=== PATIENT | female | born 1955 | race Caucasian/White ===

== ENCOUNTER → 2017-09-09 05:00 | Outpatient (REF) | payer MEDICARE, SELFPAY ==
[2017-09-09 07:43] LABS: Hematocrit 34.4 % (37-47); Mean Corpuscular Volume 93.7 fL (81-99); Mean Platelet Vol. 10.6 fl (6.2-12.0); Platelet Count 233 K/mm3 (150-450); RBC Distribution Width SD 45.6 fl (35.1-43.9); Red Blood Count 3.67 M/mm3 (4.2-5.4); White Blood Count 7.2 K/mm3 (4.4-11.0)
[2017-09-09 07:44] LABS: Scan Indicated on CBC? Y/N NO
[2017-09-09 07:51] LABS: Anion Gap 9 (5-15); BUN 18 mg/dL (7-18); BUN/Creat Ratio 31.1 RATIO (10-20); Calcium,Total 8.4 mg/dL (8.5-10.1); Chloride 109 mmol/L (98-107); Creatinine, Serum 0.58 mg/dL (0.55-1.02); EST Glomerular Filtration Rate 112 mL/min (>60); Est Glom Filt Rate - Afr Amer 136 mL/min (>60); Glucose 87 mg/dL (70-110); Potassium 3.9 mmol/L (3.5-5.1); Sodium Level 143 mmol/L (136-145)
== END ==
LOC: OLS.ACW300 05:00
PROVIDERS: Visit Provider Family Medicine
DX: I48.91 Unspecified atrial fibrillation (principal)
CPT/HCPCS: 36415; 80048; 85027

== ENCOUNTER → 2017-10-18 05:00 | Outpatient (REF) | payer MEDICARE, MEDICAID, SELFPAY ==
[2017-10-18 07:18] LABS: ALB/GLOB Ratio 1.2 RATIO (0.9-2.4); AST(SGOT) 17 U/L (15-37); Alanine Aminotransfer ALT/SGPT 35 U/L (13-56); Albumin, Serum 3.2 g/dL (3.2-5.0); Alkaline Phosphatase 71 U/L (45-117); Anion Gap 9 (5-15); BUN 21 mg/dL (7-18); BUN/Creat Ratio 37.2 RATIO (10-20); Calcium,Total 8.3 mg/dL (8.5-10.1); Chloride 110 mmol/L (98-107); Creatinine, Serum 0.56 mg/dL (0.55-1.02); EST Glomerular Filtration Rate 115 mL/min (>60); Est Glom Filt Rate - Afr Amer 139 mL/min (>60); Globulin 2.7 g/dL (2.2-4.2); Glucose 79 mg/dL (70-110); Potassium 4.1 mmol/L (3.5-5.1); Protein, Total 5.9 g/dL (6.4-8.2); Sodium Level 145 mmol/L (136-145)
[2017-10-18 07:49] LABS: Hematocrit 35.3 % (37-47); Hemoglobin 11.4 g/dl (12.0-15.0); Mean Corp Hgb Conc 32.3 g/gl (32-36); Mean Corpuscular Volume 92.9 fL (81-99); Mean Platelet Vol. 10.5 fl (6.2-12.0); Platelet Count 249 K/mm3 (150-450); RBC Distribution Width CV 13.8 % (11.6-14.6); RBC Distribution Width SD 45.1 fl (35.1-43.9); White Blood Count 7.1 K/mm3 (4.4-11.0)
[2017-10-18 07:59] LABS: Scan Indicated on CBC? Y/N NO
== END ==
LOC: OLS.ACW300 05:00
PROVIDERS: Visit Provider Family Medicine
DX: G35 Multiple sclerosis (principal); J44.9 Chronic obstructive pulmonary disease, unspecified; N31.9 Neuromuscular dysfunction of bladder, unspecified; R53.2 Functional quadriplegia; R27.9 Unspecified lack of coordination; M62.81 Muscle weakness (generalized)
CPT/HCPCS: 36415; 80053; 85027

== ENCOUNTER → 2018-03-10 05:00 | Outpatient (REF) | payer MEDICARE, MEDICAID, SELFPAY ==
[2018-03-10 07:58] LABS: Hematocrit 37.6 % (37-47); Mean Corp Hgb Conc 31.9 g/gl (32-36); Mean Corpuscular Hgb 29.4 pg (27.0-32.0); Mean Corpuscular Volume 92.2 fL (81-99); Mean Platelet Vol. 10.4 fl (6.2-12.0); Platelet Count 242 K/mm3 (150-450); RBC Distribution Width CV 13.6 % (11.6-14.6); RBC Distribution Width SD 45.3 fl (35.1-43.9); Red Blood Count 4.08 M/mm3 (4.2-5.4); White Blood Count 7.5 K/mm3 (4.4-11.0)
[2018-03-10 07:59] LABS: Scan Indicated on CBC? Y/N NO
[2018-03-10 08:06] LABS: Anion Gap 4 (5-15); BUN 13 mg/dL (7-18); BUN/Creat Ratio 19.6 RATIO (10-20); Calcium,Total 8.5 mg/dL (8.5-10.1); Chloride 112 mmol/L (98-107); Creatinine, Serum 0.66 mg/dL (0.55-1.02); EST Glomerular Filtration Rate 95 mL/min (>60); Est Glom Filt Rate - Afr Amer 116 mL/min (>60); Glucose 84 mg/dL (74-106); Potassium 3.8 mmol/L (3.5-5.1); Sodium Level 144 mmol/L (136-145)
== END ==
LOC: OLS.ACW300 05:00
PROVIDERS: Visit Provider Family Medicine
DX: G35 Multiple sclerosis (principal); J44.9 Chronic obstructive pulmonary disease, unspecified; N31.9 Neuromuscular dysfunction of bladder, unspecified; R53.2 Functional quadriplegia; R27.9 Unspecified lack of coordination; M62.81 Muscle weakness (generalized)
CPT/HCPCS: 36415; 80048; 85027

== ENCOUNTER → 2018-09-08 05:00 | Outpatient (REF) | payer MEDICARE, MEDICAID, SELFPAY ==
[2018-09-08 08:20] LABS: Hematocrit 37.7 % (37-47); Mean Corp Hgb Conc 31.8 g/gl (32-36); Mean Corpuscular Hgb 29.3 pg (27.0-32.0); Mean Platelet Vol. 10.1 fl (6.2-12.0); Platelet Count 227 K/mm3 (150-450); RBC Distribution Width CV 13.7 % (11.6-14.6); RBC Distribution Width SD 46.1 fl (35.1-43.9); White Blood Count 7.4 K/mm3 (4.4-11.0)
[2018-09-08 08:24] LABS: Scan Indicated on CBC? Y/N NO
[2018-09-08 08:26] LABS: Anion Gap 8 (5-15); BUN 16 mg/dL (7-18); BUN/Creat Ratio 24.7 RATIO (10-20); Calcium,Total 8.5 mg/dL (8.5-10.1); Chloride 110 mmol/L (98-107); Creatinine, Serum 0.65 mg/dL (0.55-1.02); EST Glomerular Filtration Rate 98 mL/min (>60); Est Glom Filt Rate - Afr Amer 119 mL/min (>60); Glucose 98 mg/dL (74-106); Sodium Level 143 mmol/L (136-145)
== END ==
LOC: OLS.ACW300 05:00
PROVIDERS: Visit Provider Family Medicine
DX: G35 Multiple sclerosis (principal); J44.9 Chronic obstructive pulmonary disease, unspecified; N31.9 Neuromuscular dysfunction of bladder, unspecified; R53.2 Functional quadriplegia; R27.9 Unspecified lack of coordination; M62.81 Muscle weakness (generalized)
CPT/HCPCS: 36415; 80048; 85027

== ENCOUNTER → 2018-10-06 20:05 | Outpatient (REF) | payer MEDICARE, MEDICAID, SELFPAY ==
[2018-10-06 21:05] LABS: Hematocrit 34.7 % (37-47); Hemoglobin 11.1 g/dl (12.0-15.0); Mean Corpuscular Hgb 30.2 pg (27.0-32.0); Mean Corpuscular Volume 94.3 fL (81-99); Mean Platelet Vol. 10.4 fl (6.2-12.0); Platelet Count 207 K/mm3 (150-450); RBC Distribution Width CV 13.7 % (11.6-14.6); RBC Distribution Width SD 45.1 fl (35.1-43.9); Red Blood Count 3.68 M/mm3 (4.2-5.4)
[2018-10-06 21:06] LABS: Scan Indicated on CBC? Y/N NO
[2018-10-06 21:08] LABS: Color, Urine Yellow (Yellow); Glucose, Dipstick Normal (Normal); Ketone-Dipstick Negative (Negative); Leukocyte Esterase-Dipstick 100 /ul (Negative); Nitrite-Dipstick Negative (Negative); Occult Blood-Urine Negative /ul (Negative); Protein-Dipstick Negative (Negative); Urine Bilirubin Dipstick Negative (Negative); Urine Clarity Sl. Cloudy (Clear); Urine Urobilinogen Normal (Normal)
[2018-10-06 21:14] LABS: Anion Gap 9 (5-15); BUN 12 mg/dL (7-18); BUN/Creat Ratio 13.8 RATIO (10-20); Chloride 110 mmol/L (98-107); Creatinine, Serum 0.87 mg/dL (0.55-1.02); EST Glomerular Filtration Rate 70 mL/min (>60); Est Glom Filt Rate - Afr Amer 85 mL/min (>60); Glucose 163 mg/dL (74-106); Potassium 3.8 mmol/L (3.5-5.1); Sodium Level 144 mmol/L (136-145)
[2018-10-10 13:20] LABS: Procalcitonin 0.07 ng/mL (0.00-0.08)
--- OUTSIDE RECORDS SUMMARY | 2018-12-11 12:52 | XMS RPT_ITS ---
:1955 Author Organization OHIP Care Team Providers Name Role Phone Cisco Orozco Attending Unavailable Cisco Orozco Attending Unavailable Cisco Orozco Attending Unavailable Cisco Orozco Attending Unavailable MARISELA STOCKTON (ESTEFANI) Attending Unavailable CISCO OROZCO Referring Unavailable MARISELA STOCKTON (ESTEFANI) Attending Unavailable CISCO OROZCO Referring Unavailable MARISELA STOCKTON (ESTEFANI) Attending Unavailable CISCO OROZCO Referring Unavailable MARISELA STOCKTON (ESTEFANI) Referring Unavailable PROVIDER, UNKNOWN Referring Unavailable No, PCP Primary Care Unavailable Arthur Mays Attending Unavailable MARISELA STOCKTON Attending Unavailable CISCO OROZCO Referring Unavailable CISCO OROZCO Primary Care Unavailable MARISELA STOCKTON Attending Unavailable CISCO OROZCO Referring Unavailable CISCO OROZCO Primary Care Unavailable MARISELA STOCKTON Attending Unavailable CISCO OROZCO Referring Unavailable CISCO OROZCO S Primary Care Unavailable MARISELA STOCKTON Attending Unavailable CISCO OROZCO Referring Unavailable CISCO OROZCO S Primary Care Unavailable MARISELA STOCKTON Referring Unavailable CISCO OROZCO Primary Care Unavailable PROBLEMS PROBLEMS DATE TYPE CONDITION / CODE ATTENDING STATUS SOURCE 10/06/2018 Admitting Acute cystitis Tabatha, Active [facility] Diagnosis without hematuria / [facility] N30.00(ICD-10) Repository 10/06/2018 Admitting Unspecified asthma, Mays, Active [facility] Diagnosis uncomplicated / [facility] J45.909(ICD-10) Repository 10/06/2018 Admitting Unspecified atrial Mays, Active [facility] Diagnosis fibrillation / [facility] I48.91(ICD-10) Repository 10/06/2018 Admitting Other chronic pain Mays, Active [facility] Diagnosis / G89.29(ICD-10) [facility] Repository 10/06/2018 Admitting Gastro-esophageal Mays, Active [facility] Diagnosis reflux disease [facility] without esophagitis Repository / K21.9(ICD-10) 10/06/2018 Admitting Hyperlipidemia, Mays, Active [facility] Diagnosis unspecified / [facility] E78.5(ICD-10) Repository 10/06/2018 Admitting Essential (primary) Mays, Active [facility] Diagnosis hypertension / [facility] I10(ICD-10) Repository 10/06/2018 Admitting Multiple sclerosis Mays, Active [facility] Diagnosis / G35(ICD-10) [facility] Repository 10/06/2018 Admitting Iron deficiency Mays, Active [facility] Diagnosis anemia, unspecified [facility] / D50.9(ICD-10) Repository 10/06/2018 Admitting Angina pectoris, Tabatha, Active [facility] Diagnosis unspecified / [facility] I20.9(ICD-10) Repository 10/06/2018 Admitting Flaccid neuropathic Mays, 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, 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 Repository classified / N31.2(ICD-10) 10/06/2018 Admitting prison (current) Mays, Active [facility] Diagnosis use of aspirin / [facility] Z79.82(ICD-10) Repository 10/06/2018 Admitting prison (current) Mays, Active [facility] Diagnosis use of [facility] non-steroidal Repository non-inflam (NSAID) / Z79.1(ICD-10) 10/06/2018 Admitting Allergy status to Mays, Active [facility] Diagnosis other antibiotic [facility] agents status / Repository Z88.1(ICD-10) 10/06/2018 Admitting Allergy status to Mays, Active [facility] Diagnosis penicillin / [facility] Z88.0(ICD-10) Repository 10/06/2018 Admitting Allergy status to Mays, Active [facility] Diagnosis oth drug/meds/biol [facility] subst status / Repository Z88.8(ICD-10) 10/06/2018 Admitting Pain, unspecified / Mays, Active [facility] Diagnosis R52(ICD-10) [facility] Repository 09/28/2018 Unknown G35 - Multiple Cisco Orozco Active [facility] G35(ICD-10) Hospital Repository 09/28/2018 Unknown J44.9 - Chronic Cisco Orozco Active [facility] pulmonary disease, Hospital unspecified / Repository J44.9(ICD-10) 09/28/2018 Unknown N31.9 - Cisco Orozco Active [facility] dysfunction of Hospital bladder, Repository unspecified / N31.9(ICD-10) 09/28/2018 Unknown R53.2 - Functional Cisco Orozco Active [facility] quadriplegia / Community R53.2(ICD-10) Hospital Repository 09/28/2018 Unknown R27.9 - Unspecified Cisco Orozco Active [facility] lack of Community coordination / Hospital R27.9(ICD-10) Repository 09/28/2018 Unknown M62.81 - Muscle Cisco Orozco Active [facility] weakness Community (generalized) / Hospital M62.81(ICD-10) Repository 03/04/2018 Active Retention of urine, MARISELA STOCKTON Active [facility] unspecified [facility] Other R33.9(ICD-10) [facility] Repository 03/04/2018 Admitting Unknown / MARISELA STOCKTON Active [facility] diagnosis UNK(Unknown) [facility] System Repository PROCEDURES PROCEDURES No Procedure Records FoundRESULTS RESULTS CR CHEST PORTABLE Observed: 10/07/2018 Status: F Source: [facility] 1:16 AM SYSTEM REPOSITORY Patient Name: SHIN ORJO Diagnostic Radiology Exam Date/Time 10/07/2018 00:40:25 EST Exam CR Chest Portable Ordering Physician Maya -ARTHUR MAYS Accession Number [id number] CPT4 Codes 14735 () Reason For Exam fever, sepsis eval from nursing Report PORTABLE CHEST CLINICAL INDICATION: Fever. Sepsis. COMPARISON: 09/10/2012. TECHNIQUE: Portable upright AP chest. FINDINGS: There are coarse bilateral interstitial markings. Interval lingular streaky density is noted. No consolidation, pneumothorax or pleural effusion is evident. The cardiac and mediastinal silhouette are normal. Moderate mid thoracic dextroconvexity is noted. There are degenerative changes of thoracic spine. IMPRESSION: Lingular subsegmental atelectasis. Report Dictated on Workstation: [id number] Final Dictating Physician: DARIO BERKOWITZ DO, I Signed Date and Time: 10/07/2018 1:18 am Signed by: DARIO BERKOWITZ DO, I Transcribed Date and Time: 10/07/2018 1:19 LACTIC ACID Collected: 10/07/2018 Status: F Source: [facility] 12:20 AM SYSTEM REPOSITORY TYPE CODE TESTS RESULT OUT OF RANGE REFERENCE UNITS LAB LACT3 0.7-2.0 mmol/L Normal Lactic Acid 1.2 Performed By: #### LACT3, CMP3, HEMDF, MDIFF #### [facility] [address] [place] [address] COMP METABOLIC PANEL Collected: 10/07/2018 Status: F Source: [facility] 12:20 AM SYSTEM REPOSITORY TYPE CODE TESTS RESULT OUT OF RANGE REFERENCE UNITS LAB NA3 135-145 mmol/L Sodium Normal 143 LAB K3 3.5-5.1 mmol/L Low Potassium 3.4 LAB CL3 98-107 mmol/L High Chloride 108 LAB CO23 22-30 mmol/L Carbon Normal Dioxide 28 LAB ANIN3 NA Anion Gap 6 LAB GLUC3 70-100 mg/dL High Glucose 149 LAB BUN3 7-20 mg/dL Urea Normal Nitrogen 10 LAB CRET3 0.52-1.25 mg/dL Normal Creatinine 0.57 LAB GF3BR >60 mL/min eGFR > 60.0 LAB GF3WR >60 mL/min eGFR OTHER > 60.0 Result Comment: Source- MDRD equation with creatinine calibration to IDMS(NKDEP) eGFR not recommended for drug dose adjustment LAB CA3 8.4-10.4 mg/dL Calcium Normal 8.8 LAB ALB3 3.5-5.0 g/dL Albumin, Serum Normal 3.6 LAB TP3 6.3-8.2 g/dL Low Total Protein 5.8 LAB BILT3 0.2-1.3 mg/dL Normal Bilirubin,Total 0.2 LAB ALKP3 38-126 U/L Alkaline Normal Phosphatase 49 LAB ALT3 13-69 U/L ALT (SGPT) Normal 44 LAB AST3 15-46 U/L AST (SGOT) Normal 26 Performed By: #### LACT3, CMP3, ANGELO, MDIFF #### [facility] [address] [place] [address] HEMOGRAM W/ AUTODIFF Collected: 10/07/2018 Status: F Source: [facility] 12:20 AM SYSTEM REPOSITORY TYPE CODE TESTS RESULT OUT OF RANGE REFERENCE UNITS LAB IWBC 3.6-10.7 10*3/uL WBC Normal 4.2 LAB RBC 3.80-5.20 10*6/uL Low RBC 3.67 LAB HGB 11.7-16.0 g/dL Low Hemoglobin 10.9 LAB HCT 35.0-47.0 % Low Hematocrit 33.0 LAB MCV 79.0-98.0 fL MCV Normal 90.0 LAB MCH 26.0-34.0 pg MCH Normal 29.7 LAB MCHC 32.0-36.0 % MCHC Normal 33.0 LAB RDW 11.5-14.5 % RDW Normal 14.1 LAB PLT 140-440 10*3/uL Platelet Normal 192 LAB MPV 7.4-10.4 fL MPV Normal 8.4 Performed By: #### LACT3, CMP3, ANGELO MDIFF #### [facility] [address] [place] [address] MANUAL DIFF Collected: 10/07/2018 Status: F Source: [facility] 12:20 AM SYSTEM REPOSITORY TYPE CODE TESTS RESULT OUT OF REFERENCE UNITS RANGE LAB NEUTR 40-80 % Low Seg Neutrophils 36 LAB BANDS 0-3 % Bands Normal 0 LAB LYMPH 20-40 % Lymphocytes High 49 LAB MONOC 2-10 % Monocytes High 14 LAB EO 1-6 % Low Eosinophils 0 LAB BASO 0-2 % Basophils Normal 1 LAB ANCM 2.2-8.2 10*3/uL Low Abs Neutrophile Cnt 1.5 LAB ALCM 1.1-4.5 10*3/uL Abs Lymph Normal Cnt 2.1 LAB AMCM 0.2-1.1 10*3/uL Abs Normal Monocyte Cnt 0.6 LAB AECM 0.0-0.5 10*3/uL Abs Eosin Normal Cnt 0.0 LAB ABCM 0.0-0.2 10*3/uL Abs Baso Normal Cnt 0.0 LAB RBMOR NA RBC Morphology Normal LAB LIMIT NA Cells counted 100 Performed By: #### LACT3, CMP3, HEMDF, MDIFF #### [facility] [address] [place] [address] URINALYSIS,MACRO Collected: 10/07/2018 Status: F Source: [facility] [employer] 12:20 AM SYSTEM REPOSITORY TYPE CODE TESTS RESULT OUT OF REFERENCE UNITS RANGE LAB APPUR Clear NA Appearance CLOUDY LAB COLUR Lt. Yellow NA Color YELLOW LAB USG 1.005-1.030 NA Low Specific [place],Urine 1.003 LAB UPH 5.0-8.0 NA pH,Urine Normal 6.0 LAB ULUK Negative NA Leukocytes 2 + LAB UNIT Negative NA Nitrites NEG LAB UPRO Negative mg/dL Total Protein,Urine NEG LAB UGLU Negative mg/dL Glucose,Urine NEG LAB UKET Negative mg/dL Ketone,Urine NEG LAB UURO 0-1 mg/dL Urobilinogen 0.2 LAB UBIL Negative NA Bilirubin,Ur NEG LAB UBLD Negative {RBC}/uL Occult Blood,Ur NEG Performed By: #### UAMAC, UAMIC #### [facility] [address] [place] [address] URINALYSIS,MICROSCOPIC Collected: Status: F Source: [facility] 10/07/2018 12:20 AM HEALTH SYSTEM REPOSITORY TYPE CODE TESTS RESULT OUT OF REFERENCE UNITS RANGE LAB WBCU 0-5 /[HPF] 6 WBC,Urine - 10 LAB RBCU 0-2 /[HPF] 0 RBC,Urine - 2 LAB EPIU 3-5 /[HPF] 3 Epithelial Cells - 5 LAB DIVYA Negative NA Bacteria Moderate (6-50) LAB HYL 0-1 /[LPF] Cast, 0 Hyaline - 2 Performed By: #### UAMAC, UAMIC #### [facility] [address] [place] [place] [address] Observed: 10/07/2018 Status: F Source: [employer] CULTURE URINE 12:20 AM SYSTEM REPOSITORY Order Comment: Specimen Source Comment:Urine, clean catch CULTURE URINE --> Status: F Multiple organisms, no one type predominant, suggestive of collection contamination or delayed transport to laboratory. Recollect if clinically indicated. collection contamination or delayed transport to laboratory. Recollect if clinically indicated. Performed By: #### C/UR #### [facility] [address] [address] ED PROVIDER NOTE Observed: 10/06/2018 Status: F Source: [facility] 11:58 PM SYSTEM REPOSITORY [facility] ED eMERGENCY dEPARTMENT eNCOUnter Pt Name: Shin Rojo Birthdate 1955 Date of evaluation: 10/06/2018 Provider: Arthur Mays MD CHIEF CONCERN Chief Complaint Patient presents with ? Generalized Body Aches CHIEF CONCERN / HISTORY OF PRESENT ILLNESS Here from [facility]. Today noted to be febrile. Was given tylenol. They noticed that she had stronger smell to the urine. She seemed lethargic and they wanted to make sure she was not septic but could not get an IV to send labs. Patient reports chronic indwelling patrick and fever with chills over the past 2 days. She laughs saying they only sent her because she had no IV. She says she otherwise feels well. REVIEW OF SYSTEMS Constitutional: Mild fatigue. HENT: No sore throat. No congestion. Eye: No double vision. No blurry vision. No eye pain. Respiratory: No cough. No dyspnea. No wheezing. Cardiovascular: No chest pain. No palpitations. No lightheadedness. No leg swelling. GI: No abdominal pain. No diarrhea. No constipation. No nausea. No vomiting. : No frequency. No dysuria. No urgency. MSK: No arthralgias. No myalgias. Skin: No rashes. Neuro: No numbness. No tingling. No weakness. No headache. PAST MEDICAL HISTORY Past Medical History: Diagnosis Date ? Allergic rhinitis ? Angina pectoris (HCC) ? Asthma ? Atrial fibrillation (HCC) ? Chronic pain ? Constipation ? GERD (gastroesophageal reflux disease) ? Hyperlipidemia ? Hypertension ? Iron deficiency anemia ? MS (multiple sclerosis) (HCC) ? Muscle weakness ? Neuromuscular dysfunction of bladder SURGICAL HISTORY Past Surgical History: Procedure Laterality Date ? INSERT/CHANGE PATRICK CATHETER - SIMPLE CURRENT MEDICATIONS Previous Medications ACETIC ACID 0.25 % IRRIGATION Irrigate with as directed daily Irrigate with as directed daily. ASCORBIC ACID (VITAMIN C) 500 MG TABLET Take 1,000 mg by mouth daily ASPIRIN 81 MG TABLET Take 81 mg by mouth daily BACLOFEN (LIORESAL) 20 MG TABLET Take 20 mg by mouth 4 times daily CALCIUM CARBONATE 1250 MG CAPSULE Take 1,250 mg by mouth 2 times daily (with meals) CALCIUM CARBONATE 500 MG CHEW Take 200 mg by mouth 3 times daily as needed CRANBERRY 400 MG TABS Take by mouth 2 times daily CYCLOBENZAPRINE (FLEXERIL) 5 MG TABLET Take 5 mg by mouth every 8 hours as needed for Muscle spasms ERGOCALCIFEROL (ERGOCALCIFEROL) 65416 UNITS CAPSULE Take 50,000 Units by mouth once a week EZETIMIBE (ZETIA) 10 MG TABLET Take 10 mg by mouth nightly FERROUS SULFATE 325 (65 FE) MG TABLET Take 325 mg by mouth daily (with breakfast) GABAPENTIN (NEURONTIN) 300 MG CAPSULE Take 300 mg by mouth every 8 hours IBUPROFEN (ADVIL;MOTRIN) 200 MG TABLET Take 200 mg by mouth every 6 hours as needed for Pain LACTOBACILLUS (ACIDOPHILUS PO) Take by mouth LIDOCAINE (LIDODERM) 5 % Place 1 patch onto the skin daily 12 hours on, 12 hours off. LORATADINE (CLARITIN) 10 MG TABLET Take 10 mg by mouth daily MAGNESIUM HYDROXIDE (MILK OF MAGNESIA) 400 MG/5ML SUSPENSION Take by mouth daily as needed for Constipation MELATONIN 1 MG Take 1 mg by mouth daily MELATONIN 3 MG TABS TABLET Take 3 mg by mouth daily MENTHOL, TOPICAL ANALGESIC, 4 % GEL Apply topically every 12 hours as needed MULTIPLE VITAMINS-MINERALS (MULTIVITAMIN PO) Take by mouth SODIUM CHLORIDE (OCEAN, BABY AYR) 0.65 % NASAL SPRAY 1 spray by Nasal route as needed for Congestion TIZANIDINE (ZANAFLEX) 2 MG TABLET Take 2 mg by mouth 3 times daily as needed ALLERGIES Ciprofloxacin; Nadolol; Penicillins; and Pregabalin FAMILY HISTORY History reviewed. No pertinent family history. SOCIAL HISTORY Social History Social History ? Marital status: Spouse name: N/A ? Number of children: N/A ? Years of education: N/A Social History Main Topics ? Smoking status: Never Smoker ? Smokeless tobacco: Never Used ? Alcohol use No ? Drug use: No ? Sexual activity: No Other Topics Concern ? None Social History Narrative ? None SCREENINGS PHYSICAL EXAM Vitals: As documented in EMR have been reviewed throughout ED course. General: Nontoxic. Conversational. Appears stated age. Skin: Warm. Dry. Intact. No systemic rashes or lesions. Eyes: Pupils are equally round and reactive to light. Extraocular motions are intact. Clear sclera. No gaze preference. HENT: Atraumatic. Normocephalic. Trachea midline. Mucosal membranes moist. Posterior oropharynx without erythema or exudate. Lungs: Clear to auscultation throughout. Nonlabored breathing. Cardiovascular: No murmurs, rubs, or gallops appreciated. No significant pedal edema. No JVD. Symmetric radial pulses. Abdomen: Soft and nontender. Nondistended. Bowel sounds are present. Musculoskeletal: No asymmetry. No deformities. No effusions. Neuro: Alert. Oriented x 3. No facial asymmetry. Facial sensation symmetric. No aphasia. No dysarthria. Midline tongue protrusion. Posterior oropharynx with symmetric elevation. She can lift her arms from the bed but is weak bilaterally (at baseline per patient). She cannot oppose gravity in lower extremities (at baseline per patient) Psych: Appropriate. Cooperative. REVIEWED DIAGNOSTIC RESULTS RADIOLOGY Xr Chest Portable Result Date: 10/07/2018 Patient Name: SHIN ROJO ---Diagnostic Radiology--- Exam Date/Time 10/07/2018 00:40:25 EST Exam CR Chest Portable Ordering Physician ARTHUR JASSO Accession Number [id number] CPT4 Codes 60013 () Reason For Exam fever, sepsis eval from nursing Report PORTABLE CHEST CLINICAL INDICATION: Fever. Sepsis. COMPARISON: 09/10/2012. TECHNIQUE: Portable upright AP chest. FINDINGS: There are coarse bilateral interstitial markings. Interval lingular streaky density is noted. No consolidation, pneumothorax or pleural effusion is evident. The cardiac and mediastinal silhouette are normal. Moderate mid thoracic dextroconvexity is noted. There are degenerative changes of thoracic spine. IMPRESSION: Lingular subsegmental atelectasis. Report Dictated on Workstation: [id number] --- Final --- Dictating Physician: DARIO BERKOWITZ DO, I Signed Date and Time: 10/07/2018 1:18 am Signed by: DARIO BERKOWITZ DO, I Transcribed Date and Time: 10/07/2018 1:19 LABS: Labs Reviewed URINALYSIS - Abnormal; Notable for the following: Result Value Specific [place], Urine 1.003 (*) All other components within normal limits Narrative: Test Performed by [facility], [address] [place], [place] [address] CBC WITH AUTO DIFFERENTIAL - Abnormal; Notable for the following: RBC 3.67 (*) Hemoglobin 10.9 (*) Hematocrit 33.0 (*) All other components within normal limits Narrative: Test Performed by [facility], [address] [place] [address] COMPREHENSIVE METABOLIC PANEL - Abnormal; Notable for the following: Potassium 3.4 (*) Chloride 108 (*) Glucose 149 (*) Total Protein 5.8 (*) All other components within normal limits Narrative: Test Performed by [facility], [address] [place] [address] MANUAL DIFFERENTIAL - Abnormal; Notable for the following: Seg Neutrophils 36 (*) Lymphocytes 49 (*) Monocytes 14 (*) Eosinophils 0 (*) Absolute Neut # 1.5 (*) All other components within normal limits Narrative: Test Performed by [facility], [facility] [address] [place] [address] URINE CULTURE LACTIC ACID, PLASMA Narrative: Test Performed by [facility], [facility] [address] [place] [address] URINALYSIS WITH MICROSCOPIC Narrative: Test Performed by [facility], [address] [place] [address] All other labs were within normal range or not returned as of this dictation. EMERGENCY DEPARTMENT COURSE and DIFFERENTIAL DIAGNOSIS/MDM: ? Nursing notes were reviewed. Patient was evaluated. Orders placed as below. ? IV access established. She is not altered, non-tachypneic, and without tachycardia. I have a low suspicion for sepsis though she could have an underlying infection. ? Labs reviewed and with mild hypokalemia, likely UTI. ? Imaging reviewed. ? Patient re-evaluated and without new symptoms. Patrick was exchanged this morning. ? Low suspicion for sepsis, pneumonia, acute intra-abdominal process, stroke. Medications 0.9 % sodium chloride bolus (0 mLs Intravenous Stopped 10/07/18 012) sulfamethoxazole-trimethoprim (BACTRIM DS;SEPTRA DS) 800-160 MG per tablet 1 tablet (1 tablet Oral Given 10/07/18 0128) Orders Placed This Encounter Procedures ? Urine Culture ? XR CHEST PORTABLE ? Urinalysis ? Lactic Acid, Plasma ? Hemogram (CBC) w/Auto Diff ? Comprehensive Metabolic Panel ? Urinalysis with Microscopic ? Manual Differential ? Vital signs per Policy ? Check pulse oximetry ? Cardiac telemetry monitoring ? Insert peripheral IV CRITICAL CARE TIME Zero / not met minutes, excluding separately reportable procedures were spent directly caring for patient, interpreting testing, consulting, and documenting care. There was a high probability of clinically significant/life threatening deterioration in the patient's condition which required my urgent intervention. CONSULTS: None PROCEDURES (if any): Procedures FINAL IMPRESSION 1. Acute cystitis without hematuria DISPOSITION/PLAN DISPOSITION PATIENT REFERRED TO: [place] [address] 2-3 days DISCHARGE MEDICATIONS: New Prescriptions SULFAMETHOXAZOLE-TRIMETHOPRIM (BACTRIM DS) 800-160 MG PER TABLET Take 1 tablet by mouth 2 times daily for 4 days (Please note: Portions of this note were completed with a voice recognition program. Efforts were made to edit the dictations but occasionally words and phrases are mis-transcribed.) Form [id number] Arthur Mays MD (electronically signed) Emergency Medicine Provider Arthur Mays MD 10/07/18 0130 CBC-COMPLETE BLOOD CNT Collected: 10/06/2018 Status: F Source: [facility] NO DIFF 8:05 PM [facility] REPOSITORY TYPE CODE TESTS RESULT OUT OF RANGE REFERENCE UNITS LAB L100.1000 4.4-11.0 K/mm3 Normal WBC 5.0 LAB L100.1200 4.2-5.4 M/mm3 Low RBC 3.68 LAB L100.1300 12.0-15.0 g/dl Low HGB 11.1 LAB L100.1400 37-47 % Low HCT 34.7 LAB L100.1500 81-99 fL Normal MCV 94.3 LAB L100.1600 27.0-32.0 pg Normal MCH 30.2 LAB L100.1700 32-36 g/gl Normal MCHC 32.0 LAB L100.1810 11.6-14.6 % Normal RDW CV 13.7 LAB L100.1820 35.1-43.9 fl High RDW SD 45.1 LAB L100.1900 150-450 K/mm3 Normal PLT 207 LAB L100.2000 6.2-12.0 fl Normal MPV 10.4 Performed By: #### L100.0500 #### [facility] [address] [place], [address] BASIC METABOLIC Collected: 10/06/2018 Status: F Source: [facility] PROFILE (BMP) 8:05 PM [facility] Order Comment: Comments: PATRICK TYPE CODE TESTS RESULT OUT OF RANGE REFERENCE UNITS LAB L501.0100 74-106 mg/dL High GLU 163 Result Comment: Fasting Glucose result greater than or equal to 126 mg/dL suggests DIABETES MELLITUS per A.D.A. criteria. Please note revised GLUCOSE reference range effective 2017. LAB L501.1000 7-18 mg/dL Normal BUN 12 LAB L501.1100 0.55-1.02 mg/dL Normal CREAT,SERUM 0.87 Result Comment: The validity of the calculated GFR AND GFRAA in patients over 70 years has not been determined. Clinical correlation is essential. LAB L501.1110 >60 mL/min Normal EST GFR 70 Result Comment: Non- GFR Calc LAB L501.1115 >60 mL/min Normal EST GFR - AA 85 Result Comment: GFR Calc LAB L501.1300 10-20 RATIO Normal BUN/CRE 13.8 LAB L501.2200 8.5-10.1 mg/dL CA Normal 9.0 LAB L501.5300 136-145 mmol/L NA Normal 144 LAB L501.5600 3.5-5.1 mmol/L K Normal 3.8 LAB L501.5900 98-107 mmol/L High CL 110 LAB L501.6100 21.0-32.0 mmol/L Normal CO2 25.0 LAB L501.6200 5-15 Normal GAP 9 Performed By: #### L500.2500 #### [facility] [address] [place], [address] PROCALCITONIN Collected: 10/06/2018 Status: F Source: [place] 8:05 PM [facility] REPOSITORY TYPE CODE TESTS RESULT OUT OF REFERENCE UNITS RANGE LAB L3300.0980 0.00-0.08 ng/mL Procalcitonin Normal 0.07 Result Comment: The change of PCT concentration over time provides prognostic information about the risk of mortality within 28 days for patients diagnosed with severe sepsis or septic shock coming from the emergency department, ICU, other medical wards, or directly from outside the hospital. Data supports the use of PCT determinations from the day severe sepsis or septic shock is first diagnosed (Day 0) or the day thereafter (Day 1) and the fourth day after diagnosis (Day 4) for the classification of patients into higher and lower risk for mortality within 28 days according to the workflow below: PCT Day 0(or Day 1) - PCT Day 4 delta PCT = X 100% PCT Day 0 (or Day 1) A decrease of PCT levels below or equal to 80% defines a positive delta PCT test result representing a higher risk for 28-day all-cause mortality of patients diagnosed with severe sepsis or septic shock. A decreased of PCT levels of more than 80% defines a negative delta PCT result representing a lower risk for 28-day all-cause mortality of patients diagnosed with severe sepsis or septic shock. To determine delta PCT results from the absolute PCT concentrations of a patient obtained on the day severe sepsis or septic shock was first diagnosed (or 24 hours later) and on Day 4, go to [email or web address]. Performed at: [place] [facility] [id number] Doughnut Machine Operator Helper: Primo Niño MD, Phone: [phone] Performed By: #### L3300.0980 #### [facility] (refer to report for specific site) refer to report for address and phone number URINALYSIS, ROUTINE Collected: 10/06/2018 Status: F Source: PHU (DIPSTICK) 2:00 PM [facility] REPOSITORY Order Comment: Comments: CELINA How was Urine Obtained? CATHETER SPECIMEN TYPE CODE TESTS RESULT OUT OF RANGE REFERENCE UNITS LAB L400.3000 Yellow COLOR Normal Yellow LAB L400.3050 Clear Normal CLARITY Sl. Cloudy LAB L400.3200 Normal mg/dl Normal GLUCOSE, UR Normal LAB L400.3300 Negative mg/dL Normal BILIRUBIN URINE Negative LAB L400.3400 Negative mg/dl Normal KETONE UR Negative LAB L400.3465 1.002-1.030 Normal SP.GR. DIPSTX 1.010 LAB L400.3550 5.0 - 8.0 pH UR Normal 7.0 LAB L400.3600 Negative mg/dl PROT Normal DIPSTX Negative LAB L400.3700 Normal mg/dl Normal UROBILI Normal LAB L400.3750 Negative Normal NITRITE UR Negative LAB L400.3780 Negative /ul Normal OCCULT BLOOD-UR Negative LAB L400.3800 Negative /ul High LEUK ESTERASE 100 Performed By: #### L400.2010 #### [facility] [address] [place], [address] Observed: 10/06/2018 Status: F Source: PHU CULTURE, URINE 2:00 PM [facility] REPOSITORY Urine Culture ORGANISM 1: Mixed Gram Pos AND Gram Neg Org Mcclure Count >100,000 MIX CULTURE Mixed contaminants. Submit a new specimen if indicated. Performed By: #### M100.0650 #### [facility] [address] [facility] [place], [address] CBC-COMPLETE BLOOD CNT Collected: 09/08/2018 Status: F Source: PHU NO DIFF 7:10 AM [facility] REPOSITORY Order Comment: 310/1 TYPE CODE TESTS RESULT OUT OF RANGE REFERENCE UNITS LAB L100.1000 4.4-11.0 K/mm3 Normal WBC 7.4 LAB L100.1200 4.2-5.4 M/mm3 Low RBC 4.10 LAB L100.1300 12.0-15.0 g/dl Normal HGB 12.0 LAB L100.1400 37-47 % Normal HCT 37.7 LAB L100.1500 81-99 fL Normal MCV 92.0 LAB L100.1600 27.0-32.0 pg Normal MCH 29.3 LAB L100.1700 32-36 g/gl Low MCHC 31.8 LAB L100.1810 11.6-14.6 % Normal RDW CV 13.7 LAB L100.1820 35.1-43.9 fl High RDW SD 46.1 LAB L100.1900 150-450 K/mm3 Normal PLT 227 LAB L100.2000 6.2-12.0 fl Normal MPV 10.1 Performed By: #### L100.0500 #### [facility] [address] [facility] [place], [address] BASIC METABOLIC Collected: 09/08/2018 Status: F Source: PHU PROFILE (BMP) 7:10 AM [facility] REPOSITORY Order Comment: 310/1 TYPE CODE TESTS RESULT OUT OF RANGE REFERENCE UNITS LAB L501.0100 74-106 mg/dL Normal GLU 98 Result Comment: Please note revised GLUCOSE reference range effective 2017. LAB L501.1000 7-18 mg/dL Normal BUN 16 LAB L501.1100 0.55-1.02 mg/dL Normal CREAT,SERUM 0.65 Result Comment: The validity of the calculated GFR AND GFRAA in patients over 70 years has not been determined. Clinical correlation is essential. LAB L501.1110 >60 mL/min Normal EST GFR 98 Result Comment: Non- GFR Calc LAB L501.1115 >60 mL/min Normal EST GFR - AA 119 Result Comment: GFR Calc LAB L501.1300 10-20 RATIO High BUN/CRE 24.7 LAB L501.2200 8.5-10.1 mg/dL CA Normal 8.5 LAB L501.5300 136-145 mmol/L NA Normal 143 LAB L501.5600 3.5-5.1 mmol/L K Normal 4.0 LAB L501.5900 98-107 mmol/L High CL 110 LAB L501.6100 21.0-32.0 mmol/L Normal CO2 25.0 LAB L501.6200 5-15 Normal GAP 8 Performed By: #### L500.2500 #### [facility] [address] [facility] [place], [address] PROGRESS Observed: 04/07/2018 Status: COMPLETED Source: [place] 2:43 PM [facility] REPOSITORY O ID: [id number] Author: Marisela Stockton (Pa) Service: (none) Author Type: Physician Reinsurance Clerk Type: Progress Notes Filed: 04/07/2018 3:37 PM Note Text: The patient with chronic urinary retention /neurogenic bladder presents today for the change of her Suprapubic catheter. Pt c/o leaking urine from below. Pt states that last night she was soaking wet, small amount of urine in drainage bag. Pt is to be flushed every day to keep catheter patent, she states that it does not happen every day. Staff feels that it is not necessary. Pt denies fever, chills, hematuria. She states that facility will change catheter in future, ins. Will not pay to have her transported to office. Procedure: The Suprapubic latex catheter was changed without difficulty. The new 16 F indwelling catheter was changed by Marisela BertrandC.using sterile technique. The balloon was inflated to 10CC with sterile water. The patient tolerated the procedure well. Comments: cloudy urine in drainage bag. ASSESSMENT/PLAN: 1. Retention of urine, unspecified - ICD9: 788.20, ICD10: R33.9 s/p tube change Urine culture Marisela Stockton PA-C CNOV Observed: 04/07/2018 Status: COMPLETED Source: [place] 2:00 PM [facility] REPOSITORY Office Visit (YASL) SHIN ROJO ([id number]) 1955 F [facility] Date Time Provider Department 04/07/18 2:00 PM MARISELA STOCKTON (PA) During your visit today, we recorded the following information about you: Blood pressure Weight Height 104/58 70.3 kg 1.6 m Marisela Stockton PA-C 04/07/2018 3:37 PM Signed The patient with chronic urinary retention /neurogenic bladder presents today for the change of her Suprapubic catheter. Pt c/o leaking urine from below. Pt states that last night she was soaking wet, small amount of urine in drainage bag. Pt is to be flushed every day to keep catheter patent, she states that it does not happen every day. Staff feels that it is not necessary. Pt denies fever, chills, hematuria. She states that facility will change catheter in future, ins. Will not pay to have her transported to office. Procedure: The Suprapubic latex catheter was changed without difficulty. The new 16 F indwelling catheter was changed by Marisela Stockton P.A.-C.using sterile technique. The balloon was inflated to 10CC with sterile water. The patient tolerated the procedure well. Comments: cloudy urine in drainage bag. ASSESSMENT/PLAN: 1. Retention of urine, unspecified - ICD9: 788.20, ICD10: R33.9 s/p tube change Urine culture Marisela Stockton PA-C Referring Provider: CISCO OROZCO [[id number]] Allergies As of Date: 04/07/2018 Noted Allergy Reaction All Cillins [Other] 06/01/2003 CIPROFLOXACIN 07/13/2016 1 - Mental Status Change NADOLOL 09/30/2015 16 - Unknown PENICILLIN V 11/17/2002 PREGABALIN 09/30/2015 16 - Unknown Date Reviewed: 04/07/2018 Reviewed by: Marisela Stockton (Pa) - Fully Assessed Reason for Visit: Urinary Retention [228] Primary Visit Diagnosis:Retention of urine, unspecified [R33.9] Order(s):URINE CULTURE [SQURCUL] Order #: [id number] Prescriptions as of 04/07/2018 Sig: TIZANIDINE 2 MG TABLET Take 2 mg by mouth. MULTIVITAMIN TABLET Take 1 tablet by mouth once d* EZETIMIBE 10 MG TABLET Take 10 mg by mouth daily at * ASPIRIN 81 MG TABLET,DELAYED * Take 81 mg by mouth once bharat* LORATADINE 10 MG TABLET Take 10 mg by mouth once bharat* OMEPRAZOLE 20 MG CAPSULE,RAS* Take 20 mg by mouth once bharat* CYANOCOBALAMIN (VIT B-12) 1,0* Take 1,000 mcg by mouth once * BACLOFEN 20 MG TABLET Take 20 mg by mouth three dave* DOCUSATE SODIUM ORAL Take 100 mg by mouth as neede* CRANBERRY ORAL Take 400 mg by mouth twice da* ASCORBIC ACID (VITAMIN C) 1,0* Take 1,000 mg by mouth twice * MENTHOL 4 % TOPICAL GEL Apply 4 % to affected area as* HYDROCODONE 5 MG-ACETAMINOPHE* Take 1 tablet by mouth every * MELATONIN 1 MG TABLET Take 1 mg by mouth at bedtime* MAGNESIUM HYDROXIDE 400 MG/5 * Take 30 mL by mouth once bharat* SODIUM CHLORIDE 0.65 % NASAL * Use 1 [place] in the nose every* IBUPROFEN 200 MG TABLET Take 200 mg by mouth every 8 * LIDOCAINE 5 % TOPICAL PATCH Apply 1 Patch as directed as * SENNOSIDES 8.6 MG TABLET Take 8.6 mg by mouth once david* ERGOCALCIFEROL (VITAMIN D2) 5* Take 50,000 Units by mouth on* GABAPENTIN 300 MG CAPSULE Take 300 mg by mouth three ti* Problem List As Of Date 04/07/2018 Noted Resolved MYALGIA AND MYOSITIS NOS [IIG0521] INVALID FOR* SACROILIITIS NEC [M46.1] INVALID FOR* SOMAT DYSFUNC LOWER EXTR [M99.9] INVALID FOR* SOMAT DYSFUNC PELVIC REG [M99.9] INVALID FOR* SOMAT DYSFUNC SACRAL REG [M99.9] INVALID FOR* SOMAT DYSFUNC LUMBAR REG [M99.9] INVALID FOR* SOMAT DYSFUNC THORAC REG [M99.9] INVALID FOR* SOMAT DYSFUNC UPPER EXTR [M99.9] INVALID FOR* SOMAT DYSFUNC CERVIC REG [M99.81] INVALID FOR* MS (multiple sclerosis) [G35] INVALID FOR* Retention of urine, unspecified [R33.9] INVALID FOR* Disposition: Return if symptoms worsen or fail to improve. Follow-up and Disposition History Recorded Encounter Status:Closed by MARISELA STOCKTON on 04/07/18 Observed: 04/07/2018 Status: F Source: [facility] Ravel Law URINE 12:30 PM [facility] REPOSITORY Test performed at [facility] Organisms cultured are indicative of probable nonclean catch specimen or contamination of specimen collection system. No further identification or susceptibility testing will be performed. Please submit new specimen. Plates will be held for 5 days. Performed By: #### C_URI #### [place] [address] PROGRESS Observed: 04/01/2018 Status: COMPLETED Source: [place] 12:29 PM [facility] REPOSITORY HNO ID: [id number] Author: Marisela Stockton (Pa) Service: (none) Author Type: Physician Reinsurance Clerk Type: Progress Notes Filed: 04/01/2018 12:31 PM Note Text: ESTABLISHED PATIENT OFFICE VISIT HISTORY OF PRESENT ILLNESS: Shin Rojo is a 63 year old female, There were no vitals taken for this visit. with a PMH significant for s/p tube change. Pt in wheelchair, unable to do catheter change safely, will reschedule when they can bring her on a cot. . LAB: No results found for: CREAT No results found for: PSA No results found for: UGLUC, UBILI, UKET, SPGR, UHB, UPH, UPROT, UROBIL, NITRITES, UWBC, UCOLAP MEDICATIONS: tiZANidine (ZANAFLEX) 2 mg tablet Take 2 mg by mouth. multivitamin tablet Take 1 tablet by mouth once daily. ezetimibe (ZETIA) 10 mg tablet Take 10 mg by mouth daily at bedtime. aspirin, enteric coated (ASPIRIN, ENTERIC COATED) 81 mg EC tablet Take 81 mg by mouth once daily. loratadine (CLARITIN) 10 mg tablet Take 10 mg by mouth once daily. omeprazole (PRILOSEC) 20 mg capsule Take 20 mg by mouth once daily. cyanocobalamin (VITAMIN B-12) 1,000 mcg tab Take 1,000 mcg by mouth once daily. baclofen (LIORESAL) 20 mg tablet Take 20 mg by mouth three times daily. DOCUSATE SODIUM ORAL Take 100 mg by mouth as needed. CRANBERRY FRUIT EXTRACT (CRANBERRY ORAL) Take 400 mg by mouth twice daily. Ascorbic Acid (VITAMIN C) 1,000 mg tablet Take 1,000 mg by mouth twice daily. menthol (BIOFREEZE, MENTHOL,) 4 % gel Apply 4 % to affected area as needed. HYDROcodone-acetaminophen (NORCO) 5-325 mg per tablet Take 1 tablet by mouth every 6 hours as needed for Pain. melatonin 1 mg tab Take 1 mg by mouth at bedtime as needed. magnesium hydroxide (MOM) 400 mg/5 mL suspension Take 30 mL by mouth once daily as needed for Constipation. sodium chloride (OCEAN NASAL) 0.65 % nasal spray Use 1 [place] in the nose every 2 hours as needed. ibuprofen (MOTRIN) 200 mg tablet Take 200 mg by mouth every 8 hours as needed for Pain. lidocaine (LIDODERM) 5 % Apply 1 Patch as directed as needed. senna (SENNA) 8.6 mg tab Take 8.6 mg by mouth once daily as needed (Constipation). ergocalciferol, vitamin D2, (VITAMIN D) 50,000 unit capsule Take 50,000 Units by mouth once each week. gabapentin (NEURONTIN) 300 mg capsule Take 300 mg by mouth three times daily. Review of Systems HISTORIES PAST MEDICAL HISTORY Diagnosis Date - Anemia - Asthma - Atrial fibrillation (HCC) - Constipation - Functional quadriplegia (HCC) - Hyperlipidemia - Insomnia - Lack of coordination - Major depressive disorder - Multiple sclerosis (HCC) - Muscle weakness (generalized) - Neurogenic bladder - Pulmonary disease - Retention of urine, unspecified 03/04/2018 - Retention, urine No family history on file. Social History Substance Use Topics - Smoking status: Never Smoker - Smokeless tobacco: Never Used - Alcohol use No PHYSICAL EXAMINATION GENERAL APPEARANCE: Well appearing, alert, in no acute distress, well-hydrated, well nourished. ASSESSMENT/PLAN: 1. Retention of urine, unspecified - ICD9: 788.20, ICD10: R33.9 Nothing done, needs to be on a cot for catheter change. Contacted facililty to schedule. Marisela Stockton PA-C CNOV Observed: 04/01/2018 Status: COMPLETED Source: [place] 12:00 PM [facility] REPOSITORY Office Visit (AKURFL) SHIN ROJO ([id number]) 1955 F [facility] Date Time Provider Department 04/01/18 12:00 PM MARISELA STOCKTON) SERINA During your visit today, we recorded the following information about you: Marisela Stockton PA-C 04/01/2018 12:31 PM Signed ESTABLISHED PATIENT OFFICE VISIT HISTORY OF PRESENT ILLNESS: Shin Rojo is a 63 year old female, There were no vitals taken for this visit. with a PMH significant for s/p tube change. Pt in wheelchair, unable to do catheter change safely, will reschedule when they can bring her on a cot. . LAB: No results found for: CREAT No results found for: PSA No results found for: UGLUC, UBILI, UKET, SPGR, UHB, UPH, UPROT, UROBIL, NITRITES, UWBC, UCOLAP MEDICATIONS: tiZANidine (ZANAFLEX) 2 mg tablet Take 2 mg by mouth. multivitamin tablet Take 1 tablet by mouth once daily. ezetimibe (ZETIA) 10 mg tablet Take 10 mg by mouth daily at bedtime. aspirin, enteric coated (ASPIRIN, ENTERIC COATED) 81 mg EC tablet Take 81 mg by mouth once daily. loratadine (CLARITIN) 10 mg tablet Take 10 mg by mouth once daily. omeprazole (PRILOSEC) 20 mg capsule Take 20 mg by mouth once daily. cyanocobalamin (VITAMIN B-12) 1,000 mcg tab Take 1,000 mcg by mouth once daily. baclofen (LIORESAL) 20 mg tablet Take 20 mg by mouth three times daily. DOCUSATE SODIUM ORAL Take 100 mg by mouth as needed. CRANBERRY FRUIT EXTRACT (CRANBERRY ORAL) Take 400 mg by mouth twice daily. Ascorbic Acid (VITAMIN C) 1,000 mg tablet Take 1,000 mg by mouth twice daily. menthol (BIOFREEZE, MENTHOL,) 4 % gel Apply 4 % to affected area as needed. HYDROcodone-acetaminophen (NORCO) 5-325 mg per tablet Take 1 tablet by mouth every 6 hours as needed for Pain. melatonin 1 mg tab Take 1 mg by mouth at bedtime as needed. magnesium hydroxide (MOM) 400 mg/5 mL suspension Take 30 mL by mouth once daily as needed for Constipation. sodium chloride (OCEAN NASAL) 0.65 % nasal spray Use 1 [place] in the nose every 2 hours as needed. ibuprofen (MOTRIN) 200 mg tablet Take 200 mg by mouth every 8 hours as needed for Pain. lidocaine (LIDODERM) 5 % Apply 1 Patch as directed as needed. senna (SENNA) 8.6 mg tab Take 8.6 mg by mouth once daily as needed (Constipation). ergocalciferol, vitamin D2, (VITAMIN D) 50,000 unit capsule Take 50,000 Units by mouth once each week. gabapentin (NEURONTIN) 300 mg capsule Take 300 mg by mouth three times daily. Review of Systems HISTORIES PAST MEDICAL HISTORY Diagnosis Date - Anemia - Asthma - Atrial fibrillation (HCC) - Constipation - Functional quadriplegia (HCC) - Hyperlipidemia - Insomnia - Lack of coordination - Major depressive disorder - Multiple sclerosis (HCC) - Muscle weakness (generalized) - Neurogenic bladder - Pulmonary disease - Retention of urine, unspecified 03/04/2018 - Retention, urine No family history on file. Social History Substance Use Topics - Smoking status: Never Smoker - Smokeless tobacco: Never Used - Alcohol use No PHYSICAL EXAMINATION GENERAL APPEARANCE: Well appearing, alert, in no acute distress, well-hydrated, well nourished. ASSESSMENT/PLAN: 1. Retention of urine, unspecified - ICD9: 788.20, ICD10: R33.9 Nothing done, needs to be on a cot for catheter change. Contacted facililty to schedule. Marisela Stockton PA-C Referring Provider: CSICO OROZCO [[id number]] Allergies As of Date: 04/01/2018 Noted Allergy Reaction All Cillins [Other] 06/01/2003 CIPROFLOXACIN 07/13/2016 1 - Mental Status Change NADOLOL 09/30/2015 16 - Unknown PENICILLIN V 11/17/2002 PREGABALIN 09/30/2015 16 - Unknown Date Reviewed: 04/01/2018 Reviewed by: Marisela Stockton (Pa) - Fully Assessed Primary Visit Diagnosis:Retention of urine, unspecified [R33.9] Prescriptions as of 04/01/2018 Sig: TIZANIDINE 2 MG TABLET Take 2 mg by mouth. MULTIVITAMIN TABLET Take 1 tablet by mouth once d* EZETIMIBE 10 MG TABLET Take 10 mg by mouth daily at * ASPIRIN 81 MG TABLET,DELAYED * Take 81 mg by mouth once bharat* LORATADINE 10 MG TABLET Take 10 mg by mouth once bharat* OMEPRAZOLE 20 MG CAPSULE,RAS* Take 20 mg by mouth once bharat* CYANOCOBALAMIN (VIT B-12) 1,0* Take 1,000 mcg by mouth once * BACLOFEN 20 MG TABLET Take 20 mg by mouth three dave* DOCUSATE SODIUM ORAL Take 100 mg by mouth as neede* CRANBERRY ORAL Take 400 mg by mouth twice da* ASCORBIC ACID (VITAMIN C) 1,0* Take 1,000 mg by mouth twice * MENTHOL 4 % TOPICAL GEL Apply 4 % to affected area as* HYDROCODONE 5 MG-ACETAMINOPHE* Take 1 tablet by mouth every * MELATONIN 1 MG TABLET Take 1 mg by mouth at bedtime* MAGNESIUM HYDROXIDE 400 MG/5 * Take 30 mL by mouth once bharat* SODIUM CHLORIDE 0.65 % NASAL * Use 1 [place] in the nose every* IBUPROFEN 200 MG TABLET Take 200 mg by mouth every 8 * LIDOCAINE 5 % TOPICAL PATCH Apply 1 Patch as directed as * SENNOSIDES 8.6 MG TABLET Take 8.6 mg by mouth once david* ERGOCALCIFEROL (VITAMIN D2) 5* Take 50,000 Units by mouth on* GABAPENTIN 300 MG CAPSULE Take 300 mg by mouth three ti* Problem List As Of Date 04/01/2018 Noted Resolved MYALGIA AND MYOSITIS NOS [[id number]] INVALID FOR* SACROILIITIS NEC [M46.1] INVALID FOR* SOMAT DYSFUNC LOWER EXTR [M99.9] INVALID FOR* SOMAT DYSFUNC PELVIC REG [M99.9] INVALID FOR* SOMAT DYSFUNC SACRAL REG [M99.9] INVALID FOR* SOMAT DYSFUNC LUMBAR REG [M99.9] INVALID FOR* SOMAT DYSFUNC THORAC REG [M99.9] INVALID FOR* SOMAT DYSFUNC UPPER EXTR [M99.9] INVALID FOR* SOMAT DYSFUNC CERVIC REG [M99.81] INVALID FOR* MS (multiple sclerosis) [G35] INVALID FOR* Retention of urine, unspecified [R33.9] INVALID FOR* Encounter Status:Closed by MARISELA STOCKTON on 04/01/18 CBC-COMPLETE BLOOD CNT Collected: 03/10/2018 Status: F Source: [place] NO DIFF 6:00 AM [facility] REPOSITORY Order Comment: ROOM 310 TYPE CODE TESTS RESULT OUT OF RANGE REFERENCE UNITS LAB L100.1000 4.4-11.0 K/mm3 Normal WBC 7.5 LAB L100.1200 4.2-5.4 M/mm3 Low RBC 4.08 LAB L100.1300 12.0-15.0 g/dl Normal HGB 12.0 LAB L100.1400 37-47 % Normal HCT 37.6 LAB L100.1500 81-99 fL Normal MCV 92.2 LAB L100.1600 27.0-32.0 pg Normal MCH 29.4 LAB L100.1700 32-36 g/gl Low MCHC 31.9 LAB L100.1810 11.6-14.6 % Normal RDW CV 13.6 LAB L100.1820 35.1-43.9 fl High RDW SD 45.3 LAB L100.1900 150-450 K/mm3 Normal PLT 242 LAB L100.2000 6.2-12.0 fl Normal MPV 10.4 Performed By: #### L100.0500 #### [facility] [address] [place], [place], [id number] BASIC METABOLIC Collected: 03/10/2018 Status: F Source: [place] PROFILE (BMP) 6:00 AM [facility] REPOSITORY Order Comment: ROOM 310 TYPE CODE TESTS RESULT OUT OF RANGE REFERENCE UNITS LAB L501.0100 74-106 mg/dL Normal GLU 84 Result Comment: Please note revised GLUCOSE reference range effective 2017. LAB L501.1000 7-18 mg/dL Normal BUN 13 LAB L501.1100 0.55-1.02 mg/dL Normal CREAT,SERUM 0.66 Result Comment: The validity of the calculated GFR AND GFRAA in patients over 70 years has not been determined. Clinical correlation is essential. LAB L501.1110 >60 mL/min Normal EST GFR 95 Result Comment: Non- GFR Calc LAB L501.1115 >60 mL/min Normal EST GFR - AA 116 Result Comment: GFR Calc LAB L501.1300 10-20 RATIO Normal BUN/CRE 19.6 LAB L501.2200 8.5-10.1 mg/dL CA Normal 8.5 LAB L501.5300 136-145 mmol/L NA Normal 144 LAB L501.5600 3.5-5.1 mmol/L K Normal 3.8 LAB L501.5900 98-107 mmol/L High CL 112 LAB L501.6100 21.0-32.0 mmol/L Normal CO2 28.0 LAB L501.6200 5-15 Low GAP 4 Performed By: #### L500.2500 #### [facility] [address] [place], [address] PROGRESS Observed: 03/04/2018 Status: COMPLETED Source: [place] 12:25 PM [facility] OTHER [facility] REPOSITORY HNO ID: [id number] Author: Marisela Stockton (Pa) Service: (none) Author Type: Physician Reinsurance Clerk Type: Progress Notes Filed: 03/04/2018 12:38 PM Note Text: ESTABLISHED PATIENT OFFICE VISIT HISTORY OF PRESENT ILLNESS: Shin Rojo is a 63 year old female, Ht 160 cm (5' 3) BMI 28.7 kg/m2 with a PMH significant for urinary retention. Pt is facility and s/p tube is being changed there, but pt having increase in sediment and leaking from below. Pt denies fever, chills, hematuria. Will arrange for tube change in office to monitor sediment. . LAB: No results found for: CREAT No results found for: PSA No results found for: UGLUC, UBILI, UKET, SPGR, UHB, UPH, UPROT, UROBIL, NITRITES, UWBC, UCOLAP MEDICATIONS: tiZANidine (ZANAFLEX) 2 mg tablet Take 2 mg by mouth. multivitamin tablet Take 1 tablet by mouth once daily. loratadine (CLARITIN) 10 mg tablet Take 10 mg by mouth once daily. baclofen (LIORESAL) 20 mg tablet Take 20 mg by mouth three times daily. DOCUSATE SODIUM ORAL Take 100 mg by mouth as needed. HYDROcodone-acetaminophen (NORCO) 5-325 mg per tablet Take 1 tablet by mouth every 6 hours as needed for Pain. melatonin 1 mg tab Take 1 mg by mouth at bedtime as needed. magnesium hydroxide (MOM) 400 mg/5 mL suspension Take 30 mL by mouth once daily as needed for Constipation. sodium chloride (OCEAN NASAL) 0.65 % nasal spray Use 1 [place] in the nose every 2 hours as needed. ibuprofen (MOTRIN) 200 mg tablet Take 200 mg by mouth every 8 hours as needed for Pain. lidocaine (LIDODERM) 5 % Apply 1 Patch as directed as needed. senna (SENNA) 8.6 mg tab Take 8.6 mg by mouth once daily as needed (Constipation). gabapentin (NEURONTIN) 300 mg capsule Take 300 mg by mouth three times daily. ezetimibe (ZETIA) 10 mg tablet Take 10 mg by mouth daily at bedtime. aspirin, enteric coated (ASPIRIN, ENTERIC COATED) 81 mg EC tablet Take 81 mg by mouth once daily. omeprazole (PRILOSEC) 20 mg capsule Take 20 mg by mouth once daily. cyanocobalamin (VITAMIN B-12) 1,000 mcg tab Take 1,000 mcg by mouth once daily. CRANBERRY FRUIT EXTRACT (CRANBERRY ORAL) Take 400 mg by mouth twice daily. Ascorbic Acid (VITAMIN C) 1,000 mg tablet Take 1,000 mg by mouth twice daily. menthol (BIOFREEZE, MENTHOL,) 4 % gel Apply 4 % to affected area as needed. ergocalciferol, vitamin D2, (VITAMIN D) 50,000 unit capsule Take 50,000 Units by mouth once each week. Review of Systems Constitutional: Negative for chills, fatigue and fever. Respiratory: Negative for shortness of breath and wheezing. Gastrointestinal: Negative for abdominal pain, constipation, diarrhea and nausea. Genitourinary: See HPI Neurological: Negative for dizziness, light-headedness and headaches. Psychiatric/Behavioral: Negative for behavioral problems. The patient is not nervous/anxious. HISTORIES PAST MEDICAL HISTORY Diagnosis Date - Anemia - Asthma - Atrial fibrillation (HCC) - Constipation - Functional quadriplegia (HCC) - Hyperlipidemia - Insomnia - Lack of coordination - Major depressive disorder - Multiple sclerosis (HCC) - Muscle weakness (generalized) - Neurogenic bladder - Pulmonary disease - Retention, urine History reviewed. No pertinent family history. Social History Substance Use Topics - Smoking status: Never Smoker - Smokeless tobacco: Never Used - Alcohol use No PHYSICAL EXAMINATION GENERAL APPEARANCE: Well appearing, alert, in no acute distress, well-hydrated, well nourished. ASSESSMENT/PLAN: 1. Retention of urine, unspecified - ICD9: 788.20, ICD10: R33.9 s/p tube change in office Marisela Stockton PA-C CNOV Observed: 03/04/2018 Status: COMPLETED Source: [place] 11:45 AM [facility] [place] REPOSITORY Office Visit (AKJOEY) SHIN ROJO ([id number]) 1955 F [facility] Date Time Provider Department 03/04/18 11:45 AM MARISELA STOCKTON (PA) During your visit today, we recorded the following information about you: Blood pressure Weight Height 102/68 73.5 kg 1.6 m Marisela Stockton PA-C 03/04/2018 12:38 PM Signed ESTABLISHED PATIENT OFFICE VISIT HISTORY OF PRESENT ILLNESS: Shin Rojo is a 63 year old female, Ht 160 cm (5' 3) BMI 28.7 kg/m2 with a PMH significant for urinary retention. Pt is facility and s/p tube is being changed there, but pt having increase in sediment and leaking from below. Pt denies fever, chills, hematuria. Will arrange for tube change in office to monitor sediment. . LAB: No results found for: CREAT No results found for: PSA No results found for: UGLUC, UBILI, UKET, SPGR, UHB, UPH, UPROT, UROBIL, NITRITES, UWBC, UCOLAP MEDICATIONS: tiZANidine (ZANAFLEX) 2 mg tablet Take 2 mg by mouth. multivitamin tablet Take 1 tablet by mouth once daily. loratadine (CLARITIN) 10 mg tablet Take 10 mg by mouth once daily. baclofen (LIORESAL) 20 mg tablet Take 20 mg by mouth three times daily. DOCUSATE SODIUM ORAL Take 100 mg by mouth as needed. HYDROcodone-acetaminophen (NORCO) 5-325 mg per tablet Take 1 tablet by mouth every 6 hours as needed for Pain. melatonin 1 mg tab Take 1 mg by mouth at bedtime as needed. magnesium hydroxide (MOM) 400 mg/5 mL suspension Take 30 mL by mouth once daily as needed for Constipation. sodium chloride (OCEAN NASAL) 0.65 % nasal spray Use 1 [place] in the nose every 2 hours as needed. ibuprofen (MOTRIN) 200 mg tablet Take 200 mg by mouth every 8 hours as needed for Pain. lidocaine (LIDODERM) 5 % Apply 1 Patch as directed as needed. senna (SENNA) 8.6 mg tab Take 8.6 mg by mouth once daily as needed (Constipation). gabapentin (NEURONTIN) 300 mg capsule Take 300 mg by mouth three times daily. ezetimibe (ZETIA) 10 mg tablet Take 10 mg by mouth daily at bedtime. aspirin, enteric coated (ASPIRIN, ENTERIC COATED) 81 mg EC tablet Take 81 mg by mouth once daily. omeprazole (PRILOSEC) 20 mg capsule Take 20 mg by mouth once daily. cyanocobalamin (VITAMIN B-12) 1,000 mcg tab Take 1,000 mcg by mouth once daily. CRANBERRY FRUIT EXTRACT (CRANBERRY ORAL) Take 400 mg by mouth twice daily. Ascorbic Acid (VITAMIN C) 1,000 mg tablet Take 1,000 mg by mouth twice daily. menthol (BIOFREEZE, MENTHOL,) 4 % gel Apply 4 % to affected area as needed. ergocalciferol, vitamin D2, (VITAMIN D) 50,000 unit capsule Take 50,000 Units by mouth once each week. Review of Systems Constitutional: Negative for chills, fatigue and fever. Respiratory: Negative for shortness of breath and wheezing. Gastrointestinal: Negative for abdominal pain, constipation, diarrhea and nausea. Genitourinary: See HPI Neurological: Negative for dizziness, light-headedness and headaches. Psychiatric/Behavioral: Negative for behavioral problems. The patient is not nervous/anxious. HISTORIES PAST MEDICAL HISTORY Diagnosis Date - Anemia - Asthma - Atrial fibrillation (HCC) - Constipation - Functional quadriplegia (HCC) - Hyperlipidemia - Insomnia - Lack of coordination - Major depressive disorder - Multiple sclerosis (HCC) - Muscle weakness (generalized) - Neurogenic bladder - Pulmonary disease - Retention, urine History reviewed. No pertinent family history. Social History Substance Use Topics - Smoking status: Never Smoker - Smokeless tobacco: Never Used - Alcohol use No PHYSICAL EXAMINATION GENERAL APPEARANCE: Well appearing, alert, in no acute distress, well-hydrated, well nourished. ASSESSMENT/PLAN: 1. Retention of urine, unspecified - ICD9: 788.20, ICD10: R33.9 s/p tube change in office Marisela Stockton PA-C Referring Provider: CISCO OROZCO [[id number]] Allergies As of Date: 03/04/2018 Noted Allergy Reaction All Cillins [Other] 06/01/2003 CIPROFLOXACIN 07/13/2016 1 - Mental Status Change NADOLOL 09/30/2015 16 - Unknown PENICILLIN V 11/17/2002 PREGABALIN 09/30/2015 16 - Unknown Date Reviewed: 03/04/2018 Reviewed by: Marisela Stockton (Pa) - Fully Assessed Reason for Visit: Neurogenic Bladder [397] Visit Diagnosis:Retention of urine, unspecified [R33.9] Prescriptions as of 03/04/2018 Sig: TIZANIDINE 2 MG TABLET Take 2 mg by mouth. MULTIVITAMIN TABLET Take 1 tablet by mouth once d* LORATADINE 10 MG TABLET Take 10 mg by mouth once bharat* BACLOFEN 20 MG TABLET Take 20 mg by mouth three dave* DOCUSATE SODIUM ORAL Take 100 mg by mouth as neede* HYDROCODONE 5 MG-ACETAMINOPHE* Take 1 tablet by mouth every * MELATONIN 1 MG TABLET Take 1 mg by mouth at bedtime* MAGNESIUM HYDROXIDE 400 MG/5 * Take 30 mL by mouth once bharat* SODIUM CHLORIDE 0.65 % NASAL * Use 1 [place] in the nose every* IBUPROFEN 200 MG TABLET Take 200 mg by mouth every 8 * LIDOCAINE 5 % TOPICAL PATCH Apply 1 Patch as directed as * SENNOSIDES 8.6 MG TABLET Take 8.6 mg by mouth once david* GABAPENTIN 300 MG CAPSULE Take 300 mg by mouth three ti* EZETIMIBE 10 MG TABLET Take 10 mg by mouth daily at * ASPIRIN 81 MG TABLET,DELAYED * Take 81 mg by mouth once bharat* OMEPRAZOLE 20 MG CAPSULE,RAS* Take 20 mg by mouth once bharat* CYANOCOBALAMIN (VIT B-12) 1,0* Take 1,000 mcg by mouth once * CRANBERRY ORAL Take 400 mg by mouth twice da* ASCORBIC ACID (VITAMIN C) 1,0* Take 1,000 mg by mouth twice * MENTHOL 4 % TOPICAL GEL Apply 4 % to affected area as* ERGOCALCIFEROL (VITAMIN D2) 5* Take 50,000 Units by mouth on* Problem List As Of Date 03/04/2018 Noted Resolved MYALGIA AND MYOSITIS NOS [SWK1316] INVALID FOR* SACROILIITIS NEC [M46.1] INVALID FOR* SOMAT DYSFUNC LOWER EXTR [M99.9] INVALID FOR* SOMAT DYSFUNC PELVIC REG [M99.9] INVALID FOR* SOMAT DYSFUNC SACRAL REG [M99.9] INVALID FOR* SOMAT DYSFUNC LUMBAR REG [M99.9] INVALID FOR* SOMAT DYSFUNC THORAC REG [M99.9] INVALID FOR* SOMAT DYSFUNC UPPER EXTR [M99.9] INVALID FOR* SOMAT DYSFUNC CERVIC REG [M99.81] INVALID FOR* MS (multiple sclerosis) [G35] INVALID FOR* Retention of urine, unspecified [R33.9] INVALID FOR* Disposition: Return in about 3 weeks (around 03/25/2018) for catheter change. Follow-up and Disposition History Recorded Encounter Status:Closed by MARISELA STOCKTON on 03/04/18 COMPREHENSIVE METABOLIC Collected: 10/18/2017 Status: F Source: PHU MARCANO 5:35 AM [facility] REPOSITORY TYPE CODE TESTS RESULT OUT OF RANGE REFERENCE UNITS LAB L501.0100 70-110 mg/dL Normal GLU 79 LAB L501.1000 7-18 mg/dL High BUN 21 LAB L501.1100 0.55-1.02 mg/dL Normal 0.56 CREAT,SERUM Result Comment: The validity of the calculated GFR AND GFRAA in patients over 70 years has not been determined. Clinical correlation is essential. LAB L501.1110 >60 mL/min Normal EST GFR 115 Result Comment: Non- GFR Calc LAB L501.1115 >60 mL/min Normal EST GFR - AA 139 Result Comment: GFR Calc LAB L501.1300 10-20 RATIO High BUN/CRE 37.2 LAB L501.1500 6.4-8.2 g/dL Low T PROT 5.9 LAB L501.1800 3.2-5.0 g/dL Normal ALB 3.2 LAB L501.1950 2.2-4.2 g/dL Normal GLOB 2.7 LAB L501.2000 0.9-2.4 RATIO Normal A/G 1.2 LAB L501.2200 8.5-10.1 mg/dL Low CA 8.3 LAB L501.4100 15-37 U/L Normal AST 17 LAB L501.4305 45-117 U/L Normal ALK P 71 LAB L501.4405 13-56 U/L Normal ALT 35 Result Comment: Please note revised ALT reference range effective 2017. LAB L501.4600 0.20-1.00 mg/dL Normal T BILI 0.40 LAB L501.5300 136-145 mmol/L Normal NA 145 LAB L501.5600 3.5-5.1 mmol/L Normal K 4.1 LAB L501.5900 98-107 mmol/L High CL 110 LAB L501.6100 21.0-32.0 mmol/L Normal CO2 26.0 LAB L501.6200 5-15 Normal GAP 9 Performed By: #### L500.4050 #### [facility] [address] [place], [place], [address] CBC-COMPLETE BLOOD CNT Collected: 10/18/2017 Status: F Source: PHU NO DIFF 5:35 AM [facility] REPOSITORY TYPE CODE TESTS RESULT OUT OF RANGE REFERENCE UNITS LAB L100.1000 4.4-11.0 K/mm3 Normal WBC 7.1 LAB L100.1200 4.2-5.4 M/mm3 Low RBC 3.80 LAB L100.1300 12.0-15.0 g/dl Low HGB 11.4 LAB L100.1400 37-47 % Low HCT 35.3 LAB L100.1500 81-99 fL Normal MCV 92.9 LAB L100.1600 27.0-32.0 pg Normal MCH 30.0 LAB L100.1700 32-36 g/gl Normal MCHC 32.3 LAB L100.1810 11.6-14.6 % Normal RDW CV 13.8 LAB L100.1820 35.1-43.9 fl High RDW SD 45.1 LAB L100.1900 150-450 K/mm3 Normal PLT 249 LAB L100.2000 6.2-12.0 fl Normal MPV 10.5 Performed By: #### L100.0500 #### [facility] [address] [place], [place], [address] ALLERGIES ALLERGIES DATE TYPE / CODE NAME / CODE REACTION SEVERITY SOURCE DRUG CIPROFLOXACIN Mental Chg [place] [facility] INGREDI/[id number]( Clinic Other SNOMED CT) [facility] DRUG NADOLOL UNKNOWN [place] [facility] INGREDI/[id number]( Clinic Other SNOMED CT) [facility] DRUG PREGABALIN UNKNOWN [place] [facility] INGREDI/[id number]( Clinic Other SNOMED CT) [facility] Miscellaneous OTHER [place] 3 Allergy/[id number]( Clinic Other SNOMED CT) [facility] DRUG PENICILLIN V [place] [facility] INGREDI/095434052( Clinic Other SNOMED CT) [facility] NG/[id number](SNOME OTHER [facility] D [facility]) [facility] Repository NG/[id number](SNOME CIPROFLOXACIN [facility] D [facility]) [facility] System Repository NG/[id number](SNOME NADOLOL [facility] D [facility]) [facility] System Repository NG/[id number](SNOME PENICILLIN V [facility] D [facility]) [facility] System Repository NG/[id number](SNOME PREGABALIN [facility] D CT) Health System Repository ENCOUNTERS ENCOUNTERS ADMIT/DISCHARGE ACCOUNT NUMBER ADMITTING ENCOUNTER LOCATION SOURCE CLASS 10/06/2018 [id number] Emergency [facility] [place] [address] EDRoom: 2A System 444Bed: Repository [id number] 10/06/2018 [id number] Ambulatory [facility] ding:RENETTA.ACW Repository 300 09/08/2018 [id number] Ambulatory [facility] ding:OLS.ACW Repository 300 04/07/2018 [id number] Ambulatory [facility] Repository 04/07/2018/04/07/20 [id number] Ambulatory [address] MEDICAL Repository CENTERBuildi ng:AKLB 04/07/2018/04/07/20 [id number] Ambulatory [address] Other [place] 04/07/2018/04/07/20 [id number] Ambulatory [address] MEDICAL Repository CENTERBuildi ng:AKUF 04/01/2018/04/01/20 [id number] Ambulatory [address] Repository 04/01/2018/04/01/20 [id number] Ambulatory [address] MEDICAL Repository CENTERBuildi ng:AKUF 03/28/2018 [id number] Ambulatory [facility] MEDICAL Repository CENTERBuildi ng:AKUF 03/10/2018 [id number] Ambulatory [facility] ding:OLS.ACW Repository 300 03/04/2018/03/04/20 [id number] Ambulatory [address] Repository 03/04/2018/03/04/20 [id number] Ambulatory [address] MEDICAL Repository CENTERBuildi ng:AKUF 10/18/2017 [id number] [facility] ding:OLS.ACW Repository 300 PAYERS PAYERS ENCOUNTER GUARANTOR PAYER SUBSCRIBER SOURCE 10/06/2018 Shin Banda Primary [facility] [employer] CanforaDOB: Insurance:United CanforaDOB: System [facility] avera [id number] Repository [facility] Number: Effective ([facility] Of Date: Ever)[place] [address]Fgb: () 10/06/2018 Secondary [facility] [employer] Aras Insurance:United CanforaDOB: System [facility] [id number] Repository Number: Effective Date: 10/06/2018 Shin Rochea147 Primary NOT GIVENUNK [place] Insurance:SELF PAY [facility], Number: Effective Repository [place] [address]Tfv: [phone]) Date:2018-10-06 [phone] (HP) 09/08/2018 Shin Rochea147 Primary Shin [place] Insurance:MEDICARE CanforaDOB: [facility] OF PART A [facility] [id number], Number: Repository [place] [address]Dqa: [phone] [id number] [phone] (HP) Date:2018-09-08 09/08/2018 Secondary Shin Phu Insurance:MEDICAIDPol CanforaDOB: [facility] Number: [id number] Hospital [id number] Repository Date:2018-09-08 09/08/2018 Tertiary NOT GIVENUNK [place] Insurance:SELF PAY [facility] Number: Effective Repository Date:2018-09-08 04/07/2018 SHIN CANFORADOB: Primary SHIN [facility] Insurance:MEDICARE A CANFORADOB: Health System [place] AND [facility] Number: [id number] Repository [place], [place] [id number]: ([phone]) Date: () 04/07/2018 Secondary SHIN [facility] Insurance:[facility] CANFORADOB: Health System [facility] [id number] Repository Number: [id number] Date: 04/07/2018 SHIN CANFORADOB: Primary SHIN [facility] [id number] Insurance:MEDICARE A CANFORADOB: Health System [place] AND [facility] Number: [id number] Repository [place], [place] [id number]: ([phone]) Date: [phone] (HP) 04/07/2018 Secondary SHIN [facility] Insurance:[facility] CANFORADOB: Health System [facility] [id number] Repository Number: [id number] Date: 04/01/2018 SHIN CANFORADOB: Primary SHIN [facility] Insurance:MEDICARE A CANFORADOB: [facility] Number: [id number] Repository [place], [place] [id number]: ([phone]) Date: [phone] (HP) 04/01/2018 Secondary SHIN [facility] Insurance:[facility] CANFORADOB: [facility] System [facility]ICAID [facility] [id number] Repository Number: [id number] Date: 03/28/2018 SHIN CANFORADOB: Primary SHIN [place] Insurance:MEDICARE A CANFORADOB: [facility] Number: [id number] Repository [place], [place] [id number]: (330) Date: [phone] () 03/28/2018 Secondary SHIN [facility] Insurance:[facility] CANFORADOB: [facility] System MEDICAID [facility] [id number] Repository Number: [id number] Date: 03/10/2018 Shin [id number] Primary [place] Insurance:MEDICARE CanforaDOB: [facility] OF PART A [facility] [id number] Developmental Center, Number: [place]ository [place] [phone]: [phone]) [id number] [phone] (HP) Date:2018-03-10 03/10/2018 Secondary [place] Insurance:MEDICAIDPol CanforaDOB: [facility] Number: [id number] Hospital [id number] Repository Date:2018-03-10 03/10/2018 Tertiary [facility] [place] Insurance:SELF PAY [facility] Number: Effective Repository Date:2018-03-10 03/04/2018 SHIN CANFORADOB: Primary SHIN [place] [facility] Insurance:MEDICARE A CANFORADOB: [facility] Number: [id number] Repository [place], [place] [id number]: ([phone]) Date: [phone] () 03/04/2018 Secondary SHIN [facility] Insurance:MYCARE [facility] CANFORADOB: Health System [facility]ICAID [facility] [id number] Repository Number: [id number] Date: 10/18/2017 Shin [id number] Primary [place] Insurance:MEDICARE CanforaDOB: [facility] OF [facility] A [facility] [id number] Developmental Center, Number: [place] [phone]: [phone] [id number] [phone] () Date:2017-10-18 10/18/2017 Secondary [place] Insurance:MEDICAIDPol CanforaDOB: Community ic Number: [id number] Hospital [id number] Repository Date:2017-10-18 10/18/2017 Tertiary NOT GIVENSHITAL [place] Insurance:SELF PAY [facility] Number: Effective Repository Date:2017-10-18
== END ==
LOC: OLS.ACW300 20:05
PROVIDERS: Visit Provider Family Medicine
DX: G35 Multiple sclerosis (principal); J44.9 Chronic obstructive pulmonary disease, unspecified; I48.91 Unspecified atrial fibrillation; E78.5 Hyperlipidemia, unspecified; F33.1 Major depressive disorder, recurrent, moderate; G47.00 Insomnia, unspecified
CPT/HCPCS: 36415; 80048; 81002; 84145; 85027; 87086; 87088

== ENCOUNTER → 2019-01-05 05:00 | Outpatient (REF) | payer MEDICARE, MEDICAID, SELFPAY ==
[2019-01-05 09:34] LABS: Hemoglobin 10.9 g/dl (12.0-15.0); Mean Corp Hgb Conc 32.1 g/gl (32-36); Mean Corpuscular Hgb 29.4 pg (27.0-32.0); Mean Corpuscular Volume 91.6 fL (81-99); Mean Platelet Vol. 10.3 fl (6.2-12.0); Platelet Count 245 K/mm3 (150-450); RBC Distribution Width CV 14.4 % (11.6-14.6); RBC Distribution Width SD 48.5 fl (35.1-43.9); Red Blood Count 3.71 M/mm3 (4.2-5.4); White Blood Count 7.2 K/mm3 (4.4-11.0)
[2019-01-05 09:51] LABS: Scan Indicated on CBC? Y/N NO
[2019-01-05 10:03] LABS: AST(SGOT) 19 U/L (15-37); Alanine Aminotransfer ALT/SGPT 31 U/L (13-56); Albumin, Serum 3.2 g/dL (3.2-5.0); Alkaline Phosphatase 81 U/L (45-117); Anion Gap 6 (5-15); BUN 10 mg/dL (7-18); BUN/Creat Ratio 16.2 RATIO (10-20); Calcium,Total 8.5 mg/dL (8.5-10.1); Chloride 113 mmol/L (98-107); Cholesterol 145 mg/dL (200); Creatinine, Serum 0.62 mg/dL (0.55-1.02); EST Glomerular Filtration Rate 104 mL/min (>60); Est Glom Filt Rate - Afr Amer 125 mL/min (>60); Globulin 3.2 g/dL (2.2-4.2); Glucose 91 mg/dL (74-106); High Density Lipoprotein 30 mg/dL; Potassium 3.7 mmol/L (3.5-5.1); Protein, Total 6.4 g/dL (6.4-8.2); Sodium Level 145 mmol/L (136-145); Thyroid Stim Hormone (TSH) 1.52 uIU/mL (0.358-3.74); Triglycerides 296 mg/dL; Very Low Density Lipoprotein 59 mg/dL (5-40)
[2019-01-05 10:34] LABS: Vitamin D,25 Hydroxy 85.4 ng/mL (29.95-100.01)
== END ==
LOC: OLS.ACW300 05:00
PROVIDERS: Visit Provider Family Medicine
DX: G35 Multiple sclerosis (principal); J44.9 Chronic obstructive pulmonary disease, unspecified; I48.91 Unspecified atrial fibrillation; E78.5 Hyperlipidemia, unspecified; F33.1 Major depressive disorder, recurrent, moderate; G47.00 Insomnia, unspecified
CPT/HCPCS: 36415; 80053; 80061; 82306; 83735; 84443; 85027

== ENCOUNTER → 2019-03-09 | Outpatient (REF) | payer MEDICARE, MEDICAID, SELFPAY ==
[2019-03-09 08:45] LABS: Hematocrit 35.5 % (37-47); Hemoglobin 11.4 g/dl (12.0-15.0); Mean Corp Hgb Conc 32.1 g/gl (32-36); Mean Corpuscular Hgb 29.5 pg (27.0-32.0); Mean Corpuscular Volume 91.7 fL (81-99); Mean Platelet Vol. 10.2 fl (6.2-12.0); Platelet Count 241 K/mm3 (150-450); RBC Distribution Width CV 14.3 % (11.6-14.6); Red Blood Count 3.87 M/mm3 (4.2-5.4); White Blood Count 7.4 K/mm3 (4.4-11.0)
[2019-03-09 08:46] LABS: Scan Indicated on CBC? Y/N NO
[2019-03-09 09:04] LABS: Anion Gap 5 (5-15); BUN 15 mg/dL (7-18); BUN/Creat Ratio 23.1 RATIO (10-20); Calcium,Total 8.4 mg/dL (8.5-10.1); Chloride 114 mmol/L (98-107); Creatinine, Serum 0.65 mg/dL (0.55-1.02); EST Glomerular Filtration Rate 98 mL/min (>60); Est Glom Filt Rate - Afr Amer 118 mL/min (>60); Glucose 102 mg/dL (74-106); Potassium 3.7 mmol/L (3.5-5.1); Sodium Level 144 mmol/L (136-145)
== END | disposition home or self-care (01) ==
LOC: OLS.ACW300 05:00
PROVIDERS: Visit Provider Family Medicine
DX: G35 Multiple sclerosis (principal); J44.9 Chronic obstructive pulmonary disease, unspecified; N31.9 Neuromuscular dysfunction of bladder, unspecified; R53.2 Functional quadriplegia; R27.9 Unspecified lack of coordination; M62.81 Muscle weakness (generalized)
CPT/HCPCS: 36415; 80048; 85027

== ENCOUNTER → 2019-09-07 05:00 | Outpatient (REF) | payer MEDICARE, SELFPAY ==
[2019-09-07 09:07] LABS: Hematocrit 34.4 % (37-47); Mean Corpuscular Hgb 29.8 pg (27.0-32.0); Mean Corpuscular Volume 93.2 fL (81-99); Mean Platelet Vol. 10.2 fl (6.2-12.0); Platelet Count 242 K/mm3 (150-450); RBC Distribution Width CV 13.2 % (11.6-14.6); RBC Distribution Width SD 44.5 fl (35.1-43.9); Red Blood Count 3.69 M/mm3 (4.2-5.4); White Blood Count 7.1 K/mm3 (4.4-11.0)
[2019-09-07 09:13] LABS: Anion Gap 4 (5-15); BUN 14 mg/dL (7-18); BUN/Creat Ratio 24.1 RATIO (10-20); Calcium,Total 8.3 mg/dL (8.5-10.1); Chloride 114 mmol/L (98-107); Creatinine, Serum 0.58 mg/dL (0.55-1.02); EST Glomerular Filtration Rate 111 mL/min (>60); Est Glom Filt Rate - Afr Amer 134 mL/min (>60); Glucose 98 mg/dL (74-106); Potassium 3.8 mmol/L (3.5-5.1); Sodium Level 145 mmol/L (136-145)
== END ==
LOC: OLS.ACW300 05:00
PROVIDERS: Visit Provider Family Medicine
DX: G35 Multiple sclerosis (principal); J44.9 Chronic obstructive pulmonary disease, unspecified; N31.9 Neuromuscular dysfunction of bladder, unspecified; R53.2 Functional quadriplegia; R27.9 Unspecified lack of coordination; M62.81 Muscle weakness (generalized)
CPT/HCPCS: 36415; 80048; 85027

== ENCOUNTER → 2021-01-01 05:00 | Outpatient (REF) | payer MEDICARE, MEDICAID, SELFPAY ==
[2021-01-01 07:51] LABS: Erythrocyte Sedimentation Rate 21 mm/hr (0-30)
[2021-01-01 07:52] LABS: Absolute Lymphocyte Count 3.06 X10^3/uL (0.83-4.51); Absolute Neutrophil Count 3.5 X10^3/uL (2.0-7.7); Basophil# 0.04 X10^3/uL; Basophil% 0.5 % (0-1); Eosinophil# 0.19 X10^3/uL; Eosinophils% 2.5 % (0-5); Hemoglobin 11.8 g/dL (12.0-15.0); Lymphocyte # 3.06 X10^3/ul (4.0); Lymphocyte % 40.6 % (19-41); Mean Corp Hgb Conc 31.1 g/dL (32-36); Mean Corpuscular Hgb 29.6 pg (27.0-32.0); Mean Corpuscular Volume 95.2 fL (81-99); Mean Platelet Vol. 10.4 fl (6.2-12.0); Monocyte# 0.75 X10^3/uL; Monocyte% 9.9 % (0-10); NRBC Flagged by Analyzer 0 % (0-5); Neutrophil # 3.48 X10^3/uL (2.7-7.7); Neutrophil % 46.2 % (47-70); Platelet Count 256 K/mm3 (150-450); RBC Distribution Width SD 49.4 fl (35.1-43.9); Red Blood Count 3.99 M/mm3 (4.2-5.4); White Blood Count 7.5 K/mm3 (4.4-11.0)
[2021-01-01 08:13] LABS: Vitamin B12 1324 pg/mL (211-911)
[2021-01-01 08:19] LABS: ALB/GLOB Ratio 0.9 RATIO (0.9-2.4); AST(SGOT) 21 U/L (15-37); Alanine Aminotransfer ALT/SGPT 36 U/L (13-56); Albumin, Serum 3.1 g/dL (3.2-5.0); Alkaline Phosphatase 101 U/L (45-117); Anion Gap 4 (5-15); BUN 13 mg/dL (7-18); BUN/Creat Ratio 20.7 RATIO (10-20); CPK Total, Creatine Kinase 58 U/L (26-192); Calcium,Total 8.4 mg/dL (8.5-10.1); Chloride 112 mmol/L (98-107); Cholesterol 136 mg/dL (200); Creatinine, Serum 0.63 mg/dL (0.55-1.02); EST Glomerular Filtration Rate 101 mL/min (>60); Est Glom Filt Rate - Afr Amer 122 mL/min (>60); Globulin 3.3 g/dL (2.2-4.2); Glucose 92 mg/dL (74-106); High Density Lipoprotein 31 mg/dL; Magnesium 2.3 mg/dL (1.6-2.6); Potassium 3.7 mmol/L (3.5-5.1); Protein, Total 6.4 g/dL (6.4-8.2); Sodium Level 143 mmol/L (136-145); Thyroid Stim Hormone (TSH) 2.99 uIU/mL (0.358-3.74); Triglycerides 251 mg/dL; Very Low Density Lipoprotein 50 mg/dL (5-40)
== END ==
LOC: OLS.ACH 05:00
PROVIDERS: PCP Family Medicine; Visit Provider Family Medicine
DX: I10 Essential (primary) hypertension (principal); E78.49 Other hyperlipidemia; G35 Multiple sclerosis
CPT/HCPCS: 36415; 80053; 80061; 82550; 82607; 83735; 84443; 85025; 85652

== ENCOUNTER → 2021-01-21 12:29 | Outpatient (CLI) | payer MEDICARE, MEDICAID, SELFPAY ==
--- NOTE | 2021-01-21 13:00 | MRI_ITS ---
STUDY: MRI BRAIN WITH AND WITHOUT CONTRAST REASON FOR EXAM: Female, 65 years old. MS, new doctor. No prior MRI for many years TECHNIQUE: Standardized multiplanar fat and water weighted pulse sequences were obtained. 15ml Dotarem via IV was administered for the contrast portion of the examination. COMPARISON: None. FINDINGS: There is mild cerebral atrophy with widening of the extra-axial spaces and ventricular dilatation. There are a limited number of small white matter hyperintensities, distributed throughout the deep white matter tracts of the cerebral hemispheres, consistent with mild chronic white matter ischemic changes. There is no evidence for recent intracranial ischemia or other cause of cytotoxic edema on diffusion weighted imaging (DWI). Normal T2* images of the brain without demonstrated susceptibility artifact. There is no demonstrated hemosiderin stain. Normal bilateral basal ganglia. 1.5 cm multiseptated cystic area within the left thalamus most consistent with a chronic lacunar infarct. There is no extra-axial fluid accumulation. Normal flow voids within the major intracranial circulation suggesting patency by spin echo criteria. Normal venous enhancement. There is no enhancing intra-axial or extra-axial abnormality. Normal sella turcica, pituitary gland, infundibular stalk, optic chiasm and hypothalamus. Normal tectal plate and pineal gland. Normal midbrain, abhay and medulla. Normal cerebellum. Normal basal cisterns. Normal bilateral temporal bones. Normal bilateral internal auditory canals. No demonstrated orbital abnormality, within the constraints of a routine brain study. Normal visualized paranasal sinuses. Normal calvarium and skull base. Normal visualized soft tissue structures. Normal visualized upper cervical spine. MRI/Brain W/WO Contrast IMPRESSION: Involutional changes of the brain, as described above. Electronically Signed: Reza Patterson MD at 16:50 EDT Tel , Service support ,
== END ==
PROVIDERS: PCP Family Medicine; Referring Provider Family Medicine; Visit Provider Family Medicine
DX: G35 Multiple sclerosis (principal)
CPT/HCPCS: 70553; A9575

== ENCOUNTER → 2021-02-14 05:00 | Outpatient (REF) | payer MEDICARE, MEDICAID, SELFPAY ==
[2021-02-14 07:51] LABS: Absolute Lymphocyte Count 2.47 X10^3/uL (0.83-4.51); Absolute Neutrophil Count 3.2 X10^3/uL (2.0-7.7); Basophil# 0.04 X10^3/uL; Basophil% 0.6 % (0-1); Eosinophil# 0.26 X10^3/uL; Eosinophils% 3.9 % (0-5); Hematocrit 36.2 % (37-47); Hemoglobin 11.1 g/dL (12.0-15.0); Lymphocyte # 2.47 X10^3/ul (0.83-4.51); Lymphocyte % 37.2 % (19-41); Mean Corp Hgb Conc 30.7 g/dL (32-36); Mean Corpuscular Hgb 29.1 pg (27.0-32.0); Mean Corpuscular Volume 94.8 fL (81-99); Mean Platelet Vol. 10.3 fl (6.2-12.0); Monocyte# 0.65 X10^3/uL; Monocyte% 9.8 % (0-10); NRBC Flagged by Analyzer 0 % (0-5); Neutrophil # 3.19 X10^3/uL (2.7-7.7); Platelet Count 239 K/mm3 (150-450); RBC Distribution Width CV 14.3 % (11.6-14.6); RBC Distribution Width SD 49.6 fl (35.1-43.9); Red Blood Count 3.82 M/mm3 (4.2-5.4); White Blood Count 6.6 K/mm3 (4.4-11.0)
[2021-02-14 08:21] LABS: Cholesterol 142 mg/dL (200); High Density Lipoprotein 33 mg/dL; Triglycerides 248 mg/dL; Very Low Density Lipoprotein 50 mg/dL (5-40)
[2021-02-14 08:53] LABS: Vitamin D,25 Hydroxy 50.7 ng/mL
== END ==
LOC: OLS.ACH 05:00
PROVIDERS: PCP Family Medicine; Visit Provider Family Medicine
DX: E78.49 Other hyperlipidemia (principal); K21.9 Gastro-esophageal reflux disease without esophagitis; G35 Multiple sclerosis; R53.82 Chronic fatigue, unspecified; E55.9 Vitamin D deficiency, unspecified
CPT/HCPCS: 36415; 80061; 82306; 85025

== ENCOUNTER → 2021-03-10 01:00 | Outpatient (REF) | payer MEDICARE, MEDICAID, SELFPAY ==
[2021-03-10 07:17] LABS: Mucous, Urine 0 SEEN /hpf (<or=2+)
[2021-03-10 07:43] LABS: Color, Urine Yellow (Yellow); Glucose, Dipstick Normal (Normal); Ketone-Dipstick 5 mg/dl (Negative); Leukocyte Esterase-Dipstick 500 /ul (Negative); Nitrite-Dipstick Negative (Negative); Occult Blood-Urine 10 /ul (Negative); Protein-Dipstick 100 mg/dl (Negative); Urine Bilirubin Dipstick Negative (Negative); Urine Clarity Cloudy (Clear); Urine Urobilinogen 1 mg/dl (Normal)
[2021-03-10 08:00] LABS: Red Blood Cells-Urine 0-5 SEEN /hpf (0-5); Squamous Epithelial Cells - UA 0-5 SEEN /hpf (5-10); White Blood Cells 25-50 SEEN /hpf (0-5)
[2021-03-10 08:01] LABS: Bacteria 3+ /hpf (None Seen); Calcium Oxalate Crystals Ur 1+ /hpf (<or=2+)
[2021-03-25 17:45] VITALS: BMI 29.9
== END ==
LOC: OLS.ACH 01:00
PROVIDERS: PCP Family Medicine; Visit Provider Family Medicine
DX: Z43.6 Encounter for attention to other artificial openings of urinary tract (principal)
CPT/HCPCS: 81001; 87077; 87086; 87088; 87186

== ENCOUNTER 2021-03-25 17:44 | Observation (INO) | payer MEDICARE, MEDICAID, SELFPAY ==
[2021-03-25] VITALS (9 sets, daily range): BP systolic 113–142; BP diastolic 66–77; PULSE 57–79; RESP 16–17; TEMP 36.2–36.8; O2SAT 94–98; BMI 29.9
--- NOTE | 2021-03-25 | CALC_PTH ---
PATIENT: FRANCIE MOLINA LOC: MS3 U#:[id number] AGE/SX: 66/F ROOM: MD315 RE03/25/[address]: Dr. Vielka Durbin MD : 1955 BED: 1 DIS: 03/26/2021 SPEC #: [id number] RECD: 03/26/21 07:21 STATUS: NOAH VO #: [id number] ECHO: 03/25/21 00:[address]: Vielka Durbin DEPT: SURGICAL PATHOLOGY RECD BY: Ra Hartley ENTERED: 03/26/21 09:04 SP TYPE: Calculi OTHR DR: Dr. Portillo Trujillo DO Tissues: CALCULI Procedures: Surgery Specimen Level I HEADER OPERATION: Cystoscopy, bladder stone removal, laser lithotripsy PRE-OP DIAGNOSIS: Neurogenic bladder, urinary retention, urinary tract infection TISSUE SUBMITTED: Bladder stones GROSS DIAGNOSIS Urinary bladder stones, removal: Unremarkable calculi (gross diagnosis only). AM:hong 03/27/2021 COMMENT If chemical analysis is requested on this specimen, please notify the laboratory. GROSS DESCRIPTION Received without fixative labeled with the patient's name and designated bladder stones. The specimen consists multiple irregular fragments of chalky, white stones ranging in size from <0.1 to 0.7 cm and in aggregate measuring 6 x 6 x 0.5 cm. The entire specimen is saved if stone analysis is requested. / AM:hong 03/26/21 CPT: 43163
--- NOTE | 2021-03-25 11:31 | EKG12_ITS ---
Test Reason : PREOP Blood Pressure : / mmHG Vent. Rate : 069 BPM Atrial Rate : 069 BPM P-R Int : 174 ms QRS Dur : 094 ms QT Int : 448 ms P-R-T Axes : 073 -40 029 degrees QTc Int : 480 ms Normal sinus rhythm Left axis deviation Abnormal ECG No previous ECGs available Confirmed by LUCIO HALL, DEWEY ([id number]), book editor GLENN BRAN ([id number]) on 04/01/2021 8:45:38 AM Referred By: Vielka Durbin Confirmed By:DEWEY VALDES MD
[2021-03-25] MEDS: Lactated Ringers 1,000 ML 100 ML IV (11:33)
[2021-03-25] MEDS: Cefazolin 2 GM in 0.9% Normal Saline 100 ML IV (12:27)
--- NOTE | 2021-03-25 16:42 | PCM.OPRPT ---
Problems Associated Problem List Diagnoses (1) Neurogenic bladder: (2) Urinary retention: (3) Urinary tract infection: Report of Operation Date of Procedure: 03/25/21 Pre-Operative Diagnosis: Neurogenic bladder, urinary retention, Urinary tract infections Post-Operative Diagnosis: Same, multiple bladder stones Surgery/Procedure Performed:: Cystoscopy, laser lithotripsy, bladder stone removal, suprapubic tube change Surgeon: Vielka Durbin Type of Anesthesia: MAC Specimen's removed: Bladder stone fragments Description of Procedure: The patient is a 66-year-old female with MS, nonmobile with neurogenic bladder, urinary retention with longstanding suprapubic tube and urinary tract infections. She presents for cystoscopic evaluation and suprapubic tube change. She is 5 days status post IV antibiotic administration for resistant urinary tract infection treated by infectious disease. Informed consent was obtained. The patient was taken to the operating room and placed on the operating room table. Anesthesia monitored the head, neck, airway, IV access and vital signs throughout the case. Once anesthesia was appropriately administered the patient was placed into dorsal lithotomy position was prepped and draped in usual sterile fashion. The cystoscope was inserted through the urethra under direct visualization into the urinary bladder. Immediately there were 5 large round stones each approximately 1.5 cm or more in size. At this time the 1000 ?m laser fiber was used to blast the stones into small fragments which were irrigated and flushed from the urinary bladder. Some of the pieces were removed with graspers at the end. The resectoscope was used for irrigation with Sergey syringe. All stone fragments were removed. There were a few small areas of erythema to the bladder mucosa but no significant injury to the bladder was made. At this time the suprapubic catheter was removed by emptying 30 cc from the balloon and a new 16 Trin[place] 5 cc catheter was inserted through the suprapubic site, and 10 cc was placed in the balloon and the catheter was placed to straight drain. A 22 Trinidadian urethral Hopkins was placed to straight drain as well with 10 cc in the balloon. The patient was then awakened and taken to the recovery room in good condition. There were no complications during this procedure. She will be watched overnight. Grafts/Implants Used: None Complications None Admit VTE Documentation VTE Present on Admission: Yes VTE Mechan Device Prophylaxis: SCD's VTE Pharm Prophylaxis ordered?: Yes
[2021-03-25] MEDS: Cefazolin 1 GM/50 ML BAG IV (18:37)
[2021-03-25] MEDS: Enoxaparin 40 MG/0.4 ML Syringe SC (18:41)
[2021-03-25] MEDS: Aspirin E.C. 81 MG Tablet PO (18:42)
[2021-03-25] MEDS: Dextrose 5%-Lactated Ringers 1,000 ML 100 ML IV (20:13)
[2021-03-25] MEDS: Baclofen 10 MG Tablet 20 MG PO (20:37)
[2021-03-25] MEDS: Famotidine 20 MG Tablet PO (20:38)
[2021-03-25] MEDS: Atorvastatin Calcium 40 MG Tablet PO (20:38)
[2021-03-26 01:38] VITALS: BP 118/60; PULSE 83; RESP 15; TEMP 36.5; O2SAT 95
[2021-03-26 05:41] VITALS: BP 105/60; PULSE 79; RESP 17; TEMP 36.4; O2SAT 96
[2021-03-26] MEDS: Dextrose 5%-Lactated Ringers 1,000 ML 100 ML IV (05:47)
[2021-03-26] MEDS: Cefazolin 1 GM/50 ML BAG IV ×2 (05:48→12:57)
[2021-03-26] MEDS: Zinc Oxide 30gm Tube 1 APPLIC TOPICAL ×2 (05:51→16:19)
[2021-03-26] MEDS: Baclofen 10 MG Tablet 20 MG PO ×2 (05:52→12:58)
[2021-03-26 06:09] LABS: Absolute Lymphocyte Count 1.99 X10^3/uL (0.83-4.51); Absolute Neutrophil Count 6.2 X10^3/uL (2.0-7.7); Basophil# 0.04 X10^3/uL; Basophil% 0.4 % (0-1); Eosinophil# 0.11 X10^3/uL; Eosinophils% 1.2 % (0-5); Hematocrit 32.7 % (37-47); Hemoglobin 10.4 g/dL (12.0-15.0); Lymphocyte # 1.99 X10^3/ul (0.83-4.51); Lymphocyte % 21.6 % (19-41); Mean Corp Hgb Conc 31.8 g/dL (32-36); Mean Corpuscular Hgb 29.7 pg (27.0-32.0); Mean Corpuscular Volume 93.4 fL (81-99); Mean Platelet Vol. 10.4 fl (6.2-12.0); Monocyte# 0.85 X10^3/uL; Monocyte% 9.2 % (0-10); NRBC Flagged by Analyzer 0 % (0-5); Neutrophil % 67.3 % (47-70); Platelet Count 209 K/mm3 (150-450); RBC Distribution Width CV 14.1 % (11.6-14.6); RBC Distribution Width SD 47.4 fl (35.1-43.9); White Blood Count 9.2 K/mm3 (4.4-11.0)
[2021-03-26 06:36] LABS: Anion Gap 5 (5-15); BUN 10 mg/dL (7-18); BUN/Creat Ratio 19.7 RATIO (10-20); Calcium,Total 8.1 mg/dL (8.5-10.1); Chloride 110 mmol/L (98-107); Creatinine, Serum 0.51 mg/dL (0.55-1.02); EST Glomerular Filtration Rate 129 mL/min (>60); Est Glom Filt Rate - Afr Amer 156 mL/min (>60); Estimated Creatinine Clearance 45.78 ml/min; Glucose 100 mg/dL (74-106); Potassium 3.7 mmol/L (3.5-5.1); Sodium Level 144 mmol/L (136-145)
[2021-03-26 08:31] VITALS: BP 98/56; PULSE 83; RESP 18; TEMP 36.9; O2SAT 94
[2021-03-26] MEDS: Enoxaparin 40 MG/0.4 ML Syringe SC (08:49)
[2021-03-26] MEDS: Aspirin E.C. 81 MG Tablet PO (08:49)
[2021-03-26] MEDS: Loratadine 10 MG Tablet PO (08:49)
[2021-03-26] MEDS: Gabapentin 400 MG Capsule PO ×2 (08:49→16:18)
--- NOTE | 2021-03-26 09:39 | CASEMGMT ---
Social Work Note Pt is listed as being from [facility]. DEANNA placed a call to [facility] and spoke with Doreen in admissions. 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 Pt will need COVID test on day of discharge. DEANNA in to speak with pt. DEANNA introduced self and role at [facility]. Pt confirms she came from [facility] and plans to return at discharge. Patient was provided a list of SNF providers including quality and resource use data and consistent with the patient?s preferred geographic region, medical needs, and insurance network. Pt's preferred provider is to return to [facility] at discharge. Plan: Return to [facility] when medically cleared Brynn Mae ELECTRIC TOOL REPAIRER, STOCK GRADER
--- NOTE | 2021-03-26 12:13 | PCM.PROGNOTE ---
Subjective Subjective Sitting in bed. No complaints. No pain. No issues overnight. Ate breakfast this morning. Objective Data Objective Data Vital Signs: Vital Signs Temp Pulse Resp BP Pulse Ox 98.5 F 83 18 98/56 L 94 03/26/21 08:31 03/26/21 08:31 03/26/21 08:31 03/26/21 08:31 03/26/21 08:31 Oxygen Delivery Method Room Air Weight: 76.657 kg Body Mass Index (BMI) 29.9 Intake & Output: Intake and Output for Last 24 Hours 03/24/21 03/25/21 03/26/21 23:59 23:59 23:59 Intake Total 1035 / 1435 1608.34 / 1608.34 Output Total 300 / 600 850 / 850 Balance 735 / 835 758.34 / 758.34 Lab / Micro Data Result Diagrams: 03/26/21 05:34 03/26/21 05:34 Labs: Laboratory Results - last 24 hr 03/26/21 03/26/21 05:34 05:34 WBC 9.2 RBC 3.50 L Hgb 10.4 L Hct 32.7 L MCV 93.4 MCH 29.7 MCHC 31.8 L RDW Std Deviation 47.4 H RDW Coeff of Joshua 14.1 Plt Count 209 MPV 10.4 Immature Gran % (Auto) 0.300 Neut % (Auto) 67.3 Lymph % (Auto) 21.6 [place] % (Auto) 9.2 Eos % (Auto) 1.2 Baso % (Auto) 0.4 Absolute Neuts (auto) 6.2 Absolute Lymphs (auto) 1.99 Nucleated RBC % 0 Sodium 144 Potassium 3.7 Chloride 110 H Carbon Dioxide 29.0 Anion Gap 5 BUN 10 Creatinine 0.51 L Estim Creat Clear Calc 45.78 Est GFR (MDRD) Af Amer 156 Est GFR (MDRD) Non-Af 129 BUN/Creatinine Ratio 19.7 Glucose 100 Calcium 8.1 L Physical Exam Const alert, oriented x3 and no apparent distress Resp normal respiratory effort, normal air movement, no retractions and no use of accessory muscles GI soft to palpation and non-tender Narrative: suprapubic tube draining clear yellow Skin no rashes or lesions noted Neuro oriented x3 Assessment & Plan Assessment/Plan (1) Urinary tract infection: PLAN: home today with SPT to straight drain. no further antibiotics needed follow up in the office continue routine SPT care (2) Urinary retention: (3) Neurogenic bladder:
--- NOTE | 2021-03-26 12:15 | PCM.DC ---
Discharge Instructions Diet Discharge Diet: No restrictions Activity Discharge Activity: Return to Normal Activity Dressing / Incision Call your doctor if you observe: Fever of 101 or Higher, Inability to have a bowel movement and Uncontrolled pain Catheter: - (suprapubic catheter to straight drain) Follow Up Care Please Follow Up With: Vielka Durbin MD When: call office for appt Test Results: Test results from this visit will be discussed in further detail at your follow-up appointment, if applicable. Discharge Plan Admission Admit Date/Time: 03/25/21 17:44 Attending Provider: Vielka Durbin Primary Care Provider: Portillo Trujillo Discharge Orders/Prescriptions Prescriptions: Continued Aspercreme (lidocaine) 4 % transdermal PRN PRN (Reason: Pain) RF: 0 atorvastatin 40 mg Tablet 40 mg PO QHS RF: 0 aspirin 81 mg Tablet,Delayed Release (Dr/Ec) 81 mg PO DAILY RF: 0 acetaminophen 500 mg Tablet 1,000 mg PO Q6H PRN (Reason: Pain) RF: 0 baclofen 20 mg Tablet 20 mg PO TID RF: 0 camphor-menthol 0.2-3.5 % Gel 1 applic TOPICAL DAILY PRN (Reason: Pain) RF: 0 cyclobenzaprine 10 mg Tablet 10 mg PO TID PRN (Reason: Muscle Spasm) RF: 0 ketoconazole 2 % Shampoo 1 applic TOPICAL Q14D RF: 0 polyethylene glycol 3350 [Miralax] 17 gram Powder In Packet 17 g PO QODAY RF: 0 hydrocodone-acetaminophen 5-325 mg Tablet 1 tab PO Q6H PRN (Reason: Pain) RF: 0 ondansetron HCl [Zofran] 4 mg Tablet 4 mg PO Q8H PRN (Reason: Nausea) RF: 0 sennosides-docusate sodium [Senexon-S] 8.6-50 mg Tablet 1 tab-cap PO DAILY PRN (Reason: Constipation) RF: 0 dextromethorphan-guaifenesin 10-100 mg/5 mL Syrup 10 ml PO Q4H PRN (Reason: Cough) RF: 0 zinc oxide 20 % Ointment 1 applic TOPICAL TID RF: 0 pyridoxine (vitamin B6) 200 mg Tablet 200 mg PO DAILY RF: 0 mineral oil Enema 118 ml [place] DAILY PRN (Reason: Constipation) RF: 0 famotidine 20 mg Tablet 20 mg PO QHS RF: 0 magnesium hydroxide [Milk of Magnesia] 400 mg/5 mL Suspension 30 ml PO DAILY PRN (Reason: Constipation) RF: 0 ascorbic acid (vitamin C) [Vitamin C] 500 mg Tablet 500 mg PO BID RF: 0 bisacodyl 10 mg Suppository 10 mg [place] DAILY PRN (Reason: Constipation) RF: 0 ibuprofen 400 mg Tablet 400 mg PO Q8H PRN (Reason: Pain) RF: 0 cranberry 400 mg Capsule 400 mg PO BID RF: 0 docusate sodium [Colace] 100 mg Capsule 100 mg PO DAILY PRN (Reason: Constipation) RF: 0 magnesium citrate [Citrate of Magnesia] Solution 150 ml PO DAILY PRN (Reason: Constipation) RF: 0 multivitamin Capsule 1 cap PO DAILY RF: 0 vitamin E 400 unit Capsule 400 unit PO DAILY RF: 0 zinc 50 mg Capsule 50 mg PO DAILY RF: 0 gabapentin 400 mg Tablet 400 mg PO BID RF: 0 calcium carbonate-vitamin D3 [Calcium 600 + D(3)] 600 mg(1,500mg) -400 unit Tablet 1 tab PO DAILY RF: 0 cholecalciferol (vitamin D3) [Vitamin D3] 50 mcg (2,000 unit) Capsule 50 mcg PO DAILY RF: 0 salt moisturizing solution no1 Mist 1 spray INTRANASAL DAILY PRN (Reason: dry nares) RF: 0 loratadine 10 mg Capsule 10 mg PO DAILY RF: 0 guaifenesin [Mucinex] 600 mg Tablet Extended Release 12hr 600 mg PO Q12H PRN (Reason: Congestion) RF: 0 cyanocobalamin (vitamin B-12) 1,000 mcg Capsule 1,000 mcg PO DAILY RF: 0 Referrals / Follow Up: Portillo Trujillo DO [Primary Care Provider] - Disposition Disposition (needs filled in before D/C Order can be placed): [facility]irement Facility
--- NOTE | 2021-03-26 12:20 | PCM.TXEXTCAR ---
Diet 03/25/21 17:41 Diet: Regular - General Problem/Diagnosis (1) Urinary tract infection: Status: Acute (2) Urinary retention: Status: Acute (3) Neurogenic bladder: Status: Acute Allergies/Procedures Done in Hospital Allergies ciprofloxacin [From Cipro] Allergy (Verified 03/10/21 14:56) PT UNSURE OF REACTION nadolol Allergy (Verified 03/10/21 14:56) PT UNSURE OF REACTION Penicillins Allergy (Verified 03/10/21 14:56) PT UNSURE OF REACTION pregabalin Allergy (Verified 03/10/21 14:56) PT UNSURE OF REACTION Type of Care/Length of Stay Estimated LOS: More Than 30 Days Type of Care Needed: Intermediate Rehab Potential: Fair Prognosis: Fair Additional Orders/Day of Discharge Day of Discharge: 03/26/21 Follow Up Care Please Follow Up With: Vielka Durbin MD Discharge Plan Admission Admit Date/Time: 03/25/21 17:44 Attending Provider: Vielka Durbin Primary Care Provider: Portillo Trujillo Discharge Orders/Prescriptions Prescriptions: Continued Aspercreme (lidocaine) 4 % transdermal PRN PRN (Reason: Pain) RF: 0 atorvastatin 40 mg Tablet 40 mg PO QHS RF: 0 aspirin 81 mg Tablet,Delayed Release (Dr/Ec) 81 mg PO DAILY RF: 0 acetaminophen 500 mg Tablet 1,000 mg PO Q6H PRN (Reason: Pain) RF: 0 baclofen 20 mg Tablet 20 mg PO TID RF: 0 camphor-menthol 0.2-3.5 % Gel 1 applic TOPICAL DAILY PRN (Reason: Pain) RF: 0 cyclobenzaprine 10 mg Tablet 10 mg PO TID PRN (Reason: Muscle Spasm) RF: 0 ketoconazole 2 % Shampoo 1 applic TOPICAL Q14D RF: 0 polyethylene glycol 3350 [Miralax] 17 gram Powder In Packet 17 g PO QODAY RF: 0 hydrocodone-acetaminophen 5-325 mg Tablet 1 tab PO Q6H PRN (Reason: Pain) RF: 0 ondansetron HCl [Zofran] 4 mg Tablet 4 mg PO Q8H PRN (Reason: Nausea) RF: 0 sennosides-docusate sodium [Senexon-S] 8.6-50 mg Tablet 1 tab-cap PO DAILY PRN (Reason: Constipation) RF: 0 dextromethorphan-guaifenesin 10-100 mg/5 mL Syrup 10 ml PO Q4H PRN (Reason: Cough) RF: 0 zinc oxide 20 % Ointment 1 applic TOPICAL TID RF: 0 pyridoxine (vitamin B6) 200 mg Tablet 200 mg PO DAILY RF: 0 mineral oil Enema 118 ml [place] DAILY PRN (Reason: Constipation) RF: 0 famotidine 20 mg Tablet 20 mg PO QHS RF: 0 magnesium hydroxide [Milk of Magnesia] 400 mg/5 mL Suspension 30 ml PO DAILY PRN (Reason: Constipation) RF: 0 ascorbic acid (vitamin C) [Vitamin C] 500 mg Tablet 500 mg PO BID RF: 0 bisacodyl 10 mg Suppository 10 mg [place] DAILY PRN (Reason: Constipation) RF: 0 ibuprofen 400 mg Tablet 400 mg PO Q8H PRN (Reason: Pain) RF: 0 cranberry 400 mg Capsule 400 mg PO BID RF: 0 docusate sodium [Colace] 100 mg Capsule 100 mg PO DAILY PRN (Reason: Constipation) RF: 0 magnesium citrate [Citrate of Magnesia] Solution 150 ml PO DAILY PRN (Reason: Constipation) RF: 0 multivitamin Capsule 1 cap PO DAILY RF: 0 vitamin E 400 unit Capsule 400 unit PO DAILY RF: 0 zinc 50 mg Capsule 50 mg PO DAILY RF: 0 gabapentin 400 mg Tablet 400 mg PO BID RF: 0 calcium carbonate-vitamin D3 [Calcium 600 + D(3)] 600 mg(1,500mg) -400 unit Tablet 1 tab PO DAILY RF: 0 cholecalciferol (vitamin D3) [Vitamin D3] 50 mcg (2,000 unit) Capsule 50 mcg PO DAILY RF: 0 salt moisturizing solution no1 Mist 1 spray INTRANASAL DAILY PRN (Reason: dry nares) RF: 0 loratadine 10 mg Capsule 10 mg PO DAILY RF: 0 guaifenesin [Mucinex] 600 mg Tablet Extended Release 12hr 600 mg PO Q12H PRN (Reason: Congestion) RF: 0 cyanocobalamin (vitamin B-12) 1,000 mcg Capsule 1,000 mcg PO DAILY RF: 0 Referrals / Follow Up: Portillo Trujillo DO [Primary Care Provider] - Disposition Disposition (needs filled in before D/C Order can be placed): Senior Living Facility
--- NOTE | 2021-03-26 14:25 | PHA.DC.MR ---
Pharmacy Service has performed discharge medication reconciliation for this patient. The patient's discharge medication list was reviewed for discrepancies and discrepancies were resolved. Home Medications Aspercreme (lidocaine) 4 % TRANSDERMAL PRN PRN 03/10/21 acetaminophen 1,000 mg PO Q6H PRN 03/10/21 ascorbic acid (vitamin C) [Vitamin C] 500 mg PO BID 03/10/21 aspirin 81 mg PO DAILY 03/10/21 atorvastatin 40 mg PO QHS 03/10/21 baclofen 20 mg PO TID 03/10/21 bisacodyl 10 mg [place] DAILY PRN 03/10/21 calcium carbonate-vitamin D3 [Calcium 600 + D(3)] 1 tab PO DAILY 03/10/21 camphor-menthol 1 applic TOPICAL DAILY PRN 03/10/21 cholecalciferol (vitamin D3) [Vitamin D3] 50 mcg PO DAILY 03/10/21 cranberry 400 mg PO BID 03/10/21 cyanocobalamin (vitamin B-12) 1,000 mcg PO DAILY 03/10/21 cyclobenzaprine 10 mg PO TID PRN 03/10/21 dextromethorphan-guaifenesin 10 ml PO Q4H PRN 03/10/21 docusate sodium [Colace] 100 mg PO DAILY PRN 03/10/21 famotidine 20 mg PO QHS 03/10/21 gabapentin 400 mg PO BID 03/10/21 guaifenesin [Mucinex] 600 mg PO Q12H PRN 03/10/21 hydrocodone-acetaminophen 1 tab PO Q6H PRN 03/10/21 ibuprofen 400 mg PO Q8H PRN 03/10/21 ketoconazole 1 applic TOPICAL Q14D 03/10/21 loratadine 10 mg PO DAILY 03/10/21 magnesium citrate [Citrate of Magnesia] 150 ml PO DAILY PRN 03/10/21 magnesium hydroxide [Milk of Magnesia] 30 ml PO DAILY PRN 03/10/21 mineral oil 118 ml [place] DAILY PRN 03/10/21 multivitamin 1 cap PO DAILY 03/10/21 ondansetron HCl [Zofran] 4 mg PO Q8H PRN 03/10/21 polyethylene glycol 3350 [Miralax] 17 g PO QODAY 03/10/21 pyridoxine (vitamin B6) 200 mg PO DAILY 03/10/21 salt moisturizing solution no1 1 spray INTRANASAL DAILY PRN 03/10/21 sennosides-docusate sodium [Senexon-S] 1 tab-cap PO DAILY PRN 03/10/21 vitamin E 400 unit PO DAILY 03/10/21 zinc 50 mg PO DAILY 03/10/21 zinc oxide 1 applic TOPICAL TID 03/10/21
[2021-03-26 14:30] VITALS: BP 115/63; PULSE 78; RESP 18; TEMP 36.9; O2SAT 95
--- NOTE | 2021-03-26 14:30 | CASEMGMT ---
Social Work Note Pt is medically ready for discharge back to [facility] today. SW faxed completed discharge paperwork to [facility] including transfer to extended care facility, signed medication list, any scripts, COVID tool and COVID test. Original in SNF folder and copy on pt's chart. SW spoke with RN, pt can transport via cot. SW accessed trip assist and arranged transportation via cot for 4:30pm. Transportation form completed and placed on SNF folder and copy on pt's chart. RN updated on transportation time. SW in to speak with pt. SW updated pt on discharge and transportation time to [facility]. Pt states understanding, agreeable plan. Pt gave this worker permission to call her son Wojciech to update him. SW placed a call to Doreen at [facility] and updated her on discharge and transportation time. SW attempted to call pt's son Wojciech, no answer, SW unable to leave message as voicemail is not set up. Plan: Return to [facility] with Physician's transportation pt via cot at 4:30pm Brynn Mae MSW, ENVIRONMENTAL COMPLIANCE MANAGER
--- NOTE | 2021-04-04 08:12 | HP.PCM_ITS ---
HPI - General General Date of Admission: 03/25/21 HPI Narrative FRANCIE MOLINA, is a 66 F who presents for cystoscopic evaluation with suprapubic tube change for neurogenic bladder, urinary retention, recurrent urinary tract infections. [facility] Medical History Bladder disease COPD (chronic obstructive pulmonary disease) Depression Former smoker Gastric reflux History of atrial fibrillation History of deviated nasal septum History of edema History of stress test History of ulceration Hypertension Multiple sclerosis Neurogenic bladder Suprapubic catheter Urinary retention Urinary tract infection Home Medications Aspercreme (lidocaine) 4 % TRANSDERMAL PRN PRN 03/10/21 [History Last Taken Unknown] acetaminophen 1,000 mg PO Q6H PRN 03/10/21 [History Last Taken Unknown] ascorbic acid (vitamin C) [Vitamin C] 500 mg PO BID 03/10/21 [History Last Taken Unknown] aspirin 81 mg PO DAILY 03/10/21 [History Last Taken Unknown] atorvastatin 40 mg PO QHS 03/10/21 [History Last Taken Unknown] baclofen 20 mg PO TID 03/10/21 [History Last Taken 03/25/21] bisacodyl 10 mg [place] DAILY PRN 03/10/21 [History Last Taken Unknown] calcium carbonate-vitamin D3 [Calcium 600 + D(3)] 1 tab PO DAILY 03/10/21 [History Last Taken Unknown] camphor-menthol 1 applic TOPICAL DAILY PRN 03/10/21 [History Last Taken Unknown] cholecalciferol (vitamin D3) [Vitamin D3] 50 mcg PO DAILY 03/10/21 [History Last Taken Unknown] cranberry 400 mg PO BID 03/10/21 [History Last Taken Unknown] cyanocobalamin (vitamin B-12) 1,000 mcg PO DAILY 03/10/21 [History Last Taken Unknown] cyclobenzaprine 10 mg PO TID PRN 03/10/21 [History Last Taken Unknown] dextromethorphan-guaifenesin 10 ml PO Q4H PRN 03/10/21 [History Last Taken Unknown] docusate sodium [Colace] 100 mg PO DAILY PRN 03/10/21 [History Last Taken Unknown] famotidine 20 mg PO QHS 03/10/21 [History Last Taken Unknown] gabapentin 400 mg PO BID 03/10/21 [History Last Taken 03/25/21] guaifenesin [Mucinex] 600 mg PO Q12H PRN 03/10/21 [History Last Taken Unknown] hydrocodone-acetaminophen 1 tab PO Q6H PRN 03/10/21 [History Last Taken Unknown] ibuprofen 400 mg PO Q8H PRN 03/10/21 [History Last Taken Unknown] ketoconazole 1 applic TOPICAL Q14D 03/10/21 [History Last Taken Unknown] loratadine 10 mg PO DAILY 03/10/21 [History Last Taken Unknown] magnesium citrate [Citrate of Magnesia] 150 ml PO DAILY PRN 03/10/21 [History Last Taken Unknown] magnesium hydroxide [Milk of Magnesia] 30 ml PO DAILY PRN 03/10/21 [History Last Taken Unknown] mineral oil 118 ml [place] DAILY PRN 03/10/21 [History Last Taken Unknown] multivitamin 1 cap PO DAILY 03/10/21 [History Last Taken Unknown] ondansetron HCl [Zofran] 4 mg PO Q8H PRN 03/10/21 [History Last Taken Unknown] polyethylene glycol 3350 [Miralax] 17 g PO QODAY 03/10/21 [History Last Taken Unknown] pyridoxine (vitamin B6) 200 mg PO DAILY 03/10/21 [History Last Taken Unknown] salt moisturizing solution no1 1 spray INTRANASAL DAILY PRN 03/10/21 [History Last Taken Unknown] sennosides-docusate sodium [Senexon-S] 1 tab-cap PO DAILY PRN 03/10/21 [History Last Taken Unknown] vitamin E 400 unit PO DAILY 03/10/21 [History Last Taken Unknown] zinc 50 mg PO DAILY 03/10/21 [History Last Taken Unknown] zinc oxide 1 applic TOPICAL TID 03/10/21 [History Last Taken Unknown] Allergy/AdvReac Type Severity Reaction Status Date / Time ciprofloxacin [From Cipro] Allergy PT UNSURE Verified 03/10/21 14:56 OF REACTION nadolol Allergy PT UNSURE Verified 03/10/21 14:56 OF REACTION Penicillins Allergy PT UNSURE Verified 03/10/21 14:56 OF REACTION pregabalin Allergy PT UNSURE Verified 03/10/21 14:56 OF REACTION Surgical History (Updated 03/10/21 @ 15:31 by Arianne Mckeon) S/P percutaneous endoscopic gastrostomy (PEG) tube placement Social History Smoking Status: Former smoker ROS Constitutional Constitutional: Reports systems reviewed and no addt'l complaints, except as documented Eyes Eyes: Denies change in vision ENT HEENT: Denies dysphagia, headache(s) or tongue swelling Cardiovascular Cardiovascular: Denies abdominal pain, dizziness or edema Respiratory/Chest Respiratory/Chest: Denies chest congestion, chest tightness or cough Gastrointestinal Gastrointestinal: Denies abdominal pain or change in bowel habits Genitourinary Genitourinary: Reports other Details: retention with chronic SPT and infections Musculoskeletal Musculoskeletal: Reports systems reviewed and no addt'l complaints, except as documented and other Details: non-ambulatory Integumentary Integumentary: Reports systems reviewed and no addt'l complaints, except as documented Neurologic Neurologic: Reports systems reviewed and no addt'l complaints, except as documented Psychiatric Psychiatric: Reports systems reviewed and no addt'l complaints, except as documented Hematologic/Lymphatic Hematologic/Lymphatic: Reports systems reviewed and no addt'l complaints, except as documented Vital Signs Vital Signs Vital Signs: Weight Weight: 76.657 kg Body Mass Index (BMI) 29.9 Physical Exam Const alert, oriented x3 and no apparent distress HEENT normocephalic, head/scalp atraumatic, hearing grossly normal bilaterally, external ears normal, external nose normal and moist oral mucous membranes Eyes conjunctivae normal and no scleral icterus Neck supple General: trachea midline Lymph Lymphatic: no lymphedema noted Chest inspection of chest normal Chest: symmetrical chest wall rise Resp normal respiratory effort, normal air movement, no retractions and no use of accessory muscles Cardio regular rate GI soft to palpation, non-tender and non-distended Narrative: griffith with clear yellow urine Extremity normal to inspection Extremity Narrative: non-ambulatory Skin no rashes or lesions noted, skin turgor normal, no jaundice, no petechiae and no mottling Neuro oriented x3 and CN's II-XII intact bilaterally Psych mental status grossly normal, thought process normal, cooperative and affect normal Results Lab / Micro Data Result Diagrams: 03/26/21 05:34 03/26/21 05:34 Assessment & Plan Assessment/Plan (1) Urinary tract infection: (2) Urinary retention: (3) Neurogenic bladder: PLAN: Proceed with cystoscopy and suprapubic tube change, possible bladder biopsy, possible removal bladder calculus Procedure Criteria Type of Procedure Procedure Type: Elective Elective Risks - COVID COVID Risk Discussion: The surgeon/proceduralist and patient have discussed in detail the risk of exposure to and/or potential harm posed by the COVID-19 virus with having a surgery/procedure at this time versus the risk of delaying the surgery/procedure. It is not possible to know either the risk of delaying the surgery or procedure or chance of getting an infection with perfect accuracy, but a joint decision was made between the patient and the surgeon/proceduralist to proceed at this time with the scheduled surgery/procedure as indicated on the consent form.
== END 2021-03-26 17:35 ==
LOC: SDC 18:08 → MS3 03-26 05:19
PROVIDERS: Admitting Provider Urology; PCP Family Medicine; Referring Provider Urology; Visit Provider Urology
PROC: (CPT 52353; principal; 2021-03-25 12:20)
DX: N31.9 Neuromuscular dysfunction of bladder, unspecified (principal); N20.9 Urinary calculus, unspecified; N39.0 Urinary tract infection, site not specified; J44.9 Chronic obstructive pulmonary disease, unspecified; G35 Multiple sclerosis; I10 Essential (primary) hypertension; I48.91 Unspecified atrial fibrillation; F32.9 Major depressive disorder, single episode, unspecified; Z79.899 Other long term (current) drug therapy; Z79.82 Long term (current) use of aspirin; Z87.440 Personal history of urinary (tract) infections; Z87.891 Personal history of nicotine dependence; K21.9 Gastro-esophageal reflux disease without esophagitis
CPT/HCPCS: 00910; 51705; 52317; 36415; 80048; 85025; 87426; 88300; 93005; 96361; 96365; 96366; 96372; 99218; 99251; J7120; G0378; G0379; G0463; J2405

== ENCOUNTER → 2021-05-12 04:00 | Outpatient (REF) | payer MEDICARE, MEDICAID, SELFPAY ==
[2021-05-12 08:12] LABS: Absolute Lymphocyte Count 1.97 X10^3/uL (0.83-4.51); Absolute Neutrophil Count 3.4 X10^3/uL (2.0-7.7); Basophil# 0.03 X10^3/uL; Basophil% 0.5 % (0-1); Eosinophil# 0.16 X10^3/uL; Eosinophils% 2.5 % (0-5); Hematocrit 36.6 % (37-47); Hemoglobin 11.4 g/dL (12.0-15.0); Lymphocyte # 1.97 X10^3/ul (0.83-4.51); Lymphocyte % 31.1 % (19-41); Mean Corp Hgb Conc 31.1 g/dL (32-36); Mean Corpuscular Hgb 29.5 pg (27.0-32.0); Mean Corpuscular Volume 94.8 fL (81-99); Mean Platelet Vol. 10.6 fl (6.2-12.0); Monocyte# 0.73 X10^3/uL; Monocyte% 11.5 % (0-10); NRBC Flagged by Analyzer 0 % (0-5); Neutrophil # 3.43 X10^3/uL (2.7-7.7); Neutrophil % 54.2 % (47-70); Platelet Count 219 K/mm3 (150-450); RBC Distribution Width CV 13.7 % (11.6-14.6); RBC Distribution Width SD 47.6 fl (35.1-43.9); Red Blood Count 3.86 M/mm3 (4.2-5.4); White Blood Count 6.3 K/mm3 (4.4-11.0)
[2021-05-12 08:43] LABS: Cholesterol 131 mg/dL (200); High Density Lipoprotein 34 mg/dL; Triglycerides 190 mg/dL; Very Low Density Lipoprotein 38 mg/dL (5-40)
[2021-05-12 09:26] LABS: Vitamin D,25 Hydroxy 67.1 ng/mL
== END ==
LOC: OLS.ACH 04:00
PROVIDERS: PCP Family Medicine; Referring Provider Family Medicine; Visit Provider Family Medicine
DX: I10 Essential (primary) hypertension (principal); E78.49 Other hyperlipidemia; G35 Multiple sclerosis; R53.82 Chronic fatigue, unspecified; E55.9 Vitamin D deficiency, unspecified
CPT/HCPCS: 36415; 80061; 82306; 85025

== ENCOUNTER → 2021-06-27 22:00 | Outpatient (REF) | payer MEDICARE, MEDICAID, SELFPAY ==
[2021-06-29 08:01] LABS: Mucous, Urine 0 SEEN /hpf (<or=2+)
[2021-06-29 08:53] LABS: Color, Urine Yellow (Yellow); Glucose, Dipstick Normal (Normal); Ketone-Dipstick Negative (Negative); Leukocyte Esterase-Dipstick 500 /ul (Negative); Nitrite-Dipstick Positive (Negative); Occult Blood-Urine 250 /ul (Negative); Protein-Dipstick 100 mg/dl (Negative); Urine Bilirubin Dipstick Negative (Negative); Urine Clarity Turbid (Clear); Urine Urobilinogen 4 mg/dl (Normal)
[2021-06-29 09:08] LABS: Bacteria 4+ /hpf (None Seen); Red Blood Cells-Urine 5-10 SEEN /hpf (0-5); Squamous Epithelial Cells - UA 0-5 SEEN /hpf (5-10); White Blood Cells 25-50 SEEN /hpf (0-5)
== END ==
LOC: OLS.ACH 22:00
PROVIDERS: PCP Family Medicine; Visit Provider Family Medicine
DX: N31.9 Neuromuscular dysfunction of bladder, unspecified (principal); Z79.899 Other long term (current) drug therapy
CPT/HCPCS: 81001; 87086; 87088; 87186

== ENCOUNTER → 2021-07-21 | Outpatient (REF) | payer MEDICARE, MEDICAID, SELFPAY ==
[2021-07-22 08:10] LABS: Mucous, Urine 0 SEEN /hpf (<or=2+); Red Blood Cells-Urine 0 SEEN /hpf (0-5); Squamous Epithelial Cells - UA 0 SEEN /hpf (5-10)
[2021-07-22 08:34] LABS: Color, Urine Yellow (Yellow); Glucose, Dipstick Normal (Normal); Ketone-Dipstick Negative (Negative); Leukocyte Esterase-Dipstick 500 /ul (Negative); Nitrite-Dipstick Positive (Negative); Occult Blood-Urine 10 /ul (Negative); Protein-Dipstick Negative (Negative); Urine Bilirubin Dipstick Negative (Negative); Urine Clarity Cloudy (Clear); Urine Urobilinogen Normal (Normal)
[2021-07-22 08:44] LABS: Bacteria 3+ /hpf (None Seen)
[2021-07-22 08:45] LABS: White Blood Cells 5-10 SEEN /hpf (0-5)
== END | disposition home or self-care (01) ==
LOC: OLS.ACH 08:08
PROVIDERS: PCP Family Medicine; Visit Provider Family Medicine
DX: R31.9 Hematuria, unspecified (principal)
CPT/HCPCS: 81001; 87077; 87086; 87088; 87186

== ENCOUNTER → 2021-07-28 04:00 | Outpatient (REF) | payer MEDICARE, MEDICAID, SELFPAY ==
[2021-07-28 07:20] LABS: Absolute Lymphocyte Count 2.26 X10^3/uL (0.83-4.51); Absolute Neutrophil Count 4.2 X10^3/uL (2.0-7.7); Basophil# 0.04 X10^3/uL; Basophil% 0.5 % (0-1); Eosinophil# 0.13 X10^3/uL; Eosinophils% 1.7 % (0-5); Hematocrit 37.3 % (37-47); Hemoglobin 11.9 g/dL (12.0-15.0); Lymphocyte # 2.26 X10^3/ul (0.83-4.51); Lymphocyte % 29.1 % (19-41); Mean Corp Hgb Conc 31.9 g/dL (32-36); Mean Corpuscular Hgb 29.8 pg (27.0-32.0); Mean Corpuscular Volume 93.5 fL (81-99); Mean Platelet Vol. 10.7 fl (6.2-12.0); Monocyte# 1.11 X10^3/uL; Monocyte% 14.3 % (0-10); NRBC Flagged by Analyzer 0 % (0-5); Neutrophil % 54.1 % (47-70); Platelet Count 220 K/mm3 (150-450); RBC Distribution Width CV 14.2 % (11.6-14.6); RBC Distribution Width SD 48.4 fl (35.1-43.9); Red Blood Count 3.99 M/mm3 (4.2-5.4); White Blood Count 7.8 K/mm3 (4.4-11.0)
[2021-07-28 07:43] LABS: Cholesterol 128 mg/dL (200); High Density Lipoprotein 33 mg/dL; Triglycerides 206 mg/dL; Very Low Density Lipoprotein 41 mg/dL (5-40)
== END ==
LOC: OLS.ACH 04:00
PROVIDERS: PCP Family Medicine; Visit Provider Family Medicine
DX: E78.49 Other hyperlipidemia (principal); K21.9 Gastro-esophageal reflux disease without esophagitis
CPT/HCPCS: 36415; 80061; 85025

== ENCOUNTER → 2021-10-15 | Outpatient (REF) | payer MEDICARE, MEDICAID, SELFPAY | END | disposition home or self-care (01) | LOC: OLS.ACH 20:00 | PROVIDERS: PCP Family Medicine; Visit Provider Family Medicine | DX: N39.0 Urinary tract infection, site not specified (principal) | CPT/HCPCS: 87077; 87086; 87088; 87186 ==

== ENCOUNTER → 2021-10-20 | Outpatient (REF) | payer MEDICARE, MEDICAID, SELFPAY ==
[2021-10-20 09:50] LABS: Basophil# 0.06 X10^3/uL; Basophil% 0.8 % (0-1); Eosinophil# 0.13 X10^3/uL; Eosinophils% 1.7 % (0-5); Hematocrit 37.6 % (37-47); Hemoglobin 11.5 g/dL (12.0-15.0); Lymphocyte % 33.7 % (19-41); Mean Corp Hgb Conc 30.6 g/dL (32-36); Mean Corpuscular Volume 94.9 fL (81-99); Mean Platelet Vol. 10.6 fl (6.2-12.0); Monocyte# 0.85 X10^3/uL; NRBC Flagged by Analyzer 0 % (0-5); Neutrophil # 4.03 X10^3/uL (2.7-7.7); Neutrophil % 52.3 % (47-70); Platelet Count 260 K/mm3 (150-450); RBC Distribution Width CV 14.1 % (11.6-14.6); RBC Distribution Width SD 49.6 fl (35.1-43.9); Red Blood Count 3.96 M/mm3 (4.2-5.4); White Blood Count 7.7 K/mm3 (4.4-11.0)
[2021-10-20 10:06] LABS: Cholesterol 120 mg/dL (200); High Density Lipoprotein 35 mg/dL; Triglycerides 144 mg/dL; Very Low Density Lipoprotein 29 mg/dL (5-40)
== END | disposition home or self-care (01) ==
LOC: OLS.ACH 05:00
PROVIDERS: PCP Family Medicine; Visit Provider Family Medicine
DX: E78.49 Other hyperlipidemia (principal); G35 Multiple sclerosis
CPT/HCPCS: 36415; 80061; 85025

== ENCOUNTER → 2021-12-31 | Outpatient (REF) | payer MEDICARE, MEDICAID, SELFPAY ==
[2021-12-31 09:06] LABS: Absolute Lymphocyte Count 2.15 X10^3/uL (0.83-4.51); Absolute Neutrophil Count 3.5 X10^3/uL (2.0-7.7); Basophil# 0.04 X10^3/uL; Basophil% 0.6 % (0-1); Eosinophil# 0.13 X10^3/uL; Eosinophils% 2.1 % (0-5); Hematocrit 34.4 % (37-47); Lymphocyte # 2.15 X10^3/ul (0.83-4.51); Lymphocyte % 34.1 % (19-41); Mean Corpuscular Hgb 29.6 pg (27.0-32.0); Mean Corpuscular Volume 92.5 fL (81-99); Mean Platelet Vol. 10.5 fl (6.2-12.0); Monocyte% 7.9 % (0-10); NRBC Flagged by Analyzer 0 % (0-5); Neutrophil # 3.46 X10^3/uL (2.7-7.7); Platelet Count 229 K/mm3 (150-450); RBC Distribution Width CV 14.7 % (11.6-14.6); RBC Distribution Width SD 49.7 fl (35.1-43.9); Red Blood Count 3.72 M/mm3 (4.2-5.4); White Blood Count 6.3 K/mm3 (4.4-11.0)
[2021-12-31 09:29] LABS: AST(SGOT) 17 U/L (15-37); Alanine Aminotransfer ALT/SGPT 33 U/L (13-56); Alkaline Phosphatase 80 U/L (45-117); Anion Gap 6 (5-15); BUN 14 mg/dL (7-18); BUN/Creat Ratio 23.2 RATIO (10-20); Calcium,Total 8.3 mg/dL (8.5-10.1); Chloride 112 mmol/L (98-107); EST Glomerular Filtration Rate 105 mL/min (>60); Est Glom Filt Rate - Afr Amer 128 mL/min (>60); Globulin 2.9 g/dL (2.2-4.2); Glucose 107 mg/dL (74-106); Potassium 3.8 mmol/L (3.5-5.1); Protein, Total 5.9 g/dL (6.4-8.2); Sodium Level 144 mmol/L (136-145)
== END | disposition home or self-care (01) ==
LOC: OLS.ACH 05:00
PROVIDERS: PCP Family Medicine; Visit Provider Family Medicine
DX: N83.9 Noninflammatory disorder of ovary, fallopian tube and broad ligament, unspecified (principal)
CPT/HCPCS: 36415; 80053; 85025; 86304

== ENCOUNTER → 2022-01-12 | Outpatient (REF) | payer MEDICARE, MEDICAID, SELFPAY ==
[2022-01-12 10:15] LABS: Absolute Lymphocyte Count 2.71 X10^3/uL (0.83-4.51); Absolute Neutrophil Count 2.9 X10^3/uL (2.0-7.7); Basophil# 0.06 X10^3/uL; Basophil% 0.9 % (0-1); Eosinophil# 0.26 X10^3/uL; Hematocrit 35.2 % (37-47); Hemoglobin 10.9 g/dL (12.0-15.0); Lymphocyte # 2.71 X10^3/ul (0.83-4.51); Lymphocyte % 41.7 % (19-41); Mean Corpuscular Hgb 29.4 pg (27.0-32.0); Mean Corpuscular Volume 94.9 fL (81-99); Mean Platelet Vol. 10.7 fl (6.2-12.0); Monocyte# 0.53 X10^3/uL; Monocyte% 8.2 % (0-10); NRBC Flagged by Analyzer 0 % (0-5); Neutrophil # 2.92 X10^3/uL (2.7-7.7); Neutrophil % 44.9 % (47-70); Platelet Count 214 K/mm3 (150-450); RBC Distribution Width CV 14.9 % (11.6-14.6); RBC Distribution Width SD 51.7 fl (35.1-43.9); Red Blood Count 3.71 M/mm3 (4.2-5.4); White Blood Count 6.5 K/mm3 (4.4-11.0)
[2022-01-12 10:38] LABS: Cholesterol 130 mg/dL (200); High Density Lipoprotein 33 mg/dL; Triglycerides 222 mg/dL; Very Low Density Lipoprotein 44 mg/dL (5-40)
== END | disposition home or self-care (01) ==
LOC: OLS.ACH 04:45
PROVIDERS: PCP Family Medicine; Visit Provider Family Medicine
DX: D64.9 Anemia, unspecified (principal); E78.49 Other hyperlipidemia
CPT/HCPCS: 36415; 80061; 85025

== ENCOUNTER → 2022-02-18 | Outpatient (REF) | payer MEDICARE, MEDICAID, SELFPAY ==
[2022-02-18 11:05] LABS: AST(SGOT) 21 U/L (15-37); Alanine Aminotransfer ALT/SGPT 41 U/L (13-56); Albumin, Serum 3.2 g/dL (3.2-5.0); Alkaline Phosphatase 86 U/L (45-117); Anion Gap 9 (5-15); BUN 14 mg/dL (7-18); BUN/Creat Ratio 21.8 RATIO (10-20); Calcium,Total 8.8 mg/dL (8.5-10.1); Chloride 109 mmol/L (98-107); Creatinine, Serum 0.64 mg/dL (0.55-1.02); EST Glomerular Filtration Rate 98 mL/min (>60); Est Glom Filt Rate - Afr Amer 119 mL/min (>60); Globulin 3.3 g/dL (2.2-4.2); Glucose 107 mg/dL (74-106); Protein, Total 6.5 g/dL (6.4-8.2); Sodium Level 143 mmol/L (136-145)
== END | disposition home or self-care (01) ==
LOC: OLS.ACH 05:00
PROVIDERS: PCP Family Medicine; Visit Provider Family Medicine
DX: G35 Multiple sclerosis (principal)
CPT/HCPCS: 36415; 80053

== ENCOUNTER → 2022-02-23 | Outpatient (REF) | payer MEDICARE, MEDICAID, SELFPAY ==
[2022-02-24 07:57] LABS: Mucous, Urine 0 SEEN /hpf (<or=2+); Red Blood Cells-Urine 0 SEEN /hpf (0-5); Squamous Epithelial Cells - UA 0 SEEN /hpf (5-10)
[2022-02-24 08:45] LABS: Color, Urine Yellow (Yellow); Glucose, Dipstick Normal (Normal); Ketone-Dipstick Negative (Negative); Leukocyte Esterase-Dipstick 500 /ul (Negative); Nitrite-Dipstick Positive (Negative); Occult Blood-Urine 150 /ul (Negative); Protein-Dipstick 30 mg/dl (Negative); Urine Bilirubin Dipstick Negative (Negative); Urine Clarity Cloudy (Clear); Urine Urobilinogen Normal (Normal); Urine pH 6.5 (5.0 - 8.0)
[2022-02-24 09:29] LABS: Bacteria 4+ /hpf (None Seen); White Blood Cells 50-100 SEEN /hpf (0-5)
== END | disposition home or self-care (01) ==
LOC: OLS.ACH 17:00
PROVIDERS: PCP Family Medicine; Referring Provider Family Medicine; Visit Provider Family Medicine
DX: N31.9 Neuromuscular dysfunction of bladder, unspecified (principal); K21.9 Gastro-esophageal reflux disease without esophagitis
CPT/HCPCS: 81001; 87077; 87086; 87088; 87186

== ENCOUNTER → 2022-02-23 | Outpatient (REF) | payer MEDICARE, MEDICAID, SELFPAY ==
[2022-02-23 09:59] LABS: Absolute Neutrophil Count 3.9 X10^3/uL (2.0-7.7); Basophil# 0.04 X10^3/uL; Basophil% 0.6 % (0-1); Eosinophil# 0.14 X10^3/uL; Eosinophils% 1.9 % (0-5); Hematocrit 35.5 % (37-47); Hemoglobin 11.1 g/dL (12.0-15.0); Lymphocyte % 33.2 % (19-41); Mean Corp Hgb Conc 31.3 g/dL (32-36); Mean Corpuscular Hgb 29.7 pg (27.0-32.0); Mean Corpuscular Volume 94.9 fL (81-99); Mean Platelet Vol. 10.8 fl (6.2-12.0); Monocyte# 0.66 X10^3/uL; Monocyte% 9.1 % (0-10); NRBC Flagged by Analyzer 0 % (0-5); Neutrophil # 3.94 X10^3/uL (2.7-7.7); Neutrophil % 54.6 % (47-70); Platelet Count 238 K/mm3 (150-450); RBC Distribution Width SD 52.6 fl (35.1-43.9); Red Blood Count 3.74 M/mm3 (4.2-5.4); White Blood Count 7.2 K/mm3 (4.4-11.0)
== END | disposition home or self-care (01) ==
LOC: OLS.ACH 05:00
PROVIDERS: PCP Family Medicine; Visit Provider Family Medicine
DX: D64.9 Anemia, unspecified (principal)
CPT/HCPCS: 36415; 85025

== ENCOUNTER → 2022-04-01 | Outpatient (REF) | payer MEDICARE, MEDICAID, SELFPAY ==
[2022-04-01 09:06] LABS: AST(SGOT) 24 U/L (15-37); Alanine Aminotransfer ALT/SGPT 47 U/L (13-56)
== END | disposition home or self-care (01) ==
LOC: OLS.ACH 04:00
PROVIDERS: PCP Family Medicine; Visit Provider Family Medicine
DX: G35 Multiple sclerosis (principal)
CPT/HCPCS: 36415; 84450; 84460

== ENCOUNTER → 2022-04-06 | Outpatient (REF) | payer MEDICARE, MEDICAID, SELFPAY ==
[2022-04-06 08:42] LABS: Absolute Lymphocyte Count 2.67 X10^3/uL (0.83-4.51); Absolute Neutrophil Count 3.8 X10^3/uL (2.0-7.7); Basophil# 0.04 X10^3/uL; Basophil% 0.5 % (0-1); Eosinophil# 0.13 X10^3/uL; Eosinophils% 1.7 % (0-5); Hematocrit 38.3 % (37-47); Lymphocyte # 2.67 X10^3/ul (0.83-4.51); Lymphocyte % 35.6 % (19-41); Mean Corp Hgb Conc 31.3 g/dL (32-36); Mean Corpuscular Hgb 29.4 pg (27.0-32.0); Mean Corpuscular Volume 93.9 fL (81-99); Monocyte# 0.79 X10^3/uL; Monocyte% 10.5 % (0-10); NRBC Flagged by Analyzer 0 % (0-5); Neutrophil # 3.83 X10^3/uL (2.7-7.7); Neutrophil % 51.2 % (47-70); Platelet Count 247 K/mm3 (150-450); RBC Distribution Width CV 14.9 % (11.6-14.6); RBC Distribution Width SD 51.8 fl (35.1-43.9); Red Blood Count 4.08 M/mm3 (4.2-5.4); White Blood Count 7.5 K/mm3 (4.4-11.0)
[2022-04-06 09:03] LABS: Cholesterol 157 mg/dL (200); High Density Lipoprotein 35 mg/dL; Triglycerides 266 mg/dL; Very Low Density Lipoprotein 53 mg/dL (5-40)
== END | disposition home or self-care (01) ==
LOC: OLS.ACH 05:00
PROVIDERS: PCP Family Medicine; Visit Provider Family Medicine
DX: E78.49 Other hyperlipidemia (principal); D64.9 Anemia, unspecified
CPT/HCPCS: 36415; 80061; 85025

== ENCOUNTER → 2022-06-26 | Outpatient (REF) | payer MEDICARE, MEDICAID, SELFPAY ==
[2022-06-27 12:09] LABS: Bacteria 0 SEEN /hpf (None Seen); Mucous, Urine 0 SEEN /hpf (<or=2+); Red Blood Cells-Urine 0 SEEN /hpf (0-5)
[2022-06-27 12:31] LABS: Color, Urine Yellow (Yellow); Glucose, Dipstick Normal (Normal); Ketone-Dipstick Negative (Negative); Leukocyte Esterase-Dipstick 500 /ul (Negative); Nitrite-Dipstick Positive (Negative); Occult Blood-Urine Negative /ul (Negative); Protein-Dipstick Negative (Negative); Specific Gravity, Urine 1.015 (1.002-1.030); Urine Bilirubin Dipstick Negative (Negative); Urine Clarity Sl. Cloudy (Clear); Urine Urobilinogen Normal (Normal)
[2022-06-27 12:47] LABS: Calcium Oxalate Crystals Ur RARE /hpf (<or=2+); Squamous Epithelial Cells - UA 0-5 SEEN /hpf (5-10); White Blood Cells 0-5 SEEN /hpf (0-5)
[2022-06-27 12:48] LABS: Amorphous Sediment 2+
== END ==
LOC: OLS.ACH 12:08
PROVIDERS: PCP Family Medicine; Visit Provider Family Medicine
DX: R82.90 Unspecified abnormal findings in urine (principal); Z87.440 Personal history of urinary (tract) infections
CPT/HCPCS: 81001; 87077; 87086; 87088; 87186

== ENCOUNTER → 2022-06-29 | Outpatient (REF) | payer MEDICARE, MEDICAID, SELFPAY ==
[2022-06-29 09:29] LABS: Absolute Lymphocyte Count 2.37 X10^3/uL (0.83-4.51); Absolute Neutrophil Count 5.1 X10^3/uL (2.0-7.7); Basophil# 0.05 X10^3/uL; Basophil% 0.6 % (0-1); Eosinophil# 0.13 X10^3/uL; Eosinophils% 1.5 % (0-5); Hematocrit 36.7 % (37-47); Hemoglobin 11.5 g/dL (12.0-15.0); Lymphocyte # 2.37 X10^3/ul (0.83-4.51); Lymphocyte % 28.2 % (19-41); Mean Corp Hgb Conc 31.3 g/dL (32-36); Mean Corpuscular Hgb 29.6 pg (27.0-32.0); Mean Corpuscular Volume 94.3 fL (81-99); Monocyte# 0.78 X10^3/uL; Monocyte% 9.3 % (0-10); NRBC Flagged by Analyzer 0 % (0-5); Neutrophil # 5.06 X10^3/uL (2.7-7.7); Neutrophil % 60.2 % (47-70); Platelet Count 232 K/mm3 (150-450); RBC Distribution Width CV 14.7 % (11.6-14.6); RBC Distribution Width SD 51.4 fl (35.1-43.9); Red Blood Count 3.89 M/mm3 (4.2-5.4); White Blood Count 8.4 K/mm3 (4.4-11.0)
[2022-06-29 09:59] LABS: Cholesterol 127 mg/dL (200); High Density Lipoprotein 33 mg/dL; Triglycerides 223 mg/dL; Very Low Density Lipoprotein 45 mg/dL (5-40)
== END ==
LOC: OLS.ACH 05:00
PROVIDERS: PCP Family Medicine; Visit Provider Family Medicine
DX: I10 Essential (primary) hypertension (principal); G35 Multiple sclerosis; E78.49 Other hyperlipidemia
CPT/HCPCS: 36415; 80061; 85025

== ENCOUNTER → 2022-08-04 | Outpatient (REF) | payer MEDICARE, MEDICAID, SELFPAY ==
[2022-08-04 19:36] LABS: Hematocrit 39.8 % (37-47); Hemoglobin 12.6 g/dL (12.0-15.0); Mean Corp Hgb Conc 31.7 g/dL (32-36); Mean Corpuscular Volume 91.7 fL (81-99); Mean Platelet Vol. 10.4 fl (6.2-12.0); Platelet Count 224 K/mm3 (150-450); RBC Distribution Width CV 14.3 % (11.6-14.6); RBC Distribution Width SD 48.4 fl (35.1-43.9); Red Blood Count 4.34 M/mm3 (4.2-5.4); White Blood Count 9.6 K/mm3 (4.4-11.0)
[2022-08-04 19:40] LABS: Anion Gap 8 (5-15); BUN 11 mg/dL (7-18); BUN/Creat Ratio 17.8 RATIO (10-20); Calcium,Total 8.2 mg/dL (8.5-10.1); Chloride 106 mmol/L (98-107); Creatinine, Serum 0.62 mg/dL (0.55-1.02); EST Glomerular Filtration Rate 102 mL/min (>60); Est Glom Filt Rate - Afr Amer 124 mL/min (>60); Glucose 140 mg/dL (74-106); Potassium 3.9 mmol/L (3.5-5.1); Sodium Level 139 mmol/L (136-145)
== END ==
LOC: OLS.ACH 18:40
PROVIDERS: PCP Family Medicine; Visit Provider Family Medicine
DX: R50.9 Fever, unspecified (principal); R53.83 Other fatigue
CPT/HCPCS: 36415; 80048; 85027

== ENCOUNTER 2022-09-08 03:53 | Inpatient (IN) | payer MEDICARE, MEDICAID, SELFPAY ==
[2022-09-08] VITALS (19 sets, daily range): BP systolic 92–114; BP diastolic 49–71; PULSE 68–122; RESP 15–21; TEMP 36.2–39.1; O2SAT 87–98; BMI 29.4; BMI 33.3
--- NOTE | 2022-09-08 04:00 | EKG12_ITS ---
Test Reason : FEVER Blood Pressure : / mmHG Vent. Rate : 122 BPM Atrial Rate : 122 BPM P-R Int : 158 ms QRS Dur : 090 ms QT Int : 324 ms P-R-T Axes : 045 -73 051 degrees QTc Int : 461 ms Sinus tachycardia Incomplete right bundle branch block Possible Left atrial enlargement Possible Pulmonary disease pattern Left anterior fascicular block Nonspecific T wave abnormality Abnormal ECG Confirmed by MINDI HALL, JAILYN ([id number]), scientific editor GLENN BRAN ([id number]) on 09/09/2022 10:45:27 AM Referred By: Confirmed By:JAILYN OBREGON MD
--- NOTE | 2022-09-08 04:02 | EX.ED.DYSGE1 ---
HPI History of Present Illness Chief Complaint: Fever Narrative Narrative: 67-year-old female presenting with fever, chills, body aches, cough and dyspnea since yesterday. She states has been worse today. He is currently at a retirement. She is presenting with generalized malaise. There is reported that she was tested for COVID before she came to the emergency room and this was positive. She reportedly had a fever of 104 and was given Tylenol before she came. She has been hypoxic at the retirement. [facility] Medical History (Updated 09/08/22 @ 06:[address] Wojciech Hodge MD) Bladder disease COPD (chronic obstructive pulmonary disease) Depression Former smoker Gastric reflux History of atrial fibrillation History of deviated nasal septum History of edema History of stress test History of ulceration Hypertension Multiple sclerosis Neurogenic bladder Suprapubic catheter Urinary retention Urinary tract infection Home Medications Aspercreme (lidocaine) 4 % transdermal PRN PRN Pain 03/10/21 [History Last Taken Unknown] acetaminophen 500 mg tablet 1,000 mg PO Q6H PRN Pain 03/10/21 [History Last Taken Unknown] ascorbic acid (vitamin C) 500 mg tablet (Vitamin C) 500 mg PO BID 03/10/21 [History Last Taken Unknown] aspirin 81 mg tablet,delayed release 81 mg PO DAILY 03/10/21 [History Last Taken Unknown] atorvastatin 40 mg tablet 40 mg PO QHS 03/10/21 [History Last Taken Unknown] baclofen 20 mg tablet 20 mg PO TID 03/10/21 [History Last Taken 03/25/21] bisacodyl 10 mg rectal suppository 10 mg CO DAILY PRN Constipation 03/10/21 [History Last Taken Unknown] calcium carbonate 600 mg-vitamin D3 10 mcg (400 unit) tablet (Calcium 600 + D(3)) 1 tab PO DAILY 03/10/21 [History Last Taken Unknown] camphor-menthol 0.2 %-3.5 % topical gel 1 applic topical DAILY PRN Pain 03/10/21 [History Last Taken Unknown] cholecalciferol (vitamin D3) 50 mcg (2,000 unit) capsule (Vitamin D3) 50 mcg PO DAILY 03/10/21 [History Last Taken Unknown] cranberry 400 mg capsule 400 mg PO BID 03/10/21 [History Last Taken Unknown] cyanocobalamin (vitamin B-12) 1,000 mcg capsule 1,000 mcg PO DAILY 03/10/21 [History Last Taken Unknown] cyclobenzaprine 10 mg tablet 10 mg PO TID PRN Muscle Spasm 03/10/21 [History Last Taken Unknown] dextromethorphan-guaifenesin 10 mg-100 mg/5 mL oral syrup 10 ml PO Q4H PRN Cough 03/10/21 [History Last Taken Unknown] docusate sodium 100 mg capsule (Colace) 100 mg PO DAILY PRN Constipation 03/10/21 [History Last Taken Unknown] famotidine 20 mg tablet 20 mg PO QHS 03/10/21 [History Last Taken Unknown] gabapentin 400 mg tablet 400 mg PO BID 03/10/21 [History Last Taken 03/25/21] guaifenesin 600 mg tablet, extended release 12 hr (Mucinex) 600 mg PO Q12H PRN Congestion 03/10/21 [History Last Taken Unknown] hydrocodone-acetaminophen 5-325mg 5mg-325mg 1 tab PO Q6H PRN Pain 03/10/21 [History Last Taken Unknown] ibuprofen 400 mg tablet 400 mg PO Q8H PRN Pain 03/10/21 [History Last Taken Unknown] ketoconazole 2 % shampoo 1 applic topical Q14D 03/10/21 [History Last Taken Unknown] loratadine 10 mg capsule 10 mg PO DAILY 03/10/21 [History Last Taken Unknown] magnesium citrate (Citrate of Magnesia oral) 150 ml PO DAILY PRN Constipation 03/10/21 [History Last Taken Unknown] magnesium hydroxide 400 mg/5 mL oral suspension (Milk of Magnesia) 30 ml PO DAILY PRN Constipation 03/10/21 [History Last Taken Unknown] mineral oil 118 ml CO DAILY PRN Constipation 03/10/21 [History Last Taken Unknown] multivitamin 1 cap PO DAILY 03/10/21 [History Last Taken Unknown] ondansetron HCl 4 mg tablet (Zofran) 4 mg PO Q8H PRN Nausea 03/10/21 [History Last Taken Unknown] polyethylene glycol 3350 17 gram oral powder packet (Miralax) 17 g PO QODAY 03/10/21 [History Last Taken Unknown] pyridoxine (vitamin B6) 200 mg tablet 200 mg PO DAILY 03/10/21 [History Last Taken Unknown] salt moisturizing solution no1 1 spray intranasal DAILY PRN dry nares 03/10/21 [History Last Taken Unknown] sennosides 8.6 mg-docusate sodium 50 mg tablet (Senexon-S) 1 tab-cap PO DAILY PRN Constipation 03/10/21 [History Last Taken Unknown] vitamin E 268 mg (400 unit) capsule 400 unit PO DAILY 03/10/21 [History Last Taken Unknown] zinc 50 mg capsule 50 mg PO DAILY 03/10/21 [History Last Taken Unknown] zinc oxide 20 % topical ointment 1 applic topical TID 03/10/21 [History Last Taken Unknown] montelukast 10 mg tablet (Singulair) 10 mg PO QHS 09/08/22 [History Last Taken Unknown] omeprazole 20 mg capsule,delayed release 20 mg PO DAILY 09/08/22 [History Last Taken Unknown] Allergy/AdvReac Type Severity Reaction Status Date / Time ciprofloxacin [From Cipro] Allergy PT UNSURE Verified 09/08/22 04:23 OF REACTION nadolol Allergy PT UNSURE Verified 09/08/22 04:23 OF REACTION Penicillins Allergy PT UNSURE Verified 09/08/22 04:23 OF REACTION pregabalin Allergy PT UNSURE Verified 09/08/22 04:23 OF REACTION Surgical History S/P percutaneous endoscopic gastrostomy (PEG) tube placement Social History Smoking Status: Former smoker ROS ROS ED Constitutional Constitutional ED: Reports chills and fever(s) Eyes Eyes: Denies change in vision or diplopia ENT ENT ED: Reports sore throat Cardiovascular Cardiovascular: Reports palpitations and racing heartbeat Respiratory/Chest Respiratory/Chest: Reports cough and dyspnea Gastrointestinal Gastrointestinal: Reports nausea; Denies abdominal pain or vomiting Genitourinary Genitourinary ED: Denies dysuria or hematuria Musculoskeletal Musculoskeletal: Reports myalgias Integumentary Denies abscess or Abrasions Neurologic Neurologic: Reports headache(s); Denies paresthesias EXAM Physical Exam Const Vital Signs: 09/08/22 03:54 09/08/22 04:01 09/08/22 04:02 Temperature 102.3 F H 102.3 F H Temperature Source Oral Oral Pulse Rate 122 H 122 H Respiratory Rate 21 H 21 H Respiratory Effort Normal Non-Labored Respiratory Pattern Normal Blood Pressure 109/57 L 109/57 L Blood Pressure Mean 74 74 Pulse Ox 87 87 Oxygen Delivery Method Room Air Room Air Oxygen Flow Rate (L/min) 09/08/22 04:05 09/08/22 05:25 09/08/22 06:40 Temperature 99.1 F 99 F Temperature Source Oral Oral Pulse Rate 99 92 Respiratory Rate 15 16 Respiratory Effort Respiratory Pattern Blood Pressure 93/49 L 92/60 Blood Pressure Mean 63 70 Pulse Ox 94 96 95 Oxygen Delivery Method Nasal Cannula Nasal Cannula Nasal Cannula Oxygen Flow Rate (L/min) 2 2 2 09/08/22 06:41 Temperature 99 F Temperature Source Oral Pulse Rate 92 Respiratory Rate 16 Respiratory Effort Respiratory Pattern Blood Pressure 92/60 Blood Pressure Mean 70 Pulse Ox 95 Oxygen Delivery Method Nasal Cannula Oxygen Flow Rate (L/min) 2 Positive obese General Appearance ED: Negative for pallor Nutritional Appearance: obese HEENT Reports dry mucous membranes Negative for trauma Mouth ED: Yes dry mucous membranes Mouth: dry mucous membranes Eyes PERRL and EOMs intact bilaterally General Eye ED: Negative for pale conjunctiva or scleral icterus Neck no lymphadenopathy Chest Wall inspection of chest normal Resp Resp Narrative: Bibasilar crackles. No wheezing. Cardio regular rhythm Rate: tachycardic GI normal to inspection, nondistended, normoactive bowel sounds Back/Spine no CVA tenderness Neuro CN's II-XII intact bilaterally Sensorium / Orientation: alert Motor Exam: general weakness Psych Psych Narrative: Appears confused and weak Skin no rashes or lesions noted and no wounds General Skin Exam: Negative for jaundice or pallor Sepsis Attestation Sepsis Alert: Yes Sepsis Attestation: Sepsis Ruled Out Date exam was performed: 09/08/22 Possible Source of Sepsis: Pulmonary MDM MDM MDM Narrative Medical decision making narrative: Patient presenting with a fever of 102.3. She was reportedly given Tylenol for a fever of 104 at the retirement. She was tested for COVID-19 prior to leaving and she was positive. Patient is also tachycardic, tachypneic. Sepsis work-up will be pursued. Patient noted to be 87% on room air sitting in the bed. She is placed on 2 L nasal cannula is maintaining sats of 94%. CBC shows a normal white blood cell count 8.9. Hemoglobin hematocrit are stable. Platelets are normal. Renal function within normal limits. Lactic acid 1.9. Electrolytes normal. High-sensitivity troponin is 12. EKG on my interpretation shows a sinus tachycardia at a rate of 122 bpm. Chest x-ray my interpretation shows no acute cardiopulmonary process and radiologist interprets this and agrees. Patient did test positive for COVID here in the ER today. influenza was negative. Dimer was elevated so I did obtain a CTA of the chest which does not show any PE or dissection. Patient's fever has come down. Heart rate is normalized. Because she is hypoxic she will need to be admitted. She was given 6 mg of Decadron IV. I spoke with her son and told him that she would be getting admitted. Discussed with the hospitalist. Impression: 1. COVID-19 2. Hypoxic respiratory failure 3. Fever Lab Data Attestation: I reviewed the patient's lab results. Labs: Laboratory Results - last 24 hr 09/08/22 09/08/22 09/08/22 04:08 04:08 04:08 WBC 8.9 RBC 3.94 L Hgb 11.4 L Hct 36.0 L MCV 91.4 MCH 28.9 MCHC 31.7 L RDW Std Deviation 50.0 H RDW Coeff of Joshua 14.8 H Plt Count 224 MPV 10.0 Immature Gran % (Auto) 0.700 Neut % (Auto) 77.9 H Lymph % (Auto) 8.8 L Cowley % (Auto) 12.3 H Eos % (Auto) 0.1 Baso % (Auto) 0.2 Absolute Neuts (auto) 7.0 Absolute Lymphs (auto) 0.79 L Nucleated RBC % 0 PT 14.1 INR 1.1 APTT 30.5 D-Dimer Quant (PE/DVT) 0.68 H* Sodium 139 Potassium 3.4 L Chloride 107 Carbon Dioxide 25.0 Anion Gap 7 BUN 18 Creatinine 0.79 Estim Creat Clear Calc 51.11 Est GFR (MDRD) Af Amer 93 Est GFR (MDRD) Non-Af 77 BUN/Creatinine Ratio 22.7 H Glucose 156 H Lactic Acid Calcium 8.4 L Total Bilirubin 0.30 AST 31 ALT 52 Alkaline Phosphatase 98 Troponin I High Sens 12 Total Protein 6.6 Albumin 3.0 L Globulin 3.6 Albumin/Globulin Ratio 0.8 L 09/08/22 04:08 WBC RBC Hgb Hct MCV MCH MCHC RDW Std Deviation RDW Coeff of Joshua Plt Count MPV Immature Gran % (Auto) Neut % (Auto) Lymph % (Auto) Cowley % (Auto) Eos % (Auto) Baso % (Auto) Absolute Neuts (auto) Absolute Lymphs (auto) Nucleated RBC % PT INR APTT D-Dimer Quant (PE/DVT) Sodium Potassium Chloride Carbon Dioxide Anion Gap BUN Creatinine Estim Creat Clear Calc Est GFR (MDRD) Af Amer Est GFR (MDRD) Non-Af BUN/Creatinine Ratio Glucose Lactic Acid 1.9 Calcium Total Bilirubin AST ALT Alkaline Phosphatase Troponin I High Sens Total Protein Albumin Globulin Albumin/Globulin Ratio Radiography Diagnostic Testing: Clinical Impression(s) from Imaging Studies Chest X-Ray 09/08/22 04:20 IMPRESSION: 1. Low lung volumes limit the exam. No consolidations. 2. No acute cardiopulmonary abnormality. 3. Marked dextroscoliosis. Electronically Signed: Nacho Scruggs MD at 4:33 EST , Chest CTA 09/08/22 04:48 IMPRESSION: 1. Moderate atelectasis bilateral lower lobes. 2. No pulmonary embolism or dissection. 3. Dextroscoliosis. Electronically Signed: Nacho Scruggs MD at 5:36 EST , Discharge Plan Triage Chief Complaint: Fever ED Provider: Vern Mcintosh Dx/Rx/DC Orders Prescriptions: No Action Aspercreme (lidocaine) 4 % transdermal PRN PRN (Reason: Pain) atorvastatin 40 mg Tablet 40 mg PO QHS aspirin 81 mg Tablet,Delayed Release (Dr/Ec) 81 mg PO DAILY acetaminophen 500 mg Tablet 1,000 mg PO Q6H PRN (Reason: Pain) baclofen 20 mg Tablet 20 mg PO TID camphor-menthol 0.2-3.5 % Gel 1 applic TOPICAL DAILY PRN (Reason: Pain) cyclobenzaprine 10 mg Tablet 10 mg PO TID PRN (Reason: Muscle Spasm) ketoconazole 2 % Shampoo 1 applic TOPICAL Q14D polyethylene glycol 3350 [Miralax] 17 gram Powder In Packet 17 g PO QODAY hydrocodone-acetaminophen 5-325 mg Tablet 1 tab PO Q6H PRN (Reason: Pain) ondansetron HCl [Zofran] 4 mg Tablet 4 mg PO Q8H PRN (Reason: Nausea) sennosides-docusate sodium [Senexon-S] 8.6-50 mg Tablet 1 tab-cap PO DAILY PRN (Reason: Constipation) dextromethorphan-guaifenesin 10-100 mg/5 mL Syrup 10 ml PO Q4H PRN (Reason: Cough) zinc oxide 20 % Ointment 1 applic TOPICAL TID pyridoxine (vitamin B6) 200 mg Tablet 200 mg PO DAILY mineral oil Enema 118 ml CO DAILY PRN (Reason: Constipation) famotidine 20 mg Tablet 20 mg PO QHS magnesium hydroxide [Milk of Magnesia] 400 mg/5 mL Suspension 30 ml PO DAILY PRN (Reason: Constipation) ascorbic acid (vitamin C) [Vitamin C] 500 mg Tablet 500 mg PO BID bisacodyl 10 mg Suppository 10 mg CO DAILY PRN (Reason: Constipation) ibuprofen 400 mg Tablet 400 mg PO Q8H PRN (Reason: Pain) cranberry 400 mg Capsule 400 mg PO BID docusate sodium [Colace] 100 mg Capsule 100 mg PO DAILY PRN (Reason: Constipation) magnesium citrate [Citrate of Magnesia] Solution 150 ml PO DAILY PRN (Reason: Constipation) multivitamin Capsule 1 cap PO DAILY vitamin E 400 unit Capsule 400 unit PO DAILY zinc 50 mg Capsule 50 mg PO DAILY gabapentin 400 mg Tablet 400 mg PO BID calcium carbonate-vitamin D3 [Calcium 600 + D(3)] 600 mg(1,500mg) -400 unit Tablet 1 tab PO DAILY cholecalciferol (vitamin D3) [Vitamin D3] 50 mcg (2,000 unit) Capsule 50 mcg PO DAILY salt moisturizing solution no1 Mist 1 spray INTRANASAL DAILY PRN (Reason: dry nares) loratadine 10 mg Capsule 10 mg PO DAILY guaifenesin [Mucinex] 600 mg Tablet Extended Release 12hr 600 mg PO Q12H PRN (Reason: Congestion) cyanocobalamin (vitamin B-12) 1,000 mcg Capsule 1,000 mcg PO DAILY omeprazole 20 mg Capsule,Delayed Release(Dr/Ec) 20 mg PO DAILY montelukast [Singulair] 10 mg Tablet 10 mg PO QHS Primary Care Provider: Poritllo Trujillo Referrals: Portillo Trujillo DO [Primary Care Provider] -
[2022-09-08] MEDS: 0.9% Normal Saline 1,000 ML 999 ML IV (04:12)
[2022-09-08] MEDS: dexAMETHasone 10 MG/ML Vial 6 MG IV (04:12)
[2022-09-08 04:16] LABS: Absolute Lymphocyte Count 0.79 X10^3/uL (0.83-4.51); Basophil# 0.02 X10^3/uL; Basophil% 0.2 % (0-1); Eosinophil# 0.01 X10^3/uL; Eosinophils% 0.1 % (0-5); Hemoglobin 11.4 g/dL (12.0-15.0); Lymphocyte # 0.79 X10^3/ul (0.83-4.51); Lymphocyte % 8.8 % (19-41); Mean Corp Hgb Conc 31.7 g/dL (32-36); Mean Corpuscular Hgb 28.9 pg (27.0-32.0); Mean Corpuscular Volume 91.4 fL (81-99); Monocyte% 12.3 % (0-10); NRBC Flagged by Analyzer 0 % (0-5); Neutrophil # 6.96 X10^3/uL (2.7-7.7); Neutrophil % 77.9 % (47-70); Platelet Count 224 K/mm3 (150-450); RBC Distribution Width CV 14.8 % (11.6-14.6); Red Blood Count 3.94 M/mm3 (4.2-5.4); White Blood Count 8.9 K/mm3 (4.4-11.0)
--- NOTE | 2022-09-08 04:20 | RAD_ITS ---
EXAM: XR CHEST, 1 VIEW CLINICAL INDICATION: fever TECHNIQUE: Frontal view of the chest. This report was created using [employer] report generation technology. COMPARISON: None. FINDINGS: LUNGS AND PLEURAL SPACES: Low lung volumes limit the exam. No consolidations. No pneumothorax. No effusion. HEART: Unremarkable. Cardiac silhouette not enlarged. MEDIASTINUM: Central airways and mediastinal contour are unremarkable. BONES/JOINTS: Marked dextroscoliosis. SOFT TISSUES: Unremarkable. RAD/Chest 1 View (Portable) IMPRESSION: 1. Low lung volumes limit the exam. No consolidations. 2. No acute cardiopulmonary abnormality. 3. Marked dextroscoliosis. Electronically Signed: Nacho Scruggs MD at 4:33 EST ,
[2022-09-08 04:27] LABS: International Normalized Ratio 1.1; Prothrombin Time (Protime)PT. 14.1 SECONDS (11.7-14.9)
[2022-09-08 04:28] LABS: Partial Thromboplast Time 30.5 Seconds (24.1-36.2)
[2022-09-08 04:36] LABS: ALB/GLOB Ratio 0.8 RATIO (0.9-2.4); AST(SGOT) 31 U/L (15-37); Alanine Aminotransfer ALT/SGPT 52 U/L (13-56); Alkaline Phosphatase 98 U/L (45-117); Anion Gap 7 (5-15); BUN 18 mg/dL (7-18); BUN/Creat Ratio 22.7 RATIO (10-20); Calcium,Total 8.4 mg/dL (8.5-10.1); Chloride 107 mmol/L (98-107); Creatinine, Serum 0.79 mg/dL (0.55-1.02); EST Glomerular Filtration Rate 77 mL/min (>60); Est Glom Filt Rate - Afr Amer 93 mL/min (>60); Estimated Creatinine Clearance 51.11 ml/min; Globulin 3.6 g/dL (2.2-4.2); Glucose 156 mg/dL (74-106); Potassium 3.4 mmol/L (3.5-5.1); Protein, Total 6.6 g/dL (6.4-8.2); Sodium Level 139 mmol/L (136-145); Troponin-I HS 12 pg/mL (3.0-54.0)
[2022-09-08 04:38] LABS: Lactic Acid 1.9 mmol/L (0.4-1.9)
[2022-09-08 04:47] LABS: D-Dimer Quantitative (DVT/PE) 0.68 FEU/ug/m (0.27-0.49)
--- NOTE | 2022-09-08 04:48 | CT_ITS ---
EXAM: CT ANGIOGRAPHY CHEST WITHOUT AND WITH INTRAVENOUS CONTRAST CLINICAL INDICATION: Hypoxic respiratory failure TECHNIQUE: Helically acquired angiography images were obtained of the chest without and with intravenous contrast. This CT exam was performed using one or more of the following dose reduction techniques: automated exposure control, adjustment of the mA and/or kV according to patient size, and/or use of iterative reconstruction technique. This report was created using [employer] report generation technology. MIP reconstructed images were created and reviewed. CONTRAST: 100 cc of Isovue-370 IV. RADIATION DOSE: CTDIvol = 15.45 mGy, DLP = 393.61 mGy-cm. COMPARISON: None. FINDINGS: PULMONARY ARTERIES: Unremarkable. Normal in caliber. No evidence of pulmonary embolism. AORTA: Unremarkable. Normal in caliber. No evidence of dissection. GREAT VESSELS OF AORTIC ARCH: Unremarkable. Normal in caliber. No evidence of dissection. LUNGS AND PLEURAL SPACES: Moderate atelectasis bilateral lower lobes. No mass. No pleural effusion or thickening. No pneumothorax. HEART: Unremarkable. Heart size is normal. No pericardial effusion. No signs of right heart strain, ratio of right ventricle to left ventricle measures less than 1. MEDIASTINUM: Unremarkable. No mediastinal or hilar adenopathy. Esophagus is unremarkable. No hiatal hernia. THYROID: Unremarkable. No thyroid lesions. BONES/JOINTS: Dextroscoliosis. No suspicious lytic or blastic abnormality. CT/CTA Chest W/WO Contrast IMPRESSION: 1. Moderate atelectasis bilateral lower lobes. 2. No pulmonary embolism or dissection. 3. Dextroscoliosis. Electronically Signed: Nacho Scruggs MD at 5:36 EST ,
--- NOTE | 2022-09-08 06:08 | PCM.HP.STD ---
HPI - General General Date of Admission: 09/08/22 Date of Service: 09/08/22 Chief Complaint: Fever with hypoxia HPI Narrative FRANCIE MOLINA, is a 67 F who presents to the emergency room from a prison due to hypoxia and febrile illness. 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 She denies chest pain and/or nausea and vomiting. She does have a reported fever of 104 at the prison for which she received Tylenol and is currently afebrile. COVID-19 testing is positive. She is requiring 2 L nasal cannula oxygen to maintain her oxygen saturations above 90%. She received a dose of Decadron in the emergency room and was put in isolation. Chest x-ray reveals lower lobe atelectasis and CT angiogram of the chest was negative for pulmonary embolism. She will be admitted for further management of her COVID-19 infection. FORMERLY [facility], [facility] Medical History (Updated 09/08/22 @ 06:[address] Wojciech Hodge MD) Bladder disease COPD (chronic obstructive pulmonary disease) Depression Former smoker Gastric reflux History of atrial fibrillation History of deviated nasal septum History of edema History of stress test History of ulceration Hypertension Multiple sclerosis Neurogenic bladder Suprapubic catheter Urinary retention Urinary tract infection Home Medications Aspercreme (lidocaine) 4 % transdermal PRN PRN Pain 03/10/21 [History Last Taken Unknown] acetaminophen 500 mg tablet 1,000 mg PO Q6H PRN Pain 03/10/21 [History Last Taken Unknown] ascorbic acid (vitamin C) 500 mg tablet (Vitamin C) 500 mg PO BID 03/10/21 [History Last Taken Unknown] aspirin 81 mg tablet,delayed release 81 mg PO DAILY 03/10/21 [History Last Taken Unknown] atorvastatin 40 mg tablet 40 mg PO QHS 03/10/21 [History Last Taken Unknown] baclofen 20 mg tablet 20 mg PO TID 03/10/21 [History Last Taken 03/25/21] bisacodyl 10 mg rectal suppository 10 mg MS DAILY PRN Constipation 03/10/21 [History Last Taken Unknown] calcium carbonate 600 mg-vitamin D3 10 mcg (400 unit) tablet (Calcium 600 + D(3)) 1 tab PO DAILY 03/10/21 [History Last Taken Unknown] camphor-menthol 0.2 %-3.5 % topical gel 1 applic topical DAILY PRN Pain 03/10/21 [History Last Taken Unknown] cholecalciferol (vitamin D3) 50 mcg (2,000 unit) capsule (Vitamin D3) 50 mcg PO DAILY 03/10/21 [History Last Taken Unknown] cranberry 400 mg capsule 400 mg PO BID 03/10/21 [History Last Taken Unknown] cyanocobalamin (vitamin B-12) 1,000 mcg capsule 1,000 mcg PO DAILY 03/10/21 [History Last Taken Unknown] cyclobenzaprine 10 mg tablet 10 mg PO TID PRN Muscle Spasm 03/10/21 [History Last Taken Unknown] dextromethorphan-guaifenesin 10 mg-100 mg/5 mL oral syrup 10 ml PO Q4H PRN Cough 03/10/21 [History Last Taken Unknown] docusate sodium 100 mg capsule (Colace) 100 mg PO DAILY PRN Constipation 03/10/21 [History Last Taken Unknown] famotidine 20 mg tablet 20 mg PO QHS 03/10/21 [History Last Taken Unknown] gabapentin 400 mg tablet 400 mg PO BID 03/10/21 [History Last Taken 03/25/21] guaifenesin 600 mg tablet, extended release 12 hr (Mucinex) 600 mg PO Q12H PRN Congestion 03/10/21 [History Last Taken Unknown] hydrocodone-acetaminophen 5-325mg 5mg-325mg 1 tab PO Q6H PRN Pain 03/10/21 [History Last Taken Unknown] ibuprofen 400 mg tablet 400 mg PO Q8H PRN Pain 03/10/21 [History Last Taken Unknown] ketoconazole 2 % shampoo 1 applic topical Q14D 03/10/21 [History Last Taken Unknown] loratadine 10 mg capsule 10 mg PO DAILY 03/10/21 [History Last Taken Unknown] magnesium citrate (Citrate of Magnesia oral) 150 ml PO DAILY PRN Constipation 03/10/21 [History Last Taken Unknown] magnesium hydroxide 400 mg/5 mL oral suspension (Milk of Magnesia) 30 ml PO DAILY PRN Constipation 03/10/21 [History Last Taken Unknown] mineral oil 118 ml MS DAILY PRN Constipation 03/10/21 [History Last Taken Unknown] multivitamin 1 cap PO DAILY 03/10/21 [History Last Taken Unknown] ondansetron HCl 4 mg tablet (Zofran) 4 mg PO Q8H PRN Nausea 03/10/21 [History Last Taken Unknown] polyethylene glycol 3350 17 gram oral powder packet (Miralax) 17 g PO QODAY 03/10/21 [History Last Taken Unknown] pyridoxine (vitamin B6) 200 mg tablet 200 mg PO DAILY 03/10/21 [History Last Taken Unknown] salt moisturizing solution no1 1 spray intranasal DAILY PRN dry nares 03/10/21 [History Last Taken Unknown] sennosides 8.6 mg-docusate sodium 50 mg tablet (Senexon-S) 1 tab-cap PO DAILY PRN Constipation 03/10/21 [History Last Taken Unknown] vitamin E 268 mg (400 unit) capsule 400 unit PO DAILY 03/10/21 [History Last Taken Unknown] zinc 50 mg capsule 50 mg PO DAILY 03/10/21 [History Last Taken Unknown] zinc oxide 20 % topical ointment 1 applic topical TID 03/10/21 [History Last Taken Unknown] montelukast 10 mg tablet (Singulair) 10 mg PO QHS 09/08/22 [History Last Taken Unknown] omeprazole 20 mg capsule,delayed release 20 mg PO DAILY 09/08/22 [History Last Taken Unknown] Allergy/AdvReac Type Severity Reaction Status Date / Time ciprofloxacin [From Cipro] Allergy PT UNSURE Verified 09/08/22 04:23 OF REACTION nadolol Allergy PT UNSURE Verified 09/08/22 04:23 OF REACTION Penicillins Allergy PT UNSURE Verified 09/08/22 04:23 OF REACTION pregabalin Allergy PT UNSURE Verified 09/08/22 04:23 OF REACTION Surgical History S/P percutaneous endoscopic gastrostomy (PEG) tube placement Social History Smoking Status: Former smoker Vital Signs Vital Signs Vital Signs: 09/08/22 03:54 09/08/22 04:01 09/08/22 04:02 Temperature 102.3 F H 102.3 F H Temperature Source Oral Oral Pulse Rate 122 H 122 H Respiratory Rate 21 H 21 H Respiratory Effort Normal Non-Labored Respiratory Pattern Normal Blood Pressure 109/57 L 109/57 L Blood Pressure Mean 74 74 Pulse Ox 87 87 Oxygen Delivery Method Room Air Room Air Oxygen Flow Rate (L/min) 09/08/22 04:05 09/08/22 05:25 Temperature 99.1 F Temperature Source Oral Pulse Rate 99 Respiratory Rate 15 Respiratory Effort Respiratory Pattern Blood Pressure 93/49 L Blood Pressure Mean 63 Pulse Ox 94 96 Oxygen Delivery Method Nasal Cannula Nasal Cannula Oxygen Flow Rate (L/min) 2 2 Weight Weight: 182 lb 1.629 oz Body Mass Index (BMI) 29.4 Physical Exam Const alert and no apparent distress HEENT normocephalic and head/scalp atraumatic Eyes PERRL Neck no lymphadenopathy Lymph Lymphatic: no lymphadenopathy noted Resp Auscultation: diminished lung sounds bilateral; Negative for rales, rhonchi or wheezes Cardio regular rate, regular rhythm, S1 normal heart sound, S2 normal heart sound and no murmurs GI normal to inspection, nondistended, normoactive bowel sounds Extremity normal capillary refill Skin General Skin Exam: no breakdown Neuro no focal motor deficits and no sensory deficits noted Speech: speech abnormal Details: Positive for garbled Psych Psych Narrative: Unable to assess Results Lab / Micro Data Result Diagrams: 09/08/22 04:08 09/08/22 04:08 Labs: Laboratory Results - last 24 hr 09/08/22 04:08: WBC 8.9, RBC 3.94 L, Hgb 11.4 L, Hct 36.0 L, MCV 91.4, MCH 28.9, MCHC 31.7 L, RDW Std Deviation 50.0 H, RDW Coeff of Joshua 14.8 H, Plt Count 224, MPV 10.0, Immature Gran % (Auto) 0.700, Neut % (Auto) 77.9 H, Lymph % (Auto) 8.8 L, Harney % (Auto) 12.3 H, Eos % (Auto) 0.1, Baso % (Auto) 0.2, Absolute Neuts (auto) 7.0, Absolute Lymphs (auto) 0.79 L, Nucleated RBC % 0 09/08/22 04:08: PT 14.1, INR 1.1, APTT 30.5, D-Dimer Quant (PE/DVT) 0.68 H* 09/08/22 04:08: Sodium 139, Potassium 3.4 L, Chloride 107, Carbon Dioxide 25.0, Anion Gap 7, BUN 18, Creatinine 0.79, Estim Creat Clear Calc 51.11, Est GFR (MDRD) Af Amer 93, Est GFR (MDRD) Non-Af 77, BUN/Creatinine Ratio 22.7 H, Glucose 156 H, Calcium 8.4 L, Total Bilirubin 0.30, AST 31, ALT 52, Alkaline Phosphatase 98, Troponin I High Sens 12, Total Protein 6.6, Albumin 3.0 L, Globulin 3.6, Albumin/Globulin Ratio 0.8 L 09/08/22 04:08: Lactic Acid 1.9 Micro: Microbiology 09/08/22 04:05 Nasal Secretion SARS-CoV-2 & FLU Antigen (Rapid) - Final SARS-CoV-2 (COVID 19) Radiology Impression Chest X-Ray 09/08/22 04:20 IMPRESSION: 1. Low lung volumes limit the exam. No consolidations. 2. No acute cardiopulmonary abnormality. 3. Marked dextroscoliosis. Electronically Signed: Nacho Scruggs MD at 4:33 EST , Chest CTA 09/08/22 04:48 IMPRESSION: 1. Moderate atelectasis bilateral lower lobes. 2. No pulmonary embolism or dissection. 3. Dextroscoliosis. Electronically Signed: Nacho Scruggs MD at 5:36 EST , Assessment & Plan Assessment/Plan (1) COVID-19: (2) Hypoxia: (3) Multiple sclerosis: (4) History of atrial fibrillation: (5) Depression: (6) COPD (chronic obstructive pulmonary disease): PLAN: Plan 1. COVID-19 infection with hypoxia?admit patient to general medical floor continue droplet isolation, initiate Decadron treatment with supplemental oxygen support and monitor for progression 2. History of COPD?continue routine home medications including inhalers 3. Depression?continue routine home medications 4. History of atrial fibrillation we will monitor patient 5. Multiple sclerosis patient has been a Brigitte lift since 2011 cording to prison records 6. DVT prophylaxis?low molecular weight heparin Charges/Coding Visit Charges Inpatient E&M: 97918 Init Hosp L3
--- NOTE | 2022-09-08 06:44 | ED.RN ---
REPORT CALLED TO RUTH REGARDING PT ADMISSION STATUS
--- NOTE | 2022-09-08 06:47 | NURSING ---
med surg gauri olmos hypoxia
--- NOTE | 2022-09-08 06:48 | NURSING ---
MS-ED 4
--- NOTE | 2022-09-08 06:57 | PCM.HOSP.N ---
Hospitalist Note Patient is a 67-year-old female who presented from nursing facility due to hypoxia and febrile illness. Patient resides at a local prison. She was reported to have a fever of 104 degrees for which she was given Tylenol prior to presentation but was afebrile at the time of admission. Her COVID-19 rapid the emergency department was positive and she was requiring 2 L of nasal cannula to maintain oxygen saturations above 90%. A CTA of the chest was performed that showed lower lobe atelectasis, dextroscoliosis, and no PE or dissection. No significant groundglass infiltrates were noted either. Current vital signs show a temperature of 99 degrees, blood pressure of 92/60, heart rate of 92, respiratory rate of 16, oxygen saturation of 95% on 2 L nasal cannula. Her CBC this morning is overall unremarkable. Her chemistry panel shows mild hypokalemia for which she was given 40 mill equivalents p.o. potassium. Liver enzymes are normal and a procalcitonin is pending. I have added on a CPK given her oxygen requirements in case she were to worsen and would require consideration for baricitinib. Blood urine and sputum cultures have been ordered. Strep pneumo and Legionella antigens are pending however I suspect her febrile illness is all related to her COVID-19 infection. She currently is being boarded in the emergency department pending open bed availability on the floor. I have added remdesivir to her Decadron and she will require daily laboratory monitoring for renal function and liver function while on remdesivir. I have added incentive spirometry and Acapella to help promote deep breathing and hopefully improve the atelectasis that is present currently on imaging.
[2022-09-08 07:36] LABS: Procalcitonin 0.09 ng/mL (0.00-0.09)
--- NOTE | 2022-09-08 10:50 | CASEMGMT ---
Addendum entered by Sandra Rawls 09/08/22 13:54: Amber from [facility] called. Patient is intermediate LOC at the facility. She can return on intermediate LOC as no concern regarding bed hold days. Sandra MARCUS Original Note: DEANNA HUERTA met with patient and patient's son, Wojciech. Patient has been at [facility] for 1 1/2 years and voiced that she wishes to return to the [facility]. Patient and son voiced that they want patient to return to [facility] when medically ready for discharge. Son inquired about call light for patient due to her MS and also help with feeding for patient due to her MS. DEANNA spoke to OVI Lam who is aware of the issues with patient and her eating and call light. DEANNA called Alannah at [facility]. Alannah said that when patient is medically ready she can return to the [facility]. DEANNA inquired about any issues with bed hold days and Alannah left message for the certified social workers in health care to call this magnetic tape typewriter operator. Plan: Return to [facility] at discharge Sandra BLOUNT
[2022-09-08] MEDS: Enoxaparin 40 MG/0.4 ML Syringe SC (10:56)
[2022-09-08] MEDS: Multivitamins,Therapeutic Tablet 1 TABLET PO (10:56)
[2022-09-08] MEDS: Aspirin E.C. 81 MG Tablet PO (10:56)
[2022-09-08] MEDS: Ascorbic Acid 500 MG Tablet PO ×2 (10:56→20:10)
[2022-09-08] MEDS: Cholecalciferol (VIT D3) 25 MCG TABLET (1,000 UNITS) 50 MCG PO (10:56)
[2022-09-08] MEDS: Cyanocobalamin 500 MCG Tablet 1000 MCG PO (10:56)
[2022-09-08] MEDS: Pantoprazole Sodium 20 MG Tablet PO (10:57)
[2022-09-08] MEDS: Calcium Carb/Vitamin D 1 TABLET Tablet PO (10:57)
[2022-09-08] MEDS: Loratadine 10 MG Tablet PO (10:57)
[2022-09-08] MEDS: Potassium Chloride Oral Tablet 20 MEQ 40 MEQ PO (13:34)
[2022-09-08] MEDS: Gabapentin 400 MG Capsule PO ×2 (13:34→20:10)
[2022-09-08] MEDS: Baclofen 10 MG Tablet 20 MG PO ×2 (13:38→20:10)
[2022-09-08 14:12] LABS: Mucous, Urine 0 SEEN /hpf (<or=2+)
[2022-09-08 14:28] LABS: Color, Urine Yellow (Yellow); Glucose, Dipstick Normal (Normal); Ketone-Dipstick Negative (Negative); Leukocyte Esterase-Dipstick 100 /ul (Negative); Nitrite-Dipstick Positive (Negative); Occult Blood-Urine 10 /ul (Negative); Protein-Dipstick Negative (Negative); Specific Gravity, Urine 1.005 (1.002-1.030); Urine Bilirubin Dipstick Negative (Negative); Urine Clarity Sl. Cloudy (Clear); Urine Urobilinogen Normal (Normal)
[2022-09-08 14:42] LABS: Amorphous Sediment 2+; Bacteria 2+ /hpf (None Seen); Red Blood Cells-Urine 0-5 SEEN /hpf (0-5); Squamous Epithelial Cells - UA 0-5 SEEN /hpf (5-10); White Blood Cells 10-25 SEEN /hpf (0-5)
[2022-09-08] MEDS: Famotidine 20 MG Tablet PO (20:10)
[2022-09-08] MEDS: Atorvastatin Calcium 40 MG Tablet PO (20:11)
[2022-09-08] MEDS: Montelukast 10 MG Tablet PO (20:11)
[2022-09-09] VITALS (9 sets, daily range): BP systolic 101–127; BP diastolic 57–65; PULSE 55–66; RESP 16–18; TEMP 36.2–37.1; O2SAT 94–100
[2022-09-09 05:49] LABS: Absolute Lymphocyte Count 1.76 X10^3/uL (0.83-4.51); Absolute Neutrophil Count 4.8 X10^3/uL (2.0-7.7); Basophil# 0.01 X10^3/uL; Basophil% 0.1 % (0-1); Hematocrit 36.8 % (37-47); Hemoglobin 11.3 g/dL (12.0-15.0); Lymphocyte # 1.76 X10^3/ul (0.83-4.51); Lymphocyte % 21.9 % (19-41); Mean Corp Hgb Conc 30.7 g/dL (32-36); Mean Corpuscular Volume 94.4 fL (81-99); Mean Platelet Vol. 10.2 fl (6.2-12.0); Monocyte# 1.38 X10^3/uL; Monocyte% 17.2 % (0-10); NRBC Flagged by Analyzer 0 % (0-5); Neutrophil # 4.82 X10^3/uL (2.7-7.7); Neutrophil % 60.2 % (47-70); Platelet Count 223 K/mm3 (150-450); RBC Distribution Width CV 15.2 % (11.6-14.6); RBC Distribution Width SD 52.6 fl (35.1-43.9)
[2022-09-09 06:26] LABS: ALB/GLOB Ratio 0.8 RATIO (0.9-2.4); AST(SGOT) 24 U/L (15-37); Alanine Aminotransfer ALT/SGPT 44 U/L (13-56); Albumin, Serum 2.9 g/dL (3.2-5.0); Alkaline Phosphatase 86 U/L (45-117); Anion Gap 4 (5-15); BUN 15 mg/dL (7-18); Calcium,Total 9.1 mg/dL (8.5-10.1); Chloride 115 mmol/L (98-107); Creatinine, Serum 0.62 mg/dL (0.55-1.02); EST Glomerular Filtration Rate 101 mL/min (>60); Est Glom Filt Rate - Afr Amer 122 mL/min (>60); Estimated Creatinine Clearance 43.18 ml/min; Globulin 3.5 g/dL (2.2-4.2); Glucose 101 mg/dL (74-106); Protein, Total 6.4 g/dL (6.4-8.2); Sodium Level 144 mmol/L (136-145)
[2022-09-09] MEDS: Gabapentin 400 MG Capsule PO (11:02)
[2022-09-09] MEDS: Baclofen 10 MG Tablet 20 MG PO (11:03)
[2022-09-09] MEDS: Calcium Carb/Vitamin D 1 TABLET Tablet PO (11:07)
[2022-09-09] MEDS: Enoxaparin 40 MG/0.4 ML Syringe SC (11:07)
[2022-09-09] MEDS: Pantoprazole Sodium 20 MG Tablet PO (11:07)
[2022-09-09] MEDS: Cholecalciferol (VIT D3) 25 MCG TABLET (1,000 UNITS) 50 MCG PO (11:07)
[2022-09-09] MEDS: Loratadine 10 MG Tablet PO (11:07)
[2022-09-09] MEDS: Multivitamins,Therapeutic Tablet 1 TABLET PO (11:08)
[2022-09-09] MEDS: Cyanocobalamin 500 MCG Tablet 1000 MCG PO (11:08)
[2022-09-09] MEDS: Aspirin E.C. 81 MG Tablet PO (11:08)
[2022-09-09] MEDS: dexAMETHasone 10 MG/ML Vial 6 MG IV (11:08)
[2022-09-09] MEDS: Ascorbic Acid 500 MG Tablet PO (11:08)
--- NOTE | 2022-09-09 12:26 | PCM.TXEXTCAR ---
Diet Diet Order/Speech Therapy: 09/08/22 08:06 Diet: Regular - General Food consistency:: Regular Liquid Consistency:: Regular/Thin Routine Orders/Code Status Routine Lab Work: CBC and BMP Code Status: Full Code Wound(s) COCCYX: Wound Type: Pressure Injury Therapies Physical Therapy: Eval and Treat Occupational Therapy: Eval and Treat Problem/Diagnosis (1) COVID-19: Status: Acute Code(s): U07.1 - COVID-19 (2) Hypoxia: Status: Acute Code(s): R09.02 - Hypoxemia (3) Multiple sclerosis: Status: Acute Code(s): G35 - Multiple sclerosis Comment: since 2011/shailesh lift (4) History of atrial fibrillation: Status: Acute Code(s): Z86.79 - Personal history of other diseases of the circulatory system Comment: hx of noted from fdc papers (5) Depression: Status: Acute Code(s): F32.9 - Major depressive disorder, single episode, unspecified (6) COPD (chronic obstructive pulmonary disease): Status: Chronic Code(s): J44.9 - Chronic obstructive pulmonary disease, unspecified Comment: hx of/resident denies per fdc note Allergies/Procedures Done in Hospital Allergies ciprofloxacin [From Cipro] Allergy (Verified 09/08/22 04:23) PT UNSURE OF REACTION nadolol Allergy (Verified 09/08/22 04:23) PT UNSURE OF REACTION Penicillins Allergy (Verified 09/08/22 04:23) PT UNSURE OF REACTION pregabalin Allergy (Verified 09/08/22 04:23) PT UNSURE OF REACTION Procedures: None Type of Care/Length of Stay Estimated LOS: Convalescent Care Less Than 30 days Type of Care Needed: Skilled Rehab Potential: Good Prognosis: Good Additional Orders/Day of Discharge Day of Discharge: 09/09/22 Discharge Plan Admission Admit Date/Time: 09/08/22 06:17 Attending Provider: Maco Blackmon Primary Care Provider: Portillo Trujillo Consulting Providers: Wojciech Hodge ; Gail Houston Discharge Orders/Prescriptions Prescriptions: New dexamethasone 2 mg tablet 6 mg PO DAILY 9 Days Qty: 27 0RF Continued Aspercreme (lidocaine) 4 % transdermal PRN PRN (Reason: Pain) atorvastatin 40 mg Tablet 40 mg PO QHS aspirin 81 mg Tablet,Delayed Release (Dr/Ec) 81 mg PO DAILY acetaminophen 500 mg Tablet 1,000 mg PO Q6H PRN (Reason: Pain) baclofen 20 mg Tablet 20 mg PO TID camphor-menthol 0.2-3.5 % Gel 1 applic TOPICAL DAILY PRN (Reason: Pain) cyclobenzaprine 10 mg Tablet 10 mg PO TID PRN (Reason: Muscle Spasm) ketoconazole 2 % Shampoo 1 applic TOPICAL Q14D polyethylene glycol 3350 [Miralax] 17 gram Powder In Packet 17 g PO QODAY hydrocodone-acetaminophen 5-325 mg Tablet 1 tab PO Q6H PRN (Reason: Pain) ondansetron HCl [Zofran] 4 mg Tablet 4 mg PO Q8H PRN (Reason: Nausea) sennosides-docusate sodium [Senexon-S] 8.6-50 mg Tablet 1 tab-cap PO DAILY PRN (Reason: Constipation) dextromethorphan-guaifenesin 10-100 mg/5 mL Syrup 10 ml PO Q4H PRN (Reason: Cough) zinc oxide 20 % Ointment 1 applic TOPICAL TID pyridoxine (vitamin B6) 200 mg Tablet 200 mg PO DAILY mineral oil Enema 118 ml [place] DAILY PRN (Reason: Constipation) famotidine 20 mg Tablet 20 mg PO QHS magnesium hydroxide [Milk of Magnesia] 400 mg/5 mL Suspension 30 ml PO DAILY PRN (Reason: Constipation) ascorbic acid (vitamin C) [Vitamin C] 500 mg Tablet 500 mg PO BID bisacodyl 10 mg Suppository 10 mg [place] DAILY PRN (Reason: Constipation) ibuprofen 400 mg Tablet 400 mg PO Q8H PRN (Reason: Pain) cranberry 400 mg Capsule 400 mg PO BID docusate sodium [Colace] 100 mg Capsule 100 mg PO DAILY PRN (Reason: Constipation) magnesium citrate [Citrate of Magnesia] Solution 150 ml PO DAILY PRN (Reason: Constipation) multivitamin Capsule 1 cap PO DAILY vitamin E 400 unit Capsule 400 unit PO DAILY zinc 50 mg Capsule 50 mg PO DAILY gabapentin 400 mg Tablet 400 mg PO BID calcium carbonate-vitamin D3 [Calcium 600 + D(3)] 600 mg(1,500mg) -400 unit Tablet 1 tab PO DAILY cholecalciferol (vitamin D3) [Vitamin D3] 50 mcg (2,000 unit) Capsule 50 mcg PO DAILY salt moisturizing solution no1 Mist 1 spray INTRANASAL DAILY PRN (Reason: dry nares) loratadine 10 mg Capsule 10 mg PO DAILY guaifenesin [Mucinex] 600 mg Tablet Extended Release 12hr 600 mg PO Q12H PRN (Reason: Congestion) cyanocobalamin (vitamin B-12) 1,000 mcg Capsule 1,000 mcg PO DAILY omeprazole 20 mg Capsule,Delayed Release(Dr/Ec) 20 mg PO DAILY montelukast [Singulair] 10 mg Tablet 10 mg PO QHS Referrals / Follow Up: Portillo Trujillo DO [Primary Care Provider] - Disposition Disposition (needs filled in before D/C Order can be placed): [facility] Facility
--- NOTE | 2022-09-09 17:04 | PCM.DC.SUM ---
Providers Date of Admission: 09/08/22 Primary Care Physician: Dr. Portillo Trujillo DO Reason For Visit: COVID 19 INFECTION WITH HYPOXIA Diagnosis Discharge Diagnosis (1) COVID-19: Status: Acute Code(s): U07.1 - COVID-19 (2) Hypoxia: Status: Acute Code(s): R09.02 - Hypoxemia (3) Multiple sclerosis: Status: Acute Code(s): G35 - Multiple sclerosis (4) History of atrial fibrillation: Status: Acute Code(s): Z86.79 - Personal history of other diseases of the circulatory system (5) Depression: Status: Acute Code(s): F32.9 - Major depressive disorder, single episode, unspecified (6) COPD (chronic obstructive pulmonary disease): Status: Chronic Code(s): J44.9 - Chronic obstructive pulmonary disease, unspecified Medications at Discharge Home Medications Aspercreme (lidocaine) 4 % transdermal PRN PRN Pain 03/10/21 acetaminophen 500 mg tablet 1,000 mg PO Q6H PRN Pain 03/10/21 ascorbic acid (vitamin C) 500 mg tablet (Vitamin C) 500 mg PO BID 03/10/21 aspirin 81 mg tablet,delayed release 81 mg PO DAILY 03/10/21 atorvastatin 40 mg tablet 40 mg PO QHS 03/10/21 baclofen 20 mg tablet 20 mg PO TID 03/10/21 bisacodyl 10 mg rectal suppository 10 mg DC DAILY PRN Constipation 03/10/21 calcium carbonate 600 mg-vitamin D3 10 mcg (400 unit) tablet (Calcium 600 + D(3)) 1 tab PO DAILY 03/10/21 camphor-menthol 0.2 %-3.5 % topical gel 1 applic topical DAILY PRN Pain 03/10/21 cholecalciferol (vitamin D3) 50 mcg (2,000 unit) capsule (Vitamin D3) 50 mcg PO DAILY 03/10/21 cranberry 400 mg capsule 400 mg PO BID 03/10/21 cyanocobalamin (vitamin B-12) 1,000 mcg capsule 1,000 mcg PO DAILY 03/10/21 cyclobenzaprine 10 mg tablet 10 mg PO TID PRN Muscle Spasm 03/10/21 dextromethorphan-guaifenesin 10 mg-100 mg/5 mL oral syrup 10 ml PO Q4H PRN Cough 03/10/21 docusate sodium 100 mg capsule (Colace) 100 mg PO DAILY PRN Constipation 03/10/21 famotidine 20 mg tablet 20 mg PO QHS 03/10/21 gabapentin 400 mg tablet 400 mg PO BID 03/10/21 guaifenesin 600 mg tablet, extended release 12 hr (Mucinex) 600 mg PO Q12H PRN Congestion 03/10/21 hydrocodone-acetaminophen 5-325mg 5mg-325mg 1 tab PO Q6H PRN Pain 03/10/21 ibuprofen 400 mg tablet 400 mg PO Q8H PRN Pain 03/10/21 ketoconazole 2 % shampoo 1 applic topical Q14D 03/10/21 loratadine 10 mg capsule 10 mg PO DAILY 03/10/21 magnesium citrate (Citrate of Magnesia oral) 150 ml PO DAILY PRN Constipation 03/10/21 magnesium hydroxide 400 mg/5 mL oral suspension (Milk of Magnesia) 30 ml PO DAILY PRN Constipation 03/10/21 mineral oil 118 ml DC DAILY PRN Constipation 03/10/21 multivitamin 1 cap PO DAILY 03/10/21 ondansetron HCl 4 mg tablet (Zofran) 4 mg PO Q8H PRN Nausea 03/10/21 polyethylene glycol 3350 17 gram oral powder packet (Miralax) 17 g PO QODAY 03/10/21 pyridoxine (vitamin B6) 200 mg tablet 200 mg PO DAILY 03/10/21 salt moisturizing solution no1 1 spray intranasal DAILY PRN dry nares 03/10/21 sennosides 8.6 mg-docusate sodium 50 mg tablet (Senexon-S) 1 tab-cap PO DAILY PRN Constipation 03/10/21 vitamin E 268 mg (400 unit) capsule 400 unit PO DAILY 03/10/21 zinc 50 mg capsule 50 mg PO DAILY 03/10/21 zinc oxide 20 % topical ointment 1 applic topical TID 03/10/21 montelukast 10 mg tablet (Singulair) 10 mg PO QHS 09/08/22 omeprazole 20 mg capsule,delayed release 20 mg PO DAILY 09/08/22 dexamethasone 2 mg tablet 6 mg PO DAILY 9 days #27 tabs 09/09/22 Hospital Course Operations None Procedures None Summary of Care Provided Minutes Spent on Discharge: 42 Hospital Course: Per HPI: FRANCIE SAUCEDADUONG, is a 67 F who presents to the emergency room from a senior care due to hypoxia and febrile illness.? 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 She denies chest pain and/or nausea and vomiting.? She does have a reported fever of 104 at the senior care for which she received Tylenol and is currently afebrile.? COVID-19 testing is positive.? She is requiring 2 L nasal cannula oxygen to maintain her oxygen saturations above 90%.? She received a dose of Decadron in the emergency room and was put in isolation.? Chest x-ray reveals lower lobe atelectasis and CT angiogram of the chest was negative for pulmonary embolism.? She will be admitted for further management of her COVID-19 infection. Hospital Course: 1. Acute hypoxia secondary to COVID-19?67-year-old female presents from the senior care secondary to hypoxia. She was febrile to 104 at the senior care and with her oxygen requirement she was sent in for evaluation. She states symptoms initially started with a sore throat on Wednesday but not get worse until yesterday. She tested positive for COVID-19 here in the hospital and she was started on remdesivir and Decadron. She will complete 9 more days of Decadron to complete a total 10 days of the steroid. She did receive 2 doses of remdesivir however on the day of discharge she was not requiring any oxygen and she was maintaining 95% on room air. She is paraplegic from her MS and is unable to walk so she did not meet any oxygen criteria at rest prior to discharge. 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 I discussed with her the plan for discharge back to her senior care today given her significant improvement due to appropriate treatment, and she expressed understanding of the risk benefits of going back to the senior care and would like to go today. D-dimer was slightly elevated at 2.68 her age is 67 so makes it slightly positive, CTA of her chest was negative for PE. 2. History of COPD, depression, history of A. fib, multiple sclerosis are all chronic medical conditions which complicate her care her home medications were continued where appropriate. Of note she was tested for UTI on the UA which was slightly positive with 100 leukocyte esterase some white blood cells as well as amorphous sediment and urine bacteria. Urine culture is preliminary positive for Enterococcus sensitivities are pending. She has not been giving any antibiotics while she is been here and she does not have a leukocytosis and no longer a fever despite no antibiotics therefore once the sensitivities come back this will be forwarded to her senior care so that way if she does develop any urinary symptoms in the next couple of days they would be able to start her on antibiotics. Prior to starting her on these antibiotics, I would recommend clarifying her reactions to penicillins and Cipro as these will most likely be the most appropriate in terms of treating a UTI if necessary. Physical Exam Narrative General: Alert, Oriented x3, Cooperative, No apparent distress HEENT: Atraumatic, PERRLA, EOMI, Normocephalic Oral: Moist Mucosa Neck: Supple, No JVD Lungs: Dished, Normal air movement, No rhonchi, No wheeze, No rales Cardiovascular: Regular rate, Regular Rhythm, Normal S1, Normal S2, No murmurs Abdomen: Soft, Non Tender, Non-Distended, No Hepato-splenomegaly Extremities: No edema, Capillary Refill Less than 3 Seconds Skin: No rashes, No breakdown Musculoskeletal: No Tenderness to Palpation of Joints or Extremities Neurological: Chronic lower extremity weakness from MS Psych/Mental Status: Normal Affect, Appropriate Weight / BMI Weight Weight: 184 lb 15.485 oz Body Mass Index (BMI) 33.3 ABG / Lab / Microbiology Data Result Diagrams: 09/09/22 05:35 09/09/22 05:35 Laboratory: Laboratory Results - last 24 hr 09/09/22 05:35: WBC 8.0, RBC 3.90 L, Hgb 11.3 L, Hct 36.8 L, MCV 94.4, MCH 29.0, MCHC 30.7 L, RDW Std Deviation 52.6 H, RDW Coeff of Joshua 15.2 H, Plt Count 223, MPV 10.2, Immature Gran % (Auto) 0.600, Neut % (Auto) 60.2, Lymph % (Auto) 21.9, Wood % (Auto) 17.2 H, Eos % (Auto) 0.0, Baso % (Auto) 0.1, Absolute Neuts (auto) 4.8, Absolute Lymphs (auto) 1.76, Nucleated RBC % 0 09/09/22 05:35: Sodium 144, Potassium 4.0, Chloride 115 H, Carbon Dioxide 25.0, Anion Gap 4 L, BUN 15, Creatinine 0.62, Estim Creat Clear Calc 43.18, Est GFR (MDRD) Af Amer 122, Est GFR (MDRD) Non-Af 101, BUN/Creatinine Ratio 24.0 H, Glucose 101, Calcium 9.1, Total Bilirubin 0.20, AST 24, ALT 44, Alkaline Phosphatase 86, Total Protein 6.4, Albumin 2.9 L, Globulin 3.5, Albumin/Globulin Ratio 0.8 L Microbiology: Microbiology 09/08/22 13:56 Urine, Clean Catch Urine Culture - Preliminary GPC Poss Enterococcus sp 09/08/22 13:56 Urine Catheter - [facility] Legionella Antigen - Final 09/08/22 13:56 Urine Catheter - [facility] Streptococcus pneumoniae Antigen (M - Final 09/08/22 04:05 Nasal Secretion SARS-CoV-2 & FLU Antigen (Rapid) - Final SARS-CoV-2 (COVID 19) Meaningful Use Info Meaningful Use Diagnoses (Choose all that apply): None applicable Discharge Plan Admission Admit Date/Time: 09/08/22 06:17 Attending Provider: Maco Blackmon Primary Care Provider: Portillo Trujillo Consulting Providers: Wojciech Hodge ; Gail Houston Discharge Orders/Prescriptions Prescriptions: New dexamethasone 2 mg tablet 6 mg PO DAILY 9 Days Qty: 27 0RF Continued Aspercreme (lidocaine) 4 % transdermal PRN PRN (Reason: Pain) atorvastatin 40 mg Tablet 40 mg PO QHS aspirin 81 mg Tablet,Delayed Release (Dr/Ec) 81 mg PO DAILY acetaminophen 500 mg Tablet 1,000 mg PO Q6H PRN (Reason: Pain) baclofen 20 mg Tablet 20 mg PO TID camphor-menthol 0.2-3.5 % Gel 1 applic TOPICAL DAILY PRN (Reason: Pain) cyclobenzaprine 10 mg Tablet 10 mg PO TID PRN (Reason: Muscle Spasm) ketoconazole 2 % Shampoo 1 applic TOPICAL Q14D polyethylene glycol 3350 [Miralax] 17 gram Powder In Packet 17 g PO QODAY hydrocodone-acetaminophen 5-325 mg Tablet 1 tab PO Q6H PRN (Reason: Pain) ondansetron HCl [Zofran] 4 mg Tablet 4 mg PO Q8H PRN (Reason: Nausea) sennosides-docusate sodium [Senexon-S] 8.6-50 mg Tablet 1 tab-cap PO DAILY PRN (Reason: Constipation) dextromethorphan-guaifenesin 10-100 mg/5 mL Syrup 10 ml PO Q4H PRN (Reason: Cough) zinc oxide 20 % Ointment 1 applic TOPICAL TID pyridoxine (vitamin B6) 200 mg Tablet 200 mg PO DAILY mineral oil Enema 118 ml DC DAILY PRN (Reason: Constipation) famotidine 20 mg Tablet 20 mg PO QHS magnesium hydroxide [Milk of Magnesia] 400 mg/5 mL Suspension 30 ml PO DAILY PRN (Reason: Constipation) ascorbic acid (vitamin C) [Vitamin C] 500 mg Tablet 500 mg PO BID bisacodyl 10 mg Suppository 10 mg DC DAILY PRN (Reason: Constipation) ibuprofen 400 mg Tablet 400 mg PO Q8H PRN (Reason: Pain) cranberry 400 mg Capsule 400 mg PO BID docusate sodium [Colace] 100 mg Capsule 100 mg PO DAILY PRN (Reason: Constipation) magnesium citrate [Citrate of Magnesia] Solution 150 ml PO DAILY PRN (Reason: Constipation) multivitamin Capsule 1 cap PO DAILY vitamin E 400 unit Capsule 400 unit PO DAILY zinc 50 mg Capsule 50 mg PO DAILY gabapentin 400 mg Tablet 400 mg PO BID calcium carbonate-vitamin D3 [Calcium 600 + D(3)] 600 mg(1,500mg) -400 unit Tablet 1 tab PO DAILY cholecalciferol (vitamin D3) [Vitamin D3] 50 mcg (2,000 unit) Capsule 50 mcg PO DAILY salt moisturizing solution no1 Mist 1 spray INTRANASAL DAILY PRN (Reason: dry nares) loratadine 10 mg Capsule 10 mg PO DAILY guaifenesin [Mucinex] 600 mg Tablet Extended Release 12hr 600 mg PO Q12H PRN (Reason: Congestion) cyanocobalamin (vitamin B-12) 1,000 mcg Capsule 1,000 mcg PO DAILY omeprazole 20 mg Capsule,Delayed Release(Dr/Ec) 20 mg PO DAILY montelukast [Singulair] 10 mg Tablet 10 mg PO QHS Referrals / Follow Up: Portillo Trujillo DO [Primary Care Provider] - Disposition Disposition (needs filled in before D/C Order can be placed): [facility] Charges/Coding Visit Charges Inpatient E&M: 03204 Disch Hosp
--- NOTE | 2022-09-09 19:18 | NURSING ---
Report called the Maci at the [facility] at this time.
[2022-09-10 01:31] VITALS: BP 126/64; PULSE 64; RESP 18; TEMP 36.4; O2SAT 97
== END 2022-09-10 01:30 | disposition skilled nursing facility (03) | DRG 178 ==
LOC: ED 04:33 → MS3 06:57
PROVIDERS: Internal Medicine; Admitting Provider Family Medicine; Emergency Provider Student in an Organized Health Care Education/Training Program; PCP Family Medicine; Visit Provider Family Medicine
DX: U07.1 COVID-19 (principal); G82.20 Paraplegia, unspecified; J44.9 Chronic obstructive pulmonary disease, unspecified; G35 Multiple sclerosis; E87.6 Hypokalemia; I10 Essential (primary) hypertension; F32.9 Major depressive disorder, single episode, unspecified; Z87.891 Personal history of nicotine dependence; Z79.82 Long term (current) use of aspirin; R09.02 Hypoxemia; Z86.79 Personal history of other diseases of the circulatory system
CPT/HCPCS: 36415; 71045; 71275; 80053; 81001; 83605; 84145; 84484; 85025; 85379; 85610; 85730; 86140; 87040; 87077; 87086; 87088; 87186; 87428; 87449; 93005; 94667; 94668; 99251; 99285; J7030; J7050; Q9967; A4216; G0463; J0248

== ENCOUNTER → 2022-09-15 | Outpatient (REF) | payer MEDICARE, MEDICAID, SELFPAY ==
[2022-09-15 10:35] LABS: Hematocrit 37.3 % (37-47); Mean Corp Hgb Conc 32.2 g/dL (32-36); Mean Corpuscular Hgb 29.8 pg (27.0-32.0); Mean Corpuscular Volume 92.6 fL (81-99); Mean Platelet Vol. 10.5 fl (6.2-12.0); Platelet Count 309 K/mm3 (150-450); RBC Distribution Width CV 15.5 % (11.6-14.6); RBC Distribution Width SD 53.1 fl (35.1-43.9); Red Blood Count 4.03 M/mm3 (4.2-5.4); White Blood Count 16.2 K/mm3 (4.4-11.0)
[2022-09-15 11:07] LABS: Anion Gap 9 (5-15); BUN 21 mg/dL (7-18); BUN/Creat Ratio 39.7 RATIO (10-20); Calcium,Total 8.5 mg/dL (8.5-10.1); Chloride 111 mmol/L (98-107); Creatinine, Serum 0.53 mg/dL (0.55-1.02); EST Glomerular Filtration Rate 122 mL/min (>60); Est Glom Filt Rate - Afr Amer 148 mL/min (>60); Glucose 73 mg/dL (74-106); Potassium 3.7 mmol/L (3.5-5.1); Sodium Level 142 mmol/L (136-145)
== END ==
LOC: OLS.ACH 04:00
PROVIDERS: PCP Family Medicine; Visit Provider Family Medicine
DX: U07.1 COVID-19 (principal)
CPT/HCPCS: 36415; 80048; 85027

== ENCOUNTER → 2022-09-22 | Outpatient (REF) | payer MEDICARE, MEDICAID, SELFPAY ==
[2022-09-22 09:23] LABS: Absolute Lymphocyte Count 2.92 X10^3/uL (0.83-4.51); Basophil# 0.02 X10^3/uL; Basophil% 0.2 % (0-1); Eosinophil# 0.13 X10^3/uL; Eosinophils% 1.3 % (0-5); Hematocrit 35.7 % (37-47); Hemoglobin 11.4 g/dL (12.0-15.0); Lymphocyte # 2.92 X10^3/ul (0.83-4.51); Lymphocyte % 29.7 % (19-41); Mean Corp Hgb Conc 31.9 g/dL (32-36); Mean Corpuscular Hgb 29.8 pg (27.0-32.0); Mean Corpuscular Volume 93.2 fL (81-99); Mean Platelet Vol. 10.6 fl (6.2-12.0); Monocyte# 0.75 X10^3/uL; Monocyte% 7.6 % (0-10); NRBC Flagged by Analyzer 0 % (0-5); Neutrophil # 5.99 X10^3/uL (2.7-7.7); Neutrophil % 60.9 % (47-70); Platelet Count 198 K/mm3 (150-450); RBC Distribution Width CV 15.9 % (11.6-14.6); RBC Distribution Width SD 54.6 fl (35.1-43.9); Red Blood Count 3.83 M/mm3 (4.2-5.4); White Blood Count 9.8 K/mm3 (4.4-11.0)
[2022-09-22 09:34] LABS: Cholesterol 132 mg/dL (200); High Density Lipoprotein 35 mg/dL; Triglycerides 202 mg/dL; Very Low Density Lipoprotein 40 mg/dL (5-40)
== END ==
LOC: OLS.ACH 04:00
PROVIDERS: PCP Internal Medicine; Referring Provider Internal Medicine; Visit Provider Internal Medicine
DX: G35 Multiple sclerosis (principal); E78.49 Other hyperlipidemia
CPT/HCPCS: 36415; 80061; 85025

== ENCOUNTER → 2022-10-27 | Outpatient (REF) | payer MEDICARE, MEDICAID, SELFPAY ==
[2022-10-27 09:39] LABS: Mucous, Urine 0 SEEN /hpf (<or=2+)
[2022-10-27 09:43] LABS: Hematocrit 36.8 % (37-47); Hemoglobin 11.7 g/dL (12.0-15.0); Mean Corp Hgb Conc 31.8 g/dL (32-36); Mean Corpuscular Hgb 29.1 pg (27.0-32.0); Mean Corpuscular Volume 91.5 fL (81-99); Mean Platelet Vol. 10.7 fl (6.2-12.0); Platelet Count 223 K/mm3 (150-450); RBC Distribution Width SD 51.2 fl (35.1-43.9); Red Blood Count 4.02 M/mm3 (4.2-5.4); White Blood Count 8.1 K/mm3 (4.4-11.0)
[2022-10-27 09:56] LABS: Color, Urine Yellow (Yellow); Glucose, Dipstick Normal (Normal); Ketone-Dipstick Negative (Negative); Leukocyte Esterase-Dipstick 25 /ul (Negative); Nitrite-Dipstick Negative (Negative); Occult Blood-Urine 250 /ul (Negative); Protein-Dipstick 30 mg/dl (Negative); Urine Bilirubin Dipstick Negative (Negative); Urine Clarity Sl. Cloudy (Clear); Urine Urobilinogen Normal (Normal)
[2022-10-27 10:08] LABS: Red Blood Cells-Urine 25-50 SEEN /hpf (0-5); Squamous Epithelial Cells - UA 0-5 SEEN /hpf (5-10); White Blood Cells 0-5 SEEN /hpf (0-5)
[2022-10-27 10:09] LABS: Bacteria RARE /hpf (None Seen)
== END ==
LOC: OLS.ACH 05:00
PROVIDERS: PCP Internal Medicine; Visit Provider Internal Medicine
DX: D50.8 Other iron deficiency anemias (principal); N39.0 Urinary tract infection, site not specified; Z43.6 Encounter for attention to other artificial openings of urinary tract
CPT/HCPCS: 36415; 81001; 85027; 87077; 87086; 87088; 87186

== ENCOUNTER → 2022-12-14 | Outpatient (REF) | payer MEDICARE, MEDICAID, SELFPAY ==
[2022-12-14 10:45] LABS: Absolute Lymphocyte Count 2.49 X10^3/uL (0.83-4.51); Absolute Neutrophil Count 3.5 X10^3/uL (2.0-7.7); Basophil# 0.05 X10^3/uL; Basophil% 0.7 % (0-1); Eosinophils% 1.5 % (0-5); Hematocrit 38.9 % (37-47); Hemoglobin 11.9 g/dL (12.0-15.0); Lymphocyte # 2.49 X10^3/ul (0.83-4.51); Lymphocyte % 36.5 % (19-41); Mean Corp Hgb Conc 30.6 g/dL (32-36); Mean Corpuscular Hgb 28.9 pg (27.0-32.0); Mean Corpuscular Volume 94.4 fL (81-99); Mean Platelet Vol. 10.8 fl (6.2-12.0); Monocyte% 10.3 % (0-10); NRBC Flagged by Analyzer 0 % (0-5); Neutrophil # 3.45 X10^3/uL (2.7-7.7); Neutrophil % 50.6 % (47-70); Platelet Count 230 K/mm3 (150-450); RBC Distribution Width CV 14.8 % (11.6-14.6); Red Blood Count 4.12 M/mm3 (4.2-5.4); White Blood Count 6.8 K/mm3 (4.4-11.0)
[2022-12-14 11:10] LABS: Cholesterol 126 mg/dL (200); High Density Lipoprotein 34 mg/dL; Triglycerides 244 mg/dL; Very Low Density Lipoprotein 49 mg/dL (5-40)
== END ==
LOC: OLS.ACH 04:00
PROVIDERS: PCP Internal Medicine; Referring Provider Internal Medicine; Visit Provider Internal Medicine
DX: D50.8 Other iron deficiency anemias (principal); E78.49 Other hyperlipidemia
CPT/HCPCS: 36415; 80061; 85025

== ENCOUNTER → 2023-01-06 | Outpatient (REF) | payer MEDICARE, MEDICAID, SELFPAY ==
[2023-01-07 04:07] LABS: Cancer Antigen 125 13.8 U/mL (0.0-38.1)
== END ==
LOC: OLS.ACH 05:48
PROVIDERS: PCP Internal Medicine; Visit Provider Internal Medicine
DX: C56.9 Malignant neoplasm of unspecified ovary (principal)
CPT/HCPCS: 36415; 86304

== ENCOUNTER → 2023-03-15 | Outpatient (REF) | payer MEDICARE, MEDICAID, SELFPAY ==
[2023-03-15 09:21] LABS: Absolute Lymphocyte Count 2.21 X10^3/uL (0.83-4.51); Absolute Neutrophil Count 4.9 X10^3/uL (2.0-7.7); Basophil# 0.04 X10^3/uL; Basophil% 0.5 % (0-1); Eosinophil# 0.14 X10^3/uL; Eosinophils% 1.7 % (0-5); Hematocrit 38.1 % (37-47); Hemoglobin 11.8 g/dL (12.0-15.0); Lymphocyte # 2.21 X10^3/ul (0.83-4.51); Lymphocyte % 27.5 % (19-41); Mean Corpuscular Hgb 29.1 pg (27.0-32.0); Mean Corpuscular Volume 93.8 fL (81-99); Mean Platelet Vol. 10.8 fl (6.2-12.0); Monocyte% 8.7 % (0-10); NRBC Flagged by Analyzer 0 % (0-5); Neutrophil # 4.93 X10^3/uL (2.7-7.7); Neutrophil % 61.2 % (47-70); Platelet Count 247 K/mm3 (150-450); RBC Distribution Width SD 52.6 fl (35.1-43.9); Red Blood Count 4.06 M/mm3 (4.2-5.4); White Blood Count 8.1 K/mm3 (4.4-11.0)
[2023-03-15 09:41] LABS: Cholesterol 105 mg/dL (200); High Density Lipoprotein 34 mg/dL; Prealbumin 23.4 mg/dL (20.0-40.0); Triglycerides 174 mg/dL; Very Low Density Lipoprotein 35 mg/dL (5-40)
== END ==
LOC: OLS.ACH 04:00
PROVIDERS: PCP Internal Medicine; Referring Provider Internal Medicine; Visit Provider Internal Medicine
DX: M99.84 Other biomechanical lesions of sacral region (principal); G35 Multiple sclerosis; I10 Essential (primary) hypertension; E78.49 Other hyperlipidemia
CPT/HCPCS: 36415; 80061; 84134; 85025

== ENCOUNTER → 2023-06-07 | Outpatient (REF) | payer MEDICARE, MEDICAID, SELFPAY ==
[2023-06-07 08:38] LABS: Absolute Lymphocyte Count 2.26 X10^3/uL (0.83-4.51); Absolute Neutrophil Count 2.7 X10^3/uL (2.0-7.7); Basophil# 0.06 X10^3/uL; Eosinophil# 0.25 X10^3/uL; Hemoglobin 11.4 g/dL (12.0-15.0); Lymphocyte # 2.26 X10^3/ul (0.83-4.51); Lymphocyte % 36.3 % (19-41); Mean Corp Hgb Conc 30.8 g/dL (32-36); Mean Corpuscular Volume 94.1 fL (81-99); Mean Platelet Vol. 10.7 fl (6.2-12.0); Monocyte% 14.4 % (0-10); NRBC Flagged by Analyzer 0 % (0-5); Neutrophil # 2.73 X10^3/uL (2.7-7.7); Neutrophil % 43.8 % (47-70); Platelet Count 234 K/mm3 (150-450); RBC Distribution Width CV 14.8 % (11.6-14.6); Red Blood Count 3.93 M/mm3 (4.2-5.4); White Blood Count 6.2 K/mm3 (4.4-11.0)
[2023-06-07 08:50] LABS: Cholesterol 121 mg/dL (200); High Density Lipoprotein 31 mg/dL; Triglycerides 233 mg/dL; Very Low Density Lipoprotein 47 mg/dL (5-40)
== END ==
LOC: OLS.ACH 05:00
PROVIDERS: PCP Internal Medicine; Visit Provider Internal Medicine
DX: G35 Multiple sclerosis (principal); I10 Essential (primary) hypertension; E78.49 Other hyperlipidemia
CPT/HCPCS: 36415; 80061; 85025

== ENCOUNTER → 2023-08-30 | Outpatient (REF) | payer MEDICARE, MEDICAID, SELFPAY ==
[2023-08-30 08:36] LABS: Absolute Lymphocyte Count 2.43 X10^3/uL (0.83-4.51); Absolute Neutrophil Count 3.8 X10^3/uL (2.0-7.7); Basophil# 0.05 X10^3/uL; Basophil% 0.7 % (0-1); Eosinophil# 0.12 X10^3/uL; Eosinophils% 1.7 % (0-5); Hematocrit 36.8 % (37-47); Hemoglobin 11.3 g/dL (12.0-15.0); Lymphocyte # 2.43 X10^3/ul (0.83-4.51); Lymphocyte % 34.5 % (19-41); Mean Corp Hgb Conc 30.7 g/dL (32-36); Mean Corpuscular Hgb 28.5 pg (27.0-32.0); Mean Corpuscular Volume 92.9 fL (81-99); Mean Platelet Vol. 10.9 fl (6.2-12.0); Monocyte# 0.58 X10^3/uL; Monocyte% 8.2 % (0-10); NRBC Flagged by Analyzer 0 % (0-5); Neutrophil # 3.84 X10^3/uL (2.7-7.7); Neutrophil % 54.5 % (47-70); Platelet Count 247 K/mm3 (150-450); RBC Distribution Width CV 14.7 % (11.6-14.6); RBC Distribution Width SD 50.4 fl (35.1-43.9); Red Blood Count 3.96 M/mm3 (4.2-5.4); White Blood Count 7.1 K/mm3 (4.4-11.0)
[2023-08-30 08:56] LABS: Cholesterol 107 mg/dL (200); High Density Lipoprotein 35 mg/dL; Triglycerides 147 mg/dL; Very Low Density Lipoprotein 29 mg/dL (5-40)
== END ==
LOC: OLS.ACH 04:00
PROVIDERS: PCP Internal Medicine; Visit Provider Internal Medicine
DX: G35 Multiple sclerosis (principal); I10 Essential (primary) hypertension; E78.49 Other hyperlipidemia
CPT/HCPCS: 36415; 80061; 85025

== ENCOUNTER → 2023-09-22 | Outpatient (REF) | payer MEDICARE, MEDICAID, SELFPAY ==
[2023-09-22 09:53] LABS: Hematocrit 35.8 % (37-47); Hemoglobin 11.4 g/dL (12.0-15.0); Mean Corp Hgb Conc 31.8 g/dL (32-36); Mean Corpuscular Hgb 29.5 pg (27.0-32.0); Mean Corpuscular Volume 92.5 fL (81-99); Platelet Count 230 K/mm3 (150-450); RBC Distribution Width CV 14.8 % (11.6-14.6); RBC Distribution Width SD 49.5 fl (35.1-43.9); Red Blood Count 3.87 M/mm3 (4.2-5.4); White Blood Count 6.6 K/mm3 (4.4-11.0)
[2023-09-22 10:11] LABS: AST(SGOT) 22 U/L (15-37); Alanine Aminotransfer ALT/SGPT 41 U/L (13-56); Albumin, Serum 3.1 g/dL (3.2-5.0); Alkaline Phosphatase 86 U/L (45-117); Anion Gap 3 (5-15); BUN 10 mg/dL (7-18); BUN/Creat Ratio 15.5 RATIO (10-20); Calcium,Total 9.1 mg/dL (8.5-10.1); Chloride 114 mmol/L (98-107); Creatinine, Serum 0.65 mg/dL (0.55-1.02); EST Glomerular Filtration Rate 97 mL/min (>60); Est Glom Filt Rate - Afr Amer 117 mL/min (>60); Glucose 101 mg/dL (74-106); Protein, Total 6.1 g/dL (6.4-8.2); Sodium Level 144 mmol/L (136-145)
== END ==
LOC: OLS.ACH 04:00
PROVIDERS: PCP Internal Medicine; Referring Provider Internal Medicine; Visit Provider Internal Medicine
DX: G35 Multiple sclerosis (principal); I10 Essential (primary) hypertension; D50.8 Other iron deficiency anemias
CPT/HCPCS: 36415; 80053; 85027

== ENCOUNTER → 2023-11-09 | Outpatient (REF) | payer MEDICARE, MEDICAID, SELFPAY ==
[2023-11-09 09:45] LABS: Vitamin B12 1084 pg/mL (211-911)
== END ==
LOC: OLS.ACH 05:00
PROVIDERS: PCP Internal Medicine; Visit Provider Internal Medicine
DX: D50.8 Other iron deficiency anemias (principal)
CPT/HCPCS: 36415; 82607

== ENCOUNTER → 2023-11-22 | Outpatient (REF) | payer MEDICARE, MEDICAID, SELFPAY ==
--- OUTSIDE RECORDS SUMMARY | 2023-11-22 05:18 | XMS RPT_ITS | CCD ---
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 Name Role Phone MAHIN, MARISELA Unavailable Unavailable ERNESTO, CISCO S Unavailable Unavailable ERNESTO, CISCO S Unavailable Unavailable KOVACHIK, MARISELA Unavailable Unavailable ERNESTO, CISCO S Unavailable Unavailable ERNESTO, CISCO S Unavailable Unavailable KOVACHIK, MARISELA Unavailable Unavailable ERNESTO, CISCO S Unavailable Unavailable ERNESTO, CISCO S Unavailable Unavailable KOVACHIK, MARISELA Unavailable Unavailable ERNESTO, CISCO S Unavailable Unavailable ERNESTO, CISCO S Unavailable Unavailable KOVACHIK, MARISELA Unavailable Unavailable ERNESTO, CISCO S Unavailable Unavailable PROVIDER, UNKNOWN Referring Unavailable No, PCP Primary Care Unavailable Joel Mays Attending Unavailable RENETTA HEATH Attending Unavailable RENETTA HEATH Attending Unavailable Ronnie Portillo F Primary Care Provider [phone] Ronnie Portillo F Primary Care Provider Ronnie, Portillo F Primary Care Provider [phone] Ronnie, Portillo F Primary Care Provider [phone] RONNIE PORTILLO F Referring Unavailable MAXIM NAVARRETE Attending Unavailable RONNIE PORTILLO F Primary Care Unavailable RONNIE PORTILLO F Primary Care Unavailable MIKEL WHITEHEAD Attending Unavailable RONNIE PORTILLO F Primary Care Unavailable MAXIM NAVARRETE Referring Unavailable MAHIN, MARISELA Attending Unavailable MIKEL WHITEHEAD Attending Unavailable RONNIE PORTILLO F Primary Care Unavailable MIKEL WHITEHEAD Attending Unavailable MIKEL WHITEHEAD Referring Unavailable MIKEL WHITEHEAD Admitting Unavailable [facility], PORT[facility] F Primary Care Unavailable OLUA, PORTILLO F Primary Care Unavailable MIKEL WHITEHEAD Referring Unavailable OLUA, PORTILLO F Primary Care Unavailable MIKEL WHITEHEAD Referring Unavailable MIKEL WHITEHEAD Attending Unavailable [facility] Primary Care Unavailable VIKY YUE Montaño Referring Unavailabl e OLUA, PORTILLO F Primary Care Unavailable MIKEL WHITEHEAD Attending Unavailable [facility] Primary Care Unavailable MAXIM NAVARRETE Referring Unavailable MIKEL WHITEHEAD Attending Unavailable [facility] Primary Care Unavailable Allergies Allergy Classification Reported Allergen(s) Allergy Type Date of Onset Reaction(s) Facility (17 sources) ciprofloxacin; Translations: [CIPROFLOXACIN] Drug Allergy 6 Mental Status Change [facility] Repository (17 sources) nadolol; Translations: [NADOLOL] Drug Allergy 6 Unknown [facility] Repository (17 sources) penicillin; Translations: [PENICILLIN V] Drug Allergy 3 Rash [facility] Repository (17 sources) pregabalin; Translations: [PREGABALIN] Drug Allergy 6 Unknown [facility] Repository (2 sources) OTHER; Translations: [OTHER] Propensity to adverse reactions (disorder) 3 [facility] Repository (15 sources) All Cillins [Other] Propensity to adverse reactions 3 [facility] Medications Current Medications Medication Drug Class(es) Dates Sig (Normalized) Sig (Original) sulfamethoxazole 800 mg / trimethoprim 160 mg oral tablet (1 source) Dihydrofolate Reductase Inhibitor Antibacterial, Sulfonamide Antimicrobial Start: 07-02-2022 End: 07-09-2022 take 1 tablet by mouth twice daily sulfamethoxazol e-trimethoprim (BACTRIM DS) 800-160 mg per tablet Take 1 tablet by mouth twice daily for 7 days. 14 tablet 0 07/02/2022 07/09/2022 Active Completed/Discontinued Medications Medication Drug Class(es) Dates Sig (Normalized) Sig (Original) acetaminophen 325 mg oral tablet (13 sources) Start: 05-12-2022 take 2 tablets by mouth every six hours acetaminophen (TYLENOL) 325 mg tablet Take 2 tablets by mouth every 6 hours. 240 tablet 0 05/12/2022 Active Problems Active Problems Problem Classification Problem Date Documented Da te Episodic/Chronic Allergic reactions (6 sources) Allergy status to other antibiotic agents status; Translations: [Allergy status to penicillin] Onset: 10-07-2018 Episodic Asthma (2 sources) Unspecified asthma, uncomplicated; Translations: [Unspecified asthma, uncomplicated] Onset: 10-07-2018 Chronic Cancer of ovary (3 sources) Serous cystadenoma borderline malignancy of ovary; Translations: [Malignant neoplasm of unspecified ovary] Onset: 01-05-2023 Chronic Cardiac dysrhythmias (2 sources) Unspecified atrial fibrillation; Translations: [Unspecified atrial fibrillation] Onset: 10-07-2018 Chronic Coronary atherosclerosis and other heart disease (2 sources) Angina pectoris, unspecified; Translations: [Angina pectoris, unspecified] Onset: 10-07-2018 Chronic Deficiency and other anemia (1 source) Iron deficiency anemia; Translations: [Iron deficiency anemia, unspecified] Episodic Disorders of lipid metabolism (4 sources) Hyperlipidemia, unspecified; Translations: [Mixed hyperlipidemia] Onset: 10-07-2018 Chronic Esophageal disorders (2 sources) Gastro-esophageal reflux disease without esophagitis; Translations: [Gastro-esophageal reflux disease without esophagitis] Onset: 10-07-2018 Chronic Essential hypertension (2 sources) Essential (primary) hypertension; Translations: [Essential (primary) hypertension] Onset: 10-07-2018 Chronic Multiple sclerosis (20 sources) Multiple sclerosis; Translations: [Multiple sclerosis] Onset: 01-02-2014 01-02-2014 Chronic Other aftercare (2 sources) USP (current) use of aspirin; Translations: [USP (current) use of aspirin] Onset: 10-07-2018 Episodic Other aftercare (2 sources) [employer] (current) use of non-steroidal anti-inflammatories (NSAID); Translations: [[employer] (current) use of non-steroidal non-inflam (NSAID)] Onset: 10-07-2018 Episodic Other diseases of bladder and urethra (2 sources) Flaccid neuropathic bladder, not elsewhere classified; 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, not elsewhere classified] Onset: 10-07-2018 Chronic Other female genital disorders (4 sources) Tubo-ovarian mass; Translations: [Other noninflammatory disorders of ovary, fallopian tube and broad ligament] Episodic Other gastrointestinal disorders (1 source) Pelvic mass; Translations: [Intra-abdominal and pelvic swelling, mass and lump, unspecified site] Episodic Other nervous system disorders (2 sources) Other chronic pain; Translations: [Other chronic pain] Onset: 10-07-2018 Chronic Paralysis (3 sources) Functional quadriplegia; Translations: [Functional quadriplegia] Chronic Residual codes; unclassified (2 sources) Pain, unspecified; Translations: [Pain, unspecified] Onset: 10-07-2018 Spondylosis; intervertebral disc disorders; other back problems (15 sources) Inflammation of sacroiliac joint; Translations: [Sacroiliitis, not elsewhere classified] Onset: 11-20-2002 01-14-2004 Chronic Unclassified (1 source) Unknown / UNK(Unknown) Onset: 03-04-2018 Urinary tract infections (2 sources) Acute cystitis without hematuria; Translations: [Acute cystitis without hematuria] Onset: 10-07-2018 Episodic Past or Other Problems Problem Classification Problem Date Documented Da te Episodic/Chronic Deficiency and other anemia (3 sources) Iron deficiency anemia, unspecified; Translations: [Iron deficiency anemia, unspecified] Onset: 10-07-2018 Episodic Genitourinary symptoms and ill-defined conditions (20 sources) Retention of urine; Translations: [Retention of urine, unspecified] Onset: 03-04-2018 03-04-2018 Episodic Other acquired deformities (15 sources) Somatic dysfunction of lower limb; Translations: [Biomechanical lesion, unspecified] Onset: 12-07-2002 01-14-2004 Episodic Other acquired deformities (15 sources) Somatic dysfunction of pelvic region; Translations: [Biomechanical lesion, unspecified] Onset: 12-07-2002 01-14-2004 Episodic Other acquired deformities (15 sources) Somatic dysfunction of sacral region; Translations: [Biomechanical lesion, unspecified] Onset: 12-07-2002 01-14-2004 Episodic Other acquired deformities (15 sources) Somatic dysfunction of lumbar region; Translations: [Biomechanical lesion, unspecified] Onset: 12-07-2002 01-14-2004 Episodic Other acquired deformities (15 sources) Somatic dysfunction of thoracic region; Translations: [Biomechanical lesion, unspecified] Onset: 06-01-2003 01-14-2004 Episodic Other acquired deformities (15 sources) Somatic dysfunction of upper limb; Translations: [Biomechanical lesion, unspecified] Onset: 06-29-2003 01-14-2004 Episodic Other acquired deformities (15 sources) Cervical somatic dysfunction; Translations: [Other biomechanical lesions of cervical region] Onset: 11-23-2003 01-14-2004 Episodic Other connective tissue disease (15 sources) Muscle pain; Translations: [Myalgia and myositis, unspecified] Onset: 11-20-2002 01-14-2004 Episodic Other female genital disorders (1 source) Other noninflammatory disorders of ovary, fallopian tube and broad ligament; Translations: [Bilateral tubo-ovarian mass] Onset: 05-11-2022 Episodic Other gastrointestinal disorders (1 source) Intra-abdominal and pelvic swelling, mass and lump, unspecified site; Translations: [Pelvic mass in female] Onset: 05-01-2022 Episodic Unclassified (1 source) Retention of urine, unspecified Onset: 03-04-2018 Results Test Name Value Interpretation Reference Range Facil ity Vital Signs Date Time Vital Sign Value Performing Clinician Faci lity 01-05-2023 15:11-0400 Body height 160 cm Mikel [place] MD Work Phone: [facility] 01-05-2023 15:11-0400 Body temperature 98.2 [degF] Mikel [place] MD Work Phone: [facility] 01-05-2023 15:11-0400 Diastolic blood pressure 86 mm[Hg] Mikel [place] MD Work Phone: [facility] 01-05-2023 15:11-0400 Heart rate 92 /min Mikel [place] MD Work Phone: [facility] 01-05-2023 15:11-0400 SaO2% (BldA) [Mass fraction] 97 % Mikel [place] MD Work Phone: [facility] 01-05-2023 15:11-0400 Systolic blood pressure 131 mm[Hg] Mikel [place] MD Work Phone: [facility] 07-27-2022 14:28-0500 Body height 160 cm Marisela Murray PA-C Work Phone: [facility] 07-27-2022 14:28-0500 Diastolic blood pressure 80 mm[Hg] Marisela Murray PA-C Work Phone: [facility] 07-27-2022 14:28-0500 Systolic blood pressure 150 mm[Hg] Marisela Fragak PA-C Work Phone: [facility] 06-09-2022 10:03-0400 Body height 160 cm Mikel [place] MD Work Phone: [facility] 06-09-2022 10:03-0400 Body temperature 98.91 [degF] Mikel [place] MD Work Phone: [facility] 06-09-2022 10:03-0400 Diastolic blood pressure 84 mm[Hg] Mikel [place] MD Work Phone: [facility] 06-09-2022 10:03-0400 Heart rate 85 /min Mikel [place] MD Work Phone: [facility] 06-09-2022 10:03-0400 SaO2% (BldA) [Mass fraction] 95 % Mikel [place] MD Work Phone: [facility] 06-09-2022 10:03-0400 Systolic blood pressure 155 mm[Hg] Mikel [place] MD Work Phone: [facility] 05-01-2022 15:50-0400 Body height 157.[address] [facility] 05-01-2022 15:50-0400 Body temperature 97 [degF] Pst 1 [facility] 05-01-2022 15:50-0400 Body weight 77.[address] [facility] 05-01-2022 15:50-0400 Diastolic blood pressure 66 mm[Hg] Pst [address] [facility] 05-01-2022 15:50-0400 Heart rate 95 /min Pst [address] [facility] 05-01-2022 15:50-0400 Respiratory rate 16 /min Pst 1 [facility] 05-01-2022 15:50-0400 SaO2% (BldA) [Mass fraction] 95 % Pst [address] [facility] 05-01-2022 15:50-0400 Systolic blood pressure 138 mm[Hg] Pst [address] [facility] 04-07-2022 10:02-0400 Body height 158.8 cm Mikel [place] MD Work Phone: [facility] 04-07-2022 10:02-0400 Diastolic blood pressure 69 mm[Hg] Mikel [place] MD Work Phone: [facility] 04-07-2022 10:02-0400 Heart rate 90 /min Mikel [place] MD Work Phone: [facility] 04-07-2022 10:02-0400 SaO2% (BldA) [Mass fraction] 95 % Mikel [place] MD Work Phone: [facility] 04-07-2022 10:02-0400 Systolic blood pressure 129 mm[Hg] Mikel [place] MD Work Phone: [facility] 03-10-2022 09:12-0400 Body height 158.8 cm Mikel [place] MD Work Phone: [facility] 03-10-2022 09:12-0400 Body temperature 97.7 [degF] Mikel [place] MD Work Phone: [facility] 03-10-2022 09:12-0400 Diastolic blood pressure 80 mm[Hg] Mikel [place] MD Work Phone: [facility] 03-10-2022 09:12-0400 Heart rate 88 /min Mikel [place] MD Work Phone: [facility] 03-10-2022 09:12-0400 SaO2% (BldA) [Mass fraction] 96 % Mikel [place] MD Work Phone: [facility] 03-10-2022 09:12-0400 Systolic blood pressure 137 mm[Hg] Mikel [place] MD Work Phone: [facility] 02-03-2022 08:59-0400 Body height 160 cm Mikel [place] MD Work Phone: [facility] 02-03-2022 08:59-0400 Body temperature 96.8 [degF] Mikel [place] MD Work Phone: [facility] 02-03-2022 08:59-0400 Body weight 77.11 kg Mikel [place] MD Work Phone: [facility] 02-03-2022 08:59-0400 Diastolic blood pressure 98 mm[Hg] Mikel [place] MD Work Phone: [facility] 02-03-2022 08:59-0400 Heart rate 70 /min Mikel [place] MD Work Phone: [facility] 02-03-2022 08:59-0400 SaO2% (BldA) [Mass fraction] 96 % Mikel [place] MD Work Phone: [facility] 02-03-2022 08:59-0400 Systolic blood pressure 150 mm[Hg] Mikel [place] MD Work Phone: [facility] 01-22-2022 10:08-0400 Body height 160 cm Maxim Navarrete Jr., MD Work Phone: [facility] 01-22-2022 10:08-0400 Body weight 68.95 kg Maxim Navarrete Jr., MD Work Phone: [facility] 01-22-2022 10:08-0400 Diastolic blood pressure 88 mm[Hg] Maxim Navarrete Jr., MD Work Phone: [facility] 01-22-2022 10:08-0400 Systolic blood pressure 142 mm[Hg] Maxim Navarrete Jr., MD Work Phone: [facility] Encounters Encounter Date Encounter Type Care Provider Facility Start: 01-05-2023 End: 01-05-2023 ambulatory [facility] [facility] Procedures Date Procedure Procedure Detail Performing Clinician Start: 05-01-2022 Antibody screen PORTILLO TRUJILLO Plan of Treatment Date Care Activity Detail Author Start: 05-01-2025 DIABETES SCREEN DIABETES SCREEN [facility] Start: 05-21-2023 Influenza vaccination INFLUENZ A (Season Ended) 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) Expected: 01/05/2023, Expires: 03/07/2023 [facility] Work Phone: Payers Date Payer Category Payer Medicare 2019 Medicaid [facility] MEDICA[facility] [id number] 2019-Present [phone] [address] [place] [address] Medicaid [id number] 2019 Medicare [id number] 2019 Medicare [id number] 1955 Unknown [id number] Medicare [id number] Private Health Insurance Social History Date Type Detail Facility [facility]: [facility] Work Phone: Start: 08-13-2021 End: 01-05-2023 Alcohol intake Current non-drinker of alcohol (finding) [facility] Start: 1955 Sex Assigned At Not on file [facility] Start: 12-15-2021 End: 07-27-2022 Exposure to SARS-CoV-2 (event) Not sure [facility] Start: 07-13-2016 Tobacco use and exposure Smokeless tobacco non-user [facility] Clinical Notes 12-25-2021 to 01-05-2023 Mikel [place] MD - 01/05/2023 3:00 PM EDTTelephone Encounter - Maxim Navarrete Jr., MD - 10/07/2022 1:56 PM ESTTelephone Encounter - Yamilet Osman RN - 10/07/2022 11:58 AM EST Note Date & Type Note Facility 01-05-2023 Note HNO ID: [id number] Author: Mikel [place] MD Service: ? Author Type: Physician Type: Progress Notes Filed: 01/17/2023 10:43 PM Note Text: Gynecologic Oncology [facility] [place] [facility] Follow up visit Date of service: 01/05/2023 PROBLEM/CC: Shin Rojo presents for 6 month follow-up. HPI: Ms. 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 Today she is s/p 05/11/2022 BSO and peritoneal biopsy. Diagnosis with MS at 56. Has significantly lost muscle strength. Lives at nursing facility and uses a wheelchair and brigitte lift. Last Office Visit: 06/09/2022 ONCOLOGY HISTORY: 05/11/2022 Laparoscopic Bilateral Salpingo-oophorectomy AND Biopsy of Peritoneal Cavity FINAL DIAGNOSIS A. 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 See comment. - Tumor appears confined to the ovary without surface involvement. Fallopian tube: - Unremarkable fallopian tube. B. Right ovary and Fallopian tube, right salpingo-oophorectomy: Ovary: - Ovary with serous cystadenofibroma. - Fibrous adhesions with associated dystrophic and psammomatous calcifications. Fallopian tube; - Unremarkable fallopian tube. C. Serosal adhesion, biopsy: - Fat necrosis. Diagnosis Comment B. A p53 immunostain performed on block B4 shows wild-type staining. A Ki-67 immunostain shows no significant mitotic activity (Ki-67 index less than 5%). Select slides of part a and B were reviewed at the [facility] gynecologic pathology consensus conference via telepathology on 05/21/[address] 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 PATHOLOGICAL STAGE CLASSIFICATION (pTNM, AJCC 8th Edition) pT Category: pT1a pN Category: pN not assigned (no nodes submitted or found) FIGO STAGE FIGO STAGE: IA GENETIC TESTING: HISTORIES: PAST MEDICAL HISTORY Diagnosis Date Anemia Atrial fibrillation (HCC) Functional quadriplegia (HCC) Hyperlipidemia Insomnia Lack of coordination Major depressive disorder Multiple sclerosis (HCC) Muscle weakness (generalized) Neurogenic bladder Pulmonary disease Retention of urine, unspecified 03/04/2018 PAST SURGICAL HISTORY Procedure Laterality Date PAST SURGICAL HISTORY OF nasal septum repair PAST SURGICAL HISTORY OF suprapubic catheter placement PAST SURGICAL HISTORY OF 2020 remove of bladder stone REMOVAL OF OVARY/TUBE(S) 05/11/2022 w/ removal of associated bilateral adnexal masses and sigmoid adhesion biopsy REPAIR INCISIONAL HERNIA,REDUCIBLE 1991 per patient left groin area FAMILY HISTORY Problem Relation Age of Onset Diabetes Mother Heart disease Father Stroke Father SOCIAL HISTORY: Social History Tobacco Use Smoking status: Never Smokeless tobacco: Never Vaping Use Vaping Use: Never used Substance Use Topics Alcohol use: No Drug use: No Marital Status: PAST GYNECOLOGIC HISTORY: OB History No obstetric history on file. LMP: No LMP recorded. Patient is postmenopausal. HEALTH MAINTENANCE: Last pap: N/A Last mammogram: N/A Last colonoscopy: N/A ALLERGIES Allergen Reactions All Cillins [Other] Ciprofloxacin Mental Status Change Nadolol Unknown Penicillin V Rash Patient doubt having PCN allergy, states had amoxicillin ear drops was okay Pregabalin Unknown MEDICATIONS menthol/camphor (BIOFREEZE TOPICAL) Apply to affected area. ibuprofen (MOTRIN) 600 mg tablet Take 1 tablet by mouth every 6 hours. acetaminophen (TYLENOL) 325 mg tablet Take 2 tablets by mouth every 6 hours. acetaminophen (TYLENOL) 500 mg tablet Take 1,000 mg by mouth. atorvastatin (LIPITOR) 40 mg tablet Take 40 mg by mouth. calcium carbonate 600 mg-cholecalciferol 400 units 600 mg-10 mcg (400 unit) tab Take by mouth. famotidine (PEPCID) 20 mg tablet Take 20 mg by mouth. ondansetron (ZOFRAN) 4 mg tablet Take by mouth. Vitamin E, dl, acetate, (VITAMIN E) 400 unit capsule Take by mouth. zinc oxide 20 % ointment Apply to affected area. carboxymethylcellulose sodium (REFRESH OPHTHALMIC) Use in eyes. milk thistle/NAC/dandel/turmer (LIVER COMPLEX ORAL) Take by mouth. tiZANidine (ZANAFLEX) 2 mg tablet Take 2 mg by mouth. multivitamin tablet Take 1 tablet by mouth once daily. aspirin, enteric coated (ASPIRIN, ENTERIC COATED) 81 mg EC tablet Take 81 mg by mouth once daily. loratadine (CLARITIN) 10 mg tablet Take 10 mg by mouth once daily. cyanocobalamin (VITAMIN B-12) 1,000 mcg tab Take 1,000 mcg by mouth once daily. baclofen (LIORESAL) 20 mg tablet Take 20 mg by mouth three times daily. DOCUSATE SODIUM ORAL Take 100 mg by mouth as needed. CRANBERRY FRUIT EXTRACT (CRANBERRY ORAL) Take 400 mg by mouth twice daily. Ascorbic Acid 1,000 mg tablet Take 1,000 mg by mouth twice daily. menthol (BIOFREEZE) 4 % t (more content not included)... [facility] 01-05-2023 History of Presen t illness Narrative Gynecologic Oncology [facility] Follow up visit Date of service: 01/05/2023 PROBLEM/CC: Shin Rojo presents for 6 month follow-up. HPI: Ms. 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 Today she is s/p 05/11/2022 BSO and peritoneal biopsy. Diagnosis with MS at 56. Has significantly lost muscle strength. Lives at nursing facility and uses a wheelchair and brigitte lift. Last Office Visit: 06/09/2022 ONCOLOGY HISTORY: 05/11/2022 Laparoscopic Bilateral Salpingo-oophorectomy & Biopsy of Peritoneal Cavity FINAL DIAGNOSIS A. 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 See comment. - Tumor appears confined to the ovary without surface involvement. Fallopian tube: - Unremarkable fallopian tube. B. Right ovary and Fallopian tube, right salpingo-oophorectomy: Ovary: - Ovary with serous cystadenofibroma. - Fibrous adhesions with associated dystrophic and psammomatous calcifications. Fallopian tube; - Unremarkable fallopian tube. C. Serosal adhesion, biopsy: - Fat necrosis. Diagnosis Comment B. A p53 immunostain performed on block B4 shows wild-type staining. A Ki-67 immunostain shows no significant mitotic activity (Ki-67 index less than 5%). Select slides of part a and B were reviewed at the [facility] gynecologic pathology consensus conference via telepathology on 05/21/[address] 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 PATHOLOGICAL STAGE CLASSIFICATION (pTNM, AJCC 8th Edition) pT Category: pT1a pN Category: pN not assigned (no nodes submitted or found) FIGO STAGE FIGO STAGE: IA GENETIC TESTING: HISTORIES: PAST MEDICAL HISTORY Diagnosis Date Anemia Atrial fibrillation (HCC) Functional quadriplegia (HCC) Hyperlipidemia Insomnia Lack of coordination Major depressive disorder Multiple sclerosis (HCC) Muscle weakness (generalized) Neurogenic bladder Pulmonary disease Retention of urine, unspecified 03/04/2018 PAST SURGICAL HISTORY Procedure Laterality Date PAST SURGICAL HISTORY OF nasal septum repair PAST SURGICAL HISTORY OF suprapubic catheter placement PAST SURGICAL HISTORY OF 2020 remove of bladder stone REMOVAL OF OVARY/TUBE(S) 05/11/2022 w/ removal of associated bilateral adnexal masses and sigmoid adhesion biopsy REPAIR INCISIONAL HERNIA,REDUCIBLE 1991 per patient left groin area FAMILY HISTORY Problem Relation Age of Onset Diabetes Mother Heart disease Father Stroke Father SOCIAL HISTORY: Social History Tobacco Use Smoking status: Never Smokeless tobacco: Never Vaping Use Vaping Use: Never used Substance Use Topics Alcohol use: No Drug use: No Marital Status: PAST GYNECOLOGIC HISTORY: OB History No obstetric history on file. LMP: No LMP recorded. Patient is postmenopausal. HEALTH MAINTENANCE: Last pap: N/A Last mammogram: N/A Last colonoscopy: N/A ALLERGIES Allergen Reactions All Cillins [Other] Ciprofloxacin Mental Status Change Nadolol Unknown Penicillin V Rash Patient doubt having PCN allergy, states had amoxicillin ear drops was okay Pregabalin Unknown MEDICATIONS menthol/camphor (BIOFREEZE TOPICAL) Apply to affected area. ibuprofen (MOTRIN) 600 mg tablet Take 1 tablet by mouth every 6 hours. acetaminophen (TYLENOL) 325 mg tablet Take 2 tablets by mouth every 6 hours. acetaminophen (TYLENOL) 500 mg tablet Take 1,000 mg by mouth. atorvastatin (LIPITOR) 40 mg tablet Take 40 mg by mouth. calcium carbonate 600 mg-cholecalciferol 400 units 600 mg-10 mcg (400 unit) tab Take by mouth. famotidine (PEPCID) 20 mg tablet Take 20 mg by mouth. ondansetron (ZOFRAN) 4 mg tablet Take by mouth. Vitamin E, dl, acetate, (VITAMIN E) 400 unit capsule Take by mouth. zinc oxide 20 % ointment Apply to affected area. carboxymethylcellulose sodium (REFRESH OPHTHALMIC) Use in eyes. milk thistle/NAC/dandel/turmer (LIVER COMPLEX ORAL) Take by mouth. tiZANidine (ZANAFLEX) 2 mg tablet Take 2 mg by mouth. multivitamin tablet Take 1 tablet by mouth once daily. aspirin, enteric coated (ASPIRIN, ENTERIC COATED) 81 mg EC tablet Take 81 mg by mouth once daily. loratadine (CLARITIN) 10 mg tablet Take 10 mg by mouth once daily. cyanocobalamin (VITAMIN B-12) 1,000 mcg tab Take 1,000 mcg by mouth once daily. baclofen (LIORESAL) 20 mg tablet Take 20 mg by mouth three times daily. DOCUSATE SODIUM ORAL Take 100 mg by mouth as needed. CRANBERRY FRUIT EXTRACT (CRANBERRY ORAL) Take 400 mg by mouth twice daily. Ascorbic Acid 1,000 mg tablet Take 1,000 mg by mouth twice daily. menthol (BIOFREEZE) 4 % topical gel Apply 4 % to affected area as needed. HYDROcodone-acetaminophen (NORCO) 5-325 mg per tablet Take 1 tablet by mouth every 6 hours as needed for Pain. melatonin 1 mg tab Take 1 mg by mouth at bedtime as needed. magnesium hydroxide (MOM) 400 mg/5 mL suspension Take 30 mL by mouth once daily as needed for Constipation. sodium chloride (AYR, OCEAN) 0.65 % nasal spray Use 1 [place] in the nose every 2 hours as needed. lidocaine (LIDODERM) 5 % Apply 1 Patch as directed as needed. senna (SENOKOT) 8.6 mg tab Take 8.6 mg by mouth once daily as needed (Constipation). ergocalciferol 50,000 unit capsule (VITAMIN D2, DRISDOL) Take 50,000 Units by mouth once each week. gabapentin (NEURONTIN) 300 mg capsule Take 300 mg by mouth three times daily. INTERVAL HISTORY: Shin Rojo reports that she feels ok. She presents today alone. No new health complaints at today's visit. No recent infections. She has a few consistent friends at her facility. She reports her pain feels improved since surgery. Reports a decrease in fullness/pressure sensation in her abdomen. Regular bowel movements. PHYSICAL EXAM: VITALS: BP 131/86 (BP Site: Right Arm, BP Position: Sitting, BP Cuff Size: Extra Large Adult) Pulse 92 Temp 36.8 C (98.2 F) (Oral) Ht 160 cm (5' 3 ) SpO2 97% BMI 33.19 kg/m GENERAL: Patient is a well developed, well nourished, no acute distress. Presenting alone. presents in a wheelchair. SKIN: Color, texture, turgor normal. No rashes or lesions. HEENT: Normocephalic, atraumatic, mucus membranes moist, and no lesions NECK: Supple, no adenopathy; thyroid symmetric, normal size, no bruits LUNGS: Respirations unlabored. Chest clear. HEART: Regular rate and rhythm. No murmer. No JVD. ABDOMEN: Nontender. No palpable masses. Incision well healed. No ascites apparent. Suprapubic site no infection. PELVIC: Deferred PSYCHIATRIC: Alert, cooperative. Normal affect. Normal behavior. LYMPH NODES: No palpable enlarged nodes in neck or groin. LOWER EXTREMITIES: Not tender. Mild pitting edema. No phlebitis Dental Office Assistant for exam: Yue Alcantara APRN, CAN INTAKE WORKER RESULTS: CA 125: 01/01/2022 = 19 U/mL 04/07/2022 = 19 U/mL ASSESSMENT & PLAN: 02/03/2022 Impression: Cystic adnexal mass(es) probably involving both adnexal. Left sided lesion is multi septated measuring approximately 16 x 10 cm. Right cystic lesion Measures approximately 5 cm. No ascites or adenopathy or carcinomatosis on CT scan in December. She gives a history of a pelvic mass going back several years. No source documents were available for my review today. She believes prior scans may have been done at [facility]. She had laboratory studies collected recently, the results are unavailable at today's visit, but she believe she was told her tumor markers were normal. Plan: I reviewed the natural history of pelvic cystic masses. The findings are not consistent with ovarian cancer but this has not been excluded. It is difficult to assess wether this mass is contributing to any abdominal discomfort which she says is intermittent. She has no sense any rapid increase in abdominal girth. No change in GI symptoms. No vaginal bleeding. She understands that she is at a higher then average risk of having a post operative complication given her functional status and MS if surgery is done to remove the lesions. At this point our shared decision is to allow me time to collect 1 or more documents regarding the mass that was assessed many years ago. Will also obtain results of recent blood test including CA 125 which was probably done. I will see her next month to review these findings. Consideration for surgery or re-assessment with US or CT Will be discussed at that time. 03/10/22 67 year old presenting with bilateral ovarian cysts (L>R) management. Reviewed normal CA-[address] images with patient today. Reviewed possibility of cyst drainage vs surgical removal. Reviewed high surgical risk given low performance status. Plan for transabdominal US to further characterize cyst progression and characteristics. Order placed for Green after 23 of March. Plan to return to office after US results - march. 04/07/22: Karrie Colmenares DO, MARICARMENA, HOME HEALTH TRAVEL PT PGY-2 67 year old female with bilateral adnexal cystic masses presents for follow up and discussion of management. -Reviewed most recent pelvic US from 03/31 which again shows bilateral septated adnexal cysts, L>R as below: - Within the right adnexa there is a 6.5 x 4.9 x 3.5 cm cystic structure - there is a 13.3 x 8.7 x 14.7 cm cystic structure. This has a mildly thickened internal septation. No significant vascular flow. - US impression states cysts are similar in size compared to CT done in December 2021 -Reviewed prior US from 2010 where cystic structures were present but smaller -Given extermination inspector presence of cysts and slow growth, low concern for cancer -thorough discussion with patient regarding natural progression of cysts including low likelihood of malignant process but inability to predict if they could cause bulk symptoms in the future. Discussed option of expectant management vs surgical management. Discussed that she would be at higher risk for surgical complications due to her MS. She is concerned about the possibility developing complications from the cysts and needing surgery in the future after possible further decline in health. -The risks of surgery were discussed including bleeding, infection, injury to surrounding organs including GI, , nerve or vascular structures. Possible blood clot following surgery was discussed. Average recovery following minimally invasive and open procedure was discussed. Additional risks including possible difficulty waking up from anesthesia given her MS were discussed. -She would like to proceed with surgical management at this time. She is physically unable to sign for herself so her accompanying caregiver (MARÍA Sams) signed her consent form in her presence after informed consent was obtained from the patient. He was not involved in the decision making process and acted only to sign in the setting of the patient's physical inability to sign. -Referral to anesthesia for preoperative testing and further discussion of specific anesthesia risks with MS -Plan for exam under anesthesia, laparoscopic BSO, removal of pelvic masses, possible removal of other structures if concern for cancer including uterus, omentum, lymph nodes, and any other concerning structures. Possible laparotomy. Tentatively planned for May 11. -Plan to admit for 24 hour observation after surgery, longer if indicated. 05/11/2022 Surgery - Laparoscopic bilateral salpingo-oophorectomy with biopsy of peritoneal cavity. 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 Tumor surveillance visits discussed with her. Symptoms or signs that would prompt earlier visit reviewed. See me in 6 months with CA 125 at that time. 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 No new health concerns at today's visit. CA 125 not yet drawn. PLAN Order will be sent back to her facility for her CA 125 to be drawn. Return to clinic in 6 months, in June, for continued surveillance. Contact this office with any questions or concerns prior to her next appointment. Documentation from my notes of previous visit of 06/09/2022 was copied and pasted, documentation has been reviewed and edited as necessary and is current for today. ATTESTATION: By signing my name below, I, Yen Horan, attest that this documentation has been prepared under the direction and in the presence of Mikel Whitehead MD. I, Mikel Whitehead MD, agree that the above note, as documented by my scribe, accurately describes my encounter with the patient today. Electronically signed:Alex Gentile, Mikel Whitehead MD, Physician, January 05, 2023 3:49 PM documented in this encounter [facility] 10-07-2022 Miscellaneous Notes Ok to send the order Patient with current SP tube. [facility] nurse calling for verbal orders to change amount of time catheter is flushed daily. Current order is to flush 3x day twice with saline and once with acetic acid. Patient would like to have the catheter flushed only twice daily. Once with saline and one with acetic acid. Please call [phone] and ask for nurse caring for patient. Yamilet Osman RN documented in this encounter [facility] 07-27-2022 Note HNO ID: [id number] Author: Marisela Murray PA-C Service: ? Author Type: Physician Electrophysiology Tech Type: Progress Notes Filed: 07/27/2022 3:15 PM Note Text: ESTABLISHED PATIENT OFFICE VISIT HISTORY OF PRESENT ILLNESS: Shin Rojo is a 67 year old female, Ht 160 cm (5' 3 ) BMI 33.19 kg/m2 with a PMH significant for yearly check up. Pt gets flushed 3 times daily with acidic acid for sediment, it has been working well, occational uti's, no symptoms today. Urine is clear. . LAB: Creatinine Date Value Ref Range Status 05/01/2022 0.58 0.58 - 0.96 mg/dL Final No results found for: PSA No results found for: UGLUC, UBILI, UKET, SPGR, UHB, UPH, UPROT, UROBIL, NITRITES, UWBC, UCOLAP MEDICATIONS: menthol/camphor (BIOFREEZE TOPICAL) Apply to affected area. ibuprofen (MOTRIN) 600 mg tablet Take 1 tablet by mouth every 6 hours. acetaminophen (TYLENOL) 325 mg tablet Take 2 tablets by mouth every 6 hours. acetaminophen (TYLENOL) 500 mg tablet Take 1,000 mg by mouth. atorvastatin (LIPITOR) 40 mg tablet Take 40 mg by mouth. calcium carbonate 600 mg-cholecalciferol 400 units 600 mg-10 mcg (400 unit) tab Take by mouth. famotidine (PEPCID) 20 mg tablet Take 20 mg by mouth. ondansetron (ZOFRAN) 4 mg tablet Take by mouth. Vitamin E, dl, acetate, (VITAMIN E) 400 unit capsule Take by mouth. zinc oxide 20 % ointment Apply to affected area. carboxymethylcellulose sodium (REFRESH OPHTHALMIC) Use in eyes. milk thistle/NAC/dandel/turmer (LIVER COMPLEX ORAL) Take by mouth. tiZANidine (ZANAFLEX) 2 mg tablet Take 2 mg by mouth. multivitamin tablet Take 1 tablet by mouth once daily. aspirin, enteric coated (ASPIRIN, ENTERIC COATED) 81 mg EC tablet Take 81 mg by mouth once daily. loratadine (CLARITIN) 10 mg tablet Take 10 mg by mouth once daily. cyanocobalamin (VITAMIN B-12) 1,000 mcg tab Take 1,000 mcg by mouth once daily. baclofen (LIORESAL) 20 mg tablet Take 20 mg by mouth three times daily. DOCUSATE SODIUM ORAL Take 100 mg by mouth as needed. CRANBERRY FRUIT EXTRACT (CRANBERRY ORAL) Take 400 mg by mouth twice daily. Ascorbic Acid 1,000 mg tablet Take 1,000 mg by mouth twice daily. menthol (BIOFREEZE) 4 % topical gel Apply 4 % to affected area as needed. HYDROcodone-acetaminophen (NORCO) 5-325 mg per tablet Take 1 tablet by mouth every 6 hours as needed for Pain. melatonin 1 mg tab Take 1 mg by mouth at bedtime as needed. magnesium hydroxide (MOM) 400 mg/5 mL suspension Take 30 mL by mouth once daily as needed for Constipation. sodium chloride (AYR, OCEAN) 0.65 % nasal spray Use 1 [place] in the nose every 2 hours as needed. lidocaine (LIDODERM) 5 % Apply 1 Patch as directed as needed. senna (SENOKOT) 8.6 mg tab Take 8.6 mg by mouth once daily as needed (Constipation). ergocalciferol 50,000 unit capsule (VITAMIN D2, DRISDOL) Take 50,000 Units by mouth once each week. gabapentin (NEURONTIN) 300 mg capsule Take 300 mg by mouth three times daily. Review of Systems HISTORIES PAST MEDICAL HISTORY Diagnosis Date Anemia Atrial fibrillation (HCC) Functional quadriplegia (HCC) Hyperlipidemia Insomnia Lack of coordination Major depressive disorder Multiple sclerosis (HCC) Muscle weakness (generalized) Neurogenic bladder Pulmonary disease Retention of urine, unspecified 03/04/2018 FAMILY HISTORY Problem Relation Age of Onset Diabetes Mother Heart disease Father Stroke Father Social History Tobacco Use Smoking status: Never Smokeless tobacco: Never Vaping Use Vaping Use: Never used Substance Use Topics Alcohol use: No Drug use: No PHYSICAL EXAMINATION GENERAL APPEARANCE: Well appearing, alert, in no acute distress, well-hydrated, well nourished. ASSESSMENT/PLAN: 1. Retention of urine, unspecified - ICD9: 788.20, ICD10: R33.9 Facility changes catheter monthly Bladder irrigated 3 times daily for sediment Marisela Murray PA-C I spent a total of 20 minutes on the date of the service which included preparing to see the patient, [id number] patient care, completing clinical documentation, and counseling and educating the patient/family/caregiver. [facility] 07-27-2022 History of Presen t illness Narrative ESTABLISHED PATIENT OFFICE VISIT HISTORY OF PRESENT ILLNESS: Shin Rojo is a 67 year old female, Ht 160 cm (5' 3 ) BMI 33.19 kg/m2 with a PMH significant for yearly check up. Pt gets flushed 3 times daily with acidic acid for sediment, it has been working well, occational uti's, no symptoms today. Urine is clear. . LAB: Creatinine Date Value Ref Range Status 05/01/2022 0.58 0.58 - 0.96 mg/dL Final No results found for: PSA No results found for: UGLUC, UBILI, UKET, SPGR, UHB, UPH, UPROT, UROBIL, NITRITES, UWBC, UCOLAP MEDICATIONS: menthol/camphor (BIOFREEZE TOPICAL) Apply to affected area. ibuprofen (MOTRIN) 600 mg tablet Take 1 tablet by mouth every 6 hours. acetaminophen (TYLENOL) 325 mg tablet Take 2 tablets by mouth every 6 hours. acetaminophen (TYLENOL) 500 mg tablet Take 1,000 mg by mouth. atorvastatin (LIPITOR) 40 mg tablet Take 40 mg by mouth. calcium carbonate 600 mg-cholecalciferol 400 units 600 mg-10 mcg (400 unit) tab Take by mouth. famotidine (PEPCID) 20 mg tablet Take 20 mg by mouth. ondansetron (ZOFRAN) 4 mg tablet Take by mouth. Vitamin E, dl, acetate, (VITAMIN E) 400 unit capsule Take by mouth. zinc oxide 20 % ointment Apply to affected area. carboxymethylcellulose sodium (REFRESH OPHTHALMIC) Use in eyes. milk thistle/NAC/dandel/turmer (LIVER COMPLEX ORAL) Take by mouth. tiZANidine (ZANAFLEX) 2 mg tablet Take 2 mg by mouth. multivitamin tablet Take 1 tablet by mouth once daily. aspirin, enteric coated (ASPIRIN, ENTERIC COATED) 81 mg EC tablet Take 81 mg by mouth once daily. loratadine (CLARITIN) 10 mg tablet Take 10 mg by mouth once daily. cyanocobalamin (VITAMIN B-12) 1,000 mcg tab Take 1,000 mcg by mouth once daily. baclofen (LIORESAL) 20 mg tablet Take 20 mg by mouth three times daily. DOCUSATE SODIUM ORAL Take 100 mg by mouth as needed. CRANBERRY FRUIT EXTRACT (CRANBERRY ORAL) Take 400 mg by mouth twice daily. Ascorbic Acid 1,000 mg tablet Take 1,000 mg by mouth twice daily. menthol (BIOFREEZE) 4 % topical gel Apply 4 % to affected area as needed. HYDROcodone-acetaminophen (NORCO) 5-325 mg per tablet Take 1 tablet by mouth every 6 hours as needed for Pain. melatonin 1 mg tab Take 1 mg by mouth at bedtime as needed. magnesium hydroxide (MOM) 400 mg/5 mL suspension Take 30 mL by mouth once daily as needed for Constipation. sodium chloride (AYR, OCEAN) 0.65 % nasal spray Use 1 [place] in the nose every 2 hours as needed. lidocaine (LIDODERM) 5 % Apply 1 Patch as directed as needed. senna (SENOKOT) 8.6 mg tab Take 8.6 mg by mouth once daily as needed (Constipation). ergocalciferol 50,000 unit capsule (VITAMIN D2, DRISDOL) Take 50,000 Units by mouth once each week. gabapentin (NEURONTIN) 300 mg capsule Take 300 mg by mouth three times daily. Review of Systems HISTORIES PAST MEDICAL HISTORY Diagnosis Date Anemia Atrial fibrillation (HCC) Functional quadriplegia (HCC) Hyperlipidemia Insomnia Lack of coordination Major depressive disorder Multiple sclerosis (HCC) Muscle weakness (generalized) Neurogenic bladder Pulmonary disease Retention of urine, unspecified 03/04/2018 FAMILY HISTORY Problem Relation Age of Onset Diabetes Mother Heart disease Father Stroke Father Social History Tobacco Use Smoking status: Never Smokeless tobacco: Never Vaping Use Vaping Use: Never used Substance Use Topics Alcohol use: No Drug use: No PHYSICAL EXAMINATION GENERAL APPEARANCE: Well appearing, alert, in no acute distress, well-hydrated, well nourished. ASSESSMENT/PLAN: 1. Retention of urine, unspecified - ICD9: 788.20, ICD10: R33.9 Facility changes catheter monthly Bladder irrigated 3 times daily for sediment Marisela Murray PA-C I spent a total of 20 minutes on the date of the service which included preparing to see the patient, [id number] patient care, completing clinical documentation, and counseling and educating the patient/family/caregiver. documented in this encounter [facility] 07-02-2022 Miscellaneous Notes Please fax antibiotic script to facility. Marisela Murray PA-C documented in this encounter [facility] 06-26-2022 Miscellaneous Notes Crystal informed. They will fax results. Eugenio Yanez Ma signed Facility called stating that Shin is having a pink color to her urine and is complaining of pressure in her bladder. They are asking if you would like to do a urine culture? Pended if needed. Can you advise? Eugenio Yanez Ma [facility] [place] [phone] Alannah documented in this encounter [facility] 06-09-2022 Note HNO ID: [id number] Author: Mikel Whitehead MD Service: ? Author Type: Physician Type: Progress Notes Filed: 06/15/2022 1:27 PM Note Text: Gynecologic Oncology [facility] Post-Op Visit Date of service: 06/09/2022 PROBLEM/CC: Shin Rojo returns to the office today for her postoperative visit. HPI:Ms. 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 Today she is s/p 05/11/2022 BSO and peritoneal biopsy. Diagnosis with MS at 56. Has significantly lost muscle strength. Lives at nursing facility and uses a wheelchair and brigitte lift. SURGERY AND DATE: 05/11/2022 Laparoscopic Bilateral Salpingo-oophorectomy with peritoneal cavity biopsy. Last office visit: 04/07/2022 ONCOLOGY HISTORY: 05/11/2022 Laparoscopic Bilateral Salpingo-oophorectomy AND Biopsy of Peritoneal Cavity FINAL DIAGNOSIS A. 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 See comment. - Tumor appears confined to the ovary without surface involvement. Fallopian tube: - Unremarkable fallopian tube. B. Right ovary and Fallopian tube, right salpingo-oophorectomy: Ovary: - Ovary with serous cystadenofibroma. - Fibrous adhesions with associated dystrophic and psammomatous calcifications. Fallopian tube; - Unremarkable fallopian tube. C. Serosal adhesion, biopsy: - Fat necrosis. Diagnosis Comment B. A p53 immunostain performed on block B4 shows wild-type staining. A Ki-67 immunostain shows no significant mitotic activity (Ki-67 index less than 5%). Select slides of part a and B were reviewed at the [facility] gynecologic pathology consensus conference via telepathology on 05/21/[address] 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 PATHOLOGICAL STAGE CLASSIFICATION (pTNM, AJCC 8th Edition) pT Category: pT1a pN Category: pN not assigned (no nodes submitted or found) FIGO STAGE FIGO STAGE: IA HISTORIES: PAST MEDICAL HISTORY Diagnosis Date Anemia Atrial fibrillation (HCC) Functional quadriplegia (HCC) Hyperlipidemia Insomnia Lack of coordination Major depressive disorder Multiple sclerosis (HCC) Muscle weakness (generalized) Neurogenic bladder Pulmonary disease Retention of urine, unspecified 03/04/2018 PAST SURGICAL HISTORY Procedure Laterality Date PAST SURGICAL HISTORY OF nasal septum repair PAST SURGICAL HISTORY OF suprapubic catheter placement PAST SURGICAL HISTORY OF 2020 remove of bladder stone REMOVAL OF OVARY/TUBE(S) 05/11/2022 w/ removal of associated bilateral adnexal masses and sigmoid adhesion biopsy REPAIR INCISIONAL HERNIA,REDUCIBLE 1991 per patient left groin area FAMILY HISTORY Problem Relation Age of Onset Diabetes Mother Heart disease Father Stroke Father SOCIAL HISTORY: Social History Tobacco Use Smoking status: Never Smokeless tobacco: Never Vaping Use Vaping Use: Never used Substance Use Topics Alcohol use: No Drug use: No Marital Status: PAST GYNECOLOGIC HISTORY: OB History No obstetric history on file. LMP: No LMP recorded. Patient is postmenopausal. HEALTH MAINTENANCE Last pap: N/A Last mammogram: N/A Last colonoscopy: N/A ALLERGIES Allergen Reactions All Cillins [Other] Ciprofloxacin Mental Status Change Nadolol Unknown Penicillin V Rash Patient doubt having PCN allergy, states had amoxicillin ear drops was okay Pregabalin Unknown CURRENT MEDICATIONS menthol/camphor (BIOFREEZE TOPICAL) Apply to affected area. ibuprofen (MOTRIN) 600 mg tablet Take 1 tablet by mouth every 6 hours. acetaminophen (TYLENOL) 325 mg tablet Take 2 tablets by mouth every 6 hours. acetaminophen (TYLENOL) 500 mg tablet Take 1,000 mg by mouth. atorvastatin (LIPITOR) 40 mg tablet Take 40 mg by mouth. calcium carbonate 600 mg-cholecalciferol 400 units 600 mg-10 mcg (400 unit) tab Take by mouth. famotidine (PEPCID) 20 mg tablet Take 20 mg by mouth. ondansetron (ZOFRAN) 4 mg tablet Take by mouth. Vitamin E, dl, acetate, (VITAMIN E) 400 unit capsule Take by mouth. zinc oxide 20 % ointment Apply to affected area. carboxymethylcellulose sodium (REFRESH OPHTHALMIC) Use in eyes. milk thistle/NAC/dandel/turmer (LIVER COMPLEX ORAL) Take by mouth. tiZANidine (ZANAFLEX) 2 mg tablet Take 2 mg by mouth. multivitamin tablet Take 1 tablet by mouth once daily. aspirin, enteric coated (ASPIRIN, ENTERIC COATED) 81 mg EC tablet Take 81 mg by mouth once daily. loratadine (CLARITIN) 10 mg tablet Take 10 mg by mouth once daily. cyanocobalamin (VITAMIN B-12) 1,000 mcg tab Take 1,000 mcg by mouth once daily. baclofen (LIORESAL) 20 mg tablet Take 20 mg by mouth three times daily. DOCUSATE SODIUM ORAL Take 100 mg by mouth as needed. CRANBERRY FRUIT EXTRACT (CRANBERRY ORAL) Take 400 mg b (more content not included)... [facility] 06-09-2022 History of Presen t illness Narrative Gynecologic Oncology [facility] Post-Op Visit Date of service: 06/09/2022 PROBLEM/CC: Shin Rojo returns to the office today for her postoperative visit. HPI:Ms. 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 Today she is s/p 05/11/2022 BSO and peritoneal biopsy. Diagnosis with MS at 56. Has significantly lost muscle strength. Lives at nursing facility and uses a wheelchair and brigitte lift. SURGERY & DATE: 05/11/2022 Laparoscopic Bilateral Salpingo-oophorectomy with peritoneal cavity biopsy. Last office visit: 04/07/2022 ONCOLOGY HISTORY: 05/11/2022 Laparoscopic Bilateral Salpingo-oophorectomy & Biopsy of Peritoneal Cavity FINAL DIAGNOSIS A. 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 See comment. - Tumor appears confined to the ovary without surface involvement. Fallopian tube: - Unremarkable fallopian tube. B. Right ovary and Fallopian tube, right salpingo-oophorectomy: Ovary: - Ovary with serous cystadenofibroma. - Fibrous adhesions with associated dystrophic and psammomatous calcifications. Fallopian tube; - Unremarkable fallopian tube. C. Serosal adhesion, biopsy: - Fat necrosis. Diagnosis Comment B. A p53 immunostain performed on block B4 shows wild-type staining. A Ki-67 immunostain shows no significant mitotic activity (Ki-67 index less than 5%). Select slides of part a and B were reviewed at the [facility] gynecologic pathology consensus conference via telepathology on 05/21/[address] 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 PATHOLOGICAL STAGE CLASSIFICATION (pTNM, AJCC 8th Edition) pT Category: pT1a pN Category: pN not assigned (no nodes submitted or found) FIGO STAGE FIGO STAGE: IA HISTORIES: PAST MEDICAL HISTORY Diagnosis Date Anemia Atrial fibrillation (HCC) Functional quadriplegia (HCC) Hyperlipidemia Insomnia Lack of coordination Major depressive disorder Multiple sclerosis (HCC) Muscle weakness (generalized) Neurogenic bladder Pulmonary disease Retention of urine, unspecified 03/04/2018 PAST SURGICAL HISTORY Procedure Laterality Date PAST SURGICAL HISTORY OF nasal septum repair PAST SURGICAL HISTORY OF suprapubic catheter placement PAST SURGICAL HISTORY OF 2020 remove of bladder stone REMOVAL OF OVARY/TUBE(S) 05/11/2022 w/ removal of associated bilateral adnexal masses and sigmoid adhesion biopsy REPAIR INCISIONAL HERNIA,REDUCIBLE 1991 per patient left groin area FAMILY HISTORY Problem Relation Age of Onset Diabetes Mother Heart disease Father Stroke Father SOCIAL HISTORY: Social History Tobacco Use Smoking status: Never Smokeless tobacco: Never Vaping Use Vaping Use: Never used Substance Use Topics Alcohol use: No Drug use: No Marital Status: PAST GYNECOLOGIC HISTORY: OB History No obstetric history on file. LMP: No LMP recorded. Patient is postmenopausal. HEALTH MAINTENANCE Last pap: N/A Last mammogram: N/A Last colonoscopy: N/A ALLERGIES Allergen Reactions All Cillins [Other] Ciprofloxacin Mental Status Change Nadolol Unknown Penicillin V Rash Patient doubt having PCN allergy, states had amoxicillin ear drops was okay Pregabalin Unknown CURRENT MEDICATIONS menthol/camphor (BIOFREEZE TOPICAL) Apply to affected area. ibuprofen (MOTRIN) 600 mg tablet Take 1 tablet by mouth every 6 hours. acetaminophen (TYLENOL) 325 mg tablet Take 2 tablets by mouth every 6 hours. acetaminophen (TYLENOL) 500 mg tablet Take 1,000 mg by mouth. atorvastatin (LIPITOR) 40 mg tablet Take 40 mg by mouth. calcium carbonate 600 mg-cholecalciferol 400 units 600 mg-10 mcg (400 unit) tab Take by mouth. famotidine (PEPCID) 20 mg tablet Take 20 mg by mouth. ondansetron (ZOFRAN) 4 mg tablet Take by mouth. Vitamin E, dl, acetate, (VITAMIN E) 400 unit capsule Take by mouth. zinc oxide 20 % ointment Apply to affected area. carboxymethylcellulose sodium (REFRESH OPHTHALMIC) Use in eyes. milk thistle/NAC/dandel/turmer (LIVER COMPLEX ORAL) Take by mouth. tiZANidine (ZANAFLEX) 2 mg tablet Take 2 mg by mouth. multivitamin tablet Take 1 tablet by mouth once daily. aspirin, enteric coated (ASPIRIN, ENTERIC COATED) 81 mg EC tablet Take 81 mg by mouth once daily. loratadine (CLARITIN) 10 mg tablet Take 10 mg by mouth once daily. cyanocobalamin (VITAMIN B-12) 1,000 mcg tab Take 1,000 mcg by mouth once daily. baclofen (LIORESAL) 20 mg tablet Take 20 mg by mouth three times daily. DOCUSATE SODIUM ORAL Take 100 mg by mouth as needed. CRANBERRY FRUIT EXTRACT (CRANBERRY ORAL) Take 400 mg by mouth twice daily. Ascorbic Acid 1,000 mg tablet Take 1,000 mg by mouth twice daily. menthol (BIOFREEZE) 4 % topical gel Apply 4 % to affected area as needed. HYDROcodone-acetaminophen (NORCO) 5-325 mg per tablet Take 1 tablet by mouth every 6 hours as needed for Pain. melatonin 1 mg tab Take 1 mg by mouth at bedtime as needed. magnesium hydroxide (MOM) 400 mg/5 mL suspension Take 30 mL by mouth once daily as needed for Constipation. sodium chloride (AYR, OCEAN) 0.65 % nasal spray Use 1 [place] in the nose every 2 hours as needed. lidocaine (LIDODERM) 5 % Apply 1 Patch as directed as needed. senna (SENOKOT) 8.6 mg tab Take 8.6 mg by mouth once daily as needed (Constipation). ergocalciferol 50,000 unit capsule (VITAMIN D2, DRISDOL) Take 50,000 Units by mouth once each week. gabapentin (NEURONTIN) 300 mg capsule Take 300 mg by mouth three times daily. INTERVAL HISTORY: Shin Rojo is presenting today alone in a tiltable wheel chair. She has been feeling well since her operation. reports that she has a cough today. She is tested for COVID every Wednesday and Wednesday, her tests have been negative. Diagnosis with MS at 56, she has significantly lost muscle strength. Lives at nursing facility. PHYSICAL EXAM: VITALS: BP 155/84 (BP Site: Left Arm, BP Position: Sitting, BP Cuff Size: Regular Adult) Pulse 85 Temp 37.2 C (98.9 F) (Oral) Ht 160 cm (5' 3 ) SpO2 95% BMI 33.19 kg/m GENERAL: In tiltable wheel chair as before. She is alert, cooperative and responds appropriately. No acute distress. Presenting alone, accompanied to clinic by MARÍA Sams. SKIN: Color, texture, turgor normal. No rashes or lesions. HEENT: Some sniffles. Normocephalic, atraumatic, mucus membranes moist, and no lesions NECK: Supple, no adenopathy; thyroid symmetric, normal size, no bruits LUNGS: Respirations unlabored. Chest clear. HEART: Regular rate and rhythm. No murmer. No JVD. ABDOMEN: Nontender, port sites have healed well RESULTS: PATHOLOGY: 05/11/2022 Laparoscopic Bilateral Salpingo-oophorectomy & Biopsy of Peritoneal Cavity FINAL DIAGNOSIS A. 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 See comment. - Tumor appears confined to the ovary without surface involvement. Fallopian tube: - Unremarkable fallopian tube. B. Right ovary and Fallopian tube, right salpingo-oophorectomy: Ovary: - Ovary with serous cystadenofibroma. - Fibrous adhesions with associated dystrophic and psammomatous calcifications. Fallopian tube; - Unremarkable fallopian tube. C. Serosal adhesion, biopsy: - Fat necrosis. Diagnosis Comment B. A p53 immunostain performed on block B4 shows wild-type staining. A Ki-67 immunostain shows no significant mitotic activity (Ki-67 index less than 5%). Select slides of part a and B were reviewed at the [facility] gynecologic pathology consensus conference via telepathology on 05/21/2022 [address] Jenaro Alvardao and Rosalba Farrar agree with the above diagnoses of serous borderline tumor (A) and serous cystadenofibroma (B). PATHOLOGICAL STAGE CLASSIFICATION (pTNM, AJCC 8th Edition) pT Category: pT1a pN Category: pN not assigned (no nodes submitted or found) FIGO STAGE FIGO STAGE: IA 05/11/2022 CHEST X-RAY IMPRESSION No chest radiographic evidence of acute cardiopulmonary disease 05/01/2022 CBC Component Ref Range & Units 1 mo ago WBC 3.70 - 11.00 k/uL 9.50 RBC 3.90 - 5.20 m/uL 4.01 Hemoglobin 11.5 - 15.5 g/dL 11.9 Hematocrit 36.0 - 46.0 % 36.2 MCV 80.0 - 100.0 fL 90.3 MCH 26.0 - 34.0 pg 29.7 MCHC 30.5 - 36.0 g/dL 32.9 RDW-CV 11.5 - 15.0 % 14.7 Platelet Count 150 - 400 k/uL 231 MPV 9.0 - 12.7 fL 10.3 Absolute nRBC <0.01 k/uL <0.01 05/01/2022 COMP METABOLIC PANEL Component Ref Range & Units 1 mo ago Protein, Total 6.3 - 8.0 g/dL 6.4 Albumin 3.9 - 4.9 g/dL 4.2 Calcium, Total 8.5 - 10.2 mg/dL 9.3 Bilirubin, Total 0.2 - 1.3 mg/dL 0.2 Alkaline Phosphatase 34 - 123 U/L 105 AST 13 - 35 U/L 27 ALT 7 - 38 U/L 35 Glucose 74 - 99 mg/dL 106 High Comment: The [place] [employer] (ADA) provides guidance for cutoff values for fasting glucose and random glucose. The ADA defines fasting as no caloric intake for at least 8 hours. Fasting plasma glucose results between 100 to 125 mg/dL indicate increased risk for diabetes (prediabetes). Fasting plasma glucose results greater than or equal to 126 mg/dL meet the criteria for diagnosis of diabetes. In the absence of unequivocal hyperglycemia, results should be confirmed by repeat testing. In a patient with classic symptoms of hyperglycemia or hyperglycemic crisis, random plasma glucose results greater than or equal to 200 mg/dL meet the criteria for diagnosis of diabetes. Reference: Standards of Medical Care in Diabetes 2016, [place] [employer]. Diabetes Care. 2016.39(Suppl 1). BUN 7 - 21 mg/dL 13 Creatinine 0.58 - 0.96 mg/dL 0.58 Sodium 136 - 144 mmol/L 141 Potassium 3.7 - 5.1 mmol/L 3.9 Chloride 97 - 105 mmol/L 106 High CO2 22 - 30 mmol/L 25 Anion Gap 9 - 18 mmol/L 10 Estimated Glomerular Filtration Rate >=60 mL/min/1.73m 99 Comment: Estimated Glomerular Filtration Rate (eGFR) is calculated using the 2020 CKD-EPI creatinine equation. This equation utilizes serum creatinine, sex, and age as parameters. The creatinine assay has traceable calibration to isotope dilution-mass spectrometry. Refer to KDIGO guidelines for clinical interpretation. In patients with unstable renal function, e.g. those with acute kidney injury, the eGFR may not accurately reflect actual GFR. 05/01/2022 TYPE AND SCREEN Component 1 mo ago ABO A Rh(D) Positive Antibody Screen Negative HIstorical Ab Scr Status NEGATIVE 05/01/2022 CONFIRM BLOOD TYPE Component 1 mo ago ABO A Rh(D) Positive 04/07/2022 CA 125 CA 125: 19 (lab adult reference 0-38). No results found for: CA125 ASSESSMENT/PLAN 02/03/2022 Impression: Cystic adnexal mass(es) probably involving both adnexal. Left sided lesion is multi septated measuring approximately 16 x 10 cm. Right cystic lesion Measures approximately 5 cm. No ascites or adenopathy or carcinomatosis on CT scan in December. She gives a history of a pelvic mass going back several years. No source documents were available for my review today. She believes prior scans may have been done at [facility]. She had laboratory studies collected recently, the results are unavailable at today's visit, but she believe she was told her tumor markers were normal. Plan: I reviewed the natural history of pelvic cystic masses. The findings are not consistent with ovarian cancer but this has not been excluded. It is difficult to assess wether this mass is contributing to any abdominal discomfort which she says is intermittent. She has no sense any rapid increase in abdominal girth. No change in GI symptoms. No vaginal bleeding. She understands that she is at a higher then average risk of having a post operative complication given her functional status and MS if surgery is done to remove the lesions. At this point our shared decision is to allow me time to collect 1 or more documents regarding the mass that was assessed many years ago. Will also obtain results of recent blood test including CA 125 which was probably done. I will see her next month to review these findings. Consideration for surgery or re-assessment with US or CT Will be discussed at that time. 03/10/22 67 year old presenting with bilateral ovarian cysts (L>R) management. Reviewed normal CA-[address] images with patient today. Reviewed possibility of cyst drainage vs surgical removal. Reviewed high surgical risk given low performance status. Plan for transabdominal US to further characterize cyst progression and characteristics. Order placed for Green after 23 of March. Plan to return to office after US results - march. 04/07/22: Karrie Colmenares DO, MARICARMENA, HOME HEALTH TRAVEL PT PGY-2 67 year old female with bilateral adnexal cystic masses presents for follow up and discussion of management. -Reviewed most recent pelvic US from 03/31 which again shows bilateral septated adnexal cysts, L>R as below: - Within the right adnexa there is a 6.5 x 4.9 x 3.5 cm cystic structure - there is a 13.3 x 8.7 x 14.7 cm cystic structure. This has a mildly thickened internal septation. No significant vascular flow. - US impression states cysts are similar in size compared to CT done in December 2021 -Reviewed prior US from 2010 where cystic structures were present but smaller -Given extermination inspector presence of cysts and slow growth, low concern for cancer -thorough discussion with patient regarding natural progression of cysts including low likelihood of malignant process but inability to predict if they could cause bulk symptoms in the future. Discussed option of expectant management vs surgical management. Discussed that she would be at higher risk for surgical complications due to her MS. She is concerned about the possibility developing complications from the cysts and needing surgery in the future after possible further decline in health. -The risks of surgery were discussed including bleeding, infection, injury to surrounding organs including GI, , nerve or vascular structures. Possible blood clot following surgery was discussed. Average recovery following minimally invasive and open procedure was discussed. Additional risks including possible difficulty waking up from anesthesia given her MS were discussed. -She would like to proceed with surgical management at this time. She is physically unable to sign for herself so her accompanying caregiver (Latrell, MARÍA) signed her consent form in her presence after informed consent was obtained from the patient. He was not involved in the decision making process and acted only to sign in the setting of the patient's physical inability to sign. -Referral to anesthesia for preoperative testing and further discussion of specific anesthesia risks with MS -Plan for exam under anesthesia, laparoscopic BSO, removal of pelvic masses, possible removal of other structures if concern for cancer including uterus, omentum, lymph nodes, and any other concerning structures. Possible laparotomy. Tentatively planned for May 11. -Plan to admit for 24 hour observation after surgery, longer if indicated. 05/11/2022 Surgery - Laparoscopic bilateral salpingo-oophorectomy with biopsy of peritoneal cavity. 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 Tumor surveillance visits discussed with her. Symptoms or signs that would prompt earlier visit reviewed. See me in 6 months with CA 125 at that time. ATTESTATION: By signing my name below, I, Yen Horan, attest that this documentation has been prepared under the direction and in the presence of Mikel Whitehead MD. I, Mikel Whitehead MD, agree that the above note, as documented by my scribe, accurately describes my encounter with the patient today. Electronically signed:Alex Gentile, Mikel Whitehead MD, Physician, June 09, 2022 10:17 AM documented in this encounter [facility] 05-12-2022 Note HNO ID: [id number] Author: Cathy Mccord RN Service: Care Management Author Type: Registered Nurse Type: Care Mgt Progress Note Filed: 05/12/2022 3:27 PM Note Text: CARE MANAGEMENT DISCHARGE NOTE SERVICE DATE: 05/12/2022 SERVICE TIME: 3:26 PM LOS: 0 days Admission Date: 05/11/2022 DISCHARGE ARRANGEMENT (list agency and phone number) Discharge Arrangement: Extended Care Facility Provider Name: [facility] CAREGIVER ASSESSMENT: Caregiver is ready, willing and able to meet the patient's needs as recommended by the inter-professional team:: Yes HANDOFF COMMUNICATION: Handoff to: Primary Care Physician Primary Care Physician Name/Phone: Portillo Trujillo [phone] TRANSPORTATION ARRANGEMENTS: Transportation Arrangements: Other: See Comment ([facility] wheelchair van) ADDITIONAL CONTACT RESOURCES: n/a Orders completed for patient to discharge back to [facility]. They are picking patient up and transporting her via their wheelchair van. SIGNATURE: Cathy Mccord RN PATIENT NAME: Shin Rojo DATE: May 12, 2022 TIME: 3:26 PM PAGER/CONTACT #: [phone] [facility] 05-12-2022 Note HNO ID: [id number] Author: Cathy Mccord RN Service: Care Management Author Type: Registered Nurse Type: Care Mgt Progress Note Filed: 05/12/2022 1:42 PM Note Text: CARE MANAGEMENT PROGRESS NOTE SERVICE DATE: 05/12/2022 SERVICE TIME: 1:11 PM LOS: 0 days Needs Prior to Discharge: Accepting Facility;Discharge Transportation Notified by RN that patient is from [facility] and plan is for DC back today. Referral placed in [employer] to SNF. Have not received a response. VM left for Doreen in Admissions on her facility phone and cell phone requesting return call to confirm patient can return today. Updated patient at bedside of attempts to reach facility. 1:41 PM: Received return call from Doreen at [facility]. She states patient can return today and they are able to transport her. They plan to pick patient up around 3:30-4pm. RN notified. SIGNATURE: Cathy Mccord RN PATIENT NAME: Shin Rojo DATE: May 12, 2022 TIME: 1:11 PM PAGER/CONTACT #: [phone] [facility] 05-12-2022 Note HNO ID: [id number] Author: Vero Bryant DO Service: Gynecology Oncology Author Type: Resident Type: Progress Notes Filed: 05/12/2022 6:42 AM Note Text: PROGRESS NOTE - GYNECOLOGY ONCOLOGY SERVICE DATE: 05/12/2022 SERVICE TIME: 6:03 AM ATTENDING PHYSICIAN: Mikel Whiethead MD Subjective INTERVAL HISTORY OF PRESENT ILLNESS: hSin Rojo is post-operative day #1 s/p laparoscopic bilateral salpingo-oophorectomy with removal of associated bilateral adnexal masses and sigmoid adhesion biopsy. This morning she reports being able to get some rest. Her son brought her sandwich for dinner, she she was able to eat. She denies N/V, CP, SOB, and abdominal pain. She does also report that her call system is not functional, and so she has not been able to be adjusted in her bed for some time. REVIEW OF SYSTEMS: As in HPI. Objective PHYSICAL EXAM: BP 122/74 Pulse 95 Temp (Src) 98.6 (Oral) Resp 18 Ht 5' 3 (1.60m) Wt 187 lb 6.3 oz (85.0kg) SpO2 95% BMI 33.20 kg/(m2). O2 Therapy: Room Air, Liters: 2 GENERAL: Alert, no distress, cooperative SKIN: Skin color, texture, turgor normal. No rashes or lesions. NECK: No jugulovenous distention, Supple LUNGS: Lungs clear to auscultation. Good diaphragmatic excursion. CARDIAC: Normal S1 and S2; no rubs, murmurs, or gallops ABDOMEN: Soft, non-distended. Appropriately tender. Port site incisions are clean, dry, intact, with dressings in place. Suprapubic catheter in place draining light yellow urine EXTREMETIES: No edema, SCDs in place bilaterally DATA: Diagnostic tests reviewed for today's visit: Most recent labs and imaging results. Assessment/Plan 67 year old post-operative day #1 s/p laparoscopic bilateral salpingo-oophorectomy with removal of associated bilateral adnexal masses and sigmoid adhesion biopsy. #Post-operative state - Pain well controlled - Tolerating PO intake - Suprapubic catheter in place, UOP adequate - Not yet passing flatus #MS/quadriplegia - Continuing home gabapentin and baclofen - Patient reports she would be more comfortable not in the hospital, desires d/c this morning #Pelvic mass - s/p BSO and removal of masses - Final pathology pending Plan of care discussed with: Provider, RN, Patient. SIGNATURE: Vero Bryant DO PATIENT NAME: Shin Rojo DATE: May 12, 2022 TIME: 6:03 AM PAGER/CONTACT #: [phone] [facility] 05-11-2022 Note HNO ID: [id number] Author: Tio Ruano MD Service: Anesthesiology Author Type: Physician Type: Anesthesia Procedure Notes Filed: 05/11/2022 12:12 PM Note Text: ANESTHESIOLOGY PROCEDURE NOTE PIV General Information Procedure Start Time/Medication Administration: 05/11/2022 9:00 AM Patient Location: OR Staffing Anesthesiologist: Tio Ruano MD Performed by: anesthesiologist Preparation Sterility Preparation: hand hygiene performed prior to procedure, surgical cap used, mask used, sterile drape used during line insertion, skin prep agent completely dried prior to procedure Sterility Technique Not Completely Performed Due to Extreme Emergency: No Site Prep: Chloraprep Procedure Details Indication: need for IV access Needle Size/Type: 20 gauge angiocath Orientation: Right Location: Hand Imaging Guidance Used: No SIGNATURE: Reza Rees APRN.CRNA PATIENT NAME: Shin Rojo DATE: May 11, 2022 TIME: 9:27 AM CSN: [id number] [facility] 05-11-2022 Note HNO ID: [id number] Author: Tio Ruano MD Service: Anesthesiology Author Type: Physician Type: Anesthesia Procedure Notes Filed: 05/11/2022 12:12 PM Note Text: ANESTHESIOLOGY PROCEDURE NOTE PIV General Information Procedure Start Time/Medication Administration: 05/11/2022 7:30 AM Patient Location: OR Staffing Anesthesiologist: Tio Ruano MD SUPERVISING AIRPLANE PILOT: Reza Rees APRN.SUPERVISING AIRPLANE PILOT Performed by: SUPERVISING AIRPLANE PILOT Preparation Sterility Preparation: hand hygiene performed prior to procedure, surgical cap used, mask used, sterile drape used during line insertion, skin prep agent completely dried prior to procedure Sterility Technique Not Completely Performed Due to Extreme Emergency: No Site Prep: Chloraprep Procedure Details Indication: need for IV access Needle Size/Type: 22 gauge angiocath Orientation: Left Location: Wrist Imaging Guidance Used: No Medications Administered lidocaine (PF) 10 mg/mL (1 %) injection (XYLOCAINE) - INTRADERMAL 0.5 mg - 05/11/2022 7:30:00 AM SIGNATURE: Reza Rees APRN.SUPERVISING AIRPLANE PILOT PATIENT NAME: Shin Rojo DATE: May 11, 2022 TIME: 9:25 AM CSN: [id number] [facility] 05-11-2022 Note HNO ID: [id number] Author: Tio Ruano MD Service: Anesthesiology Author Type: Physician Type: Anesthesia Procedure Notes Filed: 05/11/2022 12:12 PM Note Text: ANESTHESIOLOGY PROCEDURE NOTE Airway General Information Procedure Start Time/Medication Administration: 05/11/2022 8:35 AM Patient location during procedure: OR Timeout Performed Pre-procedure: timeout performed Consent Obtained: Yes Patient identity confirmed: arm band and care project manager/team coach Staffing Anesthesiologist: Tio Ruano MD SUPERVISING AIRPLANE PILOT: Reza Rees APRN.SUPERVISING AIRPLANE PILOT Performed by: MAYA Indications and Patient Condition Indications for airway management: anesthesia and airway protection Preoxygenated: yes anesthesia circuit Patient position: sniffing Method: asleep Cricoid Pressure: No Manual In-Line Stabilization: No Difficult Mask: No Final Airway Details Final airway type: endotracheal airway Final Endotracheal Airway: ETT Cuffed: yes Successful intubation technique: video laryngoscopy Devices used: [place]es Endotracheal tube insertion site: oral Blade: [place]acia Blade size: #3 ETT size (mm): 7.0 Measured from: lips Measurement (cm): 24 Placement verified by: chest auscultation and capnometry Cormack-Lehane Classification: grade I - full view of glottis Number of attempts at approach: 1 Other Attempts Unsuccessful attempted endotracheal techniques: video laryngoscopy Failed airway: no Unrecognized esophageal intubation: no Airway not difficult SIGNATURE: Reza Rees APRN.SUPERVISING AIRPLANE PILOT PATIENT NAME: Shin Rojo DATE: May 11, 2022 TIME: 9:14 AM CSN: [id number] [facility] 05-08-2022 Note HNO ID: [id number] Author: Angi Storey APRN.[employer] IN[employer]KE WORKER Service: Anesthesiology Author Type: Nurse Practitioner Type: Progress Notes Filed: 05/08/2022 9:12 AM Note Text: Spoke with Kaycee in 's office- no medical clearance requested by surgeon. Spoke with care home and chest x-ray had not been done which was ordered by PCP preoperatively - they could not give me a reason as to why it was not completed- I relayed this information to anesthesia to see if they wanted the chest x-ray and per anesthesia - Dr. Elke allen to proceed with no chest x-ray. [facility] 05-04-2022 Note HNO ID: [id number] Author: Stephanie Cummings APRN.CAN INTAKE WORKER Service: General Surgery Author Type: Nurse Practitioner Type: Progress Notes Filed: 05/04/2022 12:54 PM Note Text: Summary: PST Reviewed red dot concerns and last office note of Dr. Trujillo with Dr. Manuel in anesthesia. OK to proceed with procedure as planned. [facility] 05-04-2022 Note HNO ID: [id number] Author: Stephanie Cummings APRN.KENNA Service: General Surgery Author Type: Nurse Practitioner Type: Progress Notes Filed: 05/04/2022 10:12 AM Note Text: In scanned docs on 04/30/2022, there is a note from Dr. Trujillo which states stable for OR on the EKG written results. LM otoniel Benoit at Dr. Whitehead's office asking if there is an actual clearance request sent. On Dr. Trujillo's note it states patient need EKG and CXR per op. I do have results of EKG but do not see CXR. [facility] 05-01-2022 Note HNO ID: [id number] Author: Leo Fair APRN.CAN INTAKE WORKER Service: ? Author Type: Nurse Practitioner Type: Progress Notes Filed: 05/01/2022 4:34 PM Note Text: Summary: PAT RED DOT CC TEODORO please review with anesthesia and see if further optimization is needed before surgery. Thank you! 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 Patient lost muscle strength significantly, non-ambulatory, lives at nursing facility, wheelchair-domínguez and need to use brigitte lift; neurogenic bladder with longstanding suprapubic catheter, denies SOB, vision is well, no recent worsening of symptoms Anemia - 10/20/21 HANDH 11.5/37.6. CBC ordered per surgeon will be drawn at PST. Atrial fibrillation - patient states years ago had only once, pt unsure if taken blood thinners before, but denies any issues since then. on ASA. Instructed patient to have SNF contact surgeon for instruction. HLD - on atorvastatin, pt not sure if taking zetia, not on med list provided by SNF, she only knows is taking medication for cholesterol [facility] 05-01-2022 History of Presen t illness Narrative Summary: PAT RED DOT CC TEODORO please review with anesthesia and see if further optimization is needed before surgery. Thank you! 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 Patient lost muscle strength significantly, non-ambulatory, lives at nursing facility, wheelchair-domínguez and need to use brigitte lift; neurogenic bladder with longstanding suprapubic catheter, denies SOB, vision is well, no recent worsening of symptoms Anemia - 10/20/21 H&H 11.5/37.6. CBC ordered per surgeon will be drawn at PST. Atrial fibrillation - patient states years ago had only once, pt unsure if taken blood thinners before, but denies any issues since then. on ASA. Instructed patient to have SNF contact surgeon for instruction. HLD - on atorvastatin, pt not sure if taking zetia, not on med list provided by SNF, she only knows is taking medication for cholesterol documented in this encounter [facility] 05-01-2022 History and physical note HISTORY AND PHYSICAL EXAMINATION SERVICE DATE: 04/30/2022 SERVICE TIME: 3:54 PM PRIMARY CARE PHYSICIAN: Portillo Trujillo REASON FOR VISIT: Shin Rojo is a 67 year old female who is scheduled for Procedure(s): LAPAROSCOPY WITH OOPHORECTOMY AND SALPINGECTOMY (Bilateral) EXAM UNDER ANESTHESIA PELVIC / VAGINAL (N/A) LAPAROSCOPIC BILAT SALPINGO-OOPHORECTOMY W/ TOTAL OMENTECTOMY TOTAL ABD HYSTERECTOMY FOR MALIGNANCY (N/A) LAPAROSCOPY SURGICAL W/RETROPERITONEAL LYMPH NODE SAMPLING SINGLE OR MULTIPLE (N/A) LAPAROTOMY PELVIC (N/A) TRANSFUSION BLOOD (N/A) at the request of Dr. Mikel Whitehead for. My final recommendation will be communicated back to the requesting physician by way of shared medical record or letter. Subjective The patient has the following: ACTIVE PROBLEM LIST Myalgia and Myositis, Unspecified Sacroiliitis, Not Elsewhere Classified (Hcc) Nonallopathic Lesion of Lower Extremities, Not Elsewhere Classified Nonallopathic Lesion of Pelvic Region, Not Elsewhere Classified Nonallopathic Lesion of Sacral Region, Not Elsewhere Classified Nonallopathic Lesion of Lumbar Region, Not Elsewhere Classified Nonallopathic Lesion of Thoracic Region, Not Elsewhere Classified Nonallopathic Lesion of Upper Extremities, Not Elsewhere Classified Nonallopathic Lesion of Cervical Region, Not Elsewhere Classified Ms (Multiple Sclerosis) (Hcc) Retention of Urine, Unspecified COVID-19 Immunization Status Overdue - COVID-19 VACCINE (1) Overdue - never done No completion, postpone, frequency change, or communication history exists for this topic. CHIEF COMPLAINT: Pre surgical testing HPI: Patient presents to [facility] for the above procedure. Shin is a 67 yo female who has bilat pelvic cystic masses. She also suffers from MS which she lost muscle strength significantly, has suprapubic catheter due to neurogenic bladder. Occasional fullness feeling and discomfort at lower abdomen, mostly on Left side of abdomen. Patient states when having dependent movements such as bringing left knee to chest she cannot tolerate going too far and may have muscle spasms. Patient denies any other problems or concerns at this time. Risks and benefits of the procedure discussed by Surgeon and patient agreed to proceed with planned procedure. REVIEW OF SYSTEMS: General: Negative for: unintentional weight change, malaise and fever. Neurological: Occasional muscle spasms with touch, such as moving legs Positive for: multiple sclerosis. Negative for: delirium, dementia, seizures, TIA and strokes. Respiratory: Negative for: asthma, COPD, current cough, dyspnea, pneumonia within 6 weeks, URI < 2 weeks and obstructive sleep apnea. Cardiovascular: Positive for: atrial fibrillation and hyperlipidemia Negative for: abdominal aortic aneurysm, angina, CAD, chest pain, DVT/PE and recent IN. GI: Negative for: abdominal pain, hepatitis, liver disease, nausea and vomiting. : Positive for: indwelling catheter (SP catheter). Negative for: dysuria, flank pain and hematuria. 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 Endocrine: Negative for: diabetes mellitus, hyperthyroidism, hypothyroidism and hyperparathyroidism. Hematology: Positive for: anemia, iron deficiency anemia and chronic anti-coagulation/platelet meds. Patient is on anti-coagulation/platelet medication(s): Aspirin. Negative for: factor V Leiden, hemophilia and von Willebrand disease. Oncology: No history of CA metastasis, chemo within 30 days, or radiotherapy within 90 days. No history of oncological symptoms or problems. Psych: Positive for: depression. Negative for: anxiety. Musculoskeletal: Negative for joint pain or swelling, back pain or muscle pain. Skin: Negative for lesions, rash and itching. PAST MEDICAL HISTORY Diagnosis Date Anemia Atrial fibrillation (HCC) Functional quadriplegia (HCC) Hyperlipidemia Insomnia Lack of coordination Major depressive disorder Multiple sclerosis (HCC) Muscle weakness (generalized) Neurogenic bladder Pulmonary disease Retention of urine, unspecified 03/04/2018 PAST SURGICAL HISTORY Procedure Laterality Date PAST SURGICAL HISTORY OF nasal septum repair PAST SURGICAL HISTORY OF suprapubic catheter placement PAST SURGICAL HISTORY OF 2020 remove of bladder stone REPAIR INCISIONAL HERNIA,REDUCIBLE 1991 per patient left groin area FAMILY HISTORY Problem Relation Age of Onset Diabetes Mother Heart disease Father Stroke Father Social History Tobacco Use Smoking status: Never Smokeless tobacco: Never Vaping Use Vaping Use: Never used Substance Use Topics Alcohol use: No Drug use: No Prior to Admission medications as of 05/01/22 1528 Medication Sig Last Dose Taking acetaminophen (TYLENOL) 500 mg tablet Take 1,000 mg by mouth. Taking Yes atorvastatin (LIPITOR) 40 mg tablet Take 40 mg by mouth. Taking Yes calcium carbonate 600 mg-cholecalciferol 400 units 600 mg-10 mcg (400 unit) tab Take by mouth. Taking Yes famotidine (PEPCID) 20 mg tablet Take 20 mg by mouth. Taking Yes ondansetron (ZOFRAN) 4 mg tablet Take by mouth. Taking Yes Vitamin E, dl, acetate, (VITAMIN E) 400 unit capsule Take by mouth. Taking Yes zinc oxide 20 % ointment Apply to affected area. Taking Yes milk thistle/NAC/dandel/turmer (LIVER COMPLEX ORAL) Take by mouth. Taking Yes tiZANidine (ZANAFLEX) 2 mg tablet Take 2 mg by mouth. Taking Yes multivitamin tablet Take 1 tablet by mouth once daily. Taking Yes aspirin, enteric coated (ASPIRIN, ENTERIC COATED) 81 mg EC tablet Take 81 mg by mouth once daily. Taking Yes loratadine (CLARITIN) 10 mg tablet Take 10 mg by mouth once daily. Taking Yes omeprazole (PRILOSEC) 20 mg capsule Take 20 mg by mouth once daily. Taking Yes cyanocobalamin (VITAMIN B-12) 1,000 mcg tab Take 1,000 mcg by mouth once daily. Taking Yes baclofen (LIORESAL) 20 mg tablet Take 20 mg by mouth three times daily. Taking Yes DOCUSATE SODIUM ORAL Take 100 mg by mouth as needed. Taking Yes Ascorbic Acid 1,000 mg tablet Take 1,000 mg by mouth twice daily. Taking Yes menthol (BIOFREEZE) 4 % topical gel Apply 4 % to affected area as needed. Taking Yes HYDROcodone-acetaminophen (NORCO) 5-325 mg per tablet Take 1 tablet by mouth every 6 hours as needed for Pain. Taking Yes melatonin 1 mg tab Take 1 mg by mouth at bedtime as needed. Taking Yes magnesium hydroxide (MOM) 400 mg/5 mL suspension Take 30 mL by mouth once daily as needed for Constipation. Taking Yes sodium chloride (AYR, OCEAN) 0.65 % nasal spray Use 1 [place] in the nose every 2 hours as needed. Taking Yes ibuprofen (MOTRIN) 200 mg tablet Take 200 mg by mouth every 8 hours as needed for Pain. Taking Yes lidocaine (LIDODERM) 5 % Apply 1 Patch as directed as needed. Taking Yes senna (SENOKOT) 8.6 mg tab Take 8.6 mg by mouth once daily as needed (Constipation). Taking Yes ergocalciferol 50,000 unit capsule (VITAMIN D2, DRISDOL) Take 50,000 Units by mouth once each week. Taking Yes gabapentin (NEURONTIN) 300 mg capsule Take 300 mg by mouth three times daily. Taking Yes carboxymethylcellulose sodium (REFRESH OPHTHALMIC) Use in eyes. ezetimibe (ZETIA) 10 mg tablet Take 10 mg by mouth daily at bedtime. Patient not taking: Reported on 05/01/2022 Not Taking CRANBERRY FRUIT EXTRACT (CRANBERRY ORAL) Take 400 mg by mouth twice daily. No medication comments found. ALLERGIES Allergen Reactions All Cillins [Other] Ciprofloxacin Mental Status Change Nadolol Unknown Penicillin V Rash Patient doubt having PCN allergy, states had amoxicillin ear drops was okay Pregabalin Unknown Objective PHYSICAL EXAM: General: alert and oriented and obese. Pertinent negatives noted - not distressed, not confused and not disoriented. Skin: normal color, no rash or lesions. HEENT: No additional findings for patient's neck. Cardiovascular: regular rate and rhythm, normal S1 and S2, no rub, murmurs, or gallop. Respiratory: normal breath sounds, no wheezes or crackles. No chest wall deformity or tenderness. Abdomen: bowel sounds present and soft. Pertinent negatives noted - not tender. Extremities: Positive for edema (+1 edema left more than right). Neurological: Positive for abnormal gait (pt unambulatory) and limb weakness. Pertinent negatives noted - no confusion and no abnormal sensation. Limb weakness located left UE, right UE, left LE and right LE. PAIN ASSESSMENT: Pain Pain Level: 0 VITALS: BP 138/66 Pulse 95 Temp 97 Resp 16 Ht 5' 2 (1.58m) Wt 170 lb (77.1kg) SpO2 95% BMI 31.09 kg/(m^2). Diagnostic tests reviewed for today's visit: Lab Value Units Date High Low HB No results within date range. HCT No results within date range. WBC No results within date range. PLT No results within date range. NA No results within date range. K No results within date range. GLUC No results within date range. BUN No results within date range. CREAT 0.60 mg/dL 12/25/2021 1.30 0.60 PTSEC No results within date range. INR No results within date range. APTT No results within date range. ALT No results within date range. AST No results within date range. TBILI No results within date range. TSH No results within date range. Lab Value Units Date High Low HCGQT No results within date range. UHCG No results within date range. HCG, BODY* No results within date range. Lab Value Units Date High Low ABORHD No results within date range. ABSCREEN No results within date range. No results found for: HBA1C No results found for this or any previous visit (from the past 8760 hour(s)). No results found for this or any previous visit (from the past 86232 hour(s)). Assessment No problem-specific Assessment & Plan notes found for this encounter. Dior Activity Status Index: METS: DASI Score: 0 (Patient non-ambulatory, wheelchair-domínguez due to severe MS Patient denies chest pain or SOB when doing dependent exercises) Patient is totally dependent (Patient non-ambulatory, wheelchair-domínguez due to severe MS). Clinical Frailty Scale: 7. Severely frail ARISCAT Score: Age: 51-80 Preoperative SpO2: >=96% Respiratory infection in the last month: No Preoperative anemia: No Surgical incision: upper abdominal Duration of surgery: >3 hrs Emergency procedure: No ARISCAT Score: 41 ANESTHESIA FINDINGS: Intubation History: No prior intubation Significant Anesthesia Considerations: patient is nervous about getting put to sleep completely potential slow emergence Airway History: Neck ROM intact, has neck pain No prior intubation I - PHYSICAL EVALUATION DENTAL Dental findings: teeth intact and missing tooth/teeth. II - ANESTHESIA PLAN Anesthetic Plan: general Prepared for Surgery: CONSULTS: Patient does not require consults for optimization at this time Planned Anesthetic: general The Following Tests/Procedures Have Been Initiated: Orders Placed This Encounter Confirm Blood Type Order Comments: Draw separate from TSCR Standing Status: Future Standing Expiration Date: 06/30/2022 Order Specific Question: Did Blood Bank direct you to place this order: Answer: No - Presurgical Workflow acetaminophen (TYLENOL) 500 mg tablet Sig: Take 1,000 mg by mouth. atorvastatin (LIPITOR) 40 mg tablet Sig: Take 40 mg by mouth. calcium carbonate 600 mg-cholecalciferol 400 units 600 mg-10 mcg (400 unit) tab Sig: Take by mouth. famotidine (PEPCID) 20 mg tablet Sig: Take 20 mg by mouth. ondansetron (ZOFRAN) 4 mg tablet Sig: Take by mouth. Vitamin E, dl, acetate, (VITAMIN E) 400 unit capsule Sig: Take by mouth. zinc oxide 20 % ointment Sig: Apply to affected area. Implantable Devices: suprapubic catheter, possible hernia mesh Patient has the following medical conditions which may affect heather-operative course Multiple Sclerosis - diagnosed at age 56. Patient lost muscle strength significantly, non-ambulatory, lives at nursing facility, wheelchair-domínguez and need to use brigitte lift; neurogenic bladder with longstanding suprapubic catheter, denies SOB, vision is well, no recent worsening of symptoms Anemia - 10/20/21 H&H 11.5/37.6. CBC ordered per surgeon will be drawn at PST. Atrial fibrillation - patient states years ago had only once, pt unsure if taken blood thinners before, but denies any issues since then. on ASA. Instructed patient to have SNF contact surgeon for instruction. HLD - on atorvastatin, pt not sure if taking zetia, not on med list provided by SNF, she only knows is taking medication for cholesterol EKG 04/28/22 on paper chart. Pt instructed to Hold DOS. Pt instructed to contact surgeon and prescribing provider for instructions regarding blood thinners. The Following Tests/Procedures Have Been Initiated: CBC, CMP, T&S, COVID testing ordered per surgeon. ABO ordered per PRINTING ENGINEER. Assessment/Plan Bilateral tubo-ovarian mass [N83.8] PLAN Diagnosis: Planned Procedure: Procedure(s): LAPAROSCOPY WITH OOPHORECTOMY AND SALPINGECTOMY (Bilateral) EXAM UNDER ANESTHESIA PELVIC / VAGINAL (N/A) LAPAROSCOPIC BILAT SALPINGO-OOPHORECTOMY W/ TOTAL OMENTECTOMY TOTAL ABD HYSTERECTOMY FOR MALIGNANCY (N/A) LAPAROSCOPY SURGICAL W/RETROPERITONEAL LYMPH NODE SAMPLING SINGLE OR MULTIPLE (N/A) LAPAROTOMY PELVIC (N/A) TRANSFUSION BLOOD (N/A) Instructions Given to Patient: Instructions located in the after visit summary. Patient given verbal and written preop instructions and voices comprehension and compliance. SIGNATURE: Leo Fair APRN.CNP PATIENT NAME: Shin Rojo DATE: April 30, 2022 TIME: 6:02 PM PAGER/CONTACT #: documented in this encounter [facility] 04-30-2022 Instructions Leo Fair APRN.CNP - 04/30/2022 6:02 PM EDT PATIENT PREOPERATIVE INSTRUCTIONS Your surgeon has scheduled for your procedure at this surgery center: [facility]: [phone], [address] [id number] Please enter through the main entrance and proceed to the blue elevators. The surgery [place] [facility] is located to the left of the blue elevator. Please read below carefully for your personalized instructions. Arrival Time for Surgery: DATE: 05/11/22 OR TIME: 8AM CHECK IN TIME: 6AM Please be aware that emergency situations arise, which may delay or change your surgical time. If this happens, we will notify you as soon as possible and regret any inconvenience. Requirement for Vaccinations : 72-hour period between getting vaccine and date of surgery. Dietary Restrictions: - Nothing to eat after midnight. You may have 12 ounces of clear liquids ( water, Gatorade, apple juice, carbonated beverage, clear tea or black coffee) until 4 hours before your surgery. This is important because if you do, your surgery may have to be cancelled Blood Thinning Medications: - Stop NSAIDS (Ibuprofen, Advil, Aleve, Motrin, Celebrex, Mobic, etc.) 7 days before surgery, as directed by your surgeon. You may take Tylenol (Acetaminophen) or any of your pain medications that do not contain aspirin or NSAIDS as needed. IF YOU TAKE ANY OF THE FOLLOWING BLOOD THINNERS, PLEASE CONTACT YOUR SURGEON AND THE PHYSICIAN WHO PRESCRIBES IT FOR YOU IN ORDER TO GET PERIOPERATIVE INSTRUCTIONS SOON POSSIBLE. BLOOD THINNERS: Aspirin , Coumadin, Plavix, Eliquis, Pradaxa, Xarelto, Lovenox, Brilinta, Effient, Savaysa, Arixtra, etc - Stop Vitamin E, fish oil, multivitamins, Marijuana, CBD oil and other over the counter herbals and dietary supplements 7 days before surgery. -This would not apply to cancer patients who are prescribed Marinol or any other prescription form on marijuana or CBD. -exception Dr. Booth and Dr. Storm want their patients npo at midnight. Medications: Approved medications to take the morning of surgery with a sip of water: BP, HCTZ, Heart, thyroid, psych, seizure, and pain medications excluding NSAIDS. Use inhalers as prescribed. Please bring inhalers. Diabetes Please follow up with the provider that manages your diabetes and how to prepare you for surgery. If you are taking the following medications for Type 2 diabetes: Canagliflozin (INVOKANA), dapagliflozin (FARXIGA), and empagliflozin (JARDIANCE) should each be discontinued at least 3 days before scheduled surgery. Ertugliflozin (STEGLATRO) should be discontinued at least four days before scheduled surgery. Bring your Glucometer to [facility] if you are scheduled in [place] for OR. If you have a stimulator, implant or pump that requires a remote please bring the remote with you day of surgery. Erectile dysfunction: If you take any medications for erectile dysfunction- Cialis (Tadalafil), Levitra, Staxyn, (Vardenafil), Viagra (Sildenenafil). Please do not take these for 48 hours before surgery. Pain Medications: Tylenol for pain as needed and if you are not allergic to. Medications to be taken with small amount of fluid on the morning of surgery: If you start any new medications after today's visit, please contact the surgeon's office. Important Reminders: - If you use CPAP/BIPAP, bring the machine with you to the surgery center. - If you are prescribed inhalers for breathing, continue using them AND bring them to the surgery center. - Candy, mints, gum and tobacco products are NOT permitted the morning of surgery. - Hearing aids, dentures and glasses may be worn the morning of surgery. - NO jewelry, body piercings, makeup, hairpins or contacts are to be worn the day of surgery. -Oral hygiene and a shower or bath is required the evening before or the morning of surgery. Use the Hibiclens body wash supplied to you along with the instruction. - NO lotion, creams, powders or deodorants on the skin the day of surgery -Wear loose, comfortable clothing that will accommodate bandages. -Your length of stay will be determined by your surgeon - You will need to have someone else (Family or friend) drive you home once discharged from the hospital. You are not allowed to drive yourself home after surgery. - YOU MUST HAVE A RESPONSIBLE SPOOL SANDER TAKE YOU HOME. A VACUUM CLEANER REPAIR PERSON, CAB OR UBER SPOOL SANDER CANNOT BE MADE A RESPONSIBLE SPOOL SANDER. - We recommend that a responsible person stays with you overnight to take care of you. - You cannot stay in a hotel alone after outpatient surgery. You will not be permitted to have your surgery, if you do not have someone to take care of you. CCAG: Given COVID 19 pandemic, one visitor is allowed in the hospital. They may wait in the surgery waiting room while you are in surgery but must wear a mask. Only one visitor will be permitted to visit you while your admitted after surgery. If you develop symptoms such as a fever, cold, or flu, or have other changes to your health within TWO DAYS of scheduled surgery or the morning of surgery, please contact the surgery center above. Personal Belongings: - Leave ALL valuables and money at home or with family members. - You will need a form of ID and insurance card to check in the morning of surgery. - You will have to wear a hospital gown during your stay but if you wish to bring undergarments for after surgery you may. Ambulatory surgery center [place]- orthopedic patients needing a walker should bring the walker into the building day of surgery. Orthopedic patients having surgery [facility] listed as outpatient should bring their walker into the building. Orthopedic patients having surgery [facility] listed as to be admitted should leave their walkers in the car or with a family member. Delorisiclens provided Leo Fair APRN.CNP 04/30/22 [address] in this encounter [facility] 04-24-2022 Miscellaneous Notes Returned patents call about rescheduling the PST, advised we rescheduled for 05/01/22 at 3 [address] and she understood and the change helped her schedule. [place] 04/24/[address] encounter [facility] 04-07-2022 Note HNO ID: [id number] Author: Karrie Colmenares, DO Service: ? Author Type: Resident Type: Progress Notes Filed: 04/07/2022 1:20 PM Note Text: Gynecologic Oncology [facility] Follow up visit Date of service: 04/07/2022 PROBLEM/CC: Shin Rojo presents for follow-up. HPI: Ms. 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 Diagnosis with MS at 56. Has significantly lost muscle strength. Lives at nursing facility and uses a wheelchair and brigitte lift. Last office visit: 03/10/22 HISTORIES: PAST MEDICAL HISTORY Diagnosis Date - Anemia - Atrial fibrillation (HCC) - Functional quadriplegia (HCC) - Hyperlipidemia - Insomnia - Lack of coordination - Major depressive disorder - Multiple sclerosis (HCC) - Muscle weakness (generalized) - Neurogenic bladder - Pulmonary disease - Retention of urine, unspecified 03/04/2018 PAST SURGICAL HISTORY Procedure Laterality Date - REPAIR INCISIONAL HERNIA,REDUCIBLE 1992 per patient left groin area FAMILY HISTORY Problem Relation Age of Onset - Diabetes Mother - Heart disease Father - Stroke Father SOCIAL HISTORY: Social History Tobacco Use - Smoking status: Never Smoker - Smokeless tobacco: Never Used Substance Use Topics - Alcohol use: No - Drug use: No Marital Status: PAST GYNECOLOGIC HISTORY: OB History No obstetric history on file. LMP: No LMP recorded. Patient is postmenopausal. HEALTH MAINTENANCE: Last pap: Last mammogram: Last colonoscopy: ALLERGIES Allergen Reactions - All Cillins [Other] - Ciprofloxacin Mental Status Change - Nadolol Unknown - Penicillin V - Pregabalin Unknown carboxymethylcellulose sodium (REFRESH OPHTHALMIC) Use in eyes. milk thistle/NAC/dandel/turmer (LIVER COMPLEX ORAL) Take by mouth. tiZANidine (ZANAFLEX) 2 mg tablet Take 2 [...] NASAL) 0.65 % nasal spray Use 1 [place] in the nose every 2 hours as [...] 300 mg by mouth three times daily. INTERVAL HISTORY: No significant changes in health since last visit. Recently had her suprapubic catheter changed, has it changed routinely every 18-21 days. Her facility was in lockdown due to covid but she avoided infection. Remains in a wheelchair and reports she is unable to use her hands to write or feed herself due to severe carpal tunnel, however this is ongoing and is not changed from prior visit. PHYSICAL EXAM: VITALS: BP 129/69 (BP Site: Right Arm, BP Position: Sitting, BP Cuff Size: Large Adult) Pulse 90 Ht 158.8 cm (5' 2.5 ) SpO2 95% BMI 30.60 kg/m? GENERAL: in tiltable wheel chair. She is alert, cooperative and responds appropriately. no acute distress. Accompanied by MARÍA SAMS from facility. HEENT: Normocephalic, atraumatic, mask on LUNGS: Respirations unlabored on RA. HEART: Regular rate. ABDOMEN: soft, distended, no tenderness to palpation PELVIC: deferred EXTREMITIES: No significant movements of bilateral hands and fingers, unable to hold pen RESULTS: CA 125: 19 (lab adult reference 0-38). 12/04/21: Transabdominal US Suprapubic catheter. The uterus and ovaries are not identified. The bladder is empty. Superior to the catheter there is a cystic mass containing septations, [id number] cm. Conclusion: hypoechoic pelvic mass, etiology undetermined. 12/25/2021 CT ABD/PEL IMPRESSION: 1. 14.8 x 9.8 x 9.8 cm complex septat (more content not included)... [facility] 04-07-2022 History of Presen t illness Narrative Gynecologic Oncology [facility] Follow up visit Date of service: 04/07/2022 PROBLEM/CC: Shin Rojo presents for follow-up. HPI: Ms. 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 Diagnosis with MS at 56. Has significantly lost muscle strength. Lives at nursing facility and uses a wheelchair and brigitte lift. Last office visit: 03/10/22 HISTORIES: PAST MEDICAL HISTORY Diagnosis Date Anemia Atrial fibrillation (HCC) Functional quadriplegia (HCC) Hyperlipidemia Insomnia Lack of coordination Major depressive disorder Multiple sclerosis (HCC) Muscle weakness (generalized) Neurogenic bladder Pulmonary disease Retention of urine, unspecified 03/04/2018 PAST SURGICAL HISTORY Procedure Laterality Date REPAIR INCISIONAL HERNIA,REDUCIBLE 1991 per patient left groin area FAMILY HISTORY Problem Relation Age of Onset Diabetes Mother Heart disease Father Stroke Father SOCIAL HISTORY: Social History Tobacco Use Smoking status: Never Smoker Smokeless tobacco: Never Used Substance Use Topics Alcohol use: No Drug use: No Marital Status: PAST GYNECOLOGIC HISTORY: OB History No obstetric history on file. LMP: No LMP recorded. Patient is postmenopausal. HEALTH MAINTENANCE: Last pap: Last mammogram: Last colonoscopy: ALLERGIES Allergen Reactions All Cillins [Other] Ciprofloxacin Mental Status Change Nadolol Unknown Penicillin V Pregabalin Unknown carboxymethylcellulose sodium (REFRESH OPHTHALMIC) Use in eyes. milk thistle/NAC/dandel/turmer (LIVER COMPLEX ORAL) Take by mouth. tiZANidine (ZANAFLEX) 2 mg tablet Take 2 [...] NASAL) 0.65 % nasal spray Use 1 [place] in the nose every 2 hours as [...] 300 mg by mouth three times daily. INTERVAL HISTORY: No significant changes in health since last visit. Recently had her suprapubic catheter changed, has it changed routinely every 18-21 days. Her facility was in lockdown due to covid but she avoided infection. Remains in a wheelchair and reports she is unable to use her hands to write or feed herself due to severe carpal tunnel, however this is ongoing and is not changed from prior visit. PHYSICAL EXAM: VITALS: BP 129/69 (BP Site: Right Arm, BP Position: Sitting, BP Cuff Size: Large Adult) Pulse 90 Ht 158.8 cm (5' 2.5 ) SpO2 95% BMI 30.60 kg/m GENERAL: in tiltable wheel chair. She is alert, cooperative and responds appropriately. no acute distress. Accompanied by MARÍA SAMS from facility. HEENT: Normocephalic, atraumatic, mask on LUNGS: Respirations unlabored on RA. HEART: Regular rate. ABDOMEN: soft, distended, no tenderness to palpation PELVIC: deferred EXTREMITIES: No significant movements of bilateral hands and fingers, unable to hold pen RESULTS: CA 125: 19 (lab adult reference 0-38). 12/04/21: Transabdominal US Suprapubic catheter. The uterus and ovaries are not identified. The bladder is empty. Superior to the catheter there is a cystic mass containing septations, [id number] cm. Conclusion: hypoechoic pelvic mass, etiology undetermined. 12/25/2021 CT ABD/PEL IMPRESSION: 1. 14.8 x 9.8 x 9.8 cm complex septated cystic mass in the left adnexa. Adjacent to this lesion along the right side is a bilobed cystic mass measuring 3.9 x 6.1 x 3.9 cm. Ovarian neoplasm is a primary concern. WRAPPER CASHIER consultation is recommended. 2. No ascites or evidence of an omental mass. No lymphadenopathy. RESULT: Liver: A 0.9 cm hypodensity at the anterior segment right hepatic lobe is too small to characterize but likely a cyst. Biliary: No bile duct dilation. Gallbladder is unremarkable. Spleen: No mass. No splenomegaly. Pancreas: No mass or duct dilation. Adrenals: No mass. Kidneys: Renal cortical scarring at the upper portions of both kidneys. No renal mass. No hydronephrosis. GI tract: No dilation or wall thickening. Normal appendix. Lymph nodes: No abdominal or pelvic lymphadenopathy. Mesentery/Peritoneum: No ascites or mass. Retroperitoneum: No mass. Vasculature: - Abdominal aorta and iliac arteries: No aneurysm. - Celiac and SMA: Patent without stenosis. - Portal venous system (SMV, splenic vein, portal vein and branches): Patent. - Hepatic veins: Patent. Retroaortic left renal vein as a normal variant. Pelvis: Large multiloculated multiseptated cystic mass in the left adnexa measures 14.7 x 9.8 x 9.8 cm. Adjacent to this lesion on the right side is a bilobed cystic mass measuring 3.9 x 6.1 x 3.9 cm. No pelvic ascites. Uterus is present. Urinary bladder is decompressed with a Hopkins catheter. Bones/Soft Tissues: Thoracolumbar scoliosis convex to the left. Bones are of diffusely decreased density. No suspicious or destructive bone lesion. Lower thorax: Subsegmental atelectasis/scarring at the lung bases. Procurement Buyer (topogram) images: No additional findings 03/31/22 Transabdominal Pelvic US: IMPRESSION: 1. Septated cystic lesion of the left adnexa. This appears similar compared to CT from 2 months ago. A cystic ovarian neoplasm is again the primary consideration. Consider MRI of the pelvis or gynecologic assessment. 2. There is a relatively simple appearing mildly septated cystic lesion of the right adnexa. Correlation with MRI or gynecologic consult is again recommended. No normal ovarian tissue is seen. Vascular waveforms are not able to be assessed. RESULT: Uterus size: 8.1 x 3.7 x 4.1 cm -Orientation: Anteverted -Myometrium: Normal sonographic appearance. -Endometrial echo complex: 0.1 cm . Normal in appearance. -Cervix: normal Right ovary: A normal-appearing ovary is not able to be visualized. Within the right adnexa there is a 6.5 x 4.9 x 3.5 cm cystic structure. Assessment is somewhat degraded by transabdominal only technique. Left ovary: A normal-appearing left ovary is not visualized. In the left adnexa there is a 13.3 x 8.7 x 14.7 cm cystic structure. This has a mildly thickened internal septation. No significant vascular flow. Pelvis free fluid: No free fluid is seen. Urinary bladder was empty secondary to a catheter. ASSESSMENT & PLAN: 02/03/2022 Impression: Cystic adnexal mass(es) probably involving both adnexal. Left sided lesion is multi septated measuring approximately 16 x 10 cm. Right cystic lesion Measures approximately 5 cm. No ascites or adenopathy or carcinomatosis on CT scan in December. She gives a history of a pelvic mass going back several years. No source documents were available for my review today. She believes prior scans may have been done at [facility]. She had laboratory studies collected recently, the results are unavailable at today's visit, but she believe she was told her tumor markers were normal. Plan: I reviewed the natural history of pelvic cystic masses. The findings are not consistent with ovarian cancer but this has not been excluded. It is difficult to assess wether this mass is contributing to any abdominal discomfort which she says is intermittent. She has no sense any rapid increase in abdominal girth. No change in GI symptoms. No vaginal bleeding. She understands that she is at a higher then average risk of having a post operative complication given her functional status and MS if surgery is done to remove the lesions. At this point our shared decision is to allow me time to collect 1 or more documents regarding the mass that was assessed many years ago. Will also obtain results of recent blood test including CA 125 which was probably done. I will see her next month to review these findings. Consideration for surgery or re-assessment with US or CT Will be discussed at that time. Documentation from my notes of previous visit of Visit date not found was copied and pasted, documentation has been reviewed and edited as necessary and is current for today. ASSESSMENT & PLAN: 03/10/22 67 year old presenting with bilateral ovarian cysts (L>R) management. Reviewed normal CA-[address] images with patient today. Reviewed possibility of cyst drainage vs surgical removal. Reviewed high surgical risk given low performance status. Plan for transabdominal US to further characterize cyst progression and characteristics. Order placed for Green after 23 of March. Plan to return to office after US results - end march. 04/07/22: 67 year old female with bilateral adnexal cystic masses presents for follow up and discussion of management. -Reviewed most recent pelvic US from 03/31 which again shows bilateral septated adnexal cysts, L>R as below: - Within the right adnexa there is a 6.5 x 4.9 x 3.5 cm cystic structure - there is a 13.3 x 8.7 x 14.7 cm cystic structure. This has a mildly thickened internal septation. No significant vascular flow. - US impression states cysts are similar in size compared to CT done in December 2021 -Reviewed prior US from 2010 where cystic structures were present but smaller -Given extermination inspector presence of cysts and slow growth, low concern for cancer -thorough discussion with patient regarding natural progression of cysts including low likelihood of malignant process but inability to predict if they could cause bulk symptoms in the future. Discussed option of expectant management vs surgical management. Discussed that she would be at higher risk for surgical complications due to her MS. She is concerned about the possibility developing complications from the cysts and needing surgery in the future after possible further decline in health. -The risks of surgery were discussed including bleeding, infection, injury to surrounding organs including GI, , nerve or vascular structures. Possible blood clot following surgery was discussed. Average recovery following minimally invasive and open procedure was discussed. Additional risks including possible difficulty waking up from anesthesia given her MS were discussed. -She would like to proceed with surgical management at this time. She is physically unable to sign for herself so her accompanying caregiver (MARÍA Sams) signed her consent form in her presence after informed consent was obtained from the patient. He was not involved in the decision making process and acted only to sign in the setting of the patient's physical inability to sign. -Referral to anesthesia for preoperative testing and further discussion of specific anesthesia risks with MS -Plan for exam under anesthesia, laparoscopic BSO, removal of pelvic masses, possible removal of other structures if concern for cancer including uterus, omentum, lymph nodes, and any other concerning structures. Possible laparotomy. Tentatively planned for May 11. -Plan to admit for 24 hour observation after surgery, longer if indicated. Components of documentation from prior gynecology oncology office notes were copied and pasted, documentation has been reviewed and edited as necessary and is current for today. Karrie Colmenares DO [facility] PT PGY-2 04/07/2022 11:33 AM Patient examined and discussed with Dr. Whitehead. documented in this encounter [facility] 03-10-2022 Note HNO ID: [id number] Author: Mikel Whitehead MD Service: ? Author Type: Physician Type: Progress Notes Filed: 03/10/2022 10:44 AM Note Text: Gynecologic Oncology [facility] Follow up visit Date of service: 03/10/2022 PROBLEM/CC: Shin Rojo presents for follow-up. HPI: Ms. 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 Concerned about abdominal girth growth and arms heavy. Denies CP, SOB, N/V, vaginal bleeding or rectal bleeding. States food is not that tasty so she is not sure why she would be gaining weight. Does endorse LLQ abdominal pain that is usually achy and sometimes sharp. Does take norco, tylenol, ibuprofen prn for hip pain - usually 1x/month. Diagnosis with MS at 56. Has significantly lost muscle strength. senior living insists she use a brigitte and wheelchair bound. No physical therapy. Restorative therapy 3x/week until 2-3 weeks ago. Facility currently in lock down due to other residents with COVID19 infection. Still has suprapubic catheter and occasionally has UTIs. Flushing catheter 3x/day due to sediment. No symptoms, but states urine cultures are obtained based on urine color. BMs are unchanged from baseline, q2-4 days. Last office visit: 02/10/22 HISTORIES: PAST MEDICAL HISTORY Diagnosis Date - Anemia - Atrial fibrillation (HCC) - Functional quadriplegia (HCC) - Hyperlipidemia - Insomnia - Lack of coordination - Major depressive disorder - Multiple sclerosis (HCC) - Muscle weakness (generalized) - Neurogenic bladder - Pulmonary disease - Retention of urine, unspecified 03/04/2018 PAST SURGICAL HISTORY Procedure Laterality Date - REPAIR INCISIONAL HERNIA,REDUCIBLE 1991 per patient left groin area FAMILY HISTORY Problem Relation Age of Onset - Diabetes Mother - Heart disease Father - Stroke Father SOCIAL HISTORY: Social History Tobacco Use - Smoking status: Never Smoker - Smokeless tobacco: Never Used Substance Use Topics - Alcohol use: No - Drug use: No Marital Status: PAST GYNECOLOGIC HISTORY: OB History No obstetric history on file. LMP: No LMP recorded. Patient is postmenopausal. HEALTH MAINTENANCE: Last pap: Last mammogram: Last colonoscopy: ALLERGIES Allergen Reactions - All Cillins [Other] - Ciprofloxacin Mental Status Change - Nadolol Unknown - Penicillin V - Pregabalin Unknown carboxymethylcellulose sodium (REFRESH OPHTHALMIC) Use in eyes. milk thistle/NAC/dandel/turmer (LIVER COMPLEX ORAL) Take by mouth. tiZANidine (ZANAFLEX) 2 mg tablet Take 2 [...] NASAL) 0.65 % nasal spray Use 1 [place] in the nose every 2 hours as [...] 300 mg by mouth three times daily. INTERVAL HISTORY: See HPI. Her ECOG performance status is 3 (capable of only limited selfcare, confined to bed or chair more than 50% of waking hours). PHYSICAL EXAM: VITALS: BP 137/80 (BP Site: Right Arm, BP Position: Sitting, BP Cuff Size: Large Adult) Pulse 88 Temp 36.5 ?C (97.7 ?F) (Temporal) Ht 158.8 cm (5' 2.5 ) SpO2 96% BMI 30.60 kg/m? GENERAL: arrived in tiltable wheel chair. She is alert, cooperative and responds appropriately. no acute distress. She requires a brigitte when moved out from wheelchair. Accompanied by LATRELL DANIEL. HEENT: Normocephalic, atraumatic, mask on LUNGS: Respirations unlabored on RA. HEART: Regular rate. BREAST: def (more content not included)... [facility] 03-10-2022 History of Presen t illness Narrative Gynecologic Oncology [facility] Follow up visit Date of service: 03/10/2022 PROBLEM/CC: Shin Rojo presents for follow-up. HPI: Ms. 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 Concerned about abdominal girth growth and arms heavy. Denies CP, SOB, N/V, vaginal bleeding or rectal bleeding. States food is not that tasty so she is not sure why she would be gaining weight. Does endorse LLQ abdominal pain that is usually achy and sometimes sharp. Does take norco, tylenol, ibuprofen prn for hip pain - usually 1x/month. Diagnosis with MS at 56. Has significantly lost muscle strength. senior living insists she use a brigitte and wheelchair bound. No physical therapy. Restorative therapy 3x/week until 2-3 weeks ago. Facility currently in lock down due to other residents with COVID19 infection. Still has suprapubic catheter and occasionally has UTIs. Flushing catheter 3x/day due to sediment. No symptoms, but states urine cultures are obtained based on urine color. BMs are unchanged from baseline, q2-4 days. Last office visit: 02/10/22 HISTORIES: PAST MEDICAL HISTORY Diagnosis Date Anemia Atrial fibrillation (HCC) Functional quadriplegia (HCC) Hyperlipidemia Insomnia Lack of coordination Major depressive disorder Multiple sclerosis (HCC) Muscle weakness (generalized) Neurogenic bladder Pulmonary disease Retention of urine, unspecified 03/04/2018 PAST SURGICAL HISTORY Procedure Laterality Date REPAIR INCISIONAL HERNIA,REDUCIBLE 1991 per patient left groin area FAMILY HISTORY Problem Relation Age of Onset Diabetes Mother Heart disease Father Stroke Father SOCIAL HISTORY: Social History Tobacco Use Smoking status: Never Smoker Smokeless tobacco: Never Used Substance Use Topics Alcohol use: No Drug use: No Marital Status: PAST GYNECOLOGIC HISTORY: OB History No obstetric history on file. LMP: No LMP recorded. Patient is postmenopausal. HEALTH MAINTENANCE: Last pap: Last mammogram: Last colonoscopy: ALLERGIES Allergen Reactions All Cillins [Other] Ciprofloxacin Mental Status Change Nadolol Unknown Penicillin V Pregabalin Unknown carboxymethylcellulose sodium (REFRESH OPHTHALMIC) Use in eyes. milk thistle/NAC/dandel/turmer (LIVER COMPLEX ORAL) Take by mouth. tiZANidine (ZANAFLEX) 2 mg tablet Take 2 [...] NASAL) 0.65 % nasal spray Use 1 [place] in the nose every 2 hours as [...] 300 mg by mouth three times daily. INTERVAL HISTORY: See HPI. Her ECOG performance status is 3 (capable of only limited selfcare, confined to bed or chair more than 50% of waking hours). PHYSICAL EXAM: VITALS: BP 137/80 (BP Site: Right Arm, BP Position: Sitting, BP Cuff Size: Large Adult) Pulse 88 Temp 36.5 C (97.7 F) (Temporal) Ht 158.8 cm (5' 2.5 ) SpO2 96% BMI 30.60 kg/m GENERAL: arrived in tiltable wheel chair. She is alert, cooperative and responds appropriately. no acute distress. She requires a brigitte when moved out from wheelchair. Accompanied by LATRELL DANIEL. HEENT: Normocephalic, atraumatic, mask on LUNGS: Respirations unlabored on RA. HEART: Regular rate. BREAST: deferred. ABDOMEN: Nontender. Protuberant, soft. No TTP over the suprapubic area. Suprapubic catheter visualized, non erythematous no purulent drainage or odor noticed. Urometer draining clear yellow fluid. PELVIC: deferred PSYCHIATRIC: Alert, cooperative. Normal affect. Normal behavior. NEURO: Normal sensory. Motor intact and symmetric. Gait normal. EXTREMITIES: Able to move right arm slightly. No movement off left arm or lower extremities. Not tender. No ulcers or swelling. Dental Office Assistant for exam: Mansi Jolly RESULTS: CA 125: 19 (lab adult reference 0-38). RESULTS: 12/04/21: Transabdominal US Suprapubic catheter. The uterus and ovaries are not identified. The bladder is empty. Superior to the catheter there is a cystic mass containing septations, [id number] cm. Conclusion: hypoechoic pelvic mass, etiology undetermined. 12/25/2021 CT ABD/PEL IMPRESSION: 1. 14.8 x 9.8 x 9.8 cm complex septated cystic mass in the left adnexa. Adjacent to this lesion along the right side is a bilobed cystic mass measuring 3.9 x 6.1 x 3.9 cm. Ovarian neoplasm is a primary concern. WRAPPER CASHIER consultation is recommended. 2. No ascites or evidence of an omental mass. No lymphadenopathy. RESULT: Liver: A 0.9 cm hypodensity at the anterior segment right hepatic lobe is too small to characterize but likely a cyst. Biliary: No bile duct dilation. Gallbladder is unremarkable. Spleen: No mass. No splenomegaly. Pancreas: No mass or duct dilation. Adrenals: No mass. Kidneys: Renal cortical scarring at the upper portions of both kidneys. No renal mass. No hydronephrosis. GI tract: No dilation or wall thickening. Normal appendix. Lymph nodes: No abdominal or pelvic lymphadenopathy. Mesentery/Peritoneum: No ascites or mass. Retroperitoneum: No mass. Vasculature: - Abdominal aorta and iliac arteries: No aneurysm. - Celiac and SMA: Patent without stenosis. - Portal venous system (SMV, splenic vein, portal vein and branches): Patent. - Hepatic veins: Patent. Retroaortic left renal vein as a normal variant. Pelvis: Large multiloculated multiseptated cystic mass in the left adnexa measures 14.7 x 9.8 x 9.8 cm. Adjacent to this lesion on the right side is a bilobed cystic mass measuring 3.9 x 6.1 x 3.9 cm. No pelvic ascites. Uterus is present. Urinary bladder is decompressed with a Hopkins catheter. Bones/Soft Tissues: Thoracolumbar scoliosis convex to the left. Bones are of diffusely decreased density. No suspicious or destructive bone lesion. Lower thorax: Subsegmental atelectasis/scarring at the lung bases. Procurement Buyer (topogram) images: No additional findings ASSESSMENT & PLAN: 02/03/2022 Impression: Cystic adnexal mass(es) probably involving both adnexal. Left sided lesion is multi septated measuring approximately 16 x 10 cm. Right cystic lesion Measures approximately 5 cm. No ascites or adenopathy or carcinomatosis on CT scan in December. She gives a history of a pelvic mass going back several years. No source documents were available for my review today. She believes prior scans may have been done at [facility]. She had laboratory studies collected recently, the results are unavailable at today's visit, but she believe she was told her tumor markers were normal. Plan: I reviewed the natural history of pelvic cystic masses. The findings are not consistent with ovarian cancer but this has not been excluded. It is difficult to assess wether this mass is contributing to any abdominal discomfort which she says is intermittent. She has no sense any rapid increase in abdominal girth. No change in GI symptoms. No vaginal bleeding. She understands that she is at a higher then average risk of having a post operative complication given her functional status and MS if surgery is done to remove the lesions. At this point our shared decision is to allow me time to collect 1 or more documents regarding the mass that was assessed many years ago. Will also obtain results of recent blood test including CA 125 which was probably done. I will see her next month to review these findings. Consideration for surgery or re-assessment with US or CT Will be discussed at that time. Documentation from my notes of previous visit of Visit date not found was copied and pasted, documentation has been reviewed and edited as necessary and is current for today. ASSESSMENT & PLAN: 03/10/22 67 year old presenting with bilateral ovarian cysts (L>R) management. Reviewed normal CA-[address] images with patient today. Reviewed possibility of cyst drainage vs surgical removal. Reviewed high surgical risk given low performance status. Plan for transabdominal US to further characterize cyst progression and characteristics. Order placed for Green after 23 of March. Plan to return to office after US results - march. D/w Dr. Whitehead. Components of documentation from my notes was copied and pasted, documentation has been reviewed and edited as necessary and is current for today. SIGNATURE: Madeline Jolly DO PATIENT NAME: Shin Rojo DATE: 03/10/2022 TIME: 10:13 AM PAGER/CONTACT #: [id number] documented in this encounter [facility] 02-03-2022 Note HNO ID: [id number] Author: Mikel Whitehead MD Service: ? Author Type: Physician Type: Progress Notes Filed: 2022 9:32 AM Note Text: Gynecologic Oncology [facility] Date of service: 02/03/2022 PROBLEM/CC: Shin Rojo presents for evaluation of ovarian mass. She has been referred by Dr. Maxim Navarrete Jr. due to urinary retention. HPI: Shin Rojo is a 66 year old female who presents chronic SPT and UTIs. Patient has not been seen in years. ? The patient recently had a UTI at her facility, so she was treated augmentin. She has her SPT changed monthly. She reports sediment in her SPT. ? 01/22/22 - back with recent ct scan that shows large bilateral ovarian masses. Spt draining well. Would like changed q 20 days. Orders written. No utis ? HISTORIES: PAST MEDICAL HISTORY Diagnosis Date - Anemia - Atrial fibrillation (HCC) - Functional quadriplegia (HCC) - Hyperlipidemia - Insomnia - Lack of coordination - Major depressive disorder - Multiple sclerosis (HCC) - Muscle weakness (generalized) - Neurogenic bladder - Pulmonary disease - Retention of urine, unspecified 03/04/2018 PAST SURGICAL HISTORY Procedure Laterality Date - REPAIR INCISIONAL HERNIA,REDUCIBLE 1991 per patient left groin area FAMILY HISTORY Problem Relation Age of Onset - Diabetes Mother - Heart disease Father - Stroke Father SOCIAL HISTORY: Social History Tobacco Use - Smoking status: Never Smoker - Smokeless tobacco: Never Used Substance Use Topics - Alcohol use: No - Drug use: No Marital Status: PAST GYNECOLOGIC HISTORY: OB History No obstetric history on file. LMP: No LMP recorded. Patient is postmenopausal. HEALTH MAINTENANCE: Last pap: Last mammogram: Last colonoscopy: ALLERGIES Allergen Reactions - All Cillins [Other] - Ciprofloxacin Mental Status Change - Nadolol Unknown - Penicillin V - Pregabalin Unknown carboxymethylcellulose sodium (REFRESH OPHTHALMIC) Use in eyes. milk thistle/NAC/dandel/turmer (LIVER COMPLEX ORAL) Take by mouth. tiZANidine (ZANAFLEX) 2 mg tablet Take 2 [...] Take 1,000 mg by mouth twice daily. HYDROcodone-acetaminophen (NORCO) 5-325 mg per tablet Take 1 tablet by mouth every 6 hours as needed for Pain. melatonin 1 mg tab Take 1 mg by mouth at bedtime as needed. magnesium hydroxide (MOM) 400 mg/5 mL suspension Take 30 mL by mouth once daily as needed for Constipation. sodium chloride (OCEAN NASAL) 0.65 % nasal spray Use 1 [place] in the nose every 2 hours as needed. ibuprofen (MOTRIN) 200 mg tablet Take 200 mg by mouth every 8 hours as needed for Pain. senna (SENNA) 8.6 mg tab Take 8.6 mg by mouth once daily as needed (Constipation). ergocalciferol, vitamin D2, (VITAMIN D) 50,000 unit capsule Take 50,000 Units by mouth once each week. gabapentin (NEURONTIN) 300 mg capsule Take 300 mg by mouth three times daily. menthol (BIOFREEZE, MENTHOL,) 4 % gel Apply 4 % to affected area as needed. lidocaine (LIDODERM) 5 % Apply 1 Patch as directed as needed. INTERVAL HISTORY: She was diagnosed with MS approximately 10 years ago. She had a supraclavicular catheter placed approximately 8 years ago. She has been living in care facilities approximately 8-10 years with most recent being [facility] for about a year. She has been being followed with US for a cyst. She doesn't recall prior CT scans. Pelvic US at [facility] in November 2021 report isn't available at this time. This apparently led to her having CT on 12/25/2021 results are available for review. She states her bowels are moving every 3-4 days. She states her weight is increasing. PHYSICAL EXAM: 02/03/2022 VITALS: BP 150/98 (BP Site: Left Arm, BP Position: Sitting, BP Cuff Size: Regular Adult) Pulse 70 Temp 36 ?C (96.8 ?F) (Temporal) Ht 5' 3 (1.6 m) Wt 170 lb (77.1 kg) SpO2 96% BMI 30.11 kg/m? GENERAL: Arrived in a tiltable wheel chair. She is alert and cooperative. She is unable to get out of the wheelchair onto an exam table. She requires a brigitte lift to transfer from bed to the wheel chair. NECK: Non-tender without masses. LUNGS: Clear and unlabored. HEART: Sinus rhythm without murmur. (more content not included)... [facility] 02-03-2022 History of Presen t illness Narrative Gynecologic Oncology [facility] Date of service: 02/03/2022 PROBLEM/CC: Shin Rojo presents for evaluation of ovarian mass. She has been referred by Dr. Maxim Navarrete Jr. due to urinary retention. HPI: Shin Rojo is a 66 year old female who presents chronic SPT and UTIs. Patient has not been seen in years. The patient recently had a UTI at her facility, so she was treated augmentin. She has her SPT changed monthly. She reports sediment in her SPT. 01/22/22 - back with recent ct scan that shows large bilateral ovarian masses. Spt draining well. Would like changed q 20 days. Orders written. No utis HISTORIES: PAST MEDICAL HISTORY Diagnosis Date Anemia Atrial fibrillation (HCC) Functional quadriplegia (HCC) Hyperlipidemia Insomnia Lack of coordination Major depressive disorder Multiple sclerosis (HCC) Muscle weakness (generalized) Neurogenic bladder Pulmonary disease Retention of urine, unspecified 03/04/2018 PAST SURGICAL HISTORY Procedure Laterality Date REPAIR INCISIONAL HERNIA,REDUCIBLE 1991 per patient left groin area FAMILY HISTORY Problem Relation Age of Onset Diabetes Mother Heart disease Father Stroke Father SOCIAL HISTORY: Social History Tobacco Use Smoking status: Never Smoker Smokeless tobacco: Never Used Substance Use Topics Alcohol use: No Drug use: No Marital Status: PAST GYNECOLOGIC HISTORY: OB History No obstetric history on file. LMP: No LMP recorded. Patient is postmenopausal. HEALTH MAINTENANCE: Last pap: Last mammogram: Last colonoscopy: ALLERGIES Allergen Reactions All Cillins [Other] Ciprofloxacin Mental Status Change Nadolol Unknown Penicillin V Pregabalin Unknown carboxymethylcellulose sodium (REFRESH OPHTHALMIC) Use in eyes. milk thistle/NAC/dandel/turmer (LIVER COMPLEX ORAL) Take by mouth. tiZANidine (ZANAFLEX) 2 mg tablet Take 2 [...] Take 1,000 mg by mouth twice daily. HYDROcodone-acetaminophen (NORCO) 5-325 mg per tablet Take 1 tablet by mouth every 6 hours as needed for Pain. melatonin 1 mg tab Take 1 mg by mouth at bedtime as needed. magnesium hydroxide (MOM) 400 mg/5 mL suspension Take 30 mL by mouth once daily as needed for Constipation. sodium chloride (OCEAN NASAL) 0.65 % nasal spray Use 1 [place] in the nose every 2 hours as needed. ibuprofen (MOTRIN) 200 mg tablet Take 200 mg by mouth every 8 hours as needed for Pain. senna (SENNA) 8.6 mg tab Take 8.6 mg by mouth once daily as needed (Constipation). ergocalciferol, vitamin D2, (VITAMIN D) 50,000 unit capsule Take 50,000 Units by mouth once each week. gabapentin (NEURONTIN) 300 mg capsule Take 300 mg by mouth three times daily. menthol (BIOFREEZE, MENTHOL,) 4 % gel Apply 4 % to affected area as needed. lidocaine (LIDODERM) 5 % Apply 1 Patch as directed as needed. INTERVAL HISTORY: She was diagnosed with MS approximately 10 years ago. She had a supraclavicular catheter placed approximately 8 years ago. She has been living in care facilities approximately 8-10 years with most recent being [facility] for about a year. She has been being followed with US for a cyst. She doesn't recall prior CT scans. Pelvic US at [facility] in November 2021 report isn't available at this time. This apparently led to her having CT on 12/25/2021 results are available for review. She states her bowels are moving every 3-4 days. She states her weight is increasing. PHYSICAL EXAM: 02/03/2022 VITALS: BP 150/98 (BP Site: Left Arm, BP Position: Sitting, BP Cuff Size: Regular Adult) Pulse 70 Temp 36 C (96.8 F) (Temporal) Ht 5' 3 (1.6 m) Wt 170 lb (77.1 kg) SpO2 96% BMI 30.11 kg/m GENERAL: Arrived in a tiltable wheel chair. She is alert and cooperative. She is unable to get out of the wheelchair onto an exam table. She requires a brigitte lift to transfer from bed to the wheel chair. NECK: Non-tender without masses. LUNGS: Clear and unlabored. HEART: Sinus rhythm without murmur. ABDOMEN: Protuberant, non-tender, soft. No tenderness over the supra pubic area. Supra pubic cathter site shows no signs of infection. LOWER EXTREMITIES: Trace edema. She can wiggle the toes of her right foot and move her arm from below the elbow slightly. Was unable to move her left upper and lower extremity today. Dental Office Assistant for exam: Viky RESULTS: 12/25/2021 CT ABD/PEL IMPRESSION: 1. 14.8 x 9.8 x 9.8 cm complex septated cystic mass in the left adnexa. Adjacent to this lesion along the right side is a bilobed cystic mass measuring 3.9 x 6.1 x 3.9 cm. Ovarian neoplasm is a primary concern. WRAPPER CASHIER consultation is recommended. 2. No ascites or evidence of an omental mass. No lymphadenopathy. RESULT: Liver: A 0.9 cm hypodensity at the anterior segment right hepatic lobe is too small to characterize but likely a cyst. Biliary: No bile duct dilation. Gallbladder is unremarkable. Spleen: No mass. No splenomegaly. Pancreas: No mass or duct dilation. Adrenals: No mass. Kidneys: Renal cortical scarring at the upper portions of both kidneys. No renal mass. No hydronephrosis. GI tract: No dilation or wall thickening. Normal appendix. Lymph nodes: No abdominal or pelvic lymphadenopathy. Mesentery/Peritoneum: No ascites or mass. Retroperitoneum: No mass. Vasculature: - Abdominal aorta and iliac arteries: No aneurysm. - Celiac and SMA: Patent without stenosis. - Portal venous system (SMV, splenic vein, portal vein and branches): Patent. - Hepatic veins: Patent. Retroaortic left renal vein as a normal variant. Pelvis: Large multiloculated multiseptated cystic mass in the left adnexa measures 14.7 x 9.8 x 9.8 cm. Adjacent to this lesion on the right side is a bilobed cystic mass measuring 3.9 x 6.1 x 3.9 cm. No pelvic ascites. Uterus is present. Urinary bladder is decompressed with a Hopkins catheter. Bones/Soft Tissues: Thoracolumbar scoliosis convex to the left. Bones are of diffusely decreased density. No suspicious or destructive bone lesion. Lower thorax: Subsegmental atelectasis/scarring at the lung bases. Procurement Buyer (topogram) images: No additional findings No results found for: CA125 ASSESSMENT & PLAN: 02/03/2022 Impression: Cystic adnexal mass(es) probably involving both adnexal. Left sided lesion is multi septated measuring approximately 16 x 10 cm. Right cystic lesion Measures approximately 5 cm. No ascites or adenopathy or carcinomatosis on CT scan in December. She gives a history of a pelvic mass going back several years. No source documents were available for my review today. She believes prior scans may have been done at [facility]. She had laboratory studies collected recently, the results are unavailable at today's visit, but she believe she was told her tumor markers were normal. Plan: I reviewed the natural history of pelvic cystic masses. The findings are not consistent with ovarian cancer but this has not been excluded. It is difficult to assess wether this mass is contributing to any abdominal discomfort which she says is intermittent. She has no sense any rapid increase in abdominal girth. No change in GI symptoms. No vaginal bleeding. She understands that she is at a higher then average risk of having a post operative complication given her functional status and MS if surgery is done to remove the lesions. At this point our shared decision is to allow me time to collect 1 or more documents regarding the mass that was assessed many years ago. Will also obtain results of recent blood test including CA 125 which was probably done. I will see her next month to review these findings. Consideration for surgery or re-assessment with US or CT Will be discussed at that time. Documentation from my notes of previous visit of Visit date not found was copied and pasted, documentation has been reviewed and edited as necessary and is current for today. ATTESTATION: By signing my name below, I, Bina Gallagher, attest that this documentation has been prepared under the direction and in the presence of Mikel Whitehead MD. Electronically signed:Alex Colin, February 03, 2022 2:56 PM I agree with the Chief Complaint, ROS, and Past Histories independently gathered by the clinical emotional support teacher and the remaining scribed note accurately describes my personal service to the patient. documented in this encounter [facility] 01-22-2022 Note HNO ID: [id number] Author: Maxim Navarrete Jr., MD Service: ? Author Type: Physician Type: Progress Notes Filed: 01/22/2022 12:33 PM Note Text: ESTABLISHED PATIENT OFFICE VISIT HPI Shin Rojo is a 66 year old female who presents chronic SPT and UTIs. Patient has not been seen in years. ? The patient recently had a UTI at her facility, so she was treated augmentin. She has her SPT changed monthly. She reports sediment in her SPT. 01/22/22 - back with recent ct scan that shows large bilateral ovarian masses. Spt draining well. Would like changed q 20 days. Orders written. No utis LAB: Creatinine (POCT) Date Value Ref Range Status 12/25/2021 0.60 0.60 - 1.30 mg/dL Final No results found for: PSA No results [...] NASAL) 0.65 % nasal spray Use 1 [place] in the nose every 2 hours as [...] 300 mg by mouth three times daily. REVIEW OF SYSTEMS Review of Systems Constitutional: Negative. Respiratory: Negative. Cardiovascular: Negative. Gastrointestinal: Negative. Genitourinary: Negative. Skin: Negative. Neurological: Negative. Psychiatric/Behavioral: Negative. HISTORIES PAST MEDICAL HISTORY Diagnosis Date - Anemia - Asthma - Atrial fibrillation (HCC) - Constipation - Functional quadriplegia (HCC) - Hyperlipidemia - Insomnia - Lack of coordination - Major depressive disorder - Multiple sclerosis (HCC) - Muscle weakness (generalized) - Neurogenic bladder - Pulmonary disease - Retention of urine, unspecified 03/04/2018 - Retention, urine History reviewed. No pertinent family history. SOCIAL HISTORY Social History Tobacco Use - Smoking status: Never Smoker - Smokeless tobacco: Never Used Substance Use Topics - Alcohol use: No - Drug use: No PHYSICAL EXAMINATION General appearance: Well appearing, alert, in no acute distress and well-hydrated, well nourished Skin: Skin color, texture, turgor normal, no suspicious rashes or lesions Respiratory:+ effort Cardiovascular: Not examined GI: Normal abdominal exam, Abdomen soft, non-tender. No masses, organomegaly Musculoskeletal: Negative Neuro: Negative Genitourinary: not examined Impression: (R33.9) Urinary retention (primary encounter diagnosis) Plan: Refer to lockstitch collar setter/onc Prn with me Maxim Navarrete Jr, MD 01/22/2022 [facility] 01-22-2022 History of Presen t illness Narrative ESTABLISHED PATIENT OFFICE VISIT HPI Shin Rojo is a 66 year old female who presents chronic SPT and UTIs. Patient has not been seen in years. The patient recently had a UTI at her facility, so she was treated augmentin. She has her SPT changed monthly. She reports sediment in her SPT. 01/22/22 - back with recent ct scan that shows large bilateral ovarian masses. Spt draining well. Would like changed q 20 days. Orders written. No utis LAB: Creatinine (POCT) Date Value Ref Range Status 12/25/2021 0.60 0.60 - 1.30 mg/dL Final No results found for: PSA No results [...] NASAL) 0.65 % nasal spray Use 1 [place] in the nose every 2 hours as [...] 300 mg by mouth three times daily. REVIEW OF SYSTEMS Review of Systems Constitutional: Negative. Respiratory: Negative. Cardiovascular: Negative. Gastrointestinal: Negative. Genitourinary: Negative. Skin: Negative. Neurological: Negative. Psychiatric/Behavioral: Negative. HISTORIES PAST MEDICAL HISTORY Diagnosis Date Anemia Asthma Atrial fibrillation (HCC) Constipation Functional quadriplegia (HCC) Hyperlipidemia Insomnia Lack of coordination Major depressive disorder Multiple sclerosis (HCC) Muscle weakness (generalized) Neurogenic bladder Pulmonary disease Retention of urine, unspecified 03/04/2018 Retention, urine History reviewed. No pertinent family history. SOCIAL HISTORY Social History Tobacco Use Smoking status: Never Smoker Smokeless tobacco: Never Used Substance Use Topics Alcohol use: No Drug use: No PHYSICAL EXAMINATION General appearance: Well appearing, alert, in no acute distress and well-hydrated, well nourished Skin: Skin color, texture, turgor normal, no suspicious rashes or lesions Respiratory:+ effort Cardiovascular: Not examined GI: Normal abdominal exam, Abdomen soft, non-tender. No masses, organomegaly Musculoskeletal: Negative Neuro: Negative Genitourinary: not examined Impression: (R33.9) Urinary retention (primary encounter diagnosis) Plan: Refer to lockstitch collar setter/onc Prn with me Maxim Navarrete Jr, MD 01/22/[address]22 [address] encounter [facility] 12-25-2021 History of Presen t illness Narrative Radiology Service Progress Note DATE OF SERVICE: December 25, 2021 TIME: 12:32 PM PATIENT IDENTITY VERIFICATION COMPLETED USING TWO (2) STANDARD IDENTIFIERS: Name and Date of confirmed by patient verbally and Name and Date of confirmed by identification band. FALL SCREENING: Has the patient had 2 falls in the last year or 1 fall with injury or currently using an Ambulatory Assistive Device (Walker, Cane, Wheelchair, Crutches, etc.)? No PATIENT GENDER DATA: Female. status: : No status: NO. PATIENT RELEVANT IMPLANT DATA REVIEWED: Not Applicable ALLERGIES: Reviewed and unchanged CONTRAST ALLERGY: NO. EXAM: CT -CONTRAST INDUCED NEPHROPATHY RISK FACTORS: Patient age > 60 years CREATININE: Creatinine (POCT) Date Value Ref Range Status 12/25/2021 0.60 0.60 - 1.30 mg/dL Final eGFR (POCT) Date Value Ref Range Status 12/25/2021 >60 mL/min/1.73 m2 Final P.O.C.T. RESULTS: POC done: Yes, See Lab Tab December 25, 2021 TREATMENT: N/A PERIPHERAL IV DATA: Ambulatory: A peripheral IV was started in the Left forearm with a Angio cath: 22 gauge. RADIOLOGY DEPARTMENT: CT; Exam(s) Completed: Abdomen/Pelvis SIGNATURE: RT Jennifer(Lupe) PATIENT NAME: Shin Rojo DATE: December 25, 2021 TIME: 12:32 PM documented in this encounter [facility] Diagnosis MS (multiple sclerosis) (HCC)- Primary Multiple sclerosis Bilateral tubo-ovarian mass Retention of urine, unspecified [facility] Diagnosis Bilateral tubo-ovarian mass- Primary MS (multiple sclerosis) (HCC) Multiple sclerosis Retention of urine, unspecified [facility] Diagnosis Pelvic mass in female- Primary Abdominal or pelvic swelling, mass or lump, unspecified site Multiple sclerosis (HCC) Multiple sclerosis Complete immobility due to severe physical disability or frailty (HCC) Functional quadriplegia Bilateral tubo-ovarian mass [facility] Diagnosis Bilateral tubo-ovarian mass- Primary Bilateral tubo-ovarian mass [facility] Diagnosis Pre-op testing- Primary Preoperative examination, unspecified Iron deficiency anemia, unspecified iron deficiency anemia type [D50.9 (ICD-10-CM)] Mixed hyperlipidemia [E78.2 (ICD-10-CM)] Mixed hyperlipidemia Multiple sclerosis (HCC) [G35 (ICD-10-CM)] Multiple sclerosis 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)] Bilateral tubo-ovarian mass 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)- Primary Complete immobility due to severe physical disability or frailty (HCC) Functional quadriplegia Multiple sclerosis (HCC) Multiple sclerosis documented in this encounter [facility] for referral (narrative)* Diagnostic Procedure Only (Routine) - Authorized Specialty Diagnoses / Procedures Referred By Ludy gant Referred To Contact US IMAGING Diagnoses Bilateral tubo-ovarian mass Procedures US FEMALE PELVIS TRANSABD COMPLETE US PELVIC NONOBSTETRIC REAL-TIME IMAGE COMPLETE Yue Rios, CAN INTAKE WORKER [address] [place] [address] Us Imaging Referral ID Status Reason Start Date Expiration Date Visits Requested Visits Authorized [id number] Authorized Auto-Generat ed Referral 03/24/2022 04/09/2023 1 1 [facility] for visit Narrative* Diagnostic Procedure Only (Routine) - Closed Specialty Diagnoses / Procedures Referred By Contac t Referred To Contact RADIO CT SCAN [facility] Diagnoses Bladder Mass pt will have order Procedures CT ABDOMEN W & W/O CONTRAST CT WWO ABD1 [address] [place] [address] Scan [facility] [address] [place] [address] Referral ID Status Reason Start Date Expiration Date Visits Re quested Visits Authorized [id number] Closed 12/25/2021 03/19/[address] [facility] Summary Purpose Family History No Family History Records FoundNo Family History Records FoundNo Family History Records FoundNo Family History Records FoundNo Family History Records FoundNo Family History Records Found Advance Directives No Advanced Directives Records FoundNo Advanced Directives Records FoundNo Advanced Directives Records FoundNo Advanced Directives Records FoundNo Advanced Directives Records FoundNo Advanced Directives Records Found Additional Source Comments INFORMATION SOURCE (unrecogn ized section and content) DATE CREATED AUTHOR AUTHOR'S ORGANIZ ATION 11/19/2018 [facility] DATE CREATED AUTHOR AUTHOR'S ORGANIZ ATION 01/09/2019 [facility] ([place] DATE CREATED AUTHOR AUTHOR'S ORGANIZ ATION 04/08/2020 [facility] DATE CREATED AUTHOR AUTHOR'S ORGANIZ ATION 09/02/2022 [facility] DATE CREATED AUTHOR AUTHOR'S ORGANIZ ATION 01/17/2023 [facility] Source Comments (unrecognize d section and content) In the event this informatio n is protected by the Federal Confidentiality of Alcohol and Drug Abuse Patient Records regulations: The Federal rules restrict any use of the information to criminally investigate or prosecute any alcohol or drug abuse patient.[facility] the event this information is protected by the Federal Confidentiality of Alcohol and Drug Abuse Patient Records regulations: The Federal rules restrict any use of the information to criminally investigate or prosecute any alcohol or drug abuse patient.[facility] the event this information is protected by the Federal Confidentiality of Alcohol and Drug Abuse Patient Records regulations: The Federal rules restrict any use of the information to criminally investigate or prosecute any alcohol or drug abuse patient.[facility] the event this information is protected by the Federal Confidentiality of Alcohol and Drug Abuse Patient Records regulations: The Federal rules restrict any use of the information to criminally investigate or prosecute any alcohol or drug abuse patient.[facility] HospitalIn the event this information is protected by the Federal Confidentiality of Alcohol and Drug Abuse Patient Records regulations: The Federal rules restrict any use of the information to criminally investigate or prosecute any alcohol or drug abuse patient.[facility]In the event this information is protected by the Federal Confidentiality of Alcohol and Drug Abuse Patient Records regulations: The Federal rules restrict any use of the information to criminally investigate or prosecute any alcohol or drug abuse patient.[facility] HospitalIn the event this information is protected by the Federal Confidentiality of Alcohol and Drug Abuse Patient Records regulations: The Federal rules restrict any use of the information to criminally investigate or prosecute any alcohol or drug abuse patient.[facility] HospitalIn the event this information is protected by the Federal Confidentiality of Alcohol and Drug Abuse Patient Records regulations: The Federal rules restrict any use of the information to criminally investigate or prosecute any alcohol or drug abuse patient.[facility]In the event this information is protected by the Federal Confidentiality of Alcohol and Drug Abuse Patient Records regulations: The Federal rules restrict any use of the information to criminally investigate or prosecute any alcohol or drug abuse patient.[facility] HospitalIn the event this information is protected by the Federal Confidentiality of Alcohol and Drug Abuse Patient Records regulations: The Federal rules restrict any use of the information to criminally investigate or prosecute any alcohol or drug abuse patient.[facility]In the event this information is protected by the Federal Confidentiality of Alcohol and Drug Abuse Patient Records regulations: The Federal rules restrict any use of the information to criminally investigate or prosecute any alcohol or drug abuse patient.[facility] HospitalIn the event this information is protected by the Federal Confidentiality of Alcohol and Drug Abuse Patient Records regulations: The Federal rules restrict any use of the information to criminally investigate or prosecute any alcohol or drug abuse patient.[facility] HospitalIn the event this information is protected by the Federal Confidentiality of Alcohol and Drug Abuse Patient Records regulations: The Federal rules restrict any use of the information to criminally investigate or prosecute any alcohol or drug abuse patient.[facility]In the event this information is protected by the Federal Confidentiality of Alcohol and Drug Abuse Patient Records regulations: The Federal rules restrict any use of the information to criminally investigate or prosecute any alcohol or drug abuse patient.[facility] HospitalIn the event this information is protected by the Federal Confidentiality of Alcohol and Drug Abuse Patient Records regulations: The Federal rules restrict any use of the information to criminally investigate or prosecute any alcohol or drug abuse patient.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 Relationship Specialty Start Date End Date Portillo Trujillo [address] [address] PCP - General Family Practice 07/15/21 Warehouse Insulation Worker Relationship Specialty Start Date End Date Portillo Trujillo [address] [address] PCP - General Family Practice 07/15/21 Warehouse Insulation Worker Relationship Specialty Start Date End Date Portillo Trujillo [address] [address] PCP - General Family Practice 07/15/21 Warehouse Insulation Worker Relationship Specialty Start Date End Date Lucycarlin [address] [address] PCP - General Family Practice 07/15/21 Warehouse Insulation Worker Relationship Specialty Start Date End Date Ronnie [address] [address] PCP - General Family Practice 07/15/21 Warehouse Insulation Worker Relationship Specialty Start Date [facility] [address] [place] [address] PCP - General Family Practice 07/15/21 Warehouse Insulation Worker Relationship Specialty Start Date End Date Portillo Tru[place] [address] PCP - General Family Practice 07/15/21 Warehouse Insulation Worker Relationship Specialty Start Date End Date Portillo Tru[place] [address] PCP - General Family Practice 07/15/21 Warehouse Insulation Worker Relationship Specialty Start Date End Date Portillo Truj[place] [address] PCP - General Family Medicine 07/15/21 Warehouse Insulation Worker Relationship Specialty Start Date [place] [address] PCP - General Family Medicine 07/15/21 Warehouse Insulation Worker Relationship Specialty Start [place] [address] PCP - General Family Medicine 07/15/21 Warehouse Insulation Worker Relationship Specialty Start Date End [place] [address] PCP - General Family Medicine 07/15/21 Reason for Visit (unrecogniz ed section and content) Reason Comments New Patient Reason Comments Established Patient Reason Comments Established Patient Reason Comments Preparations For Surgery Returning Patient's Call Reason Comments Post Op Reason Comments Patient Update Reason Comments Results Reason Comments retention of urine Reason Comments Orders Reason Comments Follow Up FOR RECORDS PERTAINING TO PATIENTS WHO ARE OR HAVE BEEN ENROLLED IN A CHEMICAL DEPENDENCY/SUBSTANCEABUSE PROGRAM, SOME INFORMATION MAY BE OMITTED. This clinical summary was aggregated from multiple sources. Caution should be exercised in using it in the provision of clinical care. This summary normalizes information from multiple sources, and as a consequence, information in this document may materially change the coding, format and clinical context of patient data. In addition, data may be omitted in some cases. CLINICAL DECISIONS SHOULD BE BASED ON THE PRIMARY CLINICAL RECORDS. [facility]. provides no warranty or guarantee of the accuracy or completeness of information in this document.
[2023-11-22 08:32] LABS: Absolute Lymphocyte Count 2.37 X10^3/uL (0.83-4.51); Absolute Neutrophil Count 3.8 X10^3/uL (2.0-7.7); Basophil# 0.04 X10^3/uL; Basophil% 0.6 % (0-1); Eosinophil# 0.19 X10^3/uL; Eosinophils% 2.7 % (0-5); Hematocrit 35.9 % (37-47); Hemoglobin 11.4 g/dL (12.0-15.0); Lymphocyte # 2.37 X10^3/ul (0.83-4.51); Lymphocyte % 33.3 % (19-41); Mean Corp Hgb Conc 31.8 g/dL (32-36); Mean Corpuscular Hgb 29.4 pg (27.0-32.0); Mean Corpuscular Volume 92.5 fL (81-99); Mean Platelet Vol. 10.6 fl (6.2-12.0); Monocyte# 0.65 X10^3/uL; Monocyte% 9.1 % (0-10); NRBC Flagged by Analyzer 0 % (0-5); Neutrophil # 3.82 X10^3/uL (2.7-7.7); Neutrophil % 53.7 % (47-70); Platelet Count 229 K/mm3 (150-450); RBC Distribution Width CV 14.7 % (11.6-14.6); RBC Distribution Width SD 49.8 fl (35.1-43.9); Red Blood Count 3.88 M/mm3 (4.2-5.4); White Blood Count 7.1 K/mm3 (4.4-11.0)
[2023-11-22 08:47] LABS: Cholesterol 125 mg/dL (200); High Density Lipoprotein 33 mg/dL; Triglycerides 201 mg/dL; Very Low Density Lipoprotein 40 mg/dL (5-40)
== END ==
LOC: OLS.ACH 04:00
PROVIDERS: PCP Internal Medicine; Referring Provider Internal Medicine; Visit Provider Internal Medicine
DX: G35 Multiple sclerosis (principal); E78.49 Other hyperlipidemia
CPT/HCPCS: 36415; 80061; 85025

== ENCOUNTER → 2023-12-21 | Outpatient (REF) | payer MEDICARE, MEDICAID, SELFPAY ==
[2023-12-21 09:55] LABS: Hematocrit 36.6 % (37-47); Hemoglobin 11.5 g/dL (12.0-15.0); Mean Corp Hgb Conc 31.4 g/dL (32-36); Mean Corpuscular Hgb 28.9 pg (27.0-32.0); Mean Platelet Vol. 10.9 fl (6.2-12.0); Platelet Count 250 K/mm3 (150-450); RBC Distribution Width CV 14.5 % (11.6-14.6); RBC Distribution Width SD 48.9 fl (35.1-43.9); Red Blood Count 3.98 M/mm3 (4.2-5.4); White Blood Count 7.9 K/mm3 (4.4-11.0)
[2023-12-21 10:13] LABS: ALB/GLOB Ratio 1.1 RATIO (0.9-2.4); AST(SGOT) 23 U/L (15-37); Alanine Aminotransfer ALT/SGPT 37 U/L (13-56); Albumin, Serum 3.3 g/dL (3.2-5.0); Alkaline Phosphatase 87 U/L (45-117); Anion Gap 3 (5-15); BUN 12 mg/dL (7-18); BUN/Creat Ratio 19.2 RATIO (10-20); Calcium,Total 9.1 mg/dL (8.5-10.1); Chloride 110 mmol/L (98-107); Creatinine, Serum 0.63 mg/dL (0.55-1.02); EST Glomerular Filtration Rate 100 mL/min (>60); Est Glom Filt Rate - Afr Amer 121 mL/min (>60); Globulin 3.1 g/dL (2.2-4.2); Glucose 115 mg/dL (74-106); Potassium 3.8 mmol/L (3.5-5.1); Protein, Total 6.4 g/dL (6.4-8.2); Sodium Level 143 mmol/L (136-145)
== END ==
LOC: OLS.ACH 05:00
PROVIDERS: Visit Provider Internal Medicine
DX: R53.2 Functional quadriplegia (principal); G35 Multiple sclerosis; N31.9 Neuromuscular dysfunction of bladder, unspecified
CPT/HCPCS: 36415; 80053; 85027

== ENCOUNTER → 2023-12-21 | Outpatient (CLI) | payer MEDICARE, MEDICAID, SELFPAY ==
--- NOTE | 2023-12-21 11:16 | SP.MBSS_ITS ---
Modified Barium Swallow Patient Information Study Date: 12/21/23 Study Time: 13:00 Direct Billable Minutes: 104 Total Minutes procedure & reportin Diagnosis: Dysphagia R13.10, MS G35 Referring Physician: Rashard Higgins NP Reason for Referral: Objectively assess swallow function, assess risk for aspiration, and determine recommendations for least restrictive diet textures and compensatory strategies to improve safety of swallow. Medical History: PMH: Bladder disease, COPD, Depression, Former smoker, GERD, Hx of Afib, Hx of deviated nasal septum, HTN, Multiple Sclerosis, UTI, Surgical hx: s/p PEG tube placement. See EMR for full PMH. Patient presents from [facility]. Patient recently developed a clicking sound when she swallows, which she feels on the L side of her throat. 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 Current Diet Ordered: Regular Textures / Thin Liquids Dentition: WNL Mental Status: WNL Respiratory Status: Oxygenating on Room Air Penetration-Aspiration Scale Penetration-Aspiration Scale: OBJECTIVE ASSESSMENT OF SWALLOW FUNCTION (QUANTITATIVE ? PER TRIAL): PENETRATION / ASPIRATION SCALE (BUCKLEY): 1 = does not enter airway 2 = enters airway/above vocal folds/ejected 3 = enters airway/above vocal folds/not ejected 4 = enters airway/contacts vocal folds/ejected 5 = enters airway/contacts vocal folds/not ejected 6 = enters airway/below vocal folds/ejected 7 = enters airway/below vocal folds/not ejected despite effort 8 = enters airway/below vocal folds/no effort VIDEOFLOROSCOPIC SCALE SCORE (BUCKLEY): Grade I = aspiration of material that has penetrated into the laryngeal vestibule, intact cough reflex Grade II = aspiration < 10 % of the bolus, intact cough reflex Grade III = aspiration of < 10 % of the bolus, reduced cough reflex or aspiration of > 10 % of the bolus, intact cough reflex Grade IV = aspiration of > 10 % of the bolus, reduced cough reflex Penetration-Aspiration Scale Score Thin Liquid via teaspoon: Result: 1= does not enter airway Thin Liquid via teaspoon Trial 2: Result: 1= does not enter airway Thin Liquid via small single sip: cup: Result: 1= does not enter airway [place] Thick Liquid via small single sip: cup: Result: 1= does not enter airway Pudding via teaspoon: Result: 1= does not enter airway Comment: Esophageal screen 09/21 Cookie: Result: 1= does not enter airway Thin Liquid via sequential sips:straw: Result: 2= enter airway/above vocal folds/ejected (trace) Oral Phase Labial Seal: No Labial Escape Tongue Control During Bolus Hold: Posterior escape of less than half of bolus Bolus Preparation/Mastication: Slow prolonged chewing/mashing with complete recollection Bolus Transport/Lingual Motion: Brisk tongue motion Oral Residue: Trace residue lining oral structures Pharyngeal Phase Initiation of Pharyngeal Swallow: Bolus head at posterior laryngeal surgace of epiglottis Soft Palate Elevation: Trace column of contrast/air between soft palate and pharyngeal wall Laryngeal Elevation: Comp. Superior move thyroid cart w/comp. apprx arytenoid cart-epig pet Anterior Hyoid Excursion: Partial anterior movement Epiglottic Movement: Complete inversion Laryngeal Vestibule Closure at Height of Swallow: Incomplete; narrow column of air/contrast in laryngeal vestibule (trace laryngeal penetration with full ejection) Pharyngeal Stripping Wave: Present - complete Pharyngoesophageal Segment Opening: Complete distension and complete duration; no obstruction of flow Tongue Base Retraction: Narrow column of contrast between tongue base & post. pharyngeal wall Pharyngeal Residue: Collection of residue within or on pharyngeal structures Esophageal Phase Esophageal Clearance: Esophageal retention (Trace esophageal retention) Diagnosis/Impression Diagnosis: Mild pharyngeal dysphagia R13.13 Impression: The pharyngeal phase is primarily marked by... -Mildly decreased anterior hyoid excursion; however, complete laryngeal elevation. Trace laryngeal penetration with full ejection during the swallow. -Mildly decreased tongue base retraction with small collection of pharyngeal residues of thin liquids after the swallow. -No aspiration was observed during the study. Small CP bar at the level of C5 that did not appear to obstruct bolus flow. Recommendations Diet: Regular Textures and Thin Liquids Compensatory Strategies: Small Bites, Small Sips, Slow Rate and Sitting upright Recommend Repeat Modified Barium Swallow: No Need for Skilled Speech Therapy Services: Yes Comment: Will recommend FEES to further assess swallow function, as well as the anatomy of the patient's pharyngeal phase. Education Completed: 1. Described result of evaluation. Status Active ST Patient: Active Contact Information [facility] Speech Therapy:: Ronel Gutierrez M.A. CCC-AIRPORT REPRESENTATIVE? Speech-Language Pathologist?? [facility] [address]?? [place] [address]?? [email or web address]?? [phone]
== END | disposition home or self-care (01) ==
DX: R13.13 Dysphagia, pharyngeal phase (principal)
CPT/HCPCS: 74230; 92611

== ENCOUNTER → 2024-02-15 | Outpatient (REF) | payer MEDICARE, MEDICAID, SELFPAY ==
[2024-02-15 09:34] LABS: Absolute Lymphocyte Count 2.34 X10^3/uL (0.83-4.51); Absolute Neutrophil Count 3.1 X10^3/uL (2.0-7.7); Basophil# 0.04 X10^3/uL; Basophil% 0.6 % (0-1); Eosinophil# 0.13 X10^3/uL; Eosinophils% 2.1 % (0-5); Hematocrit 37.5 % (37-47); Hemoglobin 11.6 g/dL (12.0-15.0); Lymphocyte # 2.34 X10^3/ul (0.83-4.51); Lymphocyte % 37.7 % (19-41); Mean Corp Hgb Conc 30.9 g/dL (32-36); Mean Corpuscular Hgb 29.1 pg (27.0-32.0); Mean Platelet Vol. 10.5 fl (6.2-12.0); Monocyte# 0.62 X10^3/uL; NRBC Flagged by Analyzer 0 % (0-5); Neutrophil # 3.05 X10^3/uL (2.7-7.7); Neutrophil % 49.1 % (47-70); Platelet Count 218 K/mm3 (150-450); RBC Distribution Width CV 14.5 % (11.6-14.6); RBC Distribution Width SD 50.2 fl (35.1-43.9); Red Blood Count 3.99 M/mm3 (4.2-5.4); White Blood Count 6.2 K/mm3 (4.4-11.0)
[2024-02-15 09:49] LABS: Cholesterol 124 mg/dL (200); High Density Lipoprotein 35 mg/dL; Triglycerides 222 mg/dL; Very Low Density Lipoprotein 44 mg/dL (5-40)
== END ==
LOC: OLS.ACH 05:00
PROVIDERS: Visit Provider Internal Medicine
DX: G35 Multiple sclerosis (principal); I10 Essential (primary) hypertension; E78.00 Pure hypercholesterolemia, unspecified
CPT/HCPCS: 36415; 80061; 85025

== ENCOUNTER → 2024-05-09 05:00 | Outpatient (REF) | payer MEDICARE, MEDICAID, SELFPAY ==
[2024-05-09 09:58] LABS: Absolute Neutrophil Count 3.5 X10^3/uL (2.0-7.7); Basophil# 0.04 X10^3/uL; Basophil% 0.6 % (0-1); Eosinophil# 0.04 X10^3/uL; Eosinophils% 0.6 % (0-5); Hematocrit 34.9 % (37-47); Hemoglobin 10.9 g/dL (12.0-15.0); Lymphocyte % 27.2 % (19-41); Mean Corp Hgb Conc 31.2 g/dL (32-36); Mean Corpuscular Hgb 29.2 pg (27.0-32.0); Mean Corpuscular Volume 93.6 fL (81-99); Mean Platelet Vol. 10.6 fl (6.2-12.0); Monocyte# 1.24 X10^3/uL; Monocyte% 18.8 % (0-10); NRBC Flagged by Analyzer 0 % (0-5); Neutrophil # 3.46 X10^3/uL (2.7-7.7); Neutrophil % 52.3 % (47-70); Platelet Count 209 K/mm3 (150-450); RBC Distribution Width CV 14.3 % (11.6-14.6); RBC Distribution Width SD 48.9 fl (35.1-43.9); Red Blood Count 3.73 M/mm3 (4.2-5.4); White Blood Count 6.6 K/mm3 (4.4-11.0)
[2024-05-09 10:18] LABS: Cholesterol 124 mg/dL (200); High Density Lipoprotein 33 mg/dL; Triglycerides 211 mg/dL; Very Low Density Lipoprotein 42 mg/dL (5-40)
== END ==
LOC: OLS.ACH 05:00
PROVIDERS: Visit Provider Internal Medicine
DX: I10 Essential (primary) hypertension (principal); G35 Multiple sclerosis; E78.49 Other hyperlipidemia
CPT/HCPCS: 36415; 80061; 85025

== ENCOUNTER → 2024-08-01 | Outpatient (REF) | payer MEDICARE, MEDICAID, SELFPAY ==
[2024-08-01 09:22] LABS: Absolute Lymphocyte Count 2.38 X10^3/uL (0.83-4.51); Absolute Neutrophil Count 3.5 X10^3/uL (2.0-7.7); Basophil# 0.04 X10^3/uL; Basophil% 0.6 % (0-1); Eosinophil# 0.12 X10^3/uL; Eosinophils% 1.8 % (0-5); Hematocrit 35.6 % (37-47); Lymphocyte # 2.38 X10^3/ul (0.83-4.51); Lymphocyte % 35.1 % (19-41); Mean Corp Hgb Conc 30.9 g/dL (32-36); Mean Corpuscular Hgb 29.3 pg (27.0-32.0); Mean Corpuscular Volume 94.7 fL (81-99); Mean Platelet Vol. 10.8 fl (6.2-12.0); Monocyte# 0.75 X10^3/uL; Monocyte% 11.1 % (0-10); NRBC Flagged by Analyzer 0 % (0-5); Neutrophil # 3.47 X10^3/uL (2.7-7.7); Neutrophil % 51.1 % (47-70); Platelet Count 240 K/mm3 (150-450); RBC Distribution Width CV 14.3 % (11.6-14.6); RBC Distribution Width SD 49.2 fl (35.1-43.9); Red Blood Count 3.76 M/mm3 (4.2-5.4); White Blood Count 6.8 K/mm3 (4.4-11.0)
[2024-08-01 09:45] LABS: Cholesterol 123 mg/dL (200); High Density Lipoprotein 35 mg/dL; Triglycerides 212 mg/dL; Very Low Density Lipoprotein 42 mg/dL (5-40)
== END ==
LOC: OLS.ACH 05:00
PROVIDERS: Visit Provider Internal Medicine
DX: G35 Multiple sclerosis (principal); I10 Essential (primary) hypertension; E78.49 Other hyperlipidemia
CPT/HCPCS: 36415; 80061; 85025

== ENCOUNTER 2024-10-14 07:10 | Emergency (ER) | payer MEDICARE, MEDICAID, SELFPAY ==
[2024-10-14] VITALS (8 sets, daily range): BP systolic 108–126; BP diastolic 58–82; PULSE 78–88; RESP 12–18; TEMP 36.4–37.2; O2SAT 92–95; BMI 34.7
--- NOTE | 2024-10-14 07:19 | CT_ITS ---
HISTORY: AMS. TECHNIQUE: Multiple axial images were obtained of the head without intravenous contrast. A radiation dose optimization technique was used for this scan. 259 images. COMPARISON: MR 01/21/2021. FINDINGS: BRAIN PARENCHYMA: Mild chronic small vessel ischemic gliosis. No acute intra-axial hemorrhage. 1.5 cm cystic lesion in the left thalamus again seen. CSF SPACES: Cerebral ventricles, cortical sulci, and other extra-axial CSF spaces within normal limits in size for age. No midline shift or other significant mass effect. No acute extra-axial hemorrhage. OTHER: Intact calvarium. No significant air fluid levels in the paranasal sinuses or mastoid air cells. Unremarkable orbits. CT/Brain/Head without Contrast IMPRESSION: No acute intracranial process identified. Mild chronic small vessel ischemic gliosis. 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 Electronically Signed: Josefina Quiroga MD at 9:19 EST ,
--- NOTE | 2024-10-14 07:20 | EKG12_ITS ---
Test Reason : Blood Pressure : */* mmHG Vent. Rate : 82 BPM Atrial Rate : 82 BPM P-R Int : 164 ms QRS Dur : 96 ms QT Int : 396 ms P-R-T Axes : 46 -48 21 degrees QTcB Int : 462 ms Sinus rhythm with frequent Premature ventricular complexes Incomplete right bundle branch block Left anterior fascicular block Nonspecific T wave abnormality Abnormal ECG Confirmed by MAYUR HALL, MARKO ([id number]), acquisitions editor JARRED ARCOS ([id number]) on 10/17/2024 6:10:01 AM Referred By: Confirmed By: MARKO MERCHANT MD
--- NOTE | 2024-10-14 07:32 | EX.ED.DYSGE1 ---
HPI History of Present Illness Chief Complaint: General Illness Narrative Narrative: Patient is a 69-year-old female with a past medical history of multiple sclerosis, quadriplegia, neurogenic bladder, COPD, suprapubic catheter, atrial fibrillation, BMI greater than 30, hypertension, depression who presented to the emergency department via EMS with a chief complaint of unresponsive at the nursing facility. According to EMS they were doing their morning rounds and could not arouse the patient. By the time they arrived there she was on oxygen getting fluids. They noted that she was in the low 80s on room air. States that she is not normally on oxygen. Patient states that overall she had been feeling well except for the past 3 days she has been running a fever she cannot tell me the exact temperature. States that she also has had a dry cough. [facility] Medical History Urinary tract infection Urinary retention Neurogenic bladder Depression Bladder disease Multiple sclerosis History of ulceration Gastric reflux Former smoker COPD (chronic obstructive pulmonary disease) History of edema History of stress test Suprapubic catheter History of deviated nasal septum Hypertension History of atrial fibrillation Home Medications ?Medication ?Instructions ?Recorded ?Last Taken ?Type Aspercreme (lidocaine) 4 % transdermal PRN PRN Pain 03/10/21 Unknown History acetaminophen 500 mg tablet 1,000 mg PO Q6H PRN Pain 03/10/21 09/21/24 History ascorbic acid (vitamin C) 500 mg 500 mg PO DAILY 03/10/21 10/13/24 History tablet (Vitamin C) aspirin 81 mg tablet,delayed 81 mg PO DAILY 03/10/21 10/13/24 History release atorvastatin 40 mg tablet 40 mg PO QHS 03/10/21 10/13/24 History baclofen 20 mg tablet 20 mg PO TID 03/10/21 10/13/24 History calcium 600 mg (as 1 tab PO DAILY 03/10/21 10/13/24 History carbonate)-vitamin D3 10 mcg (400 unit) tablet (Calcium 600 + D(3)) camphor-menthol 0.2 %-3.5 % 1 applic topical DAILY PRN Pain 03/10/21 Unknown History topical gel cholecalciferol (vitamin D3) 50 50 mcg PO DAILY 03/10/21 10/13/24 History mcg (2,000 unit) capsule (Vitamin D3) cyclobenzaprine 10 mg tablet 10 mg PO TID PRN Muscle Spasm 03/10/21 Unknown History dextromethorphan-guaifenesin 10 10 ml PO Q4H PRN Cough 03/10/21 Unknown History mg-100 mg/5 mL oral syrup docusate sodium 100 mg capsule 100 mg PO DAILY PRN Constipation 03/10/21 10/12/24 History (Colace) famotidine 20 mg tablet 20 mg PO QHS 03/10/21 10/13/24 History guaifenesin 600 mg tablet, 600 mg PO Q12H PRN Congestion 03/10/21 10/13/24 History extended release 12 hr (Mucinex) hydrocodone-acetaminophen 5-325mg 1 tab PO Q6H PRN Pain 03/10/21 10/12/24 History 5mg-325mg ibuprofen 400 mg tablet 400 mg PO Q8H PRN Pain 03/10/21 Unknown History loratadine 10 mg capsule 10 mg PO DAILY 03/10/21 10/13/24 History magnesium citrate (Citrate of 150 ml PO DAILY PRN Constipation 03/10/21 Unknown History Magnesia oral) magnesium hydroxide 400 mg/5 mL 30 ml PO DAILY PRN Constipation 03/10/21 Unknown History oral suspension (Milk of Magnesia) multivitamin 1 cap PO DAILY 03/10/21 10/13/24 History polyethylene glycol 3350 17 gram 17 g PO QODAY 03/10/21 Unknown History oral powder packet (Miralax) salt moisturizing solution no1 1 spray intranasal DAILY PRN dry 03/10/21 Unknown History nares vitamin E 268 mg (400 unit) capsule 400 unit PO DAILY 03/10/21 10/13/24 History zinc 50 mg capsule 50 mg PO DAILY 03/10/21 10/13/24 History zinc oxide 20 % topical ointment 1 applic topical TID 03/10/21 Unknown History amino acids-protein hydrolysate 16 30 ml PO BID 10/14/24 10/13/24 History gram-100 kcal/30 mL oral liquid (Liquacel) cranberry fruit 450 mg tablet 450 mg PO BID 10/14/24 10/13/24 History (cranberry) cyanocobalamin (vitamin B-12) 500 500 mcg PO DAILY 10/14/24 10/13/24 History mcg tablet doxycycline hyclate 100 mg capsule 100 mg PO BID 7 days #14 caps 10/14/24 Unknown Rx ezetimibe 10 mg tablet 10 mg PO DAILY 10/14/24 10/13/24 History gabapentin 300 mg capsule 300 mg PO DAILY 10/14/24 10/13/24 History oxymetazoline 0.05 % nasal spray 3 spray intranasal Q12H 10/14/24 10/12/24 History (Nasal Decongestant (oxymetazoline)) pantoprazole 20 mg tablet,delayed 20 mg PO DAILY 10/14/24 10/13/24 History release prednisone 50 mg tablet 50 mg PO DAILY 5 days #5 tabs 10/14/24 Unknown Rx pyridoxine (vitamin B6) 100 mg 200 mg PO DAILY 10/14/24 10/13/24 History tablet Allergy/AdvReac Type Severity Reaction Status Date / Time ciprofloxacin (From Cipro) Allergy PT UNSURE Verified 10/14/24 07:11 OF REACTION nadolol Allergy PT UNSURE Verified 10/14/24 07:11 OF REACTION Penicillins Allergy PT UNSURE Verified 10/14/24 07:11 OF REACTION pregabalin Allergy PT UNSURE Verified 10/14/24 07:11 OF REACTION Surgical History S/P percutaneous endoscopic gastrostomy (PEG) tube placement Social History Smoking Status: Never smoker ROS ROS ED ROS Narrative Constitutional: Complains of fever as noted above denies chills, headaches, lightness, dizziness Eyes: Denies change in vision double vision blurry vision Cardiovascular: Denies chest pain or palpitations Respiratory: Complains dry cough as noted above denies wheezing or shortness of breath Abdomen: Denies abdominal pain nausea vomit diarrhea : States that she has chronic Hopkins catheter Neurological: States that she chronically cannot move any of her extremities this is not new for her Skin: Denies any rashes or lesions EXAM Physical Exam Narrative Exam Narrative: General: Patient lying in bed rest comfortably did not appear to be in acute distress Head: Atraumatic, normocephalic Eyes: PERRL bilaterally, EOMI bilaterally, no conjunctival injection noted Neck: Soft, supple, trachea midline Cardiovascular: Regular rate and rhythm no murmurs gallops rubs noted Respiratory: Clear to auscultation bilaterally no rales rhonchi or wheezes noted Abdomen: Soft, nondistended, nontender to palpation, bowel sounds present x 4 Extremities: Radial pulses +2/4 in the bilateral extremities, no pedal edema neuroexam Neurological: Patient following commands and that she was at [facility] year is 2024 Skin: Warm, dry Const Vital Signs: 10/14/24 07:11 10/14/24 07:18 10/14/24 07:18 Temperature 98.8 F 98.8 F Temperature Source Oral Oral Pulse Rate 82 88 Respiratory Rate 18 18 Respiratory Pattern Normal Blood Pressure 126/58 H 126/58 H Blood Pressure Mean 80 80 Pulse Ox 95 94 Oxygen Delivery Method Room Air Room Air 10/14/24 07:24 10/14/24 08:10 10/14/24 08:18 Temperature 98.8 F Temperature Source Oral Pulse Rate 82 80 Respiratory Rate 18 18 Respiratory Pattern Blood Pressure 125/64 H 120/82 H Blood Pressure Mean 84 94 Pulse Ox 92 93 Oxygen Delivery Method Room Air Room Air Room Air 10/14/24 09:10 10/14/24 10:26 10/14/24 11:00 Temperature 98.9 F 97.6 F L 98.9 F Temperature Source Oral Oral Oral Pulse Rate 84 86 79 Respiratory Rate 18 12 16 Respiratory Pattern Blood Pressure 108/63 123/72 H 124/78 H Blood Pressure Mean 78 89 93 Pulse Ox 93 93 95 Oxygen Delivery Method Room Air Room Air Room Air MDM MDM MDM Narrative Medical decision making narrative: Patient is a 69-year-old female who presented to the emerged part with chief complaint of altered mental status and low oxygen level at the nursing facility. On the differential diagnose includes but not limited to hypercapnic respiratory failure, cardiac arrhythmia, electrolyte abnormality, intracranial hemorrhage, ACS, pneumonia, obesity hypoventilatory syndrome. Once workup is obtained reviewed she will be reevaluated. Patient's VBG was reviewed by myself which showed a pH 7.44 with a pCO2 of 35. At 7:30 AM we were able to remove oxygen from the patient when she arrived here in the emergency department she has had no evidence hypoxia thus far vital signs remain normal. Patient is alert and oriented following commands. Patient's CBC reviewed showed no evidence leukocytosis white blood count was normal at 7.2, hemoglobin stable 11.5. Patient's sodium normal 142, potassium normal 3.6, creatinine was 0.62. Patient troponin normal at 6 with a delta troponin normal at 5. Patient's EKG reviewed and independently interpreted myself showed sinus rhythm with a rate of 82 bpm with premature ventricular complexes noted. Patient's TSH normal at 1.85. Patient urinalysis reviewed and showed positive nitrites 500 leukocytes esterase no white cells with 3+ bacteria this was sent for culture she does have chronic indwelling Hopkins catheter noted will hold off on antibiotics for now until culture results return. Patient chest x-ray reviewed by myself and by radiology showed mild basilar opacities concerning for atelectasis and pneumonia. Patient did test positive for COVID-19 here in the emergency department. She was given 60 mg of prednisone. She is given a dose of doxycycline here in the emergency department tolerated this well. Throughout the entirety of her stay here in the emergency department she has had no evidence hypoxia. Patient will be discharged back to the facility on steroids and doxycycline. Patient states that she does not have any allergies that she is aware of despite what is listed in her chart she states that she is unsure exactly what happens. She was advised to follow-up with her primary care physician outpatient and return with worsening symptoms or any concerns. She is agreeable this plan all question concerns answered she was discharged home in stable condition. Lab Data Labs: Laboratory Results - last 24 hr 10/14/24 10/14/24 10/14/24 07:25 08:20 09:44 WBC 7.2 RBC 3.98 L Hgb 11.5 L Hct 36.1 L MCV 90.7 MCH 28.9 MCHC 31.9 L RDW Std Deviation 49.2 H RDW Coeff of Joshua 14.9 H Plt Count MPV 10.3 Immature Gran % (Auto) 0.400 Neut % (Auto) 45.2 L Lymph % (Auto) 36.1 [place] % (Auto) 17.4 H Eos % (Auto) 0.3 Baso % (Auto) 0.6 Absolute Neuts (auto) 3.2 Absolute Lymphs (auto) 2.59 Nucleated RBC % 0 Differential Comment SCANNED Platelet Estimate ADEQUATE RBC Morphology NORM C+C Sodium 142 Potassium 3.6 Chloride 110 H Carbon Dioxide 26.0 Anion Gap 6 BUN 12 Creatinine 0.62 Estim Creat Clear Calc 68.21 Est GFR (MDRD) Af Amer 121 Est GFR (MDRD) Non-Af 100 BUN/Creatinine Ratio 19.2 Glucose 108 H Calcium 8.9 Troponin I High Sens 6 5 TSH 1.850 Urine Color Straw Urine Clarity Sl. Cloudy Urine pH 7.0 Ur Specific [place] 1.005 Urine Protein 15 H Urine Glucose (UA) Normal Urine Ketones Negative Urine Occult Blood 10 H Urine Nitrite Positive H Urine Bilirubin Negative Urine Urobilinogen Normal Ur Leukocyte Esterase 500 H Urine RBC 0 SEEN Urine WBC 0-5 SEEN Ur Squamous Epith Cells 0-5 SEEN Urine Bacteria 3+ Urine Mucus 0 SEEN ABG Data ABG results: ABG 10/14/24 07:32 Specimen Type TRESA Sample Site Not entered O2 % 21.0 VBG pH 7.44 H VBG pO2 53 H VBG HCO3 24 VBG Total CO2 25 VBG O2 Sat (Calc) 89 H VBG Base Excess 0 POC Mix VBG pCO2 Pt Tmp 35.2 L O2 Delivery Device Room Air Radiography Diagnostic Testing: Clinical Impression(s) from Imaging Studies Brain CT 10/14/24 07:19 IMPRESSION: No acute intracranial process identified. Mild chronic small vessel ischemic gliosis. 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 Electronically Signed: Josefina Quiroga MD at 9:19 EST , Chest X-Ray 10/14/24 07:40 IMPRESSION: Mild bibasilar opacities concerning for atelectasis and pneumonia. Electronically Signed: Josefina Quiroga MD at 9:38 EST , Discharge Plan Triage Chief Complaint: General Illness ED Provider: Abel Wang Dx/Rx/DC Orders Clinical Impression: COVID-19, COPD (chronic obstructive pulmonary disease) Prescriptions: New prednisone 50 mg tablet 50 mg PO DAILY 5 Days Qty: 5 0RF doxycycline hyclate 100 mg capsule 100 mg PO BID 7 Days Qty: 14 0RF No Action Aspercreme (lidocaine) 4 % transdermal PRN PRN (Reason: Pain) atorvastatin 40 mg Tablet 40 mg PO QHS aspirin 81 mg Tablet,Delayed Release (Dr/Ec) 81 mg PO DAILY acetaminophen 500 mg Tablet 1,000 mg PO Q6H PRN (Reason: Pain) baclofen 20 mg Tablet 20 mg PO TID camphor-menthol 0.2-3.5 % Gel 1 applic TOPICAL DAILY PRN (Reason: Pain) cyclobenzaprine 10 mg Tablet 10 mg PO TID PRN (Reason: Muscle Spasm) polyethylene glycol 3350 [Miralax] 17 gram Powder In Packet 17 g PO QODAY hydrocodone-acetaminophen 5-325 mg Tablet 1 tab PO Q6H PRN (Reason: Pain) dextromethorphan-guaifenesin 10-100 mg/5 mL Syrup 10 ml PO Q4H PRN (Reason: Cough) zinc oxide 20 % Ointment 1 applic TOPICAL TID famotidine 20 mg Tablet 20 mg PO QHS magnesium hydroxide [Milk of Magnesia] 400 mg/5 mL Suspension 30 ml PO DAILY PRN (Reason: Constipation) ascorbic acid (vitamin C) [Vitamin C] 500 mg Tablet 500 mg PO DAILY ibuprofen 400 mg Tablet 400 mg PO Q8H PRN (Reason: Pain) docusate sodium [Colace] 100 mg Capsule 100 mg PO DAILY PRN (Reason: Constipation) magnesium citrate [Citrate of Magnesia] Solution 150 ml PO DAILY PRN (Reason: Constipation) multivitamin Capsule 1 cap PO DAILY vitamin E 400 unit Capsule 400 unit PO DAILY zinc 50 mg Capsule 50 mg PO DAILY calcium carbonate-vitamin D3 [Calcium 600 + D(3)] 600 mg(1,500mg) -400 unit Tablet 1 tab PO DAILY cholecalciferol (vitamin D3) [Vitamin D3] 50 mcg (2,000 unit) Capsule 50 mcg PO DAILY salt moisturizing solution no1 Mist 1 spray INTRANASAL DAILY PRN (Reason: dry nares) loratadine 10 mg Capsule 10 mg PO DAILY guaifenesin [Mucinex] 600 mg Tablet Extended Release 12hr 600 mg PO Q12H PRN (Reason: Congestion) gabapentin 300 mg capsule 300 mg PO DAILY pantoprazole 20 mg tablet,delayed release (DR/EC) 20 mg PO DAILY cyanocobalamin (vitamin B-12) 500 mcg tablet 500 mcg PO DAILY pyridoxine (vitamin B6) 100 mg tablet 200 mg PO DAILY ezetimibe 10 mg tablet 10 mg PO DAILY cranberry 450 mg tablet 450 mg PO BID Rx Instructions: administer with meals Liquacel 16-100 gram-kcal/30 mL liquid 30 ml PO BID oxymetazoline [Nasal Decongestant (oxymetazl)] 0.05 % spray,non-aerosol 3 spray INTRANASAL Q12H Patient Comments: [NO ORIGINAL SIG] Primary Care Provider: [facility] Doctor,Out of Referrals: [facility] Doctor,Out of [Primary Care Provider] - Activity Restrictions/Additional Instructions: Follow-up with your doctor in outpatient setting at the nursing facility. Return with worsening symptoms or concerns. Take steroids and antibiotics as prescribed. You tested positive for COVID-19 here in the emergency department. There is no evidence of low oxygen saturations here in the emergency department. Follow-up on urine culture in the outpatient setting as well to ensure you do not have a urinary tract infection and need antibiotics for this. Print Language: [place] Disposition Disposition: Home, Self Care
[2024-10-14 07:34] LABS: Absolute Lymphocyte Count 2.59 X10^3/uL (0.83-4.51); Absolute Neutrophil Count 3.2 X10^3/uL (2.0-7.7); Basophil# 0.04 X10^3/uL; Basophil% 0.6 % (0-1); Eosinophil# 0.02 X10^3/uL; Eosinophils% 0.3 % (0-5); Hematocrit 36.1 % (37-47); Hemoglobin 11.5 g/dL (12.0-15.0); Lymphocyte # 2.59 X10^3/ul (0.83-4.51); Lymphocyte % 36.1 % (19-41); Mean Corp Hgb Conc 31.9 g/dL (32-36); Mean Corpuscular Hgb 28.9 pg (27.0-32.0); Mean Corpuscular Volume 90.7 fL (81-99); Mean Platelet Vol. 10.3 fl (6.2-12.0); Monocyte# 1.25 X10^3/uL; Monocyte% 17.4 % (0-10); NRBC Flagged by Analyzer 0 % (0-5); Neutrophil # 3.24 X10^3/uL (2.7-7.7); Neutrophil % 45.2 % (47-70); POSITIVE COUNT YES; RBC Distribution Width CV 14.9 % (11.6-14.6); RBC Distribution Width SD 49.2 fl (35.1-43.9); Red Blood Count 3.98 M/mm3 (4.2-5.4); White Blood Count 7.2 K/mm3 (4.4-11.0)
[2024-10-14 07:36] LABS: Blood Gas Specimen Type VEN; O2 Delivery Device Room Air; SITE Not entered; VBG BASE EXCESS 0 mmol/L (-1.0-3.5); VBG Bicarbonate 24 mmol/L (22-26); VBG PO2 53 mmHg (25-40); VBG SO2 89 % (50-70); VBG TCO2 25 mmol/L (23-33); VBG pCO2 35.2 mmHg (41-51); VBG pH 7.44 (7.32-7.42)
--- NOTE | 2024-10-14 07:40 | RAD_ITS ---
HISTORY: chest pain. TECHNIQUE: XR Chest 2 Views. COMPARISON: 09/08/2022. FINDINGS: CARDIOMEDIASTINAL BORDERS: Cardiac silhouette within normal limits in size. Mediastinal contour also unchanged. LUNGS: Mild bibasilar opacities. PLEURA: No pleural effusion or pneumothorax seen. OSSEOUS STRUCTURES: Degenerative change and thoracic scoliosis again seen. Osteopenia. RAD/Chest PA and Lateral IMPRESSION: Mild bibasilar opacities concerning for atelectasis and pneumonia. Electronically Signed: Josefina Quiroga MD at 9:38 EST ,
[2024-10-14] MEDS: 0.9% Normal Saline (1000mL) 1,000 ML 999 ML IV (07:53)
[2024-10-14 07:57] LABS: Differential Indicated SCAN CRITERIA MET
[2024-10-14 08:15] LABS: Anion Gap 6 (5-15); BUN 12 mg/dL (7-18); BUN/Creat Ratio 19.2 RATIO (10-20); Calcium,Total 8.9 mg/dL (8.5-10.1); Chloride 110 mmol/L (98-107); Creatinine, Serum 0.62 mg/dL (0.55-1.02); EST Glomerular Filtration Rate 100 mL/min (>60); Est Glom Filt Rate - Afr Amer 121 mL/min (>60); Estimated Creatinine Clearance 68.21 ml/min; Glucose 108 mg/dL (74-106); Potassium 3.6 mmol/L (3.5-5.1); Sodium Level 142 mmol/L (136-145); Troponin-I HS (w/2H Reflex) 6 pg/mL (3.0-54.0)
[2024-10-14 08:26] LABS: Mucous, Urine 0 SEEN /hpf (<or=2+); Red Blood Cells-Urine 0 SEEN /hpf (0-5)
[2024-10-14 08:36] LABS: Color, Urine Straw (Yellow); Glucose, Dipstick Normal (Normal); Ketone-Dipstick Negative (Negative); Leukocyte Esterase-Dipstick 500 /ul (Negative); Nitrite-Dipstick Positive (Negative); Occult Blood-Urine 10 /ul (Negative); Protein-Dipstick 15 mg/dl (Negative); Specific Gravity, Urine 1.005 (1.002-1.030); Urine Bilirubin Dipstick Negative (Negative); Urine Clarity Sl. Cloudy (Clear); Urine Urobilinogen Normal (Normal)
[2024-10-14 08:49] LABS: Bacteria 3+ /hpf (None Seen); Squamous Epithelial Cells - UA 0-5 SEEN /hpf (5-10); White Blood Cells 0-5 SEEN /hpf (0-5)
[2024-10-14 08:59] LABS: Differential Comment SCANNED; Platelet Estimate ADEQUATE (ADEQ); Red Cell Morphology NORM C+C NORMAL (NORM C&C)
[2024-10-14 09:28] LABS: Reflex Troponin-HS? (from REC) Y
[2024-10-14] MEDS: predniSONE 20 MG Tablet 60 MG PO (09:44)
[2024-10-14 10:12] LABS: Troponin-I HS 5 pg/mL (3.0-54.0)
[2024-10-14] MEDS: Doxycycline 100 MG CAPSULE PO (11:20)
== END 2024-10-14 11:36 | disposition home or self-care (01) ==
PROVIDERS: Emergency Provider Emergency Medicine; Visit Provider Emergency Medicine
DX: U07.1 COVID-19 (principal); J44.9 Chronic obstructive pulmonary disease, unspecified; I48.91 Unspecified atrial fibrillation; I10 Essential (primary) hypertension; R50.9 Fever, unspecified; Z79.82 Long term (current) use of aspirin; Z79.899 Other long term (current) drug therapy; K21.9 Gastro-esophageal reflux disease without esophagitis
CPT/HCPCS: 70450; 71046; 80048; 81001; 82803; 84443; 84484; 85025; 87077; 87086; 87088; 87186; 87631; 93005; 96360; 96361; 99285; A4216

== ENCOUNTER → 2024-10-24 05:00 | Outpatient (REF) | payer MEDICARE, MEDICAID, SELFPAY ==
[2024-10-24 09:52] LABS: Absolute Lymphocyte Count 2.74 X10^3/uL (0.83-4.51); Absolute Neutrophil Count 4.3 X10^3/uL (2.0-7.7); Basophil# 0.03 X10^3/uL; Basophil% 0.4 % (0-1); Eosinophil# 0.16 X10^3/uL; Hematocrit 34.1 % (37-47); Hemoglobin 10.7 g/dL (12.0-15.0); Lymphocyte # 2.74 X10^3/ul (0.83-4.51); Lymphocyte % 34.2 % (19-41); Mean Corp Hgb Conc 31.4 g/dL (32-36); Mean Corpuscular Volume 92.4 fL (81-99); Mean Platelet Vol. 10.5 fl (6.2-12.0); Monocyte# 0.73 X10^3/uL; Monocyte% 9.1 % (0-10); NRBC Flagged by Analyzer 0 % (0-5); Neutrophil # 4.28 X10^3/uL (2.7-7.7); Neutrophil % 53.4 % (47-70); Platelet Count 213 K/mm3 (150-450); RBC Distribution Width CV 14.6 % (11.6-14.6); RBC Distribution Width SD 49.4 fl (35.1-43.9); Red Blood Count 3.69 M/mm3 (4.2-5.4)
[2024-10-24 10:08] LABS: Cholesterol 121 mg/dL (200); High Density Lipoprotein 32 mg/dL; Triglycerides 226 mg/dL; Very Low Density Lipoprotein 45 mg/dL (5-40)
== END ==
LOC: OLS.ACH 05:00
PROVIDERS: Visit Provider Internal Medicine
DX: G35 Multiple sclerosis (principal); I10 Essential (primary) hypertension; E78.49 Other hyperlipidemia
CPT/HCPCS: 36415; 80061; 85025

== ENCOUNTER → 2025-01-16 | Outpatient (REF) | payer MEDICARE, MEDICAID, SELFPAY ==
[2025-01-16 09:15] LABS: Absolute Lymphocyte Count 2.76 X10^3/uL (0.83-4.51); Absolute Neutrophil Count 3.7 X10^3/uL (2.0-7.7); Basophil# 0.05 X10^3/uL; Basophil% 0.7 % (0-1); Eosinophil# 0.15 X10^3/uL; Hematocrit 36.4 % (37-47); Hemoglobin 11.4 g/dL (12.0-15.0); Lymphocyte # 2.76 X10^3/ul (0.83-4.51); Mean Corp Hgb Conc 31.3 g/dL (32-36); Mean Corpuscular Hgb 29.2 pg (27.0-32.0); Mean Corpuscular Volume 93.1 fL (81-99); Mean Platelet Vol. 10.8 fl (6.2-12.0); Monocyte# 0.74 X10^3/uL; Monocyte% 9.9 % (0-10); NRBC Flagged by Analyzer 0 % (0-5); Neutrophil # 3.73 X10^3/uL (2.7-7.7); Platelet Count 247 K/mm3 (150-450); RBC Distribution Width CV 14.9 % (11.6-14.6); RBC Distribution Width SD 50.8 fl (35.1-43.9); Red Blood Count 3.91 M/mm3 (4.2-5.4); White Blood Count 7.5 K/mm3 (4.4-11.0)
[2025-01-16 09:46] LABS: Cholesterol 128 mg/dL (<=200); High Density Lipoprotein 31 mg/dL; Low Density Lipoprotein Calc. 56 mg/dL; Triglycerides 204 mg/dL; Very Low Density Lipoprotein 41 mg/dL (5-40); cholesterol:hdl ratio screen 4.13
== END ==
LOC: OLS.ACH 04:00
PROVIDERS: Referring Provider Internal Medicine; Visit Provider Internal Medicine
DX: G35 Multiple sclerosis (principal); I10 Essential (primary) hypertension; E78.49 Other hyperlipidemia
CPT/HCPCS: 36415; 80061; 85025

== ENCOUNTER → 2025-02-26 05:00 | Outpatient (REF) | payer MEDICARE, MEDICAID, SELFPAY ==
[2025-02-26 08:28] LABS: Hematocrit 34.7 % (37-47); Mean Corp Hgb Conc 31.7 g/dL (32-36); Mean Corpuscular Hgb 29.3 pg (27.0-32.0); Mean Corpuscular Volume 92.3 fL (81-99); Mean Platelet Vol. 10.6 fl (6.2-12.0); Platelet Count 231 K/mm3 (150-450); RBC Distribution Width CV 14.3 % (11.6-14.6); RBC Distribution Width SD 48.4 fl (35.1-43.9); Red Blood Count 3.76 M/mm3 (4.2-5.4); White Blood Count 6.5 K/mm3 (4.4-11.0)
[2025-02-26 08:43] LABS: ALB/GLOB Ratio 1.6 RATIO (0.9-2.4); AST(SGOT) 27 U/L (<=31); Alanine Aminotransfer ALT/SGPT 29 U/L (<=34); Albumin, Serum 3.6 g/dL (3.4-4.8); Alkaline Phosphatase 81 U/L (35-104); Anion Gap 11 (5-15); BUN 15 mg/dL (4-19); BUN/Creat Ratio 24.2 RATIO (10-20); Calcium,Total 9.1 mg/dL (7.6-11.0); Chloride 111 mmol/L (98-108); EST Glomerular Filtration Rate 96 (>60); Globulin 2.3 g/dL (2.2-4.2); Glucose 118 mg/dL (70-99); Potassium 4.1 mmol/L (3.3-5.1); Protein, Total 5.9 g/dL (5.9-8.4); Sodium Level 145 mmol/L (133-145); Total Bilirubin 0.22 mg/dL (0.00-1.30)
== END ==
LOC: OLS.ACH 05:00
PROVIDERS: Visit Provider Internal Medicine
DX: G35 Multiple sclerosis (principal)
CPT/HCPCS: 36415; 80053; 85027

== ENCOUNTER → 2025-04-10 | Outpatient (REF) | payer MEDICARE, MEDICAID, SELFPAY ==
--- OUTSIDE RECORDS SUMMARY | 2025-04-10 03:57 | XMS RPT_ITS | CCD ---
Author Organization [facility] Care Team Providers Care Electrician Sound Name Role Phone KOVINK, MARISELA Unavailable Unavailable ERNESTO, CISCO S Unavailable [...] HEATH Attending Unavailable RENETTA HEATH Attending Unavailable Portillo Trujillo Primary Care Provider Portillo Trujillo Primary Care Provider Portillo Trujillo Primary Care Provider Dr. Portillo Trujillo Primary Care Provider Dr. Vern Mcintosh Emergency Provider [phone] Dr. Wojciech Hodge Attending Provider Dr. Wojciech Hodge Admit Provider Dr. Wojciech Hodge Other Provider Dr. Maco Blackmon Attending Provider Dr. Maco Blackmon Other Provider Dr. Gail Houston Other Provider Portillo Trujillo Primary Care Provider [phone] Portillo Trujillo DO Primary Care Provider [phone] Ronnie MACEDO Portillo Pressley Primary Care Provide r POSTLETHSEAN, TINY MERLOS Attending Lamarva MARISELA Almeida Referring Unavailable RONNIE PORTILLO PRESSLEY Primary Care Unavail able Town Doctor, Out of Primary Care Provider Sherron Guerrero MD, Twan Attending Provider Unavailable Cesar MD, Twan Referring Provider Unavailable Town Doctor, Out of Primary Care Unavailable Deperro OLS, Twan Attending Unavailable Town Doctor, Out of Primary Care Unavailable Deperro OLS, Twan Attending Unavailable Town Doctor, Out of Primary Care Unavailable Deperro OLS, Twan Attending Unavailable Town Doctor, Out of Primary Care Unavailable Deperro OLS, Twan Attending Unavailable Abel Wang Attending Unavailable Town Doctor, Out of Primary Care Unavailable Rashard Higgins Referring Unavailable Town Doctor, Out of Primary Care Unavailable Rashard Higgins Attending Unavailable Town Doctor, Out of Primary Care Unavailable Deperro OLS, Twan Attending Unavailable Deperro OLS, Twan Referring Unavailable Allergies Allergy Classification Reported Allergen(s) Allergy Type Date of Onset Reaction(s) Facility (20 sources) ciprofloxacin; Translations: [CIPROFLOXACIN] Drug Allergy 6 Mental Status Change [facility] Repository (20 sources) nadolol; Translations: [NADOLOL] Drug Allergy [address] [facility] Repository (19 sources) penicillin; Translations: [PENICILLIN V] Drug Allergy [address] [facility] Rep[facility] (20 sources) pregabalin; Translations: [PREGABALIN] Drug Allergy [address] [facility] Repository (2 sources) OTHER; Translations: [OTHER] Propensity to adverse reactions (disorder) [address] [facility] Repository (17 sources) All Cillins [Other] Propensity to adverse reactions 3 [facility] (20 sources) Penicillins; Translations: [Penicillins] Allergy to substance 1 PT UNSURE OF REACTION [facility] [place] Medications Current Medications Medication Drug Class(es) Dates Sig (Normalized) Sig (Original) acetaminophen 325 mg oral tablet (20 sources) Start: 05-12-2022 take 2 tablets by mouth every six hours acetaminophen (TYLENOL) 325 mg tablet Take 2 tablets by mouth every 6 hours. 240 tablet 05/12/2022 Active Start: 03-10-2021 acetaminophen (TYLENOL) 500 mg tablet Take 1,000 mg by mouth. 03/10/2021 Active Start: 03-10-2021 take 1000 mg by mout h every six hours Acetaminophen Active 1000 MG PO EVERY 6 HOURS March 10, 2021 12:00am Comment on above: Take 1,000 mg by radhames th. Take 2 tablets by mo uth every 6 hours. acetaminophen 325 mg / HYDROcodone bitartrate 5 mg oral tablet (20 sources) Opioid Agonist Start: 03-10-2021 Hydrocodone-Acetamin ophen 5-325 mg Tablet Active 1 {tbl} PO EVERY 6 HOURS as needed for Pain March 10, 2021 12:00am Start: 03-10-2021 take 1 tablet by radhames th every six hours Hydrocodone-Acetaminophen Active 1 TABLE T PO EVERY 6 HOURS March 10, 2021 12:00am Comment on above: Take 1 tablet by radhames th every 6 hours as needed for Pain. Amino Acids-Protein Hydrolys (Liquacel) 16-100 gram-kcal/30 mL liquid (1 source) Start: 10-14-2024 Amino Acids-Protein Hydrolys (Liquacel) 16-100 gram-kcal/30 mL liquid Active 30 mL PO TWICE A DAY October 14, 2024 1:00am ascorbic acid 500 mg oral tablet (20 sources) Vitamin C Start: 03-10-2021 take 1 tablet by mouth once daily Ascorbic Acid (Vitamin C) (Vitamin C) 500 mg Tablet Active 500 mg PO DAILY March 10, 2021 12:00am Start: 03-10-2021 take 1 tablet by radhames th twice daily Ascorbic Acid (Vitamin C) (Vitamin C) 500 mg Tablet Active 500 MG PO TWICE A DAY March 10, 2021 12:00am take 1 tablet by radhames th twice daily Ascorbic Acid 1,000 mg tablet Take 1,000 mg by mouth twice daily. Active Comment on above: Take 1,000 mg by radhames th twice daily. aspirin 81 mg delayed release oral tablet (20 sources) Platelet Aggregation Inhibitor, Nonsteroidal Anti-inflammatory Drug Start: 03-10-20 take 1 tablet by mouth once daily Aspirin 81 mg Tablet,Delayed Release (Dr/Ec) Active 81 mg PO DAILY March 10, 2021 12:00am Comment on above: Take 81 mg by mouth once daily. atorvastatin 40 mg oral tablet (20 sources) HMG-CoA Reductase Inhibitor Start: 03-10-20 take 1 tablet by mouth at bedtime Atorvastatin 40 mg Tablet Active 40 mg PO AT BEDTIME March 10, 2021 12:00am Comment on above: Take 40 mg by mouth. baclofen 20 mg oral tablet (20 sources) gamma-Aminobutyric Acid-ergic Agonist Start: 03-10-20 take 1 tablet by mouth three times daily Baclofen 20 mg Tablet Active 20 mg PO THREE TIMES A DAY March 10, 2021 12:00am Comment on above: Take 20 mg by mouth three times daily. calcium carbonate 1500 mg / cholecalciferol 0.01 mg oral tablet (20 sources) Vitamin D Start: 03-10-20 calcium carbonate 600 mg-cholecalciferol 400 units 600 mg-10 mcg (400 unit) tab Take by mouth. 03/10/2021 Active Start: 03-10-2021 calcium carbon ate 600 mg-cholecalciferol 400 units 600 mg-10 mcg (400 unit) tab Take by mouth. 0 03/10/2021 Active Start: 03-10-2021 Calcium Carbon ate-Vitamin D3 (Calcium 600 + D(3)) 600 mg(1,500mg) -400 unit Tablet Active 1 {tbl} PO DAILY March 10, 2021 12:00am Comment on above: Take by mouth. camphor 0.002 mg/mg / menthol 0.035 mg/mg topical gel (20 sources) Start: 03-10-2021 Camphor-Mentho l 0.2-3.5 % Gel Active 1 NMA TOPICAL DAILY as needed for Pain March 10, 2021 12:00am Start: 03-10-2021 Camphor-Mentho l Active 1 APPLIC TOPICAL DAILY March 10, 2021 12:00am Carboxymethylcellulose (14 sources) carboxymethylcel lulose sodium (REFRESH OPHTHALMIC) Use in eyes. Active carboxymethylcel lulose sodium (REFRESH OPHTHALMIC) Use in eyes. 0 Active Comment on above: Use in eyes. cholecalciferol 0.05 mg oral capsule (20 sources) Vitamin D Start: take 1 capsule by mouth once daily Cholecalciferol (Vitamin D3) (Vitamin D3) 50 mcg (2,000 unit) Capsule Active 50 ug PO DAILY March 10, 2021 12:00am CRANBERRY FRUIT EXTRACT (CRANBERRY ORAL) (17 sources) take 400 mg by mouth twice daily CRANBERRY FRUIT EXTRACT (CRANBERRY ORAL) Take 400 mg by mouth twice daily. Active take 400 mg by mouth twice daily CRANBERRY FRUIT EXTRACT (CRANBERRY ORAL) Take 400 mg by mouth twice daily. 0 Active Comment on above: Take 400 mg by mouth twice daily. Cranberry Fruit (20 sources) Non-Standardized Food Allergenic Extract, Non-Standardized Plant Allergenic Extract Start: 10-14-2024 take 1 tablet by mouth twice daily at mealtime Cranberry Fruit (Cranberry) 450 mg tablet Active 450 mg PO TWICE A DAY October 14, 2024 1:00am administer with meals Start: 03-10-2021 take 400 mg by mouth twice daily Cranberry Active 400 MG PO TWICE A DAY March 10, 2021 3:00pm Start: 03-10-2021 End: 10-14-2024 take 1 capsule by mouth twice daily Cranberry Fruit 400 mg Capsule Discontinued 400 mg PO TWICE A DAY March 10, 2021 12:00am October 14, 2024 8:31am Start: 03-10-2021 take 400 mg by mouth twice daily Cranberry Active 400 MG PO TWICE A DAY March 09, 2021 11:00pm Start: 03-10-2021 take 400 mg by mouth twice daily Cranberry Active 400 MG PO TWICE A DAY March 10, 2021 12:00am cyclobenzaprine hydrochloride 10 mg oral tablet (20 sources) Muscle Relaxant Start: 03-10-2021 take 1 tablet by mouth three times daily as needed for muscle spasms Cyclobenzaprine 10 mg Tablet Active 10 mg PO THREE TIMES A DAY as needed for Muscle Spasm March 10, 2021 12:00am dextromethorphan hydrobromide 2 mg/ml / guaiFENesin 20 mg/ml oral solution (20 sources) Uncompetitive R-gojuoj-J-asparta te Receptor Antagonist, Sigma-1 Agonist Start: 03-10-2021 take 1 mL by mouth every four hours as needed for cough Dextromethorphan-Gua ifenesin 10-100 mg/5 mL Syrup Active 10 mL PO Q4H as needed for Cough March 10, 2021 12:00am Start: 03-10-2021 take 1 mL by mouth every four hours Dextromethorphan-Guaifenesin Active 10 M L PO Q4H March 10, 2021 12:00am docusate sodium 100 mg oral capsule (20 sources) Start: 03-10-2021 take 1 capsule by mo uth once daily as needed for constipation Docusate Sodium (Colace) 100 mg Capsule Active 100 mg PO DAILY as needed for Constipation March 10, 2021 12:00am DOCUSATE SODIUM ORAL Take 100 mg by mouth as needed. Active Comment on above: Take 100 mg by mouth as needed. doxycycline hyclate 100 mg oral capsule (1 source) Tetracycline-class Drug Start: 10-14-19 take 1 capsule by mouth twice daily Doxycycline Hyclate 100 mg capsule Active 100 mg PO TWICE A DAY 14 7 October 14, 2024 1:00am ergocalciferol 1.25 mg oral capsule (17 sources) Provitamin D2 Compound take 1 capsule by mouth every week ergocalciferol 50,000 unit capsule (VITAMIN D2, DRISDOL) Take 50,000 Units by mouth once each week. Active Comment on above: Take 50,000 Units by mouth once each week. ezetimibe 10 mg oral tablet (10 sources) Dietary Cholesterol Absorption Inhibitor Start: 10-14-19 take 1 tablet by mouth once daily Ezetimibe 10 mg tablet Active 10 mg PO DAILY October 14, 2024 1:00am take 1 tablet by radhames once daily at bedtime ezetimibe (ZETIA) 10 mg tablet Take 10 m g by mouth daily at bedtime. 0 Active Comment on above: Take 10 mg by mouth daily at bedtime. famotidine 20 mg oral tablet (20 sources) Histamine-2 Receptor Antagonist Start: 03-10-2021 take 1 tablet by mouth at bedtime Famotidine 20 mg Tablet Active 20 mg PO AT BEDTIME March 10, 2021 12:00am Comment on above: Take 20 mg by mouth. gabapentin 300 mg oral capsule (20 sources) Anti-epileptic Agent Start: 10-14-2024 take 1 capsule by mouth once daily Gabapentin 300 mg capsule Active 300 mg PO DAILY October 14, 2024 1:00am Start: 03-10-2021 End: 10-14-2024 take 1 tablet by mouth twice daily Gabapentin 400 mg Tablet Discontinued 400 mg PO TWICE A DAY March 10, 2021 12:00am October 14, 2024 8:26am take 1 capsule by mo ut three times daily gabapentin (NEURONTIN) 300 mg capsule Take 300 mg by mouth three times daily. Active Comment on above: Take 300 mg by mouth three times daily. 12 hr guaiFENesin 600 mg extended release oral tablet (20 sources) Start: 03-10-20 take 1 tablet by mouth every twelve hours as needed for congestion, then take 1 tablet by mouth every twelve hours as needed for congestion Guaifenesin (Mucinex) 600 mg Tablet Extended Release 12hr Active 600 mg PO Q12H as needed for Congestion March 10, 2021 12:00am ibuprofen 600 mg oral tablet (20 sources) Nonsteroidal Anti-inflammatory Drug Start: 05-12-20 take 1 tablet by mouth every six hours ibuprofen (MOTRIN) 600 mg tablet Take 1 tablet by mouth every 6 hours. 120 tablet 05/12/2022 Active Start: 03-10-2021 take 1 tablet by radhames th every eight hours as needed for pain Ibuprofen 400 mg Tablet Active 400 mg PO Q8H as needed for Pain March 10, 2021 12:00am take 1 tablet by radhames every eight hours as needed ibuprofen (MOTRIN) 200 mg tablet Take 200 mg by mouth every 8 hours as needed for Pain. 0 Active Comment on above: Take 200 mg by mouth every 8 hours as needed for Pain. Take 1 tablet by radhames th every 6 hours. lidocaine 0.05 mg/mg medicated patch (17 sources) Antiarrhythmic, Amide Local Anesthetic lidocaine (LIDODERM) 5 % Apply 1 Patch as directed as needed. Active Comment on above: Apply 1 Patch as dir ected as needed. loratadine 10 mg oral capsule (20 sources) Start: 03-10-2021 take 1 capsule by mouth once daily Loratadine 10 mg Capsule Active 10 mg PO DAILY March 10, 2021 12:00am take 1 tablet by mouth once bharat y loratadine (CLARITIN) 10 mg tablet Take 10 mg by mouth once daily. Active Comment on above: Take 10 mg by mouth once daily. magnesium citrate 58.2 mg/ml oral solution (20 sources) Start: take 1 mL by mouth once daily as needed for constipation Magnesium Citrate (Citrate Of Magnesia) Solution Active 150 mL PO DAILY as needed for Constipation March 10, 2021 12:00am Start: 03-10-2021 take 1 mL by mouth once daily Magnesium Citrate (Citrate Of Magnesia) Solution Active 150 ML PO DAILY March 10, 2021 12:00am Magnesium Hydroxide (20 sources) Start: 03-10-2021 take 1 mL by mouth o nce daily as needed for constipation Magnesium Hydroxide (Milk Of Magnesia) 400 mg/5 mL Suspension Active 30 mL PO DAILY as needed for Constipation March 10, 2021 12:00am Start: 03-10-2021 take 1 mL by mouth once daily Magnesium Hydroxide (Milk Of Magnesia) 400 mg/5 mL Suspension Active 30 ML PO DAILY March 10, 2021 12:00am take 30 mL by mouth once daily as needed for constipation magnesium hydroxide (MOM) 400 mg/5 mL suspension Take 30 mL by mouth once daily as needed for Constipation. Active Comment on above: Take 30 mL by mouth once daily as needed for Constipation. melatonin 1 mg oral tablet (17 sources) take 1 tablet by mouth every twenty-four hours as needed melatonin 1 mg tab Take 1 mg by mouth at bedtime as needed. Active Comment on above: Take 1 mg by mouth a t bedtime as needed. menthol 0.04 mg/mg topical gel (17 sources) menthol (BIOFREE ZE) 4 % topical gel Apply 4 % to affected area as needed. Active Comment on above: Apply 4 % to affecte d area as needed. menthol/camphor (BIOFREEZE TOPICAL) (8 sources) menthol/camphor (BIOFREEZE TOPICAL) Apply to affected area. Active menthol/camphor (BIOFREEZE TOPICAL) Apply to affected area. 0 Active Comment on above: Apply to affected ar ea. milk thistle/NAC/dandel/turmer (LIVER COMPLEX ORAL) (14 sources) milk thistle/NAC/dandel/turmer (LIVER COMPLEX ORAL) Take by mouth. Active milk thistle/NAC /dandel/turmer (LIVER COMPLEX ORAL) Take by mouth. 0 Active Comment on above: Take by mouth. Multivitamin Capsule (1 source) Start: 03-10-2021 Multivitamin Capsule Active 1 NMA PO DAILY March 10, 2021 12:00am Multivitamin preparation (20 sources) Start: 03-10-2021 take 1 capsule by mouth once daily Multivitamin Active 1 CAP PO DAILY March 10, 2021 3:00pm Start: 03-10-2021 take 1 capsule by mo [facility] once daily Multivitamin Active 1 CAP PO DAILY March 09, 2021 11:00pm Start: 03-10-2021 take 1 capsule by mo [facility] once daily Multivitamin Active 1 CAP PO DAILY March 10, 2021 12:00am multivitamin tablet (17 sources) take 1 tablet by [facility] once daily multivitamin tablet Take 1 tablet by mouth once daily. Active take 1 tablet by mouth once bharat y multivitamin tablet Take 1 tablet by mouth once daily. 0 Active Comment on above: Take 1 tablet by radhames once daily. oxymetazoline hydrochloride 0.5 mg/ml nasal spray (1 source) Start: 5 Oxymetazoline (Nasal Decongestant (Oxymetazl)) 0.05 % spray,non-aerosol Active 3 NMA INTRANASAL Q12H October 14, 2024 1:00am pantoprazole 20 mg delayed release oral tablet (1 source) Proton Pump Inhibitor Start: 5 take 1 tablet by mouth once daily Pantoprazole 20 mg tablet,delayed release (DR/EC) Active 20 mg PO DAILY October 14, 2024 1:00am polyethylene glycol 3350 26006 mg powder for oral solution (20 sources) Osmotic Laxative Start: Polyethylene Glycol 3350 (Miralax) 17 gram Powder In Packet Active 17 g PO EVERY OTHER DAY March 10, 2021 12:00am predniSONE 50 mg oral tablet (1 source) Start: 5 take 1 tablet by mouth once daily Prednisone 50 mg tablet Active 50 mg PO DAILY 5 October 14, 2024 1:00am pyridoxine (20 sources) Start: take 200 mg by mouth once daily Pyridoxine (Vitamin B6) Active 200 MG PO DAILY March 10, 2021 3:00pm Start: 03-10-2021 End: 10-14-2024 take 1 tablet by mouth once daily Pyridoxine (Vitamin B6) 200 mg Tablet Discontinued 200 mg PO DAILY March 10, 2021 12:00am October 14, 2024 8:29am Start: 03-10-2021 take 200 mg by mouth once bharat y Pyridoxine (Vitamin B6) Active 200 MG PO DAILY March 09, 2021 11:00pm Start: 03-10-2021 take 200 mg by mouth once bharat y Pyridoxine (Vitamin B6) Active 200 MG PO DAILY March 10, 2021 12:00am Salt Moisturizing Solution N o1 (20 sources) Start: 03-10-2021 Salt Moisturiz ing Solution No1 Active 1 SPRAY INTRANASAL DAILY March 10, 2021 3:00pm Start: 03-10-2021 Salt Moisturiz ing Solution No1 Active 1 SPRAY INTRANASAL DAILY March 09, 2021 11:00pm Start: 03-10-2021 Salt Moisturiz ing Solution No1 Active 1 SPRAY INTRANASAL DAILY March 10, 2021 12:00am Salt Moisturizing Solution No1 Mist (1 source) Start: 03-10-2021 Salt Moisturizing Solution No1 Mist Active 1 NMA INTRANASAL DAILY as needed for dry nares March 10, 2021 12:00am sennosides, mcfp 8.6 mg oral tablet (17 sources) take 1 tablet by mouth once daily as needed for constipation senna (SENOKOT) 8.6 mg tab Take 8.6 mg by mouth once daily as needed (Constipation). Active Comment on above: Take 8.6 mg by mouth once daily as needed (Constipation). sodium chloride 0.111 meq/ml nasal spray (17 sources) sodium chloride (AYR, OCEAN) 0.65 % nasal spray Use 1 [place] in the nose every 2 hours as needed. Active Comment on above: Use 1 [place] in the n ose every 2 hours as needed. sulfamethoxazole 800 mg / trimethoprim 160 mg oral tablet (1 source) Dihydrofolate Reductase Inhibitor Antibacterial, Sulfonamide Antimicrobial Start: 07-02-2022 End: 07-09-2022 take 1 tablet by mouth twice daily sulfamethoxazole -trimethoprim (BACTRIM DS) 800-160 mg per tablet Take 1 tablet by mouth twice daily for 7 days. 14 tablet 0 07/02/2022 07/09/2022 Active Comment on above: Take 1 tablet by radhames twice daily for 7 days. tiZANidine 2 mg oral tablet (17 sources) Central alpha-2 Adrenergic Agonist tiZANidine (ZANAFLEX) 2 mg tablet Take 2 mg by mouth. Active Comment on above: Take 2 mg by mouth. trolamine salicylate (20 sources) Start: 03-10-2021 Aspercreme (lidocaine) Active 4 % TD NEEDED March 10, 2021 2:56pm Start: 03-10-2021 Aspercreme (li docaine) Active 4 % TD NEEDED as needed for Pain March 10, 2021 12:00am Start: 03-10-2021 Aspercreme (li docaine) Active 4 % TD NEEDED March 09, 2021 11:00pm Start: 03-10-2021 Aspercreme (li docaine) Active 4 % TD NEEDED March 10, 2021 12:00am vitamin B12 (20 sources) Vitamin B12 Start: 10-14-2024 take 1 tablet by mouth once daily Cyanocobalamin (Vitamin B-12) 500 mcg tablet Active 500 ug PO DAILY October 14, 2024 1:00am Start: 03-10-2021 End: 10-14-2024 take 1 capsule by mouth once daily Cyanocobalamin (Vitamin B-12) 1,000 mcg Capsule Discontinued 1000 ug PO DAILY March 10, 2021 12:00am October 14, 2024 8:28am take 1 tablet by [facility] once daily cyanocobalamin (VITAMIN B-12) 1,000 mcg tab Take 1,000 mcg by mouth once daily. Active Comment on above: Take 1,000 mcg by mo [facility] once daily. vitamin b6 100 mg oral tablet (1 source) Start: 10-14-2024 Pyridoxine (Vitamin B6) 100 mg tablet Active 200 mg PO DAILY October 14, 2024 1:00am vitamin e 268 mg oral capsule (20 sources) Start: 03-10-2021 Vitamin E, dl, acetate, (VITAMIN E) 400 unit capsule Take by mouth. 03/10/2021 Active Start: 03-10-2021 Vitamin E, dl, acetate, (VITAMIN E) 400 unit capsule Take by mouth. 0 03/10/2021 Active Start: 03-10-2021 take 1 capsule by mo [facility] once daily Vitamin E 400 unit Capsule Active 400 U PO DAILY March 10, 2021 12:00am Comment on above: Take by mouth. Zinc (20 sources) Start: 03-10-2021 take 50 mg by mouth once daily Zinc Active 50 MG PO DAILY March 10, 2021 3:00pm Start: 03-10-2021 take 1 capsule by mouth once d aily Zinc 50 mg Capsule Active 50 mg PO DAILY March 10, 2021 12:00am Start: 03-10-2021 take 50 mg by mouth once daily Zinc Active 50 MG PO DAILY March 09, 2021 11:00pm Start: 03-10-2021 take 50 mg by mouth once daily Zinc Active 50 MG PO DAILY March 10, 2021 12:00am zinc oxide 0.2 mg/mg topical ointment (20 sources) Start: 03-10-2021 zinc oxide 20 % ointment Apply to affected area. 03/10/2021 Active Start: 03-10-2021 Zinc Oxide 20 % Ointment Active 1 NMA TOPICAL THREE TIMES A DAY March 10, 2021 12:00am Comment on above: Apply to affected ar ea. Completed/Discontinued Medications Medication Drug Class(es) Dates Sig (Normalized) Sig (Original) bisacodyl 10 mg rectal suppository (20 sources) Stimulant Laxative Start: 03-10-2021 End: 10-14-2024 Bisacodyl 10 mg Suppository Discontinued 10 mg RC DAILY as needed for Constipation March 10, 2021 12:00am October 14, 2024 8:39am dexamethasone 2 mg oral tablet (13 sources) Corticosteroid Start: 09-09-2022 End: 10-14-2024 take 3 tablets by mouth once daily Dexamethasone 2 mg tablet Discontinued 6 mg PO DAILY 16 06September 09, 2022 1:00am October 14, 2024 8:39am Start: 09-09-2022 take 6 mg by mouth once daily Dexamethasone Active 6 MG PO DAILY 16 06September 09, 2022 1:00am docusate sodium 50 mg / sennosides, mcfp 8.6 mg oral tablet (20 sources) Start: 03-10-2021 End: 10-14-2024 Sennosides-Docusate Sodium (Senexon-S) 8.6-50 mg Tablet Discontinued 1 NMA PO DAILY as needed for Constipation March 10, 2021 12:00am October 14, 2024 8:37am ketoconazole 20 mg/ml medicated shampoo (20 sources) Azole Antifungal Start: 03-10-2021 End: 10-14-2024 Ketoconazole 2 % Shampoo Discontinued 1 NMA TOPICAL Q14D March 10, 2021 12:00am October 14, 2024 8:38am mineral oil 1000 mg/ml enema (20 sources) Start: 03-10-2021 End: 10-14-2024 Mineral Oil Enema Discontinued 118 mL RC DAILY as needed for Constipation March 10, 2021 12:00am October 14, 2024 8:38am Start: 03-10-2021 Mineral Oil Ac tive 118 ML RC DAILY March 10, 2021 12:00am montelukast 10 mg oral tablet (14 sources) Leukotriene Receptor Antagonist Start: 09-08-2022 End: 10-14-2024 take 1 tablet by mouth at bedtime Montelukast (Singulair) 10 mg Tablet Discontinued 10 mg PO AT BEDTIME September 08, 2022 1:00am October 14, 2024 8:38am omeprazole 20 mg delayed release oral capsule (20 sources) Proton Pump Inhibitor Start: 09-08-2022 End: 10-14-2024 take 1 capsule by mouth once daily Omeprazole 20 mg Capsule,Delayed Release(Dr/Ec) Discontinued 20 mg PO DAILY September 08, 2022 1:00am October 14, 2024 8:38am take 1 capsule by mouth once david ly omeprazole (PRILOSEC) 20 mg capsule Take 20 mg by mouth once daily. 0 Active Comment on above: Take 20 mg by mouth once daily. ondansetron 4 mg oral tablet (20 sources) Serotonin-3 Receptor Antagonist Start: End: take 1 tablet by mouth every eight hours as needed for nausea Ondansetron Hcl (Zofran) 4 mg Tablet Discontinued 4 mg PO Q8H as needed for Nausea March 10, 2021 12:00am October 14, 2024 8:38am Comment on above: Take by mouth. 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] Chronic Cardiac dysrhythmias (2 sources) Unspecified atrial fibrillation; Translations: [Unspecified atrial fibrillation] Onset: 10-07-2018 Chronic Chronic obstructive pulmonary disease and bronchiectasis (18 sources) Chronic obstructive lung disease; Translations: [Chronic obstructive pulmonary disease, unspecified] Chronic Comment on above: hx of/resident [place] rodriguez per care home note Coronary atherosclerosis and other heart disease (2 sources) Angina pectoris, unspecified; Translations: [Angina pectoris, unspecified] Onset: 10-07-2018 Chronic Deficiency and other anemia (2 sources) Iron deficiency anemia, unspecified; Translations: [Iron deficiency anemia, unspecified] Onset: 10-07-2018 Episodic Deficiency and other anemia (1 source) Iron deficiency anemia; Translations: [Iron deficiency anemia, unspecified] Episodic Disorders of lipid metabolism (5 sources) Hyperlipidemia, unspecified; Translations: [Mixed hyperlipidemia] Onset: 10-07-2018 Chronic Esophageal disorders (2 sources) Gastro-esophageal reflux disease without esophagitis; Translations: [Gastro-esophageal reflux disease without esophagitis] Onset: 10-07-2018 Chronic Essential hypertension (4 sources) Essential (primary) hypertension; Translations: [Essential (primary) hypertension] Onset: 10-07-2018 Chronic Genitourinary symptoms and ill-defined conditions (20 sources) Retention of urine; Translations: [Retention of urine, unspecified] Onset: 03-04-2018 03-04-2018 Episodic Mood disorders (18 sources) Depressive disorder; Translations: [Depression] Chronic Multiple sclerosis (20 sources) Multiple sclerosis; Translations: [Multiple sclerosis] Onset: 01-02-2014 01-02-2014 Chronic Comment on above: since 2011/brigitte gant Other aftercare (2 sources) 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; Translations: [[facility] (current) use of aspirin] Onset: 10-07-2018 Episodic Other aftercare (2 sources) [facility] (current) use of non-steroidal anti-inflammatories (NSAID); Translations: [[facility] (current) use of non-steroidal non-inflam (NSAID)] Onset: 10-07-2018 Episodic Other circulatory disease (14 sources) H/O: atrial fibrillation; Translations: [Personal history of other diseases of the circulatory system] 09-08-2022 Episodic Comment on above: hx of noted from [facility] papers Other circulatory disease (4 sources) Personal history of other diseases of the circulatory system; Translations: [Personal history of other diseases of circulatory system] Episodic Other diseases of bladder and urethra (2 sources) Flaccid neuropathic bladder, not elsewhere classified; 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, not elsewhere classified] Onset: 10-07-2018 Chronic Other diseases of bladder and urethra (20 sources) Neurogenic bladder; Translations: [Neuromuscular dysfunction of bladder, unspecified] 03-25-2021 Chronic Other female genital disorders (4 sources) Tubo-ovarian mass; Translations: [Other noninflammatory disorders of ovary, fallopian tube and broad ligament] Episodic Other gastrointestinal disorders (1 source) Pelvic mass; Translations: [Intra-abdominal and pelvic swelling, mass and lump, unspecified site] Episodic Other lower respiratory disease (14 sources) Hypoxia; Translations: [Hypoxemia] 09-18-2022 Episodic Other lower respiratory disease (4 sources) Hypoxemia; Translations: [Hypoxemia] Episodic Other nervous system disorders (2 sources) Other chronic pain; Translations: [Other chronic pain] Onset: 10-07-2018 Chronic Paralysis (3 sources) Functional quadriplegia; Translations: [Functional quadriplegia] Chronic Residual codes; unclassified (2 sources) Pain, unspecified; Translations: [Pain, unspecified] Onset: 10-07-2018 Spondylosis; intervertebral disc disorders; other back problems (17 sources) Inflammation of sacroiliac joint; Translations: [Sacroiliitis, not elsewhere classified] Onset: 11-20-2002 01-14-2004 Chronic Unclassified (1 source) Unknown / UNK(Unknown) Onset: 03-04-2018 Urinary tract infections (20 sources) Acute cystitis without hematuria; Translations: [Urinary tract infectious disease] Onset: 10-07-2018 03-25-2021 Episodic Viral infection (19 sources) Disease caused by 2019-nCoV; Translations: [COVID-19] Episodic Viral infection (1 source) COVID-19; Translations: [COVID-19] Onset: 11-06-2024 Past or Other Problems Problem Classification Problem Date Documented Da te Episodic/Chronic Other acquired deformities (17 sources) Somatic dysfunction of lower limb; Translations: [Biomechanical lesion, unspecified] Onset: 12-07-2002 01-14-2004 Episodic Other acquired deformities (17 sources) Somatic dysfunction of pelvic region; Translations: [Biomechanical lesion, unspecified] Onset: 12-07-2002 01-14-2004 Episodic Other acquired deformities (17 sources) Somatic dysfunction of sacral region; Translations: [Biomechanical lesion, unspecified] Onset: 12-07-2002 01-14-2004 Episodic Other acquired deformities (17 sources) Somatic dysfunction of lumbar region; Translations: [Biomechanical lesion, unspecified] Onset: 12-07-2002 01-14-2004 Episodic Other acquired deformities (17 sources) Somatic dysfunction of thoracic region; Translations: [Biomechanical lesion, unspecified] Onset: 06-01-2003 01-14-2004 Episodic Other acquired deformities (17 sources) Somatic dysfunction of upper limb; Translations: [Biomechanical lesion, unspecified] Onset: 06-29-2003 01-14-2004 Episodic Other acquired deformities (17 sources) Cervical somatic dysfunction; Translations: [Other biomechanical lesions of cervical region] Onset: 11-23-2003 01-14-2004 Episodic Other connective tissue disease (17 sources) Muscle pain; Translations: [Myalgia and myositis, unspecified] Onset: 11-20-2002 01-14-2004 Episodic Other gastrointestinal disorders (1 source) Dysphagia, unspecified; Translations: [Dysphagia, unspecified] Onset: 03-06-2024 Episodic Unclassified (1 source) Retention of urine, unspecified Onset: 03-04-2018 Results Test Name Value Interpretation Reference Range Facility CBC-Complete Blood Cnt No Di ffon 02-26-2025 Erythrocyte distribution width (RBC) [Ratio] 14.3 % Normal 11.6-14.6 [facility] Comment on above: Order Comment: 204.1 Performed By: #### L 100.0500, L500.4050 ####[facility] [id number] [place], [address] Hematocrit (Bld) [Volume fraction] 34.7 % Low 37-47 [facility] Comment on above: Order Comment: 204.1 Performed By: #### L 100.0500, L500.4050 ####[facility] [id number] [place], [address] Hemoglobin (Bld) [Mass/Vol] 11.0 g/dL Low 12.0-15.0 [facility] Comment on above: Order Comment: 204.1 Performed By: #### L 100.0500, L500.4050 ####[facility] [id number] [place], [address] MCH (RBC) [Entitic mass] 29.3 pg Normal 27.0-32.0 [facility] Comment on above: Order Comment: 204.1 Performed By: #### L 100.0500, L500.4050 ####[facility] [id number] [place], [address] MCHC (RBC) [Mass/Vol] 31.7 g/dL Low 32-36 [facility] Comment on above: Order Comment: 204.1 Performed By: #### L 100.0500, L500.4050 ####[facility] [id number] [place], [address] MCV (RBC) [Entitic vol] 92.3 fL Normal 81-99 [facility] Comment on above: Order Comment: 204.1 Performed By: #### L 100.0500, L500.4050 ####[facility] [id number] [place], [address] Platelet mean volume (Bld) [Entitic vol] 10.6 fL Normal 6.2-12.0 [facility] Comment on above: Order Comment: 204.1 Performed By: #### L 100.0500, L500.4050 ####[facility] [id number] [place], [address] Platelets (Bld) [#/Vol] 231 10*3/uL Normal 150-450 [facility] Comment on above: Order Comment: 204.1 Performed By: #### L 100.0500, L500.4050 ####[facility] [id number] [place], [address] RBC (Bld) [#/Vol] 3.76 10*6/uL Low 4.2-5.4 [facility] Comment on above: Order Comment: 204.1 Performed By: #### L 100.0500, L500.4050 ####[facility] [address] [place], [address] RDW SD 48.4 fl High 35.1-43.9 [facility] Comment on above: Order Comment: 204.1 Performed By: #### L 100.0500, L500.4050 ####[facility] [id number] [place], [address] WBC (Bld) [#/Vol] 6.5 10*3/uL Normal 4.4-11.0 [facility] Comment on above: Order Comment: 204.1 Performed By: #### L 100.0500, L500.4050 ####[facility] [address] [place], [address] Comprehensive Metabolic Prof [facility] 02-26-2025 Albumin [Mass/Vol] 3.6 g/dL Normal 3.4-4.8 [facility] Comment on above: Order Comment: 204.1 Performed By: #### L 100.0500, L500.4050 ####[facility] [id number] [place], [address] Albumin/Globulin [Mass ratio] 1.6 {ratio} Normal 0.9-2.4 [facility] Comment on above: Order Comment: 204.1 Performed By: #### L 100.0500, L500.4050 ####[facility] [id number] [place], [address] ALK PHOS 81 U/L Normal 35-104 [facility] Comment on above: Order Comment: 204.1 Performed By: #### L 100.0500, L500.4050 ####[facility] [id number] [place], [address] ALT [Catalytic activity/Vol] 29 U/L Normal <=34 [facility] Comment on above: Order Comment: 204.1 Performed By: #### L 100.0500, L500.4050 ####[facility] [id number] [place], [address] AST [Catalytic activity/Vol] 27 U/L Normal <=31 [facility] Comment on above: Order Comment: 204.1 Performed By: #### L 100.0500, L500.4050 ####[facility] [id number] [place], [address] Bilirubin [Mass/Vol] 0.22 mg/dL Normal 0.00-1.[address] [facility] Comment on above: Order Comment: 204.1 Performed By: #### L 100.0500, L500.4050 ####[facility] [id number] [place], [address] BUN/CRE 24.2 RATIO High 10-20 [facility] Comment on above: Order Comment: 204.1 Performed By: #### L 100.0500, L500.4050 ####[facility] [id number] [place], [address] Calcium [Mass/Vol] 9.1 mg/dL Normal 7.6-11.0 [facility] Comment on above: Order Comment: 204.1 Performed By: #### L 100.0500, L500.4050 ####[facility] [id number] [place], [address] Chloride [Moles/Vol] 111 mmol/L High 98-[address] [facility] Comment on above: Order Comment: 204.1 Performed By: #### L 100.0500, L500.4050 ####[facility] [address] [place], [address] CO2 [Moles/Vol] 23.0 mmol/L Normal 21.0-32.0 [facility] Comment on above: Order Comment: 204.1 Performed By: #### L 100.0500, L500.4050 ####[facility] [id number] [place], [address] Creatinine [Mass/Vol] 0.60 mg/dL Low 0.70-1.20 [facility] Comment on above: Order Comment: 204.1 Performed By: #### L 100.0500, L500.4050 ####[facility] [id number] [place], [address] GAP 11 Normal 5-15 [facility] Comment on above: Order Comment: 204.1 Performed By: #### L 100.0500, L500.4050 ####[facility] [id number] [place], [address] GFR/1.73 sq M.predicted among non-blacks MDRD (S/P/Bld) [Vol rate/Area] 96 mL/min/{1.73_m2} Normal >60 [facility] Comment on above: Order Comment: 204.1 Result Comment: mL/m in/1.73m2 CKD-EPI Creatinine Equation (2020) Performed By: #### L 100.0500, L500.4050 ####[facility] [id number] [place], [address] Globulin (S) [Mass/Vol] 2.3 g/dL Normal 2.2-4.2 [facility] Comment on above: Order Comment: 204.1 Performed By: #### L 100.0500, L500.4050 ####[facility] [address] [place], [address] Glucose [Mass/Vol] 118 mg/dL High 70-99 [facility] Comment on above: Order Comment: 204.1 Performed By: #### L 100.0500, L500.4050 ####[facility] [address] [place], [address] Potassium [Moles/Vol] 4.1 mmol/L Normal 3.3-5.1 [facility] Comment on above: Order Comment: 204.1 Performed By: #### L 100.0500, L500.4050 ####[facility] [address] [place], [address] Sodium [Moles/Vol] 145 mmol/L Normal 133-145 [facility] Comment on above: Order Comment: 204.1 Performed By: #### L 100.0500, L500.4050 ####[facility] [id number] [place], [address] T PROT 5.9 g/dL Normal 5.9-8.4 [facility] Comment on above: Order Comment: 204.1 Performed By: #### L 100.0500, L500.4050 ####[facility] [id number] [place], [address] Urea nitrogen [Mass/Vol] 15 mg/dL Normal 4-19 [facility] Comment on above: Order Comment: 204.1 Performed By: #### L 100.0500, L500.4050 ####[facility] [id number] 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 Rojo is a 69 year old female who presents to the office regarding chronic SPT. Patient was last seen in office on 01/27/2024 for the above issue. At this time, patient was doing well with SPT. Catheter last changed: 01/27/2025 Catheter is being changed by SNF every 20 days. SPT is flushed daily. 16 fr 30 cc balloon. Fever or chills: Denies Hematuria: Denies Denies significant sediment in urine. She enjoys coffee but gets nervous about the color of her urine with it. Review of Systems Constitutional: Negative for chills and fever. Genitourinary: See HPI Past Medical History: PAST MEDICAL HISTORY Diagnosis Date Anemia Atrial fibrillation (HCC) Functional quadriplegia (HCC) Hyperlipidemia Insomnia Lack of coordination Major depressive disorder Multiple sclerosis (HCC) Muscle weakness (generalized) Neurogenic bladder Pulmonary disease Retention of urine, unspecified 03/04/2018 Past Surgical History: PAST SURGICAL HISTORY Procedure Laterality Date PAST SURGICAL HISTORY OF nasal septum repair PAST SURGICAL HISTORY OF suprapubic catheter placement PAST SURGICAL HISTORY OF 2020 remove of bladder stone REMOVAL OF OVARY/TUBE(S) 05/11/2022 w/ removal of associated bilateral adnexal masses and sigmoid adhesion biopsy REPAIR INCISIONAL HERNIA,REDUCIBLE 1991 per patient left groin area Social History: Social History Tobacco Use Smoking status: Never Smokeless tobacco: Never Vaping Use Vaping status: Never Used Substance Use Topics Alcohol use: No Drug use: No Medications: Prior to Admission medications : Medication menthol/camphor (BIOFREEZE TOPICAL), Sig Apply to affected area., Start Date , End Date , Taking? , Authorizing Provider Provider, [facility] Medication ibuprofen (MOTRIN) 600 mg tablet, Sig Take 1 tablet by mouth every 6 hours., Start Date 05/12/22, End Date , Taking? , Authorizing Provider Vero Bryant, DO Medication acetaminophen (TYLENOL) 325 mg tablet, Sig Take 2 tablets by mouth every 6 hours., Start Date 05/12/22, End Date , Taking? , Authorizing Provider Vero Bryant, DO Medication acetaminophen (TYLENOL) 500 mg tablet, Sig Take 1,000 mg by mouth., Start Date 03/10/21, End Date , Taking? , Authorizing Provider Provider, [facility] Medication atorvastatin (LIPITOR) 40 mg tablet, Sig Take 40 mg by mouth., Start Date 03/10/21, End Date , Taking? , Authorizing Provider Provider, [facility] Medication calcium carbonate 600 mg-cholecalciferol 400 units 600 mg-10 mcg (400 unit) tab, Sig Take by mouth., Start Date 03/10/21, End Date , Taking? , Authorizing Provider Provider, [facility] Medication famotidine (PEPCID) 20 mg tablet, Sig Take 20 mg by mouth., Start Date 03/10/21, End Date , Taking? , Authorizing Provider Provider, [facility] Medication ondansetron (ZOFRAN) 4 mg tablet, Sig Take by mouth., Start Date 03/10/21, End Date , Taking? , Authorizing Provider Provider, [facility] Medication Vitamin E, dl, acetate, (VITAMIN E) 400 unit capsule, Sig Take by mouth., Start Date 03/10/21, End Date , Taking? , Authorizing Provider Provider, [facility] Medication zinc oxide 20 % ointment, Sig Apply to affected area., Start Date 03/10/21, End Date , Taking? , Authorizing Provider Provider, [facility] Medication carboxymethylcellulose sodium (REFRESH OPHTHALMIC), Sig Use in eyes., Start Date , End Date , Taking? , Authorizing Provider Provider, [facility] Medication milk thistle/NAC/dandel/turmer (LIVER COMPLEX ORAL), Sig Take by mouth., Start Date , End Date , Taking? , Authorizing Provider Provider, [facility] Medication tiZANidine (ZANAFLEX) 2 mg tablet, Sig Take 2 mg by mouth., Start Date , End Date , Taking? , Authorizing Provider Provider, [facility] Medication multivitamin tablet, Sig Take 1 tablet by mouth once daily., Start Date , End Date , Taking? , Authorizing Provider Provider, [facility] Medication aspirin, enteric coated (ASPIRIN, ENTERIC COATED) 81 mg EC tablet, Sig Take 81 mg by mouth once daily., Start Date , End Date , Taking? , Authorizing Provider Provider, [facility] Medication loratadine (CLARITIN) 10 mg tablet, Sig Take 10 mg by mouth once daily., Start Date , End Date , Taking? , Authorizing Provider Provider, [facility] Medication cyanocobalamin (VITAMIN B-12) 1, (more content not included)... Normal [facility] Absolute lymphocyte countOrd ered By: Twan Guerrero on 01-16-2025 Lymphocytes Auto (Unsp spec) [#/Vol] 2.76 10*3/uL 0.83-4.51 [facility] Absolute neutrophil countOrd ered By: Twan Guerrero on 01-16-2025 Neutrophils (Bld) [#/Vol] 3.7 10*3/uL 2.0-7.7 [facility] Automated lymphocyte count a s percentage of total leukocytesOrdered By: Twan Guerrero on 01-16-2025 Lymphocytes/100 WBC Auto (Unsp spec) 37.0 % 19-41 [facility] Basophil percentageOrdered B y: Twan Guerrero on 01-16-2025 Basophils/100 WBC (Bld) 0.7 % 0-1 [facility] CBC W/Diff, Automatedon 12-20 Absolute Lymph 2.76 X10 3/uL Normal 0.83-4.51 [facility] Comment on above: Order Comment: 204.1 Performed By: #### L 100.0100, L500.4100 ####[facility] [id number] [place], [address] Absolute Neut 3.7 X10 3/uL Normal 2.0-7.7 [facility] Comment on above: Order Comment: 204.1 Performed By: #### L 100.0100, L500.4100 ####[facility] [id number] [place], [address] Basophils/100 WBC (Bld) 0.7 % Normal 0-1 [facility] Comment on above: Order Comment: 204.1 Performed By: #### L 100.0100, L500.4100 ####[facility] [id number] [place], [address] Eosinophils/100 WBC (Bld) 2.0 % Normal 0-5 [facility] Comment on above: Order Comment: 204.1 Performed By: #### L 100.0100, L500.4100 ####[facility] [id number] [place], [address] Erythrocyte distribution width (RBC) [Ratio] 14.9 % High 11.6-14.6 [facility] Comment on above: Order Comment: 204.1 Performed By: #### L 100.0100, L500.4100 ####[facility] [id number] [place], [address] Hematocrit (Bld) [Volume fraction] 36.4 % Low 37-47 [facility] Comment on above: Order Comment: 204.1 Performed By: #### L 100.0100, L500.4100 ####[facility] [id number] [place], [address] Hemoglobin (Bld) [Mass/Vol] 11.4 g/dL Low 12.0-15.0 [facility] Comment on above: Order Comment: 204.1 Performed By: #### L 100.0100, L500.4100 ####[facility] [id number] [place], [address] IG% 0.400 Normal 0.0-0.9 [facility] Comment on above: Order Comment: 204.1 Result Comment: IG% - Immature Granulocytes (promyelocytes, myelocytes and metamyelocytes) > 1% indicates that a LEFT SHIFT is Present. Performed By: #### L 100.0100, L500.4100 ####[facility] [id number] [place], [address] Lymphocytes/100 WBC (Bld) 37.0 % Normal 19-41 [facility] Comment on above: Order Comment: 204.1 Performed By: #### L 100.0100, L500.4100 ####[facility] [address] [place], [address] MCH (RBC) [Entitic mass] 29.2 pg Normal 27.0-32.0 [facility] Comment on above: Order Comment: 204.1 Performed By: #### L 100.0100, L500.4100 ####[facility] [address] [place], [address] MCHC (RBC) [Mass/Vol] 31.3 g/dL Low 32-36 [facility] Comment on above: Order Comment: 204.1 Performed By: #### L 100.0100, L500.4100 ####[facility] [id number] [place], [address] MCV (RBC) [Entitic vol] 93.1 fL Normal 81-99 [facility] Comment on above: Order Comment: 204.1 Performed By: #### L 100.0100, L500.4100 ####[facility] [id number] [place], [address] Monocytes/100 WBC (Bld) 9.9 % Normal 0-10 [facility] Comment on above: Order Comment: 204.1 Performed By: #### L 100.0100, L500.4100 ####[facility] [address] [place], [address] Neutrophils/100 WBC (Bld) 50.0 % Normal 47-70 [facility] Comment on above: Order Comment: 204.1 Performed By: #### L 100.0100, L500.4100 ####[facility] [address] [place], [address] Nucleated RBC (Bld) [#/Vol] 0 10*3/uL Normal 0-5 [facility] Comment on above: Order Comment: 204.1 Performed By: #### L 100.0100, L500.4100 ####[facility] [address] [place], [address] Platelet mean volume (Bld) [Entitic vol] 10.8 fL Normal 6.2-12.0 [facility] Comment on above: Order Comment: 204.1 Performed By: #### L 100.0100, L500.4100 ####[facility] [address] [place], [address] Platelets (Bld) [#/Vol] 247 10*3/uL Normal 150-450 [facility] Comment on above: Order Comment: 204.1 Performed By: #### L 100.0100, L500.4100 ####[facility] [address] [place], [address] RBC (Bld) [#/Vol] 3.91 10*6/uL Low 4.2-5.4 [facility] Comment on above: Order Comment: 204.1 Performed By: #### L 100.0100, L500.4100 ####[facility] [address] [place], [address] RDW SD 50.8 fl High 35.1-43.9 [facility] Comment on above: Order Comment: 204.1 Performed By: #### L 100.0100, L500.4100 ####[facility] [id number] [place], [address] WBC (Bld) [#/Vol] 7.5 10*3/uL Normal 4.4-11.0 [facility] Comment on above: Order Comment: 204.1 Performed By: #### L 100.0100, L500.4100 ####[facility] [id number] [place], [address] Calculated very low density lipoprotein (VLDL) cholesterol measurementOrdered By: Twan Guerrero on 01-16-2025 Calculated very low density lipoprotein (VLDL) cholesterol measurement 41 mg/dL High 5-40 [facility] Eosinophil percentageOrdered By: Twan Guerrero on 01-16-2025 Eosinophils/100 WBC (Bld) 2.0 % 0-5 [facility] Erythrocyte distribution wid th ratioOrdered By: Twan Guerrero on 01-16-2025 Erythrocyte distribution width (RBC) [Ratio] 14.9 % High 11.6-14.6 [facility] Erythrocyte distribution wid th standard deviationOrdered By: Twan Guerrero on 01-16-2025 Erythrocyte distribution width (RBC) [Ratio] 50.8 fl High 35.1-43.9 [facility] Hematocrit Auto (Bld) [Volum e fraction]Ordered By: Twan Guerrero on 01-16-2025 Hematocrit (Bld) [Volume fraction] 36.4 % Low 37-47 [facility] Hemoglobin measurementOrdere d By: Twan Guerrero on 01-16-2025 Hemoglobin (Bld) [Mass/Vol] 11.4 g/dL Low 12.0-15.0 [facility] Immature granulocytes/100 WB C Auto (Bld)Ordered By: Twan Guerrero on 01-16-2025 Immature granulocytes/100 WBC (Bld) 0.400 % 0.0-0.9 [facility] Comment on above: IG% - Immature Granu locytes (promyelocytes, myelocytes and metamyelocytes) > 1% indicates that a LEFT SHIFT is Present. LDL calc ser/plasOrdered By: Twan Guerrero on 01-16-2025 Cholesterol in LDL [Mass/Vol] 56 mg/dL [facility] Comment on above: Llyecnmvhb=106-373 m g/dL & Higher Wyqc=249 mg/dL or greater Lipid Profileon 01-16-2025 CHOL:HDL 4.13 Normal [facility] Comment on above: Order Comment: 204.1 Performed By: #### L 100.0100, L500.4100 ####[facility] [id number] [place], [place], [address] Cholesterol [Mass/Vol] 128 mg/dL Normal <=200 [facility] Comment on above: Order Comment: 204.1 Result Comment: Chol esterol level, Desirable <200 mg/dL Borderline high cholesterol 200-239 mg/dL High cholesterol >=240 mg/dL Recommendations of the NCEP Adult Treatment Panel for the following risk-cutoff thresholds for the [place] population. Performed By: #### L 100.0100, L500.4100 ####[facility] [id number] [place], [address] Cholesterol in HDL [Mass/Vol] 31 mg/dL Low [facility] Comment on above: Order Comment: 204.1 Result Comment: Bridgette onal Cholesterol Education Program (NCEP) guidelines: <40 mg/dL: Low HDL-cholesterol (major risk factor for CHD) >= 60 mg/dL: High HDL-cholesterol (negative risk factor for CHD) HDL-cholesterol is affected by a number of factors, e.g. smoking, exercise, hormones, sex and age. Performed By: #### L 100.0100, L500.4100 ####[facility] [id number] [place], [address] Cholesterol in LDL [Mass/Vol] 56 mg/dL Normal [facility] Comment on above: Order Comment: 204.1 Result Comment: Bord nwmuty=287-011 mg/dL Higher Lvbr=250 mg/dL or greater Performed By: #### L 100.0100, L500.4100 ####[facility] [id number] [place], [address] Cholesterol in VLDL [Mass/Vol] 41 mg/dL High 5-40 [facility] Comment on above: Order Comment: 204.1 Performed By: #### L 100.0100, L500.4100 ####[facility] [id number] [place], [address] Triglyceride [Mass/Vol] 204 mg/dL High [facility] Comment on above: Order Comment: 204.1 Result Comment: The drugs N-Acetylcysteine and Metamizole may falsely depress this assay. Normal range: <150 mg/dL Borderline High: 150-199 mg/dL High: 200-499 mg/dL Very High: >500 mg/dL Performed By: #### L 100.0100, L500.4100 ####[facility] [id number] [place], [address] MCV (mean corpuscular volume ) determinationOrdered By: Twan Guerrero on 01-16-2025 MCV (RBC) [Entitic vol] 93.1 fL 81-99 [facility] Mean corpuscular hemoglobin (MCH) determinationOrdered By: Twan Guerrero on 01-16-2025 MCH (RBC) [Entitic mass] 29.2 pg 27.0-32.0 [facility] Mean corpuscular hemoglobin concentration (MCHC) determinationOrdered By: Twan Guerrero on 01-16-2025 MCHC (RBC) [Mass/Vol] 31.3 g/dL Low 32-36 [facility] Mean platelet volume determi nationOrdered By: Twan Guerrero on 01-16-2025 Platelet mean volume (Bld) [Entitic vol] 10.8 fL 6.2-12.0 [facility] Monocyte percentageOrdered B y: Twan Guerrero on 01-16-2025 Monocytes/100 WBC (Bld) 9.9 % 0-10 [facility] Neutrophil percentageOrdered By: Twan Guerrero on 01-16-2025 Neutrophils/100 WBC (Bld) 50.0 % 47-70 [facility] Nucleated red blood cell per centageOrdered By: Twan Guerrero on 01-16-2025 Nucleated RBC/100 WBC (Bld) [Ratio] 0 % 0-5 [facility] Platelet countOrdered By: Ervin on 01-16-2025 Platelets (Bld) [#/Vol] 247 10*3/uL 150-450 [facility] RBC Auto (Bld) [#/Vol]Ordere d By: Twan Guerrero on 01-16-2025 RBC (Bld) [#/Vol] 3.91 10*6/uL Low 4.2-5.4 [facility] Screening total cholesterol/ high density lipoprotein (HDL) cholesterol ratioOrdered By: Twan Guerrero on 01-16-2025 Cholesterol.total/Sushma sterol in HDL [Mass ratio] 4.13 {ratio} [facility] Serum or plasma cholesterol in HDL measurement (mass/volume)Ordered By: Twan Guerrero on 01-16-2025 Cholesterol in HDL [Mass/Vol] 31 mg/dL Low >40 [facility] Comment on above: National Cholesterol Education Program (NCEP) guidelines:<40 mg/dL: Low HDL-cholesterol (major risk factor for CHD)>= 60 mg/dL: High HDL-cholesterol (negative risk factor for CHD)HDL-cholesterol is affected by a number of factors, e.g. smoking, exercise, hormones, sex and age. Serum or plasma cholesterol measurement (mass/volume)Ordered By: Twan Guerrero on 01-16-2025 Cholesterol [Mass/Vol] 128 mg/dL <201 [facility] Comment on above: Cholesterol level, D esirable <200 mg/dLBorderline high cholesterol 200-239 mg/dLHigh cholesterol >=240 mg/dLRecommendations of the NCEP Adult Treatment Panel for the following risk-cutoff thresholds for the [place] population. Triglycerides measurementOrd ered By: Twan Guerrero on 01-16-2025 Triglyceride [Mass/Vol] 204 mg/dL High <199 [facility] Comment on above: The drugs N-Acetylcy steine and Metamizole may falsely depress this assay. Normal range: <150 mg/dLBorderline High: 150-199 mg/dLHigh: 200-499 mg/dLVery High: >500 mg/dL White blood cell (WBC) count Ordered By: Twan Guerrero on 01-16-2025 WBC (Bld) [#/Vol] 7.5 10*3/uL 4.4-11.0 [facility] Absolute lymphocyte countOrd ered By: Twan Guerrero on 10-24-2024 Lymphocytes Auto (Unsp spec) [#/Vol] 2.74 10*3/uL 0.83-4.51 [facility] Absolute neutrophil countOrd ered By: Twan Guerrero on 10-24-2024 Neutrophils (Bld) [#/Vol] 4.3 10*3/uL 2.0-7.7 [facility] Automated lymphocyte count a s percentage of total leukocytesOrdered By: Twan Guerrero on 10-24-2024 Lymphocytes/100 WBC Auto (Unsp spec) 34.2 % 19-41 [facility] Basophil percentageOrdered B y: Twan Guerrero on 10-24-2024 Basophils/100 WBC (Bld) 0.4 % 0-1 [facility] CBC W/Diff, Automatedon Absolute Lymph 2.74 X10 3/uL Normal 0.83-4.51 [facility] Comment on above: Order Comment: 204.1 Performed By: #### L 500.4100, L100.0100 #### [facility] Laboratory [address] [place], [address] Absolute Neut 4.3 X10 3/uL Normal 2.0-7.7 [facility] Comment on above: Order Comment: 204.1 Performed By: #### L 500.4100, L100.0100 #### [facility] Laboratory [address] [place], [address] Basophils/100 WBC (Bld) 0.4 % Normal 0-1 [facility] Comment on above: Order Comment: 204.1 Performed By: #### L 500.4100, L100.0100 #### [facility] Laboratory [address] [place], [address] Eosinophils/100 WBC (Bld) 2.0 % Normal 0-5 [facility] Comment on above: Order Comment: 204.1 Performed By: #### L 500.4100, L100.0100 #### [facility] Laboratory [address] [place], [address] Erythrocyte distribution width (RBC) [Ratio] 14.6 % Normal 11.6-14.6 [facility] Comment on above: Order Comment: 204.1 Performed By: #### L 500.4100, L100.0100 #### [facility] Laboratory [address] [place], [address] Hematocrit (Bld) [Volume fraction] 34.1 % Low 37-47 [facility] Comment on above: Order Comment: 204.1 Performed By: #### L 500.4100, L100.0100 #### [facility] Laboratory [address] [place], [address] Hemoglobin (Bld) [Mass/Vol] 10.7 g/dL Low 12.0-15.0 [facility] Comment on above: Order Comment: 204.1 Performed By: #### L 500.4100, L100.0100 #### [facility] Laboratory [address] [place], [address] IG% 0.900 Normal 0.0-0.9 [facility] Comment on above: Order Comment: 204.1 Result Comment: IG% - Immature Granulocytes (promyelocytes, myelocytes and metamyelocytes) > 1% indicates that a LEFT SHIFT is Present. Performed By: #### L 500.4100, L100.0100 #### [facility] Laboratory [address] [place], [address] Lymphocytes/100 WBC (Bld) 34.2 % Normal 19-41 [facility] Comment on above: Order Comment: 204.1 Performed By: #### L 500.4100, L100.0100 #### [facility] Laboratory [address] [place], [address] MCH (RBC) [Entitic mass] 29.0 pg Normal 27.0-32.0 [facility] Comment on above: Order Comment: 204.1 Performed By: #### L 500.4100, L100.0100 #### [facility] Laboratory [address] [place], [address] MCHC (RBC) [Mass/Vol] 31.4 g/dL Low 32-36 [facility] Comment on above: Order Comment: 204.1 Performed By: #### L 500.4100, L100.0100 #### [facility] Laboratory [address] [place], [address] MCV (RBC) [Entitic vol] 92.4 fL Normal 81-99 [facility] Comment on above: Order Comment: 204.1 Performed By: #### L 500.4100, L100.0100 #### [facility] Laboratory [address] [place], [address] Monocytes/100 WBC (Bld) 9.1 % Normal 0-10 [facility] Comment on above: Order Comment: 204.1 Performed By: #### L 500.4100, L100.0100 #### [facility] Laboratory [address] [place], [address] Neutrophils/100 WBC (Bld) 53.4 % Normal 47-70 [facility] Comment on above: Order Comment: 204.1 Performed By: #### L 500.4100, L100.0100 #### [facility] Laboratory [address] [place], [address] Nucleated RBC (Bld) [#/Vol] 0 10*3/uL Normal 0-5 [facility] Comment on above: Order Comment: 204.1 Performed By: #### L 500.4100, L100.0100 #### [facility] Laboratory [address] [place], [address] Platelet mean volume (Bld) [Entitic vol] 10.5 fL Normal 6.2-12.0 [facility] Comment on above: Order Comment: 204.1 Performed By: #### L 500.4100, L100.0100 #### [facility] Laboratory [address] [place], [address] Platelets (Bld) [#/Vol] 213 10*3/uL Normal 150-450 [facility] Comment on above: Order Comment: 204.1 Performed By: #### L 500.4100, L100.0100 #### [facility] Laboratory [address] [place], [address] RBC (Bld) [#/Vol] 3.69 10*6/uL Low 4.2-5.4 [facility] Comment on above: Order Comment: 204.1 Performed By: #### L 500.4100, L100.0100 #### [facility] Laboratory [address] [place], [address] RDW SD 49.4 fl High 35.1-43.9 [facility] Comment on above: Order Comment: 204.1 Performed By: #### L 500.4100, L100.0100 #### [facility] Laboratory [address] [place], [address] WBC (Bld) [#/Vol] 8.0 10*3/uL Normal 4.4-11.0 [facility] Comment on above: Order Comment: 204.1 Performed By: #### L 500.4100, L100.0100 #### [facility] Laboratory [address] [place], [address] Eosinophil percentageOrdered By: Twan Guerrero on 10-24-2024 Eosinophils/100 WBC (Bld) 2.0 % 0-5 [facility] Erythrocyte distribution wid th ratioOrdered By: Twan Guerrero on 10-24-2024 Erythrocyte distribution width (RBC) [Ratio] 14.6 % 11.6-14.6 [facility] Erythrocyte distribution wid th standard deviationOrdered By: Twan Guerrero on 10-24-2024 Erythrocyte distribution width (RBC) [Ratio] 49.4 fl High 35.1-43.9 [facility] Hematocrit Auto (Bld) [Volum e fraction]Ordered By: Twan Guerrero on 10-24-2024 Hematocrit (Bld) [Volume fraction] 34.1 % Low 37-47 [facility] Hemoglobin measurementOrdere d By: Twan Guerrero on 10-24-2024 Hemoglobin (Bld) [Mass/Vol] 10.7 g/dL Low 12.0-15.0 [facility] High density lipoprotein (HD L) measurementOrdered By: Twan Guerrero on 10-24-2024 Cholesterol in HDL [Mass/Vol] 32 mg/dL Low >40 [facility] Comment on above: The drugs N-Acetylcy steine and Metamizole may falsely depress this assay. Reference Range HDL <40 mg/dL Low HDL Cholesterol HDL >or= 60 mg/dL High HDL Cholesterol Immature granulocytes/100 WB C Auto (Bld)Ordered By: Twan Guerrero on 10-24-2024 Immature granulocytes/100 WBC (Bld) 0.900 % 0.0-0.9 [facility] Comment on above: IG% - Immature Granu locytes (promyelocytes, myelocytes and metamyelocytes) > 1% indicates that a LEFT SHIFT is Present. Lipid Profileon 10-24-2024 Cholesterol [Mass/Vol] 121 mg/dL Normal 200 [facility] Comment on above: Order Comment: 204.1 Result Comment: <200 mg/dL Desirable 200-240 mg/dL Borderline >240 mg/dL High Risk Performed By: #### L 500.4100, L100.0100 #### [facility] Laboratory [address] [place], [address] Cholesterol in HDL [Mass/Vol] 32 mg/dL Low [facility] Comment on above: Order Comment: 204.1 Result Comment: The drugs N-Acetylcysteine and Metamizole may falsely depress this assay. Reference Range HDL <40 mg/dL Low HDL Cholesterol HDL >or= 60 mg/dL High HDL Cholesterol Performed By: #### L 500.4100, L100.0100 #### [facility] Laboratory [address] [place], [address] Cholesterol in LDL [Mass/Vol] 44 mg/dL Normal 0-130 [facility] Comment on above: Order Comment: 204.1 Performed By: #### L 500.4100, L100.0100 #### [facility] Laboratory [address] [place], [address] Cholesterol in VLDL [Mass/Vol] 45 mg/dL High 5-40 [facility] Comment on above: Order Comment: 204.1 Performed By: #### L 500.4100, L100.0100 #### [facility] Laboratory [address] [facility] [place], [address] Triglyceride [Mass/Vol] 226 mg/dL High [facility] Comment on above: Order Comment: 204.1 Result Comment: The drugs N-Acetylcysteine and Metamizole may falsely depress this assay. Serum Triglycerides Reference Interval Normal <150 mg/dL Borderline high 150 - 199 mg/dL High 200 - 499 mg/dL Very High > or = 500 mg/dL Performed By: #### L 500.4100, L100.0100 #### [facility] Laboratory [address] [place], [place], [address] Low density lipoprotein (LDL ) cholesterol measurementOrdered By: Twan Guerrero on 10-24-2024 Cholesterol in LDL [Mass/Vol] 44 mg/dL 0-130 [facility] MCV (mean corpuscular volume ) determinationOrdered By: Twan Guerrero on 10-24-2024 MCV (RBC) [Entitic vol] 92.4 fL 81-99 [facility] Mean corpuscular hemoglobin (MCH) determinationOrdered By: Twan Guerrero on 10-24-2024 MCH (RBC) [Entitic mass] 29.0 pg 27.0-32.0 [facility] Mean corpuscular hemoglobin concentration (MCHC) determinationOrdered By: Twan Guerrero on 10-24-2024 MCHC (RBC) [Mass/Vol] 31.4 g/dL Low 32-36 [facility] Mean platelet volume determi nationOrdered By: Twan Guerrero on 10-24-2024 Platelet mean volume (Bld) [Entitic vol] 10.5 fL 6.2-12.0 [facility] Monocyte percentageOrdered B y: Twan Guerrero on 10-24-2024 Monocytes/100 WBC (Bld) 9.1 % 0-10 [facility] Neutrophil percentageOrdered By: Twan Guerrero on 10-24-2024 Neutrophils/100 WBC (Bld) 53.4 % 47-70 [facility] Nucleated red blood cell per centageOrdered By: Twan Guerrero on 10-24-2024 Nucleated RBC/100 WBC (Bld) [Ratio] 0 % 0-5 [facility] Platelet countOrdered By: Ervin on 10-24-2024 Platelets (Bld) [#/Vol] 213 10*3/uL 150-450 [facility] RBC Auto (Bld) [#/Vol]Ordere d By: Twan Guerrero on 10-24-2024 RBC (Bld) [#/Vol] 3.69 10*6/uL Low 4.2-5.4 [facility] Serum or plasma cholesterol measurement (mass/volume)Ordered By: Twan Guerrero on 10-24-2024 Cholesterol [Mass/Vol] 121 mg/dL <200 [facility] Comment on above: <200 mg/dL Desirable 200-240 mg/dL Borderline >240 mg/dL High Risk Triglycerides measurementOrd ered By: Twan Guerrero on 10-24-2024 Triglyceride [Mass/Vol] 226 mg/dL High <199 [facility] Comment on above: The drugs N-Acetylcy steine and Metamizole may falsely depress this assay.Serum Triglycerides Reference Interval Normal <150 mg/dL Borderline high 150 - 199 mg/dL High 200 - 499 mg/dL Very High > or = 500 mg/dL Very low density lipoprotein (VLDL) cholesterol measurementOrdered By: Twan Guerrero on 10-24-2024 Very low density lipoprotein (VLDL) cholesterol measurement 45 mg/dL High 5-40 [facility] White blood cell (WBC) count Ordered By: Twan Guerrero on 10-24-2024 WBC (Bld) [#/Vol] 8.0 10*3/uL 4.4-11.0 [facility] Urine Cultureon 10-17-2024 [facility] cath urine is not recommended. Growth may represent distal urethral latoya. Streptococcus dysgalactiae equ [place] Count 25,000-50,000 Proteus mirabilis Proteus mirabilis Streptococcus dysgalactiae equ: REACTION Ampicillin Islt JOHN <=0.25 S Cefotaxime Islt JOHN <=0.12 cefTRIAXone Islt JOHN <=0.12 S Linezolid Islt JOHN <=2 S Vancomycin Islt JOHN 0.5 S Proteus mirabilis: REACTION Ampicillin Islt JOHN >=32 R Ampicillin+Sulbac Islt JOHN 16 Cefepime Islt JOHN <=0.12 S cefTRIAXone Islt JOHN <=0.25 S Ciprofloxacin Islt JOHN >=4 R Gentamicin Islt JOHN 4 I levoFLOXacin Islt JOHN >=8 R Meropenem Islt JOHN <=0.25 S Nitrofurantoin Islt JOHN R Pip+Tazo Islt JOHN <=4 S TMP SMX Islt JOHN 40 S Normal [facility] Comment on above: Performed By: #### M 100.2200 ####[facility] [id number] [place], [address] 12 Lead EKGon 10-14-2024 12 Lead EKG [facility] [address] [place] [address] 12 Lead EKG 10/14/24 0749 MR#: [id number] Acct: [id number] Name: SHIN ROJO Rep #: [id number] : [id number] 69 From: Jennie Marmolejo MD Attending Dr: Status: DEP ER Ordering Dr: Abel Wang DO Date: 10/14/24 Location: ED Sex: F C Admitted: Test Reason : Blood Pressure : */* mmHG Vent. Rate : 82 BPM Atrial Rate : 82 BPM P-R Int : 164 ms QRS Dur : 96 ms QT Int : 396 ms P-R-T Axes : 46 -48 21 degrees QTcB Int : 462 ms Sinus rhythm with frequent Premature ventricular complexes Incomplete right bundle branch block Left anterior fascicular block Nonspecific T wave abnormality Abnormal ECG Confirmed by MAYUR HALL, MARKO ([id number]), editorial clerk JARRED ARCOS ([id number]) on 10/17/2024 6:10:01 AM Referred By: Confirmed By: MARKO MARMOLEJO MD 10/17/24 0610 Date Jnenie Marmolejo MD CC: Dr. Abel Wang DO Signed Normal [facility] Basic Metabolic Profile (BMP )on 10-14-2024 BUN/CRE 19.2 RATIO Normal 10-20 [facility] Comment on above: Order Comment: 1Y Performed By: #### L 501.5425, L100.0100, L501.9520, L500.2500 ####[facility] [id number] [place], [address] CA,Total 8.9 mg/dL Normal 8.5-10.1 [facility] Comment on above: Order Comment: 1Y Performed By: #### L 501.5425, L100.0100, L501.9520, L500.2500 ####[facility] [id number] [place], [address] Chloride [Moles/Vol] 110 mmol/L High 98-[address] [facility] Comment on above: Order Comment: 1Y Performed By: #### L 501.5425, L100.0100, L501.9520, L500.2500 ####[facility] [id number] [place], [address] CO2 [Moles/Vol] 26.0 mmol/L Normal 21.0-32.0 [facility] Comment on above: Order Comment: 1Y Performed By: #### L 501.5425, L100.0100, L501.9520, L500.2500 ####[facility] [id number] [place], [address] Creatinine [Mass/Vol] 0.62 mg/dL Normal 0.55-1.02 [facility] Comment on above: Order Comment: 1Y Result Comment: The validity of the calculated GFR GFRAA in patients over 70 years has not been determined. Clinical correlation is essential. Performed By: #### L 501.5425, L100.0100, L501.9520, L500.2500 ####[facility] [id number] [place], [address] ECRCL 68.21 ml/min Normal [facility] Comment on above: Order Comment: 1Y Performed By: #### L 501.5425, L100.0100, L501.9520, L500.2500 ####[facility] [address] [place], [address] EST GFR - AA 121 mL/min Normal >60 [facility] Comment on above: Order Comment: 1Y Result Comment: Afri can [place] GFR Calc Performed By: #### L 501.5425, L100.0100, L501.9520, L500.2500 ####[facility] [id number] [place], [address] GAP 6 Normal 5-15 [facility] Comment on above: Order Comment: 1Y Performed By: #### L 501.5425, L100.0100, L501.9520, L500.2500 ####[facility] [id number] [place], [address] GFR/1.73 sq M.predicted among non-blacks MDRD (S/P/Bld) [Vol rate/Area] 100 mL/min/{1.73_m2} Normal >60 [facility] Comment on above: Order Comment: 1Y Result Comment: Non- GFR Calc Performed By: #### L 501.5425, L100.0100, L501.9520, L500.2500 ####[facility] [address] [place], [address] Glucose [Mass/Vol] 108 mg/dL High 74-106 [facility] Comment on above: Order Comment: 1Y Result Comment: Fast ing Glucose result from 100 to 125 mg/dL suggests IMPAIRED HOMEOSTASIS per A.D.A. criteria. Performed By: #### L 501.5425, L100.0100, L501.9520, L500.2500 ####[facility] [address] [place], [address] Potassium [Moles/Vol] 3.6 mmol/L Normal 3.5-5.1 [facility] Comment on above: Order Comment: 1Y Performed By: #### L 501.5425, L100.0100, L501.9520, L500.2500 ####[facility] [address] [place], [address] Sodium [Moles/Vol] 142 mmol/L Normal 136-145 [facility] Comment on above: Order Comment: 1Y Performed By: #### L 501.5425, L100.0100, L501.9520, L500.2500 ####[facility] [address] [place], [address] Urea nitrogen [Mass/Vol] 12 mg/dL Normal 7-18 [facility] Comment on above: Order Comment: 1Y Performed By: #### L 501.5425, L100.0100, L501.9520, L500.2500 ####[facility] [address] [place], [address] Brain/Head without Contrasto n 10-14-2024 Brain/Head without Contrast [facility] Imaging Services [address] [place] [address] Brain/Head without Contrast MR#: [id number] Acct: [id number] Name: SHIN ROJO Solo Rep #: [id number] : 1955 F 69 From: Josefina barron MD PCP: OUT OF TOWN DOCTOR Status: REG ER Study: Brain/Head without Contrast Date of Exam: 09/21 02/11 Exam# [id number] Ordering Dr: Abel Wang DO [id number] HISTORY: AMS. TECHNIQUE: Multiple axial images were obtained of the head without intravenous contrast. A radiation dose optimization technique was used for this scan. 259 images. COMPARISON: MR 01/21/2021. FINDINGS: BRAIN PARENCHYMA: Mild chronic small vessel ischemic gliosis. No acute intra-axial hemorrhage. 1.5 cm cystic lesion in the left thalamus again seen. CSF SPACES: Cerebral ventricles, cortical sulci, and other extra-axial CSF spaces within normal limits in size for age. No midline shift or other significant mass effect. No acute extra-axial hemorrhage. OTHER: Intact calvarium. No significant air fluid levels in the paranasal sinuses or mastoid air cells. Unremarkable orbits. CT/Brain/Head without Contrast IMPRESSION: No acute intracranial process identified. Mild chronic small vessel ischemic gliosis. 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 Electronically Signed: Josefina Quiroga MD at 9:19 EST , CC: Dr. Abel Wang, [employer] Intern: Signed Normal [facility] CBC W/Diff, Automatedon 09-21 PLT EST ADEQUATE Normal ADEQ [facility] Comment on above: Performed By: #### L 501.5425, L100.0100, L501.9520, L500.2500 #### [facility] Laboratory [address] [facility] [place], [address] RED CELL MORPH NORM C+C Normal NORM C C [facility] Comment on above: Performed By: #### L 501.5425, L100.0100, L501.9520, L500.2500 #### [facility] Laboratory [address] [place], [address] SMEAR COMMENT SCANNED Normal [facility] Comment on above: Performed By: #### L 501.5425, L100.0100, L501.9520, L500.2500 #### [facility] Laboratory [address] [place], [address] Chest PA and Lateralon 10-14 Chest PA and Lateral [facility] Imaging Services [address] [place] [address] Chest PA and Lateral MR#: [id number] Acct: [id number] Name: SHIN ROJO Rep #: [id number] : 1955 F 69 From: Josefina barron MD PCP: OUT OF TOWN DOCTOR Status: REG ER Study: Chest PA and Lateral Date of Exam: 10/14/24 Exam# [id number] Ordering Dr: Abel Wang DO [id number] HISTORY: chest pain. TECHNIQUE: XR Chest 2 Views. COMPARISON: 09/08/2022. FINDINGS: CARDIOMEDIASTINAL BORDERS: Cardiac silhouette within normal limits in size. Mediastinal contour also unchanged. LUNGS: Mild bibasilar opacities. PLEURA: No pleural effusion or pneumothorax seen. OSSEOUS STRUCTURES: Degenerative change and thoracic scoliosis again seen. Osteopenia. RAD/Chest PA and Lateral IMPRESSION: Mild bibasilar opacities concerning for atelectasis and pneumonia. Electronically Signed: Josefina Quiroga MD at 9:38 EST Reading Location ID and State: [facility] / [place] Tel , Service support , CC: Dr. Abel Wang DO [employer] Intern: Signed Normal [facility] Emergency Department Summary on 10-14-2024 Emergency Department Summary [facility] Medical Records Department [address] [place] [id number] Emergency Department Summary 10/14/24 MR#: [id number] Acct: [id number] Name: SHIN ROJO Rep #: [id number] : 1955 69 From: Abel Wang DO PCP: OUT OF TOWN DOCTOR Status:REG ER Location: ED HPI History of Present Illness Chief Complaint: General Illness Narrative Narrative: Patient is a 69-year-old female with a past medical history of multiple sclerosis, quadriplegia, neurogenic bladder, COPD, suprapubic catheter, atrial fibrillation, BMI greater than 30, hypertension, depression who presented to the emergency department via EMS with a chief complaint of unresponsive at the nursing facility. According to EMS they were doing their morning rounds and could not arouse the patient. By the time they arrived there she was on oxygen getting fluids. They noted that she was in the low 80s on room air. States that she is not normally on oxygen. Patient states that overall she had been feeling well except for the past 3 days she has been "running a fever" she cannot tell me the exact temperature. States that she also has had a dry cough. [facility] Medical History Urinary tract infection Urinary retention Neurogenic bladder Depression Bladder disease Multiple sclerosis History of ulceration Gastric reflux Former smoker COPD (chronic obstructive pulmonary disease) History of edema History of stress test Suprapubic catheter History of deviated nasal septum Hypertension History of atrial fibrillation Home Medications ???Medication ???Instructions ???Recorded ???Last Taken ???Type Aspercreme (lidocaine) 4 % transdermal PRN PRN Pain 03/10/21 Unknown History acetaminophen 500 mg tablet 1,000 mg PO Q6H PRN Pain 03/10/21 09/21/24 History ascorbic acid (vitamin C) 500 mg 500 mg PO DAILY 03/10/21 10/13/24 History tablet (Vitamin C) aspirin 81 mg tablet,delayed 81 mg PO DAILY 03/10/21 10/13/24 History release atorvastatin 40 mg tablet 40 mg PO QHS 03/10/21 10/13/24 History baclofen 20 mg tablet 20 mg PO TID 03/10/21 10/13/24 History calcium 600 mg (as 1 tab PO DAILY 03/10/21 10/13/24 History carbonate)-vitamin D3 10 mcg (400 unit) tablet (Calcium 600 + D(3)) camphor-menthol 0.2 %-3.5 % 1 applic topical DAILY PRN Pain 03/10/21 Unknown History topical gel cholecalciferol (vitamin D3) 50 50 mcg PO DAILY 03/10/21 10/13/24 History mcg (2,000 unit) capsule (Vitamin D3) cyclobenzaprine 10 mg tablet 10 mg PO TID PRN Muscle Spasm 03/10/21 Unknown History dextromethorphan-guaifenes in 10 10 ml PO Q4H PRN Cough 03/10/21 Unknown History mg-100 mg/5 mL oral syrup docusate sodium 100 mg capsule 100 mg PO DAILY PRN Constipation 03/10/21 10/12/24 History (Colace) famotidine 20 mg tablet 20 mg PO QHS 03/10/21 10/13/24 History guaifenesin 600 mg tablet, 600 mg PO Q12H PRN Congestion 03/10/21 10/13/24 History extended release 12 hr (Mucinex) hydrocodone-acetaminophen 5-325mg 1 tab PO Q6H PRN Pain 03/10/21 10/12/24 History 5mg-325mg ibuprofen 400 mg tablet 400 mg PO Q8H PRN Pain 03/10/21 Unknown History loratadine 10 mg capsule 10 mg PO DAILY 03/10/21 10/13/24 History magnesium citrate (Citrate of 150 ml PO DAILY PRN Constipation 03/10/21 Unknown History Magnesia oral) magnesium hydroxide 400 mg/5 mL 30 ml PO DAILY PRN Constipation 03/10/21 Unknown History oral suspension (Milk of Magnesia) multivitamin 1 cap PO DAILY 03/10/21 10/13/24 History polyethylene glycol 3350 17 gram 17 g PO QODAY 03/10/21 Unknown History oral powder packet (Miralax) salt moisturizing solution no1 1 spray intranasal DAILY PRN dry 03/10/21 Unknown History nares vitamin E 268 mg (400 unit) capsule 400 unit PO DAILY 03/10/21 10/13/24 History zinc 50 mg capsule 50 mg PO DAILY 03/10/21 10/13/24 History zinc oxide 20 % topical ointment 1 applic topical TID 03/10/21 Unknown History amino acids-protein hydrolysate 16 30 ml PO BID 10/14/24 10/13/24 History gram-100 kcal/30 mL oral liquid (Liquacel) cranberry fruit 450 mg tablet 450 mg PO BID 10/14/24 10/13/24 History (cranberry) cyanocobalamin (vitamin B-12) 500 500 mcg PO DAILY 10/14/24 10/13/24 History mcg tablet doxycycline hyclate 100 mg capsule 100 mg PO BID 7 days #14 caps 10/14/24 Unknown Rx ezetimibe 10 mg tablet 10 mg PO DAILY 10/14/24 10/13/24 History gabapentin 300 mg capsule 300 mg PO DAILY 01/25/25 01/24/25 History oxymetazoline 0.05 % nasal spray 3 spray intranasal Q12H 10/14/24 10/12/24 History (Nasal Decongestant (oxymetazoline)) pantoprazole 20 mg tablet,delayed 20 mg PO DAILY 10/14/24 10/13/24 History release prednisone 50 mg tablet 50 mg PO DAILY 5 days #5 tabs 10/14/24 Unknown Rx pyridoxine (vitamin B6) 100 mg (more content not included)... Normal [facility] L501.4020on 10-14-2024 TROPONIN-I HS 5 pg/mL Normal 3.0-54.0 [facility] Comment on above: Result Comment: Plea se Note: New Test Units and Gender Specific Reference Ranges. For more information see Policy Stat Procedure [place] High Sensitivity Troponin (TNIH) and attachments. Performed By: #### L 501.4020 ####[facility] [address] [place], [address] L501.5425on 10-14-2024 TROPONIN-I HS 6 pg/mL Normal 3.0-54.0 [facility] Comment on above: Order Comment: 1Y Result Comment: Plea se Note: New Test Units and Gender Specific Reference Ranges. For more information see Policy Stat Procedure [place] High Sensitivity Troponin (TNIH) and attachments. Performed By: #### L 501.5425, L100.0100, L501.9520, L500.2500 ####[facility] [address] [place], [address] M100.678on 10-14-2024 M100.678 Pending SARS-CoV-2 (COVID 19) A Positive A INFLUENZA A Negative INFLUENZA B Negative RSV PCR Negative SARS-CoV-2 (COVID 19 PCR) Normal [facility] Comment on above: Performed By: #### M 100.678 #### [facility] Laboratory [address] [place], [address] Thyroid Stim Hormone (TSH)on 10-14-2024 TSH 1.850 uIU/mL Normal 0.358-3.740 [facility] Comment on above: Order Comment: 1Y Performed By: #### L 501.5425, L100.0100, L501.9520, L500.2500 ####[facility] [address] [place], [address] Urinalysis, Completeon 10-14 BACTERIA 3+ /hpf Normal None Seen [facility] Comment on above: Order Comment: COLLE CTOR TO SPECIFY Performed By: #### L 400.0001 #### [facility] Laboratory [address] [place], [address] EPI,SQUAMOUS 0-5 SEEN Normal 5-10 [facility] Comment on above: Order Comment: LUCIA CTOR TO SPECIFY Performed By: #### L 400.0001 #### [facility] Laboratory [address] [place], [address] WBC 0-5 SEEN Normal 0-5 [facility] Comment on above: Order Comment: LUCIA CTOR TO SPECIFY Performed By: #### L 400.0001 #### [facility] Laboratory [address] [place], [address] Mucus Ql (Urine sed) [address] [facility] Comment on above: Order Comment: LUCIA CTOR TO SPECIFY Performed By: #### L 400.0001 #### [facility] Laboratory [address] [place], [address] RBC 0 SEEN Normal 0-5 [facility] Comment on above: Order Comment: LUCIA CTOR TO SPECIFY Performed By: #### L 400.0001 #### [facility] Laboratory [address] [place], [address] Venous Blood Gason 5 Blood Gas Type TRESA Normal [facility] Comment on above: Performed By: #### L 9000.0810 #### [facility] Laboratory [address] [place], [address] CO2 [Moles/Vol] 25 mmol/L Normal 23-33 [facility] Comment on above: Performed By: #### L 9000.0810 #### [facility] Laboratory [address] [place], [address] FI02 21.0 Normal [facility] Comment on above: Performed By: #### L 9000.0810 #### [facility] Laboratory [address] [place], [address] HCO3 (Bld) [Moles/Vol] 24 mmol/L Normal 22-26 [facility] Comment on above: Performed By: #### L 9000.0810 #### [facility] Laboratory [address] [place], [address] O2 Delivery Dev Room Air [facility] Comment on above: Performed By: #### L 9000.0810 #### [facility] Laboratory [address] [place], [address] SITE Not entered [facility] Comment on above: Performed By: #### L 9000.0810 #### [facility] Laboratory [address] [place], [address] VBG BE 0 mmol/L Normal -1.0-3.5 [facility] Comment on above: Performed By: #### L 9000.0810 #### [facility] Laboratory [address] [place], [address] VBG pCO2 35.2 mmHg Low 41-51 [facility] Comment on above: Performed By: #### L 9000.0810 #### [facility] Laboratory [address] [place], [address] VBG pH 7.44 High 7.32-7.42 [facility] Comment on above: Performed By: #### L 9000.0810 #### [facility] Laboratory [address] [place], [address] VBG PO2 53 mmHg High 25-40 [facility] Comment on above: Performed By: #### L 9000.0810 #### [facility] Laboratory [address] [place], [address] VBG SO2 89 High 50-70 [facility] Comment on above: Performed By: #### L 9000.0810 #### [facility] Laboratory [address] [place], [address] CBC W/Diff, Automatedon 11- Absolute Lymph 2.38 X10 3/uL Normal 0.83-4.51 [facility] Comment on above: Order Comment: 204.1 Performed By: #### L 500.4100, L100.0100 ####[facility] [id number] [place], [address] Absolute Neut 3.5 X10 3/uL Normal 2.0-7.7 [facility] Comment on above: Order Comment: 204.1 Performed By: #### L 500.4100, L100.0100 ####[facility] [address] [place], [address] Basophils/100 WBC (Bld) 0.6 % Normal 0-1 [facility] Comment on above: Order Comment: 204.1 Performed By: #### L 500.4100, L100.0100 ####[facility] [address] [place], [address] Eosinophils/100 WBC (Bld) 1.8 % Normal 0-5 [facility] Comment on above: Order Comment: 204.1 Performed By: #### L 500.4100, L100.0100 ####[facility] [address] [place], [address] Erythrocyte distribution width (RBC) [Ratio] 14.3 % Normal 11.6-14.6 [facility] Comment on above: Order Comment: 204.1 Performed By: #### L 500.4100, L100.0100 ####[facility] [address] [place], [address] Hematocrit (Bld) [Volume fraction] 35.6 % Low 37-47 [facility] Comment on above: Order Comment: 204.1 Performed By: #### L 500.4100, L100.0100 ####[facility] [address] [place], [address] Hemoglobin (Bld) [Mass/Vol] 11.0 g/dL Low 12.0-15.0 [facility] Comment on above: Order Comment: 204.1 Performed By: #### L 500.4100, L100.0100 ####[facility] [address] [place], [address] IG% 0.300 Normal 0.0-0.9 [facility] Comment on above: Order Comment: 204.1 Result Comment: IG% - Immature Granulocytes (promyelocytes, myelocytes and metamyelocytes) > 1% indicates that a LEFT SHIFT is Present. Performed By: #### L 500.4100, L100.0100 ####[facility] [address] [place], [address] Lymphocytes/100 WBC (Bld) 35.1 % Normal 19-41 [facility] Comment on above: Order Comment: 204.1 Performed By: #### L 500.4100, L100.0100 ####[facility] [address] [place], [address] MCH (RBC) [Entitic mass] 29.3 pg Normal 27.0-32.0 [facility] Comment on above: Order Comment: 204.1 Performed By: #### L 500.4100, L100.0100 ####[facility] [address] [place], [address] MCHC (RBC) [Mass/Vol] 30.9 g/dL Low 32-36 [facility] Comment on above: Order Comment: 204.1 Performed By: #### L 500.4100, L100.0100 ####[facility] [address] [place], [address] MCV (RBC) [Entitic vol] 94.7 fL Normal 81-99 [facility] Comment on above: Order Comment: 204.1 Performed By: #### L 500.4100, L100.0100 ####[facility] [address] [place], [address] Monocytes/100 WBC (Bld) 11.1 % High 0-10 [facility] Comment on above: Order Comment: 204.1 Performed By: #### L 500.4100, L100.0100 ####[facility] [address] [place], [address] Neutrophils/100 WBC (Bld) 51.1 % Normal 47-70 [facility] Comment on above: Order Comment: 204.1 Performed By: #### L 500.4100, L100.0100 ####[facility] [address] [place], [address] Nucleated RBC (Bld) [#/Vol] 0 10*3/uL Normal 0-5 [facility] Comment on above: Order Comment: 204.1 Performed By: #### L 500.4100, L100.0100 ####[facility] [address] [place], [address] Platelet mean volume (Bld) [Entitic vol] 10.8 fL Normal 6.2-12.0 [facility] Comment on above: Order Comment: 204.1 Performed By: #### L 500.4100, L100.0100 ####[facility] [address] [place], [address] Platelets (Bld) [#/Vol] 240 10*3/uL Normal 150-450 [facility] Comment on above: Order Comment: 204.1 Performed By: #### L 500.4100, L100.0100 ####[facility] [address] [place], [address] RBC (Bld) [#/Vol] 3.76 10*6/uL Low 4.2-5.4 [facility] Comment on above: Order Comment: 204.1 Performed By: #### L 500.4100, L100.0100 ####[facility] [address] [place], [address] RDW SD 49.2 fl High 35.1-43.9 [facility] Comment on above: Order Comment: 204.1 Performed By: #### L 500.4100, L100.0100 ####[facility] [address] [place], [address] WBC (Bld) [#/Vol] 6.8 10*3/uL Normal 4.4-11.0 [facility] Comment on above: Order Comment: 204.1 Performed By: #### L 500.4100, L100.0100 ####[facility] [address] [place], [address] Lipid Profileon 08-01-2024 Cholesterol [Mass/Vol] 123 mg/dL Normal 200 [facility] Comment on above: Order Comment: 204.1 Result Comment: <200 mg/dL Desirable 200-240 mg/dL Borderline >240 mg/dL High Risk Performed By: #### L 500.4100, L100.0100 ####[facility] [address] [place], [address] Cholesterol in HDL [Mass/Vol] 35 mg/dL Low [facility] Comment on above: Order Comment: 204.1 Result Comment: The drugs N-Acetylcysteine and Metamizole may falsely depress this assay. Reference Range HDL <40 mg/dL Low HDL Cholesterol HDL >or= 60 mg/dL High HDL Cholesterol Performed By: #### L 500.4100, L100.0100 ####[facility] [address] [place], [address] Cholesterol in LDL [Mass/Vol] 46 mg/dL Normal 0-130 [facility] Comment on above: Order Comment: 204.1 Performed By: #### L 500.4100, L100.0100 ####[facility] [address] [place], [address] Cholesterol in VLDL [Mass/Vol] 42 mg/dL High 5-40 [facility] Comment on above: Order Comment: 204.1 Performed By: #### L 500.4100, L100.0100 ####[facility] [address] [place], [address] Triglyceride [Mass/Vol] 212 mg/dL High [facility] Comment on above: Order Comment: 204.1 Result Comment: The drugs N-Acetylcysteine and Metamizole may falsely depress this assay. Serum Triglycerides Reference Interval Normal <150 mg/dL Borderline high 150 - 199 mg/dL High 200 - 499 mg/dL Very High > or = 500 mg/dL Performed By: #### L 500.4100, L100.0100 ####[facility] [address] [place], [address] CBC W/Diff, Automatedon 08-2 0-2024 Absolute Lymph 1.80 X10 3/uL Normal 0.83-4.51 [facility] Comment on above: Order Comment: 208.1 Performed By: #### L 500.4100, L100.0100 #### [facility] Laboratory [address] [place], [address] Absolute Neut 3.5 X10 3/uL Normal 2.0-7.7 [facility] Comment on above: Order Comment: 208.1 Performed By: #### L 500.4100, L100.0100 #### [facility] Laboratory [address] [place], [address] Basophils/100 WBC (Bld) 0.6 % Normal 0-1 [facility] Comment on above: Order Comment: 208.1 Performed By: #### L 500.4100, L100.0100 #### [facility] Laboratory [address] [place], [address] Eosinophils/100 WBC (Bld) 0.6 % Normal 0-5 [facility] Comment on above: Order Comment: 208.1 Performed By: #### L 500.4100, L100.0100 #### [facility] [facility] [address] [place], [address] Erythrocyte distribution width (RBC) [Ratio] 14.3 % Normal 11.6-14.6 [facility] Comment on above: Order Comment: 208.1 Performed By: #### L 500.4100, L100.0100 #### [facility] [address] [place], [address] Hematocrit (Bld) [Volume fraction] 34.9 % Low 37-47 [facility] Comment on above: Order Comment: 208.1 Performed By: #### L 500.4100, L100.0100 #### [facility] [address] [place], [address] Hemoglobin (Bld) [Mass/Vol] 10.9 g/dL Low 12.0-15.0 [facility] Comment on above: Order Comment: 208.1 Performed By: #### L 500.4100, L100.0100 #### [facility] [address] [place], [address] IG% 0.500 Normal 0.0-0.9 [facility] Comment on above: Order Comment: 208.1 Result Comment: IG% - Immature Granulocytes (promyelocytes, myelocytes and metamyelocytes) > 1% indicates that a LEFT SHIFT is Present. Performed By: #### L 500.4100, L100.0100 #### [facility] [address] [place], [address] Lymphocytes/100 WBC (Bld) 27.2 % Normal 19-41 [facility] Comment on above: Order Comment: 208.1 Performed By: #### L 500.4100, L100.0100 #### [facility] [address] [place], [address] MCH (RBC) [Entitic mass] 29.2 pg Normal 27.0-32.0 [facility] Comment on above: Order Comment: 208.1 Performed By: #### L 500.4100, L100.0100 #### [facility] [address] [place], [address] MCHC (RBC) [Mass/Vol] 31.2 g/dL Low 32-36 [facility] Comment on above: Order Comment: 208.1 Performed By: #### L 500.4100, L100.0100 #### [facility] [address] [place], [address] MCV (RBC) [Entitic vol] 93.6 fL Normal 81-99 [facility] Comment on above: Order Comment: 208.1 Performed By: #### L 500.4100, L100.0100 #### [facility] [address] [place], [address] Monocytes/100 WBC (Bld) 18.8 % High 0-10 [facility] Comment on above: Order Comment: 208.1 Performed By: #### L 500.4100, L100.0100 #### [facility] [address] [place], [address] Neutrophils/100 WBC (Bld) 52.3 % Normal 47-70 [facility] Comment on above: Order Comment: 208.1 Performed By: #### L 500.4100, L100.0100 #### [facility] [address] [place], [address] Nucleated RBC (Bld) [#/Vol] 0 10*3/uL Normal 0-5 [facility] Comment on above: Order Comment: 208.1 Performed By: #### L 500.4100, L100.0100 #### [facility] [address] [place], [address] Platelet mean volume (Bld) [Entitic vol] 10.6 fL Normal 6.2-12.0 [facility] Comment on above: Order Comment: 208.1 Performed By: #### L 500.4100, L100.0100 #### [facility] [address] [place], [address] Platelets (Bld) [#/Vol] 209 10*3/uL Normal 150-450 [facility] Comment on above: Order Comment: 208.1 Performed By: #### L 500.4100, L100.0100 #### [facility] [address] [place], [address] RBC (Bld) [#/Vol] 3.73 10*6/uL Low 4.2-5.4 [facility] Comment on above: Order Comment: 208.1 Performed By: #### L 500.4100, L100.0100 #### [facility] [address] [place], [address] RDW SD 48.9 fl High 35.1-43.9 [facility] Comment on above: Order Comment: 208.1 Performed By: #### L 500.4100, L100.0100 #### [facility] [address] [place], [address] WBC (Bld) [#/Vol] 6.6 10*3/uL Normal 4.4-11.0 [facility] Comment on above: Order Comment: 208.1 Performed By: #### L 500.4100, L100.0100 #### [facility] [address] [place], [address] Lipid Profileon 05-09-2024 Cholesterol [Mass/Vol] 124 mg/dL Normal 200 [facility] Comment on above: Order Comment: 208.1 Result Comment: <200 mg/dL Desirable 200-240 mg/dL Borderline >240 mg/dL High Risk Performed By: #### L 500.4100, L100.0100 #### [facility] [address] [place], [address] Cholesterol in HDL [Mass/Vol] 33 mg/dL Low [facility] Comment on above: Order Comment: 208.1 Result Comment: The drugs N-Acetylcysteine and Metamizole may falsely depress this assay. Reference Range HDL <40 mg/dL Low HDL Cholesterol HDL >or= 60 mg/dL High HDL Cholesterol Performed By: #### L 500.4100, L100.0100 #### [facility] [address] [place], [address] Cholesterol in LDL [Mass/Vol] 49 mg/dL Normal 0-130 [facility] Comment on above: Order Comment: 208.1 Performed By: #### L 500.4100, L100.0100 #### [facility] [address] [place], [address] Cholesterol in VLDL [Mass/Vol] 42 mg/dL High 5-40 [facility] Comment on above: Order Comment: 208.1 Performed By: #### L 500.4100, L100.0100 #### [facility] [address] [place], [address] Triglyceride [Mass/Vol] 211 mg/dL High [facility] Comment on above: Order Comment: 208.1 Result Comment: The drugs N-Acetylcysteine and Metamizole may falsely depress this assay. Serum Triglycerides Reference Interval Normal <150 mg/dL Borderline high 150 - 199 mg/dL High 200 - 499 mg/dL Very High > or = 500 mg/dL Performed By: #### L 500.4100, L100.0100 #### [facility] [address] [place], [address] Basophil percentageOrdered B y: Twan Guerrero on 12-21-2023 Bilirubin [Mass/Vol] 0.30 mg/dL 0.20-1.[address] [facility] Comment on above: For patients on eltr ombopag therapy, use of Dimension [place] TBIL is not recommended. Chloride [Moles/Vol] 110 mmol/L 98-[address] [facility] Glucose [Mass/Vol] 115 mg/dL 74-106 [facility] Comment on above: Fasting Glucose resu lt from 100 to 125 mg/dL suggests IMPAIRED HOMEOSTASIS per A.D.A. criteria. Hemoglobin (Bld) [Mass/Vol] 11.5 g/dL 12.0-15.0 [facility] Potassium [Moles/Vol] 3.8 mmol/L 3.5-5.1 [facility] Protein [Mass/Vol] 6.4 g/dL 6.4-8.2 [facility] Sodium [Moles/Vol] 143 mmol/L 136-145 [facility] WBC (Bld) [#/Vol] 7.9 10*3/uL 4.4-11.0 [facility] Determination of erythrocyte mean corpuscular volume (MCV)Ordered By: Twan Guerrero on 12-21-2023 MCV (RBC) [Entitic vol] 92.0 fL 81-99 [facility] Erythrocyte distribution wid th ratioOrdered By: Twan Guerrero on 12-21-2023 Erythrocyte distribution width (RBC) [Ratio] 14.5 % 11.6-14.6 [facility] Erythrocyte distribution wid th standard deviationOrdered By: Twan Guerrero on 12-21-2023 Erythrocyte distribution width (RBC) [Entitic vol] 48.9 fL 35.1-43.9 [facility] Hematocrit Auto (Bld) [Volum e fraction]Ordered By: Twan Guerrero on 12-21-2023 Hematocrit (Bld) [Volume fraction] 36.6 % 37-47 [facility] Laboratory - Chemistry and C hemistry - challengeOrdered By: Twan Guerrero on 12-21-2023 Albumin/Globulin [Mass ratio] 1.1 {ratio} 0.9-2.4 [facility] ALP [Catalytic activity/Vol] 87 U/L 45-117 [facility] ALT [Catalytic activity/Vol] 37 U/L 13-56 [facility] CO2 [Moles/Vol] 30.0 mmol/L 21.0-32.0 [facility] Globulin (S) [Mass/Vol] 3.1 g/dL 2.2-4.2 [facility] Urea nitrogen/Creatinine [Mass ratio] 19.2 mg/mg 10-20 [facility] Laboratory - Hematology and Cell countsOrdered By: Twan Guerrero on 12-21-2023 MCH (RBC) [Entitic mass] 28.9 pg 27.0-32.0 [facility] MCHC (RBC) [Mass/Vol] 31.4 g/dL 32-36 [facility] Platelet mean volume (Bld) [Entitic vol] 10.9 fL 6.2-12.0 [facility] Platelets (Bld) [#/Vol] 250 10*3/uL 150-450 [facility] No Panel InformationOrdered By: Twan Guerrero on 12-21-2023 Estimated GFR (MDRD) Amer 121 mL/min >60 [facility] Comment on above: GFR Calc Estimated GFR (MDRD) Non-Af Amer 100 mL/min >60 [facility] Comment on above: Non- GFR Calc RBC Auto (Bld) [#/Vol]Ordere d By: Twan Guerrero on 12-21-2023 RBC (Bld) [#/Vol] 3.98 10*6/uL 4.2-5.4 [facility] Serum or plasma calcium nohelia urement (mass/volume)Ordered By: Twan Guerrero on 12-21-2023 Calcium [Mass/Vol] 9.1 mg/dL 8.5-10.1 [facility] Serum or plasma creatinine m easurement (mass/volume)Ordered By: Twan Guerrero on 12-21-2023 Creatinine [Mass/Vol] 0.63 mg/dL 0.55-1.02 [facility] Comment on above: The validity of the calculated GFR & GFRAA in patients over 70 years has not been determined. Clinical correlation is essential. Serum or plasma urea nitroge n measurement (mass/volume)Ordered By: Twan Guerrero on 12-21-2023 Urea nitrogen [Mass/Vol] 12 mg/dL 7-18 [facility] Thin prep Papanicolaou smear with manual screeningOrdered By: Twan Guerrero on 12-21-2023 Thin prep Papanicolaou smear with manual screening 3.3 g/dL 3.2-5.0 [facility] Thin prep Papanicolaou smear with manual screening 23 U/L 15-37 [facility] Thin prep Papanicolaou smear with manual screening 3 5-15 [facility] Absolute lymphocyte countOrd ered By: Twan Guerrero on 11-22-2023 Lymphocytes Auto (Unsp spec) [#/Vol] 2.37 10*3/uL 0.83-4.51 [facility] Automated lymphocyte count a s percentage of total leukocytesOrdered By: Twan Guerrero on 11-22-2023 Lymphocytes/100 WBC Auto (Unsp spec) 33.3 % 19-41 [facility] Basophil percentageOrdered B y: Twan Guerrero on 11-22-2023 Basophils/100 WBC (Bld) 0.6 % 0-1 [facility] Cholesterol [Mass/Vol] 125 mg/dL <200 [facility] Comment on above: <200 mg/dL Desirable 200-240 mg/dL Borderline >240 mg/dL High Risk Eosinophils/100 WBC (Bld) 2.7 % 0-5 [facility] Hemoglobin (Bld) [Mass/Vol] 11.4 g/dL 12.0-15.0 [facility] Monocytes/100 WBC (Bld) 9.1 % 0-10 [facility] Neutrophils (Bld) [#/Vol] 3.8 10*3/uL 2.0-7.7 [facility] Neutrophils/100 WBC (Bld) 53.7 % 47-70 [facility] Triglyceride [Mass/Vol] 201 mg/dL <199 [facility] Comment on above: The drugs N-Acetylcy steine and Metamizole may falsely depress this assay.Serum Triglycerides Reference Interval Normal <150 mg/dL Borderline high 150 - 199 mg/dL High 200 - 499 mg/dL Very High > or = 500 mg/dL WBC (Bld) [#/Vol] 7.1 10*3/uL 4.4-11.0 [facility] Determination of erythrocyte mean corpuscular volume (MCV)Ordered By: Twan Guerrero on 11-22-2023 MCV (RBC) [Entitic vol] 92.5 fL 81-99 [facility] Erythrocyte distribution wid th ratioOrdered By: Twan Guerrero on 11-22-2023 Erythrocyte distribution width (RBC) [Ratio] 14.7 % 11.6-14.6 [facility] Erythrocyte distribution wid th standard deviationOrdered By: Twan Guerrero on 11-22-2023 Erythrocyte distribution width (RBC) [Entitic vol] 49.8 fL 35.1-43.9 [facility] Hematocrit Auto (Bld) [Volum e fraction]Ordered By: Twan Guerrero on 11-22-2023 Hematocrit (Bld) [Volume fraction] 35.9 % 37-47 [facility] Immature granulocytes/100 WB C Auto (Bld)Ordered By: Twan Guerrero on 11-22-2023 Immature granulocytes/100 WBC (Bld) 0.600 % 0.0-0.9 [facility] Comment on above: IG% - Immature Granu locytes (promyelocytes, myelocytes and metamyelocytes) > 1% indicates that a LEFT SHIFT is Present. Laboratory - Chemistry and C hemistry - challengeOrdered By: Twan Guerrero on 11-22-2023 Cholesterol in HDL [Mass/Vol] 33 mg/dL >40 [facility] Comment on above: The drugs N-Acetylcy steine and Metamizole may falsely depress this assay. Reference Range HDL <40 mg/dL Low HDL Cholesterol HDL >or= 60 mg/dL High HDL Cholesterol Cholesterol in LDL [Mass/Vol] 52 mg/dL 0-130 [facility] Laboratory - Hematology and Cell countsOrdered By: Twan Guerrero on 11-22-2023 MCH (RBC) [Entitic mass] 29.4 pg 27.0-32.0 [facility] MCHC (RBC) [Mass/Vol] 31.8 g/dL 32-36 [facility] Nucleated RBC/100 WBC (Bld) [Ratio] 0 % 0-5 [facility] Platelet mean volume (Bld) [Entitic vol] 10.6 fL 6.2-12.0 [facility] Platelets (Bld) [#/Vol] 229 10*3/uL 150-450 [facility] No Panel InformationOrdered By: Twan Guerrero on 11-22-2023 VLDL Cholesterol 40 mg/dL 5-40 [facility] RBC Auto (Bld) [#/Vol]Ordere d By: Twan Guerrero on 11-22-2023 RBC (Bld) [#/Vol] 3.88 10*6/uL 4.2-5.4 [facility] Laboratory - Chemistry and C hemistry - challengeOrdered By: Twan Guerrero on 11-09-2023 Cobalamin (Vitamin B12) [Mass/Vol] 1084 pg/mL 211-911 [facility] Basophil percentageOrdered B y: Twan Guerrero on 09-22-2023 Bilirubin [Mass/Vol] 0.30 mg/dL 0.20-1.[address] [facility] Comment on above: For patients on eltr ombopag therapy, use of [place] TBIL is not recommended. Chloride [Moles/Vol] 114 mmol/L 98-[address] [facility] Glucose [Mass/Vol] 101 mg/dL 74-106 [facility] Comment on above: Fasting Glucose resu lt from 100 to 125 mg/dL suggests IMPAIRED HOMEOSTASIS per A.D.A. criteria. Potassium [Moles/Vol] 4.0 mmol/L 3.5-5.1 [facility] Protein [Mass/Vol] 6.1 g/dL 6.4-8.2 [facility] Sodium [Moles/Vol] 144 mmol/L 136-145 [facility] WBC (Bld) [#/Vol] 6.6 10*3/uL 4.4-11.0 [facility] Blood erythrocytes count (nu mber/volume)Ordered By: Twan Guerrero on 09-22-2023 RBC (Bld) [#/Vol] 3.87 10*6/uL 4.2-5.4 [facility] Blood hemoglobin measurement (mass/volume)Ordered By: Twan Guerrero on 09-22-2023 Hemoglobin (Bld) [Mass/Vol] 11.4 g/dL 12.0-15.0 [facility] Blood platelet mean volumeOr dered By: Twan Guerrero on 09-22-2023 Platelet mean volume (Bld) [Entitic vol] 11.0 fL 6.2-12.0 [facility] Determination of erythrocyte mean corpuscular volume (MCV)Ordered By: Twan Guerrero on 09-22-2023 MCV (RBC) [Entitic vol] 92.5 fL 81-99 [facility] Hematocrit Auto (Bld) [Volum e fraction]Ordered By: Twan Guerrero on 09-22-2023 Hematocrit (Bld) [Volume fraction] 35.8 % 37-47 [facility] Laboratory - Chemistry and C hemistry - challengeOrdered By: Twan Guerrero on 09-22-2023 ALP [Catalytic activity/Vol] 86 U/L 45-117 [facility] ALT [Catalytic activity/Vol] 41 U/L 13-56 [facility] CO2 [Moles/Vol] 27.0 mmol/L 21.0-32.0 [facility] Globulin (S) [Mass/Vol] 3.0 g/dL 2.2-4.2 [facility] Urea nitrogen/Creatinine [Mass ratio] 15.5 mg/mg 10-20 [facility] Laboratory - Hematology and Cell countsOrdered By: Twan Guerrero on 09-22-2023 Erythrocyte distribution width (RBC) [Entitic vol] 49.5 fL 35.1-43.9 [facility] Erythrocyte distribution width (RBC) [Ratio] 14.8 % 11.6-14.6 [facility] MCH (RBC) [Entitic mass] 29.5 pg 27.0-32.0 [facility] MCHC Auto (RBC) [Mass/Vol]Or dered By: Twan Guerrero on 09-22-2023 MCHC (RBC) [Mass/Vol] 31.8 g/dL 32-36 [facility] No Panel InformationOrdered By: Twan Guerrero on 09-22-2023 Estimated GFR (MDRD) Amer 117 mL/min >60 [facility] Comment on above: GFR Calc Estimated GFR (MDRD) Non-Af Amer 97 mL/min >60 [facility] Comment on above: Non- GFR Calc Platelets bldOrdered By: Gisel Guerrero on 09-22-2023 Platelets (Bld) [#/Vol] 230 10*3/uL 150-450 [facility] Serum or plasma albumin nohelia urement (mass/volume)Ordered By: Twan Guerrero on 09-22-2023 Albumin [Mass/Vol] 3.1 g/dL 3.2-5.0 [facility] Serum or plasma albumin/glob ulin mass ratioOrdered By: Twan Guerrero on 09-22-2023 Albumin/Globulin [Mass ratio] 1.0 {ratio} 0.9-2.4 [facility] Serum or plasma calcium nohelia urement (mass/volume)Ordered By: Twan Guerrero on 09-22-2023 Calcium [Mass/Vol] 9.1 mg/dL 8.5-10.1 [facility] Serum or plasma creatinine m easurement (mass/volume)Ordered By: Twan Guerrero on 09-22-2023 Creatinine [Mass/Vol] 0.65 mg/dL 0.55-1.02 [facility] Comment on above: The validity of the calculated GFR & GFRAA in patients over 70 years has not been determined. Clinical correlation is essential. Serum or plasma urea nitroge n measurement (mass/volume)Ordered By: Twan Guerrero on 09-22-2023 Urea nitrogen [Mass/Vol] 10 mg/dL 7-18 [facility] Thin prep Papanicolaou smear with manual screeningOrdered By: Twan Guerrero on 09-22-2023 Thin prep Papanicolaou smear with manual screening 22 U/L 15-37 [facility] Thin prep Papanicolaou smear with manual screening 3 5-15 [facility] Absolute lymphocyte countOrd ered By: Twan Guerrero on 08-30-2023 Lymphocytes Auto (Unsp spec) [#/Vol] 2.43 10*3/uL 0.83-4.51 [facility] Basophil percentageOrdered B y: Twan Guerrero on 12-11-2023 Basophils/100 WBC (Bld) 0.7 % 0-1 [facility] Cholesterol [Mass/Vol] 107 mg/dL <200 [facility] Comment on above: <200 mg/dL Desirable 200-240 mg/dL Borderline >240 mg/dL High Risk Eosinophils/100 WBC (Bld) 1.7 % 0-5 [facility] Neutrophils (Bld) [#/Vol] 3.8 10*3/uL 2.0-7.7 [facility] Neutrophils/100 WBC (Bld) 54.5 % 47-70 [facility] Triglyceride [Mass/Vol] 147 mg/dL <199 [facility] Comment on above: The drugs N-Acetylcy steine and Metamizole may falsely depress this assay.Serum Triglycerides Reference Interval Normal <150 mg/dL Borderline high 150 - 199 mg/dL High 200 - 499 mg/dL Very High > or = 500 mg/dL WBC (Bld) [#/Vol] 7.1 10*3/uL 4.4-11.0 [facility] Blood erythrocytes count (nu mber/volume)Ordered By: Twan Guerrero on 08-30-2023 RBC (Bld) [#/Vol] 3.96 10*6/uL 4.2-5.4 [facility] Blood hemoglobin measurement (mass/volume)Ordered By: Twan Guerrero on 08-30-2023 Hemoglobin (Bld) [Mass/Vol] 11.3 g/dL 12.0-15.0 [facility] Blood lymphocytes/100 leukoc ytesOrdered By: Twan Guerrero on 08-30-2023 Lymphocytes/100 WBC (Bld) 34.5 % 19-41 [facility] Blood monocytes/100 leukocyt esOrdered By: Twan Guerrero on 08-30-2023 Monocytes/100 WBC (Bld) 8.2 % 0-10 [facility] Blood platelet mean volumeOr dered By: Twna Guerrero on 08-30-2023 Platelet mean volume (Bld) [Entitic vol] 10.9 fL 6.2-12.0 [facility] Determination of erythrocyte mean corpuscular volume (MCV)Ordered By: Twan Guerrero on 08-30-2023 MCV (RBC) [Entitic vol] 92.9 fL 81-99 [facility] Hematocrit Auto (Bld) [Volum e fraction]Ordered By: Twan Guerrero on 08-30-2023 Hematocrit (Bld) [Volume fraction] 36.8 % 37-47 [facility] Laboratory - Hematology and Cell countsOrdered By: Twan Guerrero on 08-30-2023 Erythrocyte distribution width (RBC) [Entitic vol] 50.4 fL 35.1-43.9 [facility] Erythrocyte distribution width (RBC) [Ratio] 14.7 % 11.6-14.6 [facility] Immature granulocytes/100 WBC (Bld) 0.400 % 0.0-0.9 [facility] Comment on above: IG% - Immature Granu locytes (promyelocytes, myelocytes and metamyelocytes) > 1% indicates that a LEFT SHIFT is Present. MCH (RBC) [Entitic mass] 28.5 pg 27.0-32.0 [facility] Nucleated RBC/100 WBC (Bld) [Ratio] 0 % 0-5 [facility] MCHC Auto (RBC) [Mass/Vol]Or dered By: Twan Guerrero on 08-30-2023 MCHC (RBC) [Mass/Vol] 30.7 g/dL 32-36 [facility] Platelets bldOrdered By: Gisel Guerrero on 08-30-2023 Platelets (Bld) [#/Vol] 247 10*3/uL 150-450 [facility] Serum or plasma cholesterol in HDL measurement (mass/volume)Ordered By: Twan Guerrero on 08-30-2023 Cholesterol in HDL [Mass/Vol] 35 mg/dL >40 [facility] Comment on above: The drugs N-Acetylcy steine and Metamizole may falsely depress this assay. Reference Range HDL <40 mg/dL Low HDL Cholesterol HDL >or= 60 mg/dL High HDL Cholesterol Serum or plasma cholesterol in VLDL measurement (mass/volume)Ordered By: Twan Guerrero on 08-30-2023 Cholesterol in VLDL [Mass/Vol] 29 mg/dL 5-40 [facility] Serum or plasma low density lipoprotein (LDL) cholesterol measurement (mass/volume)Ordered By: Twan Guerrero on 08-30-2023 Cholesterol in LDL [Mass/Vol] 43 mg/dL 0-130 [facility] Absolute lymphocyte countOrd ered By: Twan Guerrero on 06-07-2023 Lymphocytes Auto (Unsp spec) [#/Vol] 2.26 10*3/uL 0.83-4.51 [facility] Basophil percentageOrdered B y: Twan Guerrero on 06-07-2023 Basophils/100 WBC (Bld) 1.0 % 0-1 [facility] Cholesterol [Mass/Vol] 121 mg/dL <200 [facility] Comment on above: <200 mg/dL Desirable 200-240 mg/dL Borderline >240 mg/dL High Risk Eosinophils/100 WBC (Bld) 4.0 % 0-5 [facility] Neutrophils (Bld) [#/Vol] 2.7 10*3/uL 2.0-7.7 [facility] Neutrophils/100 WBC (Bld) 43.8 % 47-70 [facility] Triglyceride [Mass/Vol] 233 mg/dL <199 [facility] Comment on above: The drugs N-Acetylcy steine and Metamizole may falsely depress this assay.Serum Triglycerides Reference Interval Normal <150 mg/dL Borderline high 150 - 199 mg/dL High 200 - 499 mg/dL Very High > or = 500 mg/dL WBC (Bld) [#/Vol] 6.2 10*3/uL 4.4-11.0 [facility] Blood erythrocytes count (nu mber/volume)Ordered By: Twan Guerrero on 06-07-2023 RBC (Bld) [#/Vol] 3.93 10*6/uL 4.2-5.4 [facility] Blood hemoglobin measurement (mass/volume)Ordered By: Twan Guerrero on 06-07-2023 Hemoglobin (Bld) [Mass/Vol] 11.4 g/dL 12.0-15.0 [facility] Blood lymphocytes/100 leukoc ytesOrdered By: Twan Guerrero on 06-07-2023 Lymphocytes/100 WBC (Bld) 36.3 % 19-41 [facility] Blood monocytes/100 leukocyt esOrdered By: Twan Guerrero on 06-07-2023 Monocytes/100 WBC (Bld) 14.4 % 0-10 [facility] Blood platelet mean volumeOr dered By: Twan Guerrero on 06-07-2023 Platelet mean volume (Bld) [Entitic vol] 10.7 fL 6.2-12.0 [facility] Determination of erythrocyte mean corpuscular volume (MCV)Ordered By: Twan Guerrero on 06-07-2023 MCV (RBC) [Entitic vol] 94.1 fL 81-99 [facility] Hematocrit Auto (Bld) [Volum e fraction]Ordered By: Twan Guerrero on 06-07-2023 Hematocrit (Bld) [Volume fraction] 37.0 % 37-47 [facility] Laboratory - Hematology and Cell countsOrdered By: Twan Guerrero on 06-07-2023 Erythrocyte distribution width (RBC) [Entitic vol] 52.0 fL 35.1-43.9 [facility] Erythrocyte distribution width (RBC) [Ratio] 14.8 % 11.6-14.6 [facility] Immature granulocytes/100 WBC (Bld) 0.500 % 0.0-0.9 [facility] Comment on above: IG% - Immature Granu locytes (promyelocytes, myelocytes and metamyelocytes) > 1% indicates that a LEFT SHIFT is Present. MCH (RBC) [Entitic mass] 29.0 pg 27.0-32.0 [facility] Nucleated RBC/100 WBC (Bld) [Ratio] 0 % 0-5 [facility] MCHC Auto (RBC) [Mass/Vol]Or dered By: Twan Guerrero on 06-07-2023 MCHC (RBC) [Mass/Vol] 30.8 g/dL 32-36 [facility] Platelets bldOrdered By: Gisel Guerrero on 06-07-2023 Platelets (Bld) [#/Vol] 234 10*3/uL 150-450 [facility] Serum or plasma cholesterol in HDL measurement (mass/volume)Ordered By: Twan Guerrero on 06-07-2023 Cholesterol in HDL [Mass/Vol] 31 mg/dL >40 [facility] Comment on above: The drugs N-Acetylcy steine and Metamizole may falsely depress this assay. Reference Range HDL <40 mg/dL Low HDL Cholesterol HDL >or= 60 mg/dL High HDL Cholesterol Serum or plasma cholesterol in VLDL measurement (mass/volume)Ordered By: Twan Guerrero on 06-07-2023 Cholesterol in VLDL [Mass/Vol] 47 mg/dL 5-40 [facility] Serum or plasma low density lipoprotein (LDL) cholesterol measurement (mass/volume)Ordered By: Twan Guerrero on 06-07-2023 Cholesterol in LDL [Mass/Vol] 43 mg/dL 0-130 [facility] Absolute lymphocyte countOrd ered By: Twan Guerrero on 03-15-2023 Lymphocytes Auto (Unsp spec) [#/Vol] 2.21 10*3/uL 0.83-4.51 [facility] Basophil percentageOrdered B y: Twan Guerrero on 03-15-2023 Basophils/100 WBC (Bld) 0.5 % 0-1 [facility] Cholesterol [Mass/Vol] 105 mg/dL <200 [facility] Comment on above: <200 mg/dL Desirable 200-240 mg/dL Borderline >240 mg/dL High Risk Eosinophils/100 WBC (Bld) 1.7 % 0-5 [facility] Neutrophils (Bld) [#/Vol] 4.9 10*3/uL 2.0-7.7 [facility] Neutrophils/100 WBC (Bld) 61.2 % 47-70 [facility] Triglyceride [Mass/Vol] 174 mg/dL <199 [facility] Comment on above: The drugs N-Acetylcy steine and Metamizole may falsely depress this assay.Serum Triglycerides Reference Interval Normal <150 mg/dL Borderline high 150 - 199 mg/dL High 200 - 499 mg/dL Very High > or = 500 mg/dL WBC (Bld) [#/Vol] 8.1 10*3/uL 4.4-11.0 [facility] Blood erythrocytes count (nu mber/volume)Ordered By: Twan Guerrero on 03-15-2023 RBC (Bld) [#/Vol] 4.06 10*6/uL 4.2-5.4 [facility] Blood hemoglobin measurement (mass/volume)Ordered By: Twan Guerrero on 03-15-2023 Hemoglobin (Bld) [Mass/Vol] 11.8 g/dL 12.0-15.0 [facility] Blood lymphocytes/100 leukoc ytesOrdered By: Twan Guerrero on 03-15-2023 Lymphocytes/100 WBC (Bld) 27.5 % 19-41 [facility] Blood monocytes/100 leukocyt esOrdered By: Twan Guerrero on 03-15-2023 Monocytes/100 WBC (Bld) 8.7 % 0-10 [facility] Blood platelet mean volumeOr dered By: Twan Guerrero on 03-15-2023 Platelet mean volume (Bld) [Entitic vol] 10.8 fL 6.2-12.0 [facility] Determination of erythrocyte mean corpuscular volume (MCV)Ordered By: Twan Guerrero on 03-15-2023 MCV (RBC) [Entitic vol] 93.8 fL 81-99 [facility] Hematocrit Auto (Bld) [Volum e fraction]Ordered By: Twan Guerrero on 03-15-2023 Hematocrit (Bld) [Volume fraction] 38.1 % 37-47 [facility] Laboratory - Hematology and Cell countsOrdered By: Twan Guerrero on 03-15-2023 Erythrocyte distribution width (RBC) [Entitic vol] 52.6 fL 35.1-43.9 [facility] Erythrocyte distribution width (RBC) [Ratio] 15.0 % 11.6-14.6 [facility] Immature granulocytes/100 WBC (Bld) 0.400 % 0.0-0.9 [facility] Comment on above: IG% - Immature Granu locytes (promyelocytes, myelocytes and metamyelocytes) > 1% indicates that a LEFT SHIFT is Present. MCH (RBC) [Entitic mass] 29.1 pg 27.0-32.0 [facility] Nucleated RBC/100 WBC (Bld) [Ratio] 0 % 0-5 [facility] MCHC Auto (RBC) [Mass/Vol]Or dered By: Twan Guerrero on 03-15-2023 MCHC (RBC) [Mass/Vol] 31.0 g/dL 32-36 [facility] Platelets bldOrdered By: Gisel Guerrero on 03-15-2023 Platelets (Bld) [#/Vol] 247 10*3/uL 150-450 [facility] Serum or plasma cholesterol in HDL measurement (mass/volume)Ordered By: Twan Guerrero on 03-15-2023 Cholesterol in HDL [Mass/Vol] 34 mg/dL >40 [facility] Comment on above: The drugs N-Acetylcy steine and Metamizole may falsely depress this assay. Reference Range HDL <40 mg/dL Low HDL Cholesterol HDL >or= 60 mg/dL High HDL Cholesterol Serum or plasma cholesterol in VLDL measurement (mass/volume)Ordered By: Twan Guerrero on 03-15-2023 Cholesterol in VLDL [Mass/Vol] 35 mg/dL 5-40 [facility] Serum or plasma low density lipoprotein (LDL) cholesterol measurement (mass/volume)Ordered By: Twan Guerrero on 03-15-2023 Cholesterol in LDL [Mass/Vol] 36 mg/dL 0-130 [facility] Serum or plasma transthyreti n measurement (mass/volume)Ordered By: Twan Guerrero on 03-15-2023 Prealbumin [Mass/Vol] 23.4 mg/dL 20.0-40.0 [facility] No Panel InformationOrdered By: Twan Guerrero on 01-06-2023 CA 125 Antigen 13.8 U/mL 0.0-38.1 [facility] Comment on above: [employer] El ectrochemiluminescence Immunoassay(ECLIA)Values obtained with different assay methods or kits cannotbe used interchangeably. Results cannot be interpreted asabsolute evidence of the presence or absence of malignantdisease.Performed at: [address] [id number] Director: Boston Bradford PhD, Phone: [phone] Absolute lymphocyte countOrd ered By: Twan Guerrero on 12-14-2022 Lymphocytes Auto (Unsp spec) [#/Vol] 2.49 10*3/uL 0.83-4.51 [facility] Basophil percentageOrdered B y: Twan Guerrero on 12-14-2022 Basophils/100 WBC (Bld) 0.7 % 0-1 [facility] Cholesterol [Mass/Vol] 126 mg/dL <200 [facility] Comment on above: <200 mg/dL Desirable 200-240 mg/dL Borderline >240 mg/dL High Risk Eosinophils/100 WBC (Bld) 1.5 % 0-5 [facility] Neutrophils (Bld) [#/Vol] 3.5 10*3/uL 2.0-7.7 [facility] Neutrophils/100 WBC (Bld) 50.6 % 47-70 [facility] Triglyceride [Mass/Vol] 244 mg/dL <199 [facility] Comment on above: The drugs N-Acetylcy steine and Metamizole may falsely depress this assay.Serum Triglycerides Reference Interval Normal <150 mg/dL Borderline high 150 - 199 mg/dL High 200 - 499 mg/dL Very High > or = 500 mg/dL WBC (Bld) [#/Vol] 6.8 10*3/uL 4.4-11.0 [facility] Blood erythrocytes count (nu mber/volume)Ordered By: Twan Guerrero on 12-14-2022 RBC (Bld) [#/Vol] 4.12 10*6/uL 4.2-5.4 [facility] Blood hemoglobin measurement (mass/volume)Ordered By: Twan Guerrero on 12-14-2022 Hemoglobin (Bld) [Mass/Vol] 11.9 g/dL 12.0-15.0 [facility] Blood lymphocytes/100 leukoc ytesOrdered By: Twan Guerrero on 12-14-2022 Lymphocytes/100 WBC (Bld) 36.5 % 19-41 [facility] Blood monocytes/100 leukocyt esOrdered By: Twan Guerrero on 12-14-2022 Monocytes/100 WBC (Bld) 10.3 % 0-10 [facility] Blood platelet mean volumeOr dered By: Twan Guerrero on 12-14-2022 Platelet mean volume (Bld) [Entitic vol] 10.8 fL 6.2-12.0 [facility] Determination of erythrocyte mean corpuscular volume (MCV)Ordered By: Twan Guerrero on 12-14-2022 MCV (RBC) [Entitic vol] 94.4 fL 81-99 [facility] Hematocrit Auto (Bld) [Volum e fraction]Ordered By: Twan Guerrero on 12-14-2022 Hematocrit (Bld) [Volume fraction] 38.9 % 37-47 [facility] Laboratory - Hematology and Cell countsOrdered By: Twan Guerrero on 12-14-2022 Erythrocyte distribution width (RBC) [Entitic vol] 52.0 fL 35.1-43.9 [facility] Erythrocyte distribution width (RBC) [Ratio] 14.8 % 11.6-14.6 [facility] Immature granulocytes/100 WBC (Bld) 0.400 % 0.0-0.9 [facility] Comment on above: IG% - Immature Granu locytes (promyelocytes, myelocytes and metamyelocytes) > 1% indicates that a LEFT SHIFT is Present. MCH (RBC) [Entitic mass] 28.9 pg 27.0-32.0 [facility] Nucleated RBC/100 WBC (Bld) [Ratio] 0 % 0-5 [facility] MCHC Auto (RBC) [Mass/Vol]Or dered By: Twan Guerrero on 12-14-2022 MCHC (RBC) [Mass/Vol] 30.6 g/dL 32-36 [facility] Platelets bldOrdered By: Gisel Guerrero on 12-14-2022 Platelets (Bld) [#/Vol] 230 10*3/uL 150-450 [facility] Serum or plasma cholesterol in HDL measurement (mass/volume)Ordered By: Twan Guerrero on 12-14-2022 Cholesterol in HDL [Mass/Vol] 34 mg/dL >40 [facility] Comment on above: The drugs N-Acetylcy steine and Metamizole may falsely depress this assay. Reference Range HDL <40 mg/dL Low HDL Cholesterol HDL >or= 60 mg/dL High HDL Cholesterol Serum or plasma cholesterol in VLDL measurement (mass/volume)Ordered By: Twan Guerrero on 12-14-2022 Cholesterol in VLDL [Mass/Vol] 49 mg/dL 5-40 [facility] Serum or plasma low density lipoprotein (LDL) cholesterol measurement (mass/volume)Ordered By: Twan Guerrero on 12-14-2022 Cholesterol in LDL [Mass/Vol] 43 mg/dL 0-130 [facility] Culture, urineOrdered By: Ervin on 11-07-2022 Bacteria identified Cx Nom (U) Enterococcus faecalis [facility] Basophil percentageOrdered B y: Twan Guerrero on 10-27-2022 WBC (Bld) [#/Vol] 8.1 10*3/uL 4.4-11.0 [facility] Blood erythrocytes count (nu mber/volume)Ordered By: Twan Guerrero on 10-27-2022 RBC (Bld) [#/Vol] 4.02 10*6/uL 4.2-5.4 [facility] Blood hemoglobin measurement (mass/volume)Ordered By: Twan Guerrero on 10-27-2022 Hemoglobin (Bld) [Mass/Vol] 11.7 g/dL 12.0-15.0 [facility] Blood platelet mean volumeOr dered By: Twan Guerrero on 10-27-2022 Platelet mean volume (Bld) [Entitic vol] 10.7 fL 6.2-12.0 [facility] Determination of erythrocyte mean corpuscular volume (MCV)Ordered By: Twan Guerrero on 10-27-2022 MCV (RBC) [Entitic vol] 91.5 fL 81-99 [facility] Hematocrit Auto (Bld) [Volum e fraction]Ordered By: Twan Guerrero on 10-27-2022 Hematocrit (Bld) [Volume fraction] 36.8 % 37-47 [facility] Laboratory - Hematology and Cell countsOrdered By: Twan Guerrero on 10-27-2022 Erythrocyte distribution width (RBC) [Entitic vol] 51.2 fL 35.1-43.9 [facility] Erythrocyte distribution width (RBC) [Ratio] 15.0 % 11.6-14.6 [facility] MCH (RBC) [Entitic mass] 29.1 pg 27.0-32.0 [facility] MCHC Auto (RBC) [Mass/Vol]Or dered By: Twan Guerrero on 10-27-2022 MCHC (RBC) [Mass/Vol] 31.8 g/dL 32-36 [facility] Platelets bldOrdered By: Gisel Guerrero on 10-27-2022 Platelets (Bld) [#/Vol] 223 10*3/uL 150-450 [facility] Basophil percentageOrdered B y: Twan Guerrero on 10-26-2022 Basophil percentage 0-5 SEEN /hpf 0-5 [facility] Bilirubin Test strip Ql (U)O rdered By: Twan Guerrero on 10-26-2022 Bilirubin Ql (U) Negative Negative [facility] Ketones Test strip Ql (U)Ord ered By: Twan Guerrero on 10-26-2022 Ketones Ql (U) Negative Negative [facility] Mucus LM Ql (Urine sed)Order ed By: Twan Guerrero on 10-26-2022 Mucus Ql (Urine sed) 0 SEEN /hpf [facility] Nitrite Test strip Ql (U)Ord ered By: Twan Guerrero on 10-26-2022 Nitrite Ql (U) Negative Negative [facility] Protein Test strip Ql (U)Ord ered By: Twan Guerrero on 10-26-2022 Protein Ql (U) 30 mg/dl Negative [facility] Squamous epithelial cells de tection in urine sediment by light microscopyOrdered By: Twan Guerrero on 10-26-2022 Epithelial cells.squamous LM Ql (Urine sed) 0-5 SEEN /hpf 5-10 [facility] Urine blood detectionOrdered By: Twan Guerrero on 10-26-2022 RBC Ql (U) 250 /ul Negative [facility] RBC Ql (U) 25-50 SEEN /hpf 0-5 [facility] Urine clarityOrdered By: Gisel Guerrero on 10-26-2022 Clarity (U) Sl. Cloudy Clear [facility] Urine color determinationOrd ered By: Twan Guerrero on 10-26-2022 Color (U) Yellow Yellow [facility] Urine glucose detectionOrder ed By: Twan Guerrero on 10-26-2022 Glucose Ql (U) Normal mg/dl Normal [facility] Urine leukocyte esterase det ection by dipstickOrdered By: Twan Guerrero on 10-26-2022 Leukocyte esterase Test strip Ql (U) 25 /ul Negative [facility] Urine pHOrdered By: Twan esparza on 10-26-2022 pH (U) 8.0 [pH] 5.0 - 8.0 [facility] Urine sediment bacteria coun t by microscopy (number/high power field)Ordered By: Twan Guerrero on 10-26-2022 Bacteria LM.HPF (Urine sed) [#/Area] RARE /hpf None Seen [facility] Urine specific gravity measu rementOrdered By: Twan Guerrero on 10-26-2022 Specific gravity (U) [Rel density] 1.010 1.002-1.030 [facility] Urobilinogen Auto test strip Ql (U)Ordered By: Twan Guerrero on 10-26-2022 Urobilinogen Ql (U) Normal mg/dl Normal [facility] Absolute lymphocyte countOrd ered By: [facility] on 09-22-2022 Lymphocytes Auto (Unsp spec) [#/Vol] 2.92 10*3/uL 0.83-4.51 [facility] Basophil percentageOrdered B y: [facility] on 09-22-2022 Basophils/100 WBC (Bld) 0.2 % 0-1 [facility] Cholesterol [Mass/Vol] 132 mg/dL <200 [facility] Comment on above: <200 mg/dL Desirable 200-240 mg/dL Borderline >240 mg/dL High Risk Eosinophils/100 WBC (Bld) 1.3 % 0-5 [facility] Neutrophils (Bld) [#/Vol] 6.0 10*3/uL 2.0-7.7 [facility] Neutrophils/100 WBC (Bld) 60.9 % 47-70 [facility] Triglyceride [Mass/Vol] 202 mg/dL <199 [facility] Comment on above: The drugs N-Acetylcy steine and Metamizole may falsely depress this assay.Serum Triglycerides Reference Interval Normal <150 mg/dL Borderline high 150 - 199 mg/dL High 200 - 499 mg/dL Very High > or = 500 mg/dL WBC (Bld) [#/Vol] 9.8 10*3/uL 4.4-11.0 [facility] Blood erythrocytes count (nu mber/volume)Ordered By: [facility] on 09-22-2022 RBC (Bld) [#/Vol] 3.83 10*6/uL 4.2-5.4 [facility] Blood hemoglobin measurement (mass/volume)Ordered By: [facility] on 09-22-2022 Hemoglobin (Bld) [Mass/Vol] 11.4 g/dL 12.0-15.0 [facility] Blood lymphocytes/100 leukoc ytesOrdered By: [facility] on 09-22-2022 Lymphocytes/100 WBC (Bld) 29.7 % 19-41 [facility] Blood monocytes/100 leukocyt esOrdered By: [facility] on 09-22-2022 Monocytes/100 WBC (Bld) 7.6 % 0-10 [facility] Blood platelet mean volumeOr dered By: [facility] on 09-22-2022 Platelet mean volume (Bld) [Entitic vol] 10.6 fL 6.2-12.0 [facility] Culture, urineOrdered By: Dr Robb Mcintosh on 09-22-2022 Bacteria identified Cx Nom (U) Enterococcus faecalis [facility] Determination of erythrocyte mean corpuscular volume (MCV)Ordered By: [facility] on 09-22-2022 MCV (RBC) [Entitic vol] 93.2 fL 81-99 [facility] Hematocrit Auto (Bld) [Volum e fraction]Ordered By: [facility] on 09-22-2022 Hematocrit (Bld) [Volume fraction] 35.7 % 37-47 [facility] Laboratory - Hematology and Cell countsOrdered By: [facility] on 09-22-2022 Erythrocyte distribution width (RBC) [Entitic vol] 54.6 fL 35.1-43.9 [facility] Erythrocyte distribution width (RBC) [Ratio] 15.9 % 11.6-14.6 [facility] Immature granulocytes/100 WBC (Bld) 0.300 % 0.0-0.9 [facility] Comment on above: IG% - Immature Granu locytes (promyelocytes, myelocytes and metamyelocytes) > 1% indicates that a LEFT SHIFT is Present. MCH (RBC) [Entitic mass] 29.8 pg 27.0-32.0 [facility] Nucleated RBC/100 WBC (Bld) [Ratio] 0 % 0-5 [facility] MCHC Auto (RBC) [Mass/Vol]Or dered By: [facility] on 09-22-2022 MCHC (RBC) [Mass/Vol] 31.9 g/dL 32-36 [facility] Platelets bldOrdered By: [facility] on 09-22-2022 Platelets (Bld) [#/Vol] 198 10*3/uL 150-450 [facility] Serum or plasma cholesterol in HDL measurement (mass/volume)Ordered By: [facility] on 09-22-2022 Cholesterol in HDL [Mass/Vol] 35 mg/dL >40 [facility] Comment on above: The drugs N-Acetylcy steine and Metamizole may falsely depress this assay. Reference Range HDL <40 mg/dL Low HDL Cholesterol HDL >or= 60 mg/dL High HDL Cholesterol Serum or plasma cholesterol in VLDL measurement (mass/volume)Ordered By: [facility] on 09-22-2022 Cholesterol in VLDL [Mass/Vol] 40 mg/dL 5-40 [facility] Serum or plasma low density lipoprotein (LDL) cholesterol measurement (mass/volume)Ordered By: [facility] on 09-22-2022 Cholesterol in LDL [Mass/Vol] 57 mg/dL 0-130 [facility] Basophil percentageOrdered B y: Portillo Trujillo on 09-15-2022 Chloride [Moles/Vol] 111 mmol/L 98-[address] [facility] Glucose [Mass/Vol] 73 mg/dL 74-106 [facility] Potassium [Moles/Vol] 3.7 mmol/L 3.5-5.1 [facility] Sodium [Moles/Vol] 142 mmol/L 136-145 [facility] WBC (Bld) [#/Vol] 16.2 10*3/uL 4.4-11.0 [facility] Blood erythrocytes count (nu mber/volume)Ordered By: Portillo Trujillo on 09-15-2022 RBC (Bld) [#/Vol] 4.03 10*6/uL 4.2-5.4 [facility] Blood hemoglobin measurement (mass/volume)Ordered By: Portillo Trujillo on 09-15-2022 Hemoglobin (Bld) [Mass/Vol] 12.0 g/dL 12.0-15.0 [facility] Blood platelet mean volumeOr dered By: Portillo Trujillo on 09-15-2022 Platelet mean volume (Bld) [Entitic vol] 10.5 fL 6.2-12.0 [facility] Determination of erythrocyte mean corpuscular volume (MCV)Ordered By: Portillo Trujillo on 09-15-2022 MCV (RBC) [Entitic vol] 92.6 fL 81-99 [facility] Hematocrit Auto (Bld) [Volum e fraction]Ordered By: Portillo Trujillo on 09-15-2022 Hematocrit (Bld) [Volume fraction] 37.3 % 37-47 [facility] Laboratory - Chemistry and C hemistry - challengeOrdered By: Portillo Trujillo on 09-15-2022 CO2 [Moles/Vol] 22.0 mmol/L 21.0-32.0 [facility] Urea nitrogen/Creatinine [Mass ratio] 39.7 mg/mg 10-20 [facility] Laboratory - Hematology and Cell countsOrdered By: Portillo Trujillo on 09-15-2022 Erythrocyte distribution width (RBC) [Entitic vol] 53.1 fL 35.1-43.9 [facility] Erythrocyte distribution width (RBC) [Ratio] 15.5 % 11.6-14.6 [facility] MCH (RBC) [Entitic mass] 29.8 pg 27.0-32.0 [facility] MCHC Auto (RBC) [Mass/Vol]Or dered By: Portillo Trujillo on 09-15-2022 MCHC (RBC) [Mass/Vol] 32.2 g/dL 32-36 [facility] No Panel InformationOrdered By: Portillo Trujillo on 09-15-2022 Estimated GFR (MDRD) Amer 148 mL/min >60 [facility] Comment on above: GFR Calc Estimated GFR (MDRD) Non-Af Amer 122 mL/min >60 [facility] Comment on above: Non- GFR Calc Platelets bldOrdered By: Sekou Trujillo on 09-15-2022 Platelets (Bld) [#/Vol] 309 10*3/uL 150-450 [facility] Serum or plasma calcium nohelia urement (mass/volume)Ordered By: Portillo Trujillo on 09-15-2022 Calcium [Mass/Vol] 8.5 mg/dL 8.5-10.1 [facility] Serum or plasma creatinine m easurement (mass/volume)Ordered By: Portillo Trujillo on 09-15-2022 Creatinine [Mass/Vol] 0.53 mg/dL 0.55-1.02 [facility] Comment on above: The validity of the calculated GFR & GFRAA in patients over 70 years has not been determined. Clinical correlation is essential. Serum or plasma urea nitroge n measurement (mass/volume)Ordered By: Portillo Trujillo on 09-15-2022 Urea nitrogen [Mass/Vol] 21 mg/dL 7-18 [facility] Thin prep Papanicolaou smear with manual screeningOrdered By: Portillo Trujillo on 09-15-2022 Thin prep Papanicolaou smear with manual screening 9 5-15 [facility] Laboratory - Microbiology an d Antimicrobial susceptibilityOrdered By: Dr. Mcintosh on 09-13-2022 Bacteria identified Cx Nom (Bld) No growth in 5 days. [facility] Absolute lymphocyte countOrd ered By: Dr. Hodge on 09-09-2022 Lymphocytes Auto (Unsp spec) [#/Vol] 1.76 10*3/uL 0.83-4.51 [facility] Basophil percentageOrdered B y: Dr. Hodge on 09-09-2022 Basophils/100 WBC (Bld) 0.1 % 0-1 [facility] Eosinophils/100 WBC (Bld) 0.0 % 0-5 [facility] Neutrophils (Bld) [#/Vol] 4.8 10*3/uL 2.0-7.7 [facility] Neutrophils/100 WBC (Bld) 60.2 % 47-70 [facility] WBC (Bld) [#/Vol] 8.0 10*3/uL 4.4-11.0 [facility] Basophil percentageOrdered B y: Dr. Houston on 09-09-2022 Bilirubin [Mass/Vol] 0.20 mg/dL 0.20-1.[address] [facility] Comment on above: For patients on eltr ombopag therapy, use of Dimension [place] TBIL is not recommended. Chloride [Moles/Vol] 115 mmol/L 98-[address] [facility] Glucose [Mass/Vol] 101 mg/dL 74-106 [facility] Comment on above: Fasting Glucose resu lt from 100 to 125 mg/dL suggests IMPAIRED HOMEOSTASIS per A.D.A. criteria. Potassium [Moles/Vol] 4.0 mmol/L 3.5-5.1 [facility] Protein [Mass/Vol] 6.4 g/dL 6.4-8.2 [facility] Sodium [Moles/Vol] 144 mmol/L 136-145 [facility] Blood erythrocytes count (nu mber/volume)Ordered By: Dr. Hodge on 09-09-2022 RBC (Bld) [#/Vol] 3.90 10*6/uL 4.2-5.4 [facility] Blood hemoglobin measurement (mass/volume)Ordered By: Dr. Hodge on 09-09-2022 Hemoglobin (Bld) [Mass/Vol] 11.3 g/dL 12.0-15.0 [facility] Blood lymphocytes/100 leukoc ytesOrdered By: Dr. Hodge on 09-09-2022 Lymphocytes/100 WBC (Bld) 21.9 % 19-41 [facility] Blood monocytes/100 leukocyt esOrdered By: Dr. Hodge on 09-09-2022 Monocytes/100 WBC (Bld) 17.2 % 0-10 [facility] Blood platelet mean volumeOr dered By: Dr. Hodge on 09-09-2022 Platelet mean volume (Bld) [Entitic vol] 10.2 fL 6.2-12.0 [facility] Determination of erythrocyte mean corpuscular volume (MCV)Ordered By: Dr. Hodge on 09-09-2022 MCV (RBC) [Entitic vol] 94.4 fL 81-99 [facility] Hematocrit Auto (Bld) [Volum e fraction]Ordered By: Dr. Hodge on 09-09-2022 Hematocrit (Bld) [Volume fraction] 36.8 % 37-47 [facility] Laboratory - Chemistry and C hemistry - challengeOrdered By: Dr. Houston on 09-09-2022 ALP [Catalytic activity/Vol] 86 U/L 45-117 [facility] ALT [Catalytic activity/Vol] 44 U/L 13-56 [facility] CO2 [Moles/Vol] 25.0 mmol/L 21.0-32.0 [facility] Globulin (S) [Mass/Vol] 3.5 g/dL 2.2-4.2 [facility] Urea nitrogen/Creatinine [Mass ratio] 24.0 mg/mg 10-20 [facility] Laboratory - Hematology and Cell countsOrdered By: Dr. Hodge on 09-09-2022 Erythrocyte distribution width (RBC) [Entitic vol] 52.6 fL 35.1-43.9 [facility] Erythrocyte distribution width (RBC) [Ratio] 15.2 % 11.6-14.6 [facility] Immature granulocytes/100 WBC (Bld) 0.600 % 0.0-0.9 [facility] Comment on above: IG% - Immature Granu locytes (promyelocytes, myelocytes and metamyelocytes) > 1% indicates that a LEFT SHIFT is Present. MCH (RBC) [Entitic mass] 29.0 pg 27.0-32.0 [facility] Nucleated RBC/100 WBC (Bld) [Ratio] 0 % 0-5 [facility] MCHC Auto (RBC) [Mass/Vol]Or dered By: Dr. Hodge on 09-09-2022 MCHC (RBC) [Mass/Vol] 30.7 g/dL 32-36 [facility] No Panel InformationOrdered By: Dr. Houston on 09-09-2022 Estimated Creatinine Clearance Calc 43.18 ml/min [facility] Estimated GFR (MDRD) Amer 122 mL/min >60 [facility] Comment on above: GFR Calc Estimated GFR (MDRD) Non-Af Amer 101 mL/min >60 [facility] Comment on above: Non- GFR Calc Platelets bldOrdered By: Dr. Hodge on 09-09-2022 Platelets (Bld) [#/Vol] 223 10*3/uL 150-450 [facility] Serum or plasma albumin nohelia urement (mass/volume)Ordered By: Dr. Houston on 09-09-2022 Albumin [Mass/Vol] 2.9 g/dL 3.2-5.0 [facility] Serum or plasma albumin/glob ulin mass ratioOrdered By: Dr. Houston on 09-09-2022 Albumin/Globulin [Mass ratio] 0.8 {ratio} 0.9-2.4 [facility] Serum or plasma calcium nohelia urement (mass/volume)Ordered By: Dr. Houston on 09-09-2022 Calcium [Mass/Vol] 9.1 mg/dL 8.5-10.1 [facility] Serum or plasma creatinine m easurement (mass/volume)Ordered By: Dr. Houston on 09-09-2022 Creatinine [Mass/Vol] 0.62 mg/dL 0.55-1.02 [facility] Comment on above: The validity of the calculated GFR & GFRAA in patients over 70 years has not been determined. Clinical correlation is essential. Serum or plasma urea nitroge n measurement (mass/volume)Ordered By: Dr. Houston on 09-09-2022 Urea nitrogen [Mass/Vol] 15 mg/dL 7-18 [facility] Thin prep Papanicolaou smear with manual screeningOrdered By: Dr. Houston on 09-09-2022 Thin prep Papanicolaou smear with manual screening 24 U/L 15-37 [facility] Thin prep Papanicolaou smear with manual screening 4 5-15 [facility] Absolute lymphocyte counton 09-08-2022 Lymphocytes Auto (Unsp spec) [#/Vol] 0.79 10*3/uL 0.83-4.51 [facility] Work Phone: Amorphous sediment detection in urine sediment by light microscopyOrdered By: Dr. Mcintosh on 09-08-2022 Amorphous sediment LM Ql (Urine sed) 2+ [facility] Basophil percentageOrdered B y: Dr. Mcintosh on 09-08-2022 Basophil percentage 10-25 SEEN /hpf 0-5 [facility] Lactate [Moles/Vol] 1.9 mmol/L 0.4-2.0 [facility] Basophil percentageon 2021 Basophils/100 WBC (Bld) 0.2 % 0-1 [facility] Work Phone: Bilirubin [Mass/Vol] 0.30 mg/dL 0.20-1.[address] [facility] Work Phone: Comment on above: For patients on eltr ombopag therapy, use of Dimension [place] TBIL is not recommended. Chloride [Moles/Vol] 107 mmol/L 98-[address] [facility] Work Phone: Eosinophils/100 WBC (Bld) 0.1 % 0-5 [facility] Work Phone: Glucose [Mass/Vol] 156 mg/dL 74-106 [facility] Work Phone: Comment on above: Fasting Glucose resu lt greater than or equal to 126 mg/dL suggests DIABETES MELLITUS per A.D.A. criteria. Neutrophils (Bld) [#/Vol] 7.0 10*3/uL 2.0-7.7 [facility] Work Phone: Neutrophils/100 WBC (Bld) 77.9 % 47-70 [facility] Work Phone: Potassium [Moles/Vol] 3.4 mmol/L 3.5-5.1 [facility] Work Phone: Protein [Mass/Vol] 6.6 g/dL 6.4-8.2 [facility] Work Phone: Sodium [Moles/Vol] 139 mmol/L 136-145 [facility] Work Phone: WBC (Bld) [#/Vol] 8.9 10*3/uL 4.4-11.0 [facility] Work Phone: [phone] Bilirubin Test strip Ql (U)O rdered By: Dr. Mcintosh on 09-08-2022 Bilirubin Ql (U) Negative Negative [facility] Blood erythrocytes count (nu mber/volume)on 09-08-2022 RBC (Bld) [#/Vol] 3.94 10*6/uL 4.2-5.4 [facility] Work Phone: Blood hemoglobin measurement (mass/volume)on 09-08-2022 Hemoglobin (Bld) [Mass/Vol] 11.4 g/dL 12.0-15.0 [facility] Work Phone: Blood lymphocytes/100 leukoc yteson 09-08-2022 Lymphocytes/100 WBC (Bld) 8.8 % 19-41 [facility] Work Phone: Blood monocytes/100 leukocyt eson 09-08-2022 Monocytes/100 WBC (Bld) 12.3 % 0-10 [facility] Work Phone: Blood platelet mean volumeon 09-08-2022 Platelet mean volume (Bld) [Entitic vol] 10.0 fL 6.2-12.0 [facility] Work Phone: Determination of erythrocyte mean corpuscular volume (MCV)on 09-08-2022 MCV (RBC) [Entitic vol] 91.4 fL 81-99 [facility] Work Phone: Hematocrit Auto (Bld) [Volum e fraction]on 09-08-2022 Hematocrit (Bld) [Volume fraction] 36.0 % 37-47 [facility] Work Phone: INR in Blood by Coagulation assayOrdered By: Dr. Mcintosh on 09-08-2022 INR Coag (Bld) [Relative time] 1.1 {INR} [facility] Influenza virus A and B and SARS-CoV-2 (COVID-19) Ag panel - Upper respiratory specimOrdered By: Dr. Mcintosh on 09-08-2022 SARS-CoV-2 & FLU Antigen (Rapid) SARS-CoV-2 (COVID 19) [facility] Ketones Test strip Ql (U)Ord ered By: Dr. Mcintosh on 09-08-2022 Ketones Ql (U) Negative Negative [facility] Laboratory - Chemistry and C hemistry - challengeon 09-08-2022 ALP [Catalytic activity/Vol] 98 U/L 45-117 [facility] Work Phone: ALT [Catalytic activity/Vol] 52 U/L 13-56 [facility] Work Phone: CO2 [Moles/Vol] 25.0 mmol/L 21.0-32.0 [facility] Work Phone: Globulin (S) [Mass/Vol] 3.6 g/dL 2.2-4.2 [facility] Work Phone: Urea nitrogen/Creatinine [Mass ratio] 22.7 mg/mg 10-20 [facility] Work Phone: Laboratory - CoagulationOrde red By: Dr. Mcintosh on 09-08-2022 aPTT Coag (Bld) [Time] 30.5 s 24.1-36.2 [facility] PT Coag (PPP) [Time] 14.1 s 11.7-14.[address] [facility] Laboratory - Hematology and Cell countson 09-08-2022 Erythrocyte distribution width (RBC) [Entitic vol] 50.0 fL 35.1-43.9 [facility] Work Phone: [phone] Erythrocyte distribution width (RBC) [Ratio] 14.8 % 11.6-14.6 [facility] Work Phone: [phone] Immature granulocytes/100 WBC (Bld) 0.700 % 0.0-0.9 [facility] Work Phone: Comment on above: IG% - Immature Granu locytes (promyelocytes, myelocytes and metamyelocytes) > 1% indicates that a LEFT SHIFT is Present. MCH (RBC) [Entitic mass] 28.9 pg 27.0-32.0 [facility] Work Phone: [phone] Nucleated RBC/100 WBC (Bld) [Ratio] 0 % 0-5 [facility] Work Phone: [phone] MCHC Auto (RBC) [Mass/Vol]on 09-08-2022 MCHC (RBC) [Mass/Vol] 31.7 g/dL 32-36 [facility] Work Phone: Mucus LM Ql (Urine sed)Order ed By: Dr. Mcintosh on 09-08-2022 Mucus Ql (Urine sed) 0 SEEN /hpf [facility] Nitrite Test strip Ql (U)Ord ered By: Dr. Mcintosh on 09-08-2022 Nitrite Ql (U) Positive Negative [facility] No Panel InformationOrdered By: Dr. Mcintosh on 09-08-2022 D-Dimer Quantitative (PE/DVT) 0.68 FEU/ug/m 0.27-0.49 [facility] Comment on above: D-Dimer ELEVATED (>0 .49): Additional studies and clinicalassessments are indicated to conclude diagnosis of:Deep Vein Thrombosis (DVT) or Pulmonary Embolism (PE)CRITICAL VALUE VERIFIED. CALLED TO JEANIE PHAM11/09/21 1867 Jase Santos.RESULTS READ BACK BY SAME . Troponin I High Sensitivity 12 pg/mL 3.0-54.0 [facility] Comment on above: Please Note: [place] t Units and Gender Specific Reference Ranges. For more information see Policy Stat Procedure [place] High Sensitivity Troponin (TNIH) and attachments. No Panel Informationon 09-08 Estimated Creatinine Clearance Calc 51.11 ml/min [facility] Work Phone: Estimated GFR (MDRD) Amer 93 mL/min >60 [facility] Work Phone: Comment on above: GFR Calc Estimated GFR (MDRD) Non-Af Amer 77 mL/min >60 [facility] Work Phone: Comment on above: Non- GFR Calc Platelets bldon 09-08-2022 Platelets (Bld) [#/Vol] 224 10*3/uL 150-450 [facility] Work Phone: Protein Test strip Ql (U)Ord ered By: Dr. Mcintosh on 09-08-2022 Protein Ql (U) Negative Negative [facility] Serum or plasma C reactive p rotein measurement (mass/volume)Ordered By: Dr. Houston on 09-08-2022 CRP [Mass/Vol] 13.30 mg/L 0.0-3.0 [facility] Comment on above: C-Reactive Protein ( CRP) provides useful information for thediagnosis, therapy and monitoring of inflammatory processesand associated diseases. For the evaluation of Relative Riskfor Cardiovascular Disease, a High Sensitivity CRP (HSCRP)should be ordered. Serum or plasma albumin nohelia urement (mass/volume)on 09-08-2022 Albumin [Mass/Vol] 3.0 g/dL 3.2-5.0 [facility] Work Phone: Serum or plasma albumin/glob ulin mass ratioon 09-08-2022 Albumin/Globulin [Mass ratio] 0.8 {ratio} 0.9-2.4 [facility] Work Phone: Serum or plasma calcium nohelia urement (mass/volume)on 09-08-2022 Calcium [Mass/Vol] 8.4 mg/dL 8.5-10.1 [facility] Work Phone: Serum or plasma creatinine m easurement (mass/volume)on 09-08-2022 Creatinine [Mass/Vol] 0.79 mg/dL 0.55-1.02 [facility] Work Phone: Comment on above: The validity of the calculated GFR & GFRAA in patients over 70 years has not been determined. Clinical correlation is essential. Serum or plasma urea nitroge n measurement (mass/volume)on 09-08-2022 Urea nitrogen [Mass/Vol] 18 mg/dL 7-18 [facility] Work Phone: Serum procalcitonin measurem entOrdered By: Dr. Hodge on 09-08-2022 Procalcitonin [Mass/Vol] 0.09 ng/mL 0.00-0.09 [facility] Comment on above: A procalcitonin (PCT ) level above 2.0 ng/mL on the first day of ICU admission is associated with a high risk for progression to severe sepsis and/or septic shock. A PCT level below 0.5 ng/mL on the first day of ICU admission is associated with a low risk for progression to severe and/or septic shock. Note: Concentrations <0.5 ng/mL do not exclude an infection on account of localized infections (without systemic signs) which can be associated with such low concentrations, or a systemic infection in its initial stages (<6 hours). Furthermore, increased procalcitonin can occur without infection. PCT concentrations between 0.5 and 2.0 ng/mL should be interpreted taking into account the patient's history. It is recommended to retest PCT within 6-24 hours if any concentrations <2 ng/mL are obtained. Squamous epithelial cells de tection in urine sediment by light microscopyOrdered By: Dr. Mcintosh on 09-08-2022 Epithelial cells.squamous LM Ql (Urine sed) 0-5 SEEN /hpf 5-10 [facility] Thin prep Papanicolaou smear with manual screeningon 09-08-2022 Thin prep Papanicolaou smear with manual screening 31 U/L 15-37 [facility] Work Phone: Thin prep Papanicolaou smear with manual screening 7 5-15 [facility] Work Phone: Urine blood detectionOrdered By: Dr. Mcintosh on 09-08-2022 RBC Ql (U) 10 /ul Negative [facility] RBC Ql (U) 0-5 SEEN /hpf 0-5 [facility] Urine clarityOrdered By: Dr. Mcintosh on 09-08-2022 Clarity (U) Sl. Cloudy Clear [facility] Urine color determinationOrd ered By: Dr. Mcintosh on 09-08-2022 Color (U) Yellow Yellow [facility] Urine glucose detectionOrder ed By: Dr. Mcintosh on 09-08-2022 Glucose Ql (U) Normal mg/dl Normal [facility] Urine leukocyte esterase det ection by dipstickOrdered By: Dr. Mcintosh on 09-08-2022 Leukocyte esterase Test strip Ql (U) 100 /ul Negative [facility] Urine pHOrdered By: Dr. Rod georges on 09-08-2022 pH (U) 7.0 [pH] 5.0 - 8.0 [facility] Urine sediment bacteria coun t by microscopy (number/high power field)Ordered By: Dr. Mcintosh on 09-08-2022 Bacteria LM.HPF (Urine sed) [#/Area] 2 /[HPF] None Seen [facility] Urine specific gravity measu rementOrdered By: Dr. Mcintosh on 09-08-2022 Specific gravity (U) [Rel density] 1.005 1.002-1.030 [facility] Urobilinogen Auto test strip Ql (U)Ordered By: Dr. Mcintosh on 09-08-2022 Urobilinogen Ql (U) Normal mg/dl Normal [facility] Progress Noteon 09-02-2022 Progress Note Patient with severe MS and neurogenic bladder with indwelling catheter has been doing pretty well. However had a 24-hour viral bug with nausea and vomiting. That has resolved. No recurrent pain or nausea. No heartburn. No melena or blood. Bowels are regular. Urine catheter has been well. No change neurologically. Vital signs stable. Alert and pleasant. Well-hydrated. Nonicteric. No JVD. Heart is regular without ectopy. Lungs are clear. Abdomen soft protuberant without pain hepatosplenomegaly or masses. Good bowel sounds. Certainly no guarding rigidity or rebound tenderness. Extremities are pink without edema. No new labs. 1. Viral gastroenteritis Resolved gastroenteritis. Progress diet as tolerated. 2. Multiple sclerosis (CMS/HCC) (HCC) Stable, continue current meds including baclofen, Flexeril, gabapentin and [place] 3. Neurogenic bladder Stable, continue Hopkins catheter irrigation cranberry pills Normal [facility] Basophil percentageOrdered B y: Portillo Trujillo on 08-04-2022 Chloride [Moles/Vol] 106 mmol/L 98-[address] [facility] Glucose [Mass/Vol] 140 mg/dL 74-106 [facility] Comment on above: Fasting Glucose resu lt greater than or equal to 126 mg/dL suggests DIABETES MELLITUS per A.D.A. criteria. Potassium [Moles/Vol] 3.9 mmol/L 3.5-5.1 [facility] Sodium [Moles/Vol] 139 mmol/L 136-145 [facility] WBC (Bld) [#/Vol] 9.6 10*3/uL 4.4-11.0 [facility] Blood erythrocytes count (nu mber/volume)Ordered By: Portillo Trujillo on 08-04-2022 RBC (Bld) [#/Vol] 4.34 10*6/uL 4.2-5.4 [facility] Blood hemoglobin measurement (mass/volume)Ordered By: Portillo Trujillo on 08-04-2022 Hemoglobin (Bld) [Mass/Vol] 12.6 g/dL 12.0-15.0 [facility] Blood platelet mean volumeOr dered By: Portillo Trujillo on 08-04-2022 Platelet mean volume (Bld) [Entitic vol] 10.4 fL 6.2-12.0 [facility] Determination of erythrocyte mean corpuscular volume (MCV)Ordered By: Portillo Trujillo on 08-04-2022 MCV (RBC) [Entitic vol] 91.7 fL 81-99 [facility] Hematocrit Auto (Bld) [Volum e fraction]Ordered By: Portillo Trujillo on 08-04-2022 Hematocrit (Bld) [Volume fraction] 39.8 % 37-47 [facility] Laboratory - Chemistry and C hemistry - challengeOrdered By: Portillo Trujillo on 08-04-2022 CO2 [Moles/Vol] 25.0 mmol/L 21.0-32.0 [facility] Urea nitrogen/Creatinine [Mass ratio] 17.8 mg/mg 10- [facility] Laboratory - Hematology and Cell countsOrdered By: Portillo Trujillo on 08-04-2022 Erythrocyte distribution width (RBC) [Entitic vol] 48.4 fL 35.1-43.9 [facility] Erythrocyte distribution width (RBC) [Ratio] 14.3 % 11.6-14.6 [facility] MCH (RBC) [Entitic mass] 29.0 pg 27.0-32.0 [facility] MCHC Auto (RBC) [Mass/Vol]Or dered By: Portillo Trujillo on 08-04-2022 MCHC (RBC) [Mass/Vol] 31.7 g/dL 32-36 [facility] No Panel InformationOrdered By: Portillo Trujillo on 08-04-2022 Estimated GFR (MDRD) Amer 124 mL/min >60 [facility] Comment on above: GFR Calc Estimated GFR (MDRD) Non-Af Amer 102 mL/min >60 [facility] Comment on above: Non- GFR Calc Platelets bldOrdered By: Sekou Trujillo on 08-04-2022 Platelets (Bld) [#/Vol] 224 10*3/uL 150-450 [facility] Serum or plasma calcium nohelia urement (mass/volume)Ordered By: Portillo Trujillo on 08-04-2022 Calcium [Mass/Vol] 8.2 mg/dL 8.5-10.1 [facility] Serum or plasma creatinine m easurement (mass/volume)Ordered By: Portillo Trujillo on 08-04-2022 Creatinine [Mass/Vol] 0.62 mg/dL 0.55-1.02 [facility] Comment on above: The validity of the calculated GFR & GFRAA in patients over 70 years has not been determined. Clinical correlation is essential. Serum or plasma urea nitroge n measurement (mass/volume)Ordered By: Portillo Trujillo on 08-04-2022 Urea nitrogen [Mass/Vol] 11 mg/dL 7-18 [facility] Thin prep Papanicolaou smear with manual screeningOrdered By: Portillo Trujillo on 08-04-2022 Thin prep Papanicolaou smear with manual screening 8 -15 [facility] Progress Noteon 07-29-2022 Progress Note See Scanned Progress Notes Normal [facility] Absolute lymphocyte counton 06-29-2022 Lymphocytes Auto (Unsp spec) [#/Vol] 2.37 10*3/uL 0.83-4.51 [facility] Work Phone: [phone] Basophil percentageon 2021 Basophils/100 WBC (Bld) 0.6 % 0-1 [facility] Work Phone: Cholesterol [Mass/Vol] 127 mg/dL <200 [facility] Work Phone: Comment on above: <200 mg/dL Desirable 200-240 mg/dL Borderline >240 mg/dL High Risk Eosinophils/100 WBC (Bld) 1.5 % 0-5 [facility] Work Phone: [phone] Neutrophils (Bld) [#/Vol] 5.1 10*3/uL 2.0-7.7 [facility] Work Phone: [phone] Neutrophils/100 WBC (Bld) 60.2 % 47-70 [facility] Work Phone: Triglyceride [Mass/Vol] 223 mg/dL <199 [facility] Work Phone: Comment on above: The drugs N-Acetylcy steine and Metamizole may falsely depress this assay.Serum Triglycerides Reference Interval Normal <150 mg/dL Borderline high 150 - 199 mg/dL High 200 - 499 mg/dL Very High > or = 500 mg/dL WBC (Bld) [#/Vol] 8.4 10*3/uL 4.4-11.0 [facility] Work Phone: Blood erythrocytes count (nu mber/volume)on 06-29-2022 RBC (Bld) [#/Vol] 3.89 10*6/uL 4.2-5.4 [facility] Work Phone: Blood hemoglobin measurement (mass/volume)on 06-29-2022 Hemoglobin (Bld) [Mass/Vol] 11.5 g/dL 12.0-15.0 [facility] Work Phone: Blood lymphocytes/100 leukoc yteson 06-29-2022 Lymphocytes/100 WBC (Bld) 28.2 % 19-41 [facility] Work Phone: Blood monocytes/100 leukocyt eson 06-29-2022 Monocytes/100 WBC (Bld) 9.3 % 0-10 [facility] Work Phone: Blood platelet mean volumeon 06-29-2022 Platelet mean volume (Bld) [Entitic vol] 11.0 fL 6.2-12.0 [facility] Work Phone: Determination of erythrocyte mean corpuscular volume (MCV)on 06-29-2022 MCV (RBC) [Entitic vol] 94.3 fL 81-99 [facility] Work Phone: Hematocrit Auto (Bld) [Volum e fraction]on 06-29-2022 Hematocrit (Bld) [Volume fraction] 36.7 % 37-47 [facility] Work Phone: [phone] Laboratory - Hematology and Cell countson 06-29-2022 Erythrocyte distribution width (RBC) [Entitic vol] 51.4 fL 35.1-43.9 [facility] Work Phone: [phone] Erythrocyte distribution width (RBC) [Ratio] 14.7 % 11.6-14.6 [facility] Work Phone: Immature granulocytes/100 WBC (Bld) 0.200 % 0.0-0.9 [facility] Work Phone: Comment on above: IG% - Immature Granu locytes (promyelocytes, myelocytes and metamyelocytes) > 1% indicates that a LEFT SHIFT is Present. MCH (RBC) [Entitic mass] 29.6 pg 27.0-32.0 [facility] Work Phone: Nucleated RBC/100 WBC (Bld) [Ratio] 0 % 0-5 [facility] Work Phone: MCHC Auto (RBC) [Mass/Vol]on 06-29-2022 MCHC (RBC) [Mass/Vol] 31.3 g/dL 32-36 [facility] Work Phone: [phone] Platelets bldon 06-29-2022 Platelets (Bld) [#/Vol] 232 10*3/uL 150-450 [facility] Work Phone: [phone] Serum or plasma cholesterol in HDL measurement (mass/volume)on 06-29-2022 Cholesterol in HDL [Mass/Vol] 33 mg/dL >40 [facility] Work Phone: [phone] Comment on above: The drugs N-Acetylcy steine and Metamizole may falsely depress this assay. Reference Range HDL <40 mg/dL Low HDL Cholesterol HDL >or= 60 mg/dL High HDL Cholesterol Serum or plasma cholesterol in VLDL measurement (mass/volume)on 06-29-2022 Cholesterol in VLDL [Mass/Vol] 45 mg/dL 5-40 [facility] Work Phone: [phone] Serum or plasma low density lipoprotein (LDL) cholesterol measurement (mass/volume)on 06-29-2022 Cholesterol in LDL [Mass/Vol] 49 mg/dL 0-130 [facility] Work Phone: [phone] Amorphous sediment detection in urine sediment by light microscopyon 06-26-2022 Amorphous sediment LM Ql (Urine sed) 2+ [facility] Work Phone: [phone] Basophil percentageon 2021 Basophil percentage 0-5 SEEN /hpf 0-5 [facility] Work Phone: [phone] Bilirubin Test strip Ql (U)o n 06-26-2022 Bilirubin Ql (U) Negative Negative [facility] Work Phone: [phone] Calcium oxalate crystals det ection in urine sediment by light microscopyon 06-26-2022 Calcium oxalate crystals LM Ql (Urine sed) RARE /hpf [facility] Work Phone: Ketones Test strip Ql (U)on 06-26-2022 Ketones Ql (U) Negative Negative [facility] Work Phone: [phone] Mucus LM Ql (Urine sed)on Mucus Ql (Urine sed) 0 SEEN /hpf [facility] Work Phone: Nitrite Test strip Ql (U)on 06-26-2022 Nitrite Ql (U) Positive Negative [facility] Work Phone: [phone] Protein Test strip Ql (U)on 06-26-2022 Protein Ql (U) Negative Negative [facility] Work Phone: [phone] Squamous epithelial cells de tection in urine sediment by light microscopyon 06-26-2022 Epithelial cells.squamous LM Ql (Urine sed) 0-5 SEEN /hpf 5-10 [facility] Work Phone: [phone] Urine blood detectionon RBC Ql (U) Negative Negative [facility] Work Phone: [phone] RBC Ql (U) 0 SEEN /hpf 0-5 [facility] Work Phone: Urine clarityon 06-26-2022 Clarity (U) Sl. Cloudy Clear [facility] Work Phone: [phone] Urine color determinationon 06-26-2022 Color (U) Yellow Yellow [facility] Work Phone: [phone] Urine glucose detectionon Glucose Ql (U) Normal mg/dl Normal [facility] Work Phone: Urine leukocyte esterase det ection by dipstickon 06-26-2022 Leukocyte esterase Test strip Ql (U) 500 /ul Negative [facility] Work Phone: [phone] Urine pHon 06-26-2022 pH (U) 8.0 [pH] 5.0 - 8.0 [facility] Work Phone: [phone] Urine sediment bacteria coun t by microscopy (number/high power field)on 06-26-2022 Bacteria LM.HPF (Urine sed) [#/Area] 0 /[HPF] None Seen [facility] Work Phone: [phone] Urine specific gravity measu rementon 06-26-2022 Specific gravity (U) [Rel density] 1.015 1.002-1.030 [facility] Work Phone: Urobilinogen Auto test strip Ql (U)on 06-26-2022 Urobilinogen Ql (U) Normal mg/dl Normal [facility] Work Phone: CONFIRM BLOOD TYPEon 022 ABO A [facility] Rh Nom (Bld) Positive [facility] Absolute lymphocyte counton 04-06-2022 Lymphocytes Auto (Unsp spec) [#/Vol] 2.67 10*3/uL 0.83-4.51 [facility] Work Phone: Basophil percentageon 2021 Basophils/100 WBC (Bld) 0.5 % 0-1 [facility] Work Phone: Cholesterol [Mass/Vol] 157 mg/dL <200 [facility] Work Phone: Comment on above: <200 mg/dL Desirable 200-240 mg/dL Borderline >240 mg/dL High Risk Eosinophils/100 WBC (Bld) 1.7 % 0-5 [facility] Work Phone: Neutrophils (Bld) [#/Vol] 3.8 10*3/uL 2.0-7.7 [facility] Work Phone: [phone] Neutrophils/100 WBC (Bld) 51.2 % 47-70 [facility] Work Phone: Triglyceride [Mass/Vol] 266 mg/dL <199 [facility] Work Phone: Comment on above: The drugs N-Acetylcy steine and Metamizole may falsely depress this assay.Serum Triglycerides Reference Interval Normal <150 mg/dL Borderline high 150 - 199 mg/dL High 200 - 499 mg/dL Very High > or = 500 mg/dL WBC (Bld) [#/Vol] 7.5 10*3/uL 4.4-11.0 [facility] Work Phone: Blood erythrocytes count (nu mber/volume)on 04-06-2022 RBC (Bld) [#/Vol] 4.08 10*6/uL 4.2-5.4 [facility] Work Phone: Blood hemoglobin measurement (mass/volume)on 04-06-2022 Hemoglobin (Bld) [Mass/Vol] 12.0 g/dL 12.0-15.0 [facility] Work Phone: Blood lymphocytes/100 leukoc yteson 04-06-2022 Lymphocytes/100 WBC (Bld) 35.6 % 19-41 [facility] Work Phone: Blood monocytes/100 leukocyt eson 04-06-2022 Monocytes/100 WBC (Bld) 10.5 % 0-10 [facility] Work Phone: [phone] Blood platelet mean volumeon 04-06-2022 Platelet mean volume (Bld) [Entitic vol] 11.0 fL 6.2-12.0 [facility] Work Phone: [phone] Determination of erythrocyte mean corpuscular volume (MCV)on 04-06-2022 MCV (RBC) [Entitic vol] 93.9 fL 81-99 [facility] Work Phone: [phone] Hematocrit Auto (Bld) [Volum e fraction]on 04-06-2022 Hematocrit (Bld) [Volume fraction] 38.3 % 37-47 [facility] Work Phone: [phone] Laboratory - Hematology and Cell countson 04-06-2022 Erythrocyte distribution width (RBC) [Entitic vol] 51.8 fL 35.1-43.9 [facility] Work Phone: [phone] Erythrocyte distribution width (RBC) [Ratio] 14.9 % 11.6-14.6 [facility] Work Phone: [phone] Immature granulocytes/100 WBC (Bld) 0.500 % 0.0-0.9 [facility] Work Phone: [phone] Comment on above: IG% - Immature Granu locytes (promyelocytes, myelocytes and metamyelocytes) > 1% indicates that a LEFT SHIFT is Present. MCH (RBC) [Entitic mass] 29.4 pg 27.0-32.0 [facility] Work Phone: [phone] Nucleated RBC/100 WBC (Bld) [Ratio] 0 % 0-5 [facility] Work Phone: [phone] MCHC Auto (RBC) [Mass/Vol]on 04-06-2022 MCHC (RBC) [Mass/Vol] 31.3 g/dL 32-36 [facility] Work Phone: [phone] Platelets bldon 04-06-2022 Platelets (Bld) [#/Vol] 247 10*3/uL 150-450 [facility] Work Phone: [phone] Serum or plasma cholesterol in HDL measurement (mass/volume)on 04-06-2022 Cholesterol in HDL [Mass/Vol] 35 mg/dL >40 [facility] Work Phone: [phone] Comment on above: The drugs N-Acetylcy steine and Metamizole may falsely depress this assay. Reference Range HDL <40 mg/dL Low HDL Cholesterol HDL >or= 60 mg/dL High HDL Cholesterol Serum or plasma cholesterol in VLDL measurement (mass/volume)on 04-06-2022 Cholesterol in VLDL [Mass/Vol] 53 mg/dL 5-40 [facility] Work Phone: [phone] Serum or plasma low density lipoprotein (LDL) cholesterol measurement (mass/volume)on 04-06-2022 Cholesterol in LDL [Mass/Vol] 69 mg/dL 0-130 [facility] Work Phone: Laboratory - Chemistry and C hemistry - challengeon 04-01-2022 ALT [Catalytic activity/Vol] 47 U/L 13-56 [facility] Work Phone: [phone] Thin prep Papanicolaou smear with manual screeningon 04-01-2022 Thin prep Papanicolaou smear with manual screening 24 U/L 15-37 [facility] Work Phone: Absolute lymphocyte counton 02-23-2022 Lymphocytes Auto (Unsp spec) [#/Vol] 2.40 10*3/uL 0.83-4.51 [facility] Work Phone: Basophil percentageon 2021 Basophil percentage 50-100 SEEN /hpf 0-5 [facility] Work Phone: Basophils/100 WBC (Bld) 0.6 % 0-1 [facility] Work Phone: Eosinophils/100 WBC (Bld) 1.9 % 0-5 [facility] Work Phone: Neutrophils (Bld) [#/Vol] 3.9 10*3/uL 2.0-7.7 [facility] Work Phone: Neutrophils/100 WBC (Bld) 54.6 % 47-70 [facility] Work Phone: WBC (Bld) [#/Vol] 7.2 10*3/uL 4.4-11.0 [facility] Work Phone: Bilirubin Test strip Ql (U)o n 02-23-2022 Bilirubin Ql (U) Negative Negative [facility] Work Phone: Blood erythrocytes count (nu mber/volume)on 02-23-2022 RBC (Bld) [#/Vol] 3.74 10*6/uL 4.2-5.4 [facility] Work Phone: Blood hemoglobin measurement (mass/volume)on 02-23-2022 Hemoglobin (Bld) [Mass/Vol] 11.1 g/dL 12.0-15.0 [facility] Work Phone: Blood lymphocytes/100 leukoc yteson 02-23-2022 Lymphocytes/100 WBC (Bld) 33.2 % 19-41 [facility] Work Phone: Blood monocytes/100 leukocyt eson 02-23-2022 Monocytes/100 WBC (Bld) 9.1 % 0-10 [facility] Work Phone: Blood platelet mean volumeon 02-23-2022 Platelet mean volume (Bld) [Entitic vol] 10.8 fL 6.2-12.0 [facility] Work Phone: Determination of erythrocyte mean corpuscular volume (MCV)on 02-23-2022 MCV (RBC) [Entitic vol] 94.9 fL 81-99 [facility] Work Phone: Hematocrit Auto (Bld) [Volum e fraction]on 02-23-2022 Hematocrit (Bld) [Volume fraction] 35.5 % 37-47 [facility] Work Phone: [phone] Ketones Test strip Ql (U)on 02-23-2022 Ketones Ql (U) Negative Negative [facility] Work Phone: [phone] Laboratory - Hematology and Cell countson 02-23-2022 Erythrocyte distribution width (RBC) [Entitic vol] 52.6 fL 35.1-43.9 [facility] Work Phone: [phone] Erythrocyte distribution width (RBC) [Ratio] 15.0 % 11.6-14.6 [facility] Work Phone: [phone] Immature granulocytes/100 WBC (Bld) 0.600 % 0.0-0.9 [facility] Work Phone: [phone] Comment on above: IG% - Immature Granu locytes (promyelocytes, myelocytes and metamyelocytes) > 1% indicates that a LEFT SHIFT is Present. MCH (RBC) [Entitic mass] 29.7 pg 27.0-32.0 [facility] Work Phone: Nucleated RBC/100 WBC (Bld) [Ratio] 0 % 0-5 [facility] Work Phone: [phone] MCHC Auto (RBC) [Mass/Vol]on 02-23-2022 MCHC (RBC) [Mass/Vol] 31.3 g/dL 32-36 [facility] Work Phone: Mucus LM Ql (Urine sed)on Mucus Ql (Urine sed) 0 SEEN /hpf [facility] Work Phone: Nitrite Test strip Ql (U)on 02-23-2022 Nitrite Ql (U) Positive Negative [facility] Work Phone: Platelets bldon 02-23-2022 Platelets (Bld) [#/Vol] 238 10*3/uL 150-450 [facility] Work Phone: Protein Test strip Ql (U)on 06-06-2022 Protein Ql (U) 30 mg/dl Negative [facility] Work Phone: Squamous epithelial cells de tection in urine sediment by light microscopyon 02-23-2022 Epithelial cells.squamous LM Ql (Urine sed) 0 SEEN /hpf 5-10 [facility] Work Phone: Urine blood detectionon -0 RBC Ql (U) 150 /ul Negative [facility] Work Phone: [phone] RBC Ql (U) 0 SEEN /hpf 0-5 [facility] Work Phone: Urine clarityon 02-23-2022 Clarity (U) Cloudy Clear [facility] Work Phone: Urine color determinationon 02-23-2022 Color (U) Yellow Yellow [facility] Work Phone: Urine glucose detectionon Glucose Ql (U) Normal mg/dl Normal [facility] Work Phone: [phone] Urine leukocyte esterase det ection by dipstickon 02-23-2022 Leukocyte esterase Test strip Ql (U) 500 /ul Negative [facility] Work Phone: [phone] Urine pHon 02-23-2022 pH (U) 6.5 [pH] 5.0 - 8.0 [facility] Work Phone: Urine sediment bacteria coun t by microscopy (number/high power field)on 02-23-2022 Bacteria LM.HPF (Urine sed) [#/Area] 4 /[HPF] None Seen [facility] Work Phone: [phone] Urine specific gravity measu rementon 02-23-2022 Specific gravity (U) [Rel density] 1.010 1.002-1.030 [facility] Work Phone: [phone] Urobilinogen Auto test strip Ql (U)on 02-23-2022 Urobilinogen Ql (U) Normal mg/dl Normal [facility] Work Phone: [phone] Basophil percentageon 2021 Bilirubin [Mass/Vol] 0.30 mg/dL 0.20-1.[address] [facility] Work Phone: Comment on above: For patients on eltr ombopag therapy, use of Dimension [place] TBIL is not recommended. Chloride [Moles/Vol] 109 mmol/L 98-[address] [facility] Work Phone: Glucose [Mass/Vol] 107 mg/dL 74-106 [facility] Work Phone: Comment on above: Fasting Glucose resu lt from 100 to 125 mg/dL suggests IMPAIRED HOMEOSTASIS per A.D.A. criteria. Potassium [Moles/Vol] 4.0 mmol/L 3.5-5.1 [facility] Work Phone: Protein [Mass/Vol] 6.5 g/dL 6.4-8.2 [facility] Work Phone: Sodium [Moles/Vol] 143 mmol/L 136-145 [facility] Work Phone: Laboratory - Chemistry and C hemistry - challengeon 02-18-2022 ALP [Catalytic activity/Vol] 86 U/L 45-117 [facility] Work Phone: ALT [Catalytic activity/Vol] 41 U/L 13-56 [facility] Work Phone: CO2 [Moles/Vol] 25.0 mmol/L 21.0-32.0 [facility] Work Phone: Globulin (S) [Mass/Vol] 3.3 g/dL 2.2-4.2 [facility] Work Phone: Urea nitrogen/Creatinine [Mass ratio] 21.8 mg/mg 10-20 [facility] Work Phone: No Panel Informationon 02-18 Estimated GFR (MDRD) Amer 119 mL/min >60 [facility] Work Phone: Comment on above: GFR Calc Estimated GFR (MDRD) Non-Af Amer 98 mL/min >60 [facility] Work Phone: Comment on above: Non- GFR Calc Serum or plasma albumin nohelia urement (mass/volume)on 02-18-2022 Albumin [Mass/Vol] 3.2 g/dL 3.2-5.0 [facility] Work Phone: Serum or plasma albumin/glob ulin mass ratioon 02-18-2022 Albumin/Globulin [Mass ratio] 1.0 {ratio} 0.9-2.4 [facility] Work Phone: Serum or plasma calcium nohelia urement (mass/volume)on 02-18-2022 Calcium [Mass/Vol] 8.8 mg/dL 8.5-10.1 [facility] Work Phone: Serum or plasma creatinine m easurement (mass/volume)on 02-18-2022 Creatinine [Mass/Vol] 0.64 mg/dL 0.55-1.02 [facility] Work Phone: Comment on above: The validity of the calculated GFR & GFRAA in patients over 70 years has not been determined. Clinical correlation is essential. Serum or plasma urea nitroge n measurement (mass/volume)on 02-18-2022 Urea nitrogen [Mass/Vol] 14 mg/dL 7-18 [facility] Work Phone: Thin prep Papanicolaou smear with manual screeningon 02-18-2022 Thin prep Papanicolaou smear with manual screening 21 U/L 15-37 [facility] Work Phone: Thin prep Papanicolaou smear with manual screening 9 5-15 [facility] Work Phone: Absolute lymphocyte counton 01-12-2022 Lymphocytes Auto (Unsp spec) [#/Vol] 2.71 10*3/uL 0.83-4.51 [facility] Work Phone: Basophil percentageon 2021 Basophils/100 WBC (Bld) 0.9 % 0-1 [facility] Work Phone: Cholesterol [Mass/Vol] 130 mg/dL <200 [facility] Work Phone: Comment on above: <200 mg/dL Desirable 200-240 mg/dL Borderline >240 mg/dL High Risk Eosinophils/100 WBC (Bld) 4.0 % 0-5 [facility] Work Phone: Neutrophils (Bld) [#/Vol] 2.9 10*3/uL 2.0-7.7 [facility] Work Phone: Neutrophils/100 WBC (Bld) 44.9 % 47-70 [facility] Work Phone: [phone] Triglyceride [Mass/Vol] 222 mg/dL <199 [facility] Work Phone: [phone] Comment on above: The drugs N-Acetylcy steine and Metamizole may falsely depress this assay.Serum Triglycerides Reference Interval Normal <150 mg/dL Borderline high 150 - 199 mg/dL High 200 - 499 mg/dL Very High > or = 500 mg/dL WBC (Bld) [#/Vol] 6.5 10*3/uL 4.4-11.0 [facility] Work Phone: [phone] Blood erythrocytes count (nu mber/volume)on 01-12-2022 RBC (Bld) [#/Vol] 3.71 10*6/uL 4.2-5.4 [facility] Work Phone: [phone] Blood hemoglobin measurement (mass/volume)on 01-12-2022 Hemoglobin (Bld) [Mass/Vol] 10.9 g/dL 12.0-15.0 [facility] Work Phone: Blood lymphocytes/100 leukoc yteson 01-12-2022 Lymphocytes/100 WBC (Bld) 41.7 % 19-41 [facility] Work Phone: Blood monocytes/100 leukocyt eson 01-12-2022 Monocytes/100 WBC (Bld) 8.2 % 0-10 [facility] Work Phone: Blood platelet mean volumeon 01-12-2022 Platelet mean volume (Bld) [Entitic vol] 10.7 fL 6.2-12.0 [facility] Work Phone: [phone] Determination of erythrocyte mean corpuscular volume (MCV)on 01-12-2022 MCV (RBC) [Entitic vol] 94.9 fL 81-99 [facility] Work Phone: [phone] Hematocrit Auto (Bld) [Volum e fraction]on 01-12-2022 Hematocrit (Bld) [Volume fraction] 35.2 % 37-47 [facility] Work Phone: [phone] Laboratory - Hematology and Cell countson 01-12-2022 Erythrocyte distribution width (RBC) [Entitic vol] 51.7 fL 35.1-43.9 [facility] Work Phone: [phone] Erythrocyte distribution width (RBC) [Ratio] 14.9 % 11.6-14.6 [facility] Work Phone: [phone] Immature granulocytes/100 WBC (Bld) 0.300 % 0.0-0.9 [facility] Work Phone: [phone] Comment on above: IG% - Immature Granu locytes (promyelocytes, myelocytes and metamyelocytes) > 1% indicates that a LEFT SHIFT is Present. MCH (RBC) [Entitic mass] 29.4 pg 27.0-32.0 [facility] Work Phone: [phone] Nucleated RBC/100 WBC (Bld) [Ratio] 0 % 0-5 [facility] Work Phone: [phone] MCHC Auto (RBC) [Mass/Vol]on 01-12-2022 MCHC (RBC) [Mass/Vol] 31.0 g/dL 32-36 [facility] Work Phone: [phone] Platelets bldon 01-12-2022 Platelets (Bld) [#/Vol] 214 10*3/uL 150-450 [facility] Work Phone: [phone] Serum or plasma cholesterol in HDL measurement (mass/volume)on 01-12-2022 Cholesterol in HDL [Mass/Vol] 33 mg/dL >40 [facility] Work Phone: [phone] Comment on above: The drugs N-Acetylcy steine and Metamizole may falsely depress this assay. Reference Range HDL <40 mg/dL Low HDL Cholesterol HDL >or= 60 mg/dL High HDL Cholesterol Serum or plasma cholesterol in VLDL measurement (mass/volume)on 01-12-2022 Cholesterol in VLDL [Mass/Vol] 44 mg/dL 5-40 [facility] Work Phone: [phone] Serum or plasma low density lipoprotein (LDL) cholesterol measurement (mass/volume)on 01-12-2022 Cholesterol in LDL [Mass/Vol] 53 mg/dL 0-130 [facility] Work Phone: [phone] Absolute lymphocyte counton 12-31-2021 Lymphocytes Auto (Unsp spec) [#/Vol] 2.15 10*3/uL 0.83-4.51 [facility] Work Phone: [phone] Basophil percentageon 2021 Basophils/100 WBC (Bld) 0.6 % 0-1 [facility] Work Phone: [phone] Bilirubin [Mass/Vol] 0.30 mg/dL 0.20-1.[address] [facility] Work Phone: Comment on above: For patients on eltr ombopag therapy, use of [place] TBIL is not recommended. Chloride [Moles/Vol] 112 mmol/L 98-[address] [facility] Work Phone: [phone] Eosinophils/100 WBC (Bld) 2.1 % 0-5 [facility] Work Phone: [phone] Glucose [Mass/Vol] 107 mg/dL 74-106 [facility] Work Phone: [phone] Comment on above: Fasting Glucose resu lt from 100 to 125 mg/dL suggests IMPAIRED HOMEOSTASIS per A.D.A. criteria. Neutrophils (Bld) [#/Vol] 3.5 10*3/uL 2.0-7.7 [facility] Work Phone: [phone] Neutrophils/100 WBC (Bld) 55.0 % 47-70 [facility] Work Phone: [phone] Potassium [Moles/Vol] 3.8 mmol/L 3.5-5.1 [facility] Work Phone: [phone] Protein [Mass/Vol] 5.9 g/dL 6.4-8.2 [facility] Work Phone: Sodium [Moles/Vol] 144 mmol/L 136-145 [facility] Work Phone: WBC (Bld) [#/Vol] 6.3 10*3/uL 4.4-11.0 [facility] Work Phone: Blood erythrocytes count (nu mber/volume)on 12-31-2021 RBC (Bld) [#/Vol] 3.72 10*6/uL 4.2-5.4 [facility] Work Phone: Blood hemoglobin measurement (mass/volume)on 12-31-2021 Hemoglobin (Bld) [Mass/Vol] 11.0 g/dL 12.0-15.0 [facility] Work Phone: Blood lymphocytes/100 leukoc yteson 12-31-2021 Lymphocytes/100 WBC (Bld) 34.1 % 19-41 [facility] Work Phone: Blood monocytes/100 leukocyt eson 12-31-2021 Monocytes/100 WBC (Bld) 7.9 % 0-10 [facility] Work Phone: Blood platelet mean volumeon 12-31-2021 Platelet mean volume (Bld) [Entitic vol] 10.5 fL 6.2-12.0 [facility] Work Phone: Determination of erythrocyte mean corpuscular volume (MCV)on 12-31-2021 MCV (RBC) [Entitic vol] 92.5 fL 81-99 [facility] Work Phone: Hematocrit Auto (Bld) [Volum e fraction]on 12-31-2021 Hematocrit (Bld) [Volume fraction] 34.4 % 37-47 [facility] Work Phone: [phone] Laboratory - Chemistry and C hemistry - challengeon 12-31-2021 ALP [Catalytic activity/Vol] 80 U/L 45-117 [facility] Work Phone: ALT [Catalytic activity/Vol] 33 U/L 13-56 [facility] Work Phone: CO2 [Moles/Vol] 26.0 mmol/L 21.0-32.0 [facility] Work Phone: Globulin (S) [Mass/Vol] 2.9 g/dL 2.2-4.2 [facility] Work Phone: Urea nitrogen/Creatinine [Mass ratio] 23.2 mg/mg 10-20 [facility] Work Phone: Laboratory - Hematology and Cell countson 12-31-2021 Erythrocyte distribution width (RBC) [Entitic vol] 49.7 fL 35.1-43.9 [facility] Work Phone: Erythrocyte distribution width (RBC) [Ratio] 14.7 % 11.6-14.6 [facility] Work Phone: Immature granulocytes/100 WBC (Bld) 0.300 % 0.0-0.9 [facility] Work Phone: Comment on above: IG% - Immature Granu locytes (promyelocytes, myelocytes and metamyelocytes) > 1% indicates that a LEFT SHIFT is Present. MCH (RBC) [Entitic mass] 29.6 pg 27.0-32.0 [facility] Work Phone: Nucleated RBC/100 WBC (Bld) [Ratio] 0 % 0-5 [facility] Work Phone: MCHC Auto (RBC) [Mass/Vol]on 12-31-2021 MCHC (RBC) [Mass/Vol] 32.0 g/dL 32-36 [facility] Work Phone: No Panel Informationon 12-31 CA 125 Antigen 19.0 U/mL 0.0-38.1 [facility] Work Phone: Comment on above: [facility] [facility] El ectrochemiluminescence Immunoassay(ECLIA)Values obtained with different assay methods or kits cannotbe used interchangeably. Results cannot be interpreted asabsolute evidence of the presence or absence of malignantdisease.Performed at: [address] [id number] Director: Boston Bradford PhD, Phone: [phone] Estimated GFR (MDRD) Amer 128 mL/min >60 [facility] Work Phone: Comment on above: GFR Calc Estimated GFR (MDRD) Non-Af Amer 105 mL/min >60 [facility] Work Phone: Comment on above: Non- GFR Calc Platelets bldon 12-31-2021 Platelets (Bld) [#/Vol] 229 10*3/uL 150-450 [facility] Work Phone: Serum or plasma albumin nohelia urement (mass/volume)on 12-31-2021 Albumin [Mass/Vol] 3.0 g/dL 3.2-5.0 [facility] Work Phone: Serum or plasma albumin/glob ulin mass ratioon 12-31-2021 Albumin/Globulin [Mass ratio] 1.0 {ratio} 0.9-2.4 [facility] Work Phone: Serum or plasma calcium nohelia urement (mass/volume)on 12-31-2021 Calcium [Mass/Vol] 8.3 mg/dL 8.5-10.1 [facility] Work Phone: Serum or plasma creatinine m easurement (mass/volume)on 12-31-2021 Creatinine [Mass/Vol] 0.60 mg/dL 0.55-1.02 [facility] Work Phone: Comment on above: The validity of the calculated GFR & GFRAA in patients over 70 years has not been determined. Clinical correlation is essential. Serum or plasma urea nitroge n measurement (mass/volume)on 12-31-2021 Urea nitrogen [Mass/Vol] 14 mg/dL 7-18 [facility] Work Phone: Thin prep Papanicolaou smear with manual screeningon 12-31-2021 Thin prep Papanicolaou smear with manual screening 17 U/L 15-37 [facility] Work Phone: Thin prep Papanicolaou smear with manual screening 6 5-15 [facility] Work Phone: CREATININE,POC(AK)on 022 Creatinine [Mass/Vol] 0.60 mg/dL 0.60 - 1.30 mg/dL [facility] GFR/1.73 sq M.predicted among non-blacks MDRD (S/P/Bld) [Vol rate/Area] mL/min/{1.73_m2} [facility] Absolute lymphocyte counton 10-20-2021 Lymphocytes Auto (Unsp spec) [#/Vol] 2.60 10*3/uL 0.83-4.51 [facility] Work Phone: [phone] Basophil percentageon 2021 Basophils/100 WBC (Bld) 0.8 % 0-1 [facility] Work Phone: Cholesterol [Mass/Vol] 120 mg/dL <200 [facility] Work Phone: Comment on above: <200 mg/dL Desirable 200-240 mg/dL Borderline >240 mg/dL High Risk Eosinophils/100 WBC (Bld) 1.7 % 0-5 [facility] Work Phone: [phone] Neutrophils (Bld) [#/Vol] 4.0 10*3/uL 2.0-7.7 [facility] Work Phone: [phone] Neutrophils/100 WBC (Bld) 52.3 % 47-70 [facility] Work Phone: Triglyceride [Mass/Vol] 144 mg/dL [facility] Work Phone: Comment on above: The drugs N-Acetylcy steine and Metamizole may falsely depress this assay.Serum Triglycerides Reference Interval Normal <150 mg/dL Borderline high 150 - 199 mg/dL High 200 - 499 mg/dL Very High > or = 500 mg/dL WBC (Bld) [#/Vol] 7.7 10*3/uL 4.4-11.0 [facility] Work Phone: Blood erythrocytes count (nu mber/volume)on 10-20-2021 RBC (Bld) [#/Vol] 3.96 10*6/uL 4.2-5.4 [facility] Work Phone: [phone] Blood hemoglobin measurement (mass/volume)on 10-20-2021 Hemoglobin (Bld) [Mass/Vol] 11.5 g/dL 12.0-15.0 [facility] Work Phone: Blood lymphocytes/100 leukoc yteson 10-20-2021 Lymphocytes/100 WBC (Bld) 33.7 % 19-41 [facility] Work Phone: Blood monocytes/100 leukocyt eson 10-20-2021 Monocytes/100 WBC (Bld) 11.0 % 0-10 [facility] Work Phone: Blood platelet mean volumeon 10-20-2021 Platelet mean volume (Bld) [Entitic vol] 10.6 fL 6.2-12.0 [facility] Work Phone: [phone] Determination of erythrocyte mean corpuscular volume (MCV)on 10-20-2021 MCV (RBC) [Entitic vol] 94.9 fL 81-99 [facility] Work Phone: Hematocrit Auto (Bld) [Volum e fraction]on 10-20-2021 Hematocrit (Bld) [Volume fraction] 37.6 % 37-47 [facility] Work Phone: [phone] Laboratory - Hematology and Cell countson 10-20-2021 Erythrocyte distribution width (RBC) [Entitic vol] 49.6 fL 35.1-43.9 [facility] Work Phone: [phone] Erythrocyte distribution width (RBC) [Ratio] 14.1 % 11.6-14.6 [facility] Work Phone: [phone] Immature granulocytes/100 WBC (Bld) 0.500 % 0.0-0.9 [facility] Work Phone: [phone] Comment on above: IG% - Immature Granu locytes (promyelocytes, myelocytes and metamyelocytes) > 1% indicates that a LEFT SHIFT is Present. MCH (RBC) [Entitic mass] 29.0 pg 27.0-32.0 [facility] Work Phone: Nucleated RBC/100 WBC (Bld) [Ratio] 0 % 0-5 [facility] Work Phone: [phone] MCHC Auto (RBC) [Mass/Vol]on 10-20-2021 MCHC (RBC) [Mass/Vol] 30.6 g/dL 32-36 [facility] Work Phone: [phone] Platelets bldon 10-20-2021 Platelets (Bld) [#/Vol] 260 10*3/uL 150-450 [facility] Work Phone: Serum or plasma cholesterol in HDL measurement (mass/volume)on 10-20-2021 Cholesterol in HDL [Mass/Vol] 35 mg/dL [facility] Work Phone: Comment on above: The drugs N-Acetylcy steine and Metamizole may falsely depress this assay. Reference Range HDL <40 mg/dL Low HDL Cholesterol HDL >or= 60 mg/dL High HDL Cholesterol Serum or plasma cholesterol in VLDL measurement (mass/volume)on 10-20-2021 Cholesterol in VLDL [Mass/Vol] 29 mg/dL 5-40 [facility] Work Phone: Serum or plasma low density lipoprotein (LDL) cholesterol measurement (mass/volume)on 10-20-2021 Cholesterol in LDL [Mass/Vol] 56 mg/dL 0-130 [facility] Work Phone: Culture, urineon 10-15-2021 Bacteria identified Cx Nom (U) Providencia rettgeri [facility] Work Phone: Bacteria identified Cx Nom (U) Vancomycin Resist. E. faecalis [facility] Work Phone: Bacteria identified Cx Nom (U) Corynebacterium striatum [facility] Work Phone: COVID PCR, SCREENING CONGREG ATEon 03-14-2020 CORONAVIRUS 2019,PCR NOT DETECTED Normal Not Detected [facility] Comment on above: Result Comment: This assay is designed to detect the N, ORF1ab and/or S genes of SARS-CoV-2 via nucleic acid amplification. A Negative (NOT DETECTED) result does not preclude 2019-nCoV infection since the adequacy of sample collection and/or low viral burden may result in presence of viral nucleic acids below the clinical sensitivity of this test method. Negative (NOT DETECTED) result should not be used as the sole basis for treatment or other patient management decisions. Rather negative results should be combined with clinical observations, patient history, and epidemiological information to make patient management decisions. Fact sheet for providers: https://www.fda.gov/media/745764/download Fact sheet for patients: https://www.fda.gov/media/257938/download This test has received FDA Emergency Use Authorization (EUA) and has been verified by [facility]). This test is only authorized for the duration of time that circumstances exist to justify the authorization of the emergency use of in vitro diagnostic tests for the detection of SARS-CoV-2 virus and/or diagnosis of COVID-19 infection under section 564(b)(1) of the Act, 21 U.S.C. 360bbb-3(b)(1), unless the authorization is terminated or revoked sooner. [facility]) is certified under CLIA-88 as qualified to perform high complexity testing. This tests analytical performance characteristics have been determined by [facility]. Testing is performed at [facility] is located at [address] [place] [address] (CLIA License #[id number], CAP #[id number]). Performed By: #### C VCLA #### [facility] [address] [place] [address] COVID PCR, SCREENING CONGREG ATEon 03-12-2020 Lab Specimen Source Nasal, Nasopharyngeal Normal [facility] Comment on above: Performed By: #### C VCLA #### [facility] [address] [place] [address] ED Provider Noteon 9 Protein mass conc [facility] ED eMERGENCY dEPARTMENT eNCOUnter Pt Name: Shin Rojo Birthdate 1955 Date of evaluation: 10/06/2018 Provider: Joel Mays MD CHIEF CONCERN Chief Complaint Patient presents with ? Generalized Body Aches CHIEF CONCERN / HISTORY OF PRESENT ILLNESS Here [facility]. Today noted to be febrile. Was given tylenol. They noticed that she had stronger smell to the urine. She seemed lethargic and they wanted to make sure she was not septic but could not get an IV to send labs. Patient reports chronic indwelling hopkins and fever with chills over the past [...] Surgical History: Procedure Laterality Date ? INSERT/CHANGE HOPKINS CATHETER - SIMPLE CURRENT MEDICATIONS Previous Medications [...] as needed for Muscle spasms ERGOCALCIFEROL (ERGOCALCIFEROL) 97709 UNITS CAPSULE Take 50,000 Units by mouth [...] EST Exam CR Chest Portable Ordering Physician JOEL JASSO Accession Number [id number] CPT4 Codes 33420 () Reason For Exam fever, sepsis eval [...] Notable for the following: Result Value Specific [place], Urine 1.003 (*) All other components within normal limits Narrative: Test Performed by [facility], [address] [place] [address] CBC WITH AUTO DIFFERENTIAL - Abnormal; Notable for the following: RBC 3.67 (*) Hemoglobin 10.9 (*) Hematocrit 33.0 (*) All other components within normal limits Narrative: Test Performed by [facility], [address] [place], [place] [address] COMPREHENSIVE METABOLIC PANEL - Abnormal; Notable for the following: Potassium 3.4 (*) Chloride 108 (*) Glucose 149 (*) Total Protein 5.8 (*) All other components within normal limits Narrative: [facility], [address] [place], [place] [address] MANUAL DIFFERENTIAL - Abnormal; Notable for the following: Seg Neutrophils 36 (*) Lymphocytes 49 (*) Monocytes 14 (*) Eosinophils 0 (*) Absolute Neut # 1.5 (*) All other components within normal limits Narrative: Test Performed by [facility], [address] [place], [place] [address] URINE CULTURE LACTIC ACID, PLASMA Narrative: Test Performed by [facility], [address] [place], [place] [address] URINALYSIS WITH MICROSCOPIC Narrative: Test Performed by [facility], [address] [place], [place] [address] All other labs were within normal range [...] ? Patient re-evaluated and without new symptoms. Hopkins was exchanged this morning. ? Low suspicion for sepsis, pneumonia, acute intra-abdominal process, stroke. Medications 0.9 % sodium chloride bolus (0 mLs Intravenous Stopped 10/07/18 0121) sulfamethoxazole-trimethop rim (BACTRIM DS;SEPTRA DS) 800-160 MG per tablet [...] hematuria DISPOSITION/PLAN DISPOSITION PATIENT REFERRED TO: CHRISTOPHER Flanagan [facility] [address] 2-3 days DISCHARGE MEDICATIONS: New Prescriptions SULFAMETHOXAZOLE-TRIMETHOP RIM (BACTRIM DS) 800-160 MG PER TABLET Take 1 tablet by mouth 2 times daily for 4 days (Please note: Portions of this note were completed with a voice recognition program. Efforts were made to edit the dictations but occasionally words and phrases are mis-transcribed.) Form [id number] Joel Mays MD (electronically signed) Emergency Medicine Provider Joel Mays MD 10/07/18 0130 [facility] Cult Urineon 04-07-2018 [facility] are indicative of probable nonclean catchspecimen or contamination of specimen collection system.No further identification or susceptibility testing willbe performed. Please submit new specimen.Plates will be held for 5 days. [facility] Comment on above: Performed By: #### C _URI ####[place] [id number] Culture, urine Bacteria identified Cx Nom (U) Proteus mirabilis [facility] Work Phone: Bacteria identified Cx Nom (U) Escherichia coli [facility] Work Phone: Bacteria identified Cx Nom (U) Enterococcus faecalis [facility] Work Phone: Bacteria identified Cx Nom (U) Pseudomonas aeroginosa [facility] Work Phone: Influenza virus A and B and SARS-CoV-2 (COVID-19) Ag panel - Upper respiratory specim SARS-CoV-2 & FLU Antigen (Rapid) SARS-CoV-2 (COVID 19) [facility] Work Phone: Laboratory - Microbiology an d Antimicrobial susceptibility Bacteria identified Cx Nom (Bld) No growth in 5 days. [facility] Work Phone: Vital Signs Date Time Vital Sign Value Performing Clinician Forrest andrews 02-05-2025 08:50-0400 Body height 160 cm [facility] ELECTRICAL TEST TECHNICIAN.VACCINE CUSTOMER REPRESENTATIVE Work Phone: [facility] 02-05-2025 08:50-0400 Body mass index (BMI) [Ratio] 28.34 kg/m2 Tiny Postlethwait ELECTRICAL TEST TECHNICIAN.VACCINE CUSTOMER REPRESENTATIVE Work Phone: [facility] 02-05-2025 08:50-0400 Body weight 72.58 kg Tiny Postlethwait ELECTRICAL TEST TECHNICIAN.VACCINE CUSTOMER REPRESENTATIVE Work Phone: [facility] 02-05-2025 08:50-0400 Respiratory rate 16 /min Tiny Postlethwait ELECTRICAL TEST TECHNICIAN.VACCINE CUSTOMER REPRESENTATIVE Work Phone: [facility] 01-27-2024 13:34-0400 Body height 160 cm Marisela [employer] PA-C Work Phone: [facility] 01-27-2024 13:34-0400 Body mass index (BMI) [Ratio] 31.89 kg/m2 Marisela [employer] PA-C Work Phone: [facility] 01-27-2024 13:34-0400 Body weight 81.65 kg Marisela [employer] PA-C Work Phone: [facility] 01-05-2023 15:11-0400 Body height 160 cm Mikel Nazario MD Work Phone: [facility] 01-05-2023 15:11-0400 Body temperature 98.2 [degF] Mikel Nazario MD Work Phone: [facility] 01-05-2023 15:11-0400 Diastolic blood pressure 86 mm[Hg] Mikel Nazario MD Work Phone: [facility] 01-05-2023 15:11-0400 Heart rate 92 /min Mikel Nazario MD Work Phone: [facility] 01-05-2023 15:11-0400 SaO2% (BldA) [Mass fraction] 97 % Mikel Nazario MD Work Phone: [facility] 01-05-2023 15:11-0400 Systolic blood pressure 131 mm[Hg] Mikel Nazario MD Work Phone: [facility] 09-10-2022 01:31-0500 Body temperature 97.5 [degF] Dr. Portillo Trujillo Work Phone: [facility] 09-10-2022 01:31-0500 Diastolic blood pressure 64 mm[Hg] Dr. Portillo Trujillo Work Phone: [facility] 09-10-2022 01:31-0500 Heart rate 64 /min Dr. Portillo Trujillo Work Phone: [facility] 09-10-2022 01:31-0500 Respiratory rate 18 /min Dr. Portillo Trujillo Work Phone: [facility] 09-10-2022 01:31-0500 SaO2% (BldA) [Mass fraction] 97 % Dr. Portillo Trujillo Work Phone: [facility] 09-10-2022 01:31-0500 Systolic blood pressure 126 mm[Hg] Dr. Portillo Trujillo Work Phone: [facility] 09-08-2022 17:32-0500 Inhaled oxygen flow rate 2 L/min Dr. Portillo Trujillo Work Phone: [facility] 09-08-2022 08:44-0500 Body height 158.[address] Portillo Trujillo Work Phone: [facility] 09-08-2022 08:44-0500 Body mass index (BMI) [Ratio] 33.3 kg/m2 Dr. Portillo Trujillo Work Phone: [facility] 09-08-2022 08:44-0500 Body weight 83.[address] Portillo Trujillo Work Phone: [facility] 09-08-2022 06:41-0500 Body temperature 99 [degF] Dr. Portillo Trujillo Work Phone: [facility] Work Phone: 09-08-2022 06:41-0500 Diastolic blood pressure 60 mm[Hg] Dr. Portillo Trujillo Work Phone: [facility] Work Phone: 09-08-2022 06:41-0500 Heart rate 92 /min Dr. Portillo Trujillo Work Phone: [facility] Work Phone: 09-08-2022 06:41-0500 Inhaled oxygen flow rate 2 L/min Dr. Portillo Trujillo Work Phone: [facility] Work Phone: 09-08-2022 06:41-0500 Respiratory rate 16 /min Dr. Portillo Trujillo Work Phone: [facility] Work Phone: 09-08-2022 06:41-0500 SaO2% (BldA) [Mass fraction] 95 % Dr. Portillo Trujillo Work Phone: [facility] Work Phone: 09-08-2022 06:41-0500 Systolic blood pressure 92 mm[Hg] Dr. Portillo Trujillo Work Phone: [facility] Work Phone: 09-08-2022 03:54-0500 Body height 167.[address] Portillo Trujillo Work Phone: [facility] Work Phone: 09-08-2022 03:54-0500 Body mass index (BMI) [Ratio] 29.4 kg/m2 Dr. Portillo Trujillo Work Phone: [facility] Work Phone: 09-08-2022 03:54-0500 Body weight 82.[address] Portillo Trujillo Work Phone: [facility] Work Phone: 07-27-2022 14:28-0500 Body height 160 cm Marisela Murray PA-C Work Phone: [facility] 07-27-2022 14:28-0500 Diastolic blood pressure 80 mm[Hg] Marisela Murray PA-C Work Phone: [facility] 07-27-2022 14:28-0500 Systolic blood pressure 150 mm[Hg] Marisela Murray PA-C Work Phone: [facility] 06-09-2022 10:03-0400 Body height 160 cm Mikel Nazario MD Work Phone: [facility] 06-09-2022 10:03-0400 Body temperature 98.91 [degF] Mikel Nazario MD Work Phone: [facility] 06-09-2022 10:03-0400 Diastolic blood pressure 84 mm[Hg] Mikel Nazario MD Work Phone: [facility] 06-09-2022 10:03-0400 Heart rate 85 /min Mikel Nazario MD Work Phone: [facility] 06-09-2022 10:03-0400 SaO2% (BldA) [Mass fraction] 95 % Mikel Nazario MD Work Phone: [facility] 06-09-2022 10:03-0400 Systolic blood pressure 155 mm[Hg] Mikel Nazario MD Work Phone: [facility] 05-01-2022 15:50-0400 Body height 157.5 cm Pst 1 [facility] 05-01-2022 15:50-0400 Body temperature 97 [degF] Pst 1 [facility] 05-01-2022 15:50-0400 Body weight 77.11 kg Pst 1 [facility] 05-01-2022 15:50-0400 Diastolic blood pressure 66 mm[Hg] Pst 1 [facility] 05-01-2022 15:50-0400 Heart rate 95 /min Pst 1 [facility] 05-01-2022 15:50-0400 Respiratory rate 16 /min Pst 1 [facility] 05-01-2022 15:50-0400 SaO2% (BldA) [Mass fraction] 95 % Pst 1 [facility] 05-01-2022 15:50-0400 Systolic blood pressure 138 mm[Hg] Pst 1 [facility] 04-07-2022 10:02-0400 Body height 158.8 cm Mikel Nazario MD Work Phone: [facility] 04-07-2022 10:02-0400 Diastolic blood pressure 69 mm[Hg] Mikel Nazario MD Work Phone: [facility] 04-07-2022 10:02-0400 Heart rate 90 /min Mikel Nazario MD Work Phone: [facility] 04-07-2022 10:02-0400 SaO2% (BldA) [Mass fraction] 95 % Mikel Nazario MD Work Phone: [facility] 04-07-2022 10:02-0400 Systolic blood pressure 129 mm[Hg] Mikel Nazario MD Work Phone: [facility] 03-10-2022 09:12-0400 Body height 158.8 cm Mikel Nazario MD Work Phone: [facility] 03-10-2022 09:12-0400 Body temperature 97.7 [degF] Mikel Nazario MD Work Phone: [facility] 03-10-2022 09:12-0400 Diastolic blood pressure 80 mm[Hg] Mikel Nazario MD Work Phone: [facility] 03-10-2022 09:12-0400 Heart rate 88 /min Mikel Nazario MD Work Phone: [facility] 03-10-2022 09:12-0400 SaO2% (BldA) [Mass fraction] 96 % Mikel Nazario MD Work Phone: [facility] 03-10-2022 09:12-0400 Systolic blood pressure 137 mm[Hg] Mikel Nazario MD Work Phone: [facility] 02-03-2022 08:59-0400 Body height 160 cm Mikel Nazario MD Work Phone: [facility] 02-03-2022 08:59-0400 Body temperature 96.8 [degF] Mikel Nazario MD Work Phone: [facility] 02-03-2022 08:59-0400 Body weight 77.11 kg Mikel Nazario MD Work Phone: [facility] 02-03-2022 08:59-0400 Diastolic blood pressure 98 mm[Hg] Mikel Nazario MD Work Phone: [facility] 02-03-2022 08:59-0400 Heart rate 70 /min Mikel Nazario MD Work Phone: [facility] 02-03-2022 08:59-0400 SaO2% (BldA) [Mass fraction] 96 % Mikel Nazario MD Work Phone: [facility] 02-03-2022 08:59-0400 Systolic blood pressure 150 mm[Hg] Mikel Nazario MD Work Phone: [facility] 01-22-2022 10:08-0400 Body height 160 cm Nacho Navarrete Jr., MD Work Phone: [facility] 01-22-2022 10:08-0400 Body weight 68.95 kg Nacho Navarrete Jr., MD Work Phone: [facility] 01-22-2022 10:08-0400 Diastolic blood pressure 88 mm[Hg] Nacho Navarrete Jr., MD Work Phone: [facility] 01-22-2022 10:08-0400 Systolic blood pressure 142 mm[Hg] Nacho Navarrete Jr., MD Work Phone: [facility] Encounters Encounter Date Encounter Type Care Provider Facility Start: 02-26-2025 ambulatory Out of Town Doctor Forrest andrews:[facility] Start: 02-05-2025 End: 02-05-2025 Office outpatient visit 10 minutes Tiny Garcia APRN.CNP Work Phone: [facility] Comment on above: Retention of urine, unspecified (Primary Dx) Start: 02-05-2025 End: 02-05-2025 ambulatory TINY MERLOS POST[place]WAIT Facility:[facility] Start: 01-16-2025 End: 01-16-2025 ambulatory Out of Town Doctor [facility] Work Phone: Start: 01-16-2025 End: 01-16-2025 Departed Referred Twan Guerrero MD -[facility] Start: 01-16-2025 End: 01-16-2025 ambulatory Out of Town Doctor Facility:[facility] Start: 10-24-2024 ambulatory Out of Town Doctor Faci lity:[facility] Start: 10-24-2024 Registered Referred Twan Guerrero MD -[facility] Start: 10-14-2024 End: 10-14-2024 Emergency department patient visit Abel Wang Facility:[facility] Start: 08-01-2024 End: 08-01-2024 ambulatory Out of Town Doctor Facility:[facility] Start: 05-09-2024 ambulatory Out of Town Doctor Faci lity:[facility] Start: 04-03-2024 ambulatory Rashard Brittani Facility:[facility] Start: 01-27-2024 End: 01-27-2024 Patient encounter procedure Marisela Murray PA-C Work Phone: [facility] Comment on above: Retention of urine, unspecified (Primary Dx) Start: 12-21-2023 End: 12-21-2023 ambulatory [facility] Work Phone: Start: 12-21-2023 End: 12-21-2023 Patient encounter procedure [facility]-Radiology, [facility] Work Phone: Start: 12-21-2023 Registered Referred [facility] Start: 11-22-2023 End: 11-22-2023 ambulatory [facility] Work Phone: Start: 11-22-2023 End: 11-22-2023 Departed Referred [facility] Start: 11-22-2023 Registered Referred [facility] Start: 11-09-2023 End: 11-09-2023 ambulatory [facility] Work Phone: Start: 11-09-2023 End: 11-09-2023 Departed Referred [facility] Start: 09-22-2023 End: 09-22-2023 ambulatory [facility] Work Phone: Start: 09-22-2023 End: 09-22-2023 Departed Referred [facility] Start: 08-30-2023 End: 08-30-2023 ambulatory [facility] Work Phone: Start: 08-30-2023 End: 08-30-2023 Departed Referred [facility] Start: 06-07-2023 End: 06-07-2023 ambulatory [facility] Work Phone: Start: 06-07-2023 End: 06-07-2023 Departed Referred [facility] Start: 03-15-2023 End: 03-15-2023 ambulatory [facility] Work Phone: Start: 03-15-2023 End: 03-15-2023 Departed Referred [facility] Start: 01-06-2023 End: 01-06-2023 ambulatory [facility] Work Phone: Start: 01-06-2023 End: 01-06-2023 Departed Referred [facility] Start: 01-05-2023 End: 01-05-2023 Visit (SP) Office Mikel Naazrio MD Work Phone: [facility] Gynecology Oncology Comment on above: 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 Portillo Trujillo Work Phone: [facility] Work Phone: Start: 10-27-2022 End: 10-27-[address] Portillo Trujillo Work Phone: [facility] Start: 10-07-2022 Telephone encounter Marisela morrell PA-C Work Phone: Urology Comment on above: Orders Start: 09-22-2022 End: 09-22-[address] Portillo Trujillo Work Phone: [facility] Work Phone: Start: 09-22-2022 End: 09-22-[address] Portillo Trujillo Work Phone: [facility] Start: 09-15-[address] Portillo Trujillo Work Phone: [facility] Start: 09-09-2022 Non-patient / Non-visit Dr. Zach Trujillo Work Phone: [facility] Start: 09-08-2022 End: 09-10-2022 Evaluation and management of inpatient Dr. Portillo Trujillo Work Phone: [facility]-Medical Surgical 3 Start: 09-08-2022 Non-patient / Non-visit Dr. Zach Trujillo Work Phone: [facility] Start: 08-04-2022 End: 08-04-2022 ambulatory [facility] Work Phone: Start: 08-04-2022 End: 08-04-2022 Departed Referred [facility] Start: 07-27-2022 End: 07-27-2022 Patient encounter procedure Marisela Murray PA-C Work Phone: [facility] Comment on above: Retention of urine, unspecified (Primary Dx) Start: 07-02-2022 Telephone encounter Marisela morrell PA-C Work Phone: [facility] Comment on above: Results Start: 06-29-2022 End: 06-29-[address] Portillo Trujillo Work Phone: [facility] Start: 06-29-2022 Registered Referred [facility] Start: 06-26-2022 Telephone encounter Nacho Navarrete MD Work Phone: [facility] Comment on above: Patient Update Start: 06-26-2022 End: 06-26-2022 Departed Referred [facility] Start: 06-09-2022 End: 06-09-2022 Visit (SP) Office Mikel Nazario MD Work Phone: [facility] Gynecology Oncology Comment on above: Multiple sclerosis ( HCC) (Primary Dx); Complete immobility due to severe physical disability or frailty (HCC); 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) Start: 05-01-2022 End: 05-01-2022 Admission to [address] Start: 05-01-2022 End: 05-01-2022 amb[address] P[address] 1 Pre Surgical Testing Comment on above: Pre-op testing (Prim ron Dx); Iron deficiency anemia, unspecified iron deficiency anemia type [D50.9 (ICD-10-CM)]; Mixed hyperlipidemia [E78.2 (ICD-10-CM)]; Multiple sclerosis (HCC) [G35 (ICD-10-CM)]; 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)] Start: 05-01-2022 End: 05-01-2022 Patient encounter status Pst 1 Pre Surgical Te sting Start: 04-24-2022 Telephone encounter Mikel monteiro MD Work Phone: [facility] Gynecology Oncology Comment on above: Preparations For Ashtyn marvin; Returning Patient's Call Start: 04-07-2022 End: 04-07-2022 Manual pelvic examination Mikel Nazario MD Work Phone: [facility] Gynecology Oncology Comment on above: Pelvic mass in femal e (Primary Dx); Multiple sclerosis (HCC); Complete immobility due to severe physical disability or frailty (HCC) Bilateral tubo-ovari an mass (Primary Dx) Start: 04-07-2022 End: 04-07-2022 Patient encounter procedure Mikel Nazario MD Work Phone: [facility] Start: 04-06-2022 End: 04-06-2022 Departed Referred [facility] Start: 04-06-2022 Registered Referred [facility] Start: 04-01-2022 End: 04-01-2022 Departed Referred [facility] Start: 03-10-2022 End: 03-10-2022 ambulatory Mikel Nazario MD Work Phone: [facility] Gynecology Oncology Comment on above: Bilateral tubo-ovari an mass (Primary Dx); MS (multiple sclerosis) (HCC); Retention of urine, unspecified Start: 03-10-2022 End: 03-10-2022 Patient encounter procedure Mikel Nazario MD Work Phone: [facility] Start: 02-23-2022 End: 02-23-2022 Departed Referred [facility] Start: 02-23-2022 Registered Referred [facility] Start: 02-18-2022 End: 02-18-2022 Departed Referred [facility] Start: 02-03-2022 End: 02-03-2022 ambulatory Mikel Nazario MD Work Phone: [facility] Gynecology Oncology Comment on above: MS (multiple scleros is) (HCC) (Primary Dx); Bilateral tubo-ovarian mass; Retention of urine, unspecified Start: 02-03-2022 End: 02-03-2022 Patient encounter procedure Mikel Nazario MD Work Phone: [facility] Start: 01-22-2022 End: 01-22-2022 Patient encounter procedure Nacho Navarrete MD Work Phone: [facility] Comment on above: Urinary retention (P rimary Dx) Start: 01-12-2022 End: 01-12-2022 Departed Referred [facility] Start: 01-12-2022 Registered Referred [facility] Start: 12-31-2021 End: 12-31-2021 Departed Referred [facility] Start: 12-31-2021 Registered Referred [facility] Start: 12-25-2021 End: 12-25-2021 Subsequent hospital visit by physician Ct [facility]IO CT SCAN [facility] Comment on above: oral prep bladder mass Start: 10-20-2021 End: 10-20-2021 Departed Referred [facility] Start: 10-20-2021 Registered Referred [facility] Start: 10-15-2021 End: 10-15-2021 Departed Referred [facility] Start: 01-09-2019 Patient encounter procedure RENETTA HEATH Facility:[facility] Start: 10-07-2018 Emergency department patient visit UNKNOWN PROVIDER [facility] Start: 04-07-2018 End: 04-08-2018 Patient encounter MARISELA MURRAY Facility:[facility] Start: 04-07-2018 End: 04-07-2018 Patient encounter MARISELA MURRAY Facility:[facility] Start: 04-01-2018 End: 04-01-2018 Patient encounter MARISELA MURRAY Facility:[facility] Start: 03-28-2018 Patient encounter MARISELA MURRAY Fac ility:[facility] Start: 03-04-2018 End: 03-04-2018 Patient encounter MARISELA MURRAY Facility:[facility] Procedures Date Procedure Procedure Detail Performing Clinician Start: 12-21-2023 [facility] Start: 09-08-2022 CT angiography of ch est with contrast Dr. Portillo Trujillo Work Phone: Start: 09-08-2022 Plain chest X-ray Dr. Rebecca Trujillo Work Phone: Start: 12-25-2021 Creatinine blood [facility] Start: 10-15-2021 Urine culture Start: 12-26-2013 Adult depression scr eening assessment Ct Bath Bacteria identified in Blood by Culture Dr. Portillo Trujillo Work Phone: Bacteria identified in Blood by Culture Dr. Portillo Trujillo Work Phone: SARS-CoV-2 & FLU Ant igen (Rapid) Dr. Portillo Trujillo Work Phone: SARS-CoV-2 & FLU Ant igen (Rapid) Dr. Portillo Trujillo Work Phone: Urine culture Urine culture Dr. Portillo bee Work Phone: Urine culture Dr. Portilol bee Work Phone: Plan of Treatment Date Care Activity Detail Author Start: 2030 RSV Vaccine (1 - 1-d ose 75+ series) RSV Vaccine (1 - 1-dose 75+ series) [facility] Start: 02-06-2026 End: 02-06-2026 Patient encounter procedure 02/06/2026 8:40 AM EDT Office Visit [facility] [address] [place] [id number] Tiny Garcia APRN.VACCINE CUSTOMER REPRESENTATIVE [address] [place] [address] 12 months follow up [facility] Comment on above: 12 months follow up Start: 05-21-2025 Influenza vaccination Influenz a Vaccine (Season Ended) [facility] Start: 05-01-2025 DIABETES SCREEN DIABETES SCREEN [facility] Start: 05-01-2025 Diabetes Screening Diabetes Screenin g [facility] Start: 02-06-2025 End: 02-06-2025 Patient encounter procedure 02/06/2025 9:10 AM EDT Office Visit [facility] [address] [place] [id number] Prisca Valentine APRN.VACCINE CUSTOMER REPRESENTATIVE [address] [place] [id number] 1 year follow up [facility] Comment on above: 1 year follow up Start: 09-20-2024 Advance Directive Discussion Advance Directive Discussion [facility] Start: 05-21-2024 Covid-19 Vaccine ( season) Covid-19 Vaccine ( season) [facility] Start: 05-21-2024 Influenza vaccination Influenz a Vaccine (Season Ended) [facility] Start: 09-20-2023 Advance Directive Discussion Advance Directive Discussion [facility] Start: 09-20-2023 Behavioral Health Screening Behavioral Health Screening [facility] Start: 05-21-2023 Covid-19 Vaccine ( season) Covid-19 Vaccine ( season) [facility] Start: 05-21-2023 Influenza vaccination INFLUENZ A (Season Ended) [facility] Start: 01-05-2023 End: 03-07-2023 Cancer Ag 125 [Units/volume] in Serum or Plasma CA 125 BLD Lab Routine 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) Expected: 01/05/2023, Expires: 03/07/2023 [facility] Work Phone: Comment on above: Expected: 01/05/2023 , Expires: 03/07/2023 Start: 09-20-2022 ADVANCE DIRECTIVE DISCUSSION ADVANCE DIRECTIVE DISCUSSION [facility] Start: 09-20-2022 DEPRESSION ASSESSMENT DEPRESSION ASS ESSMENT [facility] Start: 09-09-2022 Patient discharge [facility] Start: 09-09-2022 Care planning and pr oblem solving actions [facility] Start: 09-09-2022 Alanine aminotransfe rase [Enzymatic activity/volume] in Serum or Plasma [facility] Work Phone: Start: 09-09-2022 Aspartate aminotrans ferase [Enzymatic activity/volume] in Serum or Plasma [facility] Work Phone: Start: 09-09-2022 Blood chemistry [facility] Work Phone: Start: 09-09-2022 CBC W Auto Different ial panel - Blood [facility] Work Phone: Start: 09-09-2022 Complete blood count [facility] Work Phone: Start: 09-09-2022 [facility] Work Phone: Start: 09-08-2022 [facility] Work Phone: Start: 09-08-2022 Following clinical p athway protocol [facility] Start: 09-08-2022 Alkaline phosphatase [Enzymatic activity/volume] in Serum or Plasma [facility] Work Phone: Start: 09-08-2022 Assessment of risk o f venous thromboembolism [facility] Start: 09-08-2022 Insertion of cathete r into peripheral vein [facility] Start: 09-08-2022 Providing care accor ding to standard [facility] Start: 09-08-2022 Respiratory secretio n precautions [facility] Start: 09-08-2022 [facility] Start: 09-08-2022 [facility] Start: 09-08-2022 Incentive spirometry [facility] Start: 09-08-2022 Physiotherapy of chest [facility] Start: 09-08-2022 Bacteria identified in Sputum by Culture [facility] Work Phone: Start: 09-08-2022 Legionella pneumophi la Ag [Presence] in Urine [facility] Work Phone: Start: 09-08-2022 Streptococcus pneumo niae antigen assay [facility] Work Phone: Start: 09-08-2022 Verification routine [facility] Work Phone: Start: 09-08-2022 Admission procedure [facility] Start: 09-08-2022 End: 09-08-2022 Blood culture [facility] Work Phone: Start: 09-08-2022 End: 09-08-2022 [facility] Start: 07-27-2022 End: 09-26-2022 Bacteria identified in Urine by Culture URINE CULTURE Microbiology Routine Urinary retention Expected: 07/27/2022, Expires: 09/26/2022 [facility] Work Phone: Comment on above: Expected: 07/27/2022 , Expires: 09/26/2022 Start: 05-21-2022 Influenza vaccination [facility] Start: 04-07-2022 End: 06-07-2022 CBC panel - Blood by Automated count CBC Lab Routine Pelvic mass in female Expected: 04/07/2022, Expires: 06/07/2022 [facility] Work Phone: Comment on above: Expected: 04/07/2022 , Expires: 06/07/2022 Start: 04-07-2022 End: 06-07-2022 Comprehensive metabolic 2000 panel - Serum or Plasma COMP METABOLIC PANEL Lab Routine Pelvic mass in female Expected: 04/07/2022, Expires: 06/07/2022 [facility] Work Phone: Comment on above: Expected: 04/07/2022 , Expires: 06/07/2022 Start: 04-07-2022 End: 04-07-2023 SARS-CoV-2 (COVID-19) RNA [Presence] in Respiratory specimen by ERIN with probe detection PRE-PROCEDURE & PRE-OPERATIVE COVID Microbiology Routine Pelvic mass in female Expected: 04/07/2022, Expires: 04/07/2023 [facility] Work Phone: Comment on above: Expected: 04/07/2022 , Expires: 04/07/2023 Start: 04-07-2022 End: 06-07-2022 TYPE AND SCREEN,30 DAY TYPE AND SCREEN,30 DAY Blood Bank Routine Pelvic mass in female Expected: 04/07/2022, Expires: 06/07/2022 [facility] Work Phone: Comment on above: Expected: 04/07/2022 , Expires: 06/07/2022 Start: 03-24-2022 End: 04-09-2023 Us pelvic nonobstetric real-time image complete US FEMALE PELVIS TRANSABD COMPLETE Radiology Routine Bilateral tubo-ovarian mass Expected: 03/24/2022 (Approximate), Expires: 04/09/2023 [facility] Work Phone: Comment on above: Expected: 03/24/2022 (Approximate), Expires: 04/09/2023 Start: 09-20-2021 ADVANCE DIRECTIVE DISCUSSION ADVANCE DIRECTIVE DISCUSSION [facility] Start: 09-20-2021 DEPRESSION ASSESSMENT DEPRESSION ASS ESSMENT [facility] Start: 02-11-2020 BONE DENSITY BONE DENSITY [facility] Start: 02-11-2020 Pneumococcal Vaccine : 65+ (1 of 1 - PCV) Pneumococcal Vaccine: 65+ (1 of 1 - PCV) [facility] Start: 02-11-2020 PNEUMOCOCCAL: 65+ (1 - PCV) PNEUMOCOCCAL: 65+ (1 - PCV) [facility] Start: 02-11-2020 PNEUMOVAX AGE 65 AND OVER WITH 5YR LOOKBACK (#1) PNEUMOVAX AGE 65 AND OVER WITH 5YR LOOKBACK (#1) [facility] Start: 02-11-2020 Screening for osteoporosis Bone Dens ity Screening [facility] Start: 2015 RSV Vaccine (1 - 1-d ose 60+ series) RSV Vaccine (1 - 1-dose 60+ series) [facility] Start: 12-26-2014 Adult depression scr eening assessment DEPRESSION SCREENING [facility] Start: 2005 Pneumococcal Vaccine : 50+ (1 of 1 - PCV) Pneumococcal Vaccine: 50+ (1 of 1 - PCV) [facility] Start: 2005 SHINGRIX VACCINE (1 of 2) RICH GRIX VACCINE (1 of 2) [facility] Start: 02-11-2000 COLOGUARD (FIT-DNA) COLOGUARD (FIT-D NA) [facility] Start: 02-11-2000 Colonoscopy COLONOSCOPY [facility] Start: 02-11-2000 COLORECTAL CANCER SCREENING COLORECTAL CANCER SCREENING [facility] Start: 02-11-[address] COLONOGRAPHY [facility] Start: 02-11-2000 DIABETES SCREEN DIABETES SCREEN [facility] Start: 02-11-2000 FECAL OCCULT BLOOD FECAL OCCULT BLOO D [facility] Start: 02-11-2000 Lipid panel Lipid Screening [facility] Start: 02-11-2000 LIPID SCREEN LIPID SCREEN [facility] Start: 02-11-2000 Screening for malign ant neoplasm of colon [facility] Start: 02-11-2000 [facility] Start: 1995 Mammography MAMMOGRAM [facility] Start: 1995 Screening for malign ant neoplasm of breast Mammogram Screening [facility] Start: 1974 Urine microalbumin profile [facility] Start: 1973 Anxiety Screening Anxiety Screening [facility] Start: 1973 Depression Screening Depression Scre ening [facility] Start: 1973 HEPATITIS C SCREENING HEPATITIS C [facility] Start: 1973 Hepatitis C screening Hepatitis C [facility] Start: 02-11-1960 COVID-19 VACCINE (#1) COVID-19 VACCI NE (#1) [facility] Start: 02-11-1960 COVID-19 VACCINE (1) [facility] Start: 1955 COVID-19 VACCINE (#1) COVID-19 VACCI NE (#1) [facility] Alanine aminotransfe rase [Enzymatic activity/volume] in Serum or Plasma [facility] Work Phone: Albumin [Mass/volume ] in Serum or Plasma [facility] Work Phone: Alkaline phosphatase [Enzymatic activity/volume] in Serum or Plasma [facility] Work Phone: Anion gap measurement [facility] Work Phone: Aspartate aminotrans ferase [Enzymatic activity/volume] in Serum or Plasma [facility] Work Phone: Bacteria identified in Blood by Culture Blood Culture [facility] Work Phone: Bilirubin, total measurement [facility] Work Phone: Blood culture [facility] Work Phone: BUN/Creatinine ratio [facility] Work Phone: Calcium [Mass/volume ] in Serum or Plasma [facility] Work Phone: Carbon dioxide, tota l [Moles/volume] in Serum or Plasma [facility] Work Phone: Chloride [Moles/volu me] in Serum or Plasma [facility] Work Phone: Creatinine [Moles/vo lume] in Serum or Plasma [facility] Work Phone: Glucose [Mass/volume ] in Serum or Plasma [facility] Work Phone: Hematocrit [Volume Fraction] of Blood [facility] Work Phone: Hemoglobin [Mass/vol ume] in Blood [facility] Work Phone: Leukocytes [#/volume ] in Blood [facility] Work Phone: Mean corpuscular hemoglobin concentration determination [facility] Work Phone: Mean corpuscular hemoglobin determination [facility] Work Phone: Measurement of renal function [facility] Work Phone: Neutrophil count [facility] Work Phone: Neutrophil percent differential count [facility] Work Phone: Patient referral [facility] Work Phone: Platelets [#/volume] in Blood [facility] Work Phone: Potassium [Moles/vol ume] in Serum or Plasma [facility] Work Phone: Red blood cell count [facility] Work Phone: Red cell distributio n width determination [facility] Work Phone: Sodium [Moles/volume ] in Serum or Plasma [facility] Work Phone: Total protein measurement [facility] Work Phone: Urea nitrogen [Mass/volume] in Serum or Plasma [facility] Work Phone: Urine culture Urine Culture [facility] Work Phone: [facility] Payers Date Payer Category Payer Self-pay [id number] 2024 Medicaid [id number] 2021 Medicare 2021 Medicare (Managed Care) LOCATED WITHIN [facility] MEDICARE [id number] 2019 Medicaid [id number] 2019 Medicare [id number] 2019 Unknown [id number] 1955 Unknown [id number] Medicare [id number] Medicare [id number] Private Health Insurance Unknown [id number] Unknown [id number] Unknown [id number] Unknown [id number] Unknown [id number] Unknown [id number] Unknown [id number] Social History Date Type Detail Facility Start: 07-13-2016 End: 10-14-2024 Tobacco smoking status NHIS Never smoked tobacco [facility] Work Phone: Start: 08-13-2021 End: 02-05-2025 Alcohol intake Current non-drinker of alcohol (finding) [facility] Start: 1955 Sex Assigned At Not on file [facility] Start: 12-15-2021 End: 07-27-2022 Exposure to SARS-CoV-2 (event) Not sure [facility] Start: 03-25-2021 End: 09-08-2022 Tobacco smoking status NHIS Unknown if ever smoked [facility] Start: 1955 Sex Assigned At Female [facility] Start: 07-13-2016 Tobacco use and exposure Smokeless tobacco non-user [facility] Start: 01-27-2024 End: 02-05-2025 History of Social function [facility] Start: 01-27-2024 End: 02-05-2025 Tobacco use panel [facility] National Score (1-100), lower number is lower risk Not on file [facility] Goals Date Patient Goal Desired Activity /State Functional Status Date Assessment Result Facility 09-09-2022 Functional status Bedrest [facility] Work Phone: 05-12-2022 Are you deaf, or do you have serious difficulty hearing No 05/12/2022 3:44 PM EDT Rosalba Lala RN No [facility] 05-12-2022 Are you blind, or do you have serious difficulty seeing, even when wearing glasses No 05/12/2022 3:44 PM EDT Rosalba Lala RN No [facility] 05-12-2022 Do you have serious difficulty walking or climbing stairs Yes 05/12/2022 3:44 PM EDT Rosalba Lala, BHAVESH Yes [facility] 05-12-2022 Do you have difficul ty dressing or bathing Yes 05/12/2022 3:44 PM EDT Rosalba Lala, BHAVESH Yes [facility] 05-12-2022 Because of a physica l, mental, or emotional condition, do you have difficulty doing errands alone such as visiting a physician's office or shopping Yes 05/12/2022 3:44 PM EDT Rosalba Lala RN Yes [facility] Mental Status Date Assessment Result Facility 09-09-2022 Cognitive function Voice/Name [facility] Work Phone: 09-08-2022 Cognitive function Level Of Cons ciousness Awake;Alert;Appropriate;Fol lows Commands [facility] Work Phone: 05-12-2022 Because of a physica l, mental, or emotional condition, do you have serious difficulty concentrating, remembering, or making decisions No 05/12/2022 3:44 PM EDT Rosalba Lala RN No [facility] Clinical Notes 12-25-2021 to 02-05-2025 Postletsean, Tiny Merlos APRN.VACCINE CUSTOMER REPRESENTATIVE - 02/05/2025 8:40 AM Marisela Tavarez PA-C - 01/27/2024 1:12 PM Jocelyne Nazario MD - 01/05/2023 3:00 PM Martha Murray PA-C - 07/27/2022 3:12 PM EST Note Date & Type Note Facility 02-05-2025 History of Present illness Narrative Images from the original note were not included. [facility] [place] [facility] ESTABLISHED UROLOGY VISIT 02/05/2025 9:00 AM PATIENT NAME: Shin Rojo DATE OF : 1955 TODAY'S DATE: 02/05/2025 Chief Complaint: Patient presents with: Follow Up: 1 year History of Present Illness: Ms. Rojo is a 69 year old female who presents to the office regarding chronic SPT. Patient was last seen in office on 01/27/2024 for the above issue. At this time, patient was doing well with SPT. Catheter last changed: 01/27/2025 Catheter is being changed by SNF every 20 days. SPT is flushed daily. 16 fr 30 cc balloon. Fever or chills: Denies Hematuria: Denies Denies significant sediment in urine. She enjoys coffee but gets nervous about the color of her urine with it. Review of Systems Constitutional: Negative for chills and fever. Genitourinary: See HPI Past Medical History: PAST MEDICAL HISTORY Diagnosis Date Anemia Atrial fibrillation (HCC) Functional quadriplegia (HCC) Hyperlipidemia Insomnia Lack of coordination Major depressive disorder Multiple sclerosis (HCC) Muscle weakness (generalized) Neurogenic bladder Pulmonary disease Retention of urine, unspecified 03/04/2018 Past Surgical History: PAST SURGICAL HISTORY Procedure Laterality Date PAST SURGICAL HISTORY OF nasal septum repair PAST SURGICAL HISTORY OF suprapubic catheter placement PAST SURGICAL HISTORY OF 2020 remove of bladder stone REMOVAL OF OVARY/TUBE(S) 05/11/2022 w/ removal of associated bilateral adnexal masses and sigmoid adhesion biopsy REPAIR INCISIONAL HERNIA,REDUCIBLE 1991 per patient left groin area Social History: Social History Tobacco Use Smoking status: Never Smokeless tobacco: Never Vaping Use Vaping status: Never Used Substance Use Topics Alcohol use: No Drug use: No Medications: Prior to Admission medications : Medication menthol/camphor (BIOFREEZE TOPICAL), Sig Apply to affected area., Start Date , End Date , Taking? , Authorizing Provider Provider, Cc Medication ibuprofen (MOTRIN) 600 mg tablet, Sig Take 1 tablet by mouth every 6 hours., Start Date 05/12/22, End Date , Taking? , Authorizing Provider Vero Bryant, DO Medication acetaminophen (TYLENOL) 325 mg tablet, Sig Take 2 tablets by mouth every 6 hours., Start Date 05/12/22, End Date , Taking? , Authorizing Provider Vero Bryant, DO Medication acetaminophen (TYLENOL) 500 mg tablet, Sig Take 1,000 mg by mouth., Start Date 03/10/21, End Date , Taking? , Authorizing Provider Provider, Ccf Medication atorvastatin (LIPITOR) 40 mg tablet, Sig Take 40 mg by mouth., Start Date 03/10/21, End Date , Taking? , Authorizing Provider Provider, Ccf Medication calcium carbonate 600 mg-cholecalciferol 400 units 600 mg-10 mcg (400 unit) tab, Sig Take by mouth., Start Date 03/10/21, End Date , Taking? , Authorizing Provider Provider, Ccf Medication famotidine (PEPCID) 20 mg tablet, Sig Take 20 mg by mouth., Start Date 03/10/21, End Date , Taking? , Authorizing Provider Provider, Ccf Medication ondansetron (ZOFRAN) 4 mg tablet, Sig Take by mouth., Start Date 03/10/21, End Date , Taking? , Authorizing Provider Provider, Ccf Medication Vitamin E, dl, acetate, (VITAMIN E) 400 unit capsule, Sig Take by mouth., Start Date 03/10/21, End Date , Taking? , Authorizing Provider Provider, Ccf Medication zinc oxide 20 % ointment, Sig Apply to affected area., Start Date 03/10/21, End Date , Taking? , Authorizing Provider Provider, Ccf Medication carboxymethylcellulose sodium (REFRESH OPHTHALMIC), Sig Use in eyes., Start Date , End Date , Taking? , Authorizing Provider Provider, Ccf Medication milk thistle/NAC/dandel/turmer (LIVER COMPLEX ORAL), Sig Take by mouth., Start Date , End Date , Taking? , Authorizing Provider Provider, Ccf Medication tiZANidine (ZANAFLEX) 2 mg tablet, Sig Take 2 mg by mouth., Start Date , End Date , Taking? , Authorizing Provider Provider, Ccf Medication multivitamin tablet, Sig Take 1 tablet by mouth once daily., Start Date , End Date , Taking? , Authorizing Provider Provider, Ccf Medication aspirin, enteric coated (ASPIRIN, ENTERIC COATED) 81 mg EC tablet, Sig Take 81 mg by mouth once daily., Start Date , End Date , Taking? , Authorizing Provider Provider, Ccf Medication loratadine (CLARITIN) 10 mg tablet, Sig Take 10 mg by mouth once daily., Start Date , End Date , Taking? , Authorizing Provider Provider, Ccf Medication cyanocobalamin (VITAMIN B-12) 1,000 mcg tab, Sig Take 1,000 mcg by mouth once daily., Start Date , End Date , Taking? , Authorizing Provider Provider, Ccf Medication baclofen (LIORESAL) 20 mg tablet, Sig Take 20 mg by mouth three times daily., Start Date , End Date , Taking? , Authorizing Provider Provider, Ccf Medication DOCUSATE SODIUM ORAL, Sig Take 100 mg by mouth as needed., Start Date , End Date , Taking? , Authorizing Provider Provider, Ccf Medication CRANBERRY FRUIT EXTRACT (CRANBERRY ORAL), Sig Take 400 mg by mouth twice daily., Start Date , End Date , Taking? , Authorizing Provider Provider, Ccf Medication Ascorbic Acid 1,000 mg tablet, Sig Take 1,000 mg by mouth twice daily., Start Date , End Date , Taking? , Authorizing Provider Provider, Ccf Medication menthol (BIOFREEZE) 4 % topical gel, Sig Apply 4 % to affected area as needed. , Start Date , End Date , Taking? , Authorizing Provider Provider, Ccf Medication HYDROcodone-acetaminophen (NORCO) 5-325 mg per tablet, Sig Take 1 tablet by mouth every 6 hours as needed for Pain., Start Date , End Date , Taking? , Authorizing Provider Provider, Ccf Medication melatonin 1 mg tab, Sig Take 1 mg by mouth at bedtime as needed., Start Date , End Date , Taking? , Authorizing Provider Provider, Ccf Medication magnesium hydroxide (MOM) 400 mg/5 mL suspension, Sig Take 30 mL by mouth once daily as needed for Constipation., Start Date , End Date , Taking? , Authorizing Provider Provider, Ccf Medication sodium chloride (AYR, OCEAN) 0.65 % nasal spray, Sig Use 1 Sheffield in the nose every 2 hours as needed., Start Date , End Date , Taking? , Authorizing Provider Provider, Ccf Medication lidocaine (LIDODERM) 5 %, Sig Apply 1 Patch as directed as needed. , Start Date , End Date , Taking? , Authorizing Provider Provider, Ccf Medication senna (SENOKOT) 8.6 mg tab, Sig Take 8.6 mg by mouth once daily as needed (Constipation)., Start Date , End Date , Taking? , Authorizing Provider Provider, Ccf Medication ergocalciferol 50,000 unit capsule (VITAMIN D2, DRISDOL), Sig Take 50,000 Units by mouth once each week., Start Date , End Date , Taking? , Authorizing Provider Provider, Ccf Medication gabapentin (NEURONTIN) 300 mg capsule, Sig Take 300 mg by mouth three times daily., Start Date , End Date , Taking? , Authorizing Provider Provider, Ccf ALLERGIES Allergen Reactions All Cillins [Other] Ciprofloxacin Mental Status Change Nadolol Unknown Penicillin V Rash Patient doubt having PCN allergy, states had amoxicillin ear drops was okay Pregabalin Unknown Problem List Reviewed: Yes Prior Notes Reviewed: Yes Vitals: Resp 16 Ht 160 cm (5' 3") Wt 72.6 kg (160 lb) BMI 28.34 kg/m Physical Exam Vitals reviewed. Constitutional: Appearance: Normal appearance. Genitourinary: Comments: 16 fr SPT with clear yellow urine to drainage bag Skin: General: Skin is warm and dry. Neurological: Mental Status: She is alert and oriented to person, place, and time. Psychiatric: Mood and Affect: Mood normal. Behavior: Behavior normal. Labs: Creatinine Date Value Ref Range Status 05/01/2022 0.58 0.58 - 0.96 mg/dL Final Radiology Review: No pertinent imaging to review. Procedure: N/A ASSESSMENT/PLAN: 1. Retention of urine, unspecified - ICD9: 788.20, ICD10: R33.9 - Patient here for 1 year follow-up - Overall doing well, no SPT difficulties at this time - Continue SPT changes every 20 days or sooner PRN for sediment/clogging with SNF - Continue flushing SPT daily - Continue to drink adequate fluids - Follow-up in one year or sooner PRN Tiny Garcia APRN.VACCINE CUSTOMER REPRESENTATIVE Return in about 1 year (around 02/05/2026). documented in this encounter [facility] 02-05-2025 Note HNO ID: [id number] Author: TINY GARCIA APRN.CNP Service: ? Author Type: Nurse Practitioner Type: Progress Notes Filed: 02/05/2025 09:06 Note Text: [facility] [place] [facility] ESTABLISHED UROLOGY VISIT 02/05/2025 9:00 AM PATIENT NAME: Shin Rojo DATE OF : 1955 TODAY'S DATE: 02/05/2025 Chief Complaint: Patient presents with: Follow Up: 1 year History of Present Illness: Ms. Rojo is a 69 year old female who presents to the office regarding chronic SPT. Patient was last seen in office on 01/27/2024 for the above issue. At this time, patient was doing well with SPT. Catheter last changed: 01/27/2025 Catheter is being changed by SNF every 20 days. SPT is flushed daily. 16 fr 30 cc balloon. Fever or chills: Denies Hematuria: Denies Denies significant sediment in urine. She enjoys coffee but gets nervous about the color of her urine with it. Review of Systems Constitutional: Negative for chills and fever. Genitourinary: See HPI Past Medical History: PAST MEDICAL HISTORY Diagnosis Date Anemia Atrial fibrillation (HCC) Functional quadriplegia (HCC) Hyperlipidemia Insomnia Lack of coordination Major depressive disorder Multiple sclerosis (HCC) Muscle weakness (generalized) Neurogenic bladder Pulmonary disease Retention of urine, unspecified 03/04/2018 Past Surgical History: PAST SURGICAL HISTORY Procedure Laterality Date PAST SURGICAL HISTORY OF nasal septum repair PAST SURGICAL HISTORY OF suprapubic catheter placement PAST SURGICAL HISTORY OF 2020 remove of bladder stone REMOVAL OF OVARY/TUBE(S) 05/11/2022 w/ removal of associated bilateral adnexal masses and sigmoid adhesion biopsy REPAIR INCISIONAL HERNIA,REDUCIBLE 1991 per patient left groin area Social History: Social History Tobacco Use Smoking status: Never Smokeless tobacco: Never Vaping Use Vaping status: Never Used Substance Use Topics Alcohol use: No Drug use: No Medications: Prior to Admission medications : Medication menthol/camphor (BIOFREEZE TOPICAL), Sig Apply to affected area., Start Date , End Date , Taking? , Authorizing Provider Provider, [place] Medication ibuprofen (MOTRIN) 600 mg tablet, Sig Take 1 tablet by mouth every 6 hours., Start Date 05/12/22, End Date , Taking? , Authorizing Provider Vero Bryant, DO Medication acetaminophen (TYLENOL) 325 mg tablet, Sig Take 2 tablets by mouth every 6 hours., Start Date 05/12/22, End Date , Taking? , Authorizing Provider Vero Bryant, DO Medication acetaminophen (TYLENOL) 500 mg tablet, Sig Take 1,000 mg by mouth., Start Date 03/10/21, End Date , Taking? , Authorizing Provider Provider, Ccf Medication atorvastatin (LIPITOR) 40 mg tablet, Sig Take 40 mg by mouth., Start Date 03/10/21, End Date , Taking? , Authorizing Provider Provider, Ccf Medication calcium carbonate 600 mg-cholecalciferol 400 units 600 mg-10 mcg (400 unit) tab, Sig Take by mouth., Start Date 03/10/21, End Date , Taking? , Authorizing Provider Provider, Ccf Medication famotidine (PEPCID) 20 mg tablet, Sig Take 20 mg by mouth., Start Date 03/10/21, End Date , Taking? , Authorizing Provider Provider, Ccf Medication ondansetron (ZOFRAN) 4 mg tablet, Sig Take by mouth., Start Date 03/10/21, End Date , Taking? , Authorizing Provider Provider, Ccf Medication Vitamin E, dl, acetate, (VITAMIN E) 400 unit capsule, Sig Take by mouth., Start Date 03/10/21, End Date , Taking? , Authorizing Provider Provider, Ccf Medication zinc oxide 20 % ointment, Sig Apply to affected area., Start Date 03/10/21, End Date , Taking? , Authorizing Provider Provider, Ccf Medication carboxymethylcellulose sodium (REFRESH OPHTHALMIC), Sig Use in eyes., Start Date , End Date , Taking? , Authorizing Provider Provider, Ccf Medication milk thistle/NAC/dandel/turmer (LIVER COMPLEX ORAL), Sig Take by mouth., Start Date , End Date , Taking? , Authorizing Provider Provider, Ccf Medication tiZANidine (ZANAFLEX) 2 mg tablet, Sig Take 2 mg by mouth., Start Date , End Date , Taking? , Authorizing Provider Provider, Ccf Medication multivitamin tablet, Sig Take 1 tablet by mouth once daily., Start Date , End Date , Taking? , Authorizing Provider Provider, Ccf Medication aspirin, enteric coated (ASPIRIN, ENTERIC COATED) 81 mg EC tablet, Sig Take 81 mg by mouth once daily., Start Date , End Date , Taking? , Authorizing Provider Provider, Ccf Medication loratadine (CLARITIN) 10 mg tablet, Sig Take 10 mg by mouth once daily., Start Date , End Date , Taking? , Authorizing Provider Provider, Ccf Medication cyanocobalamin (VITAMIN B-12) 1,000 mcg tab, Sig Take 1,000 mcg by mouth once daily., Start Date , End Date , Taking? , Authorizing Provider Provider, Ccf Medication baclofen (LIORESAL) 20 mg tablet, Sig Take 20 mg by mouth three times daily., Start Date , End Date , Taking? , Authoriz (more content not included)... [facility] 01-27-2024 History of Present illness Narrative ESTABLISHED PATIENT OFFICE VISIT HISTORY OF PRESENT ILLNESS: Shin Rojo is a 68 year old female, There were no vitals taken for this visit. with a PMH significant for yearly follow up. Pt with spt, gets flushed twice daily to prevent uti's, the flushes are working well, no leakage from below and no uti's. . LAB: Creatinine Date Value Ref Range Status 05/01/2022 0.58 0.58 - 0.96 mg/dL Final No results found for: "PSA" No results found for: "UGLUC", "UBILI", "UKET", "SPGR", "UHB", "UPH", "UPROT", "UROBIL", "NITRITES", "UWBC", "UCOLAP" MEDICATIONS: menthol/camphor (BIOFREEZE TOPICAL) Apply to affected area. atorvastatin (LIPITOR) 40 mg tablet Take 40 mg by mouth. calcium carbonate 600 mg-cholecalciferol 400 units 600 mg-10 mcg (400 unit) tab Take by mouth. famotidine (PEPCID) 20 mg tablet Take 20 mg by mouth. Vitamin E, dl, acetate, (VITAMIN E) 400 unit capsule Take by mouth. zinc oxide 20 % ointment Apply to affected area. multivitamin tablet Take 1 tablet by mouth once daily. aspirin, enteric coated (ASPIRIN, ENTERIC COATED) 81 mg EC tablet Take 81 mg by mouth once daily. cyanocobalamin (VITAMIN [...] 4 % to affected area as needed. sodium chloride (AYR, OCEAN) 0.65 % nasal spray Use 1 Sheffield in the nose every 2 hours as needed. lidocaine (LIDODERM) 5 % Apply 1 Patch as directed as needed. senna (SENOKOT) 8.6 mg tab Take 8.6 mg by mouth once daily as needed (Constipation). ergocalciferol 50,000 unit capsule (VITAMIN D2, DRISDOL) Take 50,000 Units by mouth once each week. gabapentin (NEURONTIN) 300 mg capsule Take 300 mg by mouth three times daily. ibuprofen (MOTRIN) 600 mg tablet Take 1 tablet by mouth every 6 hours. acetaminophen (TYLENOL) 325 mg tablet Take 2 tablets by mouth every 6 hours. acetaminophen (TYLENOL) 500 mg tablet Take 1,000 mg by mouth. ondansetron (ZOFRAN) 4 mg tablet Take by mouth. carboxymethylcellulose sodium (REFRESH OPHTHALMIC) Use in eyes. milk thistle/NAC/dandel/turmer (LIVER COMPLEX ORAL) Take by mouth. tiZANidine (ZANAFLEX) 2 mg tablet Take 2 mg by mouth. loratadine (CLARITIN) 10 mg tablet Take 10 mg by mouth once daily. HYDROcodone-acetaminophen (NORCO) 5-325 mg per tablet Take 1 tablet by mouth every 6 hours as needed for Pain. melatonin 1 mg tab Take 1 mg by mouth at bedtime as needed. magnesium hydroxide (MOM) 400 mg/5 mL suspension Take 30 mL by mouth once daily as needed for Constipation. Review of Systems HISTORIES PAST MEDICAL HISTORY [...] in no acute distress, well-hydrated, well nourished. and Wheelchair ASSESSMENT/PLAN: 1. Retention of urine, unspecified - ICD9: 788.20, ICD10: R33.9 Continue daily flushes as ordered Marisela Murray PA-C I spent a total of 20 minutes on the date of the service which included preparing to see the patient, [id number] patient care, completing clinical documentation, obtaining and/or reviewing separately obtained history, and counseling and educating the patient/family/caregiver. documented in this encounter [facility] 12-21-2023 Procedure note [facility] 01-05-2023 History of Present illness Narrative Gynecologic Oncology [facility] [place] [facility] Follow up visit Date of service: 01/05/2023 PROBLEM/CC: Shin Rojo presents for 6 month follow-up. HPI: Ms. Rojo is a 67 year old female with bilateral pelvic cystic masses referred for sales representative printing paper/onc evaluation. Today she is s/p 05/11/2022 BSO [...] a and B were reviewed at the [facility] gynecologic pathology consensus conference via telepathology [...] OCEAN) 0.65 % nasal spray Use 1 Sheffield in the nose every 2 hours as [...] (98.2 F) (Oral) Ht 160 cm (5' 3") SpO2 97% BMI 33.19 kg/m GENERAL: Patient [...] Not tender. Mild pitting edema. No phlebitis Batch Room Technician for exam: Yue Alcantara APRN, VACCINE CUSTOMER REPRESENTATIVE RESULTS: CA 125: 01/01/2022 = 19 U/mL [...] prior scans may have been done at [facility]. She had laboratory studies collected recently, [...] - march. 04/07/22: Karrie Colmenares DO, MARICARMENA, TRUCK SAFETY INSPECTOR PGY-2 67 year old female with bilateral [...] cystic structures were present but smaller -Given longterm presence of cysts and slow growth, low [...] direction and in the presence of Mikel Nazario MD. I, Mikel Nazario MD, agree that the above note, as documented by my scribe, accurately describes my encounter with the patient today. Electronically signed:Alex Gentile, Mikel Nazario MD, Physician, January 05, 2023 3:49 PM documented in this encounter [facility] 10-07-2022 Miscellaneous Notes Ok to send the order Patient with current SP tube. [facility] nurse calling for verbal orders to change amount of time catheter is flushed daily. Current order is to flush 3x day twice with saline and once with acetic acid. Patient would like to have the catheter flushed only twice daily. Once with saline and one with acetic acid. Please call [phone] and ask for nurse caring for patient. Yamilet Osman RN documented in this encounter [facility] 07-27-2022 History of Present illness Narrative ESTABLISHED PATIENT OFFICE VISIT HISTORY OF PRESENT ILLNESS: Shin Rojo is a 67 year old female, Ht 160 cm (5' 3") BMI 33.19 kg/m2 with a PMH significant [...] OCEAN) 0.65 % nasal spray Use 1 Sheffield in the nose every 2 hours as [...] which included preparing to see the patient, [id number] patient care, completing clinical documentation, and counseling and educating the patient/family/caregiver. documented in this encounter [facility] 07-02-2022 Miscellaneous Notes Please fax antibiotic script to facility. Marisela Murray PA-C documented in this encounter [facility] 06-26-2022 Miscellaneous Notes Crystal informed. They will fax results. Eugenio Yanez Ma signed Facility called stating that Shin is having a pink color to her urine and is complaining of pressure in her bladder. They are asking if you would like to do a urine culture? Pended if needed. Can you advise? Eugenio Yanez Ma Apostolic [phone] Alannah documented in this encounter [facility] 06-09-2022 History of Present illness Narrative Gynecologic Oncology [facility] [place] [facility] Post-Op Visit Date of service: 06/09/2022 PROBLEM/CC: Shin Rojo returns to the office today for her postoperative visit. HPI:Ms. Rojo is a 67 year old female with bilateral pelvic cystic masses referred for sales representative printing paper/onc evaluation. Today she is s/p 05/11/2022 BSO [...] a and B were reviewed at the [facility] gynecologic pathology consensus conference via telepathology [...] OCEAN) 0.65 % nasal spray Use 1 Sheffield in the nose every 2 hours as [...] (98.9 F) (Oral) Ht 160 cm (5' 3") SpO2 95% BMI 33.19 kg/m GENERAL: In [...] a and B were reviewed at the [facility] gynecologic pathology consensus conference via telepathology [...] - 99 mg/dL 106 High Comment: The [place] [employer] (ADA) provides guidance for cutoff [...] Standards of Medical Care in Diabetes 2016, [place] [employer]. Diabetes Care. 2016.39(Suppl 1). BUN [...] prior scans may have been done at [facility]. She had laboratory studies collected recently, [...] results - march. 04/07/22: Karrie Colmenares DO, MHA, TRUCK SAFETY INSPECTOR PGY-2 67 year old female with bilateral [...] cystic structures were present but smaller -Given long wall shear operator presence of cysts and slow growth, low [...] By signing my name below, I, Yen Aung, attest that this documentation has been prepared under the direction and in the presence of Mikel Nazario MD. I, Mikel Nazario MD, agree that the above note, as documented by my scribe, accurately describes my encounter with the patient today. Electronically signed:lAex Gentile, Mikel Nazario MD, Physician, June 09, 2022 10:17 AM documented in this encounter [facility] 05-01-2022 History of Present illness Narrative Summary: PAT RED DOT CC TEODORO please review with anesthesia and see if further optimization is needed before surgery. Thank you! Patient has sever MS, is non-ambulatory, wheelchair-domínguez in SNF using Brigitte superintendent refuse disposal, described below Recent unconfirmed EKG in paper [...] medication for cholesterol documented in this encounter [facility] 05-01-2022 History and physical note HISTORY [...] (N/A) at the request of Dr. Mikel Nazario for. My final recommendation will be communicated [...] Pre surgical testing HPI: Patient presents to PST for the above procedure. Shin is a [...] angina, CAD, chest pain, DVT/PE and recent MT. GI: Negative for: abdominal pain, hepatitis, liver disease, nausea and vomiting. : Positive for: indwelling catheter (SP catheter). Negative for: dysuria, flank pain and hematuria. YARD DRIVER: See HPI. Endocrine: Negative for: diabetes mellitus, [...] OCEAN) 0.65 % nasal spray Use 1 Sheffield in the nose every 2 hours as [...] 95 Temp 97 Resp 16 Ht 5' 2" (1.58m) Wt 170 lb (77.1kg) SpO2 95% [...] or any previous visit (from the past [id number] hour(s)). Assessment No problem-specific Assessment & Plan [...] testing ordered per surgeon. ABO ordered per ELECTRICAL TEST TECHNICIAN. Assessment/Plan Bilateral tubo-ovarian mass [N83.8] PLAN Diagnosis: [...] PM PAGER/CONTACT #: documented in this encounter [facility] 04-30-2022 Instructions Leo Fair APRN.CNP - 04/30/2022 6:02 PM EDT PATIENT PREOPERATIVE INSTRUCTIONS Your surgeon has scheduled for your procedure at this surgery center: [facility]: [phone], [address] [id number] Please enter through the main entrance and proceed to the blue elevators. The surgery revloc center is located to the left of [...] before scheduled surgery. Bring your Glucometer to [facility] if you are scheduled in [place] for [place]. If you have a stimulator, [...] or the morning of surgery. Use the [employer] body wash supplied to you along with [...] surgery. - YOU MUST HAVE A RESPONSIBLE HR ASSISTANT TAKE YOU HOME. A SPOT FACER, CAB OR UBER HR ASSISTANT CANNOT BE MADE A RESPONSIBLE HR ASSISTANT. - We recommend that a responsible person [...] of surgery. Orthopedic patients having surgery [facility] listed as outpatient should bring their walker into the building. Orthopedic patients having surgery [facility] listed as to be admitted should leave their walkers in the car or with a family member. Hibiclens provided Leo Fair APRN.CNP 04/30/22 documented in this encounter [facility] 04-24-2022 Miscellaneous Notes Returned patents call about rescheduling the PST, advised we rescheduled for 05/01/22 at 3 same location and she understood and the change helped her schedule. Kaycee Park 04/24/22 documented in this encounter [facility] 04-07-2022 History of Present illness Narrative Gynecologic Oncology [facility] Follow up visit Date of service: 04/07/2022 PROBLEM/CC: Shin Rojo presents for follow-up. HPI: Ms. Rojo is a 67 year old female with bilateral pelvic cystic masses referred for sales representative printing paper/onc evaluation. Diagnosis with MS at 56. Has [...] NASAL) 0.65 % nasal spray Use 1 Sheffield in the nose every 2 hours as [...] Adult) Pulse 90 Ht 158.8 cm (5' 2.5") SpO2 95% BMI 30.60 kg/m GENERAL: in [...] there is a cystic mass containing septations, 50b40s55 cm. Conclusion: hypoechoic pelvic mass, etiology undetermined. 12/25/2021 CT ABD/PEL IMPRESSION: 1. 14.8 x 9.8 x 9.8 cm complex septated cystic mass in the left adnexa. Adjacent to this lesion along the right side is a bilobed cystic mass measuring 3.9 x 6.1 x 3.9 cm. Ovarian neoplasm is a primary concern. YARD DRIVER consultation is recommended. 2. No ascites or [...] thorax: Subsegmental atelectasis/scarring at the lung bases. Mill Work (topogram) images: No additional findings 03/31/22 Transabdominal [...] prior scans may have been done at [facility]. She had laboratory studies collected recently, [...] office after US results - march. 04/07/22: 67 year old female with [...] cystic structures were present but smaller -Given long wall shear operator presence of cysts and slow growth, low [...] and is current for today. Karrie Colmenares DO, Sakina TRUCK SAFETY INSPECTOR PGY-2 04/07/2022 11:33 AM Patient examined and discussed with Dr. Nazario. documented in this encounter [facility] 03-10-2022 History of Present illness Narrative Gynecologic Oncology [facility] Follow up visit Date of service: 03/10/2022 PROBLEM/CC: Shin Rojo presents for follow-up. HPI: Ms. Rojo is a 67 year old female with bilateral pelvic cystic masses referred for sales representative printing paper/onc evaluation. Concerned about abdominal girth growth and [...] at 56. Has significantly lost muscle strength. alf insists she use a brigitte and wheelchair [...] NASAL) 0.65 % nasal spray Use 1 Sheffield in the nose every 2 hours as [...] (97.7 F) (Temporal) Ht 158.8 cm (5' 2.5") SpO2 96% BMI 30.60 kg/m GENERAL: arrived [...] extremities. Not tender. No ulcers or swelling. Batch Room Technician for exam: Mansi Jolly RESULTS: CA 125: 19 (lab adult reference [id number]). RESULTS: 12/04/21: Transabdominal US Suprapubic catheter. The uterus and ovaries are not identified. The bladder is empty. Superior to the catheter there is a cystic mass containing septations, 79o56x89 cm. Conclusion: hypoechoic pelvic mass, etiology undetermined. 12/25/2021 CT ABD/PEL IMPRESSION: 1. 14.8 x 9.8 x 9.8 cm complex septated cystic mass in the left adnexa. Adjacent to this lesion along the right side is a bilobed cystic mass measuring 3.9 x 6.1 x 3.9 cm. Ovarian neoplasm is a primary concern. YARD DRIVER consultation is recommended. 2. No ascites or [...] thorax: Subsegmental atelectasis/scarring at the lung bases. Mill Work (topogram) images: No additional findings ASSESSMENT & [...] prior scans may have been done at [facility]. She had laboratory studies collected recently, [...] after US results - march. D/w Dr. Nazario. Components of documentation from my notes was copied and pasted, documentation has been reviewed and edited as necessary and is current for today. SIGNATURE: Madeline Jolly DO PATIENT NAME: Shin Rojo DATE: 03/10/2022 TIME: 10:13 AM PAGER/CONTACT #: [id number] documented in this encounter [facility] 02-03-2022 History of Present illness Narrative Gynecologic Oncology [facility] Date of service: 02/03/2022 PROBLEM/CC: Shin Rojo presents for evaluation of ovarian mass. She has been referred by Dr. Nacho Navarrete Jr. due to urinary retention. HPI: [...] NASAL) 0.65 % nasal spray Use 1 Sheffield in the nose every 2 hours as [...] approximately 8-10 years with most recent being [facility] for about a year. She has been being followed with US for a cyst. She doesn't recall prior CT scans. Pelvic US at [facility] in November 2021 report isn't available [...] 36 C (96.8 F) (Temporal) Ht 5' 3" (1.6 m) Wt 170 lb (77.1 kg) [...] her left upper and lower extremity today. Batch Room Technician for exam: Blanca RESULTS: 12/25/2021 CT ABD/PEL IMPRESSION: 1. 14.8 x 9.8 x 9.8 cm complex septated cystic mass in the left adnexa. Adjacent to this lesion along the right side is a bilobed cystic mass measuring 3.9 x 6.1 x 3.9 cm. Ovarian neoplasm is a primary concern. YARD DRIVER consultation is recommended. 2. No ascites or [...] thorax: Subsegmental atelectasis/scarring at the lung bases. Mill Work (topogram) images: No additional findings No results [...] prior scans may have been done at [facility]. She had laboratory studies collected recently, [...] direction and in the presence of Mikel Nazario MD. Electronically signed:Alex Colin, February 03, 2022 2:56 PM I agree with the Chief Complaint, ROS, and Past Histories independently gathered by the clinical customer support coordinator and the remaining scribed note accurately describes my personal service to the patient. documented in this encounter [facility] 01-22-2022 History of Present illness Narrative ESTABLISHED PATIENT OFFICE VISIT HPI [...] NASAL) 0.65 % nasal spray Use 1 Sheffield in the nose every 2 hours as [...] retention (primary encounter diagnosis) Plan: Refer to sales representative printing paper/onc Prn with me Nacho Navarrete Jr, MD 01/22/2022 documented in this encounter [facility] 12-25-2021 History of Present illness Narrative Radiology Service Progress Note DATE [...] DEPARTMENT: CT; Exam(s) Completed: Abdomen/Pelvis SIGNATURE: RT Jennifer(R) PATIENT NAME: Shin Rojo DATE: December 25, 2021 TIME: 12:32 PM documented in this encounter [facility] Evaluation note No assessment information [facility] Work Phone: Evaluation note Diagnosis Urinary retention- Primary Retention of urine, unspecified [facility] Diagnosis MS (multiple sclerosis) (HCC)- Primary Multiple sclerosis Bilateral tubo-ovarian mass Retention of urine, unspecified [facility] Diagnosis Bilateral tubo-ovarian mass- Primary MS (multiple sclerosis) (HCC) Multiple sclerosis Retention of urine, unspecified [facility] Diagnosis Pelvic mass in female- Primary Abdominal or pelvic swelling, mass or lump, unspecified site Multiple sclerosis (HCC) Multiple sclerosis Complete immobility due to severe physical disability or frailty (HCC) Functional quadriplegia Bilateral tubo-ovarian mass [facility] Diagnosis Bilateral tubo-ovarian mass- Primary Bilateral tubo-ovarian mass [facility] Diagnosis Pre-op testing- Primary Preoperative examination, unspecified Iron deficiency anemia, unspecified iron deficiency anemia type [D50.9 (ICD-10-CM)] Mixed hyperlipidemia [E78.2 (ICD-10-CM)] Mixed hyperlipidemia Multiple sclerosis (HCC) [G35 (ICD-10-CM)] Multiple sclerosis 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)] Bilateral tubo-ovarian mass [facility] Diagnosis Multiple sclerosis (HCC)- Primary Multiple sclerosis Complete immobility due to severe physical disability or frailty (HCC) Functional quadriplegia 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) [facility] Diagnosis Urinary retention- Primary Retention of urine, unspecified [facility] Diagnosis Retention of urine, unspecified- Primary documented in this encounter [facility] note* Diagnosis Onset Date Resolution Status COVID-19 acute Depression acute History of atrial fibrillation acute Hypoxia acute Multiple sclerosis acute COPD (chronic obstructive pulmonary disease) chronic [facility] Work Phone: Evaluation note* Diagnosis Onset Date Resolution Status Depression acute History of atrial fibrillation acute COPD (chronic obstructive pulmonary disease) chronic COVID-19 resolved Hypoxia resolved [facility] Work Phone: Evaluation note* Diagnosis 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)- Primary Complete immobility due to severe physical disability or frailty (HCC) Functional quadriplegia Multiple sclerosis (HCC) Multiple sclerosis [facility]* Diagnosis Retention of urine, unspecified- Primary documented in this encounter [facility] note* Diagnosis Retention of urine, unspecified- Primary documented in this encounter [facility] for referral (narrative)* Diagnostic Procedure Only (Routine) - Authorized Specialty Diagnoses / Procedures Referred By Ludy gant Referred To Contact US IMAGING Diagnoses Bilateral tubo-ovarian mass Procedures US FEMALE PELVIS TRANSABD COMPLETE US PELVIC NONOBSTETRIC REAL-TIME IMAGE COMPLETE Yue Rios, VACCINE CUSTOMER REPRESENTATIVE [address] [place] [address] Us Imaging Referral ID Status Reason Start Date Expiration Date Visits Requested Visits Authorized [id number] Authorized Auto-Generat ed Referral 03/24/2022 04/09/2023 1 1 [facility] for referral (narrative)No reason for referral information [facility] Work Phone: Reason for visit Narrative* Diagnostic Procedure Only (Routine) - Closed Specialty Diagnoses / Procedures Referred By Ludy gant Referred To Contact RADIO CT SCAN [facility] Diagnoses Bladder Mass pt will have order Procedures CT ABDOMEN W & W/O CONTRAST CT WWO ABD1 [address] Scan [facility] [address] [facility] [place] [address] Referral ID Status Reason Start Date Expiration Date Visits Re quested Visits Authorized [id number] Closed 12/25/2021 03/19/2022 1 1 [facility] Summary Purpose Family History No Family History Records FoundNo Family History Records FoundNo Family History Records FoundNo Family History Records FoundNo Family History Records FoundNo Family History Records FoundNo Family History Records Found Advance Directives No Advanced Directives Records Found Advance Directive Response Recorded Date/ Time Living Will No March 25, 2021 5 :45pm Power of Poultry Dresser No March 25, 2021 5:45pm Advance Directive Response Recorded Date/ Time Living Will No March 25, 2021 4 :45pm Power of Poultry Dresser No March 25, 2021 4:45pm Advance Directive Response Recorded Date/ Time Name of Medical Power of Poultry Dresser WOJCIECH ROJO September 08, 2022 4:02am Living Will No September 08 4:02am Power of Poultry Dresser Yes September 08, 2022 4:02am Advance Directive Response Recorded Date/ Time Name of Medical Power of Poultry Dresser WOJCIECH ROJO September 08, 2022 4:02am Living Will No September 08 8:44am Power of Poultry Dresser No September 08, 2022 8:44am Advance Directive Response Recorded Date/ Time Living Will No September 08 9:44am Power of Poultry Dresser No September 08, 2022 9:44am Advance Directive Response Recorded Date/ Time Living Will No September 08 8:44am Power of Poultry Dresser No September 08, 2022 8:44am Chief Complaint and Reason for Visit Chief Complaint DETENTION LABWORK DETENTION LABWORK Chief Complaint DETENTION LABWORK DETENTION LABWORK DETENTION LABWORK Chief Complaint DETENTION LABWORK LABWORK DETENTION LAB WORK Chief Complaint DETENTION LABWORK LABWORK DETENTION LAB WORK DETENTION LAB WORK Chief Complaint DETENTION LABWORK LABWORK DETENTION LAB WORK Chief Complaint DETENTION LABWORK LABWORK DETENTION LAB WORK FEVER COVID 19 INFECTION IWTH HYPOXIA Reason for Visit COVID-19 Depression History of atrial fibrillation Hypoxia Multiple sclerosis COPD (chronic obstructive pulmonary disease) Chief Complaint DETENTION LABWORK LABWORK DETENTION LAB WORK FEVER COVID 19 INFECTION WITH HYPOXIA COVID 19 INFECTION WITH HYPOXIA Reason for Visit COVID-19 Depression History of atrial fibrillation Hypoxia Multiple sclerosis COPD (chronic obstructive pulmonary disease) Chief Complaint DETENTION LABWORK LABWORK DETENTION LAB WORK FEVER COVID 19 INFECTION WITH HYPOXIA COVID 19 INFECTION WITH HYPOXIA DETENTION LAB WORK Reason for Visit Depression History of atrial fibrillation COPD (chronic obstructive pulmonary disease) COVID-19 Hypoxia Chief Complaint DETENTION LAB WOR K FEVER COVID 19 INFECTION WITH HYPOXIA COVID 19 INFECTION WITH HYPOXIA DETENTION LAB WORK DETENTION LABWORK Reason for Visit Depression History of atrial fibrillation COPD (chronic obstructive pulmonary disease) COVID-19 Hypoxia Chief Complaint DETENTION LAB WOR K DETENTION LABWORK DETENTION LAB WORK LABWORK Chief Complaint LABWORK DETENTION LAB WORK Chief Complaint DETENTION LAB WOR K LABWORK Chief Complaint LABWORK DETENTION JENIFER WORK Chief Complaint DETENTION JENIFER WOR K DETENTION LAB WORK Chief Complaint DETENTION JENIFER WOR K DETENTION LAB WORK DETENTION LAB WORK Chief Complaint DETENTION JENIFER WOR K DETENTION LAB WORK DETENTION LAB WORK DETENTION LAB WORK Chief Complaint DETENTION JENIFER WOR K DETENTION LAB WORK DETENTION LAB WORK DETENTION LAB WORK DYSPHAGIA Chief Complaint DETENTION LAB WOR K DETENTION LAB WORK LABWORK DYSPHAGIA Chief Complaint Admit Date DETENTION LAB WORK October 24, 2024 5:00am DETENTION LAB WORK January 16, 2025 4 :00am Additional Source Comments INFORMATION SOURCE (unrecogn ized section and content) DATE CREATED AUTHOR 04/10/2018 [facility] DATE CREATED AUTHOR AUTHOR'S ORGANIZ ATION 11/19/2018 [facility] DATE CREATED AUTHOR AUTHOR'S ORGANIZ ATION 01/09/2019 [facility] ([place]) DATE CREATED AUTHOR AUTHOR'S ORGANIZ ATION 04/08/2020 [facility] DATE CREATED AUTHOR AUTHOR'S ORGANIZ ATION 09/02/[address] [facility] DATE CREATED AUTHOR AUTHOR'S ORGANIZ ATION 02/05/2025 [facility] DATE CREATED AUTHOR AUTHOR'S ORGANIZ ATION 03/14/2025 [facility] Source Comments (unrecognize d section and content) In the event this informatio n is protected by the Federal Confidentiality of Alcohol and Drug Abuse Patient Records regulations: The Federal rules restrict any use of the information to criminally investigate or prosecute any alcohol or drug abuse patient.[facility] the event this information is protected by the Federal Confidentiality of Alcohol and Drug Abuse Patient Records regulations: The Federal rules restrict any use of the information to criminally investigate or prosecute any alcohol or drug abuse patient.[facility] HospitalIn the event this information is protected by the Federal Confidentiality of Alcohol and Drug Abuse Patient Records regulations: The Federal rules restrict any use of the information to criminally investigate or prosecute any alcohol or drug abuse patient.[facility] the event this information is protected by the Federal Confidentiality of Alcohol and Drug Abuse Patient Records regulations: The Federal rules restrict any use of the information to criminally investigate or prosecute any alcohol or drug abuse patient.[facility] HospitalIn the event this information is protected by the Federal Confidentiality of Alcohol and Drug Abuse Patient Records regulations: The Federal rules restrict any use of the information to criminally investigate or prosecute any alcohol or drug abuse patient.[facility] HospitalIn the event this information is protected by the Federal Confidentiality of Alcohol and Drug Abuse Patient Records regulations: The Federal rules restrict any use of the information to criminally investigate or prosecute any alcohol or drug abuse patient.[facility] HospitalIn the event this information is protected by the Federal Confidentiality of Alcohol and Drug Abuse Patient Records regulations: The Federal rules restrict any use of the information to criminally investigate or prosecute any alcohol or drug abuse patient.[facility] Hospital[facility] the event this information is protected by the Federal Confidentiality of Alcohol and Drug Abuse Patient Records regulations: The Federal rules restrict any use of the information to criminally investigate or prosecute any alcohol or drug abuse patient.[facility] HospitalIn the event this information is protected by the Federal Confidentiality of Alcohol and Drug Abuse Patient Records regulations: The Federal rules restrict any use of the information to criminally investigate or prosecute any alcohol or drug abuse patient.[facility] HospitalIn the event this information is protected by the Federal Confidentiality of Alcohol and Drug Abuse Patient Records regulations: The Federal rules restrict any use of the information to criminally investigate or prosecute any alcohol or drug abuse patient.[facility] HospitalIn the event this information is protected by the Federal Confidentiality of Alcohol and Drug Abuse Patient Records regulations: The Federal rules restrict any use of the information to criminally investigate or prosecute any alcohol or drug abuse patient.[facility] HospitalIn the event this information is protected by the Federal Confidentiality of Alcohol and Drug Abuse Patient Records regulations: The Federal rules restrict any use of the information to criminally investigate or prosecute any alcohol or drug abuse patient.[facility] HospitalIn the event this information is protected by the Federal Confidentiality of Alcohol and Drug Abuse Patient Records regulations: The Federal rules restrict any use of the information to criminally investigate or prosecute any alcohol or drug abuse patient.[facility] HospitalIn the event this information is protected by the Federal Confidentiality of Alcohol and Drug Abuse Patient Records regulations: The Federal rules restrict any use of the information to criminally investigate or prosecute any alcohol or drug abuse patient.[facility] HospitalIn the event this information is protected by the Federal Confidentiality of Alcohol and Drug Abuse Patient Records regulations: The Federal rules restrict any use of the information to criminally investigate or prosecute any alcohol or drug abuse patient.[facility] HospitalIn the event this information is protected by the Federal Confidentiality of Alcohol and Drug Abuse Patient Records regulations: The Federal rules restrict any use of the information to criminally investigate or prosecute any alcohol or drug abuse patient.[facility] HospitalIn the event this information is protected by the Federal Confidentiality of Alcohol and Drug Abuse Patient Records regulations: The Federal rules restrict any use of the information to criminally investigate or prosecute any alcohol or drug abuse patient.[facility] Care Teams (unrecognized sec tion and content) Team Status: Active Member Role Status Dates Out of [facility] Doctor Primary Care Provider Active Team Status: Active Member Role Status Dates Out of [facility] Doctor Primary Care Provider Active Start: October 24, 2024 Twan JACKSON MD Attending Provider Active S tart: October 24, 2024 Team Status: Inactive Member Role Status Dates Out of [facility] Doctor Primary Care Provider Active Start: January 16, 2025 End: January 16, 2025 Twan JACKSON MD Attending Provider Active S tart: January 16, 2025 End: January 16, 2025 Twan JACKSON MD Referring Provider Active S tart: January 16, 2025 End: January 16, 2025 Team Status: Inactive Member Role Status Dates Twan JACKSON MD Primary Care Provider, Attending Provider Active Team Status: Inactive Member Role Status Dates Twan JACKSON MD Primary Care Provid er, Attending Provider, Referring Provider Active Team Status: Active Member Role Status Dates Out of [facility] Doctor Primary Care Provider Active Twan JACKSON MD Attending Provider Active Team Status: Inactive Member Role Status Dates BRITTANI ARORA Primary Care Provide r, Attending Provider, Referring Provider Active Team Status: Active Member Role Status Dates Twan JACKSON MD Primary Care Provider Active 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 [address] PCP - General Family Practice 07/15/21 Electrician Sound Relationship Specialty Start Date End Date [facility] [address] PCP - General Family Practice 07/15/21 Electrician Sound Relationship Specialty Start Date [place] [address] PCP - General Family Practice 07/15/21 Electrician Sound Relationship Specialty Start Date End Date Portillo [facility] [place] [address] PCP - General Family Practice 07/15/21 [employer] Relationship Specialty Start [place] [address] PCP - General Family Practice 07/15/21 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 [employer] Relationship Specialty Start [place] [address] PCP - General Family Practice 07/15/21 Electric[employer] Relationship Specialty Start [place] [address] PCP - General Family Practice 07/15/21 Electrician [employer] Relationship Specialty Start [place] [address] PCP - General Family Practice 07/15/21 Electrician [employer] Relationship Specialty Start [place] [address] PCP - General Family Medicine 07/15/21 Electrician [employer] Relationship Specialty Start Date [place] [address] PCP - General Family Medicine 07/15/21 Electric[employer] Relationship Specialty Start Date [place] [address] PCP - General Family Medicine 07/15/21 [employer] Relationship Specialty Start Date [place] [address] PCP - General Family Medicine 07/15/21 Team Status: Active Member Role Status Dates Twan Guerrero MD Primary Care Provider Active Team Status: Active Member Role Status Dates Dr. Portillo Trujillo DO Primary Care Provider Active Dr. Vern Mcintosh , DO Emergency Provider Active Dr. Wojciech Hodge MD Attending Provider Active Team Status: Active Member Role Status Dates Dr. Portillo Trujillo DO Primary Care Provider Active Dr. Vern Mcintosh , DO Emergency Provider Active Dr. Wojciech Hodge MD Admit Provider, Other Provider A ctive Dr. Maco Blackmon MD Attending Provider, Other Provider Active Dr. Gail Houston , Other Provider Active Team Status: Inactive Member Role Status Dates Dr. Portillo Trujillo DO Primary Care Provider Active Portillo Trujillo Attending Provider Active Team Status: Inactive Member Role Status Dates Dr. Portillo Trujillo DO Primary Care Provider Active Dr. Vern Mcintosh , DO Emergency Provider Active Dr. Wojciech Hodge MD Admit Provider, Other Provider A ctive Dr. Maco Blackmon MD Attending Provider Active Dr. Gail Houston , DO Other Provider Active Team Status: Active Member Role Status Dates Dr. Portillo Trujillo DO Primary Care Provider Active Portillo Trujillo Attending Provider Active Team Status: Inactive Member Role Status Dates Twan Guerrero MD Primary Care Provide r, Attending Provider, Referring Provider Active Team Status: Inactive Member Role Status Dates Twan Guerrero MD Primary Care Provider, Attending Pro vider Active Team Status: Active Member Role Status Dates Dr. Portillo Trujillo DO Primary Care Provider Active Portillo JACKSON Attending Provider Active Team Status: Active Member Role Status Dates Twan Cesar JACKSON MD Primary Care Provider, Attending Provider Active [employer] Relationship Specialty Start Date End Date Portillo Trujillo DO [address] [place] [address] PCP - General Family Medicine 07/15/21 [employer] Relationship Specialty Start Date End Date Portillo Trujillo DO [address] [place] [address] PCP - General Family Medicine 07/15/21 Goals (unrecognized section and content) Goals may be documented in a n alternate sectionGoals may be documented in an alternate sectionGoals may be documented in an alternate sectionGoals may be documented in an alternate sectionGoals may be documented in an alternate sectionGoals may be documented in an alternate sectionGoals may be documented in an alternate sectionGoals may be documented in an alternate sectionGoals may be documented in an alternate sectionGoals may be documented in an alternate sectionGoals may be documented in an alternate sectionGoals may be documented in an alternate sectionGoals may be documented in an alternate sectionGoals may be documented in an alternate sectionGoals may be documented in an alternate sectionGoals may be documented in an alternate sectionGoals may be documented in an alternate sectionGoals may be documented in an alternate sectionGoals may be documented in an alternate sectionGoals may be documented in an alternate sectionGoals may be documented in an alternate sectionGoals may be documented in an alternate section Reason for Visit (unrecogniz ed section and content) Reason Comments Urinary Retention Reason Comments New Patient Reason Comments Established Patient Reason Comments Established Patient Reason Comments Preparations For Surgery Returning Patient's Call Reason Comments Post Op Reason Comments Patient Update Reason Comments Results Reason Comments retention of urine Reason Comments Orders Reason Comments Follow Up Reason Comments Follow Up 1 year FOR RECORDS PERTAINING TO PATIENTS WHO ARE [...] BE BASED ON THE PRIMARY CLINICAL RECORDS. [facility] [employer] [facility]. provides no warranty or guarantee of the accuracy or completeness of information in this document.
[2025-04-10 09:02] LABS: Cholesterol 128 mg/dL (<=200); Low Density Lipoprotein Calc. 50 mg/dL; Triglycerides 229 mg/dL; Very Low Density Lipoprotein 46 mg/dL (5-40); cholesterol:hdl ratio screen 4.01
== END ==
LOC: OLS.ACH 05:00
PROVIDERS: Visit Provider Internal Medicine
DX: G35 Multiple sclerosis (principal); E78.49 Other hyperlipidemia; I10 Essential (primary) hypertension
CPT/HCPCS: 36415; 80061

== ENCOUNTER → 2025-07-03 05:00 | Outpatient (REF) | payer MEDICARE, MEDICAID, SELFPAY ==
[2025-07-03 10:00] LABS: Cholesterol 142 mg/dL (<=200); Low Density Lipoprotein Calc. 60 mg/dL; Triglycerides 243 mg/dL; Very Low Density Lipoprotein 49 mg/dL (5-40); Vitamin B12 1155 pg/mL (180-914); cholesterol:hdl ratio screen 4.25
== END ==
LOC: OLS.ACH 05:00
PROVIDERS: Visit Provider Internal Medicine
DX: D50.8 Other iron deficiency anemias (principal); E78.49 Other hyperlipidemia
CPT/HCPCS: 36415; 80061; 82607

== ENCOUNTER → 2025-08-13 05:00 | Outpatient (REF) | payer MEDICARE, MEDICAID, SELFPAY ==
--- OUTSIDE RECORDS SUMMARY | 2025-08-13 04:04 | XMS RPT_ITS | CCD ---
Author Organization [facility] Care Team Providers Care Weave Defect Charting Clerk Name Role Phone KOVINK, MARISELA Unavailable Unavailable [...] Care Provider Dr. Vern Mcintosh Emergency Provider Dr. Wojciech Hodge Attending Provider Dr. Wojciech Hodge Admit Provider Dr. Wojciech Hodge Other Provider Dr. Maco Blackmon Attending Provider [phone] Dr. Maco Blackmon Other Provider Dr. Gail Houston Other Provider Portillo Trujillo Primary Care Provider [phone] Portillo Trujillo DO Primary Care Provider [phone] Ronnie MACEDO Portillo Pressley Primary Care Provide r POSTLETHLISETTE, TINY MERLOS Attending Lamarva MARISELA Almeida Referring Unavailable RONNIE PORTILLO PRESSLEY Primary Care Unavail able Town Doctor, Out of Primary Care Provider Sherron Guerrero MD, Twan Attending Provider Unavailable Cesar MD, Twan Referring Provider Unavailable Town Doctor, Out of Primary Care Physician Leonila Guerrero MD, Twan Attending Physician Unavailable Deperro OLS, Twan Referring Unavailable Town Doctor, Out of Primary Care Unavailable Deperro OLS, Twan Attending Unavailable Town Doctor, Out of Primary Care Unavailable Deperro OLS, Twan Attending Unavailable Town Doctor, Out of Primary Care Unavailable Deperro OLS, Twan Attending Unavailable Abel Wang Attending Unavailable Town Doctor, Out of Primary Care Unavailable Town Doctor, Out of Primary Care Unavailable Deperro OLS, Twan Attending Unavailable Town Doctor, Out of Primary Care Unavailable Deperro OLS, Twan Attending Unavailable Town Doctor, Out of Primary Care Unavailable Deperro OLS, Twan Attending Unavailable Allergies Allergy Classification Reported Allergen(s) Allergy Type Date of Onset Reaction(s) Facility (20 sources) ciprofloxacin; Translations: [CIPROFLOXACIN] Drug Allergy 6 Mental Status Change [facility] Repository (20 sources) nadolol; Translations: [NADOLOL] Drug Allergy 6 Unknown [facility] Repository (19 sources) penicillin; Translations: [PENICILLIN V] Drug Allergy 3 Rash [facility] Repository (20 sources) pregabalin; Translations: [PREGABALIN] Drug Allergy 6 Unknown [facility] Repository (2 sources) OTHER; Translations: [OTHER] Propensity to adverse reactions (disorder) 3 [facility] Repository (17 sources) All Cillins [Other] Propensity to adverse reactions 3 [facility] (20 sources) Penicillins; Translations: [Penicillins] Allergy to substance 1 PT UNSURE OF REACTION [facility] Medications Current Medications Medication Drug Class(es) Dates Sig (Normalized) Sig (Original) acetaminophen 325 mg oral tablet (20 sources) Start: 05-12-2022 take 2 tablets by mouth every six hours acetaminophen (TYLENOL) 325 mg tablet Take 2 tablets by mouth every 6 hours. 240 tablet 05/12/2022 Active Start: 03-10-2021 take 2 tablets by mo uth every six hours as needed for pain Start: 03-10-2021 take 1000 mg by mout h every six hours Acetaminophen Active 1000 MG PO EVERY 6 HOURS March 10, 2021 12:00am Comment on above: Take 1,000 mg by radhames th. Take 2 tablets by mo uth every 6 hours. acetaminophen 325 mg / HYDRO codone bitartrate 5 mg oral tablet (20 sources) Opioid Agonist Start: 03-10-2021 Start: 03-10-2021 take 1 tablet by radhames th every six hours Hydrocodone-Acetaminophen Active 1 TABLE T PO EVERY 6 HOURS March 10, 2021 12:00am Comment on above: Take 1 tablet by radhames th every 6 hours as needed for Pain. Amino Acids-Protein Hydrolys (Liquacel) 16-100 gram-kcal/30 mL liquid (2 sources) Start: 10-14-2024 Start: 10-14-2024 Amino Acids-Pr otein Hydrolys (Liquacel) 16-100 gram-kcal/30 mL liquid Active 30 mL PO TWICE A DAY October 14, 2024 1:00am ascorbic acid 500 mg oral tablet (20 sources) Vitamin C Start: 03-10-2021 take 1 tablet by radhames th once daily Start: 03-10-2021 take 1 tablet by radhames [...] take 1 tablet by mouth once daily Comment on above: Take 81 mg by mouth once daily. atorvastatin 40 mg oral tablet (20 sources) HMG-CoA Reductase Inhibitor Start: 03-10-20 take 1 tablet by mouth at bedtime Comment on above: Take 40 mg by mouth. baclofen 20 mg oral tablet (20 sources) gamma-Aminobutyric Acid-ergic Agonist Start: 03-10-20 take 1 tablet by mouth three times daily Comment on above: Take 20 mg by mouth three times daily. calcium carbonate 1500 mg / cholecalciferol 0.01 mg oral tablet (20 sources) Vitamin D Start: 03-10-20 calcium carbonate 600 mg-cholecalcifero l 400 units 600 mg-10 mcg (400 unit) tab Take by mouth. 03/10/2021 Active Start: 03-10-2021 calcium carbon ate 600 mg-cholecalciferol 400 units 600 mg-10 mcg (400 unit) tab Take by mouth. 0 03/10/2021 Active Start: 03-10-2021 Comment on above: Take by mouth. camphor 0.002 mg/mg / mentho l 0.035 mg/mg topical gel (20 sources) Start: 03-10-2021 Start: 03-10-2021 Camphor-Mentho l Active 1 APPLIC TOPICAL DAILY March 10, 2021 12:00am Carboxymethylcellulose (14 sources) carboxymethylcel lulose sodium (REFRESH OPHTHALMIC) Use in eyes. Active carboxymethylcel lulose sodium (REFRESH OPHTHALMIC) Use in eyes. 0 Active Comment on above: Use in eyes. cholecalciferol 0.05 mg oral capsule (20 sources) Vitamin D Start: 03-10-2021 take 1 capsule by mouth once daily CRANBERRY FRUIT EXTRACT (CRANBERRY ORAL) (17 sources) [...] tablet by mouth twice daily at mealtime Start: 10-14-2024 take 1 tablet by radhames th twice daily at mealtime Cranberry Fruit (Cranberry) 450 mg tablet Active 450 mg PO TWICE A DAY October 14, 2024 1:00am administer with meals Start: 03-10-2021 take 400 mg by mouth twice david ly Cranberry Active 400 MG PO TWICE A DAY March 10, 2021 3:00pm Start: 03-10-2021 End: 10-14-2024 take 1 capsule by mouth twice daily Cranberry Fruit 400 mg Capsule Discontinued 400 mg PO TWICE A DAY March 10, 2021 12:00am October 14, 2024 8:31am Start: 03-10-2021 take 400 mg by mouth twice david ly Cranberry Active 400 MG PO TWICE A DAY March 09, 2021 11:00pm Start: 03-10-2021 take 400 mg by mouth twice david ly Cranberry Active 400 MG PO TWICE A DAY March 10, 2021 12:00am cyclobenzaprine hydrochloride 10 mg oral tablet (20 sources) Muscle Relaxant Start: 03-10-2021 take 1 tablet by mouth three times daily as needed for muscle spasms dextromethorphan hydrobromide 2 mg/ml / guaiFENesin 20 mg/ml oral solution (20 sources) Uncompetitive N-pooqfz-X-aspartate Receptor Antagonist, Sigma-1 Agonist Start: 03-10-2021 take 1 mL by mouth every four hours as needed for cough Start: 03-10-2021 take 1 mL by mouth every four hours Dextromethorphan-Guaifenesin Active 10 M L PO Q4H March 10, 2021 12:00am docusate sodium 100 mg oral capsule (20 sources) Start: 03-10-2021 take 1 capsule by mo [facility] once daily as needed for constipation DOCUSATE SODIUM ORAL Take 100 mg by mouth as needed. Active Comment on above: Take 100 mg by mouth as needed. doxycycline hyclate 100 mg oral capsule (2 sources) Tetracycline-class Drug Start: 10-14-19 take 1 capsule by mouth twice daily ergocalciferol 1.25 mg oral capsule (17 sources) Provitamin D2 Compound take 1 capsule by mouth every week ergocalciferol 50,000 unit capsule (VITAMIN D2, DRISDOL) Take 50,000 Units by mouth once each week. Active Comment on above: Take 50,000 Units by mouth once each week. ezetimibe 10 mg oral tablet (11 sources) Dietary Cholesterol Absorption Inhibitor Start: 10-14-19 take 1 tablet by mouth once daily take 1 tablet by radhames th once daily at bedtime ezetimibe (ZETIA) 10 mg tablet Take 10 m g by mouth daily at bedtime. 0 Active Comment on above: Take 10 mg by mouth daily at bedtime. famotidine 20 mg oral tablet (20 sources) Histamine-2 Receptor Antagonist Start: 03-10-2021 take 1 tablet by mouth at bedtime Comment on above: Take 20 mg by mouth. gabapentin 300 mg oral capsule (20 sources) Anti-epileptic Agent Start: 10-14-2024 take 1 capsule by mouth once daily Start: 03-10-2021 End: 10-14-2024 take 1 tablet by mouth twice daily Gabapentin 400 mg Tablet Discontinued 400 mg PO TWICE A DAY March 10, 2021 12:00am October 14, 2024 8:26am take 1 capsule by mo [facility] three times daily gabapentin (NEURONTIN) 300 mg capsule Take 300 mg by mouth three times daily. Active Comment on above: Take 300 mg by mouth three times daily. 12 hr guaiFENesin 600 mg extended release oral tablet (20 sources) Start: 1 take 1 tablet by mouth every twelve hours as needed for congestion, then take 1 tablet by mouth every twelve hours as needed for congestion ibuprofen 600 mg oral tablet (20 sources) Nonsteroidal Anti-inflammatory Drug Start: 2 take 1 tablet by mouth every six hours ibuprofen (MOTRIN) 600 mg tablet Take 1 tablet by mouth every 6 hours. 120 tablet 05/12/2022 Active Start: 03-10-2021 take 1 tablet by radhames th every eight hours as needed for pain take 1 tablet by radhames th every eight hours as needed ibuprofen (MOTRIN) [...] take 1 capsule by mouth once daily take 1 tablet by mouth once bharat y loratadine (CLARITIN) 10 mg tablet Take 10 mg by mouth once daily. Active Comment on above: Take 10 mg by mouth once daily. magnesium citrate 58.2 mg/ml oral solution (20 sources) Start: 03-10-2021 take 1 mL by mouth once daily as needed for constipation Start: 03-10-2021 take 1 mL by mouth once daily Magnesium Citrate (Citrate Of Magnesia) Solution Active 150 ML PO DAILY March 10, 2021 12:00am magnesium hydroxide 80 mg/ml oral suspension (20 sources) Start: 03-10-2021 take 1 mL by mouth o nce daily as needed for constipation Start: 03-10-2021 take 1 mL by mouth o nce daily as needed for constipation Magnesium Hydroxide (Milk Of Magnesia) 400 mg/5 mL Suspension Active 30 mL PO DAILY as needed for Constipation March 10, 2021 12:00am Start: 03-10-2021 take 1 mL by mouth once daily Magnesium Hydroxide (Milk Of Magnesia) 400 mg/5 mL Suspension Active 30 ML PO DAILY March 10, 2021 12:00am Comment on above: Take 30 mL by [...] on above: Take by mouth. Multivitamin Capsule (2 sources) Start: 03-10-2021 Start: 03-10-2021 Multivitamin C apsule Active 1 NMA PO DAILY March 10, 2021 12:00am Multivitamin preparation (20 sources) Start: 03-10-2021 take 1 capsule by mouth once daily Multivitamin Active 1 CAP PO DAILY March 10, 2021 3:00pm Start: 03-10-2021 take 1 capsule by mo uth once daily Multivitamin Active 1 CAP PO DAILY March 09, 2021 11:00pm Start: 03-10-2021 take 1 capsule by mo [facility] once daily Multivitamin Active 1 CAP PO DAILY March 10, 2021 12:00am multivitamin tablet (17 sources) take 1 tablet by radhames th once daily multivitamin tablet Take 1 tablet by mouth once daily. Active take 1 tablet by mouth once bharat y multivitamin tablet Take 1 tablet by mouth once daily. 0 Active Comment on above: Take 1 tablet by radhames th once daily. oxymetazoline hydrochloride 0.5 mg/ml nasal spray (2 sources) Start: 5 pantoprazole 20 mg delayed release oral tablet (2 sources) Proton Pump Inhibitor Start: 5 take 1 tablet by mouth once daily polyethylene glycol 3350 32144 mg powder for oral solution (20 sources) Osmotic Laxative Start: 1 predniSONE 50 mg oral tablet (2 sources) Start: 5 take 1 tablet by mouth once daily pyridoxine (20 sources) Start: 1 take 200 mg by mouth once daily [...] March 10, 2021 12:00am Salt Moisturizing Solution 1 Mist (1 source) Start: 03-10-2021 Salt Moisturizing Solution N o1 (20 sources) [...] dry nares March 10, 2021 12:00am sennosides, nursing home 8.6 mg oral tablet (17 sources) take [...] OCEAN) 0.65 % nasal spray Use 1 [place] in the nose every 2 hours as needed. Active Comment on above: Use 1 [place] in the n ose every 2 hours [...] Comment on above: Take 1 tablet by [facility] twice daily for 7 days. tiZANidine 2 mg oral tablet (17 sources) Central alpha-2 Adrenergic Agonist tiZANidine (ZANAFLEX) 2 mg tablet Take 2 mg by mouth. Active Comment on above: Take 2 mg by mouth. trolamine salicylate (20 sources) Start: 03-10-2021 Aspercreme (lidocaine) Active 4 % TD NEEDED March 10, 2021 2:56pm Start: 03-10-2021 Start: 03-10-2021 Aspercreme (li docaine) Active 4 % TD NEEDED as needed for Pain March 10, 2021 12:00am Start: 03-10-2021 Aspercreme (li docaine) Active 4 % TD NEEDED March 09, 2021 11:00pm Start: 03-10-2021 Aspercreme (li docaine) Active 4 % TD NEEDED March 10, 2021 12:00am vitamin b12 0.5 mg oral tablet (20 sources) Vitamin B12 Start: 10-14-2024 take 1 tablet by radhames th once daily Start: 10-14-2024 take 1 tablet by radhames th once daily Cyanocobalamin (Vitamin B-12) 500 mcg tablet Active 500 ug PO DAILY October 14, 2024 1:00am Start: 03-10-2021 End: 10-14-2024 take 1 capsule by mouth once daily Cyanocobalamin (Vitamin B-12) 1,000 mcg Capsule Discontinued 1000 ug PO DAILY March 10, 2021 12:00am October 14, 2024 8:28am take 1 tablet by radhames th once daily cyanocobalamin (VITAMIN B-12) 1,000 mcg tab Take 1,000 mcg by mouth once daily. Active Comment on above: Take 1,000 mcg by mo [facility] once daily. vitamin b6 100 mg oral tablet (2 sources) Start: 10-14-2024 vitamin e 268 mg oral capsule (20 sources) Start: 03-10-2021 Vitamin E, dl, acetate, (VITAMIN E) 400 unit capsule Take by mouth. 03/10/2021 Active Start: 03-10-2021 Vitamin E, dl, acetate, (VITAMIN E) 400 unit capsule Take by mouth. 0 03/10/2021 Active Start: 03-10-2021 take 1 capsule by mo [facility] once daily Comment on above: Take by mouth. Zinc (20 sources) Start: 03-10-2021 take 50 mg by mouth once daily Zinc Active 50 MG PO DAILY March 10, 2021 3:00pm Start: 03-10-2021 take 1 capsule by mouth once d aily Start: 03-10-2021 take 1 capsule by mouth [...] to affected area. 03/10/2021 Active Start: 03-10-2021 Comment on above: Apply to affected ar ea. Completed/Discontinued Medications Medication Drug Class(es) Dates Sig (Normalized) Sig (Original) bisacodyl 10 mg rectal suppository (20 sources) Stimulant Laxative Start: 03-10-2021 End: 10-14-2024 Bisacodyl 10 mg Suppository Discontinued 10 mg RC DAILY as needed for Constipation March 10, 2021 12:00am October 14, 2024 8:39am dexamethasone 2 mg oral tablet (14 sources) Corticosteroid Start: 09-09-2022 End: 10-14-2024 take 3 tablets by mouth once daily Dexamethasone 2 mg tablet Discontinued 6 mg PO DAILY September 09, 2022 1:00am October 14, 2024 8:39am Start: 09-09-2022 take 6 mg by mouth once daily Dexamethasone Active 6 MG PO DAILY 16 06September 09, 2022 1:00am docusate sodium 50 mg / sennosides, nursing home 8.6 mg oral tablet (20 sources) Start: [...] 2021 12:00am montelukast 10 mg oral tablet (15 sources) Leukotriene Receptor Antagonist Start: 09-08-2022 End: [...] Chronic Chronic obstructive pulmonary disease and bronchiectasis (19 sources) Chronic obstructive lung disease; Translations: [Chronic obstructive pulmonary disease, unspecified] Chronic Comment on above: hx of/resident [place] s per correction note Coronary atherosclerosis and other heart disease (2 sources) Angina pectoris, unspecified; Translations: [Angina pectoris, unspecified] Onset: 10-07-2018 Chronic Deficiency and other anemia (2 sources) Iron deficiency anemia, unspecified; Translations: [Iron deficiency anemia, unspecified] Onset: 10-07-2018 Episodic Deficiency and other anemia (1 source) Iron deficiency anemia; Translations: [Iron deficiency anemia, unspecified] Episodic Deficiency and other anemia (1 source) Other iron deficiency anemias; Translations: [Other iron deficiency anemias] Onset: 07-25-2025 Episodic Disorders of lipid metabolism (5 sources) Hyperlipidemia, unspecified; Translations: [Mixed hyperlipidemia] Onset: 10-07-2018 Chronic Esophageal disorders (2 sources) Gastro-esophageal reflux disease without esophagitis; Translations: [Gastro-esophageal reflux disease without esophagitis] Onset: 10-07-2018 Chronic Essential hypertension (3 sources) Essential (primary) hypertension; Translations: [Essential (primary) hypertension] Onset: 10-07-2018 Chronic Genitourinary symptoms and ill-defined conditions (20 sources) Retention of urine; Translations: [Retention of urine, unspecified] Onset: 03-04-2018 03-04-2018 Episodic Mood disorders (19 sources) Depressive disorder; Translations: [Depression] Chronic Multiple sclerosis (20 sources) Multiple sclerosis; Translations: [Multiple sclerosis] Onset: 01-02-2014 01-02-2014 Chronic Comment on above: since 2011/brigitte gant Other aftercare (2 sources) 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; Translations: [[facility] (current) use of aspirin] Onset: 10-07-2018 Episodic Other aftercare (2 sources) 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 of non-steroidal anti-inflammatories (NSAID); Translations: [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 of non-steroidal non-inflam (NSAID)] Onset: 10-07-2018 Episodic Other circulatory disease (15 sources) H/O: atrial fibrillation; Translations: [Personal history [...] unspecified site] Episodic Other lower respiratory disease (15 sources) Hypoxia; Translations: [Hypoxemia] 09-18-2022 Episodic Other [...] Onset: 11-20-2002 01-14-2004 Chronic Unclassified (1 source) Multiple sclerosis; Translations: [Multiple sclerosis] 09-18-2022 Chronic Comment on above: since 2011/brigitte gant Unclassified (1 source) Unknown / UNK(Unknown) Onset: 03-04-2018 Urinary tract infections (20 sources) Acute cystitis without hematuria; Translations: [Urinary tract infectious disease] Onset: 10-07-2018 03-25-2021 Episodic Viral infection (20 sources) Disease caused by 2019-nCoV; Translations: [COVID-19] Episodic Viral infection (1 source) COVID-19; Translations: [COVID-19] Onset: 11-06-2024 Past or Other Problems Problem Classification Problem Date Documented Date Episodic/Chronic Other acquired deformities (17 sources) Somatic [...] and myositis, unspecified] Onset: 11-20-2002 01-14-2004 Episodic Unclassified (1 source) Retention of urine, unspecified Onset: 03-04-2018 Results Test Name Value Interpretation Reference Range Facility Lipid Profileon 07-03-2025 CHOL:HDL 4.25 Normal [facility] Comment on above: Order Comment: 204.1 Performed By: #### L 500.4100, [id number] #### [facility] [address] [place], [place], [phone] ([phone] Cholesterol [Mass/Vol] 142 mg/dL Normal <=200 [facility] Comment on above: Order Comment: 204.1 Result Comment: Chol esterol level, Desirable <200 mg/dL Borderline high cholesterol 200-239 mg/dL High cholesterol >=240 mg/dL Recommendations of the NCEP Adult Treatment Panel for the following risk-cutoff thresholds for the [place] population. Performed By: #### L 500.4100, [id number] #### [facility] [address] [place], [address] Cholesterol in HDL [Mass/Vol] 33 mg/dL Low [facility] Comment on above: Order Comment: 204.1 Result Comment: [place]idget[place] onal Cholesterol Education Program (NCEP) guidelines: <40 mg/dL: Low HDL-cholesterol (major risk factor for CHD) >= 60 mg/dL: High HDL-cholesterol (negative risk factor for CHD) HDL-cholesterol is affected by a number of factors, e.g. smoking, exercise, hormones, sex and age. Performed By: #### L 500.4100, [id number] #### [facility] [address] [place], [address] Cholesterol in LDL [Mass/Vol] 60 mg/dL Normal [facility] Comment on above: Order Comment: 204.1 Result Comment: Bord gnunyb=344-110 mg/dL Higher Qsjb=762 mg/dL or greater Friedwald Equation for LDL-C Performed By: #### L 500.4100, [id number] #### [facility] [address] [place], [address] Cholesterol in VLDL [Mass/Vol] 49 mg/dL High 5-40 [facility] Comment on above: Order Comment: 204.1 Performed By: #### L 500.4100, [id number] #### [facility] [address] [place], [address] Triglyceride [Mass/Vol] 243 mg/dL High [facility] Comment on above: Order Comment: 204.1 Result Comment: The drugs N-Acetylcysteine and Metamizole may falsely depress this assay. Normal range: <150 mg/dL Borderline High: 150-199 mg/dL High: 200-499 mg/dL Very High: >500 mg/dL Performed By: #### L 500.4100, [id number] #### [facility] [address] [place], [address] Vitamin B12on 07-03-2025 Cobalamin (Vitamin B12) [Mass/Vol] 1155 pg/mL High 180-914 [facility] Comment on above: Order Comment: 204.1 Performed By: #### L 500.4100, [id number] #### [facility] [address] [place], [address] Calculated very low density lipoprotein (VLDL) cholesterol measurementOrdered By: Twan Guerrero on 04-10-2025 Calculated very low density lipoprotein (VLDL) cholesterol measurement 46 mg/dL High 5-40 [facility] LDL calc ser/plasOrdered By: Twan Guerrero on 04-10-2025 Cholesterol in LDL [Mass/Vol] 50 mg/dL [facility] Comment on above: Bgvjgrrtyj=680-469 m g/dL & Higher Lyvs=446 mg/dL or greater Lipid Profileon 04-10-2025 CHOL:HDL 4.01 Normal [facility] Comment on above: Order Comment: 204.1 Performed By: #### L 500.4100 #### [facility] [address] [place], [address] Cholesterol [Mass/Vol] 128 mg/dL Normal <=200 [facility] Comment on above: Order Comment: 204.1 Result Comment: Chol esterol level, Desirable <200 mg/dL Borderline high cholesterol 200-239 mg/dL High cholesterol >=240 mg/dL Recommendations of the NCEP Adult Treatment Panel for the following risk-cutoff thresholds for the [place] population. Performed By: #### L [id number] #### [facility] [address] [place], [address] Cholesterol in HDL [Mass/Vol] 32 mg/dL Low [facility] Comment on above: Order Comment: 204.1 Result Comment: [place] onal Cholesterol Education Program (NCEP) guidelines: <40 mg/dL: Low HDL-cholesterol (major risk factor for CHD) >= 60 mg/dL: High HDL-cholesterol (negative risk factor for CHD) HDL-cholesterol is affected by a number of factors, e.g. smoking, exercise, hormones, sex and age. Performed By: #### L [id number] #### [facility] [address] [place], [address] Cholesterol in LDL [Mass/Vol] 50 mg/dL Normal [facility] Comment on above: Order Comment: 204.1 Result Comment: Bord vyeead=904-002 mg/dL Higher Hbbq=620 mg/dL or greater Performed By: #### L 500.4100 #### [facility] [address] [place], [place], [id number] Cholesterol in VLDL [Mass/Vol] 46 mg/dL High 5-40 [facility] Comment on above: Order Comment: 204.1 Performed By: #### L [id number] #### [facility] [address] [place], [place], [phone] ([phone]) Triglyceride [Mass/Vol] 229 mg/dL High [facility] Comment on above: Order Comment: 204.1 Result Comment: The drugs N-Acetylcysteine and Metamizole may falsely depress this assay. Normal range: <150 mg/dL Borderline High: 150-199 mg/dL High: 200-499 mg/dL Very High: >500 mg/dL Performed By: #### L [id number] #### [facility] [address] [place], [place], [id number] Screening total cholesterol/ high density lipoprotein (HDL) cholesterol ratioOrdered By: Twan Guerrero on 04-10-2025 Cholesterol.total/Sushma sterol in HDL [Mass ratio] 4.01 {ratio} [facility] Serum or plasma cholesterol in HDL measurement (mass/volume)Ordered By: Twan Guerrero on 04-10-2025 Cholesterol in HDL [Mass/Vol] 32 mg/dL Low >40 [facility] Comment on above: National Cholesterol Education Program (NCEP) guidelines:<40 mg/dL: Low HDL-cholesterol (major risk factor for CHD)>= 60 mg/dL: High HDL-cholesterol (negative risk factor for CHD)HDL-cholesterol is affected by a number of factors, e.g. smoking, exercise, hormones, sex and age. Serum or plasma cholesterol measurement (mass/volume)Ordered By: Twan Guerrero on 04-10-2025 Cholesterol [Mass/Vol] 128 mg/dL <201 [facility] Comment on above: Cholesterol level, D esirable <200 mg/dLBorderline high cholesterol 200-239 mg/dLHigh cholesterol >=240 mg/dLRecommendations of the NCEP Adult Treatment Panel for the following risk-cutoff thresholds for the [place] population. Triglycerides measurementOrd ered By: Twan Guerrero on 04-10-2025 Triglyceride [Mass/Vol] 229 mg/dL High <199 [facility] Comment on above: The drugs N-Acetylcy steine and Metamizole may falsely depress this assay. Normal range: <150 mg/dLBorderline High: 150-199 mg/dLHigh: 200-499 mg/dLVery High: >500 mg/dL Anion gap in Serum or Plasma Ordered By: Twan Guerrero on 02-26-2025 Anion gap [Moles/Vol] 11 mmol/L 5-15 [facility] BUN/creatinine ratioOrdered By: Twan Guerrero on 02-26-2025 Urea nitrogen/Creatinine [Mass ratio] 24.2 mg/mg High 10-20 [facility] Bilirubin, totalOrdered By: Twan Guerrero on 02-26-2025 Bilirubin [Mass/Vol] 0.22 mg/dL 0.00-1.30 [facility] CBC-Complete Blood Cnt No Di ffon 02-26-2025 Erythrocyte distribution width (RBC) [Ratio] 14.3 % Normal 11.6-14.6 [facility] Comment on above: Order Comment: 204.1 Performed By: #### L 100.0500, L500.4050 ####[facility] [address] [place], [address] Hematocrit (Bld) [Volume fraction] 34.7 % Low 37-47 [facility] Comment on above: Order Comment: 204.1 Performed By: #### L 100.0500, L500.4050 ####[facility] [address] [place], [address] Hemoglobin (Bld) [Mass/Vol] 11.0 g/dL Low 12.0-15.0 [facility] Comment on above: Order Comment: 204.1 Performed By: #### L 100.0500, L500.4050 ####[facility] [address] [place], [address] MCH (RBC) [Entitic mass] 29.3 pg Normal 27.0-32.0 [facility] Comment on above: Order Comment: 204.1 Performed By: #### L 100.0500, L500.4050 ####[facility] [address] [place], [address] MCHC (RBC) [Mass/Vol] 31.7 g/dL Low 32-36 [facility] Comment on above: Order Comment: 204.1 Performed By: #### L 100.0500, L500.4050 ####[facility] [address] [place], [address] MCV (RBC) [Entitic vol] 92.3 fL Normal 81-99 [facility] Comment on above: Order Comment: 204.1 Performed By: #### L 100.0500, L500.4050 ####[facility] [address] [place], [address] Platelet mean volume (Bld) [Entitic vol] 10.6 fL Normal 6.2-12.0 [facility] Comment on above: Order Comment: 204.1 Performed By: #### L 100.0500, L500.4050 ####[facility] [address] [place], [address] Platelets (Bld) [#/Vol] 231 10*3/uL Normal 150-450 [facility] Comment on above: Order Comment: 204.1 Performed By: #### L 100.0500, L500.4050 ####[facility] [address] [place], [address] RBC (Bld) [#/Vol] 3.76 10*6/uL Low 4.2-5.4 [facility] Comment on above: Order Comment: 204.1 Performed By: #### L 100.0500, L500.4050 ####[facility] [address] [place], [address] RDW SD 48.4 fl High 35.1-43.9 [facility] Comment on above: Order Comment: 204.1 Performed By: #### L 100.0500, L500.4050 ####[facility] [address] [place], [address] WBC (Bld) [#/Vol] 6.5 10*3/uL Normal 4.4-11.0 [facility] Comment on above: Order Comment: 204.1 Performed By: #### L 100.0500, L500.4050 ####[facility] [address] [place], [address] Carbon dioxide, total [Moles /volume] in Central venous bloodOrdered By: Twan Guerrero on 02-26-2025 CO2 [Moles/Vol] 23.0 mmol/L 21.0-32.0 [facility] Chloride assayOrdered By: Ervin on 02-26-2025 Chloride [Moles/Vol] 111 mmol/L High 98-108 [facility] Comprehensive Metabolic Prof ilon 02-26-2025 Albumin [Mass/Vol] 3.6 g/dL Normal 3.4-4.8 [facility] Comment on above: Order Comment: 204.1 Performed By: #### L 100.0500, L500.4050 ####[facility] [address] [place], [address] Albumin/Globulin [Mass ratio] 1.6 {ratio} Normal 0.9-2.4 [facility] Comment on above: Order Comment: 204.1 Performed By: #### L 100.0500, L500.4050 ####[facility] [address] [place], [address] ALK PHOS 81 U/L Normal 35-104 [facility] Comment on above: Order Comment: 204.1 Performed By: #### L 100.0500, L500.4050 ####[facility] [address] [place], [address] ALT [Catalytic activity/Vol] 29 U/L Normal <=34 [facility] Comment on above: Order Comment: 204.1 Performed By: #### L 100.0500, L500.4050 ####[facility] [address] [place], [address] AST [Catalytic activity/Vol] 27 U/L Normal <=31 [facility] Comment on above: Order Comment: 204.1 Performed By: #### L 100.0500, L500.4050 ####[facility] [address] [place], [address] Bilirubin [Mass/Vol] 0.22 mg/dL Normal 0.00-1.30 [facility] Comment on above: Order Comment: 204.1 Performed By: #### L 100.0500, L500.4050 ####[facility] [address] [place], [address] BUN/CRE 24.2 RATIO High 10-20 [facility] Comment on above: Order Comment: 204.1 Performed By: #### L 100.0500, L500.4050 ####[facility] [address] [place], [address] Calcium [Mass/Vol] 9.1 mg/dL Normal 7.6-11.0 [facility] Comment on above: Order Comment: 204.1 Performed By: #### L 100.0500, L500.4050 ####[facility] [address] [place], [address] Chloride [Moles/Vol] 111 mmol/L High 98-108 [facility] Comment on above: Order Comment: 204.1 Performed By: #### L 100.0500, L500.4050 ####[facility] [address] [place], [address] CO2 [Moles/Vol] 23.0 mmol/L Normal 21.0-32.0 [facility] Comment on above: Order Comment: 204.1 Performed By: #### L 100.0500, L500.4050 ####[facility] [address] [place], [address] Creatinine [Mass/Vol] 0.60 mg/dL Low 0.70-1.20 [facility] Comment on above: Order Comment: 204.1 Performed By: #### L 100.0500, L500.4050 ####[facility] [address] [place], [address] GAP 11 Normal 5-15 [facility] Comment on above: Order Comment: 204.1 Performed By: #### L 100.0500, L500.4050 ####[facility] [address] [place], [address] GFR/1.73 sq M.predicted among non-blacks MDRD (S/P/Bld) [Vol rate/Area] 96 mL/min/{1.73_m2} Normal >60 [facility] Comment on above: Order Comment: 204.1 Result Comment: mL/m in/1.73m2 CKD-EPI Creatinine Equation (2020) Performed By: #### L 100.0500, L500.4050 ####[facility] [address] [place], [address] Globulin (S) [Mass/Vol] 2.3 g/dL Normal 2.2-4.2 [facility] Comment on above: Order Comment: 204.1 Performed By: #### L 100.0500, L500.4050 ####[facility] [address] [place], [address] Glucose [Mass/Vol] 118 mg/dL High 70-99 [facility] Comment on above: Order Comment: 204.1 Performed By: #### L 100.0500, L500.4050 ####[facility] [address] [place], [address] Potassium [Moles/Vol] 4.1 mmol/L Normal 3.3-5.1 [facility] Comment on above: Order Comment: 204.1 Performed By: #### L 100.0500, L500.4050 ####[facility] [address] [place], [address] Sodium [Moles/Vol] 145 mmol/L Normal 133-145 [facility] Comment on above: Order Comment: 204.1 Performed By: #### L 100.0500, L500.4050 ####[facility] [address] [place], [address] T PROT 5.9 g/dL Normal 5.9-8.4 [facility] Comment on above: Order Comment: 204.1 Performed By: #### L 100.0500, L500.4050 ####[facility] [address] [place], [address] Urea nitrogen [Mass/Vol] 15 mg/dL Normal 4-19 [facility] Comment on above: Order Comment: 204.1 Performed By: #### L 100.0500, L500.4050 ####[facility] [address] [place], [address] Erythrocyte distribution wid th ratioOrdered By: Twan Guerrero on 02-26-2025 Erythrocyte distribution width (RBC) [Ratio] 14.3 % 11.6-14.6 [facility] Erythrocyte distribution wid th standard deviationOrdered By: Twan Guerrero on 02-26-2025 Erythrocyte distribution width (RBC) [Ratio] 48.4 fl High 35.1-43.9 [facility] Glomerular filtration rate ( GFR) estimation/1.73 sq m using serum, plasma, or whole bOrdered By: Twan Guerrero on 02-26-2025 GFR/1.73 sq M.predicted among non-blacks MDRD (S/P/Bld) [Vol rate/Area] 96 mL/min/{1.73_m2} >60 [facility] Comment on above: mL/min/1.73m2 CKD-EP I Creatinine Equation (2020) Hematocrit Auto (Bld) [Volum e fraction]Ordered By: Twan Guerrero on 02-26-2025 Hematocrit (Bld) [Volume fraction] 34.7 % Low 37-47 [facility] Hemoglobin measurementOrdere d By: Twan Guerrero on 02-26-2025 Hemoglobin (Bld) [Mass/Vol] 11.0 g/dL Low 12.0-15.0 [facility] Laboratory - Chemistry and C hemistry - challengeOrdered By: Twan Guerrero on 02-26-2025 AST [Catalytic activity/Vol] 27 U/L <32 [facility] MCV (mean corpuscular volume ) determinationOrdered By: Twan Guerrero on 02-26-2025 MCV (RBC) [Entitic vol] 92.3 fL 81-99 [facility] Mean corpuscular hemoglobin (MCH) determinationOrdered By: Twan Guerrero on 02-26-2025 MCH (RBC) [Entitic mass] 29.3 pg 27.0-32.0 [facility] Mean corpuscular hemoglobin concentration (MCHC) determinationOrdered By: Twan Guerrero on 02-26-2025 MCHC (RBC) [Mass/Vol] 31.7 g/dL Low 32-36 [facility] Mean platelet volume determi nationOrdered By: Twan Guerrero on 02-26-2025 Platelet mean volume (Bld) [Entitic vol] 10.6 fL 6.2-12.0 [facility] Platelet countOrdered By: Ervin on 02-26-2025 Platelets (Bld) [#/Vol] 231 10*3/uL 150-450 [facility] Potassium measurement (mass/ volume)Ordered By: Twan Guerrero on 02-26-2025 Potassium (Unsp spec) [Mass/Vol] 4.1 mmol/L 3.3-5.1 [facility] RBC Auto (Bld) [#/Vol]Ordere d By: Twan Guerrero on 02-26-2025 RBC (Bld) [#/Vol] 3.76 10*6/uL Low 4.2-5.4 [facility] Serum creatinine measurement (mass/volume)Ordered By: Twan Guerrero on 02-26-2025 Creatinine [Mass/Vol] 0.60 mg/dL Low 0.70-1.20 [facility] Serum globulin measurementOr dered By: Twan Guerrero on 02-26-2025 Globulin (S) [Mass/Vol] 2.3 g/dL 2.2-4.2 [facility] Serum glucose measurement (m ass/volume)Ordered By: Twan Guerrero on 02-26-2025 Glucose [Mass/Vol] 118 mg/dL High 70-99 [facility] Serum or plasma alanine castrejon otransferase (ALT) measurementOrdered By: Twan Guerrero on 02-26-2025 ALT [Catalytic activity/Vol] 29 U/L <35 [facility] Serum or plasma albumin nohelia urement (mass/volume)Ordered By: Twan Guerrero on 02-26-2025 Albumin [Mass/Vol] 3.6 g/dL 3.4-4.8 [facility] Serum or plasma albumin/glob ulin mass ratioOrdered By: Twan Guerrero on 02-26-2025 Albumin/Globulin [Mass ratio] 1.6 {ratio} 0.9-2.4 [facility] Serum or plasma alkaline rakan sphatase measurementOrdered By: Twan Guerrero on 02-26-2025 ALP [Catalytic activity/Vol] 81 U/L 35-104 [facility] Serum or plasma calcium nohelia urement (mass/volume)Ordered By: Twan Guerrero on 02-26-2025 Calcium [Mass/Vol] 9.1 mg/dL 7.6-11.0 [facility] Serum or plasma urea nitroge n measurement (mass/volume)Ordered By: Twan Guerrero on 02-26-2025 Urea nitrogen [Mass/Vol] 15 mg/dL 4-19 [facility] Sodium levelOrdered By: Twan Guerrero on 02-26-2025 Sodium [Moles/Vol] 145 mmol/L 133-145 [facility] Total proteinOrdered By: Gisel Guerrero on 02-26-2025 Protein [Mass/Vol] 5.9 g/dL 5.9-8.4 [facility] White blood cell (WBC) count Ordered By: Twan Guerrero on 02-26-2025 WBC (Bld) [#/Vol] 6.5 10*3/uL 4.4-11.0 [facility] CNOVon 02-05-2025 CNOV Office Visit (AKURFL ) -- SHIN ROJO ([id number]) 1955 [facility] Date Time Provider Department 02/05/25 8:40 AM POSTLETTINY ESTRADA During your visit today, we recorded the following information about you: Respiration Weight Height 16/minute 72.6 kg 1.6 m 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 SPT is flushed daily. [...] B-12) 1, (more content not included)... Normal [facility] Absolute lymphocyte countOrd ered By: Twan Guerrero on 01-16-2025 Lymphocytes Auto (Unsp spec) [#/Vol] 2.76 10*3/uL 0.83-4.51 [facility] Absolute neutrophil countOrd ered By: Twan Guerrero on 01-16-2025 Neutrophils (Bld) [#/Vol] 3.7 10*3/uL 2.0-7.7 [facility] Automated lymphocyte count a s percentage of total leukocytesOrdered By: Twan Guerrero on 01-16-2025 Lymphocytes/100 WBC Auto (Unsp spec) 37.0 % 19-41 [facility] Basophil percentageOrdered B y: Twan Deperro on 01-16-2025 Basophils/100 WBC (Bld) 0.7 % 0-1 [facility] CBC W/Diff, Automatedon - Absolute Lymph 2.76 X10 3/uL Normal 0.83-4.51 [facility] Comment on above: Order Comment: 204.1 Performed By: #### L 100.0100, L500.4100 ####[facility] [address] [place], [address] Absolute Neut 3.7 X10 3/uL Normal 2.0-7.7 [facility] Comment on above: Order Comment: 204.1 Performed By: #### L 100.0100, L500.4100 ####[facility] [address] [place], [address] Basophils/100 WBC (Bld) 0.7 % Normal 0-1 [facility] Comment on above: Order Comment: 204.1 Performed By: #### L 100.0100, L500.4100 ####[facility] [address] [place], [address] Eosinophils/100 WBC (Bld) 2.0 % Normal 0-5 [facility] Comment on above: Order Comment: 204.1 Performed By: #### L 100.0100, L500.4100 ####[facility] [address] [place], [address] Erythrocyte distribution width (RBC) [Ratio] 14.9 % High 11.6-14.6 [facility] Comment on above: Order Comment: 204.1 Performed By: #### L 100.0100, L500.4100 ####[facility] [address] [place], [address] Hematocrit (Bld) [Volume fraction] 36.4 % Low 37-47 [facility] Comment on above: Order Comment: 204.1 Performed By: #### L 100.0100, L500.4100 ####[facility] [address] [place], [address] Hemoglobin (Bld) [Mass/Vol] 11.4 g/dL Low 12.0-15.0 [facility] Comment on above: Order Comment: 204.1 Performed By: #### L 100.0100, L500.4100 ####[facility] [address] [place], [address] IG% 0.400 Normal 0.0-0.9 [facility] Comment on above: Order Comment: 204.1 Result Comment: IG% - Immature Granulocytes (promyelocytes, myelocytes and metamyelocytes) > 1% indicates that a LEFT SHIFT is Present. Performed By: #### L 100.0100, L500.4100 ####[facility] [address] [place], [address] Lymphocytes/100 WBC (Bld) 37.0 % Normal 19-41 [facility] Comment on above: Order Comment: 204.1 Performed By: #### L 100.0100, L500.4100 ####[facility] [address] [place], [address] MCH (RBC) [Entitic mass] 29.2 pg Normal 27.0-32.0 [facility] Comment on above: Order Comment: 204.1 Performed By: #### L 100.0100, L500.4100 ####[facility] [address] [place], [address] MCHC (RBC) [Mass/Vol] 31.3 g/dL Low 32-36 [facility] Comment on above: Order Comment: 204.1 Performed By: #### L 100.0100, L500.4100 ####[facility] [address] [place], [address] MCV (RBC) [Entitic vol] 93.1 fL Normal 81-99 [facility] Comment on above: Order Comment: 204.1 Performed By: #### L 100.0100, L500.4100 ####[facility] [address] [place], [address] Monocytes/100 WBC (Bld) 9.9 % Normal 0-10 [facility] Comment on above: Order Comment: 204.1 Performed By: #### L 100.0100, L500.4100 ####[facility] [address] [place], [address] Neutrophils/100 WBC (Bld) 50.0 % Normal 47-70 [facility] Comment on above: Order Comment: 204.1 Performed By: #### L 100.0100, L500.4100 ####[facility] [address] [place], [address] Nucleated RBC (Bld) [#/Vol] 0 10*3/uL Normal 0-5 [facility] Comment on above: Order Comment: 204.1 Performed By: #### L 100.0100, L500.4100 ####[facility] [address] [place], [address] Platelet mean volume (Bld) [Entitic vol] 10.8 fL Normal 6.2-12.0 [facility] Comment on above: Order Comment: 204.1 Performed By: #### L 100.0100, L500.4100 ####[facility] [address] [place], [address] Platelets (Bld) [#/Vol] 247 10*3/uL Normal 150-450 [facility] Comment on above: Order Comment: 204.1 Performed By: #### L 100.0100, L500.4100 ####[facility] [address] [place], [address] RBC (Bld) [#/Vol] 3.91 10*6/uL Low 4.2-5.4 [facility] Comment on above: Order Comment: 204.1 Performed By: #### L 100.0100, L500.4100 ####[facility] [address] [place], [address] RDW SD 50.8 fl High 35.1-43.9 [facility] Comment on above: Order Comment: 204.1 Performed By: #### L 100.0100, L500.4100 ####[facility] [address] [place], [address] WBC (Bld) [#/Vol] 7.5 10*3/uL Normal 4.4-11.0 [facility] Comment on above: Order Comment: 204.1 Performed By: #### L 100.0100, L500.4100 ####[facility] [address] [place], [address] Calculated very low density lipoprotein (VLDL) cholesterol measurementOrdered By: Twan Guerrero on 01-16-2025 Calculated very low density lipoprotein (VLDL) cholesterol measurement 41 mg/dL High 5-40 [facility] Eosinophil percentageOrdered By: Twan Guerrero on 01-16-2025 Eosinophils/100 WBC (Bld) 2.0 % 0-5 [facility] Erythrocyte distribution wid th ratioOrdered By: Twan Guerrero on 01-16-2025 Erythrocyte distribution width (RBC) [Ratio] 14.9 % High 11.6-14.6 [facility] Erythrocyte distribution wid th standard deviationOrdered By: Twan Guerrero on 01-16-2025 Erythrocyte distribution width (RBC) [Ratio] 50.8 fl High 35.1-43.9 [facility] Hematocrit Auto (Bld) [Volum e fraction]Ordered By: Twan Guerrero on 01-16-2025 Hematocrit (Bld) [Volume fraction] 36.4 % Low 37-47 [facility] Hemoglobin measurementOrdere d By: Twan Guerrero on 01-16-2025 Hemoglobin (Bld) [Mass/Vol] 11.4 g/dL Low 12.0-15.0 [facility] Immature granulocytes/100 WB C Auto (Bld)Ordered By: Twan Guerrero on 01-16-2025 Immature granulocytes/100 WBC (Bld) 0.400 % 0.0-0.9 [facility] Comment on above: IG% - Immature Granu locytes (promyelocytes, myelocytes and metamyelocytes) > 1% indicates that a LEFT SHIFT is Present. LDL calc ser/plasOrdered By: Twan Guerrero on 01-16-2025 Cholesterol in LDL [Mass/Vol] 56 mg/dL [facility] Comment on above: Spqzkpronh=503-050 m g/dL & Higher Evnf=310 mg/dL or greater Lipid Profileon 01-16-2025 CHOL:HDL 4.13 Normal [facility] Comment on above: Order Comment: 204.1 Performed By: #### L 100.0100, L500.4100 ####[facility] [address] [place], [place], [phone] Cholesterol [Mass/Vol] 128 mg/dL Normal <=200 [facility] Comment on above: Order Comment: 204.1 Result Comment: Chol esterol level, Desirable <200 mg/dL Borderline high cholesterol 200-239 mg/dL High cholesterol >=240 mg/dL Recommendations of the NCEP Adult Treatment Panel for the following risk-cutoff thresholds for the [place] population. Performed By: #### L 100.0100, L500.4100 ####[facility] [address] [place], [place], [phone](253) Cholesterol in HDL [Mass/Vol] 31 mg/dL Low [facility] Comment on above: Order Comment: 204.1 Result Comment: Bridgette onal Cholesterol Education Program (NCEP) guidelines: <40 mg/dL: Low HDL-cholesterol (major risk factor for CHD) >= 60 mg/dL: High HDL-cholesterol (negative risk factor for CHD) HDL-cholesterol is affected by a number of factors, e.g. smoking, exercise, hormones, sex and age. Performed By: #### L 100.0100, L500.4100 ####[facility] [address] [place], [address] Cholesterol in LDL [Mass/Vol] 56 mg/dL Normal [facility] Comment on above: Order Comment: 204.1 Result Comment: Bord vajhdh=318-973 mg/dL Higher Ktfa=906 mg/dL or greater Performed By: #### L 100.0100, L500.4100 ####[facility] [address] [place], [address] Cholesterol in VLDL [Mass/Vol] 41 mg/dL High 5-40 [facility] Comment on above: Order Comment: 204.1 Performed By: #### L 100.0100, L500.4100 ####[facility] [address] [place], [address] Triglyceride [Mass/Vol] 204 mg/dL High [facility] Comment on above: Order Comment: 204.1 Result Comment: The drugs N-Acetylcysteine and Metamizole may falsely depress this assay. Normal range: <150 mg/dL Borderline High: 150-199 mg/dL High: 200-499 mg/dL Very High: >500 mg/dL Performed By: #### L 100.0100, L500.4100 ####[facility] [address] [place], [address] MCV (mean corpuscular volume ) determinationOrdered By: Twan Guerrero on 01-16-2025 MCV (RBC) [Entitic vol] 93.1 fL 81-99 [facility] Mean corpuscular hemoglobin (MCH) determinationOrdered By: Twan Guerrero on 01-16-2025 MCH (RBC) [Entitic mass] 29.2 pg 27.0-32.0 [facility] Mean corpuscular hemoglobin concentration (MCHC) determinationOrdered By: Twan Guerrero on 01-16-2025 MCHC (RBC) [Mass/Vol] 31.3 g/dL Low 32-36 [facility] Mean platelet volume determi nationOrdered By: Twan Guerrero on 01-16-2025 Platelet mean volume (Bld) [Entitic vol] 10.8 fL 6.2-12.0 [facility] Monocyte percentageOrdered B y: Twan Guerrero on 01-16-2025 Monocytes/100 WBC (Bld) 9.9 % 0-10 [facility] Neutrophil percentageOrdered By: Twan Guerrero on 01-16-2025 Neutrophils/100 WBC (Bld) 50.0 % 47-70 [facility] Nucleated red blood cell per centageOrdered By: Twan Guerrero on 01-16-2025 Nucleated RBC/100 WBC (Bld) [Ratio] 0 % 0-5 [facility] Platelet countOrdered By: Ervin on 01-16-2025 Platelets (Bld) [#/Vol] 247 10*3/uL 150-450 [facility] RBC Auto (Bld) [#/Vol]Ordere d By: Twan Guerrero on 01-16-2025 RBC (Bld) [#/Vol] 3.91 10*6/uL Low 4.2-5.4 [facility] Screening total cholesterol/ high density lipoprotein (HDL) cholesterol ratioOrdered By: Twan Guerrero on 01-16-2025 Cholesterol.total/Sushma sterol in HDL [Mass ratio] 4.13 {ratio} [facility] Serum or plasma cholesterol in HDL measurement (mass/volume)Ordered By: Twan Guerrero on 01-16-2025 Cholesterol in HDL [Mass/Vol] 31 mg/dL Low >40 [facility] Comment on above: National Cholesterol Education Program (NCEP) guidelines:<40 mg/dL: Low HDL-cholesterol (major risk factor for CHD)>= 60 mg/dL: High HDL-cholesterol (negative risk factor for CHD)HDL-cholesterol is affected by a number of factors, e.g. smoking, exercise, hormones, sex and age. Serum or plasma cholesterol measurement (mass/volume)Ordered By: Twan Guerrero on 01-16-2025 Cholesterol [Mass/Vol] 128 mg/dL <201 [facility] Comment on above: Cholesterol level, D esirable <200 mg/dLBorderline high cholesterol 200-239 mg/dLHigh cholesterol >=240 mg/dLRecommendations of the NCEP Adult Treatment Panel for the following risk-cutoff thresholds for the [place] population. Triglycerides measurementOrd ered By: Twan Guerrero on 01-16-2025 Triglyceride [Mass/Vol] 204 mg/dL High <199 [facility] Comment on above: The drugs N-Acetylcy steine and Metamizole may falsely depress this assay. Normal range: <150 mg/dLBorderline High: 150-199 mg/dLHigh: 200-499 mg/dLVery High: >500 mg/dL White blood cell (WBC) count Ordered By: Twan Guerrero on 01-16-2025 WBC (Bld) [#/Vol] 7.5 10*3/uL 4.4-11.0 [facility] Absolute lymphocyte countOrd ered By: Twan Guerrero on 10-24-2024 Lymphocytes Auto (Unsp spec) [#/Vol] 2.74 10*3/uL 0.83-4.51 [facility] Absolute neutrophil countOrd ered By: Twan Guerrero on 10-24-2024 Neutrophils (Bld) [#/Vol] 4.3 10*3/uL 2.0-7.7 [facility] Automated lymphocyte count a s percentage of total leukocytesOrdered By: Twan Guerrero on 10-24-2024 Lymphocytes/100 WBC Auto (Unsp spec) 34.2 % 19-41 [facility] Basophil percentageOrdered B y: Twan Guerrero on 10-24-2024 Basophils/100 WBC (Bld) 0.4 % 0-1 [facility] CBC W/Diff, Automatedon Absolute Lymph 2.74 X10 3/uL Normal 0.83-4.51 [facility] Comment on above: Order Comment: 204.1 Performed By: #### L 500.4100, L100.0100 #### [facility] [address] [place], [place], [id number] Absolute Neut 4.3 X10 3/uL Normal 2.0-7.7 [facility] Comment on above: Order Comment: 204.1 Performed By: #### L 500.4100, L100.0100 #### [facility] [address] [place], [address] Basophils/100 WBC (Bld) 0.4 % Normal 0-1 [facility] Comment on above: Order Comment: 204.1 Performed By: #### L 500.4100, L100.0100 #### [facility] [address] [place], [address] Eosinophils/100 WBC (Bld) 2.0 % Normal 0-5 [facility] Comment on above: Order Comment: 204.1 Performed By: #### L 500.4100, L100.0100 #### [facility] [address] [place], [address] Erythrocyte distribution width (RBC) [Ratio] 14.6 % Normal 11.6-14.6 [facility] Comment on above: Order Comment: 204.1 Performed By: #### L 500.4100, L100.0100 #### [facility] [address] [place], [address] Hematocrit (Bld) [Volume fraction] 34.1 % Low 37-47 [facility] Comment on above: Order Comment: 204.1 Performed By: #### L 500.4100, L100.0100 #### [facility] [address] [place], [address] Hemoglobin (Bld) [Mass/Vol] 10.7 g/dL Low 12.0-15.0 [facility] Comment on above: Order Comment: 204.1 Performed By: #### L 500.4100, L100.0100 #### [facility] [address] [place], [address] IG% 0.900 Normal 0.0-0.9 [facility] Comment on above: Order Comment: 204.1 Result Comment: IG% - Immature Granulocytes (promyelocytes, myelocytes and metamyelocytes) > 1% indicates that a LEFT SHIFT is Present. Performed By: #### L 500.4100, L100.0100 #### [facility] [address] [place], [address] Lymphocytes/100 WBC (Bld) 34.2 % Normal 19-41 [facility] Comment on above: Order Comment: 204.1 Performed By: #### L 500.4100, L100.0100 #### [facility] [address] [place], [address] MCH (RBC) [Entitic mass] 29.0 pg Normal 27.0-32.0 [facility] Comment on above: Order Comment: 204.1 Performed By: #### L 500.4100, L100.0100 #### [facility] [address] [place], [address] MCHC (RBC) [Mass/Vol] 31.4 g/dL Low 32-36 [facility] Comment on above: Order Comment: 204.1 Performed By: #### L 500.4100, L100.0100 #### [facility] [address] [place], [address] MCV (RBC) [Entitic vol] 92.4 fL Normal 81-99 [facility] Comment on above: Order Comment: 204.1 Performed By: #### L 500.4100, L100.0100 #### [facility] [address] [place], [address] Monocytes/100 WBC (Bld) 9.1 % Normal 0-10 [facility] Comment on above: Order Comment: 204.1 Performed By: #### L 500.4100, L100.0100 #### [facility] [address] [place], [address] Neutrophils/100 WBC (Bld) 53.4 % Normal 47-70 [facility] Comment on above: Order Comment: 204.1 Performed By: #### L 500.4100, L100.0100 #### [facility] [address] [place], [address] Nucleated RBC (Bld) [#/Vol] 0 10*3/uL Normal 0-5 [facility] Comment on above: Order Comment: 204.1 Performed By: #### L 500.4100, L100.0100 #### [facility] [address] [place], [address] Platelet mean volume (Bld) [Entitic vol] 10.5 fL Normal 6.2-12.0 [facility] Comment on above: Order Comment: 204.1 Performed By: #### L 500.4100, L100.0100 #### [facility] [address] [place], [address] Platelets (Bld) [#/Vol] 213 10*3/uL Normal 150-450 [facility] Comment on above: Order Comment: 204.1 Performed By: #### L 500.4100, L100.0100 #### [facility] [address] [place], [address] RBC (Bld) [#/Vol] 3.69 10*6/uL Low 4.2-5.4 [facility] Comment on above: Order Comment: 204.1 Performed By: #### L 500.4100, L100.0100 #### [facility] [address] [place], [address] RDW SD 49.4 fl High 35.1-43.9 [facility] Comment on above: Order Comment: 204.1 Performed By: #### L 500.4100, L100.0100 #### [facility] [address] [place], [address] WBC (Bld) [#/Vol] 8.0 10*3/uL Normal 4.4-11.0 [facility] Comment on above: Order Comment: 204.1 Performed By: #### L 500.4100, L100.0100 #### [facility] [address] [place], [address] Eosinophil percentageOrdered By: Twan Guerrero on 10-24-2024 Eosinophils/100 WBC (Bld) 2.0 % 0-5 [facility] Erythrocyte distribution wid th ratioOrdered By: Twan Guerrero on 10-24-2024 Erythrocyte distribution width (RBC) [Ratio] 14.6 % 11.6-14.6 [facility] Erythrocyte distribution wid th standard deviationOrdered By: Twan Guerrero on 10-24-2024 Erythrocyte distribution width (RBC) [Ratio] 49.4 fl High 35.1-43.9 [facility] Hematocrit Auto (Bld) [Volum e fraction]Ordered By: Twan Guerrero on 10-24-2024 Hematocrit (Bld) [Volume fraction] 34.1 % Low 37-47 [facility] Hemoglobin measurementOrdere d By: Twan Guerrero on 10-24-2024 Hemoglobin (Bld) [Mass/Vol] 10.7 g/dL Low 12.0-15.0 [facility] High density lipoprotein (HD L) measurementOrdered By: Twan Guerrero on 10-24-2024 Cholesterol in HDL [Mass/Vol] 32 mg/dL Low >40 [facility] Comment on above: The drugs N-Acetylcy steine and Metamizole may falsely depress this assay. Reference Range HDL <40 mg/dL Low HDL Cholesterol HDL >or= 60 mg/dL High HDL Cholesterol Immature granulocytes/100 WB C Auto (Bld)Ordered By: Twan Guerrero on 10-24-2024 Immature granulocytes/100 WBC (Bld) 0.900 % 0.0-0.9 [facility] Comment on above: IG% - Immature Granu locytes (promyelocytes, myelocytes and metamyelocytes) > 1% indicates that a LEFT SHIFT is Present. Lipid Profileon 10-24-2024 Cholesterol [Mass/Vol] 121 mg/dL Normal 200 [facility] Comment on above: Order Comment: 204.1 Result Comment: <200 mg/dL Desirable 200-240 mg/dL Borderline >240 mg/dL High Risk Performed By: #### L 500.4100, L100.0100 #### [facility] [address] [place], [address] Cholesterol in HDL [Mass/Vol] 32 mg/dL Low [facility] Comment on above: Order Comment: 204.1 Result Comment: The drugs N-Acetylcysteine and Metamizole may falsely depress this assay. Reference Range HDL <40 mg/dL Low HDL Cholesterol HDL >or= 60 mg/dL High HDL Cholesterol Performed By: #### L 500.4100, L100.0100 #### [facility] [address] [place], [address] Cholesterol in LDL [Mass/Vol] 44 mg/dL Normal 0-130 [facility] Comment on above: Order Comment: 204.1 Performed By: #### L 500.4100, L100.0100 #### [facility] [address] [place], [address] Cholesterol in VLDL [Mass/Vol] 45 mg/dL High 5-40 [facility] Comment on above: Order Comment: 204.1 Performed By: #### L 500.4100, L100.0100 #### [facility] [address] [place], [address] Triglyceride [Mass/Vol] 226 mg/dL High [facility] Comment on above: Order Comment: 204.1 Result Comment: The drugs N-Acetylcysteine and Metamizole may falsely depress this assay. Serum Triglycerides Reference Interval Normal <150 mg/dL Borderline high 150 - 199 mg/dL High 200 - 499 mg/dL Very High > or = 500 mg/dL Performed By: #### L 500.4100, L100.0100 #### [facility] [address] [place], [address] Low density lipoprotein (LDL ) cholesterol measurementOrdered By: Twan Guerrero on 10-24-2024 Cholesterol in LDL [Mass/Vol] 44 mg/dL 0-130 [facility] MCV (mean corpuscular volume ) determinationOrdered By: Twan Guerrero on 10-24-2024 MCV (RBC) [Entitic vol] 92.4 fL 81-99 [facility] Mean corpuscular hemoglobin (MCH) determinationOrdered By: Twan Guerrero on 10-24-2024 MCH (RBC) [Entitic mass] 29.0 pg 27.0-32.0 [facility] Mean corpuscular hemoglobin concentration (MCHC) determinationOrdered By: Twan Guerrero on 10-24-2024 MCHC (RBC) [Mass/Vol] 31.4 g/dL Low 32-36 [facility] Mean platelet volume determi nationOrdered By: Twan Guerrero on 10-24-2024 Platelet mean volume (Bld) [Entitic vol] 10.5 fL 6.2-12.0 [facility] Monocyte percentageOrdered B y: Twan Guerrero on 10-24-2024 Monocytes/100 WBC (Bld) 9.1 % 0-10 [facility] Neutrophil percentageOrdered By: Twan Guerrero on 10-24-2024 Neutrophils/100 WBC (Bld) 53.4 % 47-70 [facility] Nucleated red blood cell per centageOrdered By: Twan Guerrero on 10-24-2024 Nucleated RBC/100 WBC (Bld) [Ratio] 0 % 0-5 [facility] Platelet countOrdered By: Ervin on 10-24-2024 Platelets (Bld) [#/Vol] 213 10*3/uL 150-450 [facility] RBC Auto (Bld) [#/Vol]Ordere d By: wTan Guerrero on 10-24-2024 RBC (Bld) [#/Vol] 3.69 10*6/uL Low 4.2-5.4 [facility] Serum or plasma cholesterol measurement (mass/volume)Ordered By: Twna Guerrero on 10-24-2024 Cholesterol [Mass/Vol] 121 mg/dL <200 [facility] Comment on above: <200 mg/dL Desirable 200-240 mg/dL Borderline >240 mg/dL High Risk Triglycerides measurementOrd ered By: Twan Guerrero on 10-24-2024 Triglyceride [Mass/Vol] 226 mg/dL High <199 [facility] Comment on above: The drugs N-Acetylcy steine and Metamizole may falsely depress this assay.Serum Triglycerides Reference Interval Normal <150 mg/dL Borderline high 150 - 199 mg/dL High 200 - 499 mg/dL Very High > or = 500 mg/dL Very low density lipoprotein (VLDL) cholesterol measurementOrdered By: Twan Guerrero on 10-24-2024 Very low density lipoprotein (VLDL) cholesterol measurement 45 mg/dL High 5-40 [facility] White blood cell (WBC) count Ordered By: Twan Guerrero on 10-24-2024 WBC (Bld) [#/Vol] 8.0 10*3/uL 4.4-11.0 [facility] Urine Cultureon 10-17-2024 [facility] cath urine is not recommended. Growth may represent distal urethral latoya. Streptococcus dysgalactiae equ White Count 25,000-50,000 Proteus mirabilis Proteus mirabilis Streptococcus [...] TMP SMX Islt JOHN 40 S Normal [facility] Comment on above: Performed By: #### L 9000.0810 #### [facility] [address] [place], [address] 12 Lead EKGon 10-14-2024 12 Lead EKG [facility] Cardiovascular Services [address] [place] [address] 12 Lead EKG 10/14/24 0749 MR#: [id number] Acct: [id number] Name: SHIN ROJO Rep #: [id number] : 1955 69 From: Jennie Marmolejo MD [...] Abnormal ECG Confirmed by MAYUR HALL, MARKO ([id number]), editor house organ JARRED ARCOS ([id number]) on 10/17/2024 6:10:01 AM Referred By: Confirmed By: MARKO MARMOLEJO MD 10/17/24 0610 Date Jennie Marmolejo MD CC: Dr. Abel Wang DO Signed Normal [facility] Basic Metabolic Profile (BMP )on 10-14-2024 BUN/CRE 19.2 RATIO Normal 10-20 [facility] Comment on above: Order Comment: 1Y Performed By: #### L 500.2500, L501.5425, L100.0100, L501.9520 ####[facility] [address] [place], [address] CA,Total 8.9 mg/dL Normal 8.5-10.1 [facility] Comment on above: Order Comment: 1Y Performed By: #### L 500.2500, L501.5425, L100.0100, L501.9520 ####[facility] [address] [place], [address] Chloride [Moles/Vol] 110 mmol/L High 98-107 [facility] Comment on above: Order Comment: 1Y Performed By: #### L 500.2500, L501.5425, L100.0100, L501.9520 ####[facility] [address] [place], [address] CO2 [Moles/Vol] 26.0 mmol/L Normal 21.0-32.0 [facility] Comment on above: Order Comment: 1Y Performed By: #### L 500.2500, L501.5425, L100.0100, L501.9520 ####[facility] [address] [place], [address] Creatinine [Mass/Vol] 0.62 mg/dL Normal 0.55-1.02 [facility] Comment on above: Order Comment: 1Y Result Comment: The validity of the calculated GFR GFRAA in patients over 70 years has not been determined. Clinical correlation is essential. Performed By: #### L 500.2500, L501.5425, L100.0100, L501.9520 ####[facility] [address] [place], [address] ECRCL 68.21 ml/min Normal [facility] Comment on above: Order Comment: 1Y Performed By: #### L 500.2500, L501.5425, L100.0100, L501.9520 ####[facility] [address] [place], [address] EST GFR - AA 121 mL/min Normal >60 [facility] Comment on above: Order Comment: 1Y Result Comment: Afri can [place] GFR Calc Performed By: #### L 500.2500, L501.5425, L100.0100, L501.9520 ####[facility] [address] [place], [address] GAP 6 Normal 5-15 [facility] Comment on above: Order Comment: 1Y Performed By: #### L 500.2500, L501.5425, L100.0100, L501.9520 ####[facility] [address] [place], [address] GFR/1.73 sq M.predicted among non-blacks MDRD (S/P/Bld) [Vol rate/Area] 100 mL/min/{1.73_m2} Normal >60 [facility] Comment on above: Order Comment: 1Y Result Comment: Non- GFR Calc Performed By: #### L 500.2500, L501.5425, L100.0100, L501.9520 ####[facility] [address] [place], [address] Glucose [Mass/Vol] 108 mg/dL High 74-106 [facility] Comment on above: Order Comment: 1Y Result Comment: Fast ing Glucose result from 100 to 125 mg/dL suggests IMPAIRED HOMEOSTASIS per A.D.A. criteria. Performed By: #### L 500.2500, L501.5425, L100.0100, L501.9520 ####[facility] [address] [place], [address] Potassium [Moles/Vol] 3.6 mmol/L Normal 3.5-5.1 [facility] Comment on above: Order Comment: 1Y Performed By: #### L 500.2500, L501.5425, L100.0100, L501.9520 ####[facility] [address] [place], [address] Sodium [Moles/Vol] 142 mmol/L Normal 136-145 [facility] Comment on above: Order Comment: 1Y Performed By: #### L 500.2500, L501.5425, L100.0100, L501.9520 ####[facility] [address] [place], [address] Urea nitrogen [Mass/Vol] 12 mg/dL Normal 7-18 [facility] Comment on above: Order Comment: 1Y Performed By: #### L 500.2500, L501.5425, L100.0100, L501.9520 ####[facility] [address] [place], [address] Brain/Head without Contrasto n 10-14-2024 Brain/Head without Contrast [facility] Imaging Services [address] [place] [address] Brain/Head without Contrast MR#: [id number] Acct: [id number] Name: SHIN ROJO Rep #: [id number] : 1955 F 69 From: Josefina barron MD PCP: OUT OF TOWN DOCTOR Status: REG ER Study: Brain/Head without Contrast Date of Exam: 09/21 02/11 Exam# [id number] Ordering Dr: Abel Wang DO [id number] HISTORY: AMS. TECHNIQUE: Multiple axial images were [...] at 9:19 EST , CC: Dr. Abel Wang DO Welfare Specialist: Signed Normal [facility] CBC W/Diff, Automatedon 09-21 PLT EST ADEQUATE Normal ADEQ [facility] Comment on above: Performed By: #### L 500.2500, L501.5425, L100.0100, L501.9520 ####[facility] [address] [place], [address] RED CELL MORPH NORM C+C Normal NORM C C [facility] Comment on above: Performed By: #### L 500.2500, L501.5425, L100.0100, L501.9520 ####[facility] [address] [place], [address] SMEAR COMMENT SCANNED Normal [facility] Comment on above: Performed By: #### L 500.2500, L501.5425, L100.0100, L501.9520 ####[facility] [address] [place], [address] Chest PA and Lateralon 10-14 Chest PA and Lateral [facility] Imaging Services [address] [place] [address] Chest PA and Lateral MR#: [id number] Acct: [id number] Name: SHIN ROJO Rep #: [id number] : 1955 F 69 From: Josefina barron MD PCP: OUT OF TOWN DOCTOR Status: REG ER Study: Chest PA and Lateral Date of Exam: 10/14/24 Exam# [id number] Ordering Dr: Abel Wang DO [id number] HISTORY: chest pain. TECHNIQUE: XR Chest 2 [...] Signed: Josefina Quiroga MD at 9:38 EST , CC: Dr. Abel Wang DO Welfare Specialist: Signed Normal [facility] Emergency Department Summary on 10-14-2024 Emergency Department Summary [facility] Medical Records Department [address] [place] [address] Emergency Department Summary 10/14/24 MR#: [id number] Acct: [id number] Name: SHIN ROJO Rep #: [id number] : 1955 69 From: Abel Wang DO [...] she also has had a dry cough. [facility] Medical History Urinary tract infection Urinary retention [...] 300 mg capsule 300 mg PO DAILY 10/14/24 10/13/24 History oxymetazoline 0.05 % nasal spray 3 spray intranasal Q12H 10/14/24 10/12/24 History (Nasal Decongestant (oxymetazoline)) pantoprazole 20 mg tablet,delayed 20 mg PO DAILY 10/14/24 10/13/24 History release prednisone 50 mg tablet 50 mg PO DAILY 5 days #5 tabs 10/14/24 Unknown Rx pyridoxine (vitamin B6) 100 mg (more content not included)... Normal [facility] L501.4020on 10-14-2024 TROPONIN-I HS 5 pg/mL Normal 3.0-54.0 [facility] Comment on above: Result Comment: Plea se Note: New Test Units and Gender Specific Reference Ranges. For more information see Policy Stat Procedure [place] High Sensitivity Troponin (TNIH) and attachments. Performed By: #### L 501.4020 #### [facility] [address] [place], [address] L501.5425on 10-14-2024 TROPONIN-I HS 6 pg/mL Normal 3.0-54.0 [facility] Comment on above: Order Comment: 1Y Result Comment: Almaz orlando Note: New Test Units and Gender Specific Reference Ranges. For more information see Policy Stat Procedure [place] High Sensitivity Troponin (TNIH) and attachments. Performed By: #### L 500.2500, L501.5425, L100.0100, L501.9520 ####[facility] [address] [place], [address] M100.678on 10-14-2024 M100.678 Pending SARS-CoV-2 (COVID 19) A Positive A INFLUENZA A Negative INFLUENZA B Negative RSV PCR Negative SARS-CoV-2 (COVID 19 PCR) Normal [facility] Comment on above: Performed By: #### L 9000.0810 #### [facility] [address] [place], [address] Thyroid Stim Hormone (TSH)on 10-14-2024 TSH 1.850 uIU/mL Normal 0.358-3.740 [facility] Comment on above: Order Comment: 1Y Performed By: #### L 500.2500, L501.5425, L100.0100, L501.9520 ####[facility] [address] [place], [address] Urinalysis, Completeon 10-14 BACTERIA 3+ /hpf Normal None Seen [facility] Comment on above: Order Comment: COLLE CTOR TO SPECIFY Performed By: #### L 400.0001 #### [facility] [address] [place], [address] EPI,SQUAMOUS 0-5 SEEN Normal 5-10 [facility] Comment on above: Order Comment: COLLE CTOR TO SPECIFY Performed By: #### L 400.0001 #### [facility] [address] [place], [address] WBC 0-5 SEEN Normal 0-5 [facility] Comment on above: Order Comment: COLLE CTOR TO SPECIFY Performed By: #### L 400.0001 #### [facility] [address] [place], [address] Mucus Ql (Urine sed) 0 SEEN Normal [facility] Comment on above: Order Comment: LUCIA CTOR TO SPECIFY Performed By: #### L 400.0001 #### [facility] [address] [place], [address] RBC 0 SEEN Normal 0-5 [facility] Comment on above: Order Comment: LUCIA CTOR TO SPECIFY Performed By: #### L 400.0001 #### [facility] [address] [place], [address] Venous Blood Gason 5 Blood Gas Type TRESA [facility] Comment on above: Performed By: #### L 9000.0810 #### [facility] [address] [place], [address] CO2 [Moles/Vol] 25 mmol/L Normal 23-33 [facility] Comment on above: Performed By: #### L 9000.0810 #### [facility] [address] [place], [address] FI02 21.0 Normal [facility] Comment on above: Performed By: #### L 9000.0810 #### [facility] [address] [place], [address] HCO3 (Bld) [Moles/Vol] 24 mmol/L Normal 22-26 [facility] Comment on above: Performed By: #### L 9000.0810 #### [facility] [address] [place], [address] O2 Delivery Dev Room Air Normal [facility] Comment on above: Performed By: #### L 9000.0810 #### [facility] [address] [place], [address] SITE Not entered [facility] Comment on above: Performed By: #### L 9000.0810 #### [facility] [address] [place], [address] VBG BE 0 mmol/L Normal -1.0-3.5 [facility] Comment on above: Performed By: #### L 9000.0810 #### [facility] [address] [place], [address] VBG pCO2 35.2 mmHg Low 41-51 [facility] Comment on above: Performed By: #### L 9000.0810 #### [facility] [address] [place], [address] VBG pH 7.44 High 7.32-7.42 [facility] Comment on above: Performed By: #### L 9000.0810 #### [facility] [address] [place], [address] VBG PO2 53 mmHg High 25-40 [facility] Comment on above: Performed By: #### L 9000.0810 #### [facility] [address] [place], [address] VBG SO2 89 High 50-70 [facility] Comment on above: Performed By: #### L 9000.0810 #### [facility] [address] [place], [address] CBC W/Diff, Automatedon 11- Absolute Lymph 2.38 X10 3/uL Normal 0.83-4.51 [facility] Comment on above: Order Comment: 204.1 Performed By: #### L 500.4100, L100.0100 ####[facility] [address] [place], [address] Absolute Neut 3.5 X10 3/uL Normal 2.0-7.7 [facility] Comment on above: Order Comment: 204.1 Performed By: #### L 500.4100, L100.0100 ####[facility] [address] [place], [address] Basophils/100 WBC (Bld) 0.6 % Normal 0-1 [facility] Comment on above: Order Comment: 204.1 Performed By: #### L 500.4100, L100.0100 ####[facility] [address] [place], [address] Eosinophils/100 WBC (Bld) 1.8 % Normal 0-5 [facility] Comment on above: Order Comment: 204.1 Performed By: #### L 500.4100, L100.0100 ####[facility] [address] [place], [address] Erythrocyte distribution width (RBC) [Ratio] 14.3 % Normal 11.6-14.6 [facility] Comment on above: Order Comment: 204.1 Performed By: #### L 500.4100, L100.0100 ####[facility] [address] [place], [address] Hematocrit (Bld) [Volume fraction] 35.6 % Low 37-47 [facility] Comment on above: Order Comment: 204.1 Performed By: #### L 500.4100, L100.0100 ####[facility] [address] [place], [address] Hemoglobin (Bld) [Mass/Vol] 11.0 g/dL Low 12.0-15.0 [facility] Comment on above: Order Comment: 204.1 Performed By: #### L 500.4100, L100.0100 ####[facility] [address] [place], [address] IG% 0.300 Normal 0.0-0.9 [facility] Comment on above: Order Comment: 204.1 Result Comment: IG% - Immature Granulocytes (promyelocytes, myelocytes and metamyelocytes) > 1% indicates that a LEFT SHIFT is Present. Performed By: #### L 500.4100, L100.0100 ####[facility] [address] [place], [address] Lymphocytes/100 WBC (Bld) 35.1 % Normal 19-41 [facility] Comment on above: Order Comment: 204.1 Performed By: #### L 500.4100, L100.0100 ####[facility] [address] [place], [address] MCH (RBC) [Entitic mass] 29.3 pg Normal 27.0-32.0 [facility] Comment on above: Order Comment: 204.1 Performed By: #### L [id number], L100.0100 ####[facility] [address] [place], [address] MCHC (RBC) [Mass/Vol] 30.9 g/dL Low 32-36 [facility] Comment on above: Order Comment: 204.1 Performed By: #### L [id number], L100.0100 ####[facility] [address] [place], [address] MCV (RBC) [Entitic vol] 94.7 fL Normal 81-99 [facility] Comment on above: Order Comment: 204.1 Performed By: #### L [id number], L100.0100 ####[facility] [address] [place], [address] Monocytes/100 WBC (Bld) 11.1 % High 0-10 [facility] Comment on above: Order Comment: 204.1 Performed By: #### L [id number], L100.0100 ####[facility] [address] [place], [address] Neutrophils/100 WBC (Bld) 51.1 % Normal 47-70 [facility] Comment on above: Order Comment: 204.1 Performed By: #### L [id number], L100.0100 ####[facility] [address] [place], [address] Nucleated RBC (Bld) [#/Vol] 0 10*3/uL Normal 0-5 [facility] Comment on above: Order Comment: 204.1 Performed By: #### L [id number], L100.0100 ####[facility] [address] [place], [address] Platelet mean volume (Bld) [Entitic vol] 10.8 fL Normal 6.2-12.0 [facility] Comment on above: Order Comment: 204.1 Performed By: #### L [id number], L100.0100 ####[facility] [address] [place], [address] Platelets (Bld) [#/Vol] 240 10*3/uL Normal 150-450 [facility] Comment on above: Order Comment: 204.1 Performed By: #### L [id number], L100.0100 ####[facility] [address] [place], [address] RBC (Bld) [#/Vol] 3.76 10*6/uL Low 4.2-5.4 [facility] Comment on above: Order Comment: 204.1 Performed By: #### L [id number], L100.0100 ####[facility] [address] [place], [address] RDW SD 49.2 fl High 35.1-43.9 [facility] Comment on above: Order Comment: 204.1 Performed By: #### L [id number], L100.0100 ####[facility] [address] [place], [address] WBC (Bld) [#/Vol] 6.8 10*3/uL Normal 4.4-11.0 [facility] Comment on above: Order Comment: 204.1 Performed By: #### L [id number], L100.0100 ####[facility] [address] [place], [address] Lipid Profileon 08-01-2024 Cholesterol [Mass/Vol] 123 mg/dL Normal 200 [facility] Comment on above: Order Comment: 204.1 Result Comment: <200 mg/dL Desirable 200-240 mg/dL Borderline >240 mg/dL High Risk Performed By: #### L [id number], L100.0100 ####[facility] [address] [place], [address] Cholesterol in HDL [Mass/Vol] 35 mg/dL Low [facility] Comment on above: Order Comment: 204.1 Result Comment: The drugs N-Acetylcysteine and Metamizole may falsely depress this assay. Reference Range HDL <40 mg/dL Low HDL Cholesterol HDL >or= 60 mg/dL High HDL Cholesterol Performed By: #### L [id number], L100.0100 ####[facility] [address] [place], [address] Cholesterol in LDL [Mass/Vol] 46 mg/dL Normal 0-130 [facility] Comment on above: Order Comment: 204.1 Performed By: #### L [id number], L100.0100 ####[facility] [address] [place], [address] Cholesterol in VLDL [Mass/Vol] 42 mg/dL High 5-40 [facility] Comment on above: Order Comment: 204.1 Performed By: #### L [id number], L100.0100 ####[facility] [address] [place], [address] Triglyceride [Mass/Vol] 212 mg/dL High [facility] Comment on above: Order Comment: 204.1 Result Comment: The drugs N-Acetylcysteine and Metamizole may falsely depress this assay. Serum Triglycerides Reference Interval Normal <150 mg/dL Borderline high 150 - 199 mg/dL High 200 - 499 mg/dL Very High > or = 500 mg/dL Performed By: #### L [id number], L100.0100 ####[facility] [address] [place], [address] Basophil percentageOrdered B y: Twan Guerrero on 12-21-2023 Bilirubin [Mass/Vol] 0.30 mg/dL 0.20-1.00 [facility] Comment on above: For patients on eltr ombopag therapy, use of Dimension [place] TBIL is not recommended. Chloride [Moles/Vol] 110 mmol/L 98-107 [facility] Glucose [Mass/Vol] 115 mg/dL 74-106 [facility] Comment on above: Fasting Glucose resu lt from 100 to 125 mg/dL suggests IMPAIRED HOMEOSTASIS per A.D.A. criteria. Hemoglobin (Bld) [Mass/Vol] 11.5 g/dL 12.0-15.0 [facility] Potassium [Moles/Vol] 3.8 mmol/L 3.5-5.1 [facility] Protein [Mass/Vol] 6.4 g/dL 6.4-8.2 [facility] Sodium [Moles/Vol] 143 mmol/L 136-145 [facility] WBC (Bld) [#/Vol] 7.9 10*3/uL 4.4-11.0 [facility] Determination of erythrocyte mean corpuscular volume (MCV)Ordered By: Twan Guerrero on 12-21-2023 MCV (RBC) [Entitic vol] 92.0 fL 81-99 [facility] Erythrocyte distribution wid th ratioOrdered By: Twan Guerrero on 12-21-2023 Erythrocyte distribution width (RBC) [Ratio] 14.5 % 11.6-14.6 [facility] Erythrocyte distribution wid th standard deviationOrdered By: Twan Guerrero on 12-21-2023 Erythrocyte distribution width (RBC) [Entitic vol] 48.9 fL 35.1-43.9 [facility] Hematocrit Auto (Bld) [Volum e fraction]Ordered By: Twan Guerrero on 12-21-2023 Hematocrit (Bld) [Volume fraction] 36.6 % 37-47 [facility] Laboratory - Chemistry and C hemistry - challengeOrdered By: Twan Guerrero on 12-21-2023 Albumin/Globulin [Mass ratio] 1.1 {ratio} 0.9-2.4 [facility] ALP [Catalytic activity/Vol] 87 U/L 45-117 [facility] ALT [Catalytic activity/Vol] 37 U/L 13-56 [facility] CO2 [Moles/Vol] 30.0 mmol/L 21.0-32.0 [facility] Globulin (S) [Mass/Vol] 3.1 g/dL 2.2-4.2 [facility] Urea nitrogen/Creatinine [Mass ratio] 19.2 mg/mg 10-20 [facility] Laboratory - Hematology and Cell countsOrdered By: Twan Guerrero on 12-21-2023 MCH (RBC) [Entitic mass] 28.9 pg 27.0-32.0 [facility] MCHC (RBC) [Mass/Vol] 31.4 g/dL 32-36 [facility] Platelet mean volume (Bld) [Entitic vol] 10.9 fL 6.2-12.0 [facility] Platelets (Bld) [#/Vol] 250 10*3/uL 150-450 [facility] No Panel InformationOrdered By: Twan Guerrero on 12-21-2023 Estimated GFR (MDRD) Amer 121 mL/min >60 [facility] Comment on above: GFR Calc Estimated GFR (MDRD) Non-Af Amer 100 mL/min >60 [facility] Comment on above: Non- GFR Calc RBC Auto (Bld) [#/Vol]Ordere d By: Twan Guerrero on 12-21-2023 RBC (Bld) [#/Vol] 3.98 10*6/uL 4.2-5.4 [facility] Serum or plasma calcium nohelia urement (mass/volume)Ordered By: Twan Guerrero on 12-21-2023 Calcium [Mass/Vol] 9.1 mg/dL 8.5-10.1 [facility] Serum or plasma creatinine m easurement (mass/volume)Ordered By: Twan Guerrero on 12-21-2023 Creatinine [Mass/Vol] 0.63 mg/dL 0.55-1.02 [facility] Comment on above: The validity of the calculated GFR & GFRAA in patients over 70 years has not been determined. Clinical correlation is essential. Serum or plasma urea nitroge n measurement (mass/volume)Ordered By: Twan Guerrero on 12-21-2023 Urea nitrogen [Mass/Vol] 12 mg/dL 7-18 [facility] Thin prep Papanicolaou smear with manual screeningOrdered By: Twan Guerrero on 12-21-2023 Thin prep Papanicolaou smear with manual screening 3.3 g/dL 3.2-5.0 [facility] Thin prep Papanicolaou smear with manual screening 23 U/L 15-37 [facility] Thin prep Papanicolaou smear with manual screening 3 5-15 [facility] Absolute lymphocyte countOrd ered By: Twan Guerrero on 11-22-2023 Lymphocytes Auto (Unsp spec) [#/Vol] 2.37 10*3/uL 0.83-4.51 [facility] Automated lymphocyte count a s percentage of total leukocytesOrdered By: Twan Guerrero on 11-22-2023 Lymphocytes/100 WBC Auto (Unsp spec) 33.3 % 19-41 [facility] Basophil percentageOrdered B y: Twan Guerrero on 11-22-2023 Basophils/100 WBC (Bld) 0.6 % 0-1 [facility] Cholesterol [Mass/Vol] 125 mg/dL <200 [facility] Comment on above: <200 mg/dL Desirable 200-240 mg/dL Borderline >240 mg/dL High Risk Eosinophils/100 WBC (Bld) 2.7 % 0-5 [facility] Hemoglobin (Bld) [Mass/Vol] 11.4 g/dL 12.0-15.0 [facility] Monocytes/100 WBC (Bld) 9.1 % 0-10 [facility] Neutrophils (Bld) [#/Vol] 3.8 10*3/uL 2.0-7.7 [facility] Neutrophils/100 WBC (Bld) 53.7 % 47-70 [facility] Triglyceride [Mass/Vol] 201 mg/dL <199 [facility] Comment on above: The drugs N-Acetylcy steine and Metamizole may falsely depress this assay.Serum Triglycerides Reference Interval Normal <150 mg/dL Borderline high 150 - 199 mg/dL High 200 - 499 mg/dL Very High > or = 500 mg/dL WBC (Bld) [#/Vol] 7.1 10*3/uL 4.4-11.0 [facility] Determination of erythrocyte mean corpuscular volume (MCV)Ordered By: Twan Guerrero on 11-22-2023 MCV (RBC) [Entitic vol] 92.5 fL 81-99 [facility] Erythrocyte distribution wid th ratioOrdered By: Twan Guerrero on 11-22-2023 Erythrocyte distribution width (RBC) [Ratio] 14.7 % 11.6-14.6 [facility] Erythrocyte distribution wid th standard deviationOrdered By: Twan Guerrero on 11-22-2023 Erythrocyte distribution width (RBC) [Entitic vol] 49.8 fL 35.1-43.9 [facility] Hematocrit Auto (Bld) [Volum e fraction]Ordered By: Twan Guerrero on 11-22-2023 Hematocrit (Bld) [Volume fraction] 35.9 % 37-47 [facility] Immature granulocytes/100 WB C Auto (Bld)Ordered By: Twan Guerrero on 11-22-2023 Immature granulocytes/100 WBC (Bld) 0.600 % 0.0-0.9 [facility] Comment on above: IG% - Immature Granu locytes (promyelocytes, myelocytes and metamyelocytes) > 1% indicates that a LEFT SHIFT is Present. Laboratory - Chemistry and C hemistry - challengeOrdered By: Twan Guerrero on 11-22-2023 Cholesterol in HDL [Mass/Vol] 33 mg/dL >40 [facility] Comment on above: The drugs N-Acetylcy steine and Metamizole may falsely depress this assay. Reference Range HDL <40 mg/dL Low HDL Cholesterol HDL >or= 60 mg/dL High HDL Cholesterol Cholesterol in LDL [Mass/Vol] 52 mg/dL 0-130 [facility] Laboratory - Hematology and Cell countsOrdered By: Twan Guerrero on 11-22-2023 MCH (RBC) [Entitic mass] 29.4 pg 27.0-32.0 [facility] MCHC (RBC) [Mass/Vol] 31.8 g/dL 32-36 [facility] Nucleated RBC/100 WBC (Bld) [Ratio] 0 % 0-5 [facility] Platelet mean volume (Bld) [Entitic vol] 10.6 fL 6.2-12.0 [facility] Platelets (Bld) [#/Vol] 229 10*3/uL 150-450 [facility] No Panel InformationOrdered By: Twan Guerrero on 11-22-2023 VLDL Cholesterol 40 mg/dL 5-40 [facility] RBC Auto (Bld) [#/Vol]Ordere d By: Twan Guerrero on 11-22-2023 RBC (Bld) [#/Vol] 3.88 10*6/uL 4.2-5.4 [facility] Laboratory - Chemistry and C hemistry - challengeOrdered By: Twan Guerrero on 11-09-2023 Cobalamin (Vitamin B12) [Mass/Vol] 1084 pg/mL 211-911 [facility] Basophil percentageOrdered B y: Twan Guerrero on 09-22-2023 Bilirubin [Mass/Vol] 0.30 mg/dL 0.20-1.00 [facility] Comment on above: For patients on eltr ombopag therapy, use of Dimension [place] TBIL is not recommended. Chloride [Moles/Vol] 114 mmol/L 98-107 [facility] Glucose [Mass/Vol] 101 mg/dL 74-106 [facility] Comment on above: Fasting Glucose resu lt from 100 to 125 mg/dL suggests IMPAIRED HOMEOSTASIS per A.D.A. criteria. Potassium [Moles/Vol] 4.0 mmol/L 3.5-5.1 [facility] Protein [Mass/Vol] 6.1 g/dL 6.4-8.2 [facility] Sodium [Moles/Vol] 144 mmol/L 136-145 [facility] WBC (Bld) [#/Vol] 6.6 10*3/uL 4.4-11.0 [facility] Blood erythrocytes count (nu mber/volume)Ordered By: Twan Guerrero on 09-22-2023 RBC (Bld) [#/Vol] 3.87 10*6/uL 4.2-5.4 [facility] Blood hemoglobin measurement (mass/volume)Ordered By: Twan Guerrero on 09-22-2023 Hemoglobin (Bld) [Mass/Vol] 11.4 g/dL 12.0-15.0 [facility] Blood platelet mean volumeOr dered By: Twan Guerrero on 09-22-2023 Platelet mean volume (Bld) [Entitic vol] 11.0 fL 6.2-12.0 [facility] Determination of erythrocyte mean corpuscular volume (MCV)Ordered By: Twan Guerrero on 09-22-2023 MCV (RBC) [Entitic vol] 92.5 fL 81-99 [facility] Hematocrit Auto (Bld) [Volum e fraction]Ordered By: Twan Guerrero on 09-22-2023 Hematocrit (Bld) [Volume fraction] 35.8 % 37-47 [facility] Laboratory - Chemistry and C hemistry - challengeOrdered By: Twan Guerrero on 09-22-2023 ALP [Catalytic activity/Vol] 86 U/L 45-117 [facility] ALT [Catalytic activity/Vol] 41 U/L 13-56 [facility] CO2 [Moles/Vol] 27.0 mmol/L 21.0-32.0 [facility] Globulin (S) [Mass/Vol] 3.0 g/dL 2.2-4.2 [facility] Urea nitrogen/Creatinine [Mass ratio] 15.5 mg/mg 10-20 [facility] Laboratory - Hematology and Cell countsOrdered By: Twan Guerrero on 09-22-2023 Erythrocyte distribution width (RBC) [Entitic vol] 49.5 fL 35.1-43.9 [facility] Erythrocyte distribution width (RBC) [Ratio] 14.8 % 11.6-14.6 [facility] MCH (RBC) [Entitic mass] 29.5 pg 27.0-32.0 [facility] MCHC Auto (RBC) [Mass/Vol]Or dered By: Twan Guerrero on 09-22-2023 MCHC (RBC) [Mass/Vol] 31.8 g/dL 32-36 [facility] No Panel InformationOrdered By: Twan Guerrero on 09-22-2023 Estimated GFR (MDRD) Amer 117 mL/min >60 [facility] Comment on above: GFR Calc Estimated GFR (MDRD) Non-Af Amer 97 mL/min >60 [facility] Comment on above: Non- GFR Calc Platelets bldOrdered By: Gisel Guerrero on 09-22-2023 Platelets (Bld) [#/Vol] 230 10*3/uL 150-450 [facility] Serum or plasma albumin nohelia urement (mass/volume)Ordered By: Twan Guerrero on 09-22-2023 Albumin [Mass/Vol] 3.1 g/dL 3.2-5.0 [facility] Serum or plasma albumin/glob ulin mass ratioOrdered By: Twan Guerrero on 09-22-2023 Albumin/Globulin [Mass ratio] 1.0 {ratio} 0.9-2.4 [facility] Serum or plasma calcium nohelia urement (mass/volume)Ordered By: Twan Guerrero on 09-22-2023 Calcium [Mass/Vol] 9.1 mg/dL 8.5-10.1 [facility] Serum or plasma creatinine m easurement (mass/volume)Ordered By: Twan Guerrero on 09-22-2023 Creatinine [Mass/Vol] 0.65 mg/dL 0.55-1.02 [facility] Comment on above: The validity of the calculated GFR & GFRAA in patients over 70 years has not been determined. Clinical correlation is essential. Serum or plasma urea nitroge n measurement (mass/volume)Ordered By: Twan Guerrero on 09-22-2023 Urea nitrogen [Mass/Vol] 10 mg/dL 7-18 [facility] Thin prep Papanicolaou smear with manual screeningOrdered By: Twan Geurrero on 09-22-2023 Thin prep Papanicolaou smear with manual screening 22 U/L 15-37 [facility] Thin prep Papanicolaou smear with manual screening 3 5-15 [facility] Absolute lymphocyte countOrd ered By: Twan Guerrero on 08-30-2023 Lymphocytes Auto (Unsp spec) [#/Vol] 2.43 10*3/uL 0.83-4.51 [facility] Basophil percentageOrdered B y: Twan Guerrero on 08-30-2023 Basophils/100 WBC (Bld) 0.7 % 0-1 [facility] Cholesterol [Mass/Vol] 107 mg/dL <200 [facility] Comment on above: <200 mg/dL Desirable 200-240 mg/dL Borderline >240 mg/dL High Risk Eosinophils/100 WBC (Bld) 1.7 % 0-5 [facility] Neutrophils (Bld) [#/Vol] 3.8 10*3/uL 2.0-7.7 [facility] Neutrophils/100 WBC (Bld) 54.5 % 47-70 [facility] Triglyceride [Mass/Vol] 147 mg/dL <199 [facility] Comment on above: The drugs N-Acetylcy steine and Metamizole may falsely depress this assay.Serum Triglycerides Reference Interval Normal <150 mg/dL Borderline high 150 - 199 mg/dL High 200 - 499 mg/dL Very High > or = 500 mg/dL WBC (Bld) [#/Vol] 7.1 10*3/uL 4.4-11.0 [facility] Blood erythrocytes count (nu mber/volume)Ordered By: Twan Guerrero on 08-30-2023 RBC (Bld) [#/Vol] 3.96 10*6/uL 4.2-5.4 [facility] Blood hemoglobin measurement (mass/volume)Ordered By: Twan Guerrero on 08-30-2023 Hemoglobin (Bld) [Mass/Vol] 11.3 g/dL 12.0-15.0 [facility] Blood lymphocytes/100 leukoc ytesOrdered By: Twan Guerrero on 08-30-2023 Lymphocytes/100 WBC (Bld) 34.5 % 19-41 [facility] Blood monocytes/100 leukocyt esOrdered By: Twan Guerrero on 08-30-2023 Monocytes/100 WBC (Bld) 8.2 % 0-10 [facility] Blood platelet mean volumeOr dered By: Twan Guerrero on 08-30-2023 Platelet mean volume (Bld) [Entitic vol] 10.9 fL 6.2-12.0 [facility] Determination of erythrocyte mean corpuscular volume (MCV)Ordered By: Twan Guerrero on 08-30-2023 MCV (RBC) [Entitic vol] 92.9 fL 81-99 [facility] Hematocrit Auto (Bld) [Volum e fraction]Ordered By: Twan Guerrero on 08-30-2023 Hematocrit (Bld) [Volume fraction] 36.8 % 37-47 [facility] - Hematology and Cell countsOrdered By: Twan Guerrero on 08-30-2023 Erythrocyte distribution width (RBC) [Entitic vol] 50.4 fL 35.1-43.9 [facility] Erythrocyte distribution width (RBC) [Ratio] 14.7 % 11.6-14.6 [facility] Immature granulocytes/100 WBC (Bld) 0.400 % 0.0-0.9 [facility] Comment on above: IG% - Immature Granu locytes (promyelocytes, myelocytes and metamyelocytes) > 1% indicates that a LEFT SHIFT is Present. MCH (RBC) [Entitic mass] 28.5 pg 27.0-32.0 [facility] Nucleated RBC/100 WBC (Bld) [Ratio] 0 % 0-5 [facility] MCHC Auto (RBC) [Mass/Vol]Or dered By: Twan Guerrero on 08-30-2023 MCHC (RBC) [Mass/Vol] 30.7 g/dL 32-36 [facility] Platelets bldOrdered By: Gisel Guerrero on 08-30-2023 Platelets (Bld) [#/Vol] 247 10*3/uL 150-450 [facility] Serum or plasma cholesterol in HDL measurement (mass/volume)Ordered By: Twan Guerrero on 08-30-2023 Cholesterol in HDL [Mass/Vol] 35 mg/dL >40 [facility] Comment on above: The drugs N-Acetylcy steine and Metamizole may falsely depress this assay. Reference Range HDL <40 mg/dL Low HDL Cholesterol HDL >or= 60 mg/dL High HDL Cholesterol Serum or plasma cholesterol in VLDL measurement (mass/volume)Ordered By: Twan Guerrero on 08-30-2023 Cholesterol in VLDL [Mass/Vol] 29 mg/dL 5-40 [facility] Serum or plasma low density lipoprotein (LDL) cholesterol measurement (mass/volume)Ordered By: Twan Guerrero on 08-30-2023 Cholesterol in LDL [Mass/Vol] 43 mg/dL 0-130 [facility] Absolute lymphocyte countOrd ered By: Twan Guerrero on 06-07-2023 Lymphocytes Auto (Unsp spec) [#/Vol] 2.26 10*3/uL 0.83-4.51 [facility] Basophil percentageOrdered B y: Twan Guerrero on 06-07-2023 Basophils/100 WBC (Bld) 1.0 % 0-1 [facility] Cholesterol [Mass/Vol] 121 mg/dL <200 [facility] Comment on above: <200 mg/dL Desirable 200-240 mg/dL Borderline >240 mg/dL High Risk Eosinophils/100 WBC (Bld) 4.0 % 0-5 [facility] Neutrophils (Bld) [#/Vol] 2.7 10*3/uL 2.0-7.7 [facility] Neutrophils/100 WBC (Bld) 43.8 % 47-70 [facility] Triglyceride [Mass/Vol] 233 mg/dL <199 [facility] Comment on above: The drugs N-Acetylcy steine and Metamizole may falsely depress this assay.Serum Triglycerides Reference Interval Normal <150 mg/dL Borderline high 150 - 199 mg/dL High 200 - 499 mg/dL Very High > or = 500 mg/dL WBC (Bld) [#/Vol] 6.2 10*3/uL 4.4-11.0 [facility] Blood erythrocytes count (nu mber/volume)Ordered By: Twan Guerrero on 06-07-2023 RBC (Bld) [#/Vol] 3.93 10*6/uL 4.2-5.4 [facility] Blood hemoglobin measurement (mass/volume)Ordered By: Twan Guerrero on 06-07-2023 Hemoglobin (Bld) [Mass/Vol] 11.4 g/dL 12.0-15.0 [facility] Blood lymphocytes/100 leukoc ytesOrdered By: Twan Guerrero on 06-07-2023 Lymphocytes/100 WBC (Bld) 36.3 % 19-41 [facility] Blood monocytes/100 leukocyt esOrdered By: Twan Guerrero on 06-07-2023 Monocytes/100 WBC (Bld) 14.4 % 0-10 [facility] Blood platelet mean volumeOr dered By: Twan Guerrero on 06-07-2023 Platelet mean volume (Bld) [Entitic vol] 10.7 fL 6.2-12.0 [facility] Determination of erythrocyte mean corpuscular volume (MCV)Ordered By: Twan Guerrero on 06-07-2023 MCV (RBC) [Entitic vol] 94.1 fL 81-99 [facility] Hematocrit Auto (Bld) [Volum e fraction]Ordered By: Twan Guerrero on 06-07-2023 Hematocrit (Bld) [Volume fraction] 37.0 % 37-47 [facility] Laboratory - Hematology and Cell countsOrdered By: Twan Guerrero on 06-07-2023 Erythrocyte distribution width (RBC) [Entitic vol] 52.0 fL 35.1-43.9 [facility] Erythrocyte distribution width (RBC) [Ratio] 14.8 % 11.6-14.6 [facility] Immature granulocytes/100 WBC (Bld) 0.500 % 0.0-0.9 [facility] Comment on above: IG% - Immature Granu locytes (promyelocytes, myelocytes and metamyelocytes) > 1% indicates that a LEFT SHIFT is Present. MCH (RBC) [Entitic mass] 29.0 pg 27.0-32.0 [facility] Nucleated RBC/100 WBC (Bld) [Ratio] 0 % 0-5 [facility] MCHC Auto (RBC) [Mass/Vol]Or dered By: Twan Guerrero on 06-07-2023 MCHC (RBC) [Mass/Vol] 30.8 g/dL 32-36 [facility] Platelets bldOrdered By: Gisel Guerrero on 06-07-2023 Platelets (Bld) [#/Vol] 234 10*3/uL 150-450 [facility] Serum or plasma cholesterol in HDL measurement (mass/volume)Ordered By: Twan Guerrero on 06-07-2023 Cholesterol in HDL [Mass/Vol] 31 mg/dL >40 [facility] Comment on above: The drugs N-Acetylcy steine and Metamizole may falsely depress this assay. Reference Range HDL <40 mg/dL Low HDL Cholesterol HDL >or= 60 mg/dL High HDL Cholesterol Serum or plasma cholesterol in VLDL measurement (mass/volume)Ordered By: Twan Guerrero on 06-07-2023 Cholesterol in VLDL [Mass/Vol] 47 mg/dL 5-40 [facility] Serum or plasma low density lipoprotein (LDL) cholesterol measurement (mass/volume)Ordered By: Twan Guerrero on 06-07-2023 Cholesterol in LDL [Mass/Vol] 43 mg/dL 0-130 [facility] Absolute lymphocyte countOrd ered By: Twan Guerrero on 03-15-2023 Lymphocytes Auto (Unsp spec) [#/Vol] 2.21 10*3/uL 0.83-4.51 [facility] Basophil percentageOrdered B y: Twan Guerrero on 03-15-2023 Basophils/100 WBC (Bld) 0.5 % 0-1 [facility] Cholesterol [Mass/Vol] 105 mg/dL <200 [facility] Comment on above: <200 mg/dL Desirable 200-240 mg/dL Borderline >240 mg/dL High Risk Eosinophils/100 WBC (Bld) 1.7 % 0-5 [facility] Neutrophils (Bld) [#/Vol] 4.9 10*3/uL 2.0-7.7 [facility] Neutrophils/100 WBC (Bld) 61.2 % 47-70 [facility] Triglyceride [Mass/Vol] 174 mg/dL <199 [facility] Comment on above: The drugs N-Acetylcy steine and Metamizole may falsely depress this assay.Serum Triglycerides Reference Interval Normal <150 mg/dL Borderline high 150 - 199 mg/dL High 200 - 499 mg/dL Very High > or = 500 mg/dL WBC (Bld) [#/Vol] 8.1 10*3/uL 4.4-11.0 [facility] Blood erythrocytes count (nu mber/volume)Ordered By: Twan Guerrero on 03-15-2023 RBC (Bld) [#/Vol] 4.06 10*6/uL 4.2-5.4 [facility] Blood hemoglobin measurement (mass/volume)Ordered By: Twan Guerrero on 03-15-2023 Hemoglobin (Bld) [Mass/Vol] 11.8 g/dL 12.0-15.0 [facility] Blood lymphocytes/100 leukoc ytesOrdered By: Twan Guerrero on 03-15-2023 Lymphocytes/100 WBC (Bld) 27.5 % 19-41 [facility] Blood monocytes/100 leukocyt esOrdered By: Twan Guerrero on 03-15-2023 Monocytes/100 WBC (Bld) 8.7 % 0-10 [facility] Blood platelet mean volumeOr dered By: Twan Guerrero on 03-15-2023 Platelet mean volume (Bld) [Entitic vol] 10.8 fL 6.2-12.0 [facility] Determination of erythrocyte mean corpuscular volume (MCV)Ordered By: Twna Guerrero on 03-15-2023 MCV (RBC) [Entitic vol] 93.8 fL 81-99 [facility] Hematocrit Auto (Bld) [Volum e fraction]Ordered By: Twan Guerrero on 03-15-2023 Hematocrit (Bld) [Volume fraction] 38.1 % 37-47 [facility] - Hematology and Cell countsOrdered By: Twan Guerrero on 03-15-2023 Erythrocyte distribution width (RBC) [Entitic vol] 52.6 fL 35.1-43.9 [facility] Erythrocyte distribution width (RBC) [Ratio] 15.0 % 11.6-14.6 [facility] Immature granulocytes/100 WBC (Bld) 0.400 % 0.0-0.9 [facility] Comment on above: IG% - Immature Granu locytes (promyelocytes, myelocytes and metamyelocytes) > 1% indicates that a LEFT SHIFT is Present. MCH (RBC) [Entitic mass] 29.1 pg 27.0-32.0 [facility] Nucleated RBC/100 WBC (Bld) [Ratio] 0 % 0-5 [facility] MCHC Auto (RBC) [Mass/Vol]Or dered By: Twan Guerrero on 03-15-2023 MCHC (RBC) [Mass/Vol] 31.0 g/dL 32-36 [facility] Platelets bldOrdered By: Gisel Guerrero on 03-15-2023 Platelets (Bld) [#/Vol] 247 10*3/uL 150-450 [facility] Serum or plasma cholesterol in HDL measurement (mass/volume)Ordered By: Twan Guerrero on 03-15-2023 Cholesterol in HDL [Mass/Vol] 34 mg/dL >40 [facility] Comment on above: The drugs N-Acetylcy steine and Metamizole may falsely depress this assay. Reference Range HDL <40 mg/dL Low HDL Cholesterol HDL >or= 60 mg/dL High HDL Cholesterol Serum or plasma cholesterol in VLDL measurement (mass/volume)Ordered By: Twan Guerrero on 03-15-2023 Cholesterol in VLDL [Mass/Vol] 35 mg/dL 5-40 [facility] Serum or plasma low density lipoprotein (LDL) cholesterol measurement (mass/volume)Ordered By: Twan Guerrero on 03-15-2023 Cholesterol in LDL [Mass/Vol] 36 mg/dL 0-130 [facility] Serum or plasma transthyreti n measurement (mass/volume)Ordered By: Twan Guerrero on 03-15-2023 Prealbumin [Mass/Vol] 23.4 mg/dL 20.0-40.0 [facility] No Panel InformationOrdered By: Twan Guerrero on 01-06-2023 CA 125 Antigen 13.8 U/mL 0.0-38.1 [facility] Comment on above: [employer] El ectrochemiluminescence Immunoassay(ECLIA)Values obtained with different assay methods or kits cannotbe used interchangeably. Results cannot be interpreted asabsolute evidence of the presence or absence of malignantdisease.Performed at: [facility] [id number] Director: Boston Bradford PhD, Phone: [phone] Absolute lymphocyte countOrd ered By: Twan Guerrero on 12-14-2022 Lymphocytes Auto (Unsp spec) [#/Vol] 2.49 10*3/uL 0.83-4.51 [facility] Basophil percentageOrdered B y: Twan Guerrero on 12-14-2022 Basophils/100 WBC (Bld) 0.7 % 0-1 [facility] Cholesterol [Mass/Vol] 126 mg/dL <200 [facility] Comment on above: <200 mg/dL Desirable 200-240 mg/dL Borderline >240 mg/dL High Risk Eosinophils/100 WBC (Bld) 1.5 % 0-5 [facility] Neutrophils (Bld) [#/Vol] 3.5 10*3/uL 2.0-7.7 [facility] Neutrophils/100 WBC (Bld) 50.6 % 47-70 [facility] Triglyceride [Mass/Vol] 244 mg/dL <199 [facility] Comment on above: The drugs N-Acetylcy steine and Metamizole may falsely depress this assay.Serum Triglycerides Reference Interval Normal <150 mg/dL Borderline high 150 - 199 mg/dL High 200 - 499 mg/dL Very High > or = 500 mg/dL WBC (Bld) [#/Vol] 6.8 10*3/uL 4.4-11.0 [facility] Blood erythrocytes count (nu mber/volume)Ordered By: Twan Guerrero on 12-14-2022 RBC (Bld) [#/Vol] 4.12 10*6/uL 4.2-5.4 [facility] Blood hemoglobin measurement (mass/volume)Ordered By: Twan Guerrero on 12-14-2022 Hemoglobin (Bld) [Mass/Vol] 11.9 g/dL 12.0-15.0 [facility] Blood lymphocytes/100 leukoc ytesOrdered By: Twan Guerrero on 12-14-2022 Lymphocytes/100 WBC (Bld) 36.5 % 19-41 [facility] Blood monocytes/100 leukocyt esOrdered By: Twan Guerrero on 12-14-2022 Monocytes/100 WBC (Bld) 10.3 % 0-10 [facility] Blood platelet mean volumeOr dered By: Twan Guerrero on 12-14-2022 Platelet mean volume (Bld) [Entitic vol] 10.8 fL 6.2-12.0 [facility] Determination of erythrocyte mean corpuscular volume (MCV)Ordered By: Twan Guerrero on 12-14-2022 MCV (RBC) [Entitic vol] 94.4 fL 81-99 [facility] Hematocrit Auto (Bld) [Volum e fraction]Ordered By: Twan Guerrero on 12-14-2022 Hematocrit (Bld) [Volume fraction] 38.9 % 37-47 [facility] - Hematology and Cell countsOrdered By: Twan Guerrero on 12-14-2022 Erythrocyte distribution width (RBC) [Entitic vol] 52.0 fL 35.1-43.9 [facility] Erythrocyte distribution width (RBC) [Ratio] 14.8 % 11.6-14.6 [facility] Immature granulocytes/100 WBC (Bld) 0.400 % 0.0-0.9 [facility] Comment on above: IG% - Immature Granu locytes (promyelocytes, myelocytes and metamyelocytes) > 1% indicates that a LEFT SHIFT is Present. MCH (RBC) [Entitic mass] 28.9 pg 27.0-32.0 [facility] Nucleated RBC/100 WBC (Bld) [Ratio] 0 % 0-5 [facility] MCHC Auto (RBC) [Mass/Vol]Or dered By: Twan Guerrero on 12-14-2022 MCHC (RBC) [Mass/Vol] 30.6 g/dL 32-36 [facility] Platelets bldOrdered By: Gisel Guerrero on 12-14-2022 Platelets (Bld) [#/Vol] 230 10*3/uL 150-450 [facility] Serum or plasma cholesterol in HDL measurement (mass/volume)Ordered By: Twan Guerrero on 12-14-2022 Cholesterol in HDL [Mass/Vol] 34 mg/dL >40 [facility] Comment on above: The drugs N-Acetylcy steine and Metamizole may falsely depress this assay. Reference Range HDL <40 mg/dL Low HDL Cholesterol HDL >or= 60 mg/dL High HDL Cholesterol Serum or plasma cholesterol in VLDL measurement (mass/volume)Ordered By: Twan Guerrero on 12-14-2022 Cholesterol in VLDL [Mass/Vol] 49 mg/dL 5-40 [facility] Serum or plasma low density lipoprotein (LDL) cholesterol measurement (mass/volume)Ordered By: Twan Guerrero on 12-14-2022 Cholesterol in LDL [Mass/Vol] 43 mg/dL 0-130 [facility] Culture, urineOrdered By: Ervin on 11-07-2022 Bacteria identified Cx Nom (U) Enterococcus faecalis [facility] Basophil percentageOrdered B y: Twan Guerrero on 10-27-2022 WBC (Bld) [#/Vol] 8.1 10*3/uL 4.4-11.0 [facility] Blood erythrocytes count (nu mber/volume)Ordered By: Twan Guerrero on 10-27-2022 RBC (Bld) [#/Vol] 4.02 10*6/uL 4.2-5.4 [facility] Blood hemoglobin measurement (mass/volume)Ordered By: Twan Guerrero on 10-27-2022 Hemoglobin (Bld) [Mass/Vol] 11.7 g/dL 12.0-15.0 [facility] Blood platelet mean volumeOr dered By: Twan Guerrero on 10-27-2022 Platelet mean volume (Bld) [Entitic vol] 10.7 fL 6.2-12.0 [facility] Determination of erythrocyte mean corpuscular volume (MCV)Ordered By: Twan Guerrero on 10-27-2022 MCV (RBC) [Entitic vol] 91.5 fL 81-99 [facility] Hematocrit Auto (Bld) [Volum e fraction]Ordered By: Twan Guerrero on 10-27-2022 Hematocrit (Bld) [Volume fraction] 36.8 % 37-47 [facility] - Hematology and Cell countsOrdered By: Twan Guerrero on 10-27-2022 Erythrocyte distribution width (RBC) [Entitic vol] 51.2 fL 35.1-43.9 [facility] Erythrocyte distribution width (RBC) [Ratio] 15.0 % 11.6-14.6 [facility] MCH (RBC) [Entitic mass] 29.1 pg 27.0-32.0 [facility] MCHC Auto (RBC) [Mass/Vol]Or dered By: Twan Guerrero on 10-27-2022 MCHC (RBC) [Mass/Vol] 31.8 g/dL 32-36 [facility] Platelets bldOrdered By: Gisel Guerrero on 10-27-2022 Platelets (Bld) [#/Vol] 223 10*3/uL 150-450 [facility] Basophil percentageOrdered B y: Twan Guerrero on 10-26-2022 Basophil percentage 0-5 SEEN /hpf 0-5 [facility] Bilirubin Test strip Ql (U)O rdered By: Twan Guerrero on 10-26-2022 Bilirubin Ql (U) Negative Negative [facility] Ketones Test strip Ql (U)Ord ered By: Twan Guerrero on 10-26-2022 Ketones Ql (U) Negative Negative [facility] Mucus LM Ql (Urine sed)Order ed By: Twan Guerrero on 10-26-2022 Mucus Ql (Urine sed) 0 SEEN /hpf [facility] Nitrite Test strip Ql (U)Ord ered By: Twan Guerrero on 10-26-2022 Nitrite Ql (U) Negative Negative [facility] Protein Test strip Ql (U)Ord ered By: Twan Guerrero on 10-26-2022 Protein Ql (U) 30 mg/dl Negative [facility] Squamous epithelial cells de tection in urine sediment by light microscopyOrdered By: Twan Guerrero on 10-26-2022 Epithelial cells.squamous LM Ql (Urine sed) 0-5 SEEN /hpf 5-10 [facility] Urine blood detectionOrdered By: Twan Guerrero on 10-26-2022 RBC Ql (U) 250 /ul Negative [facility] RBC Ql (U) 25-50 SEEN /hpf 0-5 [facility] Urine clarityOrdered By: Gisel Guerrero on 10-26-2022 Clarity (U) Sl. Cloudy Clear [facility] Urine color determinationOrd ered By: Twan Guerrero on 10-26-2022 Color (U) Yellow Yellow [facility] Urine glucose detectionOrder ed By: Twan Guerrero on 10-26-2022 Glucose Ql (U) Normal mg/dl Normal [facility] Urine leukocyte esterase det ection by dipstickOrdered By: Twan Guerrero on 10-26-2022 Leukocyte esterase Test strip Ql (U) 25 /ul Negative [facility] Urine pHOrdered By: Twan esparza on 10-26-2022 pH (U) 8.0 [pH] 5.0 - 8.0 [facility] Urine sediment bacteria coun t by microscopy (number/high power field)Ordered By: Twan Guerrero on 10-26-2022 Bacteria LM.HPF (Urine sed) [#/Area] RARE /hpf None Seen [facility] Urine specific gravity measu rementOrdered By: Twan Guerrero on 10-26-2022 Specific gravity (U) [Rel density] 1.010 1.002-1.030 [facility] Urobilinogen Auto test strip Ql (U)Ordered By: Twan Guerrero on 10-26-2022 Urobilinogen Ql (U) Normal mg/dl Normal [facility] Absolute lymphocyte countOrd ered By: [facility] on 09-22-2022 Lymphocytes Auto (Unsp spec) [#/Vol] 2.92 10*3/uL 0.83-4.51 [facility] Basophil percentageOrdered B y: [facility] on 09-22-2022 Basophils/100 WBC (Bld) 0.2 % 0-1 [facility] Cholesterol [Mass/Vol] 132 mg/dL <200 [facility] Comment on above: <200 mg/dL Desirable 200-240 mg/dL Borderline >240 mg/dL High Risk Eosinophils/100 WBC (Bld) 1.3 % 0-5 [facility] Neutrophils (Bld) [#/Vol] 6.0 10*3/uL 2.0-7.7 [facility] Neutrophils/100 WBC (Bld) 60.9 % 47-70 [facility] Triglyceride [Mass/Vol] 202 mg/dL <199 [facility] Comment on above: The drugs N-Acetylcy steine and Metamizole may falsely depress this assay.Serum Triglycerides Reference Interval Normal <150 mg/dL Borderline high 150 - 199 mg/dL High 200 - 499 mg/dL Very High > or = 500 mg/dL WBC (Bld) [#/Vol] 9.8 10*3/uL 4.4-11.0 [facility] Blood erythrocytes count (nu mber/volume)Ordered By: [facility] on 09-22-2022 RBC (Bld) [#/Vol] 3.83 10*6/uL 4.2-5.4 [facility] Blood hemoglobin measurement (mass/volume)Ordered By: [facility] on 09-22-2022 Hemoglobin (Bld) [Mass/Vol] 11.4 g/dL 12.0-15.0 [facility] Blood lymphocytes/100 leukoc ytesOrdered By: [facility] on 09-22-2022 Lymphocytes/100 WBC (Bld) 29.7 % 19-41 [facility] Blood monocytes/100 leukocyt esOrdered By: [facility] on 09-22-2022 Monocytes/100 WBC (Bld) 7.6 % 0-10 [facility] Blood platelet mean volumeOr dered By: [facility] on 09-22-2022 Platelet mean volume (Bld) [Entitic vol] 10.6 fL 6.2-12.0 [facility] Culture, urineOrdered By: Dr Robb Mcintosh on 09-22-2022 Bacteria identified Cx Nom (U) Enterococcus faecalis [facility] Determination of erythrocyte mean corpuscular volume (MCV)Ordered By: [facility] on 09-22-2022 MCV (RBC) [Entitic vol] 93.2 fL 81-99 [facility] Hematocrit Auto (Bld) [Volum e fraction]Ordered By: [facility] on 09-22-2022 Hematocrit (Bld) [Volume fraction] 35.7 % 37-47 [facility] - Hematology and Cell countsOrdered By: [facility] on 09-22-2022 Erythrocyte distribution width (RBC) [Entitic vol] 54.6 fL 35.1-43.9 [facility] Erythrocyte distribution width (RBC) [Ratio] 15.9 % 11.6-14.6 [facility] Immature granulocytes/100 WBC (Bld) 0.300 % 0.0-0.9 [facility] Comment on above: IG% - Immature Granu locytes (promyelocytes, myelocytes and metamyelocytes) > 1% indicates that a LEFT SHIFT is Present. MCH (RBC) [Entitic mass] 29.8 pg 27.0-32.0 [facility] Nucleated RBC/100 WBC (Bld) [Ratio] 0 % 0-5 [facility] MCHC Auto (RBC) [Mass/Vol]Or dered By: [facility] on 09-22-2022 MCHC (RBC) [Mass/Vol] 31.9 g/dL 32-36 [facility] Platelets bldOrdered By: [facility] on 09-22-2022 Platelets (Bld) [#/Vol] 198 10*3/uL 150-450 [facility] Serum or plasma cholesterol in HDL measurement (mass/volume)Ordered By: [facility] on 09-22-2022 Cholesterol in HDL [Mass/Vol] 35 mg/dL >40 [facility] Comment on above: The drugs N-Acetylcy steine and Metamizole may falsely depress this assay. Reference Range HDL <40 mg/dL Low HDL Cholesterol HDL >or= 60 mg/dL High HDL Cholesterol Serum or plasma cholesterol in VLDL measurement (mass/volume)Ordered By: [facility] on 09-22-2022 Cholesterol in VLDL [Mass/Vol] 40 mg/dL 5-40 [facility] Serum or plasma low density lipoprotein (LDL) cholesterol measurement (mass/volume)Ordered By: [facility] on 09-22-2022 Cholesterol in LDL [Mass/Vol] 57 mg/dL 0-130 [facility] Basophil percentageOrdered B y: Portillo Trujillo on 09-15-2022 Chloride [Moles/Vol] 111 mmol/L 98-107 [facility] Glucose [Mass/Vol] 73 mg/dL 74-106 [facility] Potassium [Moles/Vol] 3.7 mmol/L 3.5-5.1 [facility] Sodium [Moles/Vol] 142 mmol/L 136-145 [facility] WBC (Bld) [#/Vol] 16.2 10*3/uL 4.4-11.0 [facility] Blood erythrocytes count (nu mber/volume)Ordered By: Portillo Trujillo on 09-15-2022 RBC (Bld) [#/Vol] 4.03 10*6/uL 4.2-5.4 [facility] Blood hemoglobin measurement (mass/volume)Ordered By: Portillo Trujillo on 09-15-2022 Hemoglobin (Bld) [Mass/Vol] 12.0 g/dL 12.0-15.0 [facility] Blood platelet mean volumeOr dered By: Portillo Trujillo on 09-15-2022 Platelet mean volume (Bld) [Entitic vol] 10.5 fL 6.2-12.0 [facility] Determination of erythrocyte mean corpuscular volume (MCV)Ordered By: Portillo Trujillo on 09-15-2022 MCV (RBC) [Entitic vol] 92.6 fL 81-99 [facility] Hematocrit Auto (Bld) [Volum e fraction]Ordered By: Portillo Trujillo on 09-15-2022 Hematocrit (Bld) [Volume fraction] 37.3 % 37-47 [facility] - Chemistry and C hemistry - challengeOrdered By: Portillo Trujillo on 09-15-2022 CO2 [Moles/Vol] 22.0 mmol/L 21.0-32.0 [facility] Urea nitrogen/Creatinine [Mass ratio] 39.7 mg/mg 10-20 [facility] - Hematology and Cell countsOrdered By: Portillo Trujillo on 09-15-2022 Erythrocyte distribution width (RBC) [Entitic vol] 53.1 fL 35.1-43.9 [facility] Erythrocyte distribution width (RBC) [Ratio] 15.5 % 11.6-14.6 [facility] MCH (RBC) [Entitic mass] 29.8 pg 27.0-32.0 [facility] MCHC Auto (RBC) [Mass/Vol]Or dered By: Portillo Trujillo on 09-15-2022 MCHC (RBC) [Mass/Vol] 32.2 g/dL 32-36 [facility] No Panel InformationOrdered By: Portillo Trujillo on 09-15-2022 Estimated GFR (MDRD) Amer 148 mL/min >60 [facility] Comment on above: GFR Calc Estimated GFR (MDRD) Non-Af Amer 122 mL/min >60 [facility] Comment on above: Non- GFR Calc Platelets bldOrdered By: Sekou Trujillo on 09-15-2022 Platelets (Bld) [#/Vol] 309 10*3/uL 150-450 [facility] Serum or plasma calcium nohelia urement (mass/volume)Ordered By: Portillo Trujillo on 09-15-2022 Calcium [Mass/Vol] 8.5 mg/dL 8.5-10.1 [facility] Serum or plasma creatinine m easurement (mass/volume)Ordered By: Portillo Trujillo on 09-15-2022 Creatinine [Mass/Vol] 0.53 mg/dL 0.55-1.02 [facility] Comment on above: The validity of the calculated GFR & GFRAA in patients over 70 years has not been determined. Clinical correlation is essential. Serum or plasma urea nitroge n measurement (mass/volume)Ordered By: Portillo Trujillo on 09-15-2022 Urea nitrogen [Mass/Vol] 21 mg/dL 7-18 [facility] Thin prep Papanicolaou smear with manual screeningOrdered By: Portillo Trujillo on 09-15-2022 Thin prep Papanicolaou smear with manual screening 9 5-15 [facility] - Microbiology an d Antimicrobial susceptibilityOrdered By: Dr. Mcintosh on 09-13-2022 Bacteria identified Cx Nom (Bld) No growth in 5 days. [facility] Absolute lymphocyte countOrd ered By: Dr. Hodge on 09-09-2022 Lymphocytes Auto (Unsp spec) [#/Vol] 1.76 10*3/uL 0.83-4.51 [facility] Basophil percentageOrdered B y: Dr. Hodge on 09-09-2022 Basophils/100 WBC (Bld) 0.1 % 0-1 [facility] Eosinophils/100 WBC (Bld) 0.0 % 0-5 [facility] Neutrophils (Bld) [#/Vol] 4.8 10*3/uL 2.0-7.7 [facility] Neutrophils/100 WBC (Bld) 60.2 % 47-70 [facility] WBC (Bld) [#/Vol] 8.0 10*3/uL 4.4-11.0 [facility] Basophil percentageOrdered B y: Dr. Houston on 09-09-2022 Bilirubin [Mass/Vol] 0.20 mg/dL 0.20-1.00 [facility] Comment on above: For patients on eltr ombopag therapy, use of Dimension [place] TBIL is not recommended. Chloride [Moles/Vol] 115 mmol/L 98-107 [facility] Glucose [Mass/Vol] 101 mg/dL 74-106 [facility] Comment on above: Fasting Glucose resu lt from 100 to 125 mg/dL suggests IMPAIRED HOMEOSTASIS per A.D.A. criteria. Potassium [Moles/Vol] 4.0 mmol/L 3.5-5.1 [facility] Protein [Mass/Vol] 6.4 g/dL 6.4-8.2 [facility] Sodium [Moles/Vol] 144 mmol/L 136-145 [facility] Blood erythrocytes count (nu mber/volume)Ordered By: Dr. Hodge on 09-09-2022 RBC (Bld) [#/Vol] 3.90 10*6/uL 4.2-5.4 [facility] Blood hemoglobin measurement (mass/volume)Ordered By: Dr. Hodge on 09-09-2022 Hemoglobin (Bld) [Mass/Vol] 11.3 g/dL 12.0-15.0 [facility] Blood lymphocytes/100 leukoc ytesOrdered By: Dr. Hodge on 09-09-2022 Lymphocytes/100 WBC (Bld) 21.9 % 19-41 [facility] Blood monocytes/100 leukocyt esOrdered By: Dr. Hodge on 09-09-2022 Monocytes/100 WBC (Bld) 17.2 % 0-10 [facility] Blood platelet mean volumeOr dered By: Dr. Hodge on 09-09-2022 Platelet mean volume (Bld) [Entitic vol] 10.2 fL 6.2-12.0 [facility] Determination of erythrocyte mean corpuscular volume (MCV)Ordered By: Dr. Hodge on 09-09-2022 MCV (RBC) [Entitic vol] 94.4 fL 81-99 [facility] Hematocrit Auto (Bld) [Volum e fraction]Ordered By: Dr. Hodge on 09-09-2022 Hematocrit (Bld) [Volume fraction] 36.8 % 37-47 [facility] - Chemistry and C hemistry - challengeOrdered By: Dr. Houston on 09-09-2022 ALP [Catalytic activity/Vol] 86 U/L 45-117 [facility] ALT [Catalytic activity/Vol] 44 U/L 13-56 [facility] CO2 [Moles/Vol] 25.0 mmol/L 21.0-32.0 [facility] Globulin (S) [Mass/Vol] 3.5 g/dL 2.2-4.2 [facility] Urea nitrogen/Creatinine [Mass ratio] 24.0 mg/mg 10-20 [facility] - Hematology and Cell countsOrdered By: Dr. Hodge on 09-09-2022 Erythrocyte distribution width (RBC) [Entitic vol] 52.6 fL 35.1-43.9 [facility] Erythrocyte distribution width (RBC) [Ratio] 15.2 % 11.6-14.6 [facility] Immature granulocytes/100 WBC (Bld) 0.600 % 0.0-0.9 [facility] Comment on above: IG% - Immature Granu locytes (promyelocytes, myelocytes and metamyelocytes) > 1% indicates that a LEFT SHIFT is Present. MCH (RBC) [Entitic mass] 29.0 pg 27.0-32.0 [facility] Nucleated RBC/100 WBC (Bld) [Ratio] 0 % 0-5 [facility] MCHC Auto (RBC) [Mass/Vol]Or dered By: Dr. Hodge on 09-09-2022 MCHC (RBC) [Mass/Vol] 30.7 g/dL 32-36 [facility] No Panel InformationOrdered By: Dr. Houston on 09-09-2022 Estimated Creatinine Clearance Calc 43.18 ml/min [facility] Estimated GFR (MDRD) Amer 122 mL/min >60 [facility] Comment on above: GFR Calc Estimated GFR (MDRD) Non-Af Amer 101 mL/min >60 [facility] Comment on above: Non- GFR Calc Platelets bldOrdered By: Dr. Hodge on 09-09-2022 Platelets (Bld) [#/Vol] 223 10*3/uL 150-450 [facility] Serum or plasma albumin nohelia urement (mass/volume)Ordered By: Dr. Houston on 09-09-2022 Albumin [Mass/Vol] 2.9 g/dL 3.2-5.0 [facility] Serum or plasma albumin/glob ulin mass ratioOrdered By: Dr. Houston on 09-09-2022 Albumin/Globulin [Mass ratio] 0.8 {ratio} 0.9-2.4 [facility] Serum or plasma calcium nohelia urement (mass/volume)Ordered By: Dr. Houston on 09-09-2022 Calcium [Mass/Vol] 9.1 mg/dL 8.5-10.1 [facility] Serum or plasma creatinine m easurement (mass/volume)Ordered By: Dr. Houston on 09-09-2022 Creatinine [Mass/Vol] 0.62 mg/dL 0.55-1.02 [facility] Comment on above: The validity of the calculated GFR & GFRAA in patients over 70 years has not been determined. Clinical correlation is essential. Serum or plasma urea nitroge n measurement (mass/volume)Ordered By: Dr. Houston on 09-09-2022 Urea nitrogen [Mass/Vol] 15 mg/dL 7-18 [facility] Thin prep Papanicolaou smear with manual screeningOrdered By: Dr. Houston on 09-09-2022 Thin prep Papanicolaou smear with manual screening 24 U/L 15-37 [facility] Thin prep Papanicolaou smear with manual screening 4 5-15 [facility] Absolute lymphocyte counton 09-08-2022 Lymphocytes Auto (Unsp spec) [#/Vol] 0.79 10*3/uL 0.83-4.51 [facility] Work Phone: Amorphous sediment detection in urine sediment by light microscopyOrdered By: Dr. Mcintosh on 09-08-2022 Amorphous sediment LM Ql (Urine sed) 2+ [facility] Basophil percentageOrdered B y: Dr. Mcintosh on 09-08-2022 Basophil percentage 10-25 SEEN /hpf 0-5 [facility] Lactate [Moles/Vol] 1.9 mmol/L 0.4-2.0 [facility] Basophil percentageon 2021 Basophils/100 WBC (Bld) 0.2 % 0-1 [facility] Work Phone: Bilirubin [Mass/Vol] 0.30 mg/dL 0.20-1.00 [facility] Work Phone: Comment on above: For patients on eltr ombopag therapy, use of [place] TBIL is not recommended. Chloride [Moles/Vol] 107 mmol/L 98-107 [facility] Work Phone: Eosinophils/100 WBC (Bld) 0.1 % 0-5 [facility] Work Phone: [phone] Glucose [Mass/Vol] 156 mg/dL 74-106 [facility] Work Phone: [phone] Comment on above: Fasting Glucose resu lt greater than or equal to 126 mg/dL suggests DIABETES MELLITUS per A.D.A. criteria. Neutrophils (Bld) [#/Vol] 7.0 10*3/uL 2.0-7.7 [facility] Work Phone: [phone] Neutrophils/100 WBC (Bld) 77.9 % 47-70 [facility] Work Phone: [phone] Potassium [Moles/Vol] 3.4 mmol/L 3.5-5.1 [facility] Work Phone: [phone] Protein [Mass/Vol] 6.6 g/dL 6.4-8.2 [facility] Work Phone: [phone] Sodium [Moles/Vol] 139 mmol/L 136-145 [facility] Work Phone: [phone] WBC (Bld) [#/Vol] 8.9 10*3/uL 4.4-11.0 [facility] Work Phone: Bilirubin Test strip Ql (U)O rdered By: Dr. Mcintosh on 09-08-2022 Bilirubin Ql (U) Negative Negative [facility] Blood erythrocytes count (nu mber/volume)on 09-08-2022 RBC (Bld) [#/Vol] 3.94 10*6/uL 4.2-5.4 [facility] Work Phone: [phone] Blood hemoglobin measurement (mass/volume)on 09-08-2022 Hemoglobin (Bld) [Mass/Vol] 11.4 g/dL 12.0-15.0 [facility] [facility]: Blood lymphocytes/100 leukoc yteson 09-08-2022 Lymphocytes/100 WBC (Bld) 8.8 % 19-41 [facility] Work Phone: Blood monocytes/100 leukocyt eson 09-08-2022 Monocytes/100 WBC (Bld) 12.3 % 0-10 [facility] Work Phone: Blood platelet mean volumeon 09-08-2022 Platelet mean volume (Bld) [Entitic vol] 10.0 fL 6.2-12.0 [facility] Work Phone: Determination of erythrocyte mean corpuscular volume (MCV)on 09-08-2022 MCV (RBC) [Entitic vol] 91.4 fL 81-99 [facility] Work Phone: Hematocrit Auto (Bld) [Volum e fraction]on 09-08-2022 Hematocrit (Bld) [Volume fraction] 36.0 % 37-47 [facility] Work Phone: INR in Blood by Coagulation assayOrdered By: Dr. Mcintosh on 09-08-2022 INR Coag (Bld) [Relative time] 1.1 {INR} [facility] Influenza virus A and B and SARS-CoV-2 (COVID-19) Ag panel - Upper respiratory specimOrdered By: Dr. Mcintosh on 09-08-2022 SARS-CoV-2 & FLU Antigen (Rapid) SARS-CoV-2 (COVID 19) [facility] Ketones Test strip Ql (U)Ord ered By: Dr. Mcintosh on 09-08-2022 Ketones Ql (U) Negative Negative [facility] Laboratory - Chemistry and C hemistry - challengeon 09-08-2022 ALP [Catalytic activity/Vol] 98 U/L 45-117 [facility] Work Phone: ALT [Catalytic activity/Vol] 52 U/L 13-56 [facility] Work Phone: CO2 [Moles/Vol] 25.0 mmol/L 21.0-32.0 [facility] Work Phone: [phone] Globulin (S) [Mass/Vol] 3.6 g/dL 2.2-4.2 [facility] Work Phone: Urea nitrogen/Creatinine [Mass ratio] 22.7 mg/mg 10- [facility] Work Phone: Laboratory - CoagulationOrde red By: Dr. Mcintosh on 09-08-2022 aPTT Coag (Bld) [Time] 30.5 s 24.1-36.2 [facility] PT Coag (PPP) [Time] 14.1 s 11.7-14.9 [facility] Laboratory - Hematology and Cell countson 09-08-2022 Erythrocyte distribution width (RBC) [Entitic vol] 50.0 fL 35.1-43.9 [facility] Work Phone: Erythrocyte distribution width (RBC) [Ratio] 14.8 % 11.6-14.6 [facility] Work Phone: Immature granulocytes/100 WBC (Bld) 0.700 % 0.0-0.9 [facility] Work Phone: Comment on above: IG% - Immature Granu locytes (promyelocytes, myelocytes and metamyelocytes) > 1% indicates that a LEFT SHIFT is Present. MCH (RBC) [Entitic mass] 28.9 pg 27.0-32.0 [facility] Work Phone: Nucleated RBC/100 WBC (Bld) [Ratio] 0 % 0-5 [facility] Work Phone: MCHC Auto (RBC) [Mass/Vol]on 09-08-2022 MCHC (RBC) [Mass/Vol] 31.7 g/dL 32-36 [facility] Work Phone: Mucus LM Ql (Urine sed)Order ed By: Dr. Mcintosh on 09-08-2022 Mucus Ql (Urine sed) 0 SEEN /hpf [facility] Nitrite Test strip Ql (U)Ord ered By: Dr. Mcintosh on 09-08-2022 Nitrite Ql (U) Positive Negative [facility] No Panel InformationOrdered By: Dr. Mcintosh on 09-08-2022 D-Dimer Quantitative (PE/DVT) 0.68 FEU/ug/m 0.27-0.49 [facility] Comment on above: D-Dimer ELEVATED (>0 .49): Additional studies and clinicalassessments are indicated to conclude diagnosis of:Deep Vein Thrombosis (DVT) or Pulmonary Embolism (PE)CRITICAL VALUE VERIFIED. CALLED TO JEANIE PHAM11/09/21 8180 Jase Santos.RESULTS READ BACK BY SAME . Troponin I High Sensitivity 12 pg/mL 3.0-54.0 [facility] Comment on above: Please Note: [place] t Units and Gender Specific Reference Ranges. For more information see Policy Stat Procedure [place] High Sensitivity Troponin (TNIH) and attachments. No Panel Informationon 09-08 Estimated Creatinine Clearance Calc 51.11 ml/min [facility] Work Phone: Estimated GFR (MDRD) Amer 93 mL/min >60 [facility] Work Phone: Comment on above: GFR Calc Estimated GFR (MDRD) Non-Af Amer 77 mL/min >60 [facility] Work Phone: Comment on above: Non- GFR Calc Platelets bldon 09-08-2022 Platelets (Bld) [#/Vol] 224 10*3/uL 150-450 [facility] Work Phone: Protein Test strip Ql (U)Ord ered By: Dr. Mcintosh on 09-08-2022 Protein Ql (U) Negative Negative [facility] Serum or plasma C reactive p rotein measurement (mass/volume)Ordered By: Dr. Houston on 09-08-2022 CRP [Mass/Vol] 13.30 mg/L 0.0-3.0 [facility] Comment on above: C-Reactive Protein ( CRP) provides useful information for thediagnosis, therapy and monitoring of inflammatory processesand associated diseases. For the evaluation of Relative Riskfor Cardiovascular Disease, a High Sensitivity CRP (HSCRP)should be ordered. Serum or plasma albumin nohelia urement (mass/volume)on 09-08-2022 Albumin [Mass/Vol] 3.0 g/dL 3.2-5.0 [facility] Work Phone: Serum or plasma albumin/glob ulin mass ratioon 09-08-2022 Albumin/Globulin [Mass ratio] 0.8 {ratio} 0.9-2.4 [facility] Work Phone: Serum or plasma calcium nohelia urement (mass/volume)on 09-08-2022 Calcium [Mass/Vol] 8.4 mg/dL 8.5-10.1 [facility] Work Phone: Serum or plasma creatinine m easurement (mass/volume)on 09-08-2022 Creatinine [Mass/Vol] 0.79 mg/dL 0.55-1.02 [facility] Work Phone: Comment on above: The validity of the calculated GFR & GFRAA in patients over 70 years has not been determined. Clinical correlation is essential. Serum or plasma urea nitroge n measurement (mass/volume)on 09-08-2022 Urea nitrogen [Mass/Vol] 18 mg/dL 7-18 [facility] Work Phone: Serum procalcitonin measurem entOrdered By: Dr. Hodge on 09-08-2022 Procalcitonin [Mass/Vol] 0.09 ng/mL 0.00-0.09 [facility] Comment on above: A procalcitonin (PCT ) [...] Ql (Urine sed) 0-5 SEEN /hpf 5-10 [facility] Thin prep Papanicolaou smear with manual screeningon 09-08-2022 Thin prep Papanicolaou smear with manual screening 31 U/L 15-37 [facility] Work Phone: Thin prep Papanicolaou smear with manual screening 7 5-15 [facility] Work Phone: Urine blood detectionOrdered By: Dr. Mcintosh on 09-08-2022 RBC Ql (U) 10 /ul Negative [facility] RBC Ql (U) 0-5 SEEN /hpf 0-5 [facility] Urine clarityOrdered By: Dr. Mcintosh on 09-08-2022 Clarity (U) Sl. Cloudy Clear [facility] Urine color determinationOrd ered By: Dr. Mcintosh on 09-08-2022 Color (U) Yellow Yellow [facility] Urine glucose detectionOrder ed By: Dr. Mcintosh on 09-08-2022 Glucose Ql (U) Normal mg/dl Normal [facility] Urine leukocyte esterase det ection by dipstickOrdered By: Dr. Mcintosh on 09-08-2022 Leukocyte esterase Test strip Ql (U) 100 /ul Negative [facility] Urine pHOrdered By: Dr. Rod georges on 09-08-2022 pH (U) 7.0 [pH] 5.0 - 8.0 [facility] Urine sediment bacteria coun t by microscopy (number/high power field)Ordered By: Dr. Mcintosh on 09-08-2022 Bacteria LM.HPF (Urine sed) [#/Area] 2 /[HPF] None Seen [facility] Urine specific gravity measu rementOrdered By: Dr. Mcintosh on 09-08-2022 Specific gravity (U) [Rel density] 1.005 1.002-1.030 [facility] Urobilinogen Auto test strip Ql (U)Ordered By: Dr. Mcintosh on 09-08-2022 Urobilinogen Ql (U) Normal mg/dl Normal [facility] Progress Noteon 09-02-2022 Progress Note Patient [...] current meds including baclofen, Flexeril, gabapentin and [place] 3. Neurogenic bladder Stable, continue [place] catheter irrigation cranberry pills Normal [facility] Basophil percentageOrdered B y: Portillo Trujillo on 08-04-2022 Chloride [Moles/Vol] 106 mmol/L 98-107 [facility] Glucose [Mass/Vol] 140 mg/dL 74-106 [facility] Comment on above: Fasting Glucose resu lt greater than or equal to 126 mg/dL suggests DIABETES MELLITUS per A.D.A. criteria. Potassium [Moles/Vol] 3.9 mmol/L 3.5-5.1 [facility] Sodium [Moles/Vol] 139 mmol/L 136-145 [facility] WBC (Bld) [#/Vol] 9.6 10*3/uL 4.4-11.0 [facility] Blood erythrocytes count (nu mber/volume)Ordered By: Portillo Trujillo on 08-04-2022 RBC (Bld) [#/Vol] 4.34 10*6/uL 4.2-5.4 [facility] Blood hemoglobin measurement (mass/volume)Ordered By: Portillo Trujillo on 08-04-2022 Hemoglobin (Bld) [Mass/Vol] 12.6 g/dL 12.0-15.0 [facility] Blood platelet mean volumeOr dered By: Portillo Trujillo on 08-04-2022 Platelet mean volume (Bld) [Entitic vol] 10.4 fL 6.2-12.0 [facility] Determination of erythrocyte mean corpuscular volume (MCV)Ordered By: Portillo Trujillo on 08-04-2022 MCV (RBC) [Entitic vol] 91.7 fL 81-99 [facility] Hematocrit Auto (Bld) [Volum e fraction]Ordered By: Portillo Trujillo on 08-04-2022 Hematocrit (Bld) [Volume fraction] 39.8 % 37-47 [facility] Laboratory - Chemistry and C hemistry - challengeOrdered By: Portillo Trujillo on 08-04-2022 CO2 [Moles/Vol] 25.0 mmol/L 21.0-32.0 [facility] Urea nitrogen/Creatinine [Mass ratio] 17.8 mg/mg 10-20 [facility] Laboratory - Hematology and Cell countsOrdered By: Portillo Trujillo on 08-04-2022 Erythrocyte distribution width (RBC) [Entitic vol] 48.4 fL 35.1-43.9 [facility] Erythrocyte distribution width (RBC) [Ratio] 14.3 % 11.6-14.6 [facility] MCH (RBC) [Entitic mass] 29.0 pg 27.0-32.0 [facility] MCHC Auto (RBC) [Mass/Vol]Or dered By: Portillo Trujillo on 08-04-2022 MCHC (RBC) [Mass/Vol] 31.7 g/dL 32-36 [facility] No Panel InformationOrdered By: Portillo Trujillo on 08-04-2022 Estimated GFR (MDRD) Amer 124 mL/min >60 [facility] Comment on above: GFR Calc Estimated GFR (MDRD) Non-Af Amer 102 mL/min >60 [facility] Comment on above: Non- GFR Calc Platelets bldOrdered By: Sekou Trujillo on 08-04-2022 Platelets (Bld) [#/Vol] 224 10*3/uL 150-450 [facility] Serum or plasma calcium nohelia urement (mass/volume)Ordered By: Portillo Trujillo on 08-04-2022 Calcium [Mass/Vol] 8.2 mg/dL 8.5-10.1 [facility] Serum or plasma creatinine m easurement (mass/volume)Ordered By: Portillo Trujillo on 08-04-2022 Creatinine [Mass/Vol] 0.62 mg/dL 0.55-1.02 [facility] Comment on above: The validity of the calculated GFR & GFRAA in patients over 70 years has not been determined. Clinical correlation is essential. Serum or plasma urea nitroge n measurement (mass/volume)Ordered By: Portillo Trujillo on 08-04-2022 Urea nitrogen [Mass/Vol] 11 mg/dL 7-18 [facility] Thin prep Papanicolaou smear with manual screeningOrdered By: Portillo Trujillo on 08-04-2022 Thin prep Papanicolaou smear with manual screening 8 5-15 [facility] Progress Noteon 07-29-2022 Progress Note See Scanned Progress Notes Normal [facility] Absolute lymphocyte counton 06-29-2022 Lymphocytes Auto (Unsp spec) [#/Vol] 2.37 10*3/uL 0.83-4.51 [facility] Work Phone: [phone] Basophil percentageon 2021 Basophils/100 WBC (Bld) 0.6 % 0-1 [facility] Work Phone: [phone] Cholesterol [Mass/Vol] 127 mg/dL <200 [facility] Work Phone: [phone] Comment on above: <200 mg/dL Desirable 200-240 mg/dL Borderline >240 mg/dL High Risk Eosinophils/100 WBC (Bld) 1.5 % 0-5 [facility] Work Phone: [phone] Neutrophils (Bld) [#/Vol] 5.1 10*3/uL 2.0-7.7 [facility] Work Phone: [phone] Neutrophils/100 WBC (Bld) 60.2 % 47-70 [facility] Work Phone: [phone] Triglyceride [Mass/Vol] 223 mg/dL <199 [facility] Work Phone: [phone] Comment on above: The drugs N-Acetylcy steine and Metamizole may falsely depress this assay.Serum Triglycerides Reference Interval Normal <150 mg/dL Borderline high 150 - 199 mg/dL High 200 - 499 mg/dL Very High > or = 500 mg/dL WBC (Bld) [#/Vol] 8.4 10*3/uL 4.4-11.0 [facility] Work Phone: [phone] Blood erythrocytes count (nu mber/volume)on 06-29-2022 RBC (Bld) [#/Vol] 3.89 10*6/uL 4.2-5.4 [facility] Work [facility]: [phone] Blood hemoglobin measurement (mass/volume)on 06-29-2022 Hemoglobin (Bld) [Mass/Vol] 11.5 g/dL 12.0-15.0 [facility] Work Phone: Blood lymphocytes/100 leukoc yteson 06-29-2022 Lymphocytes/100 WBC (Bld) 28.2 % 19-41 [facility] Work Phone: Blood monocytes/100 leukocyt eson 06-29-2022 Monocytes/100 WBC (Bld) 9.3 % 0-10 [facility] Work Phone: [phone] Blood platelet mean volumeon 06-29-2022 Platelet mean volume (Bld) [Entitic vol] 11.0 fL 6.2-12.0 [facility] Work Phone: [phone] Determination of erythrocyte mean corpuscular volume (MCV)on 06-29-2022 MCV (RBC) [Entitic vol] 94.3 fL 81-99 [facility] Work Phone: [phone] Hematocrit Auto (Bld) [Volum e fraction]on 06-29-2022 Hematocrit (Bld) [Volume fraction] 36.7 % 37-47 [facility] Work Phone: [phone] Laboratory - Hematology and Cell countson 06-29-2022 Erythrocyte distribution width (RBC) [Entitic vol] 51.4 fL 35.1-43.9 [facility] Work Phone: [phone] Erythrocyte distribution width (RBC) [Ratio] 14.7 % 11.6-14.6 [facility] Work Phone: [phone] Immature granulocytes/100 WBC (Bld) 0.200 % 0.0-0.9 [facility] Work Phone: [phone] Comment on above: IG% - Immature Granu locytes (promyelocytes, myelocytes and metamyelocytes) > 1% indicates that a LEFT SHIFT is Present. MCH (RBC) [Entitic mass] 29.6 pg 27.0-32.0 [facility] Work Phone: [phone] Nucleated RBC/100 WBC (Bld) [Ratio] 0 % 0-5 [facility] Work Phone: [phone] MCHC Auto (RBC) [Mass/Vol]on 06-29-2022 MCHC (RBC) [Mass/Vol] 31.3 g/dL 32-36 [facility] Work Phone: Platelets bldon 06-29-2022 Platelets (Bld) [#/Vol] 232 10*3/uL 150-450 [facility] Work Phone: [phone] Serum or plasma cholesterol in HDL measurement (mass/volume)on 06-29-2022 Cholesterol in HDL [Mass/Vol] 33 mg/dL >40 [facility] Work Phone: [phone] Comment on above: The drugs N-Acetylcy steine and Metamizole may falsely depress this assay. Reference Range HDL <40 mg/dL Low HDL Cholesterol HDL >or= 60 mg/dL High HDL Cholesterol Serum or plasma cholesterol in VLDL measurement (mass/volume)on 06-29-2022 Cholesterol in VLDL [Mass/Vol] 45 mg/dL 5-40 [facility] Work Phone: [phone] Serum or plasma low density lipoprotein (LDL) cholesterol measurement (mass/volume)on 06-29-2022 Cholesterol in LDL [Mass/Vol] 49 mg/dL 0-130 [facility] Work Phone: [phone] Amorphous sediment detection in urine sediment by light microscopyon 06-26-2022 Amorphous sediment LM Ql (Urine sed) 2+ [facility] Work Phone: [phone] Basophil percentageon 2021 Basophil percentage 0-5 SEEN /hpf 0-5 [facility] Work Phone: [phone] Bilirubin Test strip Ql (U)o n 06-26-2022 Bilirubin Ql (U) Negative Negative [facility] Work Phone: [phone] Calcium oxalate crystals det ection in urine sediment by light microscopyon 06-26-2022 Calcium oxalate crystals LM Ql (Urine sed) RARE /hpf [facility] Work Phone: Ketones Test strip Ql (U)on 06-26-2022 Ketones Ql (U) Negative Negative [facility] Work Phone: Mucus LM Ql (Urine sed)on Mucus Ql (Urine sed) 0 SEEN /hpf [facility] Work Phone: Nitrite Test strip Ql (U)on 06-26-2022 Nitrite Ql (U) Positive Negative [facility] Work Phone: [phone] Protein Test strip Ql (U)on 06-26-2022 Protein Ql (U) Negative Negative [facility] Work Phone: Squamous epithelial cells de tection in urine sediment by light microscopyon 06-26-2022 Epithelial cells.squamous LM Ql (Urine sed) 0-5 SEEN /hpf 5-10 [facility] Work Phone: Urine blood detectionon RBC Ql (U) Negative Negative [facility] Work Phone: RBC Ql (U) 0 SEEN /hpf 0-5 [facility] Work Phone: Urine clarityon 06-26-2022 Clarity (U) Sl. Cloudy Clear [facility] Work Phone: Urine color determinationon 06-26-2022 Color (U) Yellow Yellow [facility] Work Phone: Urine glucose detectionon Glucose Ql (U) Normal mg/dl Normal [facility] Work Phone: Urine leukocyte esterase det ection by dipstickon 06-26-2022 Leukocyte esterase Test strip Ql (U) 500 /ul Negative [facility] Work Phone: [phone] Urine pHon 06-26-2022 pH (U) 8.0 [pH] 5.0 - 8.0 [facility] Work Phone: Urine sediment bacteria coun t by microscopy (number/high power field)on 06-26-2022 Bacteria LM.HPF (Urine sed) [#/Area] 0 /[HPF] None Seen [facility] Work Phone: Urine specific gravity measu rementon 06-26-2022 Specific gravity (U) [Rel density] 1.015 1.002-1.030 [facility] Work Phone: Urobilinogen Auto test strip Ql (U)on 06-26-2022 Urobilinogen Ql (U) Normal mg/dl Normal [facility] Work Phone: CONFIRM BLOOD TYPEon 022 ABO A [facility] Rh Nom (Bld) Positive [facility] Absolute lymphocyte counton 04-06-2022 Lymphocytes Auto (Unsp spec) [#/Vol] 2.67 10*3/uL 0.83-4.51 [facility] Work Phone: Basophil percentageon 2021 Basophils/100 WBC (Bld) 0.5 % 0-1 [facility] Work Phone: Cholesterol [Mass/Vol] 157 mg/dL <200 [facility] Work Phone: Comment on above: <200 mg/dL Desirable 200-240 mg/dL Borderline >240 mg/dL High Risk Eosinophils/100 WBC (Bld) 1.7 % 0-5 [facility] Work Phone: [phone] Neutrophils (Bld) [#/Vol] 3.8 10*3/uL 2.0-7.7 [facility] Work Phone: Neutrophils/100 WBC (Bld) 51.2 % 47-70 [facility] Work Phone: Triglyceride [Mass/Vol] 266 mg/dL <199 [facility] Work Phone: Comment on above: The drugs N-Acetylcy steine and Metamizole may falsely depress this assay.Serum Triglycerides Reference Interval Normal <150 mg/dL Borderline high 150 - 199 mg/dL High 200 - 499 mg/dL Very High > or = 500 mg/dL WBC (Bld) [#/Vol] 7.5 10*3/uL 4.4-11.0 [facility] Work Phone: Blood erythrocytes count (nu mber/volume)on 04-06-2022 RBC (Bld) [#/Vol] 4.08 10*6/uL 4.2-5.4 [facility] Work Phone: [phone] Blood hemoglobin measurement (mass/volume)on 04-06-2022 Hemoglobin (Bld) [Mass/Vol] 12.0 g/dL 12.0-15.0 [facility] Work Phone: Blood lymphocytes/100 leukoc yteson 04-06-2022 Lymphocytes/100 WBC (Bld) 35.6 % 19-41 [facility] Work Phone: Blood monocytes/100 leukocyt eson 04-06-2022 Monocytes/100 WBC (Bld) 10.5 % 0-10 [facility] Work Phone: [phone] Blood platelet mean volumeon 04-06-2022 Platelet mean volume (Bld) [Entitic vol] 11.0 fL 6.2-12.0 [facility] Work Phone: [phone] Determination of erythrocyte mean corpuscular volume (MCV)on 04-06-2022 MCV (RBC) [Entitic vol] 93.9 fL 81-99 [facility] Work Phone: [phone] Hematocrit Auto (Bld) [Volum e fraction]on 04-06-2022 Hematocrit (Bld) [Volume fraction] 38.3 % 37-47 [facility] Work Phone: [phone] Laboratory - Hematology and Cell countson 04-06-2022 Erythrocyte distribution width (RBC) [Entitic vol] 51.8 fL 35.1-43.9 [facility] Work Phone: [phone] Erythrocyte distribution width (RBC) [Ratio] 14.9 % 11.6-14.6 [facility] Work Phone: [phone] Immature granulocytes/100 WBC (Bld) 0.500 % 0.0-0.9 [facility] Work Phone: [phone] Comment on above: IG% - Immature Granu locytes (promyelocytes, myelocytes and metamyelocytes) > 1% indicates that a LEFT SHIFT is Present. MCH (RBC) [Entitic mass] 29.4 pg 27.0-32.0 [facility] Work Phone: [phone] Nucleated RBC/100 WBC (Bld) [Ratio] 0 % 0-5 [facility] Work Phone: [phone] MCHC Auto (RBC) [Mass/Vol]on 04-06-2022 MCHC (RBC) [Mass/Vol] 31.3 g/dL 32-36 [facility] Work Phone: Platelets bldon 04-06-2022 Platelets (Bld) [#/Vol] 247 10*3/uL 150-450 [facility] Work Phone: [phone] Serum or plasma cholesterol in HDL measurement (mass/volume)on 04-06-2022 Cholesterol in HDL [Mass/Vol] 35 mg/dL >40 [facility] Work Phone: Comment on above: The drugs N-Acetylcy steine and Metamizole may falsely depress this assay. Reference Range HDL <40 mg/dL Low HDL Cholesterol HDL >or= 60 mg/dL High HDL Cholesterol Serum or plasma cholesterol in VLDL measurement (mass/volume)on 04-06-2022 Cholesterol in VLDL [Mass/Vol] 53 mg/dL 5-40 [facility] Work Phone: [phone] Serum or plasma low density lipoprotein (LDL) cholesterol measurement (mass/volume)on 04-06-2022 Cholesterol in LDL [Mass/Vol] 69 mg/dL 0-130 [facility] Work Phone: [phone] Laboratory - Chemistry and C hemistry - challengeon 04-01-2022 ALT [Catalytic activity/Vol] 47 U/L 13-56 [facility] Work Phone: [phone] Thin prep Papanicolaou smear with manual screeningon 04-01-2022 Thin prep Papanicolaou smear with manual screening 24 U/L 15-37 [facility] Work Phone: [phone] Absolute lymphocyte counton 02-23-2022 Lymphocytes Auto (Unsp spec) [#/Vol] 2.40 10*3/uL 0.83-4.51 [facility] Work Phone: Basophil percentageon 2021 Basophil percentage 50-100 SEEN /hpf 0-5 [facility] Work Phone: Basophils/100 WBC (Bld) 0.6 % 0-1 [facility] Work Phone: Eosinophils/100 WBC (Bld) 1.9 % 0-5 [facility] Work Phone: Neutrophils (Bld) [#/Vol] 3.9 10*3/uL 2.0-7.7 [facility] Work Phone: Neutrophils/100 WBC (Bld) 54.6 % 47-70 [facility] Work Phone: WBC (Bld) [#/Vol] 7.2 10*3/uL 4.4-11.0 [facility] Work Phone: Bilirubin Test strip Ql (U)o n 02-23-2022 Bilirubin Ql (U) Negative Negative [facility] Work Phone: Blood erythrocytes count (nu mber/volume)on 02-23-2022 RBC (Bld) [#/Vol] 3.74 10*6/uL 4.2-5.4 [facility] Work Phone: Blood hemoglobin measurement (mass/volume)on 02-23-2022 Hemoglobin (Bld) [Mass/Vol] 11.1 g/dL 12.0-15.0 [facility] Work Phone: Blood lymphocytes/100 leukoc yteson 02-23-2022 Lymphocytes/100 WBC (Bld) 33.2 % 19-41 [facility] Work Phone: Blood monocytes/100 leukocyt eson 02-23-2022 Monocytes/100 WBC (Bld) 9.1 % 0-10 [facility] Work Phone: Blood platelet mean volumeon 02-23-2022 Platelet mean volume (Bld) [Entitic vol] 10.8 fL 6.2-12.0 [facility] Work Phone: Determination of erythrocyte mean corpuscular volume (MCV)on 02-23-2022 MCV (RBC) [Entitic vol] 94.9 fL 81-99 [facility] Work Phone: Hematocrit Auto (Bld) [Volum e fraction]on 02-23-2022 Hematocrit (Bld) [Volume fraction] 35.5 % 37-47 [facility] Work Phone: Ketones Test strip Ql (U)on 02-23-2022 Ketones Ql (U) Negative Negative [facility] Work Phone: Laboratory - Hematology and Cell countson 02-23-2022 Erythrocyte distribution width (RBC) [Entitic vol] 52.6 fL 35.1-43.9 [facility] Work Phone: Erythrocyte distribution width (RBC) [Ratio] 15.0 % 11.6-14.6 [facility] Work Phone: Immature granulocytes/100 WBC (Bld) 0.600 % 0.0-0.9 [facility] Work Phone: Comment on above: IG% - Immature Granu locytes (promyelocytes, myelocytes and metamyelocytes) > 1% indicates that a LEFT SHIFT is Present. MCH (RBC) [Entitic mass] 29.7 pg 27.0-32.0 [facility] Work Phone: Nucleated RBC/100 WBC (Bld) [Ratio] 0 % 0-5 [facility] Work Phone: MCHC Auto (RBC) [Mass/Vol]on 02-23-2022 MCHC (RBC) [Mass/Vol] 31.3 g/dL 32-36 [facility] Work Phone: [phone] Mucus LM Ql (Urine sed)on Mucus Ql (Urine sed) 0 SEEN /hpf [facility] Work Phone: [phone] Nitrite Test strip Ql (U)on 02-23-2022 Nitrite Ql (U) Positive Negative [facility] Work Phone: [phone] Platelets bldon 02-23-2022 Platelets (Bld) [#/Vol] 238 10*3/uL 150-450 [facility] Work Phone: [phone] Protein Test strip Ql (U)on 02-23-2022 Protein Ql (U) 30 mg/dl Negative [facility] Work Phone: [phone] Squamous epithelial cells de tection in urine sediment by light microscopyon 02-23-2022 Epithelial cells.squamous LM Ql (Urine sed) 0 SEEN /hpf 5-10 [facility] Work Phone: [phone] Urine blood detectionon RBC Ql (U) 150 /ul Negative [facility] Work Phone: RBC Ql (U) 0 SEEN /hpf 0-5 [facility] Work Phone: [phone] Urine clarityon 02-23-2022 Clarity (U) Cloudy Clear [facility] Work Phone: [phone] Urine color determinationon 02-23-2022 Color (U) Yellow Yellow [facility] Work Phone: [phone] Urine glucose detectionon Glucose Ql (U) Normal mg/dl Normal [facility] Work Phone: [phone] Urine leukocyte esterase det ection by dipstickon 02-23-2022 Leukocyte esterase Test strip Ql (U) 500 /ul Negative [facility] Work Phone: [phone] Urine pHon 02-23-2022 pH (U) 6.5 [pH] 5.0 - 8.0 [facility] Work Phone: [phone] Urine sediment bacteria coun t by microscopy (number/high power field)on 02-23-2022 Bacteria LM.HPF (Urine sed) [#/Area] 4 /[HPF] None Seen [facility] Work Phone: [phone] Urine specific gravity measu rementon 02-23-2022 Specific gravity (U) [Rel density] 1.010 1.002-1.030 [facility] Work Phone: [phone] Urobilinogen Auto test strip Ql (U)on 02-23-2022 Urobilinogen Ql (U) Normal mg/dl Normal [facility] Work Phone: Basophil percentageon 2021 Bilirubin [Mass/Vol] 0.30 mg/dL 0.20-1.00 [facility] Work Phone: Comment on above: For patients on eltr ombopag therapy, use of Dimension [place] TBIL is not recommended. Chloride [Moles/Vol] 109 mmol/L 98-107 [facility] Work Phone: Glucose [Mass/Vol] 107 mg/dL 74-106 [facility] Work Phone: Comment on above: Fasting Glucose resu lt from 100 to 125 mg/dL suggests IMPAIRED HOMEOSTASIS per A.D.A. criteria. Potassium [Moles/Vol] 4.0 mmol/L 3.5-5.1 [facility] Work Phone: Protein [Mass/Vol] 6.5 g/dL 6.4-8.2 [facility] Work Phone: Sodium [Moles/Vol] 143 mmol/L 136-145 [facility] Work Phone: Laboratory - Chemistry and C hemistry - challengeon 02-18-2022 ALP [Catalytic activity/Vol] 86 U/L 45-117 [facility] Work Phone: ALT [Catalytic activity/Vol] 41 U/L 13-56 [facility] Work Phone: CO2 [Moles/Vol] 25.0 mmol/L 21.0-32.0 [facility] Work Phone: Globulin (S) [Mass/Vol] 3.3 g/dL 2.2-4.2 [facility] Work Phone: Urea nitrogen/Creatinine [Mass ratio] 21.8 mg/mg 10-20 [facility] Work Phone: No Panel Informationon 02-18 Estimated GFR (MDRD) Amer 119 mL/min >60 [facility] Work Phone: Comment on above: GFR Calc Estimated GFR (MDRD) Non-Af Amer 98 mL/min >60 [facility] Work Phone: Comment on above: Non- GFR Calc Serum or plasma albumin nohelia urement (mass/volume)on 02-18-2022 Albumin [Mass/Vol] 3.2 g/dL 3.2-5.0 [facility] Work Phone: Serum or plasma albumin/glob ulin mass ratioon 02-18-2022 Albumin/Globulin [Mass ratio] 1.0 {ratio} 0.9-2.4 [facility] Work Phone: Serum or plasma calcium nohelia urement (mass/volume)on 02-18-2022 Calcium [Mass/Vol] 8.8 mg/dL 8.5-10.1 [facility] Work Phone: Serum or plasma creatinine m easurement (mass/volume)on 02-18-2022 Creatinine [Mass/Vol] 0.64 mg/dL 0.55-1.02 [facility] Work Phone: Comment on above: The validity of the calculated GFR & GFRAA in patients over 70 years has not been determined. Clinical correlation is essential. Serum or plasma urea nitroge n measurement (mass/volume)on 02-18-2022 Urea nitrogen [Mass/Vol] 14 mg/dL 7-18 [facility] Work Phone: Thin prep Papanicolaou smear with manual screeningon 02-18-2022 Thin prep Papanicolaou smear with manual screening 21 U/L 15-37 [facility] Work Phone: Thin prep Papanicolaou smear with manual screening 9 5-15 [facility] Work Phone: Absolute lymphocyte counton 01-12-2022 Lymphocytes Auto (Unsp spec) [#/Vol] 2.71 10*3/uL 0.83-4.51 [facility] Work Phone: Basophil percentageon 2021 Basophils/100 WBC (Bld) 0.9 % 0-1 [facility] Work Phone: Cholesterol [Mass/Vol] 130 mg/dL <200 [facility] Work Phone: Comment on above: <200 mg/dL Desirable 200-240 mg/dL Borderline >240 mg/dL High Risk Eosinophils/100 WBC (Bld) 4.0 % 0-5 [facility] Work Phone: [phone] Neutrophils (Bld) [#/Vol] 2.9 10*3/uL 2.0-7.7 [facility] Work Phone: [phone] Neutrophils/100 WBC (Bld) 44.9 % 47-70 [facility] Work Phone: Triglyceride [Mass/Vol] 222 mg/dL <199 [facility] Work Phone: Comment on above: The drugs N-Acetylcy steine and Metamizole may falsely depress this assay.Serum Triglycerides Reference Interval Normal <150 mg/dL Borderline high 150 - 199 mg/dL High 200 - 499 mg/dL Very High > or = 500 mg/dL WBC (Bld) [#/Vol] 6.5 10*3/uL 4.4-11.0 [facility] Work Phone: Blood erythrocytes count (nu mber/volume)on 01-12-2022 RBC (Bld) [#/Vol] 3.71 10*6/uL 4.2-5.4 [facility] Work Phone: [phone] Blood hemoglobin measurement (mass/volume)on 01-12-2022 Hemoglobin (Bld) [Mass/Vol] 10.9 g/dL 12.0-15.0 [facility] Work Phone: Blood lymphocytes/100 leukoc yteson 01-12-2022 Lymphocytes/100 WBC (Bld) 41.7 % 19-41 [facility] Work Phone: Blood monocytes/100 leukocyt eson 01-12-2022 Monocytes/100 WBC (Bld) 8.2 % 0-10 [facility] Work Phone: [phone] Blood platelet mean volumeon 01-12-2022 Platelet mean volume (Bld) [Entitic vol] 10.7 fL 6.2-12.0 [facility] Work Phone: [phone] Determination of erythrocyte mean corpuscular volume (MCV)on 01-12-2022 MCV (RBC) [Entitic vol] 94.9 fL 81-99 [facility] Work Phone: [phone] Hematocrit Auto (Bld) [Volum e fraction]on 01-12-2022 Hematocrit (Bld) [Volume fraction] 35.2 % 37-47 [facility] Work Phone: [phone] Laboratory - Hematology and Cell countson 01-12-2022 Erythrocyte distribution width (RBC) [Entitic vol] 51.7 fL 35.1-43.9 [facility] Work Phone: [phone] Erythrocyte distribution width (RBC) [Ratio] 14.9 % 11.6-14.6 [facility] Work Phone: [phone] Immature granulocytes/100 WBC (Bld) 0.300 % 0.0-0.9 [facility] Work Phone: [phone] Comment on above: IG% - Immature Granu locytes (promyelocytes, myelocytes and metamyelocytes) > 1% indicates that a LEFT SHIFT is Present. MCH (RBC) [Entitic mass] 29.4 pg 27.0-32.0 [facility] Work Phone: [phone] Nucleated RBC/100 WBC (Bld) [Ratio] 0 % 0-5 [facility] Work Phone: [phone] MCHC Auto (RBC) [Mass/Vol]on 01-12-2022 MCHC (RBC) [Mass/Vol] 31.0 g/dL 32-36 [facility] Work Phone: [phone] Platelets bldon 01-12-2022 Platelets (Bld) [#/Vol] 214 10*3/uL 150-450 [facility] Work Phone: [phone] Serum or plasma cholesterol in HDL measurement (mass/volume)on 01-12-2022 Cholesterol in HDL [Mass/Vol] 33 mg/dL >40 [facility] Work Phone: Comment on above: The drugs N-Acetylcy steine and Metamizole may falsely depress this assay. Reference Range HDL <40 mg/dL Low HDL Cholesterol HDL >or= 60 mg/dL High HDL Cholesterol Serum or plasma cholesterol in VLDL measurement (mass/volume)on 01-12-2022 Cholesterol in VLDL [Mass/Vol] 44 mg/dL 5-40 [facility] Work Phone: Serum or plasma low density lipoprotein (LDL) cholesterol measurement (mass/volume)on 01-12-2022 Cholesterol in LDL [Mass/Vol] 53 mg/dL 0-130 [facility] Work Phone: Absolute lymphocyte counton 12-31-2021 Lymphocytes Auto (Unsp spec) [#/Vol] 2.15 10*3/uL 0.83-4.51 [facility] Work Phone: Basophil percentageon 2021 Basophils/100 WBC (Bld) 0.6 % 0-1 [facility] Work Phone: Bilirubin [Mass/Vol] 0.30 mg/dL 0.20-1.00 [facility] Work Phone: Comment on above: For patients on eltr ombopag therapy, use of [place] TBIL is not recommended. Chloride [Moles/Vol] 112 mmol/L 98-107 [facility] Work Phone: Eosinophils/100 WBC (Bld) 2.1 % 0-5 [facility] Work Phone: Glucose [Mass/Vol] 107 mg/dL 74-106 [facility] Work Phone: Comment on above: Fasting Glucose resu lt from 100 to 125 mg/dL suggests IMPAIRED HOMEOSTASIS per A.D.A. criteria. Neutrophils (Bld) [#/Vol] 3.5 10*3/uL 2.0-7.7 [facility] Work Phone: Neutrophils/100 WBC (Bld) 55.0 % 47-70 [facility] Work Phone: Potassium [Moles/Vol] 3.8 mmol/L 3.5-5.1 [facility] Work Phone: Protein [Mass/Vol] 5.9 g/dL 6.4-8.2 [facility] Work Phone: Sodium [Moles/Vol] 144 mmol/L 136-145 [facility] Work Phone: WBC (Bld) [#/Vol] 6.3 10*3/uL 4.4-11.0 [facility] Work Phone: Blood erythrocytes count (nu mber/volume)on 12-31-2021 RBC (Bld) [#/Vol] 3.72 10*6/uL 4.2-5.4 [facility] Work Phone: [phone] Blood hemoglobin measurement (mass/volume)on 12-31-2021 Hemoglobin (Bld) [Mass/Vol] 11.0 g/dL 12.0-15.0 [facility] Work Phone: Blood lymphocytes/100 leukoc yteson 12-31-2021 Lymphocytes/100 WBC (Bld) 34.1 % 19-41 [facility] Work Phone: Blood monocytes/100 leukocyt eson 12-31-2021 Monocytes/100 WBC (Bld) 7.9 % 0-10 [facility] Work Phone: Blood platelet mean volumeon 12-31-2021 Platelet mean volume (Bld) [Entitic vol] 10.5 fL 6.2-12.0 [facility] Work Phone: Determination of erythrocyte mean corpuscular volume (MCV)on 12-31-2021 MCV (RBC) [Entitic vol] 92.5 fL 81-99 [facility] Work Phone: Hematocrit Auto (Bld) [Volum e fraction]on 12-31-2021 Hematocrit (Bld) [Volume fraction] 34.4 % 37-47 [facility] Work Phone: [phone] Laboratory - Chemistry and C hemistry - challengeon 12-31-2021 ALP [Catalytic activity/Vol] 80 U/L 45-117 [facility] Work Phone: ALT [Catalytic activity/Vol] 33 U/L 13-56 [facility] Work Phone: CO2 [Moles/Vol] 26.0 mmol/L 21.0-32.0 [facility] Work Phone: [phone] Globulin (S) [Mass/Vol] 2.9 g/dL 2.2-4.2 [facility] Work Phone: [phone] Urea nitrogen/Creatinine [Mass ratio] 23.2 mg/mg 10-20 [facility] Work Phone: Laboratory - Hematology and Cell countson 12-31-2021 Erythrocyte distribution width (RBC) [Entitic vol] 49.7 fL 35.1-43.9 [facility] Work Phone: [phone] Erythrocyte distribution width (RBC) [Ratio] 14.7 % 11.6-14.6 [facility] Work Phone: [phone] Immature granulocytes/100 WBC (Bld) 0.300 % 0.0-0.9 [facility] Work Phone: [phone] Comment on above: IG% - Immature Granu locytes (promyelocytes, myelocytes and metamyelocytes) > 1% indicates that a LEFT SHIFT is Present. MCH (RBC) [Entitic mass] 29.6 pg 27.0-32.0 [facility] Work Phone: [phone] Nucleated RBC/100 WBC (Bld) [Ratio] 0 % 0-5 [facility] Work Phone: [phone] MCHC Auto (RBC) [Mass/Vol]on 12-31-2021 MCHC (RBC) [Mass/Vol] 32.0 g/dL 32-36 [facility] Work Phone: [phone] No Panel Informationon 12-31 CA 125 Antigen 19.0 U/mL 0.0-38.1 [facility] Work Phone: [phone] Comment on above: [facility] El ectrochemiluminescence Immunoassay(ECLIA)Values obtained with different assay methods or kits cannotbe used interchangeably. Results cannot be interpreted asabsolute evidence of the presence or absence of malignantdisease.Performed at: [employer] [id number] Director: Boston Bradford PhD, Phone: [phone] Estimated GFR (MDRD) Amer 128 mL/min >60 [facility] Work Phone: Comment on above: GFR Calc Estimated GFR (MDRD) Non-Af Amer 105 mL/min >60 [facility] Work Phone: Comment on above: Non- GFR Calc Platelets bldon 12-31-2021 Platelets (Bld) [#/Vol] 229 10*3/uL 150-450 [facility] Work Phone: Serum or plasma albumin nohelia urement (mass/volume)on 12-31-2021 Albumin [Mass/Vol] 3.0 g/dL 3.2-5.0 [facility] Work Phone: Serum or plasma albumin/glob ulin mass ratioon 12-31-2021 Albumin/Globulin [Mass ratio] 1.0 {ratio} 0.9-2.4 [facility] Work Phone: Serum or plasma calcium nohelia urement (mass/volume)on 12-31-2021 Calcium [Mass/Vol] 8.3 mg/dL 8.5-10.1 [facility] Work Phone: Serum or plasma creatinine m easurement (mass/volume)on 12-31-2021 Creatinine [Mass/Vol] 0.60 mg/dL 0.55-1.02 [facility] Work Phone: Comment on above: The validity of the calculated GFR & GFRAA in patients over 70 years has not been determined. Clinical correlation is essential. Serum or plasma urea nitroge n measurement (mass/volume)on 12-31-2021 Urea nitrogen [Mass/Vol] 14 mg/dL 7-18 [facility] Work Phone: Thin prep Papanicolaou smear with manual screeningon 12-31-2021 Thin prep Papanicolaou smear with manual screening 17 U/L 15-37 [facility] Work Phone: Thin prep Papanicolaou smear with manual screening 6 5-15 [facility] Work Phone: CREATININE,POC(AK)on 022 Creatinine [Mass/Vol] 0.60 mg/dL 0.60 - 1.30 mg/dL [facility] GFR/1.73 sq M.predicted among non-blacks MDRD (S/P/Bld) [Vol rate/Area] mL/min/{1.73_m2} [facility] Absolute lymphocyte counton 10-20-2021 Lymphocytes Auto (Unsp spec) [#/Vol] 2.60 10*3/uL 0.83-4.51 [facility] Work Phone: [phone] Basophil percentageon 2021 Basophils/100 WBC (Bld) 0.8 % 0-1 [facility] Work Phone: [phone] Cholesterol [Mass/Vol] 120 mg/dL <200 [facility] Work Phone: [phone] Comment on above: <200 mg/dL Desirable 200-240 mg/dL Borderline >240 mg/dL High Risk Eosinophils/100 WBC (Bld) 1.7 % 0-5 [facility] Work Phone: [phone] Neutrophils (Bld) [#/Vol] 4.0 10*3/uL 2.0-7.7 [facility] Work Phone: [phone] Neutrophils/100 WBC (Bld) 52.3 % 47-70 [facility] Work Phone: [phone] Triglyceride [Mass/Vol] 144 mg/dL [facility] Work Phone: [phone] Comment on above: The drugs N-Acetylcy steine and Metamizole may falsely depress this assay.Serum Triglycerides Reference Interval Normal <150 mg/dL Borderline high 150 - 199 mg/dL High 200 - 499 mg/dL Very High > or = 500 mg/dL WBC (Bld) [#/Vol] 7.7 10*3/uL 4.4-11.0 [facility] Work Phone: Blood erythrocytes count (nu mber/volume)on 10-20-2021 RBC (Bld) [#/Vol] 3.96 10*6/uL 4.2-5.4 [facility] Work Phone: [phone] Blood hemoglobin measurement (mass/volume)on 10-20-2021 Hemoglobin (Bld) [Mass/Vol] 11.5 g/dL 12.0-15.0 [facility] Work Phone: Blood lymphocytes/100 leukoc yteson 10-20-2021 Lymphocytes/100 WBC (Bld) 33.7 % 19-41 [facility] Work Phone: Blood monocytes/100 leukocyt eson 10-20-2021 Monocytes/100 WBC (Bld) 11.0 % 0-10 [facility] Work Phone: Blood platelet mean volumeon 10-20-2021 Platelet mean volume (Bld) [Entitic vol] 10.6 fL 6.2-12.0 [facility] Work Phone: [phone] Determination of erythrocyte mean corpuscular volume (MCV)on 10-20-2021 MCV (RBC) [Entitic vol] 94.9 fL 81-99 [facility] Work Phone: Hematocrit Auto (Bld) [Volum e fraction]on 10-20-2021 Hematocrit (Bld) [Volume fraction] 37.6 % 37-47 [facility] Work Phone: Laboratory - Hematology and Cell countson 10-20-2021 Erythrocyte distribution width (RBC) [Entitic vol] 49.6 fL 35.1-43.9 [facility] Work Phone: Erythrocyte distribution width (RBC) [Ratio] 14.1 % 11.6-14.6 [facility] Work Phone: [phone] Immature granulocytes/100 WBC (Bld) 0.500 % 0.0-0.9 [facility] Work Phone: [phone] Comment on above: IG% - Immature Granu locytes (promyelocytes, myelocytes and metamyelocytes) > 1% indicates that a LEFT SHIFT is Present. MCH (RBC) [Entitic mass] 29.0 pg 27.0-32.0 [facility] Work Phone: Nucleated RBC/100 WBC (Bld) [Ratio] 0 % 0-5 [facility] Work Phone: MCHC Auto (RBC) [Mass/Vol]on 10-20-2021 MCHC (RBC) [Mass/Vol] 30.6 g/dL 32-36 [facility] Work Phone: Platelets bldon 10-20-2021 Platelets (Bld) [#/Vol] 260 10*3/uL 150-450 [facility] Work Phone: Serum or plasma cholesterol in HDL measurement (mass/volume)on 10-20-2021 Cholesterol in HDL [Mass/Vol] 35 mg/dL [facility] Work Phone: Comment on above: The drugs N-Acetylcy steine and Metamizole may falsely depress this assay. Reference Range HDL <40 mg/dL Low HDL Cholesterol HDL >or= 60 mg/dL High HDL Cholesterol Serum or plasma cholesterol in VLDL measurement (mass/volume)on 10-20-2021 Cholesterol in VLDL [Mass/Vol] 29 mg/dL 5-40 [facility] Work Phone: Serum or plasma low density lipoprotein (LDL) cholesterol measurement (mass/volume)on 10-20-2021 Cholesterol in LDL [Mass/Vol] 56 mg/dL 0-130 [facility] Work Phone: Culture, urineon 10-15-2021 Bacteria identified Cx Nom (U) Providencia rettgeri [facility] Work Phone: Bacteria identified Cx Nom (U) Vancomycin Resist. E. faecalis [facility] Work Phone: Bacteria identified Cx Nom (U) Corynebacterium striatum [facility] Work Phone: COVID PCR, SCREENING CONGREG ATEon 03-14-2020 CORONAVIRUS 2019,PCR NOT DETECTED Normal Not Detected [facility] Comment on above: Result Comment: This assay [...] patient management decisions. Fact sheet for providers: https://www.fda.gov/media/600392/download Fact sheet for patients: https://www.fda.gov/media/938204/download This test has received FDA Emergency Use Authorization (EUA) and has been verified by [facility] ([facility]). This test is only authorized for the duration of time that circumstances exist to justify the authorization of the emergency use of in vitro diagnostic tests for the detection of SARS-CoV-2 virus and/or diagnosis of COVID-19 infection under section 564(b)(1) of the Act, 21 U.S.C. 360bbb-3(b)(1), unless the authorization is terminated or revoked sooner. [facility] ([facility]) is certified under CLIA-88 as qualified to perform high complexity testing. This tests analytical performance characteristics have been determined by [facility]. Testing is performed at [facility] is located at [address] [place] [address] (CLIA License #[id number], CAP #[id number]). Performed By: #### C VCLA #### [facility] [address] [place] [address] COVID PCR, SCREENING CONGREG ATEon 03-12-2020 Lab Specimen Source Nasal, Nasopharyngeal Normal [facility] Comment on above: Performed By: #### C VCLA #### [facility] [address] [place] [address] ED Provider Noteon 9 Protein mass conc B [facility] ED eMERGENCY dEPARTMENT eNCOUnter Pt Name: Shin Rojo Birthdate 1955 Date of evaluation: 10/06/2018 Provider: Joel Mays MD CHIEF CONCERN Chief Complaint Patient presents with ? Generalized Body Aches CHIEF CONCERN / HISTORY OF PRESENT ILLNESS Here from [facility]. Today noted to be febrile. Was given [...] as needed for Muscle spasms ERGOCALCIFEROL (ERGOCALCIFEROL) 88126 UNITS CAPSULE Take 50,000 Units by mouth [...] Portable Ordering Physician JOEL JASSO Accession Number [id number] CPT4 Codes 75723 () Reason For Exam fever, sepsis eval [...] Notable for the following: Result Value Specific [place], Urine 1.003 (*) All other components within normal limits Narrative: [facility], [address] [place], [place] [address] CBC WITH AUTO DIFFERENTIAL - Abnormal; Notable for the following: RBC 3.67 (*) Hemoglobin 10.9 (*) Hematocrit 33.0 (*) All other components within normal limits Narrative: Test Performed by [facility], [address] [place], [place] [address] COMPREHENSIVE METABOLIC PANEL - Abnormal; Notable for the following: Potassium 3.4 (*) Chloride 108 (*) Glucose 149 (*) Total Protein 5.8 (*) All other components within normal limits Narrative: Test Performed by [facility], [address] [place] [address] MANUAL DIFFERENTIAL - Abnormal; Notable for the following: Seg Neutrophils 36 (*) Lymphocytes 49 (*) Monocytes 14 (*) Eosinophils 0 (*) Absolute Neut # 1.5 (*) All other components within normal limits Narrative: Test Performed by [facility], [address] [place] [address] URINE CULTURE LACTIC ACID, PLASMA Narrative: Test Performed by [facility], [address] [place] [address] URINALYSIS WITH MICROSCOPIC Narrative: Test Performed by [facility], [address] [place] [address] All other labs were within normal range [...] without hematuria DISPOSITION/PLAN DISPOSITION PATIENT REFERRED TO: AXESS POINTE [address] [place] [address] 2-3 days DISCHARGE MEDICATIONS: New Prescriptions SULFAMETHOXAZOLE-TRIMETHOP [...] Medicine Provider Joel Mays MD 10/07/18 0130 [facility] Cult Urineon 04-07-2018 [facility] are indicative of probable nonclean catchspecimen or contamination of specimen collection system.No further identification or susceptibility testing willbe performed. Please submit new specimen.Plates will be held for 5 days. Normal [facility] Comment on above: Performed By: #### C _URI ####[facility] [place], [place] [address] Culture, urine Bacteria identified Cx Nom (U) Proteus mirabilis [facility] Work Phone: Bacteria identified Cx Nom (U) Escherichia coli [facility] Work Phone: Bacteria identified Cx Nom (U) Enterococcus faecalis [facility] Work Phone: Bacteria identified Cx Nom (U) Pseudomonas aeroginosa [facility] Work Phone: Influenza virus A and B and SARS-CoV-2 (COVID-19) Ag panel - Upper respiratory specim SARS-CoV-2 & FLU Antigen (Rapid) SARS-CoV-2 (COVID 19) [facility] Work Phone: Laboratory - Microbiology an d Antimicrobial susceptibility Bacteria identified Cx Nom (Bld) No growth in 5 days. [facility] Work Phone: Vital Signs Date Time Vital Sign Value Performing Clinician Forrest andrews 02-05-2025 08:50-0400 Body height 160 cm Tiny Postlethwait 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 Work Phone: [facility] 02-05-2025 08:50-0400 Body mass index (BMI) [Ratio] 28.34 kg/m2 Tiny Postlethwait 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 Work Phone: [facility] 02-05-2025 08:50-0400 Body weight 72.58 kg Tiny Postlethwait 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 Work Phone: [facility] 02-05-2025 08:50-0400 Respiratory rate 16 /min Tiny Postlethwait 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 Work Phone: [facility] 01-27-2024 13:34-0400 Body height 160 cm Marisela Singularuk PA-C Work Phone: [facility] 01-27-2024 13:34-0400 Body mass index (BMI) [Ratio] 31.89 kg/m2 Marisela Singularuk PA-C Work Phone: [facility] 01-27-2024 13:34-0400 Body weight 81.65 kg Marisela Singularuk PA-C Work Phone: [facility] 01-05-2023 15:11-0400 Body height 160 cm Mikel Nazario MD Work Phone: [facility] 01-05-2023 15:11-0400 Body temperature 98.2 [degF] Mikel Nazario MD Work Phone: [facility] 01-05-2023 15:11-0400 Diastolic blood pressure 86 mm[Hg] Mikel Nazario MD Work Phone: [facility] 01-05-2023 15:11-0400 Heart rate 92 /min Mikel Nazario MD Work Phone: [facility] 01-05-2023 15:11-0400 SaO2% (BldA) [Mass fraction] 97 % Mikel Nazario MD Work Phone: [facility] 01-05-2023 15:11-0400 Systolic blood pressure 131 mm[Hg] Mikel Nazario MD Work Phone: [facility] 09-10-2022 01:31-0500 Body temperature 97.5 [degF] Dr. Portillo Trujillo Work Phone: [facility] 09-10-2022 01:31-0500 Diastolic blood pressure 64 mm[Hg] Dr. Portillo Trujillo Work Phone: [facility] 09-10-2022 01:31-0500 Heart rate 64 /min Dr. Portillo Trujillo Work Phone: [facility] 09-10-2022 01:31-0500 Respiratory rate 18 /min Dr. Portillo Trujillo Work Phone: [facility] 09-10-2022 01:31-0500 SaO2% (BldA) [Mass fraction] 97 % Dr. Portillo Trujillo Work Phone: [facility] 09-10-2022 01:31-0500 Systolic blood pressure 126 mm[Hg] Dr. Portillo Trujillo Work Phone: [facility] 09-08-2022 17:32-0500 Inhaled oxygen flow rate 2 L/min Dr. Portillo Trujillo Work Phone: [facility] 09-08-2022 08:44-0500 Body height 158.[address] Portillo Trujillo Work Phone: [facility] 09-08-2022 08:44-0500 Body mass index (BMI) [Ratio] 33.3 kg/m2 Dr. Portillo Trujillo Work Phone: [facility] 09-08-2022 08:44-0500 Body weight 83.[address] Portillo Trujillo Work Phone: [facility] 09-08-2022 06:41-0500 Body temperature 99 [degF] Dr. Portillo Trujillo Work Phone: [facility] Work Phone: 09-08-2022 06:41-0500 Diastolic blood pressure 60 mm[Hg] Dr. Portillo Trujillo Work Phone: [facility] Work Phone: 09-08-2022 06:41-0500 Heart rate 92 /min Dr. Portillo Trujillo Work Phone: [facility] Work Phone: 09-08-2022 06:41-0500 Inhaled oxygen flow rate 2 L/min Dr. Portillo Trujillo Work Phone: [facility] Work Phone: 09-08-2022 06:41-0500 Respiratory rate 16 /min Dr. Portillo Trujillo Work Phone: [facility] Work Phone: 09-08-2022 06:41-0500 SaO2% (BldA) [Mass fraction] 95 % Dr. Portillo Trujillo Work Phone: [facility] Work Phone: 09-08-2022 06:41-0500 Systolic blood pressure 92 mm[Hg] Dr. Portillo Trujillo Work Phone: [facility] Work Phone: 09-08-2022 03:54-0500 Body height 167.[address] Portillo Trujillo Work Phone: [facility] Work Phone: 09-08-2022 03:54-0500 Body mass index (BMI) [Ratio] 29.4 kg/m2 Dr. Portillo Trujillo Work Phone: [facility] Work Phone: 09-08-2022 03:54-0500 Body weight 82.[address] Portillo Trujillo Work Phone: [facility] Work Phone: 07-27-2022 14:28-0500 Body height 160 cm Marisela Murray PA-C Work Phone: [facility] 07-27-2022 14:28-0500 Diastolic blood pressure 80 mm[Hg] Marisela Murray PA-C Work Phone: [facility] 07-27-2022 14:28-0500 Systolic blood pressure 150 mm[Hg] Marisela Murray PA-C Work Phone: [facility] 06-09-2022 10:03-0400 Body height 160 cm Mikel Nazario MD Work Phone: [facility] 06-09-2022 10:03-0400 Body temperature 98.91 [degF] Mikel Nazario MD Work Phone: [facility] 06-09-2022 10:03-0400 Diastolic blood pressure 84 mm[Hg] Mikel Nazario MD Work Phone: [facility] 06-09-2022 10:03-0400 Heart rate 85 /min Mikel Nazario MD Work Phone: [facility] 06-09-2022 10:03-0400 SaO2% (BldA) [Mass fraction] 95 % Mikel Nazario MD Work Phone: [facility] 06-09-2022 10:03-0400 Systolic blood pressure 155 mm[Hg] Mikel Nazario MD Work Phone: [facility] 05-01-2022 15:50-0400 Body height 157.5 cm Pst 1 [facility] 05-01-2022 15:50-0400 Body temperature 97 [degF] Pst 1 [facility] 05-01-2022 15:50-0400 Body weight 77.11 kg Pst 1 [facility] 05-01-2022 15:50-0400 Diastolic blood pressure 66 mm[Hg] Pst 1 [facility] 05-01-2022 15:50-0400 Heart rate 95 /min Pst 1 [facility] 05-01-2022 15:50-0400 Respiratory rate 16 /min Pst 1 [facility] 05-01-2022 15:50-0400 SaO2% (BldA) [Mass fraction] 95 % Pst 1 [facility] 05-01-2022 15:50-0400 Systolic blood pressure 138 mm[Hg] Pst 1 [facility] 04-07-2022 10:02-0400 Body height 158.8 cm Mikel Nazario MD Work Phone: [facility] 04-07-2022 10:02-0400 Diastolic blood pressure 69 mm[Hg] Mikel Nazario MD Work Phone: [facility] 04-07-2022 10:02-0400 Heart rate 90 /min Mikel Nazario MD Work Phone: [facility] 04-07-2022 10:02-0400 SaO2% (BldA) [Mass fraction] 95 % Mikel Nazario MD Work Phone: [facility] 04-07-2022 10:02-0400 Systolic blood pressure 129 mm[Hg] Mikel Nazario MD Work Phone: [facility] 03-10-2022 09:12-0400 Body height 158.8 cm Mikel Nazario MD Work Phone: [facility] 03-10-2022 09:12-0400 Body temperature 97.7 [degF] Mikel Nazario MD Work Phone: [facility] 03-10-2022 09:12-0400 Diastolic blood pressure 80 mm[Hg] Mikel Nazario MD Work Phone: [facility] 03-10-2022 09:12-0400 Heart rate 88 /min Mikel Nazario MD Work Phone: [facility] 03-10-2022 09:12-0400 SaO2% (BldA) [Mass fraction] 96 % Mikel Nazario MD Work Phone: [facility] 03-10-2022 09:12-0400 Systolic blood pressure 137 mm[Hg] Mikel Nazario MD Work Phone: [facility] 02-03-2022 08:59-0400 Body height 160 cm Mikel Nazario MD Work Phone: [facility] 02-03-2022 08:59-0400 Body temperature 96.8 [degF] Mikel Nazario MD Work Phone: [facility] 02-03-2022 08:59-0400 Body weight 77.11 kg Mikel Nazario MD Work Phone: [facility] 02-03-2022 08:59-0400 Diastolic blood pressure 98 mm[Hg] Mikel Nazario MD Work Phone: [facility] 02-03-2022 08:59-0400 Heart rate 70 /min Mikel Nazario MD Work Phone: [facility] 02-03-2022 08:59-0400 SaO2% (BldA) [Mass fraction] 96 % Mikel Nazario MD Work Phone: [facility] 02-03-2022 08:59-0400 Systolic blood pressure 150 mm[Hg] Mikel Nazario MD Work Phone: [facility] 01-22-2022 10:08-0400 Body height 160 cm Nacho Navarrete Jr., MD Work Phone: [facility] 01-22-2022 10:08-0400 Body weight 68.95 kg Nacho Navarrete Jr., MD Work Phone: [facility] 01-22-2022 10:08-0400 Diastolic blood pressure 88 mm[Hg] Nacho Navarrete Jr., MD Work Phone: [facility] 01-22-2022 10:08-0400 Systolic blood pressure 142 mm[Hg] Nacho Navarrete Jr., MD Work Phone: [facility] Encounters Encounter Date Encounter Type Care Provider Facility Start: 07-03-2025 ambulatory Out of Town Doctor Forrest andrews:[facility] Start: 04-10-2025 End: 04-10-2025 ambulatory Out of Town Doctor -[facility] Start: 04-10-2025 End: 04-10-2025 Departed Referred Twan Guerrero MD [facility] Start: 04-10-2025 End: 04-10-2025 ambulatory Out of Town Doctor Facility:[facility] Start: 02-26-2025 ambulatory Out of Town Doctor Moei lity:[facility] Start: 02-26-2025 Registered Referred Twan Guerrero MD [facility] Start: 02-05-2025 End: 02-05-2025 Office outpatient visit 10 minutes Tiny [facility] NANCY Work Phone: [facility] Comment on above: Retention of urine, unspecified (Primary Dx) Start: 02-05-2025 End: 02-05-2025 ambulatory [facility] Facility:[facility] Start: 01-16-2025 End: 01-16-2025 ambulatory Out of Town Doctor [facility] Work Phone: Start: 01-16-2025 End: 01-16-2025 Departed Referred Twan Guerrero MD [facility] Start: 01-16-2025 End: 01-16-2025 ambulatory Twan JACSKON Facility:[facility] Start: 10-24-2024 ambulatory Out of Town Doctor Moei lity:[facility] Start: 10-24-2024 Registered Referred Twan Guerrero MD [facility] Start: 10-14-2024 End: 10-14-2024 Emergency department patient visit Abel Wang Facility:[facility] Start: 08-01-2024 End: 08-01-2024 ambulatory Out of Town Doctor Facility:[facility] Start: 01-27-2024 End: 01-27-2024 Patient encounter procedure Marisela Murray PA-C Work Phone: [facility] Comment on above: Retention of urine, unspecified (Primary Dx) Start: 12-21-2023 End: 12-21-2023 ambulatory [facility] Work Phone: Start: 12-21-2023 End: 12-21-2023 Patient encounter procedure [facility], [facility] Work Phone: Start: 12-21-2023 Registered Referred [facility] Start: 11-22-2023 End: 11-22-2023 ambulatory [facility] Work Phone: Start: 11-22-2023 End: 11-22-2023 Departed Referred [facility] Start: 11-22-2023 Registered Referred [facility] Start: 11-09-2023 End: 11-09-2023 ambulatory [facility] Work Phone: Start: 11-09-2023 End: 11-09-2023 Departed Referred [facility] Start: 09-22-2023 End: 09-22-2023 ambulatory [facility] Work Phone: Start: 09-22-2023 End: 09-22-2023 Departed Referred [facility] Start: 08-30-2023 End: 08-30-2023 ambulatory [facility] Work Phone: Start: 08-30-2023 End: 08-30-2023 Departed Referred [facility] Start: 06-07-2023 End: 06-07-2023 ambulatory [facility] Work Phone: Start: 06-07-2023 End: 06-07-2023 Departed Referred [facility] Start: 03-15-2023 End: 03-15-2023 ambulatory [facility] Work Phone: Start: 03-15-2023 End: 03-15-2023 Departed Referred [facility] Start: 01-06-2023 End: 01-06-2023 ambulatory [facility] Work Phone: Start: 01-06-2023 End: 01-06-2023 Departed Referred [facility] Start: 01-05-2023 End: 01-05-2023 Visit (SP) Office Mikel Nazario MD Work Phone: [facility] Gynecology Oncology Comment on above: 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 Portillo Trujillo Work Phone: [facility] Work Phone: Start: 10-27-2022 End: 10-27-[address] Portillo Trujillo Work Phone: [facility] Start: 10-07-2022 Telephone encounter Marisela morrell PA-C Work Phone: Urology Comment on above: Orders Start: 09-22-2022 End: 09-22-[address] Portillo Trujillo Work Phone: [facility] Work Phone: Start: 09-22-2022 End: 09-22-[address] Portillo Trujillo Work Phone: [facility] Start: 09-15-[address] Portillo Trujillo Work Phone: [facility] Start: 09-09-2022 Non-patient / Non-visit Dr. Zach Trujillo Work Phone: [facility] Start: 09-08-2022 End: 09-10-2022 Evaluation and management of inpatient Dr. Portillo Trujillo [facility] Start: 09-08-2022 Non-patient / Non-visit Dr. Zach Trujillo Work Phone: [facility] Start: 08-04-2022 End: 08-04-2022 ambulatory [facility] Work Phone: Start: 08-04-2022 End: 08-04-2022 Departed Referred [facility] Start: 07-27-2022 End: 07-27-2022 Patient encounter procedure Marisela Murray PA-C Work Phone: [facility] Comment on above: Retention of urine, unspecified (Primary Dx) Start: 07-02-2022 Telephone encounter Marisela morrell PA-C Work Phone: [facility] Comment on above: Results Start: 06-29-2022 End: 06-29-[address] 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 (HCC); 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) Start: 05-01-2022 End: 05-01-2022 Admission to [address] Start: 05-01-2022 End: 05-01-2022 ambulatory [facility] 1 Pre Surgical Testing Comment on above: Pre-op testing (Prim ron Dx); Iron deficiency anemia, unspecified iron deficiency anemia type [D50.9 (ICD-10-CM)]; Mixed hyperlipidemia [E78.2 (ICD-10-CM)]; Multiple sclerosis (HCC) [G35 (ICD-10-CM)]; 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)] Start: 05-01-2022 End: 05-01-2022 Patient encounter status Pst 1 Pre Surgical Te sting Start: 04-24-2022 Telephone encounter Mikel monteiro MD Work Phone: [facility] Gynecology Oncology Comment on above: Preparations For Ashtyn marvin; Returning Patient's Call Start: 04-07-2022 End: 04-07-2022 Manual pelvic examination Mikel Nazario MD Work Phone: [facility] Gynecology Oncology Comment on above: Pelvic mass in femal e (Primary Dx); Multiple sclerosis (HCC); Complete immobility due to severe physical disability or frailty (HCC) Bilateral tubo-ovari an mass (Primary Dx) Start: 04-07-2022 End: 04-07-2022 Patient encounter procedure Mikel Nazario MD Work Phone: [facility] Start: 04-06-2022 End: 04-06-2022 Departed Referred [facility] Start: 04-06-2022 Registered Referred [facility] Start: 04-01-2022 End: 04-01-2022 Departed Referred [facility] Start: 03-10-2022 End: 03-10-2022 ambulatory Mikel Nazario MD Work Phone: [facility] Gynecology Oncology Comment on above: Bilateral tubo-ovari an mass (Primary Dx); MS (multiple sclerosis) (HCC); Retention of urine, unspecified Start: 03-10-2022 End: 03-10-2022 Patient encounter procedure Mikel Nazario MD Work Phone: [facility] Start: 02-23-2022 End: 02-23-2022 Departed Referred [facility] Start: 02-23-2022 Registered Referred [facility] Start: 02-18-2022 End: 02-18-2022 Departed Referred [facility] Start: 02-03-2022 End: 02-03-2022 ambulatory Mikel Nazario MD Work Phone: [facility] Gynecology Oncology Comment on above: MS (multiple scleros is) (HCC) (Primary Dx); Bilateral tubo-ovarian mass; Retention of urine, unspecified Start: 02-03-2022 End: 02-03-2022 Patient encounter procedure Mikel Nazario MD Work Phone: [facility] Start: 01-22-2022 End: 01-22-2022 Patient encounter procedure Nacho Navarrete MD Work Phone: [facility] Comment on above: Urinary retention (P rimary Dx) Start: 01-12-2022 End: 01-12-2022 Departed Referred [facility] Start: 01-12-2022 Registered Referred [facility] Start: 12-31-2021 End: 12-31-2021 Departed Referred [facility] Start: 12-31-2021 Registered Referred [facility] Start: 12-25-2021 End: 12-25-2021 Subsequent hospital visit by physician Ct [facility] Comment on above: oral prep bladder mass Start: 10-20-2021 End: 10-20-2021 Departed Referred [facility] Start: 10-20-2021 Registered Referred [facility] Start: 10-15-2021 End: 10-15-2021 Departed Referred [facility] Start: 01-09-2019 Patient encounter procedure RENETTA HEATH Facility:[facility] Start: 10-07-2018 Emergency department patient visit UNKNOWN PROVIDER [facility] Start: 04-07-2018 End: 04-08-2018 Patient encounter MARISELA MURRAY Facility:[facility] Start: 04-07-2018 End: 04-07-2018 Patient encounter MARISELA MURRAY Facility:[facility] Start: 04-01-2018 End: 04-01-2018 Patient encounter MARISELA MURRAY Facility:[facility] Start: 03-28-2018 Patient encounter MARISELA MURRAY Fac ility:[facility] Start: 03-04-2018 End: 03-04-2018 Patient encounter MARISELA MURRAY Facility:[facility] Procedures Date Procedure Procedure Detail Performing [...] Portillo bee Work Phone: Urine culture Dr. Portillo bee Work Phone: Plan of Treatment Date Care Activity Detail Author Start: 2030 RSV Vaccine (1 - 1-d ose 75+ series) RSV Vaccine (1 - 1-dose 75+ series) [facility] Start: 02-06-2026 End: 02-06-2026 Patient encounter procedure 02/06/2026 8:40 AM EDT Office Visit [facility] [address] [place] [phone] Tiny Garcia APRN.PLANT ENGINEERING SUPERVISOR [address] [place] [address] 12 months follow up [facility] Comment on above: 12 months follow up Start: 05-21-2025 Influenza vaccination Influenz a Vaccine (Season Ended) [facility] Start: 05-01-2025 DIABETES SCREEN DIABETES SCREEN [facility] Start: 05-01-2025 Diabetes Screening Diabetes Screenin g [facility] Start: 02-06-2025 End: 02-06-2025 Patient encounter procedure 02/06/2025 9:10 AM EDT Office Visit [facility] [address] [place] [phone] Prisca Valentine, LITZY.PLANT ENGINEERING SUPERVISOR [address] [place] [address] 1 year follow up [facility] Comment on above: 1 year follow up Start: 09-20-2024 Advance Directive Discussion Advance Directive Discussion [facility] Start: 05-21-2024 Covid-19 Vaccine ( season) Covid-19 Vaccine ( season) [facility] Start: 05-21-2024 Influenza vaccination Influenz a Vaccine (Season Ended) [facility] Start: 09-20-2023 Advance Directive Discussion Advance Directive Discussion [facility] Start: 09-20-2023 Behavioral Health Screening Behavioral Health Screening [facility] Start: 05-21-2023 Covid-19 Vaccine ( season) Covid-19 Vaccine ( season) [facility] Start: 05-21-2023 Influenza vaccination INFLUENZ A (Season Ended) [facility] Start: 01-05-2023 End: 03-07-2023 Cancer Ag 125 [Units/volume] in Serum or Plasma CA 125 BLD Lab Routine 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) Expected: 01/05/2023, Expires: 03/07/2023 [facility] Work Phone: Comment on above: Expected: 01/05/2023 , Expires: 03/07/2023 Start: 09-20-2022 ADVANCE DIRECTIVE DISCUSSION ADVANCE DIRECTIVE DISCUSSION [facility] Start: 09-20-2022 DEPRESSION ASSESSMENT DEPRESSION ASS ESSMENT [facility] Start: 09-09-2022 Patient discharge [facility] Start: 09-09-2022 Care planning and pr oblem solving actions [facility] Start: 09-09-2022 Alanine aminotransfe rase [Enzymatic activity/volume] in Serum or Plasma [facility] Work Phone: Start: 09-09-2022 Aspartate aminotrans ferase [Enzymatic activity/volume] in Serum or Plasma [facility] Work Phone: Start: 09-09-2022 Blood chemistry [facility] Work Phone: Start: 09-09-2022 CBC W Auto Different ial panel - Blood [facility] Work Phone: Start: 09-09-2022 Complete blood count [facility] Work Phone: Start: 09-09-2022 [facility] Work Phone: Start: 09-08-2022 [facility] Work Phone: Start: 09-08-2022 Following clinical p athway protocol [facility] Start: 09-08-2022 Alkaline phosphatase [Enzymatic activity/volume] in Serum or Plasma [facility] Work Phone: Start: 09-08-2022 Assessment of risk o f venous thromboembolism [facility] Start: 09-08-2022 Insertion of cathete r into peripheral vein [facility] Start: 09-08-2022 Providing care accor ding to standard [facility] Start: 09-08-2022 Respiratory secretio n precautions [facility] Start: 09-08-2022 [facility] Start: 09-08-2022 [facility] Start: 09-08-2022 Incentive spirometry [facility] Start: 09-08-2022 Physiotherapy of chest [facility] Start: 09-08-2022 Bacteria identified in Sputum by Culture [facility] Work Phone: Start: 09-08-2022 Legionella pneumophi la Ag [Presence] in Urine [facility] Work Phone: Start: 09-08-2022 Streptococcus pneumo niae antigen assay [facility] Work Phone: Start: 09-08-2022 Verification routine [facility] Work Phone: Start: 09-08-2022 Admission procedure [facility] Start: 09-08-2022 End: 09-08-2022 Blood culture [facility] Work Phone: Start: 09-08-2022 End: 09-08-2022 [facility] Start: 07-27-2022 End: 09-26-2022 Bacteria identified in Urine by Culture URINE CULTURE Microbiology Routine Urinary retention Expected: 07/27/2022, Expires: 09/26/2022 [facility] Work Phone: Comment on above: Expected: 07/27/2022 , Expires: 09/26/2022 Start: 05-21-2022 Influenza vaccination C [facility] Start: 04-07-2022 End: 06-07-2022 CBC panel - Blood by Automated count CBC Lab Routine Pelvic mass in female Expected: 04/07/2022, Expires: 06/07/2022 [facility] Work Phone: Comment on above: Expected: 04/07/2022 , Expires: 06/07/2022 Start: 04-07-2022 End: 06-07-2022 Comprehensive metabolic 2000 panel - Serum or Plasma COMP METABOLIC PANEL Lab Routine Pelvic mass in female Expected: 04/07/2022, Expires: 06/07/2022 [facility] Work Phone: Comment on above: Expected: 04/07/2022 , Expires: 06/07/2022 Start: 04-07-2022 End: 04-07-2023 SARS-CoV-2 (COVID-19) RNA [Presence] in Respiratory specimen by ERNI with probe detection PRE-PROCEDURE & PRE-OPERATIVE COVID Microbiology Routine Pelvic mass in female Expected: 04/07/2022, Expires: 04/07/2023 [facility] Work Phone: Comment on above: Expected: 04/07/2022 , Expires: 04/07/2023 Start: 04-07-2022 End: 06-07-2022 TYPE AND SCREEN,30 DAY TYPE AND SCREEN,30 DAY Blood Bank Routine Pelvic mass in female Expected: 04/07/2022, Expires: 06/07/2022 [facility] Work Phone: Comment on above: Expected: 04/07/2022 , Expires: 06/07/2022 Start: 03-24-2022 End: 04-09-2023 Us pelvic nonobstetric real-time image complete US FEMALE PELVIS TRANSABD COMPLETE Radiology Routine Bilateral tubo-ovarian mass Expected: 03/24/2022 (Approximate), Expires: 04/09/2023 [facility] Work Phone: Comment on above: Expected: 03/24/2022 (Approximate), Expires: 04/09/2023 Start: 09-20-2021 ADVANCE DIRECTIVE DISCUSSION ADVANCE DIRECTIVE DISCUSSION [facility] Start: 09-20-2021 DEPRESSION ASSESSMENT DEPRESSION ASS ESSMENT [facility] Start: 02-11-2020 BONE DENSITY BONE DENSITY [facility] Start: 02-11-2020 Pneumococcal Vaccine : 65+ (1 of 1 - PCV) Pneumococcal Vaccine: 65+ (1 of 1 - PCV) [facility] Start: 02-11-2020 PNEUMOCOCCAL: 65+ (1 - PCV) PNEUMOCOCCAL: 65+ (1 - PCV) [facility] Start: 02-11-2020 PNEUMOVAX AGE 65 AND OVER WITH 5YR LOOKBACK (#1) PNEUMOVAX AGE 65 AND OVER WITH 5YR LOOKBACK (#1) [facility] Start: 02-11-2020 Screening for osteoporosis Bone Dens ity Screening [facility] Start: 2015 RSV Vaccine (1 - 1-d ose 60+ series) RSV Vaccine (1 - 1-dose 60+ series) [facility] Start: 12-26-2014 Adult depression scr eening assessment DEPRESSION SCREENING [facility] Start: 2005 Pneumococcal Vaccine : 50+ (1 of 1 - PCV) Pneumococcal Vaccine: 50+ (1 of 1 - PCV) [facility] Start: 2005 SHINGRIX VACCINE (1 of 2) RICH GRIX VACCINE (1 of 2) [facility] Start: 02-11-2000 COLOGUARD (FIT-DNA) COLOGUARD (FIT-D NA) [facility] Start: 02-11-2000 Colonoscopy COLONOSCOPY [facility] Start: 02-11-2000 COLORECTAL CANCER SCREENING COLORECTAL CANCER SCREENING [facility] Start: 02-11-[address] COLONOGRAPHY [facility] Start: 02-11-2000 DIABETES SCREEN DIABETES SCREEN [facility] Start: 02-11-2000 FECAL OCCULT BLOOD FECAL OCCULT BLOO D [facility] Start: 02-11-2000 Lipid panel Lipid Screening [facility] Start: 02-11-2000 LIPID SCREEN LIPID SCREEN [facility] Start: 02-11-2000 Screening for malign ant neoplasm of colon [facility] Start: 02-11-2000 SIGMOIDOSCOPY SIGMOIDOSCOPY [facility] Start: 1995 Mammography MAMMOGRAM [facility] Start: 1995 Screening for malign ant neoplasm of breast Mammogram Screening [facility] Start: 1974 Urine microalbumin profile [facility] Start: 1973 Anxiety Screening Anxiety Screening [facility] Start: 1973 Depression Screening Depression Scre ening [facility] Start: 1973 HEPATITIS C SCREENING HEPATITIS C [facility] Start: 1973 Hepatitis C screening Hepatitis C [facility] Start: 02-11-1960 COVID-19 VACCINE (#1) COVID-19 VACCI NE (#1) [facility] Start: 02-11-1960 COVID-19 VACCINE (1) [facility] Start: 1955 COVID-19 VACCINE (#1) COVID-19 VACCI NE (#1) [facility] Alanine aminotransfe rase [Enzymatic activity/volume] in Serum or Plasma [facility] Work Phone: Albumin [Mass/volume ] in Serum or Plasma [facility] Work Phone: Alkaline phosphatase [Enzymatic activity/volume] in Serum or Plasma [facility] Work Phone: Anion gap measurement [facility] Work Phone: Aspartate aminotrans ferase [Enzymatic activity/volume] in Serum or Plasma [facility] Work Phone: Bacteria identified in Blood by Culture Blood Culture [facility] Work Phone: Bilirubin, total measurement [facility] Work Phone: Blood culture [facility] Work Phone: BUN/Creatinine ratio [facility] Work Phone: Calcium [Mass/volume ] in Serum or Plasma [facility] Work Phone: Carbon dioxide, tota l [Moles/volume] in Serum or Plasma [facility] Work Phone: Chloride [Moles/volu me] in Serum or Plasma [facility] Work Phone: Creatinine [Moles/vo lume] in Serum or Plasma [facility] Work Phone: Glucose [Mass/volume ] in Serum or Plasma [facility] Work Phone: Hematocrit [Volume Fraction] of Blood [facility] Work Phone: Hemoglobin [Mass/vol ume] in Blood [facility] Work Phone: Leukocytes [#/volume ] in Blood [facility] Work Phone: Mean corpuscular hemoglobin concentration determination [facility] Work Phone: Mean corpuscular hemoglobin determination [facility] Work Phone: Measurement of renal function [facility] Work Phone: Neutrophil count [facility] Work Phone: Neutrophil percent differential count [facility] Work Phone: Patient referral [facility] Work Phone: Platelets [#/volume] in Blood [facility] Work Phone: Potassium [Moles/vol ume] in Serum or Plasma [facility] Work Phone: Red blood cell count [facility] Work Phone: Red cell distributio n width determination [facility] Work Phone: Sodium [Moles/volume ] in Serum or Plasma [facility] Work Phone: Total protein measurement [facility] Work Phone: Urea nitrogen [Mass/volume] in Serum or Plasma [facility] Work Phone: Urine culture Urine Culture [facility] Work Phone: [facility] Payers Date Payer Category Payer Medicaid [id number] 2024 Self-pay [id number] 2021 Medicare 2021 Medicare (Managed Care) [facility] MEDICARE [id number] 2019 Medicaid [id number] 2019 Medicare [id number] 2019 Unknown [id number] 1955 Unknown [id number] Medicare [id number] Medicare [id number] Private Health Insurance Unknown [id number] Unknown [id number] Unknown [id number] Unknown [id number] Unknown [id number] Unknown [id number] Unknown [id number] Social History Date Type Detail Facility Start: 07-13-2016 End: 10-14-2024 Tobacco smoking status NHIS Never smoked tobacco [facility] Work Phone: Start: 08-13-2021 End: 02-05-2025 Alcohol intake Current non-drinker of alcohol (finding) [facility] Start: 1955 Sex Assigned At Not on file [facility] Start: 12-15-2021 End: 07-27-2022 Exposure to SARS-CoV-2 (event) Not sure [facility] Start: 03-25-2021 End: 09-08-2022 Tobacco smoking status SCIS Unknown if ever smoked [facility] Start: 1955 Sex Assigned At Female [facility] Start: 07-13-2016 Tobacco use and exposure Smokeless tobacco non-user [facility] Start: 01-27-2024 End: 02-05-2025 History of Social function [facility] Start: 01-27-2024 End: 02-05-2025 Tobacco use panel [facility] National Score (1-100), lower number is lower risk Not on file [facility] Goals Date Patient Goal Desired Activity /State Functional Status Date Assessment Result Facility 09-09-2022 Functional status Bedrest [facility] Work Phone: 05-12-2022 Are you deaf, or do you have serious difficulty hearing No 05/12/2022 3:44 PM EDT Rosalba Lala RN No [facility] 05-12-2022 Are you blind, or do you have serious difficulty seeing, even when wearing glasses No 05/12/2022 3:44 PM EDT Rosalba Lala RN No [facility] 05-12-2022 Do you have serious difficulty walking or climbing stairs Yes 05/12/2022 3:44 PM EDT Rosalba Lala RN Yes [facility] 05-12-2022 Do you have difficul ty dressing or bathing Yes 05/12/2022 3:44 PM EDT Rosalba Lala RN Yes [facility] 05-12-2022 Because of a physica l, mental, or emotional condition, do you have difficulty doing errands alone such as visiting a physician's office or shopping Yes 05/12/2022 3:44 PM EDT Rosalba Lala RN Yes [facility] Mental Status Date Assessment Result Facility 09-09-2022 Cognitive function Voice/Name [facility] Work Phone: 09-08-2022 Cognitive function Level Of Cons ciousness Awake;Alert;Appropriate;Fol lows Commands [facility] Work Phone: 05-12-2022 Because of a physica l, mental, or emotional condition, do you have serious difficulty concentrating, remembering, or making decisions No 05/12/2022 3:44 PM EDT Rosalba Lala RN No [facility] Clinical Notes 12-25-2021 to 02-05-2025 Posthelen, Tiny Merlos APRN.CNP - 02/05/2025 8:40 AM Marisela Tavarez PA-C - 01/27/2024 1:12 PM Jocelyne Nazario MD - 01/05/2023 3:00 PM Martha Murray PA-C - 07/27/2022 3:12 PM EST Note Date & Type Note Facility 02-05-2025 History of Present illness Narrative Images from the original note were not included. [facility] [place] [facility] ESTABLISHED UROLOGY VISIT 02/05/2025 9:00 AM PATIENT [...] 0.65 % nasal spray, Sig Use 1 [place] in the nose every 2 hours as [...] one year or sooner PRN Tiny Garcia APRN.PLANT ENGINEERING SUPERVISOR Return in about 1 year (around 02/05/2026). documented in this encounter [facility] 02-05-2025 Note HNO ID: [id number] Author: TINY GARCIA APRN.CNP Service: ? Author Type: Nurse Practitioner Type: Progress Notes Filed: 02/05/2025 09:06 Note Text: [facility] [place] [facility] ESTABLISHED UROLOGY VISIT 02/05/2025 9:00 AM PATIENT [...] Taking? , Authoriz (more content not included)... [facility] 01-27-2024 History of Present illness Narrative ESTABLISHED [...] OCEAN) 0.65 % nasal spray Use 1 [place] in the nose every 2 hours as [...] which included preparing to see the patient, [id number] patient care, completing clinical documentation, obtaining and/or reviewing separately obtained history, and counseling and educating the patient/family/caregiver. documented in this encounter [facility] 12-21-2023 Procedure note [facility] 01-05-2023 History of Present illness Narrative Gynecologic Oncology [facility] [place] [facility] Follow up visit Date of service: 01/05/2023 PROBLEM/CC: Shin Rojo presents for 6 month follow-up. HPI: Ms. Rojo is a 67 year old female with bilateral pelvic cystic masses referred for urogynaecologist/onc evaluation. Today she is s/p 05/11/2022 BSO [...] a and B were reviewed at the [facility] gynecologic pathology consensus conference via telepathology on [...] OCEAN) 0.65 % nasal spray Use 1 [place] in the nose every 2 hours as [...] Not tender. Mild pitting edema. No phlebitis Program Manufacturing Leader for exam: Yue Alcantara APRN, PLANT ENGINEERING SUPERVISOR RESULTS: CA 125: 01/01/2022 = 19 U/mL [...] [facility]. She had laboratory studies collected recently, [...] - march. 04/07/22: Karrie Colmenares DO, MARICARMENA, RIBBING MACHINE OPERATOR PGY-2 67 year old female with bilateral [...] cystic structures were present but smaller -Given correction presence of cysts and slow growth, low [...] 2023 3:49 PM documented in this encounter [facility] 10-07-2022 Miscellaneous Notes Ok to send the order Patient with current SP tube. [facility] nurse calling for verbal orders to change amount of time catheter is flushed daily. Current order is to flush 3x day twice with saline and once with acetic acid. Patient would like to have the catheter flushed only twice daily. Once with saline and one with acetic acid. Please call [phone] and ask for nurse caring for patient. Yamilet Osman RN documented in this encounter [facility] 07-27-2022 History of Present illness Narrative ESTABLISHED [...] OCEAN) 0.65 % nasal spray Use 1 [place] in the nose every 2 hours as [...] which included preparing to see the patient, [id number] patient care, completing clinical documentation, and counseling and educating the patient/family/caregiver. documented in this encounter [facility] 07-02-2022 Miscellaneous Notes Please fax antibiotic script to facility. Marisela Murray PA-C documented in this encounter [facility] 06-26-2022 Miscellaneous Notes Crystal informed. They will fax results. Eugenio Yanez Ma signed Facility called stating that Shin is having a pink color to her urine and is complaining of pressure in her bladder. They are asking if you would like to do a urine culture? Pended if needed. Can you advise? Eugenio Yanez Ma Apostolic [phone] Crystal documented in this encounter [facility] 06-09-2022 History of Present illness Narrative Gynecologic Oncology [facility] [place] [facility] Post-Op Visit Date of service: 06/09/2022 PROBLEM/CC: Shin Rojo returns to the office today for her postoperative visit. HPI:Ms. Rojo is a 67 year old female with bilateral pelvic cystic masses referred for urogynaecologist/onc evaluation. Today she is s/p 05/11/2022 BSO [...] a and B were reviewed at the [facility] gynecologic pathology consensus conference via telepathology on [...] OCEAN) 0.65 % nasal spray Use 1 [place] in the nose every 2 hours as [...] a and B were reviewed at the [facility] gynecologic pathology consensus conference via telepathology on [...] - 99 mg/dL 106 High Comment: The [place] [employer] (ADA) provides guidance for cutoff [...] Standards of Medical Care in Diabetes 2016, [place] [employer]. Diabetes Care. 2016.39(Suppl 1). BUN [...] prior scans may [facility]. She had laboratory studies collected recently, [...] - march. 04/07/22: Karrie Colmenares DO, MARICARMENA, RIBBING MACHINE OPERATOR PGY-2 67 year old female with bilateral [...] cystic structures were present but smaller -Given correction presence of cysts and slow growth, low [...] Electronically signed:Alex Gentile, Mikel Nazario MD, Physician, June 09, 2022 10:17 AM documented in this encounter [facility] 05-01-2022 History of Present illness Narrative Summary: PAT RED DOT CC TEODORO please review with anesthesia and see if further optimization is needed before surgery. Thank you! Patient has sever MS, is non-ambulatory, wheelchair-domínguez in SNF using Brigitte socially responsible investment adviser, described below Recent unconfirmed EKG in paper [...] ordered per surgeon will be drawn at [facility]. Atrial fibrillation - patient states years ago had only once, pt unsure if taken blood thinners before, but denies any issues since then. on ASA. Instructed patient to have SNF contact surgeon for instruction. HLD - on atorvastatin, pt not sure if taking zetia, not on med list provided by SNF, she only knows is taking medication for cholesterol documented in this encounter [facility] 05-01-2022 History and physical note HISTORY AND [...] Pre surgical testing HPI: Patient presents to [facility] for the above procedure. Shin is a [...] angina, CAD, chest pain, DVT/PE and recent MD. GI: Negative for: abdominal pain, hepatitis, liver disease, nausea and vomiting. : Positive for: indwelling catheter (SP catheter). Negative for: dysuria, flank pain and hematuria. CONFIGURATION MANAGEMENT CONSULTANT: See HPI. Endocrine: Negative for: diabetes mellitus, [...] OCEAN) 0.65 % nasal spray Use 1 [place] in the nose every 2 hours as [...] or any previous visit (from the past 40301 hour(s)). Assessment No problem-specific Assessment & Plan notes found for this encounter. Diro Activity Status Index: METS: DASI Score: 0 [...] testing ordered per surgeon. ABO ordered per CARBON SETTER. Assessment/Plan Bilateral tubo-ovarian mass [N83.8] PLAN Diagnosis: [...] PM PAGER/CONTACT #: documented in this encounter [facility] 04-30-2022 Instructions Leo Fair APRN.CNP - 04/30/2022 6:02 PM EDT PATIENT PREOPERATIVE INSTRUCTIONS Your surgeon has scheduled for your procedure at this surgery center: [facility]: [phone], [address] [phone] Please enter through the main entrance and proceed to the blue elevators. The surgery welcome center is located to the left of [...] before scheduled surgery. Bring your Glucometer to [facility] if you are scheduled in [place] for [place]. If you have a stimulator, [...] surgery. - YOU MUST HAVE A RESPONSIBLE SHAREPOINT APPLICATION ARCHITECT TAKE YOU HOME. A EMAIL CAMPAIGN MANAGER, CAB OR UBER SHAREPOINT APPLICATION ARCHITECT CANNOT BE MADE A RESPONSIBLE SHAREPOINT APPLICATION ARCHITECT. - We recommend that a responsible person [...] of surgery. Orthopedic patients having [facility] [place] [facility] listed as outpatient should bring their walker into the building. Orthopedic patients having surgery [facility] listed as to be admitted should leave their walkers in the car or with a family member. Hibiclens provided Leo Fair APRN.CNP 04/30/22 documented in this encounter [facility] 04-24-2022 Miscellaneous Notes Returned patents call about rescheduling the PST, advised we rescheduled for 05/01/22 at 3 same location and she understood and the change helped her schedule. Kaycee Park 04/24/22 documented in this encounter [facility] 04-07-2022 History of Present illness Narrative Gynecologic Oncology [facility] Follow up visit Date of service: 04/07/2022 PROBLEM/CC: Shin Rojo presents for follow-up. HPI: Ms. Rojo is a 67 year old female with bilateral pelvic cystic masses referred for urogynaecologist/onc evaluation. Diagnosis with MS at 56. Has [...] NASAL) 0.65 % nasal spray Use 1 [place] in the nose every 2 hours as [...] there is a cystic mass containing septations, [id number] cm. Conclusion: hypoechoic pelvic mass, etiology undetermined. 12/25/2021 CT ABD/PEL IMPRESSION: 1. 14.8 x 9.8 x 9.8 cm complex septated cystic mass in the left adnexa. Adjacent to this lesion along the right side is a bilobed cystic mass measuring 3.9 x 6.1 x 3.9 cm. Ovarian neoplasm is a primary concern. CONFIGURATION MANAGEMENT CONSULTANT consultation is recommended. 2. No ascites or [...] thorax: Subsegmental atelectasis/scarring at the lung bases. Nail Welter (topogram) images: No additional findings 03/31/22 Transabdominal [...] prior scans may have been [facility]. She had laboratory studies collected recently, [...] cystic structures were present but smaller -Given correction presence of cysts and slow growth, low [...] sign for herself so her accompanying caregiver (Latrell MACHINE OPERATOR HOP PICKER) signed her consent form in her presence [...] is current for today. Karrie Colmenares DO, MHA RIBBING MACHINE OPERATOR PGY-2 04/07/2022 11:33 AM Patient examined and discussed with Dr. Nazario. documented in this encounter [facility] 03-10-2022 History of Present illness Narrative Gynecologic Oncology [facility] [place] [facility] Follow up visit Date of service: 03/10/2022 PROBLEM/CC: Shin Rojo presents for follow-up. HPI: Ms. Rojo is a 67 year old female with bilateral pelvic cystic masses referred for urogynaecologist/onc evaluation. Concerned about abdominal girth growth and [...] at 56. Has significantly lost muscle strength. penitentiary insists she use a brigitte and wheelchair [...] NASAL) 0.65 % nasal spray Use 1 [place] in the nose every 2 hours as [...] extremities. Not tender. No ulcers or swelling. Program Manufacturing Leader for exam: Mansi Jolly RESULTS: CA 125: 19 (lab adult reference [id number]). RESULTS: 12/04/21: Transabdominal US Suprapubic catheter. The uterus and ovaries are not identified. The bladder is empty. Superior to the catheter there is a cystic mass containing septations, [id number] cm. Conclusion: hypoechoic pelvic mass, etiology undetermined. 12/25/2021 CT ABD/PEL IMPRESSION: 1. 14.8 x 9.8 x 9.8 cm complex septated cystic mass in the left adnexa. Adjacent to this lesion along the right side is a bilobed cystic mass measuring 3.9 x 6.1 x 3.9 cm. Ovarian neoplasm is a primary concern. CONFIGURATION MANAGEMENT CONSULTANT consultation is recommended. 2. No ascites or [...] thorax: Subsegmental atelectasis/scarring at the lung bases. Nail Welter (topogram) images: No additional findings ASSESSMENT & [...] prior scans may have [facility]. She had laboratory studies collected recently, [...] DATE: 03/10/2022 TIME: 10:13 AM PAGER/CONTACT #: [phone] documented in this encounter [facility] 02-03-2022 History of Present illness Narrative Gynecologic Oncology [facility] Date of service: 02/03/2022 PROBLEM/CC: Shin [...] NASAL) 0.65 % nasal spray Use 1 [place] in the nose every 2 hours as [...] approximately 8-10 years with most recent being [facility] for about a year. She has been being followed with US for a cyst. She doesn't recall prior CT scans. Pelvic US at [facility] in November 2021 report isn't available [...] her left upper and lower extremity today. Program Manufacturing Leader for exam: Blanca RESULTS: 12/25/2021 CT ABD/PEL IMPRESSION: 1. 14.8 x 9.8 x 9.8 cm complex septated cystic mass in the left adnexa. Adjacent to this lesion along the right side is a bilobed cystic mass measuring 3.9 x 6.1 x 3.9 cm. Ovarian neoplasm is a primary concern. CONFIGURATION MANAGEMENT CONSULTANT consultation is recommended. 2. No ascites or [...] thorax: Subsegmental atelectasis/scarring at the lung bases. Nail Welter (topogram) images: No additional findings No results [...] prior scans may have been done at [facility]. She had laboratory studies collected recently, [...] Past Histories independently gathered by the clinical technical support representative and the remaining scribed note accurately describes my personal service to the patient. documented in this encounter [facility] 01-22-2022 History of Present illness Narrative ESTABLISHED [...] NASAL) 0.65 % nasal spray Use 1 [place] in the nose every 2 hours as [...] retention (primary encounter diagnosis) Plan: Refer to urogynaecologist/onc Prn with vt Nacho Navarrete Jr, MD 01/22/2022 documented in this encounter [facility] 12-25-2021 History of Present illness Narrative Radiology [...] TIME: 12:32 PM documented in this encounter [facility] Evaluation note [facility] Evaluation note Diagnosis Urinary retention- Primary Retention of urine, unspecified [facility] Diagnosis MS (multiple sclerosis) (HCC)- Primary Multiple sclerosis Bilateral tubo-ovarian mass Retention of urine, unspecified [facility] Bilateral tubo-ovarian mass- Primary MS (multiple sclerosis) (HCC) Multiple sclerosis Retention of urine, unspecified [facility] Diagnosis Pelvic mass in female- Primary Abdominal or pelvic swelling, mass or lump, unspecified site Multiple sclerosis (HCC) Multiple sclerosis Complete immobility due to severe physical disability or frailty (HCC) Functional quadriplegia Bilateral tubo-ovarian mass [facility] Bilateral tubo-ovarian mass- Primary Bilateral tubo-ovarian mass [facility] Diagnosis Pre-op testing- Primary Preoperative examination, unspecified Iron deficiency anemia, unspecified iron deficiency anemia type [D50.9 (ICD-10-CM)] Mixed hyperlipidemia [E78.2 (ICD-10-CM)] Mixed hyperlipidemia Multiple sclerosis (HCC) [G35 (ICD-10-CM)] Multiple sclerosis 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)] Bilateral tubo-ovarian mass documented in this encounter [facility] note* Diagnosis Multiple sclerosis (HCC)- Primary Multiple sclerosis Complete immobility due to severe physical disability or frailty (HCC) Functional quadriplegia 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) documented in this encounter [facility] note* Diagnosis Urinary retention- Primary Retention of urine, unspecified documented in this encounter [facility] note* Diagnosis Retention of urine, unspecified- Primary documented in this encounter [facility] note* Diagnosis Onset Date Resolution Status COVID-19 acute Depression acute History of atrial fibrillation acute Hypoxia acute Multiple sclerosis acute COPD (chronic obstructive pulmonary disease) chronic [facility] Work Phone: Evaluation note* Diagnosis Onset Date Resolution Status Depression acute History of atrial fibrillation acute COPD (chronic obstructive pulmonary disease) chronic COVID-19 resolved Hypoxia resolved [facility] Work Phone: Evaluation note* Diagnosis 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)- Primary Complete immobility due to severe physical disability or frailty (HCC) Functional quadriplegia Multiple sclerosis (HCC) Multiple sclerosis documented in this encounter [facility] note* Diagnosis Retention of urine, unspecified- Primary documented in this encounter [facility] note* Diagnosis Retention of urine, unspecified- Primary documented in this encounter [facility] for referral (narrative)* Diagnostic Procedure Only (Routine) - Authorized Specialty Diagnoses / Procedures Referred By Contac t Referred To Contact US IMAGING Diagnoses Bilateral tubo-ovarian mass Procedures US FEMALE PELVIS TRANSABD COMPLETE US PELVIC NONOBSTETRIC REAL-TIME IMAGE COMPLETE Yue Rios, 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 [address] [place] [address] Us Imaging Referral ID Status Reason Start Date Expiration Date Visits Requested Visits Authorized [id number] Authorized Auto-Generat ed Referral 03/24/2022 04/09/2023 1 1 [facility])No reason for referral information availableWAdena Pike [facility] Work Phone: Reason for visit Narrative* Diagnostic Procedure Only (Routine) - Closed Specialty Diagnoses / Procedures Referred By Contac t Referred To Contact RADIO CT SCAN [facility] Diagnoses Bladder Mass pt will have order Procedures CT ABDOMEN W & W/O CONTRAST CT WWO ABD1 [address] [place] [id number] Scan [facility] [address] [place] [address] Referral ID Status Reason Start Date Expiration Date Visits Re quested Visits Authorized [id number] Closed 12/25/2021 03/19/2022 1 1 [facility] Summary Purpose Family History No Family History Records FoundNo Family History Records FoundNo Family History Records FoundNo Family History Records FoundNo Family History Records FoundNo Family History Records FoundNo Family History Records Found Advance Directives No Advanced Directives Records Found Advance Directive Response Recorded Date/ Time Living Will No March 25, 2021 5 :45pm Power of Brush Stainer No March 25, 2021 5:45pm Advance Directive Response Recorded Date/ Time Living Will No March 25, 2021 4 :45pm Power of Brush Stainer No March 25, 2021 4:45pm Advance Directive Response Recorded Date/ Time Name of Medical Power of Brush Stainer WOJCIECH KOMALDUONG September 08, 2022 4:02am Living Will No September 08 4:02am Power of Brush Stainer Yes September 08, 2022 4:02am Advance Directive Response Recorded Date/ Time Name of Medical Power of Brush Stainer WOJCIECH KOMALDUONG September 08, 2022 4:02am Living Will No September 08 8:44am Power of Brush Stainer No September 08, 2022 8:44am Advance Directive Response Recorded Date/ Time Living Will No September 08 9:44am Power of Brush Stainer No September 08, 2022 9:44am Advance Directive Response Recorded Date/ Time Living Will No Kg 20th, 2 022 8:44am Power of Brush Stainer No September 08, 2022 8:44am Chief Complaint and Reason for Visit Chief Complaint SNF LABWORK SNF LABWORK Chief Complaint SNF LABWORK SNF LABWORK SNF LABWORK Chief Complaint SNF LABWORK LABWORK SNF LAB WORK Chief Complaint SNF LABWORK LABWORK SNF LAB WORK SNF LAB WORK Chief Complaint SNF LABWORK LABWORK SNF LAB WORK Chief Complaint SNF LABWORK LABWORK SNF LAB WORK FEVER COVID 19 INFECTION IWTH HYPOXIA Reason for Visit COVID-19 Depression History of atrial fibrillation Hypoxia Multiple sclerosis COPD (chronic obstructive pulmonary disease) Chief Complaint SNF LABWORK LABWORK SNF LAB WORK FEVER COVID 19 INFECTION WITH HYPOXIA COVID 19 INFECTION WITH HYPOXIA Reason for Visit COVID-19 Depression History of atrial fibrillation Hypoxia Multiple sclerosis COPD (chronic obstructive pulmonary disease) Chief Complaint SNF LABWORK LABWORK SNF LAB WORK FEVER COVID 19 INFECTION WITH HYPOXIA COVID 19 INFECTION WITH HYPOXIA SNF LAB WORK Reason for Visit Depression History of atrial fibrillation COPD (chronic obstructive pulmonary disease) COVID-19 Hypoxia Chief Complaint SNF LAB WOR K FEVER COVID 19 INFECTION WITH HYPOXIA COVID 19 INFECTION WITH HYPOXIA SNF LAB WORK SNF LABWORK Reason for Visit Depression History of atrial fibrillation COPD (chronic obstructive pulmonary disease) COVID-19 Hypoxia Chief Complaint SNF LAB WOR K SNF LABWORK SNF LAB WORK LABWORK Chief Complaint LABWORK SNF LAB WORK Chief Complaint SNF LAB WOR K LABWORK Chief Complaint LABWORK SNF JENIFER WORK Chief Complaint SNF JENIFER WOR K SNF LAB WORK Chief Complaint SNF JENIFER WOR K SNF LAB WORK SNF LAB WORK Chief Complaint SNF JENIFER WOR K SNF LAB WORK SNF LAB WORK SNF LAB WORK Chief Complaint SNF JENIFER WOR K SNF LAB WORK SNF LAB WORK SNF LAB WORK DYSPHAGIA Chief Complaint SNF LAB WOR K SNF LAB WORK LABWORK DYSPHAGIA Chief Complaint Admit Date SNF LAB WORK October 24, 2024 5:00am SNF LAB WORK January 16, 2025 4 :00am Chief Complaint Admit Date SNF LAB WORK February 26, 2025 5:0 0am SNF LAB WORK April 10, 2025 5: 00am Additional Source Comments INFORMATION SOURCE (unrecogn ized section and content) DATE CREATED AUTHOR 04/10/2018 Brody Landrum [facility] DATE CREATED AUTHOR AUTHOR'S LETY GAINES 11/19/2018 [facility] DATE CREATED AUTHOR AUTHOR'S ORGANIZ ATION 01/09/2019 [facility] ([place]) DATE CREATED AUTHOR AUTHOR'S ORGANIZ ATION 04/08/2020 [facility] DATE CREATED AUTHOR AUTHOR'S ORGANIZ ATION 09/02/2022 [facility] DATE CREATED AUTHOR AUTHOR'S ORGANIZ ATION 02/05/2025 [facility] DATE CREATED AUTHOR AUTHOR'S ORGANIZ ATION 07/26/2025 [facility] Source Comments (unrecognize d section and content) In the event this informatio n is protected by the Federal Confidentiality of Alcohol and Drug Abuse Patient Records regulations: The Federal rules restrict any use of the information to criminally investigate or prosecute any alcohol or drug abuse patient.[facility] CenterIn the event this information is protected by the Federal Confidentiality of Alcohol and Drug Abuse Patient Records regulations: The Federal rules restrict any use of the information to criminally investigate or prosecute any alcohol or drug abuse patient.[facility] CenterIn the event this information is protected by the Federal Confidentiality of Alcohol and Drug Abuse Patient Records regulations: The Federal rules restrict any use of the information to criminally investigate or prosecute any alcohol or drug abuse patient.[facility] CenterIn the event this information is protected by the Federal Confidentiality of Alcohol and Drug Abuse Patient Records regulations: The Federal rules restrict any use of the information to criminally investigate or prosecute any alcohol or drug abuse patient.[facility] CenterIn the event this information is protected by the Federal Confidentiality of Alcohol and Drug Abuse Patient Records regulations: The Federal rules restrict any use of the information to criminally investigate or prosecute any alcohol or drug abuse patient.[facility] CenterIn the event this information is protected by the Federal Confidentiality of Alcohol and Drug Abuse Patient Records regulations: The Federal rules restrict any use of the information to criminally investigate or prosecute any alcohol or drug abuse patient.[facility] CenterIn the event this information is protected by the Federal Confidentiality of Alcohol and Drug Abuse Patient Records regulations: The Federal rules restrict any use of the information to criminally investigate or prosecute any alcohol or drug abuse patient.[facility] CenterIn the event this information is protected by the Federal Confidentiality of Alcohol and Drug Abuse Patient Records regulations: The Federal rules restrict any use of the information to criminally investigate or prosecute any alcohol or drug abuse patient.[facility] CenterIn the event this information is protected by the Federal Confidentiality of Alcohol and Drug Abuse Patient Records regulations: The Federal rules restrict any use of the information to criminally investigate or prosecute any alcohol or drug abuse patient.[facility] CenterIn the event this information is protected by the Federal Confidentiality of Alcohol and Drug Abuse Patient Records regulations: The Federal rules restrict any use of the information to criminally investigate or prosecute any alcohol or drug abuse patient.[facility] CenterIn the event this information is protected by the Federal Confidentiality of Alcohol and Drug Abuse Patient Records regulations: The Federal rules restrict any use of the information to criminally investigate or prosecute any alcohol or drug abuse patient.[facility] CenterIn the event this information is protected by the Federal Confidentiality of Alcohol and Drug Abuse Patient Records regulations: The Federal rules restrict any use of the information to criminally investigate or prosecute any alcohol or drug abuse patient.[facility] CenterIn the event this information is protected by the Federal Confidentiality of Alcohol and Drug Abuse Patient Records regulations: The Federal rules restrict any use of the information to criminally investigate or prosecute any alcohol or drug abuse patient.[facility] CenterIn the event this information is protected by the Federal Confidentiality of Alcohol and Drug Abuse Patient Records regulations: The Federal rules restrict any use of the information to criminally investigate or prosecute any alcohol or drug abuse patient.[facility] CenterIn the event this information is protected by the Federal Confidentiality of Alcohol and Drug Abuse Patient Records regulations: The Federal rules restrict any use of the information to criminally investigate or prosecute any alcohol or drug abuse patient.[facility] CenterIn the event this information is protected by the Federal Confidentiality of Alcohol and Drug Abuse Patient Records regulations: The Federal rules restrict any use of the information to criminally investigate or prosecute any alcohol or drug abuse patient.[facility] CenterIn the event this information is protected by the Federal Confidentiality of Alcohol and Drug Abuse Patient Records regulations: The Federal rules restrict any use of the information to criminally investigate or prosecute any alcohol or drug abuse patient.[facility] Care Teams (unrecognized sec tion and content) Team Status: Active Member Role Status Dates Out of [facility] Doctor Primary Care Provider Active Team Status: Active Member Role Status Dates Out of [facility] Doctor Primary Care Provider Active Start: October 24, 2024 Twan JACKSON MD Attending Provider Active S tart: October 24, 2024 Team Status: Inactive Member Role Status Dates Out of [facility] Doctor Primary Care Provider Active Start: [...] Active Member Role Status Dates Out of Town Doctor Primary Care Provider Active Twanbeatrice JACKSON MD Attending Provider Active Team Status: Inactive Member Role Status Dates BRITTANI ARORA Primary Care Provide r, Attending Provider, Referring Provider Active Team Status: Active Member Role Status Dates Twan JACKSON MD Primary Care Provider Active Weave Defect Charting Clerk Relationship Specialty Start Date End Date [facility] [address] [address] PCP - General Family Practice 07/15/21 Weave Defect Charting Clerk Relationship Specialty Start Date End Date [facility] [address] [address] PCP - General Family Practice 07/15/21 Weave Defect Charting Clerk Relationship Specialty Start Date End Date [facility] [address] [address] PCP - General Family Practice 07/15/21 Weave Defect Charting Clerk Relationship Specialty Start Date End Date [facility] [address] [address] PCP - General Family Practice 07/15/21 Weave Defect Charting Clerk Relationship Specialty Start Date End Date [facility] [address] [address] PCP - General Family Practice 07/15/21 Weave Defect Charting Clerk Relationship Specialty Start Date End Date [facility] [address] [address] PCP - General Family Practice 07/15/21 Weave Defect Charting Clerk Relationship Specialty Start Date End Date [facility] [address] [address] PCP - General Family Practice 07/15/21 Weave Defect Charting Clerk Relationship Specialty Start Date [place] [address] PCP - General Family Practice 07/15/21 Weave Defect Charting Clerk Relationship Specialty Start Date End Date Portillo Trujillo [address] [place] [address] PCP - General Family Practice 07/15/21 Weave Defect Charting Clerk Relationship Specialty Start Date End Date Portillo Trujillo [address] [place] [address] PCP - General Family Medicine 07/15/21 Weave Defect Charting Clerk Relationship Specialty Start Date End Date Portillo Trujillo [address] [address] PCP - General Family Medicine 07/15/21 Weave Defect Charting Clerk Relationship Specialty Start Date End Date Portillo Trujillo [address] [address] PCP - General Family Medicine 07/15/21 Weave Defect Charting Clerk Relationship Specialty Start Date End Date Portillo Trujillo [address] [address] PCP - General Family Medicine 07/15/21 Team Status: Active Member Role Status Dates Twan Guerrero MD Primary Care Provider Active Team Status: Active Member Role Status Dates Dr. Portillo Trujillo , DO Primary Care Provider Active Dr. Vern Mcintosh , DO Emergency Provider Active Dr. Wojciech Hodge MD Attending Provider Active Team Status: Active Member Role Status Dates Dr. Portillo Trujillo , DO Primary Care Provider Active Dr. Vern Mcintosh , DO Emergency Provider Active Dr. Wojciech Hodge MD Admit Provider, Other Provider A ctive Dr. Maco Blackmon MD Attending Provider, Other Provider Active Dr. Gail Houston , DO Other Provider Active Team Status: Inactive Member Role Status Dates Dr. Portillo Trujillo , DO Primary Care Provider Active Portillo Trujillo [...] MD Primary Care Provider, Attending Provider Active Weave Defect Charting Clerk Relationship Specialty Start Date End Date Portillo Trujillo DO [address] [place] [address] PCP - General Family Medicine 07/15/21 Weave Defect Charting Clerk Relationship Specialty Start Date End Date Portillo Trujillo DO [address] [place] [address] PCP - General Family Medicine 07/15/21 Team Status: Active Member Role/Relationship Status Dates [facility] Doctor Primary care physician Active Team Status: Active Member Role/Relationship Status Dates [facility] Doctor Primary care physician Active Start: February 26, 2025 Twan JACKSON MD Attending physician Active Start: February 26, 2025 Team Status: Inactive Member Role/Relationship Status Dates [facility] Doctor Primary care physician Active Start: April 10, 2025 End: April 10, 2025 Twan JACKSON MD Attending physician Active Start: April 10, 2025 End: April 10, 2025 Goals (unrecognized section and content) Goals may [...] BE BASED ON THE PRIMARY CLINICAL RECORDS. [employer] provides no warranty or guarantee of the accuracy or completeness of information in this document.
[2025-08-13 08:13] LABS: Hematocrit 38.3 % (37-47); Hemoglobin 11.9 g/dL (12.0-15.0); Mean Corp Hgb Conc 31.1 g/dL (32-36); Mean Corpuscular Volume 93.0 fL (81-99); Mean Platelet Vol. 10.4 fl (6.2-12.0); Platelet Count 251 K/mm3 (150-450); RBC Distribution Width CV 14.1 % (11.6-14.6); RBC Distribution Width SD 48.0 fl (35.1-43.9); Red Blood Count 4.12 M/mm3 (4.2-5.4); White Blood Count 7.4 K/mm3 (4.4-11.0)
[2025-08-13 08:33] LABS: AST(SGOT) 23 U/L (<=31); Alanine Aminotransfer ALT/SGPT 28 U/L (<=34); Albumin, Serum 3.8 g/dL (3.4-4.8); Alkaline Phosphatase 84 U/L (35-104); Anion Gap 11 (5-15); BUN 13 mg/dL (4-19); BUN/Creat Ratio 23.6 RATIO (10-20); Calcium,Total 8.9 mg/dL (7.6-11.0); Carbon Dioxide 23.0 mmol/L (21.0-32.0); Chloride 110 mmol/L (98-108); Globulin 2.4 g/dL (2.2-4.2); Glucose 130 mg/dL (70-99); Potassium 4.1 mmol/L (3.3-5.1)
== END ==
LOC: OLS.ACH 05:00
PROVIDERS: Visit Provider Internal Medicine
DX: G35.D Multiple sclerosis, unspecified (principal)
CPT/HCPCS: 36415; 80053; 85027